=== PATIENT | female | born 1940 | race Caucasian/White ===

== ENCOUNTER 2017-07-06 11:05 | Emergency (ER) | payer MEDICARE, OTHER, SELFPAY ==
[2017-07-06] VITALS (7 sets, daily range): BP systolic 120–169; BP diastolic 67–74; PULSE 68–76; RESP 12–19; TEMP 36.7; O2SAT 93–100; BMI 28.3
--- NOTE | 2017-07-06 11:09 | EKG12_ITS ---
Test Reason : CP Blood Pressure : / mmHG Vent. Rate : 069 BPM Atrial Rate : 069 BPM P-R Int : 132 ms QRS Dur : 080 ms QT Int : 380 ms P-R-T Axes : 049 024 080 degrees QTc Int : 407 ms Normal sinus rhythm Nonspecific ST abnormality Abnormal ECG Confirmed by JARON VALDEZ ([id number]), pictures editor LOBO JACKSON ([id number]) on 07/10/2017 9:45:24 AM Referred By: TODD Confirmed By:JARON VALDEZ
--- NOTE | 2017-07-06 11:09 | RAD_ITS ---
STUDY: X-RAY CHEST REASON FOR EXAM: Female, 77 years old. Chest tightness. TECHNIQUE: Single AP portable view of the chest. COMPARISON: Comparison is made with prior study dated August 21, 2016. FINDINGS: EKG electrodes are seen. Hyperinflation. Scattered calcified granulomas. No acute abnormality is seen. There is no demonstrated pleural abnormality. Normal size heart. Normal mediastinum and eric. Normal visualized pulmonary arteries. There is atherosclerotic calcification of the aortic arch with tortuosity. There are degenerative changes of the visualized thoracic spine. Normal visualized ribs, clavicles, and shoulders. There is no demonstrated abnormality of the visualized soft tissue structures of the upper abdomen. RAD/Chest 1 View (Portable) IMPRESSION: No acute abnormality is seen. Electronically Signed: Ronal Day MD at 12:19 EST Tel [phone], Service support ,
[2017-07-06 12:29] LABS: Absolute Lymphocyte Count 1.43 X10^3/ul (0.83-4.51); Absolute Neutrophil Count 4.6 X10^3/uL (2.0-7.7); Basophil# 0.03 X10^3/uL; Basophil% 0.4 % (0-1); Eosinophil# 0.13 X10^3/uL; Eosinophils% 1.9 % (0-5); Hematocrit 40.3 % (37-47); Lymphocyte # 1.43 X10^3/ul (4.0); Mean Corp Hgb Conc 34.7 g/gl (32-36); Mean Corpuscular Hgb 29.2 pg (27.0-32.0); Mean Corpuscular Volume 84.1 fL (81-99); Mean Platelet Vol. 10.7 fl (6.2-12.0); Monocyte% 8.8 % (0-10); Neutrophil # 4.62 X10^3/uL (2.7-7.7); Neutrophil % 67.8 % (47-70); Platelet Count 202 K/mm3 (150-450); RBC Distribution Width CV 13.4 % (11.6-14.6); RBC Distribution Width SD 40.1 fl (35.1-43.9); Red Blood Count 4.79 M/mm3 (4.2-5.4); White Blood Count 6.8 K/mm3 (4.4-11.0)
[2017-07-06 12:34] LABS: POSITIVE COUNT NO; POSITIVE DIFFERENTIAL NO; POSITIVE MORPHOLOGY NO
[2017-07-06 12:41] LABS: Anion Gap 8 (5-15); BUN 22 mg/dL (7-18); BUN/Creat Ratio 16.5 RATIO (10-20); Calcium,Total 8.4 mg/dL (8.5-10.1); Chloride 109 mmol/L (98-107); Creatinine, Serum 1.33 mg/dL (0.55-1.02); EST Glomerular Filtration Rate 41 mL/min (>60); Est Glom Filt Rate - Afr Amer 50 mL/min (>60); Estimated Creatinine Clearance 27.57 ml/min; Glucose 85 mg/dL (70-110); Potassium 4.1 mmol/L (3.5-5.1); Sodium Level 141 mmol/L (136-145)
--- NOTE | 2017-07-06 16:46 | ED.DCSUM_ITS ---
- ER Visit Summary Date of Service: 07/06/17 Chief Complaint: Chest pain History of Present Illness: The patient is a 77 F presenting for evaluation secondary to chest pain. Patient states that yesterday she had an onset of chest pain at about 2300. She describes it as a tightness in her chest that she had some radiation to her arms she went to sleep and felt that it resolved when she woke up. Patient states that abnormal activity this morning it seemed to happen again. She took some nitroglycerin and felt like it went away. Patient states that she tried to seek care at her fitness worker to urgent care but everybody directed her to the emergency department. Patient reports that she has had a negative stress test within the last 12 months. Review of systems otherwise negative. Physical Examination: Vital signs are within normal limits, patient is afebrile. General: Patient is well-nourished well-developed and in no acute distress. Head: Normocephalic, atraumatic Eyes: Pupils equal round and reactive bilaterally, extra occular motion intact bialterally ENT: Moist mucous membranes Neck: Supple, no lymphadenopathy, no JVD, no meningismus CVS: Heart regular rate and rhythm, no murmurs, rubs or gallops, radial pulses 2 + bilaterally Resp: Respirations nondistressed, lung sounds clear bilaterally Abdomen: Soft, nontender, nondistended, no palpable masses, normal bowel sounds Back: Nontender Extremities: Nontender, atraumatic, active full range of motion, no peripheral edema Skin: warm, no rashes, no petechia Neuro: Alert and oriented x 4, CN 2-12 intact, no lateralizing neurological defecits Psyc: Normal affect Test Results: EKG shows sinus rate [address] segments normal T waves, unchanged from prior EKG. CBC unremarkable, chemistry shows mild elevation of creatinine of 1.3, troponin found to be negative. Delta troponin found to be negative. Emergency Department Course and Treatment: Patient presented for evaluation secondary chest pain. Patient's workup was noted as above. Patient's CASTRO risk score was found to be 3, but she has a negative stress test within the last 12 months and her symptoms actually sound relatively atypical. I discussed her story with her fitness worker Dr. Roach who is in agreement. We performed a delta troponin at 3 hours and the patient was found to be negative. She was pain-free throughout the stay. I believe she is safe for discharge to follow up with her fitness worker. Disposition: Discharge Impression: 1. Noncardiac chest pain This note was generated with Clik[employer] dictation software. It may contain incorrect words, spelling, and punctuation that were not noted in review of the chart prior to signing ED Disposition - Plan for ED Patient: Disposition: Home or Assisted Living Chief Complaint: Chest Pain Diagnosis: Chest pain Instructions: ED Chest Pain NonCardiac Referrals: Enrique Roach MD [STAFF PHYSICIAN] - 1-2 Weeks
== END 2017-07-06 17:05 | disposition home or self-care (01) ==
PROVIDERS: Emergency Provider Emergency Medicine; Family Provider Internal Medicine; PCP Internal Medicine
DX: R07.89 Other chest pain (principal); I25.10 Atherosclerotic heart disease of native coronary artery without angina pectoris; I10 Essential (primary) hypertension; Z79.82 Long term (current) use of aspirin; Z79.02 Long term (current) use of antithrombotics/antiplatelets; Z79.899 Other long term (current) drug therapy
CPT/HCPCS: 71045; 80048; 84484; 85025; 93005; 99285

== ENCOUNTER → 2017-08-08 09:37 | Outpatient (CLI) | payer MEDICARE, OTHER, SELFPAY ==
[2017-08-08 10:28] LABS: Hematocrit 38.9 % (37-47); Hemoglobin 13.2 g/dl (12.0-15.0); Mean Corp Hgb Conc 33.9 g/gl (32-36); Mean Corpuscular Hgb 29.2 pg (27.0-32.0); Mean Corpuscular Volume 86.1 fL (81-99); Mean Platelet Vol. 10.7 fl (6.2-12.0); Platelet Count 224 K/mm3 (150-450); RBC Distribution Width CV 13.2 % (11.6-14.6); Red Blood Count 4.52 M/mm3 (4.2-5.4); White Blood Count 6.8 K/mm3 (4.4-11.0)
[2017-08-08 10:33] LABS: Scan Indicated on CBC? Y/N NO
[2017-08-08 11:10] LABS: Anion Gap 7 (5-15); BUN 25 mg/dL (7-18); BUN/Creat Ratio 24.3 RATIO (10-20); Calcium,Total 8.5 mg/dL (8.5-10.1); Chloride 108 mmol/L (98-107); Creatinine, Serum 1.03 mg/dL (0.55-1.02); EST Glomerular Filtration Rate 55 mL/min (>60); Est Glom Filt Rate - Afr Amer 67 mL/min (>60); Glucose 79 mg/dL (74-106); Sodium Level 141 mmol/L (136-145)
== END ==
PROVIDERS: Family Provider Internal Medicine; PCP Internal Medicine; Visit Provider Internal Medicine Cardiovascular Disease
DX: I25.118 Atherosclerotic heart disease of native coronary artery with other forms of angina pectoris (principal); R07.9 Chest pain, unspecified; Z95.5 Presence of coronary angioplasty implant and graft
CPT/HCPCS: 36415; 80048; 85027

== ENCOUNTER 2017-08-13 09:05 | Day surgery (SDC) | payer MEDICARE, OTHER, SELFPAY ==
[2017-08-10 10:36] VITALS: BMI 28.6
[2017-08-13] VITALS (34 sets, daily range): BP systolic 98–185; BP diastolic 43–102; PULSE 58–75; RESP 11–22; TEMP 36.3–37; O2SAT 94–99; BMI 29.0; BMI 29.1
--- NOTE | 2017-08-13 11:24 | CL.D_ITS ---
Patient Name: LISETTE ENAMORADO Study Date: 08/13/2017 Performing: Enrique oRach MD Ht: 62.59 inches 159 cm : 1940 Wt: 158.73 lbs 72 kg Age: 77 Gender: female BSA: 1.74 PROCEDURE(S) PERFORMED AH98-HWH/COR/LV CLINICAL PROFILE AND INDICATIONS INDICATIONS: 77 yo lady with chest pain Stress/Imaging Stress/Image Study Performed: No Angina Classification Anginal Classification w/in 2 Weeks: CCS III CAD Presentations: Unstable angina. CONCLUSIONS CAD with instent stenosis of the LAD and instent stenosis of non dominant RCA RECOMMENDATIONS Referred for immediate PCI DESCRIPTION OF PROCEDURE The patient arrived to the procedure lab. The risks and benefits of the procedure as well as a full d escription of our services here and current unavailability of surgical backup were fully explained to the patient and/or their significant other prior to the catheterization. The Timeout was completed, verifying the correct patient and procedure. The patient's procedural site was prepped and draped in the usual fashion. Local anesthetic was given subcutaneously to right radial region with Lidocaine 2% . Using a modified Seldinger technique, arterial access was obtained via the right radial artery, a 6 Fr sheath was inserted. Left Coronary Artery selective angiography was performed in multiple views u sing a 5 Fr. 4.0 Caney catheter. Right Coronary Artery selective angiography was then performed in mu ltiple views using a 5 Fr. 4.0 Caney catheter. Left Coronary Artery selective angiography was perform ed in multiple views using a 5 Fr. JL3.5 catheter. Left Ventriculography was performed in MONROY project ion using a 5 Fr. Pigtail catheter. LV to AO pullback pressures were then recorded. CORONARY ANGIOGRAPHY DOMINANCE: Left Dominant LEFT HEART ASSESSMENT Normal LV wall motion Normal Left Ventricular systolic function LEFT MAIN: Angiographically normal LEFT ANTERIOR DECENDING ARTERY: MID LAD: Previously placed stent has an instent 99 % restenosis CIRCUMFLEX ARTERY: Angiographically normal RIGHT CORONARY ARTERY: OSTIAL RCA: Previously placed stent has an instent 80 % restenosis COMPLICATIONS PROCEDURE MEDICATIONS Fentanyl 50 mcg IV Versed 1 mg IV Versed 1 mg IV Fentanyl 50 mcg IV Oxygen: 2 L/min via nasal cannula Heparin diluted in 23cc Heparinized saline. Patient given 10cc IA of this solution. 08/13/2017 10:52:3 2 Heparin 6000 unit(s) IV 08/13/2017 11:16:19 Verapamil 2.5mg, Ntg 100mcgs, 2000 units of Heparin diluted in 23cc Heparinized saline. Patient give n 10cc IA of this solution. 08/13/2017 10:52:32 Verapamil 2.5mg, Ntg 100mcgs, given IA 08/13/2017 11:21:38 SUMMARY OF HEMODYNAMIC DATA Time AIR REST ECG 09:31:24 AO 130/69 (94) SA 10:56:08 LV 165/12, 22 11:10:17 LV 167/11, 21 11:10:24 LV 153/12, 22 11:11:33 LVp 164/23, 26 11:11:38 AOp 167/76 (115) 11:11:43 AO 166/76 (115) 11:11:50 Signed By Enrique Roach MD On 08/13/2017 11:24:16 Enrique Roach MD
[2017-08-13 11:51] LABS: ACT Activated Clotting Time 224 sec (74-137)
[2017-08-13 11:51] LABS: ACT Activated Clotting Time 252 sec (74-137)
--- NOTE | 2017-08-13 11:53 | CL.I_ITS ---
Patient Name: LISETTE ENAMORADO Study Date: 08/13/2017 Performing: Christian Linton MD Ht: 62.6 inches 159 cm : 1940 Wt: 158.73 lbs 72 kg Age: 77 Gender: female BSA: 1.74 PROCEDURE(S) PERFORMED PF50-MKV W OR WO PTCA, SINGLE CORONARY ARTERY CLINICAL PROFILE AND CO-MORBIDITIES INDICATIONS: 77 yo lady with chest pain Stress/Imaging Stress/Image Study Performed: No Angina Classification Anginal Classification w/in 2 Weeks: CCS III CAD Presentations: Unstable angina. CONCLUSIONS Successful TAMMY to ISR Mid LAD using Resolute Integrity 2.5x12 mm RECOMMENDATIONS ASA Indefinitley Plavix for at least 12 months DESCRIPTION OF PROCEDURE The patient arrived to the procedure lab. The risks and benefits of the procedure as well as a full d escription of our services here and current unavailability of surgical backup were fully explained to the patient and/or their significant other prior to the catheterization. The Timeout was completed, verifying the correct patient and procedure. The patient's procedural site was prepped and draped in the usual fashion. Local anesthetic was given subcutaneously to right radial region with Lidocaine 2% Using a modified Seldinger technique,arterial access was obtained via the right radial artery, a 6Fr sheath was inserted. Left Coronary Artery selective angiography was performed in multiple views usin g a 5 Fr. 4.0 Melbourne catheter. Right Coronary Artery selective angiography was then performed in multi ple views using a 5 Fr. 4.0 [place] catheter. Left Coronary Artery selective angiography was performed in multiple views using a 5 Fr. JL3.5 catheter. Left Ventriculography was performed in MONROY projection using a 5 Fr. Pigtail catheter. LV to AO pullback pressures were then recorded.The images were revie wed and options discussed. A decision was then made to proceed with an Intervention, IVUS or other ad junct procedure. XB 3 Guide catheter was inserted and engaged into the LCA. Runthrough Guide wire was advanced to the LAD. 2.5x12 Resolute Drug Eluting stent was inserted Drug Eluting stent was advanced across the lesio n in the LAD, mid. Angiogram performed post stent deployment. 2.5x15 NC Emerge Balloon catheter was i nserted. Balloon catheter was inserted post stent. Balloon catheter was advanced across lesion in the LAD, mid. Angiogram performed post stent deployment. Angiogram performed post stent deployment.. . The arterial sheath was pulled and a TR Band was applied for hemostasis. 18cc of air. INTERVENTION INFORMATION LESION SITE: LAD (Mid) Lesion Complexity: Non-High/Non-C, culprit lesion: Yes, In-stent restenosis: Yes Pre Stenosis: 99 % Pre intervention CASTRO flow: 2 PROCEDURE: Drug Eluting Stent with post dilatation Post Stenosis: 0 % Post intervention CASTRO flow: 3 Lesion Devices: Cordis 6 Fr XB3.0 100cm Guide Catheter Terumo .014 Runthrough Extra Floppy 180cm straight Medtronic Resolute RX TAMMY 2.5x12 Tomi Sci NC EMERGE MR 2.50x15 BALLOON COMPLICATIONS No Complications PROCEDURE MEDICATIONS Fentanyl 50 mcg IV Versed 1 mg IV Versed 1 mg IV Fentanyl 50 mcg IV Oxygen: 2 L/min via nasal cannula Heparin diluted in 23cc Heparinized saline. Patient given 10cc IA of this solution. 08/13/2017 10:52:3 2 Heparin 6000 unit(s) IV 08/13/2017 11:16:19 Heparin 1500 unit(s) IV 08/13/2017 11:25:29 Nitro 200 mcg IC 08/13/2017 11:31:21 Plavix 300 mg PO 08/13/2017 11:41:33 Verapamil 2.5mg, Ntg 100mcgs, 2000 units of Heparin diluted in 23cc Heparinized saline. Patient give n 10cc IA of this solution. 08/13/2017 10:52:32 Verapamil 2.5mg, Ntg 100mcgs, given IA 08/13/2017 11:21:38 SUMMARY OF HEMODYNAMIC DATA Time AIR REST ECG 09:31:24 AO 130/69 (94) SA 10:56:08 LV 165/12, 22 11:10:17 LV 167/11, 21 11:10:24 LV 153/12, 22 11:11:33 LVp 164/23, 26 11:11:38 AOp 167/76 (115) 11:11:43 AO 166/76 (115) 11:11:50 RM AIR REST 11:24:37 AIR REST AO 143/70 (97) 11:24:39 Signed By Christian Linton MD On 08/13/2017 11:53:08 Christian Linton MD
[2017-08-13] MEDS: 0.9% Normal Saline 1,000 ML 100 ML IV (12:50)
--- NOTE | 2017-08-13 13:28 | CRPHASE1 ---
Patient Data/Charges Former Patient:: Phase II - ATTENDED CARDIAC REHAB APPROX 2 YEARS AGO Insurance #1:: [employer] FOR LIFE Poultry Offal Worker:: Enrique Roach
--- NOTE | 2017-08-13 13:29 | CRPHASE1_ITS ---
Patient Data/Charges Former Patient:: Phase II - ATTENDED CARDIAC REHAB APPROX 2 YEARS AGO Insurance #1:: [employer] FOR LIFE Outcome Analyst:: Enrique Roach
--- NOTE | 2017-08-13 13:29 | CRPHASE1 ---
Patient Data/Charges Former Patient:: Phase II - ATTENDED CARDIAC REHAB APPROX 2 YEARS AGO Insurance #1:: MEDICARE Insurance #2:: FOR LIFE Employment Consultant:: Enrique Roach Phase II Referral:: [facility] Risk Factors/Lifestyle Smoking Status: Never smoker Hx Hypertension: Yes Hx Diabetes Mellitus Type 1: No Hx Diabetes Mellitus Type 2: No Hx Dyslipidemia: Yes Hx Obesity: No Height: 62.5 m Weight:: 72 kg BMI: 0.0 Post-Menopausal: Yes Past Cardiac Illness: Coronary Artery Disease, Previous PCI w/Stent Phase I Education Given On:: [place] Knowledge of Condition:: Yes Medical/Surgical History Angina:: Yes CAD:: Yes Diabetes Type I:: No Diabetes Type II:: No Hypertension:: Yes Dyslipidemia:: Yes Discharge/Home/Social Eval Discharge Disposition: Home - PT ATTENDED REHAB IN RECENT PAST, INTRO TO CR MINIMAL, OVERVIEW GIVEN
--- NOTE | 2017-08-13 13:35 | CRPHASE1_ITS ---
Patient Data/Charges Former Patient:: Phase II - ATTENDED CARDIAC REHAB APPROX 2 YEARS AGO Insurance #1:: MEDICARE Insurance #2:: FOR LIFE Half Backer:: Enrique Roach Phase II Referral:: [facility] Risk Factors/Lifestyle Smoking Status: Never smoker Hx Hypertension: Yes Hx Diabetes Mellitus Type 1: No Hx Diabetes Mellitus Type 2: No Hx Dyslipidemia: Yes Hx Obesity: No Height: 62.5 m Weight:: 72 kg BMI: 0.0 Post-Menopausal: Yes Past Cardiac Illness: Coronary Artery Disease, Previous PCI w/Stent Phase I Education Given On:: [place] Knowledge of Condition:: Yes Medical/Surgical History Angina:: Yes CAD:: Yes Diabetes Type I:: No Diabetes Type II:: No Hypertension:: Yes Dyslipidemia:: Yes Discharge/Home/Social Eval Discharge Disposition: Home - PT ATTENDED REHAB IN RECENT PAST, INTRO TO CR MINIMAL, OVERVIEW GIVEN
--- NOTE | 2017-08-13 13:43 | CRPH1.INST_ITS ---
General Education CAD and cardiac anatomy and function:: Needs reinforcement Explanation of diagnoses and procedures:: Needs reinforcement Sign/Symptoms of MD:: Needs reinforcement Antiplatelet therapy: Needs reinforcement Proper use of NTG-SL: Not instructed Emergency procedures and activation of EMS: Not instructed Compliance of all prescribed medications: Not instructed - PT IS A RECENT ( APPROX 2 YEARS AGO) ATTENDED CARDIAC REHAB.
[2017-08-13] MEDS: cloNIDine HCl 0.1 MG Tablet PO (15:29)
[2017-08-13 15:41] LABS: M R Staph aureus DNA By PCR Negative (Negative); Specimen Processing Control PASS
[2017-08-13 15:42] LABS: Probe Check PASS
[2017-08-13] MEDS: Metoprolol Tartrate 50 MG Tablet PO (21:17)
[2017-08-14] VITALS (11 sets, daily range): BP systolic 126–153; BP diastolic 48–75; PULSE 61–69; RESP 15–22; TEMP 36.2–36.5; O2SAT 94–98
[2017-08-14 04:13] LABS: Hematocrit 36.4 % (37-47); Hemoglobin 12.4 g/dl (12.0-15.0); Mean Corp Hgb Conc 34.1 g/gl (32-36); Mean Corpuscular Hgb 29.1 pg (27.0-32.0); Mean Corpuscular Volume 85.4 fL (81-99); Mean Platelet Vol. 10.5 fl (6.2-12.0); Platelet Count 200 K/mm3 (150-450); RBC Distribution Width CV 13.1 % (11.6-14.6); RBC Distribution Width SD 40.3 fl (35.1-43.9); Red Blood Count 4.26 M/mm3 (4.2-5.4); White Blood Count 6.7 K/mm3 (4.4-11.0)
[2017-08-14 04:19] LABS: Scan Indicated on CBC? Y/N NO
[2017-08-14 05:09] LABS: Anion Gap 10 (5-15); BUN 15 mg/dL (7-18); BUN/Creat Ratio 15.3 RATIO (10-20); Calcium,Total 8.2 mg/dL (8.5-10.1); Chloride 110 mmol/L (98-107); Creatinine, Serum 0.98 mg/dL (0.55-1.02); EST Glomerular Filtration Rate 58 mL/min (>60); Est Glom Filt Rate - Afr Amer 71 mL/min (>60); Estimated Creatinine Clearance 54.97 ml/min; Glucose 82 mg/dL (74-106); Potassium 3.9 mmol/L (3.5-5.1); Sodium Level 144 mmol/L (136-145)
[2017-08-14] MEDS: Levothyroxine 50 MCG Tablet PO (05:42)
--- NOTE | 2017-08-14 05:55 | EKG12_ITS ---
Test Reason : AM Blood Pressure : / mmHG Vent. Rate : 059 BPM Atrial Rate : 059 BPM P-R Int : 152 ms QRS Dur : 076 ms QT Int : 428 ms P-R-T Axes : 041 023 050 degrees QTc Int : 423 ms Sinus bradycardia Otherwise normal ECG When compared with ECG of 06-JUL-2017 11:14, No significant change was found Confirmed by TIERA BLACK, SHANAE ([id number]), movie editor LOBO JACKSON ([id number]) on 08/17/2017 3:25:34 PM Referred By: Shanae Roach Confirmed By:SHANAE ROACH MD
--- NOTE | 2017-08-14 07:04 | PN.CARD_ITS ---
Subjectve: Patient seen and evaluated and appears to be doing well overnight with no chest pain Objective: Vital Signs Temp Pulse Resp BP Pulse Ox 97.7 F L 65 15 132/48 H 98 08/14/17 00:00 08/14/17 06:00 08/14/17 06:00 08/14/17 06:00 08/14/17 06:00 Oxygen Delivery Method Room Air Weight: 162 lb 4.163 oz Body Mass Index (BMI) 29.0 Intake and Output for Last 24 Hours 08/12/17 08/13/17 08/14/17 23:59 23:59 23:59 Intake Total 1078 / 1078 696 / 696 Output Total 300 / 300 Balance 1078 / 1078 396 / 396 General: Awake, Alert, Oriented x 3 HEENT: PERRL, EOMI, Sclera Non Icteric Neck: Supple, Good ROM, No Lymph Node Enlargement Lungs: Clear to auscultation Cardiovascular: Regular Rhythm, Normal S1, Normal S2, No Murmurs, No Rubs, No Gallops Vascular: No Carotid Bruits, Normal Femoral Pulses, Normal Radial Pulses, Normal Dorsalis Pedal Pulse, Normal Posterior Tibial Pulses Abdomen: Bowel Sounds Present, Soft, Non Tender, No HSM, No Organomegaly Extremities: No Cyanosis, No Clubbing, No edema Neurological: No Focal Motor or Sensory Deficit 08/14/17 03:45: WBC 6.7, RBC 4.26, Hgb 12.4, Hct 36.4 L, MCV 85.4, MCH 29.1, MCHC 34.1, RDW 13.1, RDW Differential 40.3, Plt Count 200, MPV 10.5 08/14/17 03:45: Sodium 144, Potassium 3.9, Chloride 110 H, Carbon Dioxide 24.0, Anion Gap 10, BUN 15, Creatinine 0.98, Est GFR (MDRD) Af Amer 71, Est GFR (MDRD ) Non-Af 58 L, BUN/Creatinine Ratio 15.3, Glucose 82, Calcium 8.2 L Rhythm: EKG: Normal sinus rhythm with no acute changes Assessment/Plan 1. Coronary artery disease Patient is status post angioplasty and stenting of the left anterior descending artery with a drug-eluting stent. She still has residual disease in a previously stented nondominant right coronary artery but at this particular time she will be managed with medical therapy. She will continue with aspirin and clopidogrel beta-raj and statin. Cardiac rehabilitation would be instituted. No significant change in the hemoglobin and no increase in the creatinine was noted. No EKG changes were noted. Can be discharged for outpatient follow-up.
--- NOTE | 2017-08-14 07:06 | PCM.DC.CCA ---
Discharge Diet: Low fat/ Low Cholesterol Lifting Restrictions: 10 pounds and also avoid any pushing or pulling for 3 days after your test. Additional Activity Instructions:: You must have someone drive you home. Do not drive until instructed by your doctor. You must have someone stay with you all night after your test. Rest in bed or on the couch until the next morning. Limit the number of times you go up and down stairs the day of your test. Apply pressure to the puncture site if you sneeze or cough. Allergies/Adverse Reactions: Allergies DEIRDRE Inhibitors Allergy (Verified 08/13/17 09:28) Unknown ARB-Angiotensin Receptor Antagonist Allergy (Verified 08/13/17 09:28) Unknown atorvastatin calcium [From Lipitor] Allergy (Verified 08/13/17:28) Unknown pravastatin [From Pravachol] Allergy (Verified 08/13/17 09:28) Unknown Medications to take at Discharge Aspirin [Aspirin, Baby] 81 mg PO DAILY@0800 08/11/13 Isosorbide Mononitrate [Imdur] 60 mg PO DAILY 08/11/13 Levothyroxine Sodium [Levoxyl] 50 mcg PO DAILY 08/11/13 Metoprolol Tartrate [Lopressor (beta raj)] 50 mg PO BID 08/11/13 Nitroglycerin [Nitrostat] 0.4 mg SUBLINGUAL Q5M PRN 08/11/13 Cholecalciferol (Vitamin D3) [Vitamin D3] 50,000 unit PO Q7D 11/24/16 colestipol 1 gram tablet 2 g PO BID #360 tab 06/26/17 clopidogrel 75 mg tablet 75 mg PO DAILY #90 tab 07/17/17 Aspirin E.C. [Ecotrin] 81 mg PO DAILY@0800 tablet 08/14/17 Clopidogrel Bisulfate [Plavix] 75 mg PO DAILY tablet 08/14/17 Primary Care Physician: Mamie Mendez MD [Primary Care Provider] - When: [facility] office will call Proposed Discharge Date: 08/14/17 Cardiac Rehabilitation Info Cardiac Rehabilitation Program Information: Cardiac Rehabilitation is important for patients like you who are recovering from a heart problem. Cardiac rehabilitation programs are recognized as integral to the continued care of the patient with coronary heart disease. The cardiac rehabilitation program is designed to optimize a patient's physical, psychological, and social functioning. Health home care liaison work in cardiac rehabilitation programs and assist you with getting the treatments you need to get stronger and healthier - like exercise, healthy eating habits, and medications. Cardiac rehabilitation has been show to help people with heart problems live longer and have better life enjoyment than people who do not go to cardiac rehabilitation. Please contact the Cardiac Rehabilitation Program at [facility] at in two weeks if you have not heard from them.
[2017-08-14] MEDS: Metoprolol Tartrate 50 MG Tablet PO (08:02)
[2017-08-14] MEDS: Isosorbide Mononitrate 30 MG Tablet 60 MG PO (08:03)
[2017-08-14] MEDS: Clopidogrel Bisulfate 75 MG Tablet PO (08:03)
[2017-08-14] MEDS: Aspirin E.C. 81 MG Tablet PO (08:03)
== END 2017-08-14 08:59 | disposition home or self-care (01) ==
LOC: CLSP 09:07 → ICU 11:47
PROVIDERS: Internal Medicine Cardiovascular Disease; Family Provider Internal Medicine; PCP Internal Medicine; Visit Provider Internal Medicine Cardiovascular Disease
DX: R07.9 Chest pain, unspecified (principal); I25.10 Atherosclerotic heart disease of native coronary artery without angina pectoris; I73.9 Peripheral vascular disease, unspecified; I10 Essential (primary) hypertension; E78.5 Hyperlipidemia, unspecified; I65.29 Occlusion and stenosis of unspecified carotid artery; Z95.818 Presence of other cardiac implants and grafts; Z79.82 Long term (current) use of aspirin; Z79.02 Long term (current) use of antithrombotics/antiplatelets; Z79.899 Other long term (current) drug therapy
CPT/HCPCS: 80048; 85027; 85347; 87641; 92928; 93005; 93458; 99152; 99153; J3010; J7030; J7040; Q9967; C1725; C1769; C1874; C1887; C1894; C9600

== ENCOUNTER → 2017-09-24 12:55 | Outpatient (CLI) | payer MEDICARE, OTHER, SELFPAY ==
--- NOTE | 2017-09-24 12:59 | PCM.CR.ITP ---
Exercise - Initial Assessment - Visit Date of Eval: 09/24/17 - Initial Eval - Stages of Change Stages of Change:: Contemplate - Exercise Prescription Mode:: Treadmill, Biodyne, Rower, Airdyne, NuStep, Arm Ergometer Angina with exercise?: No Target Heart Rate:: 106-114 - Hypertension Do any of the following apply?: No Resting Blood Pressure:: 136/60 - Intervention Home Exercise/Activity Goal:: Sitting Time <3 hrs/day - Education Goals:: Warm-up, RPE NIKHIL Scale, S/S, Safe Exercise, Self-Monitoring - Exercise Program Goals Exercise Program Goals: Aerobic Activity >30 min, B/P <140/90 Nutrition - Initial Assessment - Program Goals Nutrition Program Goals: LDL <70. Total Cholesterol <200. HDL >45. Triglycerides <150. HgbA1C <7%. BMI <25 - Visit Date of Assessment:: 09/24/17 - Stages of Change Stages of Change:: Contemplate - Diabetes Diabetes:: No - Weight Management Height: 1.57 m Weight:: 71.668 kg Total Score:: 1 - Intervention Referral to dietitian:: No Referral to Diabetic Clinic:: No Will attend diet classes:: Yes - Education Gave educational materials for:: Signs & symptoms of hypoglycemia, Signs & symptoms of hyperglycemia, Relate diabetes to coronary artery disease, Healthy eating Nutrition - 30-Day Assessment - Program Goals Nutrition Program Goals: LDL <70. Total Cholesterol <200. HDL >45. Triglycerides <150. HgbA1C <7%. BMI <25 - Diabetes Diabetes:: No Nutrition - 60-Day Assessment - Program Goals Nutrition Program Goals: LDL <70. Total Cholesterol <200. HDL >45. Triglycerides <150. HgbA1C <7%. BMI <25 - Diabetes Diabetes:: No Nutrition - 90-Day Assessment - Program Goals Nutrition Program Goals: LDL <70. Total Cholesterol <200. HDL >45. Triglycerides <150. HgbA1C <7%. BMI <25 - Diabetes Diabetes:: No Nutrition - Final Assessment - Program Goals Nutrition Program Goals: LDL <70. Total Cholesterol <200. HDL >45. Triglycerides <150. HgbA1C <7%. BMI <25 - Diabetes Diabetes:: No Tobacco - Initial Assessment - Program Goals Tobacco Program Goals: Complete smoking cessation. Attend education classes. Improve Knowledge Test score - Stage of Change Stages of Change:: Contemplate - Learning Barriers Learning Barriers: Vision Total Score:: 8 - Family Support Do you have family support?: Yes - Tobacco Use Tobacco Use: Non-smoker Do you use smokeless tobacco?: No - Intervention Smoking Cessation Referral:: No Individual Education/Counseling:: No Education Schedule Given:: Yes - Education Gave educational material for:: Tobacco triggers, Coronary artery disease, Risk factors, Sexuality, Medical compliance, Cardiac A&P, Angina signs & symptoms Psychosocial - Initial Assess - Target Goals Target Goals: Assess presence or absence of depression. Using a valid screening tool, maximizes coping skills. Positive support system - Stages of Change Stages of Change:: Contemplate - Psychosocial Test Tool Used:: HANDS Depression Questionnaire Total Mood Screening Score:: 6 Self-Efficacy Score:: 9 - Intervention PS - Interventions: Yes Attend Stress Management Classes, Yes Uses Stress Management Skills, No Referral to Mental Health, No Referral to [facility] Case Management, No Referral to Physician Patient Health Questionnaire Initial Assessment 1. Little interest or pleasure in doing things: Not at all 2. Feeling down, depressed, or hopeless: Several days 3. Trouble falling or staying asleep, or sleeping too much: More than half the days 4. Feeling tired or having little energy: Several days 5. Poor appetite or overeating: Not at all 6. Feeling bad about yourself -- or that you are a failure or have let yourself or your family down: Not at all 7. Trouble concentrating on things, such as reading the newspaper or watching television: Several days 8. Moving or speaking so slowly that other people could have noticed. Or the opposite - being so fidgety or restless that you have been moving around a lot more than usual: Several days 9. Thoughts that you would be better off , or of hurting yourself in some way: Not at all How difficult have these problems made it for you to do your work, take care of things at home, or get along with other people?: Not difficult at all Total Score: 6 Knowledge Test - Check your knowledge Initial The #1 cause of in the [place] each year is:: Heart disease Which of the following is a common treatment for heart disease?: All of the above The arteries that feed the heart are called:: Coronary arteries HDL cholesterol is known as the good cholesterol.: True What disease increases your risk for heart disease?: Diabetes What food product raises blood cholesterol level the most?: Carbohydrates The bad cholesterol in the blood is called:: LDL Hypertension is another word for:: High blood pressure A blood pressure reading of 148/88 is considered normal.: False Exercise will only benefit your health when your heart rate reaches a target level.: True Total Score:: 8 Self-Efficacy Initial Assessment We would like to know how confident you are in doing certain activities. Please select your confidence level for:: Select your confidence level for the following using the scale 1-10 where 1 is not at all confident and 10 is totally confident. Your score is the average of all 6 responses. Fatigue: How confident are you that you can keep the fatigue caused by your disease from interfering with the things you want to do? Select Number: 8 Physical Discomfort or Pain: How confident are you that you can keep the physical discomfort or pain of your disease from interfering with the things you want to do? Select Number: 9 Emotional Distress: How confident are you that you can keep the emotional distress caused by your disease from interfering with the things you want to do? Select Number: 10 Other Symptoms or Health Problems: How confident are you that you can keep other symptoms or health problems from interfering with the things you want to do? Select Number: 9 Different Tasks and Activities: How confident are you that you can do the different tasks and activities needed to manage your health condition so as to reduce your need to see a doctor? Select Number: 10 Medication: How confident are you that you can do things other than just taking medication to reduce how much your illness affects your everyday life? Select Number: 10 Total Score:: 9 Nutrition Survey - Nutrition Survey Instructions Scoring Instructions: Scoring is as follows: Yes = 1 points. No = 0 point. Patient score that is >/=12 is considered to be at potential nutritional risk and could benefit from a referral to a registered dietitian. - Nutrition Survey Initial Have you lost >10 lbs over the past 2 months without trying?: No Are you following a special diet at home for diabetes, low fat, or low salt?: No Are you interested in meeting with a dietitian for help understanding your diet?: No Do you eat less than 3 meals a day?: No Do you eat fatty meats (kumari, sausage, ribs, etc), fried foods, desserts, large amounts of salad dressings, margarine, butter, or cheese most days?: No Do you have food allergies? [Enter types in comment field]: Yes Do you eat in restaurants more than 3 times a week?: No Do you season food with salt, seasoning salt, or garlic salt?: No Do you used canned, boxed, frozen meals, or soups, seasoning packets?: No Total Score:: 1 Cardiac Rehabilitation Goals - Cardiac Rehab Goals Cardiac Rehabilitation Goals: 1. Maintain the individual as the primary focus of care. 2. To improve the patient's quality of life. 3. Identification of cardiac risk factors and provide cardiac risk factor management. 4. Enhance the psychosocial status of the patient. 5. Reconditioning enough to allow the patient to resume customary activities. 6. Control symptoms of cardiac disease - Scale Scale for measuring improvement of personal goals: Enter appropriate number in Comments. 2 = Unchanged. 3 = Slightly Better. 4 = Moderate Improvement. 5 = Met my Goal Initial Assessment Personal Goals: 30-day Re-assessment: Improve energy level, Improve muscle strength and endurance, Control risk factors (learn risk factor modification)
--- NOTE | 2017-09-24 13:00 | PCM.CR.HP2 ---
CR - History & Physical - General Arrival date:: 09/24/17 Arrival time:: 13:00 Date of Referral:: 08/13/17 Date of CR Evaluation:: 09/24/17 Referring Physician: Dr. Enrique Roach Primary Diagnosis: Z95.5, I 25.10 08/13/17 - History of Present Cardiac Event Onset Date: Enter Onset Date of cardiac illnesses in Comment field below PTCA or coronary stenting:: Yes - Medications Home Medications: Ambulatory Orders Medication Instructions Recorded Aspirin [Aspirin, Baby] 81 mg PO DAILY@0800 08/11/13 Isosorbide Mononitrate [Imdur] 60 mg PO DAILY 08/11/13 Levothyroxine Sodium [Levoxyl] 50 mcg PO DAILY 08/11/13 Metoprolol Tartrate [Lopressor 50 mg PO BID 08/11/13 (beta raj)] Nitroglycerin [Nitrostat] 0.4 mg SUBLINGUAL Q5M PRN 08/11/13 Cholecalciferol (Vitamin D3) 50,000 unit PO Q7D 11/24/16 [Vitamin D3] colestipol 1 gram tablet 2 g PO BID #360 tab 06/26/17 clopidogrel 75 mg tablet 75 mg PO DAILY #90 tab 07/17/17 Aspirin E.C. [Ecotrin] 81 mg PO DAILY@0800 tablet 08/14/17 Clopidogrel Bisulfate [Plavix] 75 mg PO DAILY tablet 08/14/17 - Allergies Allergies/Adverse Reactions: Allergies DEIRDRE Inhibitors Allergy (Verified 08/13/17 09:28) Unknown ARB-Angiotensin Receptor Antagonist Allergy (Verified 08/13/17 09:28) Unknown atorvastatin calcium [From Lipitor] Allergy (Verified 08/13/17 09:28) Unknown pravastatin [From Pravachol] Allergy (Verified 08/13/17 09:28) Unknown - Sleep Disorder Evaluation Hx of Sleep Apnea: Yes Do you snore loudly (louder than talking or can be heard through closed doors)?: Yes Do you often feel tired/ fatigued/ sleepy during daytime?: Yes - has machine refuses to use Has anyone observed you stop breathing during sleep?: No History of Hypertension (for STOP score): Yes STOP Results: Positive Advanced Directives - Advanced Directives Power of [employer] Dispatcher: Yes Living Will: Yes Advance Directives Information Provided: Yes Advance Directives on File: Yes DNR Order?:: No Past Medical History - Past Medical Illness Medical History: Past Medical History (Last Reviewed 08/15/17 @ 17:11 by Enrique Roach MD) Intermittent claudication (Chronic) I73.9 Carotid artery disease (Chronic) I77.9 Hyperlipidemia (Chronic) E78.5 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 Ortez @ [facility]; PTCA and TAMMY to mid LAD 09/26/[address] Chilel at [facility]; [place] and TAMMY to Ostial RCA 08/12/2013 @ [facility] per Dr. Godinez HTN (hypertension) (Chronic) I10 - Past Surgical History Surgical History: Past Surgical History (Last Reviewed 08/15/17 @ 17:11 by Enrique Roach MD) History of left heart catheterization (Chronic) Z98.890 09/16/[address] Chilel [facility];03/09/[address] Golden @ [facility]; 09/25/12 @ [facility] per Dr. Roach;08/11/13 @ [facility] per Dr. Roach (see stented coronary stent for subsequent stent procedures) Stented coronary artery (Chronic) Z95.5 PTCA and TAMMY to RCA 03/09/[address] Ortez @ [facility]; PTCA and TAMMY to mid LAD 09/26/[address] Chilel at [facility]; Cut[place] Balloon and TAMMY to Ostial RCA 08/12/2013 @ [facility] per Dr. Godinez Surgical History: appendectomy, tonsillectomy Social History - Smoking History Smoking Status: Never smoker Hx Tobacco Use: No Hx Smoking Exposure: No - Alcohol Use Alcohol Usage: No - Substance Abuse Hx Substance Use: No - Occupation Occupation (List type of work in comments):: Retired - Hobbies, Recreation, Social Activities Hobbies: Reading Recreational Activities: I am able to engage in all my recreational activities Social Environment - Status Marital Status: - Current Living Arrangements Living Environment:: Spouse - Children How many children do you have?: 2 Do any of your children live nearby?: No - Safety Do you feel safe in your surroundings?: Yes - Assistance Do you need any assistance at home?: none Review of Systems - Review of Systems Hints: Right click = Denies (Slash). Left click = Reports ([place]) Review of Present Symptoms: Reports: PVD - claudication, Angina, Appetite - Normal, Sleep - Normal. Denies: Shortness of Breath at Rest, Shortness of Breath with Exertion, Operative Discomfort, Wound Healing, Dizziness/Lightheadedness, Appetite - Special Diet, Sexual Changes - Pain Is Patient Pain Free?: No Pain Location: other - arms and legs Pain Level: 11/18 Risk Factor Assessment - Vital Signs Pulse Ox: 96 - Pulse Pulse Rate: 78 Pulse Rhythm: Regular - Hypertension How long have you been treated?: 8 Blood Pressure Sitting - Left Arm: 136/60 - Diabetes Nutrition Referral for Diabetes: No - Obesity Height: 1.57 m Weight:: 71.668 kg Weight in Pounds: 158.0 lbs Body Mass Index (BMI): 28.9 Nutritional Referral for Obesity: No - Physical Inactivity Physical Inactivity: Recreational activity - very little due to leg pain - Risk Stratification Risk Guidelines: Moderate Risk: Risk Factor for Smoking, Risk Factor for Dyslipidemia, Risk Factor for Diabetes, Risk Factor for Obesity, Risk Factor for Hypertension, Risk Factor for Sedentary Lifestyle, Risk Factor for Depression - For Smoking Smoking Risk Guidelines: Smoking Low Risk: None or quit greater than 6 months ago. Smoking Moderate Risk: Smoker or quit 6 months or less ago. Smoking High Risk: Smoker - For Dyslipidemia Dyslipidemia Risk Guidelines: Low Risk: Moderate Risk: High Risk: 15-25% fat 25.1-29% fat >/= 30% fat. <7% sat fat 7-9% sat fat >9% sat fat. <150 mg chol 150-299 mg chol >/= 300 mg chol. LDL <100 LDL 100-129 LDL >/= 130. Chol/HDL ratio <5.0 Chol/HDL ratio 5.0-6.0 Chol/HDL ratio >6.0. Triglycerides <100 Triglycerides 100-149 Triglycerides >/= 150 - For Diabetes Mellitus Diabetes Risk Guidelines: Diabetes Low Risk: HgA1c <6.5% and/or FBG <120. Diabetes Moderate Risk: HgA1c 6.6-7.9% and/or FBG 120-180. Diabetes High Risk: HgA1c >/= 8% and/or FBG >180 - For Obesity/Overweight Obesity/Overweight Risk Guidelines: Obesity Low Risk: BMI <25.0. Obesity Moderate Risk: BMI 25-29.9. Obesity High Risk: BMI >/= 30.0 - For Hypertension Hypertension Risk Guidelines: Hypertension Low Risk: Systolic <120 and Diastolic <80. Hypertension Moderate Risk: Systolic 120-139 and Diastolic 80-89. Hypertension High Risk: Systolic >/= 140 and Diastolic >/= 90 - For Sedentary Lifestyle Sedentary Lifestyle Risk Guidelines: Sedentary Lifestyle Low Risk: >/= 1,500 kcal/week. Sedentary Lifestyle Moderate Risk: 700-1,499 kcal/week. Sedentary Lifestyle High Risk: < 700 kcal/week - For Depression Depression Risk Guidelines: Depression Low Risk: Not clinically depressed. Depression Moderate Risk: Mildly depressed. Depression High Risk: Clinically depressed Motivation - Motivation to Participate On a scale of 1 to 10, how prepared are you to commit to attending program?: 8 What do you see as barriers to successfully being able to complete the program?: active schedule What do you see as the benefits of succesfully completing the program? In other words, what do you hope to get out of participating in the program?: more energy Are there issues you are dealing with that will interfere with completing the program?: active schedule Do you have a spouse or signficant other, family or friends who will help support you to complete the program?: spouse
--- NOTE | 2017-09-24 13:12 | CR.HP_ITS ---
CR - History & Physical - General Arrival date:: 09/24/17 Arrival time:: 13:00 Date of Referral:: 08/13/17 Date of CR Evaluation:: 09/24/17 Referring Physician: Dr. Enrique Roach Primary Diagnosis: Z95.5, I 25.10 08/13/17 - History of Present Cardiac Event Onset Date: Enter Onset Date of cardiac illnesses in Comment field below PTCA or coronary stenting:: Yes - Medications Home Medications: Ambulatory Orders Medication Instructions Recorded Aspirin [Aspirin, Baby] 81 mg PO DAILY@0800 08/11/13 Isosorbide Mononitrate [Imdur] 60 mg PO DAILY 08/11/13 Levothyroxine Sodium [Levoxyl] 50 mcg PO DAILY 08/11/13 Metoprolol Tartrate [Lopressor 50 mg PO BID 08/11/13 (beta raj)] Nitroglycerin [Nitrostat] 0.4 mg SUBLINGUAL Q5M PRN 08/11/13 Cholecalciferol (Vitamin D3) 50,000 unit PO Q7D 11/24/16 [Vitamin D3] colestipol 1 gram tablet 2 g PO BID #360 tab 06/26/17 clopidogrel 75 mg tablet 75 mg PO DAILY #90 tab 07/17/17 Aspirin E.C. [Ecotrin] 81 mg PO DAILY@0800 tablet 08/14/17 Clopidogrel Bisulfate [Plavix] 75 mg PO DAILY tablet 08/14/17 - Allergies Allergies/Adverse Reactions: Allergies DEIRDRE Inhibitors Allergy (Verified 08/13/17 09:28) Unknown ARB-Angiotensin Receptor Antagonist Allergy (Verified 08/13/17 09:28) Unknown atorvastatin calcium [From Lipitor] Allergy (Verified 08/13/17 09:28) Unknown pravastatin [From Pravachol] Allergy (Verified 08/13/17 09:28) Unknown - Sleep Disorder Evaluation Hx of Sleep Apnea: Yes Do you snore loudly (louder than talking or can be heard through closed doors)? : Yes Do you often feel tired/ fatigued/ sleepy during daytime?: Yes - has machine refuses to use Has anyone observed you stop breathing during sleep?: No History of Hypertension (for STOP score): Yes STOP Results: Positive Advanced Directives - Advanced Directives Power of [employer] Floor [employer]: Yes Living Will: Yes Advance Directives Information Provided: Yes Advance Directives on File: Yes DNR Order?:: No Past Medical History - Past Medical Illness Medical History: Past Medical History (Last Reviewed 08/15/17 @ 17:11 by Enrique Roach MD) Intermittent claudication (Chronic) I73.9 Carotid artery disease (Chronic) I77.9 Hyperlipidemia (Chronic) E78.5 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 Ortez @ [facility]; PTCA and TAMMY to mid LAD per Dr. Chilel at [facility]; Cut[place] Balloon and TAMMY to Ostial RCA 08/12/2013 @ [facility] per Dr. Godinez HTN (hypertension) (Chronic) I10 - Past Surgical History Surgical History: Past Surgical History (Last Reviewed 08/15/17 @ 17:11 by Enrique Roach MD) History of left heart catheterization (Chronic) Z98.890 09/16/[address] Chilel [facility];03/09/[address] Golden @ [facility]; 09/25/12 @ [facility] per Dr. Roach;08/11/13 @ [facility] per Dr. Roach (see stented coronary stent for subsequent stent procedures) Stented coronary artery (Chronic) Z95.5 PTCA and TAMMY to RCA 03/09/[address] Ortez @ [facility]; PTCA and TAMMY to mid LAD per Dr. Chilel at [facility]; [place] Ball[place] and TAMMY to Ostial RCA 08/12/2013 @ [facility] per Dr. Godinez Surgical History: appendectomy, tonsillectomy Social History - Smoking History Smoking Status: Never smoker Hx Tobacco Use: No Hx Smoking Exposure: No - Alcohol Use Alcohol Usage: No - Substance Abuse Hx Substance Use: No - Occupation Occupation (List type of work in comments):: Retired - Hobbies, Recreation, Social Activities Hobbies: Reading Recreational Activities: I am able to engage in all my recreational activities Social Environment - Status Marital Status: - Current Living Arrangements Living Environment:: Spouse - Children How many children do you have?: 2 Do any of your children live nearby?: No - Safety Do you feel safe in your surroundings?: Yes - Assistance Do you need any assistance at home?: none Review of Systems - Review of Systems Hints: Right click = Denies (Slash). Left click = Reports ([place]) Review of Present Symptoms: Reports: PVD - claudication, Angina, Appetite - Normal, Sleep - Normal. Denies: Shortness of Breath at Rest, Shortness of Breath with Exertion, Operative Discomfort, Wound Healing, Dizziness/ Lightheadedness, Appetite - Special Diet, Sexual Changes - Pain Is Patient Pain Free?: No Pain Location: other - arms and legs Pain Level: 11/18 Risk Factor Assessment - Vital Signs Pulse Ox: 96 - Pulse Pulse Rate: 78 Pulse Rhythm: Regular - Hypertension How long have you been treated?: 8 Blood Pressure Sitting - Left Arm: 136/60 - Diabetes Nutrition Referral for Diabetes: No - Obesity Height: 1.57 m Weight:: 71.668 kg Weight in Pounds: 158.0 lbs Body Mass Index (BMI): 28.9 Nutritional Referral for Obesity: No - Physical Inactivity Physical Inactivity: Recreational activity - very little due to leg pain - Risk Stratification Risk Guidelines: Moderate Risk: Risk Factor for Smoking, Risk Factor for Dyslipidemia, Risk Factor for Diabetes, Risk Factor for Obesity, Risk Factor for Hypertension, Risk Factor for Sedentary Lifestyle, Risk Factor for Depression - For Smoking Smoking Risk Guidelines: Smoking Low Risk: None or quit greater than 6 months ago. Smoking Moderate Risk: Smoker or quit 6 months or less ago. Smoking High Risk: Smoker - For Dyslipidemia Dyslipidemia Risk Guidelines: Low Risk: Moderate Risk: High Risk: 15-25% fat 25.1-29% fat >/= 30% fat. <7% sat fat 7-9% sat fat >9% sat fat. <150 mg chol 150-299 mg chol >/= 300 mg chol. LDL <100 LDL 100-129 LDL >/= 130. Chol/HDL ratio <5.0 Chol/HDL ratio 5.0-6.0 Chol/HDL ratio >6.0. Triglycerides <100 Triglycerides 100-149 Triglycerides >/= 150 - For Diabetes Mellitus Diabetes Risk Guidelines: Diabetes Low Risk: HgA1c <6.5% and/or FBG <120. Diabetes Moderate Risk: HgA1c 6.6-7.9% and/or FBG 120-180. Diabetes High Risk: HgA1c >/= 8% and/or FBG >180 - For Obesity/Overweight Obesity/Overweight Risk Guidelines: Obesity Low Risk: BMI <25.0. Obesity Moderate Risk: BMI 25-29.9. Obesity High Risk: BMI >/= 30.0 - For Hypertension Hypertension Risk Guidelines: Hypertension Low Risk: Systolic <120 and Diastolic <80. Hypertension Moderate Risk: Systolic 120-139 and Diastolic 80-89. Hypertension High Risk: Systolic >/= 140 and Diastolic >/= 90 - For Sedentary Lifestyle Sedentary Lifestyle Risk Guidelines: Sedentary Lifestyle Low Risk: >/= 1 ,500 kcal/week. Sedentary Lifestyle Moderate Risk: 700-1,499 kcal/week. Sedentary Lifestyle High Risk: < 700 kcal/week - For Depression Depression Risk Guidelines: Depression Low Risk: Not clinically depressed. Depression Moderate Risk: Mildly depressed. Depression High Risk: Clinically depressed Motivation - Motivation to Participate On a scale of 1 to 10, how prepared are you to commit to attending program?: 8 What do you see as barriers to successfully being able to complete the program? : active schedule What do you see as the benefits of succesfully completing the program? In other words, what do you hope to get out of participating in the program?: more energy Are there issues you are dealing with that will interfere with completing the program?: active schedule Do you have a spouse or signficant other, family or friends who will help support you to complete the program?: spouse
[2017-09-24 13:56] VITALS: BP 136/60
[2017-09-24 13:57] VITALS: BP 136/60; PULSE 78; O2SAT 96; BMI 28.9
== END ==
PROVIDERS: Family Provider Internal Medicine; PCP Internal Medicine; Visit Provider Internal Medicine Cardiovascular Disease
DX: I25.10 Atherosclerotic heart disease of native coronary artery without angina pectoris (principal); Z95.5 Presence of coronary angioplasty implant and graft

== ENCOUNTER 2017-10-05 10:15 | Outpatient (RCR) | payer MEDICARE, OTHER, SELFPAY ==
--- NOTE | 2017-10-01 11:31 | PCM.CR.ITP ---
General Information - General Information Admitting Diagnosis: PCI w S/P coronary stenting - Education/Goals Barriers to Learning: None Individual Counselin-Day Assessment: Abnormal Cholesterol Levels, High Blood Pressure Cardiac Rehabilitation Goals: 1. Maintain the individual as the primary focus of care. 2. To improve the patient's quality of life. 3. Identification of cardiac risk factors and provide cardiac risk factor management. 4. Enhance the psychosocial status of the patient. 5. Reconditioning enough to allow the patient to resume customary activities. 6. Control symptoms of cardiac disease Scale for measuring improvement of personal goals: Enter appropriate number in Comments. 2 = Unchanged. 3 = Slightly Better. 4 = Moderate Improvement. 5 = Met my Goal Personal Goals: 30-day Re-assessment: Improve energy level, Participate in home exercise program, Get back to work, or to resume activities faster, Improve knowledge of cardiac disease, Improve muscle strength and endurance Exercise - 30-day Assessment - Visit Date of Eval: 10/01/17 Session #:: 2 - Stages of Change Stages of Change:: Action - Exercise Prescription Mode:: Treadmill, Biodyne, Airdyne, NuStep Frequency (x/week): 3 Duration:: 30 METs - Progression: 0.5-1 MET as tolerated: 3.1 Target Heart Rate:: 106-114 - Hypertension Resting Blood Pressure:: 118/60 Peak Exercise Blood Pressure:: 132/68 Medication Changes:: No - Intervention Home Exercise/Activity Goal:: Sitting Time <3 hrs/day - Education Goals:: Warm-up, RPE NIKHIL Scale, S/S, Safe Exercise, Self-Monitoring - Exercise Program Goals Exercise Program Goals: Aerobic Activity >30 min, B/P <140/90 Nutrition - 30-Day Assessment - Program Goals Nutrition Program Goals: LDL <70. Total Cholesterol <200. HDL >45. Triglycerides <150. HgbA1C <7%. BMI <25 - Visit Date of Eval: 10/01/17 - Stages of Change Stages of Change:: Action - Lipids Has the patient seen the dietitian?: No - Diabetes Diabetes:: No - Weight Management Weight:: 73.028 kg - Intervention Referral to dietitian:: No Referral to Diabetic Clinic:: No Will attend diet classes:: Yes - Education Attended class for:: Signs & symptoms of hypoglycemia, Signs & symptoms of hyperglycemia, Relate diabetes to coronary artery disease, Healthy eating Tobacco - Initial Assessment - Program Goals Tobacco Program Goals: Complete smoking cessation. Attend education classes. Improve Knowledge Test score - Learning Barriers Learning Barriers: Vision Tobacco - 30-Day Assessment - Program Goals Tobacco Program Goals: Complete smoking cessation. Attend education classes. Improve Knowledge Test score - Stage of Change Stages of Change:: Action - Learning Barriers Learning Barriers: Participates in education - Family Support Do you have family support?: Yes - Tobacco Use Tobacco Use: Non-smoker Do you use smokeless tobacco?: No - Intervention Smoking Cessation Referral:: No Individual Education/Counseling:: No Education Schedule Given:: Yes - Education Attended class for:: Tobacco triggers, Coronary artery disease, Risk factors, Sexuality, Medical compliance, Cardiac A&P, Angina signs & symptoms Psychosocial - 30-Day Assess - Target Goals Target Goals: Assess presence or absence of depression. Using a valid screening tool, maximizes coping skills. Positive support system - Stages of Change Stages of Change:: Action - Psychosocial Test Tool Used:: HANDS Depression Questionnaire - Intervention PS - Interventions: Yes Attend Stress Management Classes, Yes Uses Stress Management Skills, No Referral to Mental Health, No Referral to [facility] Case Management, No Referral to Physician - Education Attended classes for:: Coping techniques, Signs & symptoms of depression, Stress management, Relaxation techniques - Assistive Devices Assistive Devices:: None Fall Risk Assessed:: Yes Patient Health Questionnaire 30-Day Re-eval Assessment 1. Little interest or pleasure in doing things: Not at all 2. Feeling down, depressed, or hopeless: Several days 3. Trouble falling or staying asleep, or sleeping too much: More than half the days 4. Feeling tired or having little energy: Several days 5. Poor appetite or overeating: Not at all 6. Feeling bad about yourself -- or that you are a failure or have let yourself or your family down: Not at all 7. Trouble concentrating on things, such as reading the newspaper or watching television: Several days 8. Moving or speaking so slowly that other people could have noticed. Or the opposite - being so fidgety or restless that you have been moving around a lot more than usual: Several days 9. Thoughts that you would be better off , or of hurting yourself in some way: Not at all How difficult have these problems made it for you to do your work, take care of things at home, or get along with other people?: Not difficult at all Total Score: 6 Self-Efficacy 30-Day Re-eval Assessment We would like to know how confident you are in doing certain activities. Please select your confidence level for:: Select your confidence level for the following using the scale 1-10 where 1 is not at all confident and 10 is totally confident. Your score is the average of all 6 responses. Fatigue: How confident are you that you can keep the fatigue caused by your disease from interfering with the things you want to do? Select Number: 8 Physical Discomfort or Pain: How confident are you that you can keep the physical discomfort or pain of your disease from interfering with the things you want to do? Select Number: 9 Emotional Distress: How confident are you that you can keep the emotional distress caused by your disease from interfering with the things you want to do? Select Number: 10 Other Symptoms or Health Problems: How confident are you that you can keep other symptoms or health problems from interfering with the things you want to do? Select Number: 9 Different Tasks and Activities: How confident are you that you can do the different tasks and activities needed to manage your health condition so as to reduce your need to see a doctor? Select Number: 10 Medication: How confident are you that you can do things other than just taking medication to reduce how much your illness affects your everyday life? Select Number: 10 Total Score:: 9
[2017-10-01 11:37] VITALS: BP 118/60; BP 132/68
== END 2017-10-08 23:59 ==
LOC: CR 10:15
PROVIDERS: Family Provider Internal Medicine; PCP Internal Medicine; Visit Provider Internal Medicine Cardiovascular Disease
DX: I25.118 Atherosclerotic heart disease of native coronary artery with other forms of angina pectoris (principal); Z95.5 Presence of coronary angioplasty implant and graft
CPT/HCPCS: 93798

== ENCOUNTER 2017-10-26 10:15 | Outpatient (RCR) | payer MEDICARE, OTHER, SELFPAY ==
[2017-10-09 01:12] VITALS: BP 118/60; BP 132/68
[2017-10-31 08:53] VITALS: BP 118/60; BP 150/70
--- NOTE | 2017-10-31 08:54 | CR.ITP_ITS ---
Exercise - 60-Day Assessment - Visit Date of Eval: 10/31/17 Session #:: 12 - Stages of Change Stages of Change:: Contemplate - Exercise Prescription Mode:: Treadmill, Biodyne, Rower, Airdyne, NuStep, Arm Ergometer Frequency (x/week): 3 Duration:: 30 METs: 4.6 Target Heart Rate:: 106-114 Max HR 118 - Hypertension Resting Blood Pressure:: 118/60 Peak Exercise Blood Pressure:: 150/70 Medication Changes:: No - Intervention Home Exercise/Activity Goal:: Sitting Time <3 hrs/day - Education Goals:: Warm-up, RPE NIKHIL Scale, S/S, Safe Exercise, Self-Monitoring - Exercise Program Goals Exercise Program Goals: Aerobic Activity >30 min, B/P <130/80 Nutrition - 60-Day Assessment - Program Goals Nutrition Program Goals: LDL <70. Total Cholesterol <200. HDL >45. Triglycerides <150. HgbA1C <7%. BMI <25 - Visit Date of Eval: 10/31/17 - Stages of Change Stages of Change:: Contemplate - Lipids Has the patient seen the dietitian?: No - Diabetes Diabetes:: No - Weight Management Weight:: 72.348 kg - Intervention Referral to dietitian:: No Referral to Diabetic Clinic:: No Will attend diet classes:: Yes - Education Attended class for:: Signs & symptoms of hypoglycemia, Signs & symptoms of hyperglycemia, Relate diabetes to coronary artery disease, Healthy eating Tobacco - Initial Assessment - Program Goals Tobacco Program Goals: Complete smoking cessation. Attend education classes. Improve Knowledge Test score - Learning Barriers Learning Barriers: Vision Tobacco - 60-Day Assessment - Program Goals Tobacco Program Goals: Complete smoking cessation. Attend education classes. Improve Knowledge Test score - Stage of Change Stages of Change:: Contemplate - Learning Barriers Learning Barriers: Participates in education - Family Support Do you have family support?: Yes - Tobacco Use Tobacco Use: Non-smoker Do you use smokeless tobacco?: No - Intervention Smoking Cessation Referral:: No Individual Education/Counseling:: No Education Schedule Given:: Yes - Education Attended class for:: Tobacco triggers, Coronary artery disease, Risk factors, Sexuality, Medical compliance, Cardiac A&P, Angina signs & symptoms Psychosocial - Initial Assess - Target Goals Target Goals: Assess presence or absence of depression. Using a valid screening tool, maximizes coping skills. Positive support system - Psychosocial Test Tool Used:: HANDS Depression Questionnaire - Assistive Devices Fall Risk Assessed:: Yes Psychosocial - 60-Day Assess - Target Goals Target Goals: Assess presence or absence of depression. Using a valid screening tool, maximizes coping skills. Positive support system - Stages of Change Stages of Change:: Contemplate - Psychosocial Test Tool Used:: HANDS Depression Questionnaire - Intervention PS - Interventions: Yes Attend Stress Management Classes, Yes Uses Stress Management Skills, No Referral to Mental Health, No Referral to [facility] Case Management, No Referral to Physician - Education Attended classes for:: Coping techniques, Signs & symptoms of depression, Stress management, Relaxation techniques - Assistive Devices Assistive Devices:: None Fall Risk Assessed:: Yes Patient Health Questionnaire 60-Day Re-eval Assessment 1. Little interest or pleasure in doing things: Not at all 2. Feeling down, depressed, or hopeless: Not at all 3. Trouble falling or staying asleep, or sleeping too much: Not at all 4. Feeling tired or having little energy: Several days 5. Poor appetite or overeating: Not at all 6. Feeling bad about yourself -- or that you are a failure or have let yourself or your family down: Not at all 7. Trouble concentrating on things, such as reading the newspaper or watching television: Not at all 8. Moving or speaking so slowly that other people could have noticed. Or the opposite - being so fidgety or restless that you have been moving around a lot more than usual: Not at all 9. Thoughts that you would be better off , or of hurting yourself in some way: Not at all How difficult have these problems made it for you to do your work, take care of things at home, or get along with other people?: Not difficult at all Total Score: 1 Self-Efficacy 60-Day Re-eval Assessment We would like to know how confident you are in doing certain activities. Please select your confidence level for:: Select your confidence level for the following using the scale 1-10 where 1 is not at all confident and 10 is totally confident. Your score is the average of all 6 responses. Fatigue: How confident are you that you can keep the fatigue caused by your disease from interfering with the things you want to do? Select Number: 10 Physical Discomfort or Pain: How confident are you that you can keep the physical discomfort or pain of your disease from interfering with the things you want to do? Select Number: 10 Emotional Distress: How confident are you that you can keep the emotional distress caused by your disease from interfering with the things you want to do? Select Number: 10 Other Symptoms or Health Problems: How confident are you that you can keep other symptoms or health problems from interfering with the things you want to do? Select Number: 10 Different Tasks and Activities: How confident are you that you can do the different tasks and activities needed to manage your health condition so as to reduce your need to see a doctor? Select Number: 10 Medication: How confident are you that you can do things other than just taking medication to reduce how much your illness affects your everyday life? Select Number: 10 Total Score:: 10
== END 2017-11-08 23:59 ==
LOC: CR 10:15
PROVIDERS: Family Provider Internal Medicine; PCP Internal Medicine; Visit Provider Internal Medicine Cardiovascular Disease
DX: I25.118 Atherosclerotic heart disease of native coronary artery with other forms of angina pectoris (principal); I25.10 Atherosclerotic heart disease of native coronary artery without angina pectoris; Z95.5 Presence of coronary angioplasty implant and graft
CPT/HCPCS: 93798

== ENCOUNTER 2017-12-07 10:15 | Outpatient (RCR) | payer MEDICARE, OTHER, SELFPAY ==
[2017-11-09 00:59] VITALS: BP 118/60; BP 150/70
--- NOTE | 2017-11-30 13:30 | PCM.CR.ITP ---
Exercise - 90-Day Assessment - Visit Date of Eval: 11/30/17 - Stages of Change Stages of Change:: Action - Exercise Prescription Mode:: Treadmill, Biodyne, Rower, Airdyne, NuStep Frequency (x/week): 3 Duration:: 30 METs: 4.5 Target Heart Rate:: 106-114 - Hypertension Resting Blood Pressure:: 148/68 Peak Exercise Blood Pressure:: 148/68 Medication Changes:: No - Intervention Home Exercise/Activity Goal:: Moderate Exercise 30 min/day x 5 days/wk - Education Goals:: Warm-up, RPE NIKHIL Scale, S/S, Safe Exercise, Self-Monitoring - Exercise Program Goals Exercise Program Goals: Aerobic Activity >30 min Nutrition - 90-Day Assessment - Program Goals Nutrition Program Goals: LDL <70. Total Cholesterol <200. HDL >45. Triglycerides <150. HgbA1C <7%. BMI <25 - Visit Date of Eval: 11/30/17 - Stages of Change Stages of Change:: Action - Lipids Has the patient seen the dietitian?: No - Diabetes Diabetes:: No - Weight Management Weight:: 159 lb - Intervention Referral to dietitian:: No Will attend diet classes:: Yes - Education Attended class for:: Healthy eating Tobacco - Initial Assessment - Program Goals Tobacco Program Goals: Complete smoking cessation. Attend education classes. Improve Knowledge Test score - Learning Barriers Learning Barriers: Vision Tobacco - 90-Day Assessment - Program Goals Tobacco Program Goals: Complete smoking cessation. Attend education classes. Improve Knowledge Test score - Stage of Change Stages of Change:: Action - Learning Barriers Learning Barriers: Participates in education - Family Support Do you have family support?: Yes - Tobacco Use Tobacco Use: Non-smoker - Intervention Education Schedule Given:: Yes - Education Attended class for:: Coronary artery disease, Risk factors, Sexuality, Medical compliance, Cardiac A&P, Angina signs & symptoms Psychosocial - 90-Day Assess - Target Goals Target Goals: Assess presence or absence of depression. Using a valid screening tool, maximizes coping skills. Positive support system - Stages of Change Stages of Change:: Action - Psychosocial Test Tool Used:: HANDS Depression Questionnaire - Intervention PS - Interventions: Yes Attend Stress Management Classes, Yes Uses Stress Management Skills, No Referral to Mental Health, No Referral to [facility] Case Management, No Referral to Physician - Education Attended classes for:: Coping techniques, Signs & symptoms of depression, Stress management, Relaxation techniques - Patient/Program Goal Preventative Medication(s):: Aspirin, DEIRDRE inhibitor, Clopidogrel, Beta raj, Statin/lipid - Assistive Devices Assistive Devices:: None Fall Risk Assessed:: Yes Patient Health Questionnaire 90-Day Re-eval Assessment 1. Little interest or pleasure in doing things: Not at all 2. Feeling down, depressed, or hopeless: Not at all 3. Trouble falling or staying asleep, or sleeping too much: Not at all 4. Feeling tired or having little energy: Not at all 5. Poor appetite or overeating: Not at all 6. Feeling bad about yourself -- or that you are a failure or have let yourself or your family down: Not at all 7. Trouble concentrating on things, such as reading the newspaper or watching television: Not at all 8. Moving or speaking so slowly that other people could have noticed. Or the opposite - being so fidgety or restless that you have been moving around a lot more than usual: Not at all 9. Thoughts that you would be better off , or of hurting yourself in some way: Not at all How difficult have these problems made it for you to do your work, take care of things at home, or get along with other people?: Not difficult at all Total Score: 0 Self-Efficacy 90-Day Re-eval Assessment We would like to know how confident you are in doing certain activities. Please select your confidence level for:: Select your confidence level for the following using the scale 1-10 where 1 is not at all confident and 10 is totally confident. Your score is the average of all 6 responses. Fatigue: How confident are you that you can keep the fatigue caused by your disease from interfering with the things you want to do? Select Number: 9 Physical Discomfort or Pain: How confident are you that you can keep the physical discomfort or pain of your disease from interfering with the things you want to do? Select Number: 10 Emotional Distress: How confident are you that you can keep the emotional distress caused by your disease from interfering with the things you want to do? Select Number: 10 Other Symptoms or Health Problems: How confident are you that you can keep other symptoms or health problems from interfering with the things you want to do? Select Number: 10 Different Tasks and Activities: How confident are you that you can do the different tasks and activities needed to manage your health condition so as to reduce your need to see a doctor? Select Number: 10 Medication: How confident are you that you can do things other than just taking medication to reduce how much your illness affects your everyday life? Select Number: 10 Total Score:: 9
[2017-11-30 13:35] VITALS: BP 148/68
== END 2017-12-08 23:59 ==
LOC: CR 10:15
PROVIDERS: Family Provider Internal Medicine; PCP Internal Medicine; Visit Provider Internal Medicine Cardiovascular Disease
DX: I25.118 Atherosclerotic heart disease of native coronary artery with other forms of angina pectoris (principal); Z95.5 Presence of coronary angioplasty implant and graft
CPT/HCPCS: 93798

== ENCOUNTER 2018-01-07 10:15 | Outpatient (RCR) | payer MEDICARE, OTHER, SELFPAY ==
[2017-12-09 00:50] VITALS: BP 148/68
--- NOTE | 2018-01-02 13:46 | PCM.CR.ITP ---
Exercise - Final/Discharge - Visit Date of Eval: 01/02/18 Session #:: 32 - Stages of Change Stages of Change:: Action - Exercise Prescription Mode:: Treadmill, Rower, Airdyne Frequency (x/week): 3 Duration:: 30 METs: 5.5 Target Heart Rate:: 106-114 - Hypertension Do any of the following apply?: Yes Resting Blood Pressure:: 108/50 Peak Exercise Blood Pressure:: 146/60 - Intervention Home Exercise/Activity Goal:: Moderate Exercise 30 min/day x 5 days/wk - Education Goal Progress: Goal Met - Exercise Program Goals Exercise Program Goals: Aerobic Activity >30 min Nutrition - Final Assessment - Program Goals Nutrition Program Goals: LDL <70. Total Cholesterol <200. HDL >45. Triglycerides <150. HgbA1C <7%. BMI <25 - Visit Date of Eval: 01/02/18 - Stages of Change Stages of Change:: Action - Diabetes Diabetes:: No - Weight Management Height: 5 ft 2.6 in Weight:: 159 lb 8 oz Body Fat %:: 28 - Intervention Referral to dietitian:: No Referral to Diabetic Clinic:: No Will attend diet classes:: Yes - Education Education Goal Reached?: Yes Tobacco - Initial Assessment - Program Goals Tobacco Program Goals: Complete smoking cessation. Attend education classes. Improve Knowledge Test score - Learning Barriers Learning Barriers: Vision Tobacco - Final Assessment - Program Goals Tobacco Program Goals: Complete smoking cessation. Attend education classes. Improve Knowledge Test score - Stage of Change Stages of Change:: Action - Family Support Do you have family support?: Yes - Tobacco Use Tobacco Use: Non-smoker Do you use smokeless tobacco?: No - Intervention Smoking Cessation Referral:: No Individual Education/Counseling:: No Education Schedule Given:: Yes - Education Education Goal Reached?: Yes Psychosocial - Initial Assess - Target Goals Target Goals: Assess presence or absence of depression. Using a valid screening tool, maximizes coping skills. Positive support system - Psychosocial Test Tool Used:: HANDS Depression Questionnaire - Assistive Devices Fall Risk Assessed:: Yes Psychosocial - Final Assessmen - Target Goals Target Goals: Assess presence or absence of depression. Using a valid screening tool, maximizes coping skills. Positive support system - Stages of Change Stages of Change:: Action - Psychosocial Test Tool Used:: HANDS Depression Questionnaire - Intervention PS - Interventions: Yes Attend Stress Management Classes, Yes Uses Stress Management Skills, No Referral to Mental Health, No Referral to [facility] Case Management, No Referral to Physician - Education Education Goal Reached?: Yes - Patient/Program Goal Preventative Medication(s):: Clopidogrel, Beta raj, Statin/lipid - Assistive Devices Assistive Devices:: None Fall Risk Assessed:: Yes Patient Health Questionnaire Discharge Assessment 1. Little interest or pleasure in doing things: Not at all 2. Feeling down, depressed, or hopeless: Not at all 3. Trouble falling or staying asleep, or sleeping too much: Not at all 4. Feeling tired or having little energy: Not at all 5. Poor appetite or overeating: Not at all 6. Feeling bad about yourself -- or that you are a failure or have let yourself or your family down: Not at all 7. Trouble concentrating on things, such as reading the newspaper or watching television: Not at all 8. Moving or speaking so slowly that other people could have noticed. Or the opposite - being so fidgety or restless that you have been moving around a lot more than usual: Not at all 9. Thoughts that you would be better off , or of hurting yourself in some way: Not at all Total Score: 0 YASMANI-Q SV Test - Statements CAD is a disease of the arteries in the heart: False Examples of risk factors for heart disease: True Angina is chest pain or discomfort: True The benefits of resistance training include: True Eating more meat and dairy products: False Anti-platelet medications such as aspirin are important: True The only effective way to manage stress: False An exercise warm-up slowly increases heart rate: True Prepared, processed foods usually have high sodium: True Depression is common after a heart attack: True The statin medications lower cholesterol: True To control blood pressure, lower the amount of sodium: True If someone gets chest discomfort during walking: True Transfats are partially hydrogenated vegetable oils: False Sleep apnea that is not treated increases the risk: True To control cholesterol, one should become a vegetarian: False Someone knows if he/she is exercising at the right level: True Diabetes cannot be prevented with exercise & health eating: False Stress is a large risk for heart attack: True A diet that can help lower blood pressure is rich in: True - Total Score Total Correct Responses: 17 Self-Efficacy Discharge Assessment We would like to know how confident you are in doing certain activities. Please select your confidence level for:: Select your confidence level for the following using the scale 1-10 where 1 is not at all confident and 10 is totally confident. Your score is the average of all 6 responses. Fatigue: How confident are you that you can keep the fatigue caused by your disease from interfering with the things you want to do? Select Number: 9 Physical Discomfort or Pain: How confident are you that you can keep the physical discomfort or pain of your disease from interfering with the things you want to do? Select Number: 9 Emotional Distress: How confident are you that you can keep the emotional distress caused by your disease from interfering with the things you want to do? Select Number: 9 Other Symptoms or Health Problems: How confident are you that you can keep other symptoms or health problems from interfering with the things you want to do? Select Number: 9 Different Tasks and Activities: How confident are you that you can do the different tasks and activities needed to manage your health condition so as to reduce your need to see a doctor? Select Number: 9 Medication: How confident are you that you can do things other than just taking medication to reduce how much your illness affects your everyday life? Select Number: 9 Total Score:: 9 Nutrition Survey - Nutrition Survey Instructions Scoring Instructions: Scoring is as follows: Yes = 1 points. No = 0 point. Patient score that is >/=12 is considered to be at potential nutritional risk and could benefit from a referral to a registered dietitian. - Nutrition Survey Discharge Have you lost >10 lbs over the past 2 months without trying?: No Are you following a special diet at home for diabetes, low fat, or low salt?: No Are you interested in meeting with a dietitian for help understanding your diet?: No Do you eat less than 3 meals a day?: No Do you eat fatty meats (kumari, sausage, ribs, etc), fried foods, desserts, large amounts of salad dressings, margarine, butter, or cheese most days?: No Do you have food allergies? [Enter types in comment field]: No Do you eat in restaurants more than 3 times a week?: No Do you season food with salt, seasoning salt, or garlic salt?: No Do you used canned, boxed, frozen meals, or soups, seasoning packets?: No Total Score:: 0
[2018-01-02 13:52] VITALS: BP 108/50; BP 146/60
== END 2018-01-08 23:59 ==
LOC: CR 10:15
PROVIDERS: Family Provider Internal Medicine; PCP Internal Medicine; Visit Provider Internal Medicine Cardiovascular Disease
DX: I25.118 Atherosclerotic heart disease of native coronary artery with other forms of angina pectoris (principal); Z95.5 Presence of coronary angioplasty implant and graft
CPT/HCPCS: 93798

== ENCOUNTER 2018-01-09 06:49 | Outpatient (RCR) | payer MEDICARE, OTHER, SELFPAY ==
[2018-01-09 00:50] VITALS: BP 108/50; BP 146/60
== END 2018-02-08 23:59 ==
LOC: CR 06:49
PROVIDERS: Family Provider Internal Medicine; PCP Internal Medicine; Visit Provider Internal Medicine Cardiovascular Disease
DX: I25.118 Atherosclerotic heart disease of native coronary artery with other forms of angina pectoris (principal); Z95.5 Presence of coronary angioplasty implant and graft
CPT/HCPCS: 93798

== ENCOUNTER → 2018-04-30 09:04 | Outpatient (CLI) | payer MEDICARE, OTHER, SELFPAY ==
--- NOTE | 2018-04-30 09:14 | VDLE_ITS ---
Reason For Study: Pain RIGHT LEFT CFV is compressible, spontaneous, phasic, CFV is compressible, spontaneous, phasic, competent and demonstrates normal competent, and demonstrates normal augmentation. augmentation. FV is compressible, spontaneous, phasic, FV is compressible, spontaneous, phasic, competent and demonstrates normal competent and demonstrates normal augmentation. augmentation. POP V is compressible, spontaneous, phasic, POP V is compressible, spontaneous, phasic, competent and demonstrates normal competent and demonstrates normal augmentation. augmentation. T/P Trunk is compressible. T/P Trunk is compressible. PTV is compressible. PTV is compressible. RT PerV is compressible. LT PerV is compressible. SFJ is competent. SFJ is INCOMPETENT for greater than 0.5 GSV is INCOMPETENT throughout for greater seconds. than 0.5 seconds and measures 0.23 x 0.25 cm. GSV above knee is INCOMPETENT for greater SSV is competent. than 0.5 seconds and measures 0.24 x 0.23 cm. Procedure GSV below knee is competent. Exam performed in department. SSV is competent. <> Interpretation Summary Deep veins of the lower extremities are bilaterally patent and compressible segmentally. There is no evidence of deep vein thrombosis on either side. Valvular competence appears intact within the proximal deep venous systems bilaterally. The greater saphenous veins appear bilaterally patent and compressible segmentally. The right sapheno-femoral junction is competent . The left sapheno-femoral junction is incompetent . The right greater saphenous vein appears segmentally incompetent. The left greater saphenous vein appears incompetent above the knee. The left greater saphenous vein appears competent below the knee. Small saphenous veins are patent and competent bilaterally. Ordering Physician: Ray Moreira Referring Physician: Mamie Mendez Performed By: Aureliano Zuñiga RVT and Student
--- NOTE | 2018-05-10 15:30 | LEAS_ITS ---
Arterial Study - Arterial Study Arterial Study: This is a 77-year-old female with history of coronary artery disease and symptoms suggesting intermittent claudication secondary to arterial occlusive disease. The patient was brought to the noninvasive vascular laboratory at this time for the purpose of bilateral noninvasive lower extremity arterial assessment. Doppler signal assessment was used to evaluate the pulses at ankle level bilaterally. The posterior tibial and dorsalis pedis pulses were triphasic bilaterally. Segmental limb pressures were obtained at ankle level bilaterally. The right ankle pressure, as determined by posterior tibial pulse, was measured at 187 mmHg. The right ankle pressure, as determined by dorsalis pedis pulse, was measured at 176 mmHg. The left ankle pressure, as determined by posterior tibial pulse, was measured at 179 mmHg. The left ankle pressure, as determined by dorsalis pedis pulse, was measured at 170 mmHg. Pulse?volume recordings were obtained bilaterally and segmentally. Waveform amplitudes appeared to be satisfactory at low thigh, calf, and ankle levels bi laterally. Waveform amplitudes appeared to be somewhat diminished at digital level on the left. Resting ankle?brachial indices were calculated bilaterally. The resting right ankle?brachial index was calculated to be 1.04. The resting left ankle?brachial index was calculated to be 1.00. The patient was then exercised on a treadmill for 4 minutes at 1.5 mph and a 5% grade. The patient experienced bilateral leg tiredness and mild shortness of breath. Ankle pressures were obtained at intervals following cessation of exercise. 1 minute following cessation of exercise, the right ankle pressure was measured at 184 mmHg, and the left ankle pressure was measured at 178 mmHg. 3 minutes following cessation of exercise, the right ankle pressure was measured at 175 mmHg, and the left ankle pressure was measured at 171 mmHg. 5 minutes following cessation of exercise, the right ankle pressure was measured at 177 mmHg, and the left ankle pressure was measured at 187 mmHg. 7 minutes following cessation of exercise, the right ankle pressure was measured at 191 mmHg. Impression: Based upon the findings of this resting and exercise noninvasive lower extremity arterial study, there is no evidence of significant peripheral arterial occlusive disease in the lower extremities bilaterally. Triphasic waveforms are noted at ankle level bilaterally. Resting ankle?brachial indices are bilaterally normal. Following a period of exercise, ankle pressures remain relatively unchanged. There is no specific evidence of an occlusive process in the arterial tree of either lower extremity.
== END ==
PROVIDERS: Family Provider Internal Medicine; PCP Internal Medicine; Referring Provider Surgery; Visit Provider Surgery
DX: M79.89 Other specified soft tissue disorders (principal); I73.9 Peripheral vascular disease, unspecified; M79.606 Pain in leg, unspecified; I87.2 Venous insufficiency (chronic) (peripheral); I83.10 Varicose veins of unspecified lower extremity with inflammation
CPT/HCPCS: 93924; 93970

== ENCOUNTER → 2018-08-19 06:41 | Outpatient (CLI) | payer MEDICARE, OTHER, SELFPAY ==
[2018-06-21 14:40] VITALS: BMI 29.9
[2018-08-19 08:28] LABS: AST(SGOT) 20 U/L (15-37); Alanine Aminotransfer ALT/SGPT 24 U/L (13-56); Albumin, Serum 3.6 g/dL (3.2-5.0); Alkaline Phosphatase 98 U/L (45-117); Cholesterol 175 mg/dL (200); Globulin 3.2 g/dL (2.2-4.2); High Density Lipoprotein 35 mg/dL; Protein, Total 6.8 g/dL (6.4-8.2); Triglycerides 197 mg/dL; Very Low Density Lipoprotein 39 mg/dL (5-40)
== END ==
PROVIDERS: Family Provider Internal Medicine; PCP Internal Medicine; Referring Provider Internal Medicine Cardiovascular Disease; Visit Provider Internal Medicine Cardiovascular Disease
DX: E78.00 Pure hypercholesterolemia, unspecified (principal); I10 Essential (primary) hypertension; I25.10 Atherosclerotic heart disease of native coronary artery without angina pectoris; I25.118 Atherosclerotic heart disease of native coronary artery with other forms of angina pectoris; I73.9 Peripheral vascular disease, unspecified; I77.9 Disorder of arteries and arterioles, unspecified; Z95.5 Presence of coronary angioplasty implant and graft
CPT/HCPCS: 36415; 80061; 80076

== ENCOUNTER → 2018-09-27 | Outpatient (CLI) | payer MEDICARE, OTHER, SELFPAY ==
[2018-06-21 14:40] VITALS: BMI 29.9
--- NOTE | 2018-09-27 08:01 | CDU_ITS ---
Reason For Study: Carotid Stenosis Rt. Velocities/BP Lt. Velocities/BP Prox CCA 67/11 cm/sec. Prox CCA 95/20 cm/sec. Mid CCA 70/12 cm/sec. Mid CCA 92/20 cm/sec. Dist CCA 60/11 cm/sec. Dist CCA 133/21 cm/sec. Prox ICA 56/13 cm/sec. Prox ICA 207/27 cm/sec. Mid ICA 119/26 cm/sec. Mid ICA 142/21 cm/sec. Dist ICA 91/19 cm/sec. Dist ICA 122/32 cm/sec. Rt. ICA/CCA = 1.7. Lt. ICA/CCA = 2.25. Prox ECA 69/4 cm/sec. Prox ECA 134/7 cm/sec. Rt. Vert. 71/9 cm/sec. Lt. Vert. 47/13 cm/sec. Right Extracranial There is intimal thickening but no significant atherosclerotic plaque noted in the right common carotid artery. There is intimal thickening but no significant atherosclerotic plaque noted in the right internal carotid artery. The right internal carotid artery is very tortuous. There is intimal thickening but no significant atherosclerotic plaque noted in the right external carotid artery. Antegrade flow is noted in the right vertebral artery. Left Extracranial There is heterogeneous, irregular atherosclerotic plaque noted in the left common carotid artery. There is heterogeneous, irregular atherosclerotic plaque noted in the left internal carotid artery. The left internal carotid artery is very tortuous. There is heterogeneous, irregular atherosclerotic plaque noted in the left external carotid artery. Antegrade flow is noted in the left vertebral artery. Procedure Carotid Duplex [id number]. Exam performed in department. Interpretation Summary No significant plague or the right internal or external carotids with <50% stenosis of each. Tortuous right internal carotid Irregular calcific plague at the proximal left internal and external carotids. 50-69% stenosis left internal carotid with tortuosity <50% stenosis left external carotid Patent and antegrade vertebrals bilaterallly No change from 08/01/12 (At that time the study should have read 50-69% left ICA stenosis) Ordering Physician: Enrique Roach Referring Physician: Mamie Mnedez Performed By: Galilea Ballard, MIKHAIL, RVT
--- NOTE | 2018-09-27 08:01 | ECHOD_ITS ---
Reason For Study: CAD/ASHD Procedure This was a 2D Doppler, Color Flow transthoracic echocardiogram. Contrast injection was performed. Exam performed in department. Left Ventricle Normal LV size. Left ventricular systolic function is normal. The estimated ejection fraction is 65 %. Stage 2 diastolic dysfunction. No regional wall motion abnormalities noted. Right Ventricle Normal RV size. Normal systolic function. Atria Normal left atrium. Normal right atrium. Mitral Valve Mild focal mitral valve calcification of the posterior leaflet. Mild (1+) eccentric mitral valve insufficiency. Tricuspid Valve Normal tricuspid valve. Mild tricuspid valve insufficiency. Pulmonary artery systolic pressure is 34 mmHg. Aortic Valve Trisinus/trileaflet aortic valve. Mild (1+) aortic valve insufficiency. Pulmonic Valve Normal pulmonic valve. Great Vessels Normal aortic root. The pulmonary artery is normal size. Normal inferior vena cava. Pericardium/Pleural No pericardial effusion. Medication 20 gauge I.V. with prn adaptor inserted into left arm. Performed a rapid injection of agitated mix of 9 cc saline and 1cc air to assess for atrial septal defect. MMode/2D Measurements & Calculations LVIDd: 4.6 cm IVSd: 1.6 cm Ao root diam: 3.5 cm LVIDs: 2.3 cm LVPWd: 0.90 cm LA dimension: 4.1 cm RVDd: 3.4 cm FS: 49.3 % LAV(MOD-bp): 51.3 ml LA A4 area: 19.0 cm2 RA A4 area: 13.1 cm2 LAV(MOD-bp) Indexed: 29.9 ml/m2 LAV(MOD-sp2): 46.8 ml LAV(MOD-sp4): 56.7 ml Time Measurements MV dec time: 0.21 sec Doppler Measurements & Calculations MV E max gamaliel: 72.1 cm/sec Lat Peak E' Gamaliel: 5.8 cm/sec Med Peak E' Gamaliel: 4.7 cm/sec MV A max gamaliel: 86.8 cm/sec E/E' lat: 12.4 E/E' med: 15.3 MV E/A: 0.83 MV V2 max: 114.6 cm/sec MV P1/2t max gamaliel: 79.0 cm/sec Ao V2 max: 114.7 cm/sec MV max P.3 mmHg MV P1/2t: 72.1 msec Ao max P.3 mmHg MV V2 mean: 58.0 cm/sec MV dec slope: 320.9 cm/sec2 MV mean P.6 mmHg MV V2 VTI: 27.6 cm MVA(P1/2t): 3.1 cm2 AI max gamaliel: 347.3 cm/sec LV V1 max: 78.5 cm/sec MR max gamaliel: 658.1 cm/sec AI max P.2 mmHg LV V1 max P.5 mmHg MR max P.2 mmHg AI dec slope: 115.3 cm/sec2 MR mean gamaliel: 492.8 cm/sec AI P1/2t: 882.2 msec MR mean P.2 mmHg MR VTI: 241.3 cm PA V2 max: 79.9 cm/sec PI end-d gamaliel: 90.5 cm/sec TR max gamaliel: 268.4 cm/sec TR max P.8 mmHg Interpretation Summary Normal LV size. Left ventricular systolic function is normal. The estimated ejection fraction is 65 %. Stage 2 diastolic dysfunction. Mild (1+) eccentric mitral valve insufficiency. Mild tricuspid valve insufficiency. Mild (1+) aortic valve insufficiency. Compared to previous study, the left ventricular systolic function is the same.. Ordering Physician: Enrique Roach Referring Physician: Enrique Roach Performed By: Matthieu Horvath RCS
== END | disposition home or self-care (01) ==
LOC: CVS 07:56
PROVIDERS: Family Provider Internal Medicine; PCP Internal Medicine; Referring Provider Internal Medicine Cardiovascular Disease; Visit Provider Internal Medicine Cardiovascular Disease
DX: I25.118 Atherosclerotic heart disease of native coronary artery with other forms of angina pectoris (principal); R09.89 Other specified symptoms and signs involving the circulatory and respiratory systems; I73.9 Peripheral vascular disease, unspecified; I77.9 Disorder of arteries and arterioles, unspecified; E78.00 Pure hypercholesterolemia, unspecified; I10 Essential (primary) hypertension; Z95.5 Presence of coronary angioplasty implant and graft
CPT/HCPCS: 93306; 93880; A4216

== ENCOUNTER → 2019-01-08 | Outpatient (CLI) | payer MEDICARE, OTHER, SELFPAY ==
[2018-12-20 08:35] VITALS: BMI 28.9
--- NOTE | 2019-01-08 23:00 | STRESSREP ---
Stress Test Report Exercise myocardial perfusion stress test. 78-year-old lady with a history of coronary artery disease. Medications: Aspirin, clopidogrel, levothyroxine. Stress protocol: Resting EKG demonstrates normal sinus rhythm with a rate of 69 bpm normal intervals are noted resting blood pressures 160/88 mmHg. The patient exercised according to regular Luis A protocol for total duration of 5 minutes and 30 seconds the maximum heart rate attained was 122 bpm which was 86% maximum predicted heart rate the maximum workload was 7 metabolic equivalents. The patient maintained sinus rhythm throughout the recording at rest and during peak exercise there were nonspecific ST-T wave changes noted no clinical angina was noted. Myocardial perfusion protocol per 11.8 mCi of video game repair technician 98 sestamibi was injected at rest. Patient exercised for 5-1/2 minutes. At peak exercise 33.1 mCi of technetium 99m sestamibi was injected stress images were obtained stress and rest images are reconstructed and compared to the short axis vertical long horizontal long axis. Gated images were also obtained Perfusion SPECT analysis: Review of the stress images demonstrate normal uptake of tracer noted in all areas of the myocardium the resting images similar demonstrate normal uptake of tracer noted in all areas of the myocardium. No areas of reversibility are noted suggest ischemia. Gated SPECT analysis: The gated ejection fraction is noted to be 71%. Conclusion: Normal exercise myocardial perfusion stress test at a moderate workload. Preserved ejection fraction. No angina noted. Good functional capacity.
== END | disposition home or self-care (01) ==
LOC: CVS 07:11
PROVIDERS: Family Provider Internal Medicine; PCP Internal Medicine; Referring Provider Nurse Practitioner Family; Visit Provider Nurse Practitioner Family
DX: I25.118 Atherosclerotic heart disease of native coronary artery with other forms of angina pectoris (principal); R06.02 Shortness of breath; Z95.5 Presence of coronary angioplasty implant and graft
CPT/HCPCS: 78452; 93017; A9500; A4216

== ENCOUNTER 2019-05-21 17:18 | Observation (INO) | payer MEDICARE, OTHER, SELFPAY ==
[2018-12-20 08:35] VITALS: BMI 28.9
[2019-05-21 17:18] VITALS: BP 173/79; PULSE 69; RESP 14; TEMP 36.7; O2SAT 97; BMI 28.9
--- NOTE | 2019-05-21 17:23 | EKG12_ITS ---
Test Reason : AM EKG Blood Pressure : / mmHG Vent. Rate : 080 BPM Atrial Rate : 080 BPM P-R Int : 154 ms QRS Dur : 074 ms QT Int : 410 ms P-R-T Axes : 054 027 059 degrees QTc Int : 472 ms Sinus rhythm with Premature atrial complexes Otherwise normal ECG Confirmed by BRYCE BLACK, STEFANIE ([id number]), managing editor IBAN CANO ([id number]) on 05/28/2019 1:13:10 PM Referred By: Kassie Bartlett Confirmed By:STEFANIE WU MD
--- NOTE | 2019-05-21 17:24 | ED.DCSUM_ITS ---
History of Present Illness Chief Complaint: Chest Pain Informant: Patient Onset: Today Context: Sudden Onset Timing: Continuous Current Severity: Moderate Maximum Severity: Moderate Narrative: The patient is a 78-year-old female with medical history significant for coronary vascular disease with 5 stents, most recently in 2018 presents to the emergency department with chest pressure. Patient states she was in her normal state of health. She lives with her and they were shopping for microwaves. She states she began to have some tightness in her chest into her back. She states he also felt that her arms were heavy. She took 1 nitro which did not change the pain. She took a second which did improve it. She states she has been under significant amount of stress lately. Her sister is currently in hospice care. Her fymtoex-pd-gcd recently . She feels like stress may be contributing to her symptoms. She is on Plavix and has been compl iant with it. Prior similar symptoms: Yes Recent Illness/Hospitalization: No Past Medical History - Allergies and Home Meds Allergies/Adverse Reactions: Allergies DEIRDRE Inhibitors Allergy (Verified 05/21/19 17:21) Unknown ARB-Angiotensin Receptor Antagonist Allergy (Verified 05/21/19 17:21) Unknown atorvastatin calcium [From Lipitor] Allergy (Verified 05/21/19 17:21) Unknown pravastatin [From Pravachol] Allergy (Verified 05/21/19 17:21) Unknown Primary Care Physician: Mamie Mendez MD [Primary Care Provider] - Prior records reviewed: Yes Past Medical History: - - Coronary vascular disease, hypertension, hyperlipidemia Surgical History: appendectomy, tonsillectomy Smoking Status: Never smoker Review of Systems General: Denies: Chills, Fever, Sweats Eyes: Denies: Visual changes - bilaterally, Diplopia ENT: Denies: Rhinorrhea, Sore throat Cardiovascular: Reports: Chest pain. Denies: Palpitations Respiratory: Reports: Dyspnea. Denies: Cough, Dyspnea on exertion Gastrointestinal: Denies: Abdominal pain, Nausea, Vomiting, Diarrhea, Melena, Hematochezia Genitourinary: Denies: Dysuria, Hematuria, Frequency Musculoskeletal: Denies: Back pain, Extremity Pain Skin: Denies: Rash, Wounds Neurological: Denies: Headache, Weakness, Numbness Physical Exam Vital Signs/Narrative: Vital Signs Temp Pulse Resp BP Pulse Ox 05/21/19 17:18 98.1 F 69 14 173/79 H 97 Inital Vital Signs reviewed: Yes General: Well nourished, Well developed, No Acute Distress Head: Normocephalic, Atraumatic Eyes: Perrl, EOMI ENT: Moist mucous membranes, No rhinorrhea Neck: Supple, Nontender Cardiovascular: Regular rate, Regular rhythm, No murmurs Respiratory: No distress, CTA bilaterally, Chest nontender Abdomen: Soft, Nontender, Nondistended, Normal bowel sounds Back: Nontender, Normal Inspection Extremities: Nontender, No edema Skin: Normal color, No rash Neurological: Alert, Oriented x3, Cranial nerves II-XII grossly intact, Normal Strength, Normal Sensation Psychological: Normal affect, Normal Mood Diagnostic/Tx/Re-eval Clinical Impression(s) from Imaging Studies Chest X-Ray 05/21/19 17:35 IMPRESSION: No acute cardiopulmonary findings. Negative for consolidation, focal atelectasis, pleural effusion or cardiomegaly. Electronically Signed: Madelin Bishop MD at 17:51 EST , Service support , Abnormal Lab Results 05/21/19 05/21/19 05/21/19 17:57 17:57 17:57 WBC 6.7 RBC 4.28 Hgb 12.4 Hct 36.2 L MCV 84.6 MCH 29.0 MCHC 34.3 RDW Std Deviation 39.0 RDW Coeff of Taylor 12.7 Plt Count 217 MPV 10.8 Immature Gran % (Auto) 0.100 Neut % (Auto) 55.3 Lymph % (Auto) 32.1 Craig % (Auto) 8.8 Eos % (Auto) 3.1 Baso % (Auto) 0.6 Absolute Neuts (auto) 3.7 Absolute Lymphs (auto) 2.15 Nucleated RBC % 0 PT 13.3 INR 1.0 APTT 27.5 Sodium 143 Potassium 3.7 Chloride 110 H Carbon Dioxide 25.0 Anion Gap 8 BUN 18 Creatinine 1.21 H Estim Creat Clear Calc 27.08 Est GFR (MDRD) Af Amer 55 L Est GFR (MDRD) Non-Af 46 L BUN/Creatinine Ratio 14.9 Glucose 105 Calcium 8.4 L Troponin I < 0.015 - Rhythm Strip Rhythm Strip: Sinus Rhythm Rate: 80 Ectopy: None - EKG Initial EKG Interpretation: Sinus Rhythm, No Acute Injury Pattern, Non-Specific ST Changes Prior: Unchanged - Medical Decision Making The patient presents to the emergency department with chest pain. She does have a significant history of coronary vascular disease. I had already spoken with Dr. MOTT prior to the patient's arrival. By the time the patient had arrived here, she was pain-free. Chest pain work-up was pursued. Her EKG does not show acute ischemia. Chest x-ray was unremarkable for acute process. Cardiac enzymes were normal. After discussion with cardiology, the patient will be admitted to observation. She will be covered with Lovenox for cardiac rule out. Impression 1. Chest pain with history of coronary vascular disease ED Disposition - Plan for ED Patient: Referrals: Mamie Mendez MD [Primary Care Provider] -
--- NOTE | 2019-05-21 17:35 | RAD_ITS ---
STUDY: X-RAY CHEST REASON FOR EXAM: Female, 78 years old. Chest pain TECHNIQUE: 1 view COMPARISON: Prior chest radiograph from July 06, 2017 FINDINGS: The lungs are clear and expanded. There is no demonstrated pleural abnormality. Normal size heart. Normal mediastinum and eric. Normal visualized pulmonary arteries. There is atherosclerotic calcification of the aortic arch with tortuosity. There are diffuse degenerative changes of the visualized thoracic spine. Old healed left humeral neck fracture deformity. There is no demonstrated abnormality of the visualized soft tissue structures of the upper abdomen. RAD/Chest 1 View (Portable) IMPRESSION: No acute cardiopulmonary findings. Negative for consolidation, focal atelectasis, pleural effusion or cardiomegaly. Electronically Signed: Madelin Bishop MD at 17:51 EST , Service support ,
[2019-05-21 18:03] LABS: Absolute Lymphocyte Count 2.15 X10^3/uL (0.83-4.51); Absolute Neutrophil Count 3.7 X10^3/uL (2.0-7.7); Basophil# 0.04 X10^3/uL; Basophil% 0.6 % (0-1); Eosinophil# 0.21 X10^3/uL; Eosinophils% 3.1 % (0-5); Hematocrit 36.2 % (37-47); Hemoglobin 12.4 g/dL (12.0-15.0); Lymphocyte # 2.15 X10^3/ul (4.0); Lymphocyte % 32.1 % (19-41); Mean Corp Hgb Conc 34.3 g/dL (32-36); Mean Corpuscular Volume 84.6 fL (81-99); Mean Platelet Vol. 10.8 fl (6.2-12.0); Monocyte# 0.59 X10^3/uL; Monocyte% 8.8 % (0-10); NRBC Flagged by Analyzer 0 % (0-5); Neutrophil # 3.69 X10^3/uL (2.7-7.7); Neutrophil % 55.3 % (47-70); Platelet Count 217 K/mm3 (150-450); RBC Distribution Width CV 12.7 % (11.6-14.6); Red Blood Count 4.28 M/mm3 (4.2-5.4); White Blood Count 6.7 K/mm3 (4.4-11.0)
[2019-05-21] MEDS: Aspirin 81 MG TAB.CHEW 324 MG PO (18:06)
[2019-05-21 18:11] LABS: Partial Thromboplast Time 27.5 Seconds (24.1-36.2); Prothrombin Time (Protime)PT. 13.3 SECONDS (11.7-14.9)
[2019-05-21 18:29] LABS: Anion Gap 8 (5-15); BUN 18 mg/dL (7-18); BUN/Creat Ratio 14.9 RATIO (10-20); Calcium,Total 8.4 mg/dL (8.5-10.1); Chloride 110 mmol/L (98-107); Creatinine, Serum 1.21 mg/dL (0.55-1.02); EST Glomerular Filtration Rate 46 mL/min (>60); Est Glom Filt Rate - Afr Amer 55 mL/min (>60); Estimated Creatinine Clearance 27.08 ml/min; Glucose 105 mg/dL (74-106); Potassium 3.7 mmol/L (3.5-5.1); Sodium Level 143 mmol/L (136-145)
--- NOTE | 2019-05-21 18:49 | PCM.HP.STD ---
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 Ortez @ [facility]; PTCA and TAMMY to mid LAD 09/26/[address] Chilel at [facility]; Cutting Balloon and TAMMY to Ostial RCA 08/12/2013 @ [facility] per Dr. Godinez History of Present Illness Date of Admission: 05/21/19 Chief Complaint: Chest pain - 1 day The patient is a 78 year old F with PMHx of CAD s/p stents, hypertension, hyperlipidemia was admitted with chest pain that started on the day of admission. Patient was in her usual state of health when she started to have severe back anton that radiated to her anterior chest, associated with nausea and diaphoresis. She went to see her palliative senior np who advised her to come to the ED. Her chest pain seemed abated after 2 doses of nitro. She denied any dizziness or palpitations. Her vitals included temp 98.1F, HR 69, BP 173/79, RR 14, spo2 97% on RA. Her admitting blood work was remarkable for Cr 1.25, baseline of <1 about 1 year ago. Her EKG showed NSR. no acute ST-T changes. 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 Ortez @ [facility]; PTCA and TAMMY to mid LAD 09/26/[address] Chilel at [facility]; Cutting Balloon and TAMMY to Ostial RCA 08/12/2013 @ [facility] per Dr. Godinez Intermittent claudication (Chronic) Carotid artery disease (Chronic) Atherosclerotic heart disease of inupiat coronary artery with other forms of angina pectoris (Chronic) PCI-TAMMY to ISR Mid LAD using Resolute Integrity 2.5 x 12 mm 08/13/2017 PTCA and TAMMY to RCA 03/09/[address] Ortez @ [facility]; PTCA and TAMMY to mid LAD 09/26/[address] Chilel at [facility]; Cutting Balloon and TAMMY to Ostial RCA 08/12/2013 @ [facility] per Dr. 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 Ortez @ [facility]; PTCA and TAMMY to mid LAD 09/26/[address] Chilel at [facility]; Cutting Balloon and TAMMY to Ostial RCA 08/12/2013 @ [facility] per Dr. Godinez Intermittent claudication (Chronic) I73.9 Carotid artery disease (Chronic) I77.9 Atherosclerotic heart disease of inupiat coronary artery with other forms of angina pectoris (Chronic) I25.118 PCI-TAMMY to ISR Mid LAD using Resolute Integrity 2.5 x 12 mm 08/13/2017 PTCA and TAMMY to RCA 03/09/[address] Ortez @ [facility]; PTCA and TAMMY to mid LAD 09/26/[address] Chilel at [facility]; Cutting Balloon and TAMMY to Ostial RCA 08/12/2013 @ [facility] per Dr. Godinez Allergies DEIRDRE Inhibitors Allergy (Verified 05/21/19 17:21) Unknown ARB-Angiotensin Receptor Antagonist Allergy (Verified 05/21/19 17:21) Unknown atorvastatin calcium [From Lipitor] Allergy (Verified 05/21/19 17:21) Unknown pravastatin [From Pravachol] Allergy (Verified 05/21/19 17:21) Unknown Home Medications: Ambulatory Orders Medication Instructions Recorded Aspirin E.C. [Ecotrin] 81 mg PO DAILY@0800 tab 08/14/17 multivit with 1 tab PO DAILY 04/11/18 ujowkocr-uduf-VB-lutein 8 mg iron-400 mcg-300 mcg tablet clopidogrel 75 mg tablet 75 mg PO DAILY #90 tab 06/21/18 metoprolol tartrate 50 mg tablet 50 mg PO BID #180 tab 06/21/18 ezetimibe 10 mg tablet 10 mg PO DAILY #90 tab 10/14/18 nitroglycerin 0.4 mg sublingual 0.4 mg SUBLINGUAL Q5M PRN #25 tab 04/30/19 tablet Calcium (Elemental) [Os-Marvin 500] 500 mg PO BIDCM 05/21/19 Cholecalciferol (VIT D3) [Vitamin 1,000 unit PO DAILY 05/21/19 D] Colestipol Tablet [Colestid Tablet] 1 gm PO BID 05/21/19 Levothyroxine Sodium [Synthroid] 75 mcg PO DAILY 05/21/19 Surgical History: Surgical History (Last Updated 06/26/18 @ 17:10 by Amy Cunningham) History of coronary artery stent placement (Resolved) Onset Date: 05/22/18 Z95.5 [facility] PCI-TAMMY to ISR Mid LAD using Resolute Integrity 2.5 x 12 mm 08/13/2017; PTCA and TAMMY to RCA 03/09/[address] Ortez @ [facility]; PTCA and TAMMY to mid LAD 09/26/[address] Chilel at [facility]; Cutting Balloon and TAMMY to Ostial RCA 08/12/2013 @ [facility] per Dr. 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 Lives: Spouse/ Significant Other Smoking Status: Never smoker Tobacco Use: Non-smoker Alcohol: None Drugs: None - *Family History Maternal Family History: Family History (Last Reviewed 06/21/18 @ 15:11 by Enrique Roach MD) Mother CAD (coronary artery disease) Grandmother CAD (coronary artery disease) History Items: Heart Disease Paternal Family History: Family History (Last Reviewed 06/21/18 @ 15:11 by Enrique Roach MD) Mother CAD (coronary artery disease) Grandmother CAD (coronary artery disease) History Items: Unknown Review of Systems Constitutional: Denies: Anorexia, Chills, Fever, Malaise, Weakness, Weight Change Eyes: Denies: Blurred vision, Drainage, Eyelid Inflammation, Vision Change HEENT: Denies: Difficulty Hearing, Difficulty Swallowing, Head Aches, Hearing Changes, Nasal bleeding, Sinus Congestion, Sinus Drainage Cardiovascular: Reports: Chest Tightness. Denies: Claudication, Palpitations, Syncope Respiratory: Denies: Cough, Hemoptysis, Shortness of breath at rest, Shortness of breath upon exertion, Sputum production Gastrointestinal: Denies: Abdominal Pain, Hematemesis, Hematochezia, Nausea, Vomiting Genitourinary: Denies: Dysuria, Frequency, Incontinence Musculoskeletal: Denies: Joint Pain, Joint Tenderness Skin: Denies: Pruritis, Rash, Wounds Neurological: Denies: Difficulty swallowing, Focal weakness, Numbness, Tingling Psychiatric: Denies: Anxiety, Depression, Homicidal Ideations, Suicidal Ideations Hematologic/ Lymphatic: Denies: Easy Bruising, Easy Bleeding VTE Information - Inpt Only VTE Present on Admission: No VTE Pharm Prophylaxis ordered?: Yes - Physical Exam Vitals/I&O's: Vital Signs Temp Pulse Resp BP Pulse Ox 98.1 F 69 14 173/79 H 97 05/21/19 17:18 05/21/19 17:18 05/21/19 17:18 05/21/19 17:18 05/21/19 17:18 Oxygen Delivery Method Room Air Weight: 67.177 kg Body Mass Index (BMI) 28.9 General: Alert, Oriented x3, Cooperative, No apparent distress HEENT: Atraumatic, PERRLA, EOMI, Normocephalic Oral: Moist Mucosa Neck: Supple Lungs: Clear to auscultation, Normal air movement Cardiovascular: Regular rate, Regular Rhythm, Normal S1, Normal S2, No murmurs Abdomen: Bowel Sounds Present, Soft, Non Tender, Non-Distended, No Hepato-splenomegaly Extremities: No edema, Capillary Refill Less than 3 Seconds Skin: No rashes Musculoskeletal: No Tenderness to Palpation of Joints or Extremities Lymphatic: No Cervical, Supraclavicular, or Inguinal Adenopathy Neurological: Cranial nerves II-XII grossly intact, Neuro grossly intact Psych/Mental Status: Normal Affect, Appropriate Laboratory Results 05/21/19 17:57: WBC 6.7, RBC 4.28, Hgb 12.4, Hct 36.2 L, MCV 84.6, MCH 29.0, MCHC 34.3, RDW Std Deviation 39.0, RDW Coeff of Taylor 12.7, Plt Count 217, MPV 10.8, Immature Gran % (Auto) 0.100, Neut % (Auto) 55.3, Lymph % (Auto) 32.1, [place] % (Auto) 8.8, Eos % (Auto) 3.1, Baso % (Auto) 0.6, Absolute Neuts (auto) 3.7, Absolute Lymphs (auto) 2.15, Nucleated RBC % 0 05/21/19 17:57: PT 13.3, INR 1.0, APTT 27.5 05/21/19 17:57: Sodium 143, Potassium 3.7, Chloride 110 H, Carbon Dioxide 25.0, Anion Gap 8, BUN 18, Creatinine 1.21 H, Estim Creat Clear Calc 27.08, Est GFR (MDRD) Af Amer 55 L, Est GFR (MDRD) Non-Af 46 L, BUN/Creatinine Ratio 14.9, Glucose 105, Calcium 8.4 L, Troponin I < 0.015 Current Medications Nitroglycerin (Nitrostat) 0.4 mg SUBLINGUAL Q5M PRN PRN Reason: Chest pain Assessment/Plan All Active Problems (Last Updated 06/26/18 @ 17:10 by Amy Cunningham) History of coronary artery stent placement (Resolved 05/22/18) 78 year old F with PMHx of CAD s/p stents, hypertension, hyperlipidemia was admitted with chest pain that started on the day of admission. 1. Chest pain, atypical, suggestive of angina, in a pt with CAD s/p 5 stents, troponins are negative, EKG showed no acute ST-T changes Admit to PCU, trend troponins, cardiology consulted from ED - possible cardiac cath in am, given Lovenox 70mg x1 in ED Continue beta-raj, statin, aspirin, plavix 2. Probakle VINCENT vs CKD stage 3, unclear what her Cr has been over the last 1 year Will trend labs 3. Hypertension, continue on betablocker 4. Hyperlipidemia, continue on statin 5. Hypothyroidism, on synthroid 6. DVT PPx- already received 1 dose of Lovenox Code Visit OBSV E&M: [id number] Initial observation care L2
[2019-05-21 19:25] VITALS: BP 180/77; PULSE 64; PULSE 764; RESP 14; RESP 17; O2SAT 100
[2019-05-21] MEDS: Enoxaparin 80 MG/0.8 ML Syringe 70 MG SC (19:29)
--- NOTE | 2019-05-21 20:07 | EKG12_ITS ---
Test Reason : CP Blood Pressure : / mmHG Vent. Rate : 067 BPM Atrial Rate : 067 BPM P-R Int : 144 ms QRS Dur : 072 ms QT Int : 398 ms P-R-T Axes : 050 042 055 degrees QTc Int : 420 ms Normal sinus rhythm Nonspecific T wave abnormality Abnormal ECG Confirmed by GALI BLACK, YAW ([id number]), publishing editor IBAN CANO ([id number]) on 05/28/2019 11:32:19 AM Referred By: Kassie Bartlett Confirmed By:REINA TALBERT MD
[2019-05-21 20:08] VITALS: BMI 29.4
[2019-05-21 20:28] VITALS: BP 166/69; PULSE 69; RESP 16; TEMP 36.8; O2SAT 97
[2019-05-21 20:51] VITALS: PULSE 74
[2019-05-21 21:47] LABS: AST(SGOT) 24 U/L (15-37); Alanine Aminotransfer ALT/SGPT 25 U/L (13-56); Albumin, Serum 3.5 g/dL (3.2-5.0); Alkaline Phosphatase 95 U/L (45-117); Globulin 3.3 g/dL (2.2-4.2); Protein, Total 6.8 g/dL (6.4-8.2)
[2019-05-21 22:14] VITALS: PULSE 74
[2019-05-21] MEDS: Metoprolol Tartrate 50 MG Tablet PO (22:14)
[2019-05-21 22:20] VITALS: BP 136/66; PULSE 74; RESP 18; TEMP 36.6; O2SAT 98
[2019-05-22] VITALS (32 sets, daily range): BP systolic 99–206; BP diastolic 46–85; PULSE 55–92; RESP 13–25; TEMP 36.8–37; O2SAT 95–100
[2019-05-22] MEDS: Aspirin E.C. 81 MG Tablet PO (05:02)
[2019-05-22] MEDS: Levothyroxine 75 MCG Tablet PO (05:02)
[2019-05-22] MEDS: Clopidogrel Bisulfate 75 MG Tablet PO (05:02)
[2019-05-22] MEDS: 0.9% Saline Lock 10 ML Syringe IV ×2 (05:04→11:49)
--- NOTE | 2019-05-22 05:15 | EKG12_ITS ---
Test Reason : POST PCI Blood Pressure : / mmHG Vent. Rate : 056 BPM Atrial Rate : 056 BPM P-R Int : 154 ms QRS Dur : 082 ms QT Int : 428 ms P-R-T Axes : 044 012 047 degrees QTc Int : 413 ms Sinus bradycardia Low voltage QRS (Limb Leads) Confirmed by BRYCE BLACK, STEFANIE ([id number]), marketing editor IBAN CANO ([id number]) on 05/28/2019 1:15:11 PM Referred By: Kassie Bartlett Confirmed By:STEFANIE WU MD
[2019-05-22 07:01] LABS: Absolute Lymphocyte Count 1.98 X10^3/uL (0.83-4.51); Absolute Neutrophil Count 2.8 X10^3/uL (2.0-7.7); Basophil# 0.04 X10^3/uL; Basophil% 0.7 % (0-1); Eosinophil# 0.24 X10^3/uL; Eosinophils% 4.3 % (0-5); Hematocrit 37.5 % (37-47); Hemoglobin 12.8 g/dL (12.0-15.0); Lymphocyte # 1.98 X10^3/ul (4.0); Lymphocyte % 35.7 % (19-41); Mean Corp Hgb Conc 34.1 g/dL (32-36); Mean Corpuscular Hgb 28.8 pg (27.0-32.0); Mean Corpuscular Volume 84.3 fL (81-99); Mean Platelet Vol. 10.6 fl (6.2-12.0); Monocyte# 0.46 X10^3/uL; Monocyte% 8.3 % (0-10); NRBC Flagged by Analyzer 0 % (0-5); Neutrophil # 2.82 X10^3/uL (2.7-7.7); Neutrophil % 50.8 % (47-70); Platelet Count 205 K/mm3 (150-450); RBC Distribution Width CV 12.4 % (11.6-14.6); RBC Distribution Width SD 37.2 fl (35.1-43.9); Red Blood Count 4.45 M/mm3 (4.2-5.4); White Blood Count 5.6 K/mm3 (4.4-11.0)
[2019-05-22 07:12] LABS: Anion Gap 6 (5-15); BUN 18 mg/dL (7-18); BUN/Creat Ratio 14.4 RATIO (10-20); Calcium,Total 8.8 mg/dL (8.5-10.1); Chloride 110 mmol/L (98-107); Creatinine, Serum 1.25 mg/dL (0.55-1.02); EST Glomerular Filtration Rate 44 mL/min (>60); Est Glom Filt Rate - Afr Amer 53 mL/min (>60); Estimated Creatinine Clearance 28.86 ml/min; Glucose 86 mg/dL (74-106); Sodium Level 142 mmol/L (136-145)
--- NOTE | 2019-05-22 08:12 | NURSING ---
Report called to Jose LAURENT in hospital laboratory technician.
[2019-05-22] MEDS: Metoprolol Tartrate 50 MG Tablet PO ×2 (08:18→22:24)
--- NOTE | 2019-05-22 08:47 | CON.PCM_ITS ---
Reason for Consult Date of Consultation: 05/22/19 Reason for Consultation: Chest pain History of Present Illness: [] LISETTE ENAMORADO, is a 78 F who presents to the office yesterday as a walk-in and was sent to the emergency room. She had complained of going shopping and was noted to develop back discomfort as well as chest discomfort. She has a history of coronary artery disease status post previous angioplasty and stenting to a nondominant right coronary artery as well as angioplasty and stenting to the left anterior descending artery. She also has mild to moderate occlusive peripheral vascular disease, hypertension, and hyperlipidemia. She had presented in August 2017 with chest discomfort and was admitted to the hospital and underwent a cardiac catheterization which demonstrated high-grade 99% in- stent stenosis of the previously placed LAD stent. She underwent repeat angioplasty and stenting with a 2.5?12 mm resolute integrity stent. The right coronary artery was left untouched and showed 80% in-stent restenosis. Past Medical History Allergies/Adverse Reactions: Allergies DEIRDRE Inhibitors Allergy (Verified 05/21/19 17:21) Unknown ARB-Angiotensin Receptor Antagonist Allergy (Verified 05/21/19 17:21) Unknown atorvastatin calcium [From Lipitor] Allergy (Verified 05/21/19 17:21) Unknown pravastatin [From Pravachol] Allergy (Verified 05/21/19 17:21) Unknown Home Medications: Ambulatory Orders Medication Instructions Recorded Aspirin E.C. [Ecotrin] 81 mg PO DAILY@0800 tab 08/14/17 multivit with 1 tab PO DAILY 04/11/18 mkgklvjn-mfzn-CE-lutein 8 mg iron-400 mcg-300 mcg tablet clopidogrel 75 mg tablet 75 mg PO DAILY #90 tab 06/21/18 metoprolol tartrate 50 mg tablet 50 mg PO BID #180 tab 06/21/18 ezetimibe 10 mg tablet 10 mg PO DAILY #90 tab 10/14/18 nitroglycerin 0.4 mg sublingual 0.4 mg SUBLINGUAL Q5M PRN #25 tab 04/30/19 tablet Calcium (Elemental) [Os-Marvin 500] 500 mg PO BIDCM 05/21/19 Cholecalciferol (VIT D3) [Vitamin 1,000 unit PO DAILY 05/21/19 D] Colestipol Tablet [Colestid Tablet] 1 gm PO BID 05/21/19 Levothyroxine Sodium [Synthroid] 75 mcg PO DAILY 05/21/19 Past Medical History (Chronic Problems): Chronic Problems (Last Updated 06/26/18 @ 17:10 by Amy Cunningham) Essential (primary) hypertension (Chronic) Pure hypercholesterolemia (Chronic) Atherosclerosis of mentasta coronary artery of mentasta heart without angina pectoris (Chronic) PCI-TAMMY-ISR Prox RCA 3.0 x 12 mm Elunir 05/22/18 PCI-TAMMY to ISR Mid LAD using Resolute Integrity 2.5 x 12 mm 08/13/2017; PTCA a nd TAMMY to RCA 03/09/[address] Ortez @ [facility]; PTCA and TAMMY to mid LAD 09/26/[address] Chiell at [facility]; Cutting Balloon and TAMMY to Ostial RCA 08/12/2013 @ [facility] per Dr. Godinez Intermittent claudication (Chronic) Carotid artery disease (Chronic) Atherosclerotic heart disease of mentasta coronary artery with other forms of angina pectoris (Chronic) PCI-TAMMY to ISR Mid LAD using Resolute Integrity 2.5 x 12 mm 08/13/2017 PTCA and TAMMY to RCA 03/09/[address] Ortez @ [facility]; PTCA and TAMMY to mid LAD 09/26/[address] Chilel at [facility]; Cutting Balloon and TAMMY to Ostial RCA 08/12/2013 @ [facility] per Dr. 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 ANALYST history - *Family History Maternal Family History: Family History (Last Reviewed 06/21/18 @ 15:11 by Enrique Roach MD) Mother CAD (coronary artery disease) Grandmother CAD (coronary artery disease) History Items: Heart Disease Paternal Family History: Family History (Last Reviewed 06/21/18 @ 15:11 by Enrique Roach MD) Mother CAD (coronary artery disease) Grandmother CAD (coronary artery disease) History Items: Unknown Lives: Spouse/ Significant Other Smoking Status: Never smoker Tobacco Use: Non-smoker Alcohol: None Drugs: None Review of Systems - Review of Systems General: Denies: Fever, Night Sweats, Fatigue HEENT: Denies: Vision Change Cardiovascular: Reports: Chest Discomfort, Chest Discomfort with Exertion. Denies: Shortness of Breath, Orthopnea, PND, Peripheral Edema, Palpitations, Lightheadedness, Dizziness, Near Syncope, Syncope Respiratory: Denies: Cough, Sputum Production, Hemoptysis Gastrointestinal: Denies: Hematemesis, Hematochezia, Melena Genitourinary: Denies: Dysuria, Hematuria Muscoloskeletal: Denies: Myalgias Skin: Denies: Rash Neurological: Denies: Dizziness Psychiatric: Denies: Anxiety Endocrine: Denies: Unexplained Weight Loss Subjectve: Pleasant lady in no apparent distress Objective: Vital Signs Temp Pulse Resp BP Pulse Ox 98.5 F 68 18 164/79 H 99 05/22/19 05:00 05/22/19 08:18 05/22/19 05:00 05/22/19 08:16 05/22/19 05:00 Oxygen Delivery Method Room Air Weight: 160 lb 11.472 oz Body Mass Index (BMI) 29.4 Intake and Output for Last 24 Hours 05/20/19 05/21/19 05/22/19 23:59 23:59 23:59 Intake Total 220 / 220 Balance 220 / 220 General: Awake, Alert, Oriented x 3 HEENT: PERRL, EOMI, Sclera Non Icteric Neck: Supple, Good ROM, No Lymph Node Enlargement Lungs: Clear to auscultation Cardiovascular: Regular Rhythm, Normal S1, Normal S2, No Murmurs, No Rubs, No Gallops Vascular: No Carotid Bruits, Normal Femoral Pulses, Normal Radial Pulses, Normal Dorsalis Pedal Pulse, Normal Posterior Tibial Pulses Abdomen: Bowel Sounds Present, Soft, Non Tender, No HSM, No Organomegaly Extremities: No Cyanosis, No Clubbing, No edema Musculoskeletal: No Erythema Skin: No Rashes Lymphatic: No Lymph Node Enlargement Neurological: No Focal Motor or Sensory Deficit Psych/Mental Status: Appropriate 05/21/19 17:57: WBC 6.7, RBC 4.28, Hgb 12.4, Hct 36.2 L, MCV 84.6, MCH 29.0, MCHC 34.3, Plt Count 217, MPV 10.8, Immature Gran % (Auto) 0.100, Neut % (Auto) 55.3, Lymph % (Auto) 32.1, [place] % (Auto) 8.8, Eos % (Auto) 3.1, Baso % (Auto) 0.6, Absolute Neuts (auto) 3.7, Nucleated RBC % 0 05/21/19 17:57: PT 13.3, INR 1.0, APTT 27.5 05/21/19 17:57: Sodium 143, Potassium 3.7, Chloride 110 H, Carbon Dioxide 25.0, Anion Gap 8, BUN 18, Creatinine 1.21 H, Est GFR (MDRD) Af Amer 55 L, Est GFR (MDRD) Non-Af 46 L, BUN/Creatinine Ratio 14.9, Glucose 105, Calcium 8.4 L, Troponin I < 0.015 05/21/19 20:45: Troponin I < 0.015 05/21/19 20:45: Total Bilirubin 0.20, Direct Bilirubin 0.10 05/22/19 00:02: Troponin I < 0.015 05/22/19 06:30: WBC 5.6, RBC 4.45, Hgb 12.8, Hct 37.5, MCV 84.3, MCH 28.8, MCHC 34.1, Plt Count 205, MPV 10.6, Immature Gran % (Auto) 0.200, Neut % (Auto) 50.8, Lymph % (Auto) 35.7, [place] % (Auto) 8.3, Eos % (Auto) 4.3, Baso % (Auto) 0.7, Absolute Neuts (auto) 2.8, Nucleated RBC % 0 05/22/19 06:30: Sodium 142, Potassium 4.0, Chloride 110 H, Carbon Dioxide 26.0, Anion Gap 6, BUN 18, Creatinine 1.25 H, Est GFR (MDRD) Af Amer 53 L, Est GFR (MDRD) Non-Af 44 L, BUN/Creatinine Ratio 14.4, Glucose 86, Calcium 8.8 Rhythm: EKG: ECHO: Stress Test: Cardiac Cath: PCI: CT Surgery: Holter monitor: EPS: PPM: CXR: Chest CT Scan: Assessment/Plan 1. Recent onset angina * Patient presents with recent onset angina suggestive of previous coronary artery disease. My recommendation at this time would be to consider her for repeat cardiac catheterization with a view to possible angioplasty. Depending on the findings further recommendations will be made. * She has had a previous drug-eluting stent to in-stent stenosis of the mid left anterior descending artery using a resolute integrity 2.5 x 12 mm, previous angioplasty using a cutting balloon to the ostial right coronary artery. Most recently in May 2018 she underwent a 3.0 x 12 mm 11-year drug-eluting stent in [place]. * 2. Essential (primary) hypertension I10 Patient's blood pressure is well-controlled. We will continue to monitor. We will not make any medication regimen changes. 3. Pure hypercholesterolemia E78.00 Lipid panel from August 2018 showed cholesterol: 175, HDL: 35, LDL: 101, and triglyceride: 197. She will continue current cholesterol-lowering medications. We will continue to monitor. 4. Bilateral carotid artery stenosis I65.23 Her carotid duplex ultrasound from September 2018 showed no changes as compared to July 2012. She will continue with current medications and we will continue to monitor. Thank you for allowing me to participate in the care of your patient. Please don't hesitate to call if any issues arise
--- NOTE | 2019-05-22 09:40 | CL.D_ITS ---
Patient Name: LISETTE ENAMORADO Study Date: 05/22/2019 Performing: Enrique Roach MD Ht: 61.81 inches 157 cm : 1940 Wt: 160.94 lbs 73 kg Age: 78 Gender: female BSA: 1.74 PROCEDURE(S) PERFORMED TS74-[facility] CLINICAL PROFILE AND INDICATIONS Indications: Worsening Angina Heart Failure: None Stress/Imaging Stress/Image Study Performed: No CAD Presentations: Unstable angina. CONCLUSIONS Severe in-stent stenosis in the previously placed stent in the left anterior descending artery RECOMMENDATIONS Referred for immediate PCI DESCRIPTION OF PROCEDURE The patient arrived to the procedure lab. The risks and benefits of the procedure as well as a full d escription of our services here and current unavailability of surgical backup were fully explained to the patient and/or their significant other prior to the catheterization. The Timeout was completed, verifying the correct patient and procedure. The patient's procedural site was prepped and draped in the usual fashion. Local anesthetic was given subcutaneously to right radial region with Lidocaine 2% . Local anesthetic was given subcutaneously to right groin region with Lidocaine 2%. Using a modified Seldinger technique, arterial access was obtained via the right radial artery, a 6Fr sheath was inse rted. Right Coronary Artery selective angiography was then performed in multiple views using a 5 Fr. 4.0 Ivanhoe catheter. Left Coronary Artery selective angiography was performed in multiple views using a 5 Fr. 4.0 [place] catheter. CORONARY ANGIOGRAPHY DOMINANCE: Left Dominant LEFT HEART ASSESSMENT Left Ventricular Ejection Fraction: Not assessed LEFT MAIN: Mild calcification, Angiographically normal LEFT ANTERIOR DESCENDING ARTERY: MID LAD: Previously placed stent has an instent 90 % restenosis CIRCUMFLEX ARTERY: Mild luminal irregularities RIGHT CORONARY ARTERY: OSTIAL RCA: Previously placed stent is patent COMPLICATIONS PROCEDURE MEDICATIONS Versed 1 mg IV Fentanyl 50 mcg IV Versed 1 mg IV Versed 1 mg IV Oxygen: 2 L/min via nasal cannula Heparin diluted in 23cc Heparinized saline. Patient given 10cc IA of this solution. 05/22/2019 09:16 :40 Heparin 5000 unit(s) IV 05/22/2019 09:35:09 Verapamil 2.5mg, Ntg 100mcgs, 2000 units of Heparin diluted in 23cc Heparinized saline. Patient give n 10cc IA of this solution. 05/22/2019 09:16:40 SUMMARY OF HEMODYNAMIC DATA Time AIR REST ECG 08:37:51 AO 152/73 (105) SA 09:21:04 LV 169/-3, 14 09:25:37 LV 175/0, 18 09:25:44 LVp 192/0, 19 09:26:03 AOp 175/0 (50) 09:26:09 Signed By Enrique Roach MD On 05/22/2019 09:39:48 Enrique Roach MD
--- NOTE | 2019-05-22 09:57 | NURSING ---
Report given to POULTRY KILLERSamm.
[2019-05-22] MEDS: 0.9% Normal Saline 1,000 ML 80 ML IV (10:30)
[2019-05-22] MEDS: TICAGRELOR 90 MG TABLET 180 MG PO (11:48)
[2019-05-22] MEDS: amLODIPine 5 MG Tablet PO (11:48)
[2019-05-22] MEDS: hydrALAZINE 20 MG/ML Vial 10 MG IV (11:49)
--- NOTE | 2019-05-22 12:56 | PN_ITS ---
<Daniel Bauer - Last Filed: 05/22/19 12:56> Reason for Visit: Chest pain Subjective: Patient seen and examined post heart cath, stenting this morning. Currently no chest pain heaviness or tightness, no shortness of breath, no lightheadedness or dizziness, no lower extremity edema. No nausea or vomiting. Post-cath blood pressure is markedly elevated however is trending down. Patient has no blurred vision or headache. Vitals/I&O's: Vital Signs Temp Pulse Resp BP Pulse Ox 98.4 F 70 13 168/64 H 100 05/22/19 12:00 05/22/19 12:30 05/22/19 12:30 05/22/19 12:30 05/22/19 12:30 Oxygen Delivery Method Room Air Weight: 160 lb 11.472 oz Body Mass Index (BMI) 29.4 Intake and Output for Last 24 Hours 05/20/19 05/21/19 05/22/19 23:59 23:59 23:59 Intake Total 220 / 220 Balance 220 / 220 General: Alert, Oriented x3, Cooperative HEENT: Atraumatic, PERRLA, EOMI, Normocephalic Neck: Supple, No JVD, Negative Carotid Bruits Lungs: Clear to auscultation, Normal air movement Cardiovascular: Regular rate, No murmurs Abdomen: Bowel Sounds Present, Soft, Non Tender Extremities: No edema, Capillary Refill Less than 3 Seconds Skin: No rashes, No breakdown Musculoskeletal: No Tenderness to Palpation of Joints or Extremities Neurological: Cranial nerves II-XII grossly intact Psych/Mental Status: Normal Affect, Appropriate, Alert and oriented to time, place, person, mood and affect Laboratory Results 05/21/19 17:57: WBC 6.7, RBC 4.28, Hgb 12.4, Hct 36.2 L, MCV 84.6, MCH 29.0, MCHC 34.3, RDW Std Deviation 39.0, RDW Coeff of Taylor 12.7, Plt Count 217, MPV 10.8, Immature Gran % (Auto) 0.100, Neut % (Auto) 55.3, Lymph % (Auto) 32.1, Kimball % (Auto) 8.8, Eos % (Auto) 3.1, Baso % (Auto) 0.6, Absolute Neuts (auto) 3.7, Absolute Lymphs (auto) 2.15, Nucleated RBC % 0 05/21/19 17:57: PT 13.3, INR 1.0, APTT 27.5 05/21/19 17:57: Sodium 143, Potassium 3.7, Chloride 110 H, Carbon Dioxide 25.0, Anion Gap 8, BUN 18, Creatinine 1.21 H, Estim Creat Clear Calc 27.08, Est GFR (MDRD) Af Amer 55 L, Est GFR (MDRD) Non-Af 46 L, BUN/Creatinine Ratio 14.9, Glucose 105, Calcium 8.4 L, Troponin I < 0.015 05/21/19 20:45: Troponin I < 0.015 05/21/19 20:45: Total Bilirubin 0.20, Direct Bilirubin 0.10, AST 24, ALT 25, Alkaline Phosphatase 95, Total Protein 6.8, Albumin 3.5, Globulin 3.3 05/22/19 00:02: Troponin I < 0.015 05/22/19 06:30: WBC 5.6, RBC 4.45, Hgb 12.8, Hct 37.5, MCV 84.3, MCH 28.8, MCHC 34.1, RDW Std Deviation 37.2, RDW Coeff of Taylor 12.4, Plt Count 205, MPV 10.6, Immature Gran % (Auto) 0.200, Neut % (Auto) 50.8, Lymph % (Auto) 35.7, Kimball % (Auto) 8.3, Eos % (Auto) 4.3, Baso % (Auto) 0.7, Absolute Neuts (auto) 2.8, Absolute Lymphs (auto) 1.98, Nucleated RBC % 0 05/22/19 06:30: Sodium 142, Potassium 4.0, Chloride 110 H, Carbon Dioxide 26.0, Anion Gap 6, BUN 18, Creatinine 1.25 H, Estim Creat Clear Calc 28.86, Est GFR (MDRD) Af Amer 53 L, Est GFR (MDRD) Non-Af 44 L, BUN/Creatinine Ratio 14.4, Glucose 86, Calcium 8.8 Current Medications Amlodipine Besylate (Norvasc) 5 mg PO DAILY [facility] Aspirin (Ecotrin) 81 mg PO DAILY@0800 [facility] Last Admin: 05/22/19 05:02 Dose: 81 mg Documented by: Atropine Sulfate () 0.5 mg IV UD PRN PRN Reason: HR <50 bpm [facility] ([facility]Marvin [facility] Cholecalciferol (Vitamin D) 1,000 unit PO DAILY [facility] Colestipol HCl (Colestid Tablet) 1 gm PO BID [facility] Ezetimibe (Zetia) 10 mg PO DAILY [facility] Heparin Sodium (Beef Lung) (Heparin 500 Unit/5 Ml (100/Ml)) 500 unit IV UD PRN PRN Reason: HEPARIN FLUSH Hydralazine HCl (Apresoline Iv) 10 mg IV Q4H PRN PRN PRN Reason: SBP>180 Last Admin: 05/22/19 11:49 Dose: 10 mg Documented by: Sodium Chloride () 250 mls @ 15 mls/hr IV .[id number] PRN PRN Reason: Saline Flush Sodium Chloride () 1,000 mls @ 80 mls/hr IV .[id number] [facility] Stop: 05/22/19 16:34 Labetalol HCl (Trandate) 5 mg IV X1 PRN PRN Reason: SBP > 160 when pulling sheath Levothyroxine Sodium (Synthroid) 75 mcg PO DAILY@0600 [facility] Last Admin: 05/22/19 05:02 Dose: 75 mcg Documented by: Metoprolol Tartrate (Lopressor (Beta Samantha)) 50 mg PO BID [facility] Last Admin: 05/22/19 08:18 Dose: 50 mg Documented by: Nitroglycerin (Nitrostat) 0.4 mg SUBLINGUAL Q5M PRN PRN Reason: Chest pain Sodium Chloride () 10 - 40 ml IV UD PRN PRN Reason: SALINE FLUSH Last Admin: 05/22/19 11:49 Dose: 10 ml Documented by: Sodium Chloride () 500 ml IV BOLUS PRN PRN Reason: VASO-VAGAL PROTOCOL Ticagrelor (Brilinta) 90 mg PO BID [facility] STROKE Vital Signs/Narrative: Vital Signs Temp Pulse Resp BP Pulse Ox 05/22/19 12:30 70 13 168/64 H 100 05/22/19 12:15 67 14 145/80 H 100 05/22/19 12:00 98.4 F 64 16 123/75 H 100 05/22/19 11:49 61 190/74 H 05/22/19 11:45 57 L 14 190/74 H 99 05/22/19 11:30 58 L 15 160/85 H 97 05/22/19 11:15 55 L 14 179/80 H 98 05/22/19 11:00 59 L 14 194/70 H 100 05/22/19 10:45 60 17 206/70 H 97 05/22/19 10:30 58 L 16 173/73 H 100 Medical Necessity - Tobacco Use Smoking Status: Never smoker Tobacco Use: Non-smoker Assessment/Plan All Active Problems (Last Updated 06/26/18 @ 17:10 by Amy Cunningham) History of coronary artery stent placement (Resolved 05/22/18) 1. Chest pain 2/2 CAD - stent placed this AM. Doing well. No complaints. Continue brillinta, aspirin, metoprolol. statin and dank/arb allergic. 2. HTN - improved following IV hydralazine. Defer further adjustment to card iology 3. HLD - statin allergic - on zetia, colestipol. 4. hypothyroidism - synthroid 5. Suspected CKDIII - trend. baseline unclear. This patient was seen by Daniel Bauer PA-C under the supervision of Doctor Reji. <Edu Mendoza - Last Filed: 05/22/19 15:08> Vitals/I&O's: Vital Signs Temp Pulse Resp BP Pulse Ox 36.9 C 84 25 H 163/59 H 100 05/22/19 12:00 05/22/19 14:00 05/22/19 14:00 05/22/19 14:00 05/22/19 14:00 Oxygen Delivery Method Room Air Weight: 72.9 kg Body Mass Index (BMI) 29.4 Intake and Output for Last 24 Hours 05/20/19 05/21/19 05/22/19 23:59 23:59 23:59 Intake Total 220 / 220 Balance 220 / 220 General: Alert, Cooperative HEENT: Atraumatic, Normocephalic Neck: No Nodes, Trachea Midline Lungs: Clear to auscultation, Normal air movement, No rhonchi, No wheeze Cardiovascular: Regular rate, Regular Rhythm, Normal S1, Normal S2 Abdomen: Bowel Sounds Present, Soft, Non Tender, Non-Distended Extremities: No edema, No Calf Tenderness Skin: No rashes, No breakdown Laboratory Results 05/21/19 17:57: WBC 6.7, RBC 4.28, Hgb 12.4, Hct 36.2 L, MCV 84.6, MCH 29.0, MCHC 34.3, RDW Std Deviation 39.0, RDW Coeff of Taylor 12.7, Plt Count 217, MPV 10.8, Immature Gran % (Auto) 0.100, Neut % (Auto) 55.3, Lymph % (Auto) 32.1, Kimball % (Auto) 8.8, Eos % (Auto) 3.1, Baso % (Auto) 0.6, Absolute Neuts (auto) 3.7, Absolute Lymphs (auto) 2.15, Nucleated RBC % 0 05/21/19 17:57: PT 13.3, INR 1.0, APTT 27.5 05/21/19 17:57: Sodium 143, Potassium 3.7, Chloride 110 H, Carbon Dioxide 25.0, Anion Gap 8, BUN 18, Creatinine 1.21 H, Estim Creat Clear Calc 27.08, Est GFR (MDRD) Af Amer 55 L, Est GFR (MDRD) Non-Af 46 L, BUN/Creatinine Ratio 14.9, Glucose 105, Calcium 8.4 L, Troponin I < 0.015 05/21/19 20:45: Troponin I < 0.015 05/21/19 20:45: Total Bilirubin 0.20, Direct Bilirubin 0.10, AST 24, ALT 25, Alkaline Phosphatase 95, Total Protein 6.8, Albumin 3.5, Globulin 3.3 05/22/19 00:02: Troponin I < 0.015 05/22/19 06:30: WBC 5.6, RBC 4.45, Hgb 12.8, Hct 37.5, MCV 84.3, MCH 28.8, MCHC 34.1, RDW Std Deviation 37.2, RDW Coeff of Taylor 12.4, Plt Count 205, MPV 10.6, Immature Gran % (Auto) 0.200, Neut % (Auto) 50.8, Lymph % (Auto) 35.7, Kimball % (Auto) 8.3, Eos % (Auto) 4.3, Baso % (Auto) 0.7, Absolute Neuts (auto) 2.8, Absolute Lymphs (auto) 1.98, Nucleated RBC % 0 05/22/19 06:30: Sodium 142, Potassium 4.0, Chloride 110 H, Carbon Dioxide 26.0, Anion Gap 6, BUN 18, Creatinine 1.25 H, Estim Creat Clear Calc 28.86, Est GFR (MDRD) Af Amer 53 L, Est GFR (MDRD) Non-Af 44 L, BUN/Creatinine Ratio 14.4, Glucose 86, Calcium 8.8 Current Medications Amlodipine Besylate (Norvasc) 5 mg PO DAILY [facility] Aspirin (Ecotrin) 81 mg PO DAILY@0800 [facility] Last Admin: 05/22/19 05:02 Dose: 81 mg Documented by: Atropine Sulfate () 0.5 mg IV UD PRN PRN Reason: HR <50 bpm Calcium Carbonate (Os-Marvin 500) [facility] Cholecalciferol (Vitamin D) 1,000 unit PO DAILY [facility] Colestipol HCl (Colestid Tablet) 1 gm PO BID [facility] Ezetimibe (Zetia) 10 mg PO DAILY [facility] Heparin Sodium (Beef Lung) (Heparin 500 Unit/5 Ml (100/Ml)) 500 unit IV UD PRN PRN Reason: HEPARIN FLUSH Hydralazine HCl (Apresoline Iv) 10 mg IV Q4H PRN PRN PRN Reason: SBP>180 Last Admin: 05/22/19 11:49 Dose: 10 mg Documented by: Sodium Chloride () 250 mls @ 15 mls/hr IV .[id number] PRN PRN Reason: Saline Flush Sodium Chloride () 1,000 mls @ 80 mls/hr IV .[id number] [facility] Stop: 05/22/19 16:34 Labetalol HCl (Trandate) 5 mg IV X1 PRN PRN Reason: SBP > 160 when pulling sheath Levothyroxine Sodium (Synthroid) 75 mcg PO DAILY@0600 [facility] Last Admin: 05/22/19 05:02 Dose: 75 mcg Documented by: Metoprolol Tartrate (Lopressor (Beta Samantha)) 50 mg PO BID [facility] Last Admin: 05/22/19 08:18 Dose: 50 mg Documented by: Nitroglycerin (Nitrostat) 0.4 mg SUBLINGUAL Q5M PRN PRN Reason: Chest pain Sodium Chloride () 10 - 40 ml IV UD PRN PRN Reason: SALINE FLUSH Last Admin: 12/12/19 11:49 Dose: 10 ml Documented by: Sodium Chloride () 500 ml IV BOLUS PRN PRN Reason: VASO-VAGAL PROTOCOL Ticagrelor (Brilinta) 90 mg PO BID [facility] Vital Signs/Narrative: Vital Signs Temp Pulse Resp BP Pulse Ox 05/22/19 14:00 84 25 H 163/59 H 100 05/22/19 13:30 75 15 146/53 H 100 05/22/19 13:00 75 14 162/56 H 100 05/22/19 12:45 70 13 157/66 H 100 05/22/19 12:30 70 13 168/64 H 100 05/22/19 12:15 67 14 145/80 H 100 05/22/19 12:00 36.9 C 64 16 123/75 H 100 05/22/19 11:58 62 05/22/19 11:49 61 190/74 H 05/22/19 11:45 57 L 14 190/74 H 99 05/22/19 11:30 58 L 15 160/85 H 97 05/22/19 11:15 55 L 14 179/80 H 98 Assessment/Plan Patient seen and examined independently. Data reviewed. I agree with the above note by the physician early childhood assistant. 1. Unstable angina * s/p stent to LAD in-stent stenosis * ticagrelor, ASA * mgmt per cardiology * monitor overnight Code Visit Inpatient E&M: 52407 Subs Hosp L2
--- NOTE | 2019-05-22 18:55 | CL.I_ITS ---
Patient Name: LISETTE ENAMORADO Study Date: 05/22/2019 Performing: Tran Ann MD Ht: 62 inches 157 cm : 1940 Wt: 161.1 lbs 73 kg Age: 78 Gender: female BSA: 1.74 PROCEDURE(S) PERFORMED [id number] W OR WO PTCA, SINGLE CORONARY ARTERY CLINICAL PROFILE AND CO-MORBIDITIES Indications: Worsening Angina Heart Failure: None Stress/Imaging Stress/Image Study Performed: No CAD Presentations: Unstable angina. CONCLUSIONS Successful PTCA/TAMMY of ISR of mLAD RECOMMENDATIONS ASA Indefinitley Brilinta for at least 12 months Follow up with primary director of recruitment and admissions DESCRIPTION OF PROCEDURE The patient arrived to the procedure lab. The risks and benefits of the procedure as well as a full d escription of our services here and current unavailability of surgical backup were fully explained to the patient and/or their significant other prior to the catheterization. The Timeout was completed, verifying the correct patient and procedure. The patient's procedural site was prepped and draped in the usual fashion. Local anesthetic was given subcutaneously to right radial region with Lidocaine 2% . Local anesthetic was given subcutaneously to right groin region with Lidocaine 2% Using a modified Seldinger technique,arterial access was obtained via the right radial artery, a 6Fr sheath was insert ed. Right Coronary Artery selective angiography was then performed in multiple views using a 5 Fr. 4. 0 [place] catheter. Left Coronary Artery selective angiography was performed in multiple views using a 5 Fr. 4.0 [place] catheter.The images were reviewed and options discussed. A decision was then made to proceed with an Intervention, IVUS or other adjunct procedure. BMW Guide wire was advanced to the LAD Emerge 2.50x15 Balloon catheter was inserted. PTCA balloon inflated at 12 atms for 34 secs. Angiogram performed post balloon dilatation. Synergy 3.00x16 Drug E luting stent was inserted. Angiogram performed post stent deployment. The arterial sheath was pulle d and a TR Band was applied for hemostasis w/ 13 ml INTERVENTION INFORMATION LESION SITE: LAD (Mid) Lesion Complexity: High/C, chronic total occlusion: No, lesion at bifurcation: No, thrombus present: No, lesion length: 12 mm, culprit lesion: Yes, Previously treated lesion: Yes, In-stent restenosis: Y es, Previously treated with a stent: Yes Stent Type: with TAMMY Pre Stenosis: 80 % Pre intervention CASTRO flow: 3 PROCEDURE: Drug Eluting Stent with pre dilatation. Post Stenosis: 0 % Post intervention CASTRO flow: 3 Lesion Devices: Lal .014 BMW [place] Straight 190cm Cardinal 6 Fr XB3.0 100cm Guide Catheter Tomi Sci EMERGE MR 2.50x15 BALLOON Tomi Sci Synergy MR TAMMY 3.00x16 COMPLICATIONS No Complications PROCEDURE MEDICATIONS Versed 1 mg IV Fentanyl 50 mcg IV Versed 1 mg IV Versed 1 mg IV Fentanyl 25 mcg IV Oxygen: 2 L/min via nasal cannula Heparin diluted in 23cc Heparinized saline. Patient given 10cc IA of this solution. 05/22/2019 09:16 :40 Heparin 5000 unit(s) IV 05/22/2019 09:35:09 Verapamil 2.5mg, Ntg 100mcgs, 2000 units of Heparin diluted in 23cc Heparinized saline. Patient give n 10cc IA of this solution. 05/22/2019 09:16:40 Zofran 4 mg IV 05/22/2019 10:05:27 SUMMARY OF HEMODYNAMIC DATA Time AIR REST ECG 08:37:51 AO 152/73 (105) SA 09:21:04 LV 169/-3, 14 09:25:37 LV 175/0, 18 09:25:44 LVp 192/0, 19 09:26:03 AOp 175/0 (50) 09:26:09 Signed By Tran Ann MD On 05/22/2019 18:55:03 Tran Ann MD
[2019-05-22] MEDS: Ezetimibe 10 MG Tablet PO (21:48)
[2019-05-22] MEDS: TICAGRELOR 90 MG TABLET PO (22:23)
[2019-05-23] VITALS (17 sets, daily range): BP systolic 129–178; BP diastolic 46–82; PULSE 66–97; RESP 10–76; TEMP 36.6–36.8; O2SAT 96–100; BMI 29.5
[2019-05-23 05:27] LABS: Hemoglobin 12.7 g/dL (12.0-15.0); Mean Corp Hgb Conc 34.3 g/dL (32-36); Mean Corpuscular Hgb 28.8 pg (27.0-32.0); Mean Corpuscular Volume 83.9 fL (81-99); Mean Platelet Vol. 10.8 fl (6.2-12.0); Platelet Count 215 K/mm3 (150-450); RBC Distribution Width CV 12.7 % (11.6-14.6); RBC Distribution Width SD 38.4 fl (35.1-43.9); Red Blood Count 4.41 M/mm3 (4.2-5.4); White Blood Count 7.2 K/mm3 (4.4-11.0)
[2019-05-23] MEDS: Levothyroxine 75 MCG Tablet PO (05:31)
[2019-05-23 05:58] LABS: ALB/GLOB Ratio 0.9 RATIO (0.9-2.4); AST(SGOT) 24 U/L (15-37); Alanine Aminotransfer ALT/SGPT 28 U/L (13-56); Albumin, Serum 3.1 g/dL (3.2-5.0); Alkaline Phosphatase 79 U/L (45-117); Anion Gap 6 (5-15); BUN 20 mg/dL (7-18); BUN/Creat Ratio 14.9 RATIO (10-20); Chloride 110 mmol/L (98-107); Creatinine, Serum 1.34 mg/dL (0.55-1.02); EST Glomerular Filtration Rate 41 mL/min (>60); Est Glom Filt Rate - Afr Amer 49 mL/min (>60); Estimated Creatinine Clearance 26.92 ml/min; Globulin 3.3 g/dL (2.2-4.2); Glucose 83 mg/dL (74-106); Potassium 3.9 mmol/L (3.5-5.1); Protein, Total 6.4 g/dL (6.4-8.2); Sodium Level 142 mmol/L (136-145)
[2019-05-23] MEDS: Ezetimibe 10 MG Tablet PO (08:37)
[2019-05-23] MEDS: Metoprolol Tartrate 50 MG Tablet PO (08:38)
[2019-05-23] MEDS: Aspirin E.C. 81 MG Tablet PO (08:38)
[2019-05-23] MEDS: amLODIPine 5 MG Tablet PO (08:38)
[2019-05-23] MEDS: Calcium (Elemental) 500 MG Tablet PO ×2 (08:38)
[2019-05-23] MEDS: TICAGRELOR 90 MG TABLET PO (08:40)
--- NOTE | 2019-05-23 09:37 | CRPHASE1_ITS ---
Risk Factors/Lifestyle Family History: Family History (Last Reviewed 06/21/18 @ 15:11 by Enrique Roach MD) Mother CAD (coronary artery disease) Grandmother CAD (coronary artery disease) Cardiac Rehabilitation Info Cardiac Rehabilitation Program Information: Cardiac Rehabilitation is important for patients like you who are recovering from a heart problem. Cardiac rehabilitation programs are recognized as integral to the continued care of the patient with coronary heart disease. The cardiac rehabilitation program is designed to optimize a patient's physical, psychological, and social functioning. Health healthcare sales representative work in cardiac rehabilitation programs and assist you with getting the treatments you need to get stronger and healthier - like exercise, healthy eating habits, and medications. Cardiac rehabilitation has been show to help people with heart problems live longer and have better life enjoyment than people who do not go to cardiac rehabilitation. Please contact the Cardiac Rehabilitation Program at [facility] at in two weeks if you have not heard from them.
--- NOTE | 2019-05-23 09:53 | CASEMGMT ---
Intro role of CM to patient and IVEY form explained re: Observation status for treatment of chest pain/angioplast/PCI. Explained hospitalization will be paid per? insurance policy for Outpatient billing?and condition will continue to be evaluated for Inpt necessity. Also let pt know that [facility] sends paper in the billing packet with their phone number if questions arise. Discussed Pharmacy section of IVEY form and self administered medication guideline.? Pt verbalizes understanding and does not have further questions. Form signed and placed in chart, copy to pt. VIKTOR LAURENT BSN CM
--- NOTE | 2019-05-23 10:29 | PCM.DC ---
You will use the following diet at home:: Cardiac Your food should be the consistency of: Regular Your liquids should be the consistency of: Regular/Thin Discharge Activity: - - as directed by Cardiology Allergies/Adverse Reactions: Allergies DEIRDRE Inhibitors Allergy (Verified 05/21/19 17:21) Unknown ARB-Angiotensin Receptor Antagonist Allergy (Verified 05/21/19 17:21) Unknown atorvastatin calcium [From Lipitor] Allergy (Verified 05/21/19 17:21) Unknown pravastatin [From Pravachol] Allergy (Verified 05/21/19 17:21) Unknown Medications to take at Discharge Aspirin E.C. [Ecotrin] 81 mg PO DAILY@0800 tab 08/14/17 multivit with [id number]-lutein 8 mg iron-400 mcg-300 mcg tablet 1 tab PO DAILY 04/11/18 metoprolol tartrate 50 mg tablet 50 mg PO BID #180 tab 06/21/18 ezetimibe 10 mg tablet 10 mg PO DAILY #90 tab 10/14/18 nitroglycerin 0.4 mg sublingual tablet 0.4 mg SUBLINGUAL Q5M PRN #25 tab 04/30/19 Calcium (Elemental) [Os-Marvin 500] 500 mg PO BIDCM 05/21/19 Cholecalciferol (VIT D3) [Vitamin D3] 1,000 unit PO DAILY 05/21/19 Colestipol Tablet [Colestid Tablet] 1 gm PO BID 05/21/19 Levothyroxine Sodium [Synthroid] 75 mcg PO DAILY 05/21/19 Amlodipine [Norvasc] 5 mg PO DAILY #30 tab 05/23/19 Ticagrelor [Brilinta] 90 mg PO BID #60 tab 05/23/19 The following prescriptions were given: Ticagrelor [Brilinta] 90 mg PO BID #60 tab Transmission Status: Pending to [facility] -1955 [facility] [place] Amlodipine [Norvasc] 5 mg PO DAILY #30 tab Transmission Status: Pending to [facility]evan -1955 [facility] [place] Primary Care Physician: Mamie Mendez MD [Primary Care Provider] - Please follow up with your Primary Care Physician in: 1-2 weeks Test Results: Test results from this visit will be discussed in further detail at your follow-up appointment, if applicable. Please Follow Up With: Enrique Roach MD When: as directed Proposed Discharge Date: 05/23/19
--- NOTE | 2019-05-23 10:53 | CRPHASE1_ITS ---
Patient Communication Former Patient:: Phase II PHII Cardiac Rehab Discussed with Patient:: Yes Guide to Cardiac Rehab Given to Patient:: Yes Cardiac Rehab Facility Choice List Given to Patient:: Yes - [facility] Choice Program [facility] CR PHII:: Communication Given to CR, Refer to [facility] Centrifugal Chiller Technician:: Celsa Ann PCP:: Mamie Mendez Sessions:: 36 sessions - 3 days/wk, 12 weeks Risk Factors/Lifestyle Smoking Status: Never smoker Hx Hypertension: Yes Height: 1.57 m Weight:: 72.9 kg BMI: 29.5 Family History: Family History (Last Reviewed 06/21/18 @ 15:11 by Enrique Roach MD) Mother CAD (coronary artery disease) Grandmother CAD (coronary artery disease) Family History: High Cholesterol, Heart Disease, Hypertension Past Cardiac Illness: Coronary Artery Disease, Previous PCI w/Stent Phase I Education Given On:: [place], Nutrition Issues Affecting Care:: None Knowledge of Condition:: Yes Hospital Course Pain Description: Aching - IN THE BACK Cardiac Cath Date:: 05/23/19 Medical/Surgical History Angina:: Yes Hypertension:: Yes Dyslipidemia:: Yes PTCA:: Yes Discharge/Home/Social Eval Discharge Disposition: Home Marital Status: Single Cardiac Rehabilitation Info Cardiac Rehabilitation Program Information: Cardiac Rehabilitation is important for patients like you who are recovering from a heart problem. Cardiac rehabilitation programs are recognized as integral to the continued care of the patient with coronary heart disease. The cardiac rehabilitation program is designed to optimize a patient's physical, psychological, and social functioning. Health healthcare social worker work in cardiac rehabilitation programs and assist you with getting the treatments you need to get stronger and healthier - like exercise, healthy eating habits, and medications. Cardiac rehabilitation has been show to help people with heart problems live longer and have better life enjoyment than people who do not go to cardiac rehabilitation. Please contact the Cardiac Rehabilitation Program at [facility] at in two weeks if you have not heard from them.
--- NOTE | 2019-05-23 10:56 | CRPH1.INSTRU ---
General Education CAD and cardiac anatomy and function:: Patient communicates acknowledgment Explanation of diagnoses and procedures:: Patient communicates acknowledgment Sign/Symptoms of DC:: Not instructed Antiplatelet therapy: Not instructed Proper use of NTG-SL: Not instructed Emergency procedures and activation of EMS: Not instructed Compliance of all prescribed medications: Not instructed Smoking Patient Nicotine/Smoking Risk Factors Are:: Never smoked Dyslipidemia Recommendations Include:: Lipid profile not available Overweight/Obesity Overweight/Obesity:: Patient communicates acknowledgment Hypertension Hypertension:: Patient communicates acknowledgment - on meds Heart Disease Patient Heart Disease Risk Factors Are:: Family history of heart disease < 65 years old, Previous cardiac event Heart Disease Response Code:: Patient communicates acknowledgment Diabetes Patient Diabetes Risk Factors Are:: No documented hx of diabetes Metabolic Syndrome Recommendations Include:: Does not meet criteria Sedentary Sedentary Response Code:: Patient communicates acknowledgment Stress Patient Stress Risk Factors Are:: Patient denies stress as a risk factor
--- NOTE | 2019-05-23 11:07 | CASEMGMT ---
SW spoke w/pt in room in regard to recent loss of brother in law, and sister who is on hospice. Pt spoke about family, and about her own health issues. Pt tearful, reflective. Pt also spoke about her children, and that they are coming to visit with their families for [place]. Pt spoke about feeling grateful for her family and that she still can walk, still has her mind. Support offered to pt. No further needs, SW available for any additional support. ELIDA Boss
--- NOTE | 2019-05-23 12:16 | PCM.PN.CARD ---
<Selma Kilgore M - Last Filed: 05/23/19 12:16> Subjectve: Pt does not have any chest pain. She is concerned about her BP medications. She sts that this is making her head feel funny. Bp was elevated but has improved. Objective: Vital Signs Temp Pulse Resp BP Pulse Ox 98.3 F 71 16 136/69 H 100 05/23/19 12:00 05/23/19 12:00 05/23/19 12:00 05/23/19 12:00 05/23/19 12:00 Oxygen Delivery Method Room Air Weight: 160 lb 11.472 oz Body Mass Index (BMI) 29.4 Intake and Output for Last 24 Hours 05/21/19 05/22/19 05/23/19 23:59 23:59 23:59 Intake Total 220 / 220 880 / 1080 300 / 300 Output Total 1200 / 1600 400 / 400 Balance 220 / 220 -320 / -520 -100 / -100 General: Healthy Appearing, Awake, Alert, Oriented x 3 HEENT: Atraumatic, Normocephalic Oral: Moist Mucosa Neck: Supple, No JVD Lungs: Clear to auscultation Cardiovascular: Regular Rhythm, No Murmurs, No Rubs, No Gallops Abdomen: Bowel Sounds Present, Soft, Non Tender Extremities: No Cyanosis, No Clubbing, No edema Neurological: No Focal Motor or Sensory Deficit, CN II-XII Intact Psych/Mental Status: Appropriate, Normal Affect 05/23/19 05:15: WBC 7.2, RBC 4.41, Hgb 12.7, Hct 37.0, MCV 83.9, MCH 28.8, MCHC 34.3, Plt Count 215, MPV 10.8 05/23/19 05:15: Sodium 142, Potassium 3.9, Chloride 110 H, Carbon Dioxide 26.0, Anion Gap 6, BUN 20 H, Creatinine 1.34 H, Est GFR (MDRD) Af Amer 49 L, Est GFR (MDRD) Non-Af 41 L, BUN/Creatinine Ratio 14.9, Glucose 83, Calcium 8.0 L, Total Bilirubin 0.40 Rhythm: EKG: ECHO: Stress Test: Cardiac Cath: DOMINANCE: Left Dominant LEFT HEART ASSESSMENT Left Ventricular Ejection Fraction: Not assessed LEFT MAIN: Mild calcification, Angiographically normal LEFT ANTERIOR DESCENDING ARTERY: MID LAD: Previously placed stent has an instent 90 % restenosis CIRCUMFLEX ARTERY: Mild luminal irregularities RIGHT CORONARY ARTERY: OSTIAL RCA: Previously placed stent is patent PCI: Stenting to LAD CT Surgery: Holter monitor: EPS: PPM: CXR: Chest CT Scan: Medical Necessity - Tobacco Use Smoking Status: Never smoker Tobacco Use: Non-smoker Assessment/Plan 1. Unstable Angina. Pt did have in stent stenosis of her LAD, she underwent stenting of this vessel. With the restenosis she was switched to Brilinta. Recommend that she continue with her ASA, BB, statin. She is not on an DEIRDRE/ARB d/t allergy. She will be referred to cardiac rehab. 2. Essential (primary) hypertension I10 Bp has been elevated, Norvasc was added. Encouraged pt to continue this medication at discharge and will make adjustments if need be. 3. Pure hypercholesterolemia E78.00 Lipid panel from August 2018 showed cholesterol: 175, HDL: 35, LDL: 101, and triglyceride: 197. She will continue current cholesterol-lowering medications. She is intolerant to statins. We will continue to monitor. 4. Bilateral carotid artery stenosis I65.23 Her carotid duplex ultrasound from September 2018 showed no changes as compared to July 2012. She will continue with current medications and we will continue to mo <Tai Levin - Last Filed: 05/23/19 14:07> Objective: Vital Signs Temp Pulse Resp BP Pulse Ox 98.3 F 71 16 136/69 H 100 05/23/19 12:00 05/23/19 12:00 05/23/19 12:00 05/23/19 12:00 05/23/19 12:00 Oxygen Delivery Method Room Air Weight: 160 lb 11.472 oz Body Mass Index (BMI) 29.4 Intake and Output for Last 24 Hours 05/21/19 05/22/19 05/23/19 23:59 23:59 23:59 Intake Total 220 / 220 880 / 1080 300 / 300 Output Total 1200 / 1600 400 / 400 Balance 220 / 220 -320 / -520 -100 / -100 05/23/19 05:15: WBC 7.2, RBC 4.41, Hgb 12.7, Hct 37.0, MCV 83.9, MCH 28.8, MCHC 34.3, Plt Count 215, MPV 10.8 05/23/19 05:15: Sodium 142, Potassium 3.9, Chloride 110 H, Carbon Dioxide 26.0, Anion Gap 6, BUN 20 H, Creatinine 1.34 H, Est GFR (MDRD) Af Amer 49 L, Est GFR (MDRD) Non-Af 41 L, BUN/Creatinine Ratio 14.9, Glucose 83, Calcium 8.0 L, Total Bilirubin 0.40 Rhythm: EKG: ECHO: Stress Test: Cardiac Cath: PCI: CT Surgery: Holter monitor: EPS: PPM: CXR: Chest CT Scan: Assessment/Plan Addendum: Date: 05-23-19 The patient was independently evaluated and examined. The patient appears to be without any ongoing acute symptoms or adverse events at this time. She appears to be resting comfortably. Her lungs appear to be clear. Her cardiovascular examination demonstrates a regular rhythm with a normal S1 and S2. Her lower extremities do not demonstrate any obvious peripheral pitting edema. Her cardiac rhythm has demonstrated sinus rhythm with PACs. Her ECG is demonstrated no acute changes. At the present time she has a history of underlying CAD and is now status post PCI of the LAD in-stent restenosis superimposed upon history of hyperlipidemia and hypertension and carotid artery disease. At the present time she will continue risk factor modification medical therapy. Her medications may need to be adjusted over time depending upon her clinical course, tolerance, vital signs, etc. She will have future outpatient cardiovascular follow-up. Comment: The above was discussed with the patient and with ROBERTO Madrigal. This note was generated using a voice recognition system and there may be incorrect words, spelling or punctuation that were not noted when reviewing the office note prior to saving.
--- NOTE | 2019-05-23 13:13 | PCM.DC.SUM ---
<Daniel Bauer - Last Filed: 05/23/19 13:13> Discharge Date and Diagnosis Date of Admission: 05/21/19 Date of Discharge: 05/23/19 - Primary Discharge Diagnosis Unstable angina, CAD s/p new stent placed mid LAD HTN HLD Hypothyroidism Suspected CKDIII - Secondary Discharge Diagnosis Chronic Problems (Last Updated 06/26/18 @ 17:10 by Amy Cunningham) Essential (primary) hypertension (Chronic) Pure hypercholesterolemia (Chronic) Atherosclerosis of [place] coronary artery of [place] heart without angina pectoris (Chronic) PCI-TAMMY-ISR Prox RCA 3.0 x 12 mm Elunir 05/22/18 PCI-TAMMY to ISR Mid LAD using Resolute Integrity 2.5 x 12 mm 08/13/2017; PTCA and TAMMY to RCA 03/09/[address] Ortez @ [facility]; PTCA and TAMMY to mid LAD 09/26/[address] Chilel at [facility]; Cutting Balloon and TAMMY to Ostial RCA 08/12/2013 @ [facility] per Dr. Godinez Intermittent claudication (Chronic) Carotid artery disease (Chronic) Atherosclerotic heart disease of [place] coronary artery with other forms of angina pectoris (Chronic) PCI-TAMMY to ISR Mid LAD using Resolute Integrity 2.5 x 12 mm 08/13/2017 PTCA and TAMMY to RCA 03/09/[address] Ortez @ [facility]; PTCA and TAMMY to mid LAD 09/26/[address] Chilel at [facility]; Cutting Balloon and TAMMY to Ostial RCA 08/12/2013 @ [facility] per Dr. Godinez Hospital Course and Treatment Imaging Results: DIAGNOSTICS: Left heart cath: CONCLUSIONS Successful PTCA/TAMMY of ISR of mLAD RECOMMENDATIONS ASA Indefinitley Brilinta for at least 12 months Follow up with primary terrazzo finisher helper RAD/Chest 1 View (Portable) IMPRESSION: No acute cardiopulmonary findings. Negative for consolidation, focal atelectasis, pleural effusion or cardiomegaly. Consults: Cardiology - Marley / Seth Operations: None Procedures: Cardiac catheterization Summary of Care Provided: Hospital course: The patient is a 78 year old F with past medical history as above most notable for prior CAD with prior stent, who presented to the emergency room with increased chest pain. Pain was described as a severe back pain radiating to her anterior chest with some nausea and diaphoresis. She was sent to the ED by her terrazzo finisher helper. She did have relief of her chest pain with 2 doses of nitro. In the emergency room she had a negative EKG, negative troponin, negative chest x-ray. She was admitted to the PCU for chest pain work-up. Repeat EKG was negative, troponin was negative x3. The patient was taken the following day for a heart catheterization, and she did have 90% stenosis of her prior stent, and she underwent PCI to the mid LAD of the in-stent stenosis successfully. Following the heart catheterization she continued to have high blood pressure and she was started on Norvasc which she did improve significantly with. Patient is statin allergic and will continue with Zetia and colestipol. She is also allergic to DEIRDRE/ARBs. She was placed on Brilinta following the heart cath. She was stable the following day and was discharged home. She will need to follow-up with cardiology as directed, follow-up with her PCP in 2 weeks. This patient was seen by Daniel Bauer PA-C under the supervision of Doctor Reji. [] - Physical Exam Vitals/I&O's: Vital Signs Temp Pulse Resp BP Pulse Ox 98.3 F 71 16 136/69 H 100 05/23/19 12:00 05/23/19 12:00 05/23/19 12:00 05/23/19 12:00 05/23/19 12:00 Oxygen Delivery Method Room Air Weight: 160 lb 11.472 oz Body Mass Index (BMI) 29.4 Intake and Output for Last 24 Hours 05/21/19 05/22/19 05/23/19 23:59 23:59 23:59 Intake Total 220 / 220 880 / 1080 300 / 300 Output Total 1200 / 1600 400 / 400 Balance 220 / 220 -320 / -520 -100 / -100 General: Alert, Oriented x3, Cooperative HEENT: Atraumatic, PERRLA, EOMI, Normocephalic Neck: Supple, No JVD, Negative Carotid Bruits Lungs: Clear to auscultation, Normal air movement Cardiovascular: Regular rate, No murmurs Abdomen: Bowel Sounds Present, Soft, Non Tender Extremities: No edema, Capillary Refill Less than 3 Seconds Skin: No rashes, No breakdown Musculoskeletal: No Tenderness to Palpation of Joints or Extremities Neurological: Cranial nerves II-XII grossly intact Psych/Mental Status: Normal Affect, Appropriate, Alert and oriented to time, place, person, mood and affect Laboratory Results 05/23/19 05:15: WBC 7.2, RBC 4.41, Hgb 12.7, Hct 37.0, MCV 83.9, MCH 28.8, MCHC 34.3, RDW Std Deviation 38.4, RDW Coeff of Taylor 12.7, Plt Count 215, MPV 10.8 05/23/19 05:15: Sodium 142, Potassium 3.9, Chloride 110 H, Carbon Dioxide 26.0, Anion Gap 6, BUN 20 H, Creatinine 1.34 H, Estim Creat Clear Calc 26.92, Est GFR (MDRD) Af Amer 49 L, Est GFR (MDRD) Non-Af 41 L, BUN/Creatinine Ratio 14.9, Glucose 83, Calcium 8.0 L, Total Bilirubin 0.40, AST 24, ALT 28, Alkaline Phosphatase 79, Total Protein 6.4, Albumin 3.1 L, Globulin 3.3, Albumin/Globulin Ratio 0.9 Current Medications Amlodipine Besylate (Norvasc) 5 mg PO DAILY [facility] Last Admin: 05/23/19 08:38 Dose: 5 mg Documented by: Aspirin (Ecotrin) 81 mg PO DAILY@0800 [facility] Last Admin: 05/23/19 08:38 Dose: 81 mg Documented by: Atropine Sulfate () 0.5 mg IV UD PRN PRN Reason: HR <50 bpm Calcium Carbonate (Os-Marvin 500) 500 mg PO BIDCM [facility] Last Admin: 05/23/19 08:38 Dose: 500 mg Documented by: Cholecalciferol (Vitamin D) 1,000 unit PO DAILY [facility] Last Admin: 05/23/19 08:38 Dose: 1,000 unit Documented by: Colestipol HCl (Colestid Tablet) 1 gm PO BID [facility] Last Admin: 05/23/19 08:38 Dose: 1 gm Documented by: Ezetimibe (Zetia) 10 mg PO DAILY [facility] Last Admin: 05/23/19 08:37 Dose: 10 mg Documented by: Heparin Sodium (Beef Lung) (Heparin 500 Unit/5 Ml (100/Ml)) 500 unit IV UD PRN PRN Reason: HEPARIN FLUSH Hydralazine HCl (Apresoline Iv) 10 mg IV Q4H PRN PRN PRN Reason: SBP>180 Last Admin: 05/22/19 11:49 Dose: 10 mg Documented by: Sodium Chloride () 250 mls @ 15 mls/hr IV .[id number] PRN PRN Reason: Saline Flush Labetalol HCl (Trandate) 5 mg IV X1 PRN PRN Reason: SBP > 160 when pulling sheath Levothyroxine Sodium (Synthroid) 75 mcg PO DAILY@0600 [facility] Last Admin: 05/23/19 05:31 Dose: 75 mcg Documented by: Metoprolol Tartrate (Lopressor (Beta Samantha)) 50 mg PO BID [facility] Last Admin: 05/23/19 08:38 Dose: 50 mg Documented by: Nitroglycerin (Nitrostat) 0.4 mg SUBLINGUAL Q5M PRN PRN Reason: Chest pain Sodium Chloride () 10 - 40 ml IV UD PRN PRN Reason: SALINE FLUSH Last Admin: 05/22/19 11:49 Dose: 10 ml Documented by: Sodium Chloride () 500 ml IV BOLUS PRN PRN Reason: VASO-VAGAL PROTOCOL Ticagrelor (Brilinta) 90 mg PO BID [facility] Last Admin: 05/23/19 08:40 Dose: 90 mg Documented by: Discharge Diet: Low fat/ Low Cholesterol, 2000 mg Sodium Diet Discharge Activity: Return to Normal Activity, - - as directed by Cardiology Home Medications: Medications to take at Discharge Aspirin E.C. [Ecotrin] 81 mg PO DAILY@0800 tab 08/14/17 multivit with owhzhkoe-anll-[id number]-lutein 8 mg iron-400 mcg-300 mcg tablet 1 tab PO DAILY 04/11/18 metoprolol tartrate 50 mg tablet 50 mg PO BID #180 tab 06/21/18 ezetimibe 10 mg tablet 10 mg PO DAILY #90 tab 10/14/18 nitroglycerin 0.4 mg sublingual tablet 0.4 mg SUBLINGUAL Q5M PRN #25 tab 04/30/19 Calcium (Elemental) [Os-Marvin 500] 500 mg PO BIDCM 05/21/19 Cholecalciferol (VIT D3) [Vitamin D3] 1,000 unit PO DAILY 05/21/19 Colestipol Tablet [Colestid Tablet] 1 gm PO BID 05/21/19 Levothyroxine Sodium [Synthroid] 75 mcg PO DAILY 05/21/19 Amlodipine [Norvasc] 5 mg PO DAILY #30 tab 05/23/19 Ticagrelor [Brilinta] 90 mg PO BID #60 tab 05/23/19 Following Prescrptions Were Given to Patient: Ticagrelor [Brilinta] 90 mg PO BID #60 tab Transmission Status: Received by MONIQUE MOYA-Laurie [facility] Amlodipine [Norvasc] 5 mg PO DAILY #30 tab Transmission Status: Received by MONIQUE MOYA-1954 [facility] Other Amb Orders: Phase II, Outpatient Cardiac Rehab Location: None Selected Primary Care Physician: Mamie Mendez MD [Primary Care Provider] - Please follow up with your Primary Care Physician in: 1-2 weeks Please Follow Up With: Enrique Roach MD When: as directed Disposition: Home Minutes spent on discharge:: 35 Patient Condition:: Stable Medical Necessity - Tobacco Use Smoking Status: Never smoker Tobacco Use: Non-smoker Meaningful Use Info Meaningful Use Diagnoses (Choose all that apply): None applicable <Edu Mendoza - Last Filed: 05/23/19 14:18> Discharge Date and Diagnosis - Secondary Discharge Diagnosis Chronic Problems (Last Updated 06/26/18 @ 17:10 by Amy Cunningham) Essential (primary) hypertension (Chronic) Pure hypercholesterolemia (Chronic) Atherosclerosis of [place] coronary artery of [place] heart without angina pectoris (Chronic) PCI-TAMMY-ISR Prox RCA 3.0 x 12 mm Elunir 05/22/18 PCI-TAMMY to ISR Mid LAD using Resolute Integrity 2.5 x 12 mm 08/13/2017; PTCA and TAMMY to RCA 03/09/[address] Ortez @ [facility]; PTCA and TAMMY to mid LAD 09/26/[address] Chilel at [facility]; Cutting Balloon and TAMMY to Ostial RCA 08/12/2013 @ [facility] per Dr. Godinez Intermittent claudication (Chronic) Carotid artery disease (Chronic) Atherosclerotic heart disease of [place] coronary artery with other forms of angina pectoris (Chronic) PCI-TAMMY to ISR Mid LAD using Resolute Integrity 2.5 x 12 mm 08/13/2017 PTCA and TAMMY to RCA 03/09/[address] Ortez @ [facility]; PTCA and TAMMY to mid LAD 09/26/[address] Chilel at [facility]; Cutting Balloon and TAMMY to Ostial RCA 08/12/2013 @ [facility] per Dr. Godinez Hospital Course and Treatment Operations: None Procedures: Cardiac catheterization Summary of Care Provided: Patient seen and examined independently. Data reviewed. I agree with the above note by the physician teaching assistant. The patient is a 78 year old F presents with chest pain. Patient underwent left heart catheterization showed in-stent stenosis of her LAD stent. Patient had a stent placed and did well. Patient otherwise doing well and will be discharged with follow-up with cardiology. [] - Physical Exam Vitals/I&O's: Vital Signs Temp Pulse Resp BP Pulse Ox 36.8 C 71 16 136/69 H 100 05/23/19 12:00 05/23/19 12:00 05/23/19 12:00 05/23/19 12:00 05/23/19 12:00 Oxygen Delivery Method Room Air Weight: 72.9 kg Body Mass Index (BMI) 29.4 Intake and Output for Last 24 Hours 05/21/19 05/22/19 05/23/19 23:59 23:59 23:59 Intake Total 220 / 220 880 / 1080 300 / 300 Output Total 1200 / 1600 400 / 400 Balance 220 / 220 -320 / -520 -100 / -100 General: Alert, Cooperative HEENT: Atraumatic, Normocephalic Neck: No Nodes, Trachea Midline Lungs: Clear to auscultation, Normal air movement Cardiovascular: Regular rate, No murmurs Abdomen: Bowel Sounds Present, Non Tender Skin: No rashes, No breakdown Laboratory Results 05/23/19 05:15: WBC 7.2, RBC 4.41, Hgb 12.7, Hct 37.0, MCV 83.9, MCH 28.8, MCHC 34.3, RDW Std Deviation 38.4, RDW Coeff of Taylor 12.7, Plt Count 215, MPV 10.8 05/23/19 05:15: Sodium 142, Potassium 3.9, Chloride 110 H, Carbon Dioxide 26.0, Anion Gap 6, BUN 20 H, Creatinine 1.34 H, Estim Creat Clear Calc 26.92, Est GFR (MDRD) Af Amer 49 L, Est GFR (MDRD) Non-Af 41 L, BUN/Creatinine Ratio 14.9, Glucose 83, Calcium 8.0 L, Total Bilirubin 0.40, AST 24, ALT 28, Alkaline Phosphatase 79, Total Protein 6.4, Albumin 3.1 L, Globulin 3.3, Albumin/Globulin Ratio 0.9 Current Medications Amlodipine Besylate (Norvasc) 5 mg PO DAILY [facility] Last Admin: 05/23/19 08:38 Dose: 5 mg Documented by: Aspirin (Ecotrin) 81 mg PO DAILY@0800 [facility] Last Admin: 05/23/19 08:38 Dose: 81 mg Documented by: Atropine Sulfate () 0.5 mg IV UD PRN PRN Reason: HR <50 bpm Calcium Carbonate (Os-Marvin 500) [facility] Last Admin: 05/23/19 08:38 Dose: 500 mg Documented by: Cholecalciferol (Vitamin D) 1,000 unit PO DAILY [facility] Last Admin: 05/23/19 08:38 Dose: 1,000 unit Documented by: Colestipol HCl (Colestid Tablet) 1 gm PO BID [facility] Last Admin: 05/23/19 08:38 Dose: 1 gm Documented by: Ezetimibe (Zetia) 10 mg PO DAILY [facility] Last Admin: 05/23/19 08:37 Dose: 10 mg Documented by: Heparin Sodium (Beef Lung) (Heparin 500 Unit/5 Ml (100/Ml)) 500 unit IV UD PRN PRN Reason: HEPARIN FLUSH Hydralazine HCl (Apresoline Iv) 10 mg IV Q4H PRN PRN PRN Reason: SBP>180 Last Admin: 05/22/19 11:49 Dose: 10 mg Documented by: Sodium Chloride () 250 mls @ 15 mls/hr IV .[id number] PRN PRN Reason: Saline Flush Labetalol HCl (Trandate) 5 mg IV X1 PRN PRN Reason: SBP > 160 when pulling sheath Levothyroxine Sodium (Synthroid) 75 mcg PO DAILY@0600 [facility] Last Admin: 05/23/19 05:31 Dose: 75 mcg Documented by: Metoprolol Tartrate (Lopressor (Beta Samantha)) 50 mg PO BID [facility] Last Admin: 05/23/19 08:38 Dose: 50 mg Documented by: Nitroglycerin (Nitrostat) 0.4 mg SUBLINGUAL Q5M PRN PRN Reason: Chest pain Sodium Chloride () 10 - 40 ml IV UD PRN PRN Reason: SALINE FLUSH Last Admin: 05/22/19 11:49 Dose: 10 ml Documented by: Sodium Chloride () 500 ml IV BOLUS PRN PRN Reason: VASO-VAGAL PROTOCOL Ticagrelor (Brilinta) 90 mg PO BID [facility] Last Admin: 05/23/19 08:40 Dose: 90 mg Documented by: Discharge Diet: Low fat/ Low Cholesterol, 2000 mg Sodium Diet Discharge Activity: Return to Normal Activity, - Disposition: Home Minutes spent on discharge:: 35 Patient Condition:: Stable Medical Necessity - Tobacco Use Smoking Status: Never smoker Tobacco Use: Non-smoker Meaningful Use Info Meaningful Use Diagnoses (Choose all that apply): None applicable Code Visit OBSV E&M: 23279 Observation care discharge
== END 2019-05-23 14:20 | disposition home or self-care (01) ==
LOC: ED 17:45 → PCU 19:00 → ICU 05-22 09:40
PROVIDERS: Hospitalist; Specialist; Admitting Provider Internal Medicine; Emergency Provider Emergency Medicine; Family Provider Internal Medicine; PCP Internal Medicine; Referring Provider Internal Medicine
DX: I25.110 Atherosclerotic heart disease of native coronary artery with unstable angina pectoris (principal); T82.855A Stenosis of coronary artery stent, initial encounter; E78.5 Hyperlipidemia, unspecified; I10 Essential (primary) hypertension; E03.9 Hypothyroidism, unspecified; Z79.899 Other long term (current) drug therapy; Z79.02 Long term (current) use of antithrombotics/antiplatelets; Z79.82 Long term (current) use of aspirin; I73.9 Peripheral vascular disease, unspecified; I65.23 Occlusion and stenosis of bilateral carotid arteries; Y71.8 Miscellaneous cardiovascular devices associated with adverse incidents, not elsewhere classified
CPT/HCPCS: 36415; 71045; 80048; 80053; 80076; 84484; 85025; 85027; 85610; 85730; 92928; 93005; 93454; 96361; 96372; 96374; 99152; 99153; 99218; 99285; J7030; J7040; Q9967; A4216; C1725; C1751; C1769; C1874; C1887; C1894; C9600; G0378; J2405

== ENCOUNTER → 2019-06-20 09:07 | Outpatient (CLI) | payer MEDICARE, OTHER, SELFPAY ==
[2019-06-10 10:19] VITALS: BMI 30.8
[2019-06-20 10:00] LABS: AST(SGOT) 23 U/L (15-37); Alanine Aminotransfer ALT/SGPT 28 U/L (13-56); Albumin, Serum 3.6 g/dL (3.2-5.0); Alkaline Phosphatase 99 U/L (45-117); Bilirubin, Direct 0.08 mg/dL (0.00-0.30); Cholesterol 202 mg/dL (200); Globulin 3.7 g/dL (2.2-4.2); High Density Lipoprotein 36 mg/dL; Protein, Total 7.3 g/dL (6.4-8.2); Triglycerides 239 mg/dL; Very Low Density Lipoprotein 48 mg/dL (5-40)
== END ==
PROVIDERS: Family Provider Internal Medicine; PCP Internal Medicine; Referring Provider Physician Assistant Medical; Visit Provider Physician Assistant Medical
DX: I10 Essential (primary) hypertension (principal); E78.00 Pure hypercholesterolemia, unspecified; I65.23 Occlusion and stenosis of bilateral carotid arteries; I25.118 Atherosclerotic heart disease of native coronary artery with other forms of angina pectoris
CPT/HCPCS: 36415; 80061; 80076

== ENCOUNTER 2019-07-11 13:00 | Emergency (ER) | payer MEDICARE, OTHER, SELFPAY ==
[2019-06-10 10:19] VITALS: BMI 30.8
[2019-07-11 13:02] VITALS: BP 133/68; PULSE 73; RESP 18; TEMP 36.7; O2SAT 98; BMI 28.9
--- NOTE | 2019-07-11 13:22 | CT_ITS ---
STUDY: CT ABDOMEN AND PELVIS WITHOUT CONTRAST REASON FOR EXAM: Female, 79 years old. ABD PAIN, BLOOD IN STOOL RADIATION DOSAGE (If Supplied By Facility): CTDIvol = ( 13.42 ) mGy, DLP = ( 634.09 ) mGycm TECHNIQUE: Transaxial images were obtained from the dome of the diaphragm to the symphysis pubis without oral contrast, and without intravenous contrast. Sagittal and coronal images were reconstructed. Individualized dose optimization techniques were used for this CT. COMPARISON: None. FINDINGS: The visualized lung bases are unremarkable. Coronary artery calcification. 2 small cysts are seen in the left lobe of the liver. There is also evidence of a 1.6 cm cyst in the anterior aspect of the left lobe of liver as well as a 7 mm cyst in the inferior aspect of the right lobe of the liver. Normal gallbladder and extrahepatic biliary system. Normal spleen. Normal pancreas. Normal bilateral adrenal glands. Normal right kidney. Normal left kidney. There is a small hiatal hernia. Normal small intestine. Scattered sigmoid diverticulosis. The appendix is visualized and appears normal. There is diffuse atherosclerotic calcification of the abdominal aorta, without a demonstrated aneurysm. Normal inferior vena cava. Normal retroperitoneum. Normal urinary bladder. There is a small umbilical hernia containing fat. There are diffuse degenerative changes of the visualized lumbar spine. CT/Abdomen/Pelvis W IV Cont ONLY IMPRESSION: Small hepatic cysts. Scattered sigmoid diverticula. Electronically Signed: Ronal Day, at 15:37 EST , Service support ,
--- NOTE | 2019-07-11 13:46 | ED.VIS.GI ---
History of Present Illness Chief Complaint: GI Bleed Informant: Patient - Abdominal Pain/Flank Pain Onset: Month(s) Context: Gradual Onset Timing: Continuous Quality: Aching Location: - - Lower abdomen Current Severity: Mild - Diarrhea/Melena/Hematochezia GI Symptom: Hematochezia Onset: Today Stool Quality: Maroon Narrative: Patient is an 79-year-old female with history of irritable bowel syndrome and diverticulosis presenting after an episode of blood in her stool. Patient states that beginning of this month she had episode of bright red blood per rectum. She states it only happened once and denies any associated pain. She is not on any anticoagulation. She is on Brilinta however. She started taking a fiber supplement and had no further bleeding. Today she had 2 normal brown soft bowel movements. While she was at the grocery store she had some abdominal discomfort and then had a third bowel movement that did have blood intertwined in it. She states his blood was dark red. She states this was different than her prior bleeding. Patient states she has had lower abdominal pain for the past year. She has had a colonoscopy in the past but states it was years ago and does any remember who performed it. She denies any associated nausea or vomiting. She denies any change to her chronic abdominal pain. She is not aware of having any hemorrhoids. She denies any other complaints at this time. Patient does not have any reported fever, chills, lightheadedness, dizziness, chest pain or shortness of breath. She states she is hungry and wants to go out to lunch as soon as she is done here. Past Medical History - Allergies and Home Meds Allergies/Adverse Reactions: Allergies DEIRDRE Inhibitors Allergy (Verified 07/11/19 13:02) Unknown ARB-Angiotensin Receptor Antagonist Allergy (Verified 07/11/19 13:02) Unknown atorvastatin calcium [From Lipitor] Allergy (Verified 07/11/19 13:02) Unknown pravastatin [From Pravachol] Allergy (Verified 07/11/19 13:02) Unknown Primary Care Physician: Mamie Mendez MD [Primary Care Provider] - Past Medical History: - - Coronary artery disease status post stents x5, IBS, hypertension, diverticulosis, hyperlipidemia Surgical History: appendectomy, tonsillectomy Smoking Status: Never smoker - Family History Maternal Family History: Family History (Last Reviewed 06/10/19 @ 14:12 by ROBERTO Thorne) Mother CAD (coronary artery disease) Grandmother CAD (coronary artery disease) Family History: Reports: Heart Disease Paternal Family History: Family History (Last Reviewed 06/10/19 @ 14:12 by ROBERTO Thorne) Mother CAD (coronary artery disease) Grandmother CAD (coronary artery disease) Family History: Reports: Unknown Review of Systems General: Denies: Chills, Fever, Sweats Eyes: Denies: Visual changes - bilaterally, Diplopia ENT: Denies: Rhinorrhea, Sore throat Cardiovascular: Denies: Chest pain, Palpitations Respiratory: Reports: Paroxysmal nocturnal dyspnea. Denies: Dyspnea, Cough, Dyspnea on exertion Gastrointestinal: Reports: Hematochezia. Denies: Abdominal pain, Nausea, Vomiting, Diarrhea, Melena Genitourinary: Denies: Dysuria, Hematuria, Frequency Musculoskeletal: Denies: Back pain, Extremity Pain Skin: Denies: Rash, Wounds Neurological: Denies: Headache, Weakness, Numbness Physical Exam Vital Signs/Narrative: Vital Signs Temp Pulse Resp BP Pulse Ox 07/11/19 13:02 98.1 F 73 18 133/68 H 98 Inital Vital Signs reviewed: Yes General: Well nourished, Well developed, No Acute Distress Head: Normocephalic, Atraumatic Eyes: Perrl, EOMI ENT: Moist mucous membranes, No rhinorrhea Neck: Supple, Nontender Cardiovascular: Regular rate, Regular rhythm, No murmurs Respiratory: No distress, CTA bilaterally, Chest nontender Abdomen: Soft, Nondistended, Normal bowel sounds, Tender - Suprapubic and left lower quadrant. Negative for: Guarding, Rebound tenderness Rectal: Guaiac positive, Nontender Back: Nontender, Normal Inspection Extremities: Nontender, No edema Skin: Normal color, No rash Neurological: Alert, Oriented x3, Cranial nerves II-XII grossly intact, Normal Strength, Normal Sensation Psychological: Normal affect, Normal Mood Diagnostic/Tx/Re-eval Clinical Impression(s) from Imaging Studies Abdomen/Pelvis CT 07/11/19 13:22 IMPRESSION: Small hepatic cysts. Scattered sigmoid diverticula. Electronically Signed: Ronal Day, at 15:37 EST , Service support , Laboratory Data 07/11/19 07/11/19 07/11/19 14:15 14:15 14:15 WBC 7.8 RBC 4.16 L Hgb 11.6 L Hct 34.9 L MCV 83.9 MCH 27.9 MCHC 33.2 RDW Std Deviation 39.6 RDW Coeff of Taylor 13.0 Plt Count 244 MPV 10.5 Immature Gran % (Auto) 0.100 Neut % (Auto) 62.3 Lymph % (Auto) 25.0 Mcdowell % (Auto) 8.1 Eos % (Auto) 3.6 Baso % (Auto) 0.9 Absolute Neuts (auto) 4.8 Absolute Lymphs (auto) 1.94 Nucleated RBC % 0 PT 13.0 INR 1.0 Sodium 140 Potassium 3.9 Chloride 109 H Carbon Dioxide 26.0 Anion Gap 5 BUN 23 H Creatinine 1.42 H Estim Creat Clear Calc 24.99 Est GFR (MDRD) Af Amer 46 L Est GFR (MDRD) Non-Af 38 L BUN/Creatinine Ratio 16.2 Glucose 84 Calcium 8.4 L Total Bilirubin 0.20 AST 20 ALT 27 Alkaline Phosphatase 98 Total Protein 6.8 Albumin 3.3 Globulin 3.5 Albumin/Globulin Ratio 0.9 Lipase 92 - Medical Decision Making Patient evaluated for report of GI bleeding x1 today. She another episode about 3 weeks ago that resolved spontaneously. Again it was only one time. Patient is Hemoccult positive for stool. She has no signs of obvious hemorrhoids or blood in her stool. Her stool is brown. She appears nontoxic in no acute distress. She is orthostatic negative. Her hemoglobin is at her baseline. She is not have a significantly elevated BUN consistent with an upper GI bleed. I think patient is a good candidate for outpatient follow-up. Discussed with surgery on-call, Dr. Vines, who will arrange for her to be seen in the office on Sunday at 9 AM. Patient is informed of this. I also discussed with patient's PCP to notify her of the patient's ER visits and need for outpatient follow-up. Patient is counseled on signs and symptoms requiring return to the emergency room. Patient verbalizes agreement and understand this plan. Patient discharged home in stable and improved condition. ED Disposition - Plan for ED Patient: Disposition: Home or Assisted Living Diagnosis: GI bleed Instructions: RECTAL BLEED, Stable Referrals: Mamie Mendez MD [Primary Care Provider] - Lori Napier PA-C [ALLIED HEALTH PROFESSIONAL] - (Appoimtent on Sunday07/14/19 at 9AM) Additional Instructions: Return to the emergency room if you develop worsening bleeding, worsening abdominal pain, lightheadedness or dizziness. Please follow-up with Lori Marcano for evaluation for need for colonoscopy on Sunday morning at 9 AM.
[2019-07-11 14:33] LABS: Absolute Lymphocyte Count 1.94 X10^3/uL (0.83-4.51); Absolute Neutrophil Count 4.8 X10^3/uL (2.0-7.7); Basophil# 0.07 X10^3/uL; Basophil% 0.9 % (0-1); Eosinophil# 0.28 X10^3/uL; Eosinophils% 3.6 % (0-5); Hematocrit 34.9 % (37-47); Hemoglobin 11.6 g/dL (12.0-15.0); Lymphocyte # 1.94 X10^3/ul (4.0); Mean Corp Hgb Conc 33.2 g/dL (32-36); Mean Corpuscular Hgb 27.9 pg (27.0-32.0); Mean Corpuscular Volume 83.9 fL (81-99); Mean Platelet Vol. 10.5 fl (6.2-12.0); Monocyte# 0.63 X10^3/uL; Monocyte% 8.1 % (0-10); NRBC Flagged by Analyzer 0 % (0-5); Neutrophil # 4.83 X10^3/uL (2.7-7.7); Neutrophil % 62.3 % (47-70); Platelet Count 244 K/mm3 (150-450); RBC Distribution Width SD 39.6 fl (35.1-43.9); Red Blood Count 4.16 M/mm3 (4.2-5.4); White Blood Count 7.8 K/mm3 (4.4-11.0)
[2019-07-11 14:47] LABS: BUN 23 mg/dL (7-18); Creatinine, Serum 1.42 mg/dL (0.55-1.02); Estimated Creatinine Clearance 24.99 ml/min; Glucose 84 mg/dL (74-106)
[2019-07-11 14:48] LABS: ALB/GLOB Ratio 0.9 RATIO (0.9-2.4); AST(SGOT) 20 U/L (15-37); Alanine Aminotransfer ALT/SGPT 27 U/L (13-56); Albumin, Serum 3.3 g/dL (3.2-5.0); Alkaline Phosphatase 98 U/L (45-117); Anion Gap 5 (5-15); BUN/Creat Ratio 16.2 RATIO (10-20); Calcium,Total 8.4 mg/dL (8.5-10.1); Chloride 109 mmol/L (98-107); EST Glomerular Filtration Rate 38 mL/min (>60); Est Glom Filt Rate - Afr Amer 46 mL/min (>60); Globulin 3.5 g/dL (2.2-4.2); Lipase 92 U/L (73-393); Potassium 3.9 mmol/L (3.5-5.1); Protein, Total 6.8 g/dL (6.4-8.2); Sodium Level 140 mmol/L (136-145)
[2019-07-11 16:16] VITALS: BP 138/71; BP 152/76; BP 155/66; PULSE 70; PULSE 79; PULSE 80
[2019-07-11 16:22] VITALS: BP 155/66; PULSE 70; RESP 16; O2SAT 97
[2019-07-11 17:24] VITALS: RESP 16
== END 2019-07-11 17:24 | disposition home or self-care (01) ==
PROVIDERS: Emergency Provider Emergency Medicine; PCP Internal Medicine
DX: K92.1 Melena (principal); K57.30 Diverticulosis of large intestine without perforation or abscess without bleeding; E78.5 Hyperlipidemia, unspecified; I10 Essential (primary) hypertension; I25.10 Atherosclerotic heart disease of native coronary artery without angina pectoris; Z95.5 Presence of coronary angioplasty implant and graft; Z79.02 Long term (current) use of antithrombotics/antiplatelets; Z79.899 Other long term (current) drug therapy
CPT/HCPCS: 74177; 80053; 82274; 83690; 85025; 85610; 99285; A4216

== ENCOUNTER 2020-05-31 11:46 | Emergency (ER) | payer MEDICARE, OTHER, SELFPAY ==
[2019-08-12 15:03] VITALS: BMI 29.6
[2020-05-31 11:48] VITALS: BP 136/73; PULSE 70; RESP 18; TEMP 36.8; O2SAT 99; BMI 27.7
--- NOTE | 2020-05-31 12:08 | RAD_ITS ---
STUDY: X-RAY CHEST REASON FOR EXAM: Female, 79 years old. CP AND BACK PAIN TECHNIQUE: Single AP portable view of the chest. COMPARISON: Comparison is made with prior study dated 05/21/2019. FINDINGS: EKG electrodes are seen. Focal infiltrate is seen in the right infrahilar region. Follow-up is recommended. There is no demonstrated pleural abnormality. Normal size heart. Normal mediastinum and eric. Normal visualized pulmonary arteries. There is atherosclerotic calcification of the aortic arch with tortuosity. There are diffuse degenerative changes of the visualized thoracic spine. Healed fracture of the left humeral neck. There is no demonstrated abnormality of the visualized soft tissue structures of the upper abdomen. RAD/Chest 1 View (Portable) IMPRESSION: Focal right infrahilar infiltrate. Electronically Signed: Ronal Day, at 14:11 EST , Service support ,
--- NOTE | 2020-05-31 12:08 | RAD_ITS ---
STUDY: X-RAY - CERVICAL SPINE REASON FOR EXAM: Female, 79 years old. NECK AND BACK PAIN. NUMEROUS ATTEMPTS MADE ON ODONTOID VW. TECHNIQUE: 3 view(s) of the cervical spine were obtained. COMPARISON: None FINDINGS: Normal cervical lordosis. There is multi-level endplate spondylosis. There is multi-level degenerative disc disease with multilevel disc space narrowing. The soft tissue structures are unremarkable. RAD/Cerv Spine 2 or 3 Views IMPRESSION: Degenerative changes of the spine. Electronically Signed: Jose Bocanegra MD at 14:04 EST Tel , Service support ,
--- NOTE | 2020-05-31 12:08 | ED.DCSUM_ITS ---
History of Present Illness Chief Complaint: Back Informant: Patient Onset: Days - 2 Context: - - awoke w/ the pain Timing: Continuous Quality: aching/sharp Location: left lower posterior neck and shoulder blade-area Current Severity: Mild Maximum Severity: Severe Worsened by: unsure Relieved by: nothing she has tried Associated Symptoms: brief sharp radiating pain down LUE dorsum to the index f MCPJ. Narrative: Patient states he woke up with this neck and upper left back pain 2 days ago, it has been persistent and unrelenting. Occasionally, she gets a severe sharp pain down the dorsum of her left upper extremity to the index finger, but only stops at the base of it. She does not feel it in the any other fingers. This pain is very brief and not present at the current time. She called her doctor about it because she wanted some medicine to stop the pain, and she was referred to the emergency department for cardiac work-up because she has a history of heart disease with 5 prior stents being placed, the patient admits that she does not have chest pain currently but has never had chest pain with her heart disease, and often has back pain. She does not think this feels the same as her prior heart pain. She denies any numbness or tingling or weakness in any extremity. She denies any problems into her legs, no problems walking today, no bowel or bladder dysfunction. She denies any recent injury. No shortness of breath, r ecent illness, or abdominal symptoms although she states that since she has been in so much pain she has had trouble sleeping and had a decreased appetite as a result. - Past Medical History (1) Atherosclerosis of [place] coronary artery of [place] heart without angina pectoris Status: Chronic Comment: PCI-TAMMY-ISR Prox RCA 3.0 x 12 mm Elunir 05/22/18 PCI-TAMMY to ISR Mid LAD using Resolute Integrity 2.5 x 12 mm 08/13/2017; PTCA and TAMMY to RCA 03/09/[address] Ortez @ [facility]; PTCA and TAMMY to mid LAD 09/26/[address] Chilel at [facility]; Cutting Balloon and TAMMY to Ostial RCA 08/12/2013 @ [facility] per Dr. Godinez (2) Carotid artery disease Status: Chronic (3) Essential (primary) hypertension Status: Chronic (4) Intermittent claudication Status: Chronic (5) Pure hypercholesterolemia Status: Chronic (6) History of coronary artery stent placement Status: Resolved Comment: PCI-TAMMY-ISR Prox RCA 3.0 x 12 mm Elunir 05/22/18; PCI-TAMMY to ISR Mid LAD w/ Resolute Integrity 2.5 x 12 mm 08/13/2017; TAMMY to RCA 03/09/2011; TAMMY to mid LAD 09/26/12; Cut[place] Balloon and TAMMY to Ostial RCA 08/12/2013; DAG-BPX-KBS-Mid LAD w/ 3.0 x 16 mm Synergy Stent 05/22/19 Past Medical History - Allergies and Home Meds Allergies/Adverse Reactions: Allergies DEIRDRE Inhibitors Allergy (Verified 05/31/20 11:47) Unknown ARB-Angiotensin Receptor Antagonist Allergy (Verified 05/31/20 11:47) Unknown atorvastatin calcium [From Lipitor] Allergy (Verified 05/31/20 11:47) Unknown pravastatin [From Pravachol] Allergy (Verified 05/31/20 11:47) Unknown Primary Care Physician: Mamie Mendez MD [Primary Care Provider] - 3-5 Days Doctors: Poonam - purvi Surgical History: appendectomy, tonsillectomy Lives: Alone Smoking Status: Never smoker - Family History Maternal Family History: Family History (Last Reviewed 08/12/19 @ 15:[address] Enrique Roach MD) Mother CAD (coronary artery disease) Grandmother CAD (coronary artery disease) Family History: Reports: Heart Disease Paternal Family History: Family History (Last Reviewed 08/12/19 @ 15:[address] Enrique Roach MD) Mother CAD (coronary artery disease) Grandmother CAD (coronary artery disease) Family History: Reports: Unknown Review of Systems General: Denies: Chills, Fever, Sweats Eyes: Denies: Visual changes - bilaterally, Diplopia ENT: Denies: Rhinorrhea, Sore throat Cardiovascular: Denies: Chest pain, Palpitations Respiratory: Reports: Cough - Mild, rare, improved compared with 1 month ago but persistent. Denies: Dyspnea, Dyspnea on exertion Gastrointestinal: Denies: Abdominal pain, Nausea, Vomiting, Diarrhea, Melena, Hematochezia Genitourinary: Denies: Dysuria, Hematuria, Frequency Musculoskeletal: Reports: Neck pain, Back pain, Extremity Pain. Denies: Myalgias, Swelling Skin: Denies: Rash, Wounds Neurological: Denies: Headache, Weakness, Numbness Physical Exam Vital Signs/Narrative: Vital Signs Temp Pulse Resp BP Pulse Ox 05/31/20 11:48 98.3 F 70 18 136/73 H 99 Inital Vital Signs reviewed: Yes General: Well nourished, Well developed, No Acute Distress Head: Normocephalic, Atraumatic Eyes: Perrl, EOMI ENT: Moist mucous membranes, No rhinorrhea Neck: Supple, Nontender, No lymphadenopathy Cardiovascular: Regular rate, Regular rhythm, No murmurs Respiratory: No distress, CTA bilaterally, Chest nontender Abdomen: Soft, Nontender, Nondistended, Normal bowel sounds. Negative for: Pulsatile mass Back: Nontender, Normal Inspection. Negative for: CVA tenderness Extremities: Nontender - Including left upper extremity., No edema, - - Bilateral equal radial 2+/4 pulses. Negative for: Calf Tenderness Skin: Normal color, No rash, No Trauma Neurological: Alert, Oriented x3, Cranial nerves II-XII grossly intact, Normal Strength, Normal Sensation, Normal Gait Psychological: Normal affect, Normal Mood Diagnostic/Tx/Re-eval Chest X-Ray - ED: 1 View, Read by ED Physician, No Acute Disease, Chronic Changes Impressions Cervical Spine X-Ray 05/31/20 12:08 IMPRESSION: Degenerative changes of the spine. Electronically Signed: Jose Bocanegra MD at 14:04 EST Tel , Service support , Chest X-Ray 05/31/20 12:08 IMPRESSION: Focal right infrahilar infiltrate. Electronically Signed: Ronal Day at 14:11 EST , Service support , 05/31/20 12:08 Cerv Spine 2 or 3 Views [RAD] Stat Chest 1 View (Portable) [RAD] Stat Laboratory Results 05/31/20 05/31/20 12:50 12:50 WBC 5.1 RBC 4.23 Hgb 12.7 Hct 35.7 L MCV 84.4 MCH 30.0 MCHC 35.6 RDW Std Deviation 42.0 RDW Coeff of Taylor 14.0 Plt Count 160 MPV 11.3 Immature Gran % (Auto) 0.200 Neut % (Auto) 74.6 H Lymph % (Auto) 12.2 L Clay % (Auto) 10.8 H Eos % (Auto) 1.6 Baso % (Auto) 0.6 Absolute Neuts (auto) 3.8 Absolute Lymphs (auto) 0.62 L Nucleated RBC % 0 Sodium 140 Potassium 3.8 Chloride 109 H Carbon Dioxide 25.0 Anion Gap 6 BUN 14 Creatinine 1.15 H Estim Creat Clear Calc 30.86 Est GFR (MDRD) Af Amer 58 L Est GFR (MDRD) Non-Af 48 L BUN/Creatinine Ratio 12.2 Glucose 91 Calcium 8.7 Troponin I < 0.015 - Rhythm Strip Rhythm Strip: Sinus Rhythm Rate: 72 Ectopy: PAC(s) - EKG Initial EKG Interpretation: Sinus Rhythm, No Acute Injury Pattern, - - Occasional PACs Prior: Unchanged - Medical Decision Making Patient's cardiac work-up is basically negative and she has had 2 days of consistent discomfort. I do not think her neck and back pain is referred from her heart, but given that it is going down into 1 finger intermittently and down the dorsum of her left upper extremity, cervical radiculopathy and disc disease is also in the differential diagnosis. I obtained cervical spine x-rays, they are nonspecific and showed nothing focal, this is not rule that out. Also obtained a chest x-ray, it shows possible infiltrate right infrahilar according to the radiologist. The patient has had no symptoms of pneumonia, and has had no thoracic symptoms. Etiology of this is unknown. Atelectasis is in the differential diagnosis. I discussed options with the patient including CT of the chest, she prefers to leave and will return if worse. She states she had COVID-19 about 1 month ago. She states she seemed to get over it without any significant difficulty, she was never seen or had a chest x-ray. Since her symptoms are now worsening and have drastically improved, although she has a mild persistent cough that has not worsened, and I do not think she necessarily needs antibiotics at this time for only this incidental finding which likely has nothing to do with the current symptoms she presented to the ER for. She asked for something for pain, initially she declined something here but near discharge she requested it as well as a prescription. ED Disposition - Plan for ED Patient: Disposition: Home or Assisted Living Diagnosis: Neck pain, Cervical radiculopathy Instructions: ED Neck Pain, ED Radiculopathy, Cervical Prescriptions: Hydrocodone Bitart/Apap 5-325 [[place] 5MG-325MG] 1 tab PO Q4H PRN PRN 2 Days #10 tab PRN Reason: Pain Transmission Status: Received by [id number] Referrals: Mamie Mendez MD [Primary Care Provider] - 3-5 Days
--- NOTE | 2020-05-31 12:08 | EKG12_ITS ---
Test Reason : CP/BACK PAIN Blood Pressure : / mmHG Vent. Rate : 072 BPM Atrial Rate : 072 BPM P-R Int : 140 ms QRS Dur : 070 ms QT Int : 388 ms P-R-T Axes : 044 016 044 degrees QTc Int : 424 ms Sinus rhythm with Premature supraventricular complexes Low voltage QRS (Limb Leads) Confirmed by BRYCE BLACK, STEFANIE ([id number]), online content editor IBAN CANO ([id number]) on 06/02/2020 10:47:58 AM Referred By: BB/RODY Confirmed By:STEFANIE WU MD
[2020-05-31 13:07] LABS: Absolute Lymphocyte Count 0.62 X10^3/uL (0.83-4.51); Absolute Neutrophil Count 3.8 X10^3/uL (2.0-7.7); Basophil# 0.03 X10^3/uL; Basophil% 0.6 % (0-1); Eosinophil# 0.08 X10^3/uL; Eosinophils% 1.6 % (0-5); Hematocrit 35.7 % (37-47); Hemoglobin 12.7 g/dL (12.0-15.0); Lymphocyte # 0.62 X10^3/ul (4.0); Lymphocyte % 12.2 % (19-41); Mean Corp Hgb Conc 35.6 g/dL (32-36); Mean Corpuscular Volume 84.4 fL (81-99); Mean Platelet Vol. 11.3 fl (6.2-12.0); Monocyte# 0.55 X10^3/uL; Monocyte% 10.8 % (0-10); NRBC Flagged by Analyzer 0 % (0-5); Neutrophil # 3.78 X10^3/uL (2.7-7.7); Neutrophil % 74.6 % (47-70); Platelet Count 160 K/mm3 (150-450); Red Blood Count 4.23 M/mm3 (4.2-5.4); White Blood Count 5.1 K/mm3 (4.4-11.0)
[2020-05-31 13:25] LABS: Anion Gap 6 (5-15); BUN 14 mg/dL (7-18); BUN/Creat Ratio 12.2 RATIO (10-20); Calcium,Total 8.7 mg/dL (8.5-10.1); Chloride 109 mmol/L (98-107); Creatinine, Serum 1.15 mg/dL (0.55-1.02); EST Glomerular Filtration Rate 48 mL/min (>60); Est Glom Filt Rate - Afr Amer 58 mL/min (>60); Estimated Creatinine Clearance 30.86 ml/min; Glucose 91 mg/dL (74-106); Potassium 3.8 mmol/L (3.5-5.1); Sodium Level 140 mmol/L (136-145)
[2020-05-31 14:08] VITALS: BP 162/65; PULSE 77; RESP 19; O2SAT 97
[2020-05-31] MEDS: HYDROcodone Bitartrate/Apap 5/325 Tablet PO (15:22)
[2020-05-31 15:24] VITALS: BP 164/79; PULSE 81; RESP 19; O2SAT 98
== END 2020-05-31 16:18 | disposition home or self-care (01) ==
PROVIDERS: Emergency Provider Emergency Medicine; PCP Internal Medicine
DX: M54.12 Radiculopathy, cervical region (principal); I25.10 Atherosclerotic heart disease of native coronary artery without angina pectoris; I10 Essential (primary) hypertension; Z95.5 Presence of coronary angioplasty implant and graft
CPT/HCPCS: 71045; 72040; 80048; 84484; 85025; 93005; 99285

== ENCOUNTER 2021-06-21 13:13 | Emergency (ER) | payer MEDICARE, OTHER, SELFPAY ==
[2021-06-21 13:17] VITALS: BP 156/97; PULSE 86; RESP 16; TEMP 36.7; O2SAT 100; BMI 28.9
[2021-06-21 14:00] VITALS: BP 153/79; PULSE 74; RESP 15; O2SAT 100
--- NOTE | 2021-06-21 15:17 | EDS_ITS ---
HPI HPI - GI History of Present Illness Chief Complaint: GI Bleed Detail of Chief Complaint: Right red blood per rectum Informant: patient Abdominal Pain/Flank Pain Onset: Today Context: Sudden Onset Timing: Intermittent Nausea/Vomiting/Emesis GI Symptom: Negative for Nausea and Vomiting Diarrhea/Melena/Hematochezia GI Symptom: Positive for Hematochezia; Negative for Diarrhea and Melena Onset: Today Associated Symptoms Associated Symptoms: Negative for Dysuria, Frequency and Hematuria Narrative Narrative: Patient is an elderly woman who presents with bright red blood per rectum. She denies history of diverticulosis or diverticulitis. She denies history of peptic ulcer disease. She denies orthostatic symptoms. She denies maroon or black stool. She states she is having a bowel movement every hour. She denies bruising easily. She denies bleeding of her gums with brushing her teeth. Denies blood in her urine. She is not on anticoagulant or antiplatelet med. Prior similar symptoms: No Recent Illness/Hospitalization: No PFSH PFS Medical History Atherosclerosis of [place] coronary artery of [place] heart without angina pectoris Essential (primary) hypertension Intermittent claudication Pure hypercholesterolemia Stenosis of left carotid artery Home Medications calcium carbonate 500 mg PO BIDCM 05/21/19 [History Last Taken 05/21/19] cholecalciferol (vitamin D3) 1,000 unit PO DAILY 05/21/19 [History Last Taken 05/21/19] levothyroxine 75 mcg PO DAILY 05/21/19 [History Last Taken 05/21/19] nitroglycerin 0.4 mg sublingual tablet 0.4 mg SUBLINGUAL Q5M PRN #25 tab 05/15/20 [Rx Last Taken Unknown] amlodipine 5 mg tablet 5 mg PO DAILY #90 tab 08/18/20 [Rx Last Taken Unknown] aspirin 81 mg tablet,delayed release 81 mg PO DAILY #90 tab 08/18/20 [Rx Last Taken Unknown] colestipol 1 gram tablet 1 g PO BID #180 tab 03/28/21 [Rx Last Taken Unknown] esomeprazole magnesium 40 mg capsule,delayed release 40 mg PO DAILY cap 05/03/21 [History Last Taken Unknown] ezetimibe 10 mg tablet 10 mg PO DAILY 05/03/21 [History Last Taken Unknown] metoprolol tartrate 50 mg tablet 50 mg PO BID tab 05/03/21 [History Last Taken Unknown] multivitamin 1 tab PO DAILY 05/03/21 [History Last Taken Unknown] ticagrelor 90 mg tablet See Rx Instructions .ROUTE .COMPLEX #180 tab 05/09/21 [Rx Last Taken Unknown] Allergy/AdvReac Type Severity Reaction Status Date / Time DEIRDRE Inhibitors Allergy Unknown Verified 05/03/21 11:33 ARB-Angiotensin Receptor Allergy Unknown Verified 05/03/21 11:33 Antagonist atorvastatin calcium Allergy Unknown Verified 05/03/21 11:33 [From Lipitor] pravastatin [From Pravachol] Allergy Unknown Verified 05/03/21 11:33 Family History Mother CAD (coronary artery disease) Grandmother CAD (coronary artery disease) Surgical History History of appendectomy History of coronary artery stent placement (05/22/19) History of left heart catheterization (08/13/17) History of tonsillectomy Social History (Updated 06/21/21 @ 15:[address] Luis Lebron MD) household members: spouse Smoking Status: Never smoker alcohol intake: never substance use type: does not use caffeine: No ROS ROS ED Constitutional Constitutional ED: Denies chills, fever(s), subjective or sweats Cardiovascular Cardiovascular: Denies chest pain or palpitations Respiratory/Chest Respiratory/Chest: Denies cough, dyspnea or dyspnea on exertion Gastrointestinal Gastrointestinal: Denies abdominal pain, diarrhea, melena, nausea or vomiting Genitourinary Genitourinary ED: Denies hematuria Neurologic Neurologic: Denies paresthesias or weakness Hematologic/Lymphatic Hematologic/Lymphatic: Denies easy bleeding or easy bruising EXAM Physical Exam Const Vital Signs: 06/21/21 13:17 06/21/21 14:00 Temperature 98.0 F Temperature Source Temporal Pulse Rate 86 74 Respiratory Rate 16 15 Blood Pressure 156/97 H 153/79 H Blood Pressure Mean 116 103 Pulse Ox 100 100 Oxygen Delivery Method Room Air Airvo Positive well nourished and well developed General Appearance ED: well developed and NAD; Negative for pallor HEENT Reports moist mucous membranes normocephalic and atraumatic; Negative for tenderness Eyes PERRL and EOMs intact bilaterally General Eye ED: Negative for pale conjunctiva or scleral icterus Resp normal respiratory effort and clear to auscultation bilaterally Cardio regular rate, regular rhythm, S1 normal heart sound, S2 normal heart sound and no murmurs GI non-tender, non-distended and no masses GI Narrative: There is no fissures, fistulas or hemorrhoids noted. There is no tenderness on rectal exam. Stool is brown. There is no blood noted. There is no mucus noted. Auscultation: normoactive bowel sounds Palpation: soft Back/Spine Negative for no CVA tenderness Lumbar Spine / Lower Back: Negative for lumbar spinal tenderness Extremity full ROM General Extremety ED: Negative for edema General Extremity: Negative for edema Neuro CN's II-XII intact bilaterally Sensorium / Orientation: alert and oriented to person Psych mental status grossly normal and thought process normal Skin no wounds General Skin Exam: Negative for pallor Lesions: no lesions Rashes: no rashes MDM MDM MDM Narrative Medical decision making narrative: Since patient reports ported bright red blood per rectum and exam is unremarkable anoscopy was performed. There is irritation of the rectal mucosa noted. There is evidence of recent bleed hemorrhoid 7:00. There is no abnormality of the anal/rectal mucosa. There is brown stool noted above the scope. Since patient's bleeding is due to hemorrhoids this is a self-contained problem no laboratory tests were obtained or indicated. She was discharged home with appropriate home-going structures. Procedures Other Procedures Procedure(s): Anoscopy. Note documented under MDM. Discharge Plan Triage Chief Complaint: GI Bleed ED Provider: Luis Lebron Dx/Rx/DC Orders Clinical Impression: Bleeding external hemorrhoids Instructions: Treating Hemorrhoids: Self-Care Prescriptions: No Action esomeprazole magnesium 40 mg capsule,delayed release(DR/EC) 40 mg PO DAILY RF: 0 multivitamin Tablet 1 tab PO DAILY RF: 0 metoprolol tartrate 50 mg tablet 50 mg PO BID RF: 0 ezetimibe [Zetia] 10 mg tablet 10 mg PO DAILY RF: 0 calcium carbonate 500 MG tablet 500 mg PO BIDCM RF: 0 cholecalciferol (vitamin D3) 1,000 UNIT tablet 1,000 unit PO DAILY RF: 0 levothyroxine 75 MCG tablet 75 mcg PO DAILY RF: 0 nitroglycerin 0.4 mg tablet, sublingual 0.4 mg SUBLINGUAL Q5M PRN (Reason: Chest Pain) Qty: 25 RF: 3 amlodipine 5 mg tablet 5 mg PO DAILY Qty: 90 RF: 3 aspirin 81 mg tablet,delayed release (DR/EC) 81 mg PO DAILY Qty: 90 RF: 3 colestipol 1 gram tablet 1 g PO BID Qty: 180 RF: 3 Brilinta 90 mg tablet See Rx Instructions .ROUTE .COMPLEX Qty: 180 RF: 3 Primary Care Provider: Mamie Mendez Referrals: Mamie Mendez MD [Primary Care Provider] - 1 Week if not improving Disposition Disposition: Home, Self Care
[2021-06-21 15:26] VITALS: BP 131/72; PULSE 64; RESP 16; O2SAT 98
== END 2021-06-21 15:27 | disposition home or self-care (01) ==
PROVIDERS: Emergency Provider Emergency Medicine; PCP Internal Medicine; Visit Provider Emergency Medicine
DX: K64.5 Perianal venous thrombosis (principal); I25.10 Atherosclerotic heart disease of native coronary artery without angina pectoris; I10 Essential (primary) hypertension; E78.00 Pure hypercholesterolemia, unspecified; Z79.82 Long term (current) use of aspirin; Z79.899 Other long term (current) drug therapy
CPT/HCPCS: 46600; 99282

== ENCOUNTER 2021-11-29 08:26 | Emergency (ER) | payer MEDICARE, OTHER, SELFPAY ==
[2021-11-29 08:28] VITALS: BP 151/60; PULSE 73; RESP 17; TEMP 36.1; O2SAT 98; BMI 28.0
--- NOTE | 2021-11-29 08:57 | EDS_ITS ---
HPI History of Present Illness HPI Narrative: Patient presents with injury to her right elbow and forearm that occurred yesterday. Patient states she fell yesterday. Patient states she tripped and fell. Patient denies any syncope. Patient states she landed on her right arm. Patient states her pain is worse with certain movements. Patient describes her pain as sharp and aching. Patient denies any paresthesias or weakness. Patient states she did have some nausea this morning but denies any vomiting. Patient states that nausea has resolved. Patient denies any other injuries. Patient denies any head injury or loss of consciousness. Chief Complaint: Upper Extremity Injury Informant: patient Occured/Mechanism Mechanism/Context: Yes fall Onset/Context/Timing Onset: Yesterday Context: Sudden Onset Timing: Continuous Quality of Pain: Sharp and Aching Location: Right elbow Worsened by: Movement Relieved by: Rest Associated Symptoms Associated Symptoms: Negative for Parasthesia, Weakness or Loss of Funtion PFSH [facility] Medical History Atherosclerosis of [place] coronary artery of [place] heart without angina pectoris Essential (primary) hypertension Intermittent claudication Pure hypercholesterolemia Stenosis of left carotid artery Home Medications calcium carbonate 500 mg calcium (1,250 mg) tablet 500 mg PO BIDCM supplement 05/21/19 [History Last Taken 05/21/19] cholecalciferol (vitamin D3) 25 mcg (1,000 unit) tablet 1,000 unit PO DAILY supplement 05/21/19 [History Last Taken 05/21/19] levothyroxine 75 mcg tablet 75 mcg PO DAILY thyroid 05/21/19 [History Last Taken 05/21/19] amlodipine 5 mg tablet 5 mg PO DAILY #90 tabs 08/18/20 [Rx Last Taken Unknown] aspirin 81 mg tablet,delayed release 81 mg PO DAILY #90 tabs 08/18/20 [Rx Last Taken Unknown] colestipol 1 gram tablet 1 g PO BID #180 tabs 03/28/21 [Rx Last Taken Unknown] esomeprazole magnesium 40 mg capsule,delayed release 40 mg PO DAILY 05/03/21 [History Last Taken Unknown] ezetimibe 10 mg tablet (Zetia) 10 mg PO DAILY 05/03/21 [History Last Taken Unknown] metoprolol tartrate 50 mg tablet 50 mg PO BID 05/03/21 [History Last Taken Unknown] multivitamin 1 tab PO DAILY 05/03/21 [History Last Taken Unknown] ticagrelor 90 mg tablet (Brilinta) See Rx Instructions .Route .COMPLEX #180 tabs 05/09/21 [Rx Last Taken Unknown] nitroglycerin 0.4 mg sublingual tablet 0.4 mg sublingual Q5M PRN Chest Pain #25 tabs 09/01/21 [Rx Last Taken Unknown] hydrocodone-acetaminophen 5-325mg 5mg-325mg 1 tab PO Q6H PRN PRN Pain 3 days #10 TABLETS 11/29/21 [Rx Last Taken Unknown] Allergy/AdvReac Type Severity Reaction Status Date / Time DEIRDRE Inhibitors Allergy Unknown Verified 11/29/21 08:27 ARB-Angiotensin Receptor Allergy Unknown Verified 11/29/21 08:27 Antagonist atorvastatin calcium Allergy Unknown Verified 11/29/21 08:27 [From Lipitor] pravastatin [From Pravachol] Allergy Unknown Verified 11/29/21 08:27 Family History Mother CAD (coronary artery disease) Grandmother CAD (coronary artery disease) Surgical History History of appendectomy History of coronary artery stent placement (05/22/19) History of left heart catheterization (08/13/17) History of tonsillectomy Social History household members: spouse Smoking Status: Never smoker alcohol intake: never substance use type: does not use caffeine: No ROS ROS ED Constitutional Constitutional ED: Denies chills or fever(s) Eyes Eyes: Denies blurry vision or change in vision ENT ENT ED: Denies rhinorrhea or sore throat Cardiovascular Cardiovascular: Denies chest pain or palpitations Respiratory/Chest Respiratory/Chest: Denies cough or dyspnea Gastrointestinal Gastrointestinal: Reports nausea; Denies vomiting Genitourinary Genitourinary ED: Denies dysuria or hematuria Musculoskeletal Musculoskeletal: Denies back pain or neck pain Integumentary Denies abscess or rash Neurologic Neurologic: Denies headache(s) or weakness Allergic/Immunologic Allergic/Immunologic ED: Denies mouth swelling or urticaria EXAM Physical Exam Const Vital Signs: 11/29/21 08:28 Temperature 97.0 F L Temperature Source Temporal Pulse Rate 73 Respiratory Rate 17 Blood Pressure 151/60 H Blood Pressure Mean 90 Pulse Ox 98 Oxygen Delivery Method Room Air Positive well nourished and well developed General Appearance ED: well developed and NAD HEENT Reports moist mucous membranes Neck full ROM Extremity Extremity Narrative: There is diffuse tenderness over the right elbow. There is tenderness over the radial head. Range of motion was limited in all motions of the right elbow secondary to pain. There is no obvious deformity noted. There is mild tenderness over the proximal forearm and distal humerus as well. Radial pulses are equal bilaterally. Sensation was intact to light touch in the radial, median, and ulnar areas. Strength is 5/5 in the radial, median, and ulnar areas. Neuro oriented x3, CN's II-XII intact bilaterally, moves all extremities, no focal motor deficits and no sensory deficits noted Sensorium / Orientation: alert Motor Exam: strength 5/5 throughout Psych mental status grossly normal MDM MDM MDM Narrative Medical decision making narrative: X-rays of the right elbow were obtained. There are 3 views. On my interpretation, there is a fracture of the radial head. There is a joint effusion. There is no other fracture noted. Radiologist also interpreted the x-ray and agrees. Patient was given a sling for comfort. Patient states she has an appoint with Dr. Evangelista tomorrow. Patient was instructed to continue with this appointment. Patient was given a prescription for [place]. Patient was given her first dose here. Patient was instructed to return if worse in any way. Patient understood and was agreeable with the plan. All questions were answered. Discharge Plan Triage Chief Complaint: Upper Extremity Injury ED Provider: Edu Burden Dx/Rx/DC Orders Clinical Impression: Closed fracture of head of right radius, Fall Instructions: ED Elbow Fracture Prescriptions: New hydrocodone-acetaminophen [hydrocodone-acetaminophen] 5-325 mg tablet 1 tab PO Q6H PRN PRN (Reason: Pain) 3 Days Qty: 10 0RF No Action esomeprazole magnesium 40 mg capsule,delayed release(DR/EC) 40 mg PO DAILY multivitamin Tablet 1 tab PO DAILY metoprolol tartrate 50 mg tablet 50 mg PO BID ezetimibe [Zetia] 10 mg tablet 10 mg PO DAILY calcium carbonate 500 MG tablet 500 mg PO BIDCM cholecalciferol (vitamin D3) 1,000 UNIT tablet 1,000 unit PO DAILY levothyroxine 75 MCG tablet 75 mcg PO DAILY amlodipine 5 mg tablet 5 mg PO DAILY Qty: 90 3RF aspirin 81 mg tablet,delayed release (DR/EC) 81 mg PO DAILY Qty: 90 3RF colestipol 1 gram tablet 1 g PO BID Qty: 180 3RF Brilinta 90 mg tablet See Rx Instructions .ROUTE .COMPLEX Qty: 180 3RF Dose Instruction: TAKE 1 TABLET TWICE A DAY Rx Instructions: TAKE 1 TABLET TWICE A DAY nitroglycerin 0.4 mg tablet, sublingual 0.4 mg SUBLINGUAL Q5M PRN (Reason: Chest Pain) Qty: 25 3RF Primary Care Provider: Mamie Mendez Referrals: Mamie Mendez MD [Primary Care Provider] - 1-2 Weeks Tony Evangelista DO [STAFF PHYSICIAN] - Keep [facility] appointment Disposition Disposition: Home, Self Care
--- NOTE | 2021-11-29 09:10 | RAD_ITS ---
STUDY: X-RAY - RIGHT ELBOW REASON FOR EXAM: Female, 81 years old. Injury/Pain TECHNIQUE: 5 view(s) of the elbow. COMPARISON: None. FINDINGS: An acute linear impaction fracture is present in the mid aspect of the radial head with depression and displacement of the lateral fragment/articular surface by a few millimeters. The fat pads of the proximal aspect of the elbow joint are elevated due to a joint effusion. The humerus and ulna are normal, as well as the remaining aspects of the proximal radial shaft. Normal radiocapitellar and ulnotrochlear articulations. The soft tissue structures are unremarkable. RAD/Elbow min 3 Views IMPRESSION: 1. Acute impaction fracture of the right radial head Electronically Signed: Zi Galindo MD at 9:33 EDT ,
== END 2021-11-29 10:42 | disposition home or self-care (01) ==
PROVIDERS: Emergency Provider Emergency Medicine; PCP Internal Medicine; Visit Provider Emergency Medicine
DX: S52.121A Displaced fracture of head of right radius, initial encounter for closed fracture (principal); W18.09XA Striking against other object with subsequent fall, initial encounter; I25.10 Atherosclerotic heart disease of native coronary artery without angina pectoris; I10 Essential (primary) hypertension; E78.00 Pure hypercholesterolemia, unspecified; Z79.82 Long term (current) use of aspirin; Z79.02 Long term (current) use of antithrombotics/antiplatelets; Z79.890 Hormone replacement therapy; Z79.899 Other long term (current) drug therapy; Z95.5 Presence of coronary angioplasty implant and graft
CPT/HCPCS: 73080; 99283

== ENCOUNTER 2021-12-29 10:00 | Outpatient (RCR) | payer MEDICARE, OTHER, SELFPAY ==
--- NOTE | 2021-12-21 16:01 | HP.PTEVAL ---
Patient's Visit Information LISETTE ENAMORADO is a 81 year old F referred to Physical Therapy by Dr. Tony Evangelista DO with a diagnosis of DISPLACED FRACTURE OF HEAD RIGHT RADIUS ,SUBS FOR CLOSED FOR FRACTURE. Date of Evaluation: 12/20/21 Physical Therapist: Felipe Wylie, PT, Cert MDT, OCS - Visit Plan Frequency: 2x /Week Duration: 6 Weeks Plan: PT INTERVETIONS PROM /AROM ELBOW WRIST ,FOREARM , STRENGTHENING ELBOW/WRIST/FORARM , AND MANUAL THERAPY CP/MHP - Subjective This 81 y/o female presents to physical therapy with right elbow fracture. Patient fell on ~ 3weeks ago on arms . Patient initially had pain ,but later in night elbow was very painful .Seen next day DR Evangelista did x-rays showed displaced fracture of head of radius ,initially provided to use sling when around a lot people. Patient seen 12/21 yesterday recommended PT. Patient denies paresthesia/tingling . Patient sleeping okay at night. Patient prescribed pain MEDS. Patient has difficulty with ADLS and housework tasks ,self hygiene with right UE . Patient states decrease ROM and strength with lack of extension. Patient condition affects QOL and and function. SOCAIL: . VOCATION: retired - Pain Right Elbow Pain Intensity (Out of 10): 5 Pain Intensity Range: 10 - Objective POSTURE: rounded shoulders head forward. NEURO: denies paresthesia /tingling. AROM: elbow extension 30 degrees ,flexion 110 degrees , wrist extension 75 degrees , wrist flexion 70,supination 85 degrees ,pronation 90 degrees pain ,. MMT( peak force) : right biceps 14,6,triceps 13.6,supination 6.7 ,pronation 7.2,wrist flexion 10.3,extension 9.8. PLASTICS FABRICATOR OR WELDER STRENGTH ( dynameter): right 15# ,left 25# - Balance/Special Test Scores Quick DASH Score: 68.1800 - Goals Goal 1:: Patient to be I with HEP for elbow Goal Time Frame: 4-6 Weeks Goal 2:: Patient to demonstrate 50 % improvement with function with right UE Goal Time Frame: 4-6 Weeks Goal 3:: Patient improve elbow extension 10 degrees and flexion 120 degrees to wash hair Goal Time Frame: 4-6 Weeks Goal 4:: Patient to improve peak force of elbow wrist by 10 to improve ADLS' with cleaning Goal Time Frame: 4-6 Weeks Goal 5:: Patient improve compounding technician strength to 20-25# to pharmacy picking tech coffee cup Goal Time Frame: 4-6 Weeks Goal 6:: Patient to improve quick dash by 5 points or > to improve function and QOL. Goal Time Frame: 4-6 Weeks - Rehabilitation Potential Physical Therapy Diagnosis: This patient fell and developed right radial head fracture with pain , ROM elbow ,weakness elbow/forearm, compounding technician strength thus impairs ADLS's and housework tasks thus benefit from skilled PT. Rehabilitation Potential: Good - Anticipated Interventions Patient/Client Instruction: Educate patient on: Condition, Plan of Care For the Purpose of:: To decrease pain, To increase ROM, To improve muscle performance and motor function, To improve ability to perform ADL's, To increase tolerance to activity/condition/position, To improve ability of physical actions for home/community/work/leisure, To improve health of tissue, To decrease soft tissue restriction, To increase flexibility/ROM, To assume or resume ADL's, To improve tolerance to ADL's Therapeutic Exercise to Include: Strength training, Passive ROM, Active ROM Comment: WRIST/FORARM/ELBOW For the Purpose of:: To decrease pain, To increase ROM, To improve muscle performance and motor function, To improve ability to perform ADL's, To increase tolerance to activity/condition/position, To improve performance and independence with ADL's, To improve ability of physical actions for home/community/work/leisure, To improve health of tissue, To decrease soft tissue restriction, To increase flexibility/ROM, To improve tolerance to ADL's Manual Therapy Techniques to Include: Passive ROM, Soft tissue mobilization For the Purpose of:: To decrease pain, To increase ROM, To improve health of tissue, To decrease soft tissue restriction, To increase flexibility/ROM Thank you for the opportunity to evaluate your patient. For Medicare and Medicare HMO plans, please review the plan of care and approve it. It will need to be FAXED BACK to us at [phone] for Medicare purposes. For Medicare only, by signing this I certify the plan of care. Please let me know if there are questions or concerns regarding this plan of care. Physician Signature: Date:
--- NOTE | 2022-05-30 09:59 | HP.PT.NRP ---
LISETTE ENAMORADO was seen in my office for initial evaluation on 12/20/21. The following Plan of Care was established for this patient: Initial Frequency: 2x /Week Initial Duration: 6 Weeks Patient/Client Instruction: Educate patient on: Condition, Plan of Care For the Purpose of:: To decrease pain, To increase ROM, To improve muscle performance and motor function, To improve ability to perform ADL's, To increase tolerance to activity/condition/position, To improve ability of physical actions for home/community/work/leisure, To improve health of tissue, To decrease soft tissue restriction, To increase flexibility/ROM, To assume or resume ADL's, To improve tolerance to ADL's Therapeutic Exercise to Include: Strength training, Passive ROM, Active ROM For the Purpose of:: To decrease pain, To increase ROM, To improve muscle performance and motor function, To improve ability to perform ADL's, To increase tolerance to activity/condition/position, To improve performance and independence with ADL's, To improve ability of physical actions for home/community/work/leisure, To improve health of tissue, To decrease soft tissue restriction, To increase flexibility/ROM, To improve tolerance to ADL's Manual Therapy Techniques to Include: Passive ROM, Soft tissue mobilization For the Purpose of:: To decrease pain, To increase ROM, To improve health of tissue, To decrease soft tissue restriction, To increase flexibility/ROM This patient was last seen in our office . Pertinent comments regarding their Physical therapy will appear below: Patient was seen for PT for fracture elbow for HEP with ROM and strengthening ,thus is d/c At this point I will be discontinuing this patient from physical therapy. I would be happy to see this patient again in the future if found appropriate by the physician. Thank you! Felipe Wylie, PT, Cert MDT, OCS Balance/Gait/Functional tests - Balance/Special Test Scores Quick DASH Score: 15.0000
== END 2021-12-29 19:00 | disposition home or self-care (01) ==
LOC: PT 10:00
PROVIDERS: PCP Internal Medicine; Referring Provider Student in an Organized Health Care Education/Training Program; Visit Provider Student in an Organized Health Care Education/Training Program
DX: S52.121D Displaced fracture of head of right radius, subsequent encounter for closed fracture with routine healing (principal)
CPT/HCPCS: 97110; 97162

== ENCOUNTER → 2022-05-19 | Outpatient (CLI) | payer MEDICARE, OTHER, SELFPAY ==
[2022-05-19 09:39] LABS: AST(SGOT) 19 U/L (15-37); Alanine Aminotransfer ALT/SGPT 25 U/L (13-56); Albumin, Serum 3.6 g/dL (3.2-5.0); Alkaline Phosphatase 100 U/L (45-117); Bilirubin, Direct 0.14 mg/dL (0.00-0.30); Cholesterol 199 mg/dL (200); Globulin 3.7 g/dL (2.2-4.2); High Density Lipoprotein 48 mg/dL; Protein, Total 7.3 g/dL (6.4-8.2); Triglycerides 141 mg/dL; Very Low Density Lipoprotein 28 mg/dL (5-40)
== END | disposition home or self-care (01) ==
PROVIDERS: PCP Internal Medicine; Referring Provider Physician Assistant Medical; Visit Provider Physician Assistant Medical
DX: I25.10 Atherosclerotic heart disease of native coronary artery without angina pectoris (principal); I10 Essential (primary) hypertension; E78.00 Pure hypercholesterolemia, unspecified
CPT/HCPCS: 36415; 80061; 80076

== ENCOUNTER 2022-08-10 12:00 | Outpatient (RCR) | payer MEDICARE, OTHER, SELFPAY ==
--- NOTE | 2022-07-17 12:22 | HP.PTEVAL ---
Patient's Visit Information LISETTE ENAMORADO is a 82 year old F referred to Physical Therapy by Dr. Avni Casillas MD with a diagnosis of CERVICAL STENOSIS. Date of Evaluation: 07/17/22 Physical Therapist: Jahaira Estes PT, Cert MDT - Visit Plan Frequency: 2-3x /Week Duration: 4-6 Weeks Plan: US X 6-8 VISITS. FURTHER INSTRUCTION IN PROPER POSTURE CONTROL AND WORK STATION ERGONOMINCS. POSTURAL STRETCHING AND STRENGTHENING. DIONNE UE ROM, STRETCHING AND STRENGTHENING. HEP AND GYM EX INSTRUCTION. - Subjective Diagnosis: CERVICAL STENOSIS. Work/Leisure: RETIRED. Disability: NO. Present symptoms: R UE ARM TINGLING TO HAND. UPPER BACK PAIN. NECK/UPPER BACK PAIN. ONCE IN AWHILE THE LEFT UE TINGLES TOO. I GET A CRAMP UNDER RIGHT SHLD BLADE AND SOMETIMES UNDER L SHLD BLADE TOO. Present since: ABOUT A YEAR. Getting better, getting worse or staying the same: GETTING WORSE. Pain Scale: Worst - 5/10 Least - 0/10. Currently: 06/20. Commenced as a result of: NO APPARENT REASON OTHER THAN PROLONGED LOOKING AT COMPUTER. Symptoms at onset: TINGLING IN R ARM AND SHLD. Worse: LOOKING UP AT COMPUTER SCREEN. Better: LOOKING DOWN. Disturbed sleep: NOT SURE - STATES SHE HAS A TERRIBLE TIME SLEEPING BUT ISN'T SURE IF THIS IS EFFECTING SLEEP. Previous history/Previous treatment: NO NECK SURGERY. NO NECK INJECTIONS. NO SHLD SURGERY. PATIENT REPORTS THAT MANY MANY YEARS AGO SHE HAD INJECTIONS IN HER R SHLD FOR ROTATOR CUFF PROBLEMS. This episode: CONSULT WITH DR. CASILLAS. (PATIENT REPORTS SHE TOLD DR. CASILLAS SHE DID NOT WANT ANY INJECTIONS OR SURGERY AND SHE WILL LIVE WITH THE PAIN IF SHE HAS TO). PT CONSULT. NO PAIN MGMT CONSULT. Dizziness: NO. Tinnitis: NO. Nausea: NO. Shortness of Breath: NO. Difficulty Swollowing: NO. Gait: PATIENT DENIES ANY NEW DIFFICULTY WALKING I HAVE STRONG LEGS AND DOES NOT WALK WITH ANY ASSISTIVE DEVICES. Accidents: NO. Unexplained weight loss: NO. Imaging: RECENT NECK X-RAYS AT ANOTHER FACILITY BUT ALSO FOUND NECK X-RAYS FROM MAY 2020 IN [facility] EMR: STUDY: X-RAY - CERVICAL SPINE. REASON FOR EXAM: Female, 79 years old. NECK AND BACK PAIN. NUMEROUS. ATTEMPTS MADE ON ODONTOID VW. TECHNIQUE: 3 view(s) of the cervical spine were obtained. COMPARISON: None. . FINDINGS: Normal cervical lordosis. There is multi-level endplate spondylosis. There is multi-level degenerative disc disease with multilevel disc space. narrowing. The soft tissue structures are unremarkable. . RAD/Cerv Spine 2 or 3 Views. IMPRESSION: Degenerative changes of the spine. . Electronically Signed: Jose Bocanegra MD. . PMH/Recent major surgery: ASSYMPTOMATIC THICKENING OF esophagus - recent dx and plans to discuss with her PCP Dr. Vanessa martin. SEE FURTHER MEDICAL HISTORY BELOW. SEPTEMBER 2021 R ELBOW FX FROM FALL AFTER A STORM. HEART DZ WITH STENTS. HYPOTHYROIDISM, HTN. SOCIAL - LIVES ALONE IN ONE STORY HOME WITH BASEMENT AND LAUNDRY IN BAS[place]. 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 OTHER: END OF SESSION PATIENT REPORTS SHE FELL YESTERDAY. STATES SHE WAS BRINGING A DOG IN AND IT PULLED HER AND SHE FELL IN THE DOORWAY. GOT UP ON HER OWN. DENIES NEEDING TO SEE A DOCTOR BECAUSE OTHER THAN FEELING A LITTLE STIFF SHE IS FINE. 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 - Objective Sitting Posture/Standing Posture: POOR. FH. SHLD'S. NO TORTICOLLIS. Active Correction of posture: BETTER. REDUCES R UE TINGLING. Other Observations: INDEP GAIT AND TRANSFERS. Sensory deficit: DIONNE UE LIGHT TOUCH SENSATION GROSSLY INTACT AND SYMMETRICAL. ROM deficit: DIONNE LIMITED SHLD ROM ALL PLANES BY APPOX 30% BUT LEFT SHLD ER IS ESPECIALLY LIMITED AND PATIENT IS ONLY ABLE TO ER L SHLD TO NEUTRAL. PATIENT DENIES INCREASED SHLD PAIN WITH ROM TESTING ALL PLANES. Motor deficit: R BLUE PRINTS TRIMMER STRENGTH 40 LBS AND LEFT 35 LBS. DIONNE SHLD STRENGTH GROSSLY 4-/5 IN WITH MMT'ING, ELBOWS 4/5. Reflexes: DIONNE UE DTR'S 2/3. Dural Signs: POSITIVE DIONNE UE'S. Cervical Mvmt Loss: Flex: NIL. Pro: NIL. Ext: MOD. Ret: RHONDA. RSB: MOD. LSB: MIN. R Rot: MOD. L Rot: MOD. PATIENT C/O INCREASED R UE TINGLING WITH WITH CERVICAL EXT, RETRACION AND R SB TESTING. PATIENT C/O NECK AND DIONNE SHLD PAIN WITH CERVICAL DIONNE ROTATION AND DIONNE SB TESTING. Postural strength: POOR. Palpation: NO ACUTE CERVICAL SPINE OR DIONNE SHLD PAIN BUT PATIENT WITH INCREASED MUSCLE TONE DIONNE CERVICAL MUSCULATURE. TREATMENT: NEUROMUSCULAR REEDUCATION - INTRO TO RETRAINING OF MVMT AND POSTURE FOR SITTING WITH USE OF LUMBAR SUPPORT IN SITTING AND PROPER WORK STATION SET UP AT COMPUTER. INSTRUCTED IN AVOIDANCE OF PERIPHERALIZATION OF SX'S WITH POSITION CHANGES. - Balance/Special Test Scores Oswestry Neck Score: 10 - Goals Goal 1:: DECREASE C/O NECK AND DIONNE UE SX'S (RIGHT UE IS WORSE THAN LEFT). Goal Time Frame: 4-6 Weeks Goal 2:: IMPROVE PERSONAL CARE, LIFTING, READING, TIME ON COMPUTER AND DRIVING FUNCTION. Goal Time Frame: 4-6 Weeks Goal 3:: INSTRUCT IN PROPHYLAXIS Goal Time Frame: 4-6 Weeks - Anticipated Interventions Patient/Client Instruction: Educate patient on: Condition, Plan of Care, Risk Factors For the Purpose of:: To improve self management Therapeutic Exercise to Include: Strength training, Body mechanics, Postural training, Flexibilty training, Neuromotor development, Scapular Strength/Stabilization For the Purpose of:: To decrease pain, To increase ROM, To improve muscle performance and motor function, To increase tolerance to activity/condition/position, To improve ability of physical actions for home/community/work/leisure Manual Therapy Techniques to Include: Soft tissue mobilization For the Purpose of:: To decrease pain, To improve nutrient delivery to tissue Cryotherapy (ice pack, ice massage): Yes Thermo therapy (hot pack): Yes Ultrasound (thermal/non thermal): Yes For the Purpose of:: To decrease pain, To improve nutrient delivery to tissue Thank you for the opportunity to evaluate your patient. For Medicare and Medicare HMO plans, please review the plan of care and approve it. It will need to be FAXED BACK to us at [phone] for Medicare purposes. For Medicare only, by signing this I certify the plan of care. Please let me know if there are questions or concerns regarding this plan of care. Physician Signature: Date:
--- NOTE | 2022-08-10 12:32 | HP.PTDCSUM_ITS ---
It has been my pleasure to treat LISETTE ENAMORADO referred by Dr. Avni Casillas MD, with the diagnosis of CERVICAL STENOSIS for a total of 6 visit(s). Discharge Date: Please see the following information for a summary of their discharge status. Subjective: I HAVE NOT HAD ONE PROBLEM SINCE LAST VISIT. I HAVEN'T BEEN AWAKEND AT NIGHT EITHER. I JUST HOPE IT STAYS THAT WAY. PATIENT REPORTS SHE PROBABLY DOESN'T NEED PT ANYMORE. STATES SHE HAS BEEN STICKING WITH HER EX'S AND PLANS TO CONTINUE. SHE STATES SHE HAS A [employer] AND [employer] PROGRAM THAT SHE PLANS TO RESUME. STATES SHE PULLED OUT BRICKS AND CLEANED OUT WEEDS, REPLACED BRICKS AND SHOVELED DIRT BACK ON THEM TO SECURE BRINKS LAST NIGHT. GOT BIKE OUT YESTERDAY TOO AND RODE IT UP AND DOWN THE ROAD A BIT. NECK Pain Intensity (Out of 10): 0 R UE Pain Intensity (Out of 10): 0 L UE Pain Intensity (Out of 10): 0 % Improvement: 100 Objective/Function: ALL GOALS MET. APPROPRIATE FOR D/C Goal 1:: DECREASE C/O NECK AND DIONNE UE SX'S (RIGHT UE IS WORSE THAN LEFT). Goal Progress: Goal Met Goal 2:: IMPROVE PERSONAL CARE, LIFTING, READING, TIME ON COMPUTER AND DRIVING FUNCTION. Goal Progress: Goal Met Goal 3:: INSTRUCT IN PROPHYLAXIS Goal Progress: Goal Met Plan: D/C TO INDEP EX. PATIENT AGREEABLE. If there are questions or concerns regarding this patient's physical therapy, please feel free to call me at [phone]. Thank you for the referral of this patient. Sincerely, Jahaira Estes, PT, Cert MDT Balance/Gait/Functional tests - Balance/Special Test Scores Oswestry Neck Score: 1
== END 2022-08-10 14:11 | disposition home or self-care (01) ==
LOC: PT 12:00
PROVIDERS: PCP Internal Medicine; Referring Provider Orthopaedic Surgery; Visit Provider Orthopaedic Surgery
DX: M48.02 Spinal stenosis, cervical region (principal)
CPT/HCPCS: 97035; 97112; 97140; 97162; 97164; 97530

== ENCOUNTER → 2023-01-02 | Outpatient (CLI) | payer MEDICARE, OTHER, SELFPAY ==
[2023-01-02 11:57] LABS: Anion Gap 5 (5-15); BUN 26 mg/dL (7-18); BUN/Creat Ratio 23.2 RATIO (10-20); Chloride 111 mmol/L (98-107); Creatinine, Serum 1.12 mg/dL (0.55-1.02); EST Glomerular Filtration Rate 49 mL/min (>60); Est Glom Filt Rate - Afr Amer 60 mL/min (>60); Glucose 81 mg/dL (74-106); Magnesium 2.3 mg/dL (1.6-2.6); Potassium 4.2 mmol/L (3.5-5.1); Sodium Level 142 mmol/L (136-145)
[2023-01-02 12:04] LABS: AST(SGOT) 14 U/L (15-37); Alanine Aminotransfer ALT/SGPT 18 U/L (13-56); Albumin, Serum 3.6 g/dL (3.2-5.0); Alkaline Phosphatase 106 U/L (45-117); Cholesterol 189 mg/dL (200); Globulin 3.6 g/dL (2.2-4.2); High Density Lipoprotein 46 mg/dL; Protein, Total 7.2 g/dL (6.4-8.2); Triglycerides 146 mg/dL; Very Low Density Lipoprotein 29 mg/dL (5-40)
== END | disposition home or self-care (01) ==
LOC: LAB 10:55
PROVIDERS: Internal Medicine Cardiovascular Disease; PCP Internal Medicine; Referring Provider Nurse Practitioner Family; Visit Provider Nurse Practitioner Family
DX: E78.00 Pure hypercholesterolemia, unspecified (principal); I65.22 Occlusion and stenosis of left carotid artery; R09.89 Other specified symptoms and signs involving the circulatory and respiratory systems
CPT/HCPCS: 36415; 80048; 80061; 80076; 83735

== ENCOUNTER → 2023-01-17 | Outpatient (CLI) | payer MEDICARE, OTHER, SELFPAY ==
--- NOTE | 2023-01-17 09:05 | ART_ITS ---
Reason For Study: Decreased Pedal Pulses Procedure A bilateral lower extremity continuous wave Doppler with analog waveform analysis,segmental pressures,and ankle brachial indexes without exercise. Left Segmental Pressures Left brachial= 134mmHg. Left posterior tibial artery = 147mmHg. Left dorsalis pedis artery = 134mmHg. Left digit = 79 mmHg. Right Segmental Pressures Right brachial= 133mmHg. Right posterior tibial artery = 149mmHg. Right dorsalis pedis artery = 153mmHg. Right digit = 82 mmHg. Indices The right ankle brachial index by the posterior tibial artery is 1.11. The right ankle brachial index by the dorsalis pedis is 1.14. The right digital-brachial index is 0.61. The left ankle brachial index by the posterior tibial artery is 1.10. The left ankle brachial index by the dorsalis pedis is 1.00. The left digital-brachial index is 0.59. VL/Lower Ext Art Exam w/o Exercis Interpretation Summary Right HERNAN 1.14, normal. Doppler/PVR waveforms of the right leg normal at rest. TBI and digit waveforms diminished, pedal/digit disease vs spasm Left HERNAN 1.1, normal. Doppler/PVR waveforms of the left leg normal at rest. TBI and digit waveforms diminished, pedal/digit disease vs spasm Ordering Physician: Obey Ballard Referring Physician: Mamie Mendez Performed By: Galilea Ballard RDARIELA/RVT
--- NOTE | 2023-01-17 09:05 | CDU_ITS ---
Reason For Study: Carotid Artery Disease Rt. Velocities/BP Lt. Velocities/BP Prox CCA 71/12 cm/sec. Prox CCA 88/19 cm/sec. Mid CCA 71/13 cm/sec. Mid CCA 106/23 cm/sec. Dist CCA 73/15 cm/sec. Dist CCA 98/19 cm/sec. Prox ICA 46/10 cm/sec. Prox ICA 283/50 cm/sec. Mid ICA 96/23 cm/sec. Mid ICA 212/38 cm/sec. Dist ICA 86/23 cm/sec. Dist ICA 92/25 cm/sec. Rt. ICA/CCA = 1.3. Lt. ICA/CCA = 2.7. Prox ECA 83 cm/sec. Prox ECA 214/9 cm/sec. Rt. Vert. 68/7 cm/sec. Lt. Vert. 49/14 cm/sec. Right Extracranial There is heterogeneous, irregular atherosclerotic plaque noted in the right common carotid artery. There is heterogeneous, irregular atherosclerotic plaque noted in the right internal carotid artery. The right internal carotid artery is very tortuous. There is intimal thickening but no significant atherosclerotic plaque noted in the right external carotid artery. Antegrade flow is noted in the right vertebral artery. Left Extracranial There is heterogeneous, irregular atherosclerotic plaque noted in the left common carotid artery. There is heterogeneous, irregular atherosclerotic plaque noted in the left internal carotid artery. The left internal carotid artery is very tortuous. There is intimal thickening but no significant atherosclerotic plaque noted in the left external carotid artery. Antegrade flow is noted in the left vertebral artery. Procedure Carotid Duplex 23157. This is a Carotid Duplex examination using B-mode, color flow and specral Doppler. Prelim given to Obey Ballard NP. Exam performed in department. VL/Carotid Duplex Ultrasound Interpretation Summary Mild (<50%) stenosis right extracranial internal carotid. Severe (>70%) stenosis left extracranial internal carotid. Patent and antegrade vertebrals bilaterally. Ordering Physician: Obey Ballard Referring Physician: Mamie Mendez Performed By: Galilea Ballard, MIKHAIL, RVT
== END | disposition home or self-care (01) ==
LOC: CVS 09:00
PROVIDERS: PCP Internal Medicine; Referring Provider Nurse Practitioner Family; Visit Provider Nurse Practitioner Family
DX: I65.22 Occlusion and stenosis of left carotid artery (principal); I73.9 Peripheral vascular disease, unspecified; R09.89 Other specified symptoms and signs involving the circulatory and respiratory systems
CPT/HCPCS: 93880; 93923

== ENCOUNTER → 2023-03-07 | Outpatient (CLI) | payer MEDICARE, OTHER, SELFPAY ==
[2023-03-07 12:55] LABS: Creatinine, Serum 1.08 mg/dL (0.55-1.02); EST Glomerular Filtration Rate 51 mL/min (>60); Est Glom Filt Rate - Afr Amer 62 mL/min (>60)
== END | disposition home or self-care (01) ==
LOC: LAB 12:00
PROVIDERS: PCP Internal Medicine; Referring Provider Physician Assistant; Visit Provider Physician Assistant
DX: I10 Essential (primary) hypertension (principal)
CPT/HCPCS: 36415; 82565

== ENCOUNTER → 2023-04-09 | Outpatient (CLI) | payer MEDICARE, OTHER, SELFPAY ==
--- NOTE | 2023-04-09 07:42 | CT_ITS ---
STUDY: CTA HEAD AND NECK WITH CONTRAST REASON FOR EXAM: Female, 82 years old. L ICA stenosis RADIATION DOSAGE (If Supplied By Facility): CTDIvol = ( 28.70 ) mGy, DLP = ( 1411.33 ) mGycm TECHNIQUE: CT angiography was performed with a multi-detector CT scanner. Data acquisition was obtained from the skull base through the vertex following intravenous administration of IV 100mL Isovue-370. MIP images were reconstructed from the axial data set. Post-processing of the angiographic images was performed, with multiplanar reformation and 3D reconstruction. Individualized dose optimization techniques were used for this CT. COMPARISON: No relevant priors. FINDINGS: Normal bilateral petrous carotid arteries. There is calcified plaque formation of the right cavernous carotid artery, without a cross-sectional luminal stenosis. There is calcified plaque formation of the left cavernous carotid artery, without a cross-sectional luminal stenosis. Normal right A1 segments of the anterior cerebral artery. Normal left A1 segments of the anterior cerebral artery. Normal intact anterior communicating artery (ACOM). Normal bilateral A2 segments of the anterior cerebral arteries. Normal right M1 and M2 segments of the middle cerebral arteries, with a normal M1 bifurcation. Normal left M1 and M2 segments of the middle cerebral arteries, with a normal M1 bifurcation. Normal right posterior communicating artery (PCOM). Normal left posterior communicating artery (PCOM). Normal bilateral vertebral arteries. Normal basilar artery with a normal basilar bifurcation. The visualized bilateral superior cerebellar (SCA) arteries are normal. Normal bilateral P1, P2 and visualized P3 segments of the posterior cerebral arteries. There is no demonstrated aneurysm of the [place]. Hyperostosis frontalis interna. Mild degree of cerebral atrophy with decreased attenuation in the periventricular distribution suggestive of a chronic small vessel disease. Findings suggestive of an old lacuna in the right basal ganglia. AORTIC ARCH: There is atherosclerotic calcific plaque formation of the aortic arch and great vessels arising from the aortic arch, without a hemodynamically significant stenosis. There is a normal origin of the brachiocephalic, left common carotid, and left subclavian arteries. Apparent origin of the right subclavian artery arising from the left subclavian artery. Heterogeneous appearance of the thyroid bilaterally. RIGHT CAROTID ARTERIES: Normal right common carotid artery (CCA). Normal right common carotid bulb. There is mild atherosclerotic plaque formation of the origin of the right internal carotid artery with less than 50% cross sectional diameter stenosis. Normal visualized cervical portion of the right internal carotid artery. Normal origin of the right external carotid artery (ECA). LEFT CAROTID ARTERIES: Normal left common carotid artery (CCA). Normal left common carotid bulb. There is moderate atherosclerotic plaque formation of the origin of the left internal carotid artery with an estimated stenosis of 50-69% stenosis. Normal visualized cervical portion of the left internal carotid artery. Normal origin of the left external carotid artery (ECA). VERTEBRAL ARTERIES: Tight stenosis at the origin of the left vertebral artery. CT/CTA Head AND Neck W/ Contrast IMPRESSION: 50-69% luminal narrowing at the origin of the left internal carotid artery caused by calcific plaques. Tight stenosis at the origin of the left vertebral artery. Electronically Signed: Ronal Day MD at 14:17 EDT ,
== END | disposition home or self-care (01) ==
LOC: CT 07:41
PROVIDERS: PCP Internal Medicine; Referring Provider Physician Assistant; Visit Provider Physician Assistant
DX: I65.22 Occlusion and stenosis of left carotid artery (principal)
CPT/HCPCS: 70496; 70498; Q9967

== ENCOUNTER 2023-07-13 17:33 | Emergency (ER) | payer MEDICARE, OTHER, SELFPAY ==
[2023-07-13 17:34] VITALS: BP 126/55; PULSE 66; RESP 14; TEMP 36.8; O2SAT 99; BMI 27.1
--- NOTE | 2023-07-13 17:54 | CT_ITS ---
EXAM: CT ABDOMEN AND PELVIS WITH INTRAVENOUS CONTRAST CLINICAL INDICATION: Blood in stool TECHNIQUE: Helically acquired images were obtained of the abdomen and pelvis with intravenous contrast. This CT exam was performed using one or more of the following dose reduction techniques: automated exposure control, adjustment of the mA and/or kV according to patient size, and/or use of iterative reconstruction technique. CONTRAST: IV 75mL Isovue-370 COMPARISON: 07/11/2019 FINDINGS: LOWER THORAX: There is a low-density mass in the left lower lobe compatible with a cyst which is stable. No cardiomegaly. No significant pericardial effusion. ABDOMEN: LIVER: Unremarkable. Homogeneous. No focal mass. GALLBLADDER AND BILE DUCTS: Unremarkable. No calcified gallstones. No gallbladder distention or wall edema. No intra- or extrahepatic biliary ductal dilation. PANCREAS: Unremarkable. No focal cystic or solid mass. SPLEEN: Unremarkable. Normal size without focal cystic or solid mass. ADRENALS: Unremarkable. No nodules. KIDNEYS AND URETERS: Unremarkable. Normal renal size and position. No hydronephrosis. STOMACH AND BOWEL: There is focal wall thickening of the distal transverse colon. No stomach or bowel distention. PELVIS: APPENDIX: No evidence of acute appendicitis. BLADDER: Unremarkable. REPRODUCTIVE: Unremarkable as visualized. No mass. ABDOMEN and PELVIS: INTRAPERITONEAL SPACE: Unremarkable. No ascites or other fluid collection. No free air. BONES/JOINTS: Unremarkable. No suspicious lytic or blastic abnormality. SOFT TISSUES: Unremarkable. No discrete abdominal or pelvic wall hernia. VASCULATURE: Unremarkable. Abdominal aorta is non-dilated. LYMPH NODES: Unremarkable. No enlarged lymph nodes. CT/Abdomen/Pelvis W IV Cont ONLY IMPRESSION: Focal area of wall thickening in the distal transverse colon which may be due to incomplete distention or possibly focal colitis. No other acute abnormalities are identified. Electronically Signed: Ismael Gu MD at 19:59 EST ,
[2023-07-13] MEDS: 0.9% Normal Saline (1000mL) 1,000 ML 150 ML IV (18:11)
--- OUTSIDE RECORDS SUMMARY | 2023-07-13 18:24 | XMS RPT_ITS | CCD ---
Author Name Unknown Address 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 Name Role Phone Vanessa BLACK, Mamie Primary Care Provider GANTA, MAMIE Primary Care Unavailable GANTA, MAMIE Attending Unavailable GANTA, MAMIE Primary Care Unavailable GANTA, MAMIE Referring Unavailable GANTA, MAMIE Primary Care Unavailable GANTA, MAMIE Referring Unavailable JILLIAN COULTER Attending Unavailable GANTA, MAMIE Primary Care Unavailable GANTA, MAMIE Primary Care Unavailable GANTA, MAMIE Attending Unavailable JILLIAN COULTER Referring Unavailable CLARENCE ZEE Attending Unavailable GANTA, MAMIE Primary Care Unavailable GANTA, MAMIE Primary Care Unavailable CHANELL GIVENS Attending Unavailable SHANNONELIZABETH Cárdenas Referring Unavailable GANTA, MAMIE Primary Care Unavailable SHANNON, ELIZABETH Laird Referring Unavailable GANTA, MAMIE Primary Care Unavailable GANTA, MAMIE Primary Care Unavailable SHANNON, ELIZABETH Laird Referring Unavailable GANTA, MAMIE Primary Care Unavailable SHANNON, ELIZABETH Laird Referring Unavailable GANTA, MAMIE Primary Care Unavailable ELIZABETH MACE Attending Unavailable CHANELL GIVENS Referring Unavailable VIRGILIO CUNNINGHAM Attending Unavailable GANTA, MAMIE Primary Care Unavailable GANTA, MAMIE Primary Care Unavailable GANTA, MAMIE Referring Unavailable Allergies Allergy Classification Reported Allergen(s) Allergy Type Date of Onset Reaction(s) Facility (20 sources) Lisinopril; Translations: [LISINOPRIL] Drug Allergy 06-30-2011 Cough [facility] (20 sources) oxybutynin; Translations: [OXYBUTYNIN CHLORIDE] Drug Allergy 02-24-2019 GI Upset [facility] Work Phone: Medications Current Medications Medication Drug Class(es) Dates Sig (Normalized) Sig (Original) predniSONE 10 mg oral tablet (2 sources) Start: 03-17-2022 End: 03-26-2022 predniSONE (DELTASONE) 10 mg tablet Take 4 tabs daily for 3 days, then 2 tabs daily for 3 days, then 1 tab daily for 3 days with food. 21 tablet 0 03/17/2022 03/26/2022 Active Completed/Discontinued Medications Medication Drug Class(es) Dates Sig (Normalized) Sig (Original) amLODIPine 5 mg oral tablet (20 sources) Dihydropyridine Calcium Channel Samantha Start: 04-04-2021 End: 06-12-2022 take 1 tablet by mouth once daily amLODIPine (NORVASC) 5 mg tablet Take 1 tablet by mouth once daily. 14 tablet 0 06/12/2022 Active Problems Active Problems Problem Classification Problem Date Documented Da te Episodic/Chronic Adjustment disorders (1 source) Grief finding; Translations: [Adjustment disorder with depressed mood] Chronic Anxiety disorders (20 sources) Generalized anxiety disorder; Translations: [Generalized anxiety disorder] 07-28-2019 Chronic Chronic kidney disease (20 sources) Chronic kidney disease stage 3; Translations: [CKD (chronic kidney disease) stage 3, GFR 30-59 ml/min] Onset: 9 06-27-2018 Chronic Chronic kidney disease (2 sources) Chronic kidney disease; Translations: [Stage 3b chronic kidney disease (HCC)] Onset: 9 Coronary atherosclerosis and other heart disease (20 sources) Coronary atherosclerosis; Translations: [Atherosclerotic heart disease of [place] coronary artery without angina pectoris] Onset: 0 10-12-2020 Chronic Disorders of lipid metabolism (20 sources) Hyperlipidemia; Translations: [Hyperlipidemia, unspecified] Onset: 3 09-17-2012 Chronic Diverticulosis and diverticulitis (20 sources) Diverticulosis of colon; Translations: [Diverticulosis of large intestine without perforation or abscess without bleeding] Onset: 9 06-16-2008 Chronic Esophageal disorders (1 source) Gastroesophageal reflux disease without esophagitis; Translations: [Gastro-esophageal reflux disease without esophagitis] Chronic Essential hypertension (20 sources) Essential hypertension; Translations: [Essential (primary) hypertension] 07-19-2015 Chronic Fracture of upper limb (1 source) Closed fracture of head of radius; Translations: [Nondisplaced fracture of head of right radius, sequela] Episodic Hypertension with complications and secondary hypertension (20 sources) 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; Translations: [Hypertensive chronic kidney disease with stage 1 through stage 4 chronic kidney disease, or unspecified chronic kidney disease] Onset: 2 10-26-2021 Chronic Occlusion or stenosis of precerebral arteries (20 sources) Bilateral stenosis of carotid arteries; Translations: [Occlusion and stenosis of bilateral carotid arteries] Onset: 9 04-10-2019 Chronic Osteoarthritis (20 sources) Degenerative joint disease involving multiple joints; Translations: [Polyosteoarthritis, unspecified] 08-02-2005 Chronic Other and ill-defined heart disease (20 sources) Diastolic dysfunction; Translations: [Other ill-defined heart diseases] Onset: 0 07-28-2019 Chronic Other connective tissue disease (1 source) Pain in right arm; Translations: [Pain in right arm] Episodic Other connective tissue disease (1 source) Cramp; Translations: [Cramp and spasm] Episodic Other diseases of kidney and ureters (2 sources) Acquired renal cystic disease; Translations: [Cyst of kidney, acquired] 01-18-2023 Episodic Other ear and sense organ disorders (20 sources) Sensorineural hearing loss, bilateral; Translations: [Sensorineural hearing loss, bilateral] Onset: 5 02-19-2015 Chronic Other ear and sense organ disorders (1 source) Referred otalgia of right ear; Translations: [Otalgia, right ear] Episodic Other gastrointestinal disorders (20 sources) History of irritable bowel syndrome; Translations: [Personal history of other diseases of the digestive system] 10-12-2020 Episodic Other gastrointestinal disorders (6 sources) Incontinence of feces; Translations: [Full incontinence of feces] Onset: 3 01-30-2023 Episodic Other gastrointestinal disorders (1 source) Full incontinence of feces; Translations: [Incontinence of feces, unspecified fecal incontinence type] Onset: 3 Episodic Other hereditary and degenerative nervous system conditions (1 source) Restless legs; Translations: [Restless legs syndrome] Chronic Other hereditary and degenerative nervous system conditions (1 source) Restless legs syndrome; Translations: [RLS (restless legs syndrome)] Onset: 3 Chronic Other liver diseases (1 source) Liver cyst; Translations: [Other specified diseases of liver] 01-18-2023 Chronic Other lower respiratory disease (2 sources) Multiple nodules of lung; Translations: [Other nonspecific abnormal finding of lung field] 01-18-2023 Episodic Other nervous system disorders (20 sources) Carpal tunnel syndrome of right wrist; Translations: [Carpal tunnel syndrome, right upper limb] Onset: 3 08-22-2012 Chronic Other nervous system disorders (1 source) Carpal tunnel syndrome, right upper limb; Translations: [Carpal tunnel syndrome of right wrist] Onset: 3 Chronic Other nervous system disorders (3 sources) Paresthesia of upper limb; Translations: [Anesthesia of skin] Episodic Other nervous system disorders (1 source) Paresthesia; Translations: [Paresthesia of skin] Episodic Other non-traumatic joint disorders (1 source) Shoulder pain; Translations: [Pain in right shoulder] Episodic Other upper respiratory disease (1 source) Nasal sinus problem; Translations: [Other specified disorders of nose and nasal sinuses] Episodic Peripheral and visceral atherosclerosis (20 sources) Peripheral vascular disease; Translations: [Peripheral vascular disease, unspecified] Onset: 0 07-28-2019 Chronic Residual codes; unclassified (20 sources) Sleep apnea; Translations: [Sleep apnea, unspecified] Onset: 2 06-06-2021 Chronic Spondylosis; intervertebral disc disorders; other back problems (1 source) Cervical spondylosis; Translations: [Spondylosis without myelopathy or radiculopathy, cervical region] Chronic Thyroid disorders (20 sources) Hypothyroidism; Translations: [Hypothyroidism, unspecified] Onset: 3 09-17-2012 Chronic Past or Other Problems Problem Classification Problem Date Documented Da te Episodic/Chronic Abdominal hernia (17 sources) Hiatal hernia; Translations: [Diaphragmatic hernia without obstruction or gangrene] Onset: 07-25-2022 07-25-2022 Episodic Gastrointestinal hemorrhage (3 sources) Rectal hemorrhage; Translations: [Hemorrhage of anus and rectum] Onset: 01-30-2023 01-18-2023 Episodic Genitourinary symptoms and ill-defined conditions (20 sources) Incomplete emptying of bladder; Translations: [Retention of urine, unspecified] Onset: 05-11-2005 05-11-2005 Episodic Noninfectious gastroenteritis (2 sources) Colitis; Translations: [Noninfective gastroenteritis and colitis, unspecified] Onset: 01-30-2023 01-18-2023 Episodic Other connective tissue disease (20 sources) Muscle pain; Translations: [Myalgia and myositis, unspecified] Onset: 02-28-2010 02-28-2010 Episodic Other connective tissue disease (20 sources) Bursitis of left shoulder; Translations: [Bursitis of left shoulder] Onset: 08-22-2012 08-22-2012 Episodic Other connective tissue disease (1 source) Cramp and spasm; Translations: [Muscle cramps] Onset: 10-13-2022 Episodic Other diseases of kidney and ureters (1 source) Cyst of kidney, acquired; Translations: [Kidney cyst, acquired] Onset: 01-30-2023 Episodic Other diseases of kidney and ureters (1 source) Disorder of kidney and ureter, unspecified; Translations: [Function kidney decreased] Onset: 11-02-2022 Episodic Other ear and sense organ disorders (6 sources) Otalgia; Translations: [Otalgia, unspecified ear] Onset: 02-19-2015 02-19-2015 Episodic Other ear and sense organ disorders (20 sources) Impacted cerumen of bilateral ears; Translations: [Impacted cerumen, bilateral] Onset: 02-19-2015 02-19-2015 Episodic Other ear and sense organ disorders (20 sources) Pain of ear structure; Translations: [Otalgia, unspecified ear] Onset: 02-19-2015 02-19-2015 Episodic Other gastrointestinal disorders (20 sources) Diarrhea; Translations: [Diarrhea, unspecified] Onset: 06-16-2008 06-16-2008 Episodic Other gastrointestinal disorders (20 sources) Occult blood in stools; Translations: [Other fecal abnormalities] Onset: 07-28-2019 07-28-2019 Episodic Other lower respiratory disease (8 sources) Nodule of lung; Translations: [Solitary pulmonary nodule] Onset: 02-01-2023 01-18-2023 Episodic Other lower respiratory disease (1 source) Other nonspecific abnormal finding of lung field; Translations: [Lung nodules] Onset: 01-30-2023 Episodic Other lower respiratory disease (1 source) Solitary pulmonary nodule; Translations: [Pulmonary nodule] Onset: 10-23-2022 Episodic Other upper respiratory disease (1 source) Other specified disorders of nose and nasal sinuses; Translations: [Sinus pressure] Onset: 10-13-2022 Episodic Otitis media and related conditions (2 sources) Dysfunction of eustachian tube; Translations: [Other specified disorders of Eustachian tube, unspecified ear] Onset: 10-13-2022 Episodic Skin and subcutaneous tissue infections (20 sources) Disorder of nail; Translations: [Cellulitis of unspecified toe] Onset: 02-20-2012 02-20-2012 Episodic Spondylosis; intervertebral disc disorders; other back problems (20 sources) Neck pain; Translations: [Cervicalgia] Onset: 07-24-2006 07-24-2006 Episodic Results Test Name Value Interpretation Reference Range Facil ity Vital Signs Date Time Vital Sign Value Performing Clinician Faci lity 01-30-2023 09:35-0400 Body height 157.5 cm Chanell Givens MD Work Phone: [facility] 01-30-2023 09:35-0400 Body temperature 97.5 [degF] Chanell Givens MD Work Phone: [facility] 01-30-2023 09:35-0400 Body weight 64.77 kg Chanell Givens MD Work Phone: [facility] 01-30-2023 09:35-0400 Diastolic blood pressure 68 mm[Hg] Chanell Givens MD Work Phone: [facility] 01-30-2023 09:35-0400 Heart rate 71 /min Chanell Givens MD Work Phone: [facility] 01-30-2023 09:35-0400 Respiratory rate 14 /min Chanell Givens MD Work Phone: [facility] 01-30-2023 09:35-0400 SaO2% (BldA) [Mass fraction] 98 % Chanell Givens MD Work Phone: [facility] 01-30-2023 09:35-0400 Systolic blood pressure 108 mm[Hg] Chanell Givens MD Work Phone: [facility] 01-18-2023 16:47-0400 Body weight 64.41 kg Elizabeth Mace MD Work Phone: [facility] 01-18-2023 16:47-0400 Diastolic blood pressure 56 mm[Hg] Elizabeth Mace MD Work Phone: [facility] 01-18-2023 16:47-0400 Heart rate 75 /min Elizabeth Mace MD Work Phone: [facility] 01-18-2023 16:47-0400 SaO2% (BldA) [Mass fraction] 96 % Elizabeth Mace MD Work Phone: [facility] 01-18-2023 16:47-0400 Systolic blood pressure 95 mm[Hg] Elizabeth Mace MD Work Phone: [facility] 10-13-2022 11:39-0400 Body temperature 98.4 [degF] Jillian Older LAUNDRY OPERATOR.STEEL BUFFER Work Phone: [facility] 10-13-2022 11:39-0400 Body weight 67.13 kg Jillian Older LAUNDRY OPERATOR.[employer]EL BUFFER Work Phone: [facility] 10-13-2022 11:39-0400 Diastolic blood pressure 66 mm[Hg] Jillian Older LAUNDRY OPERATOR.[employer]EL BUFFER Work Phone: [facility] 10-13-2022 11:39-0400 Heart rate 64 /min Jillian Older LAUNDRY OPERATOR.[employer]EL BUFFER Work Phone: [facility] 10-13-2022 11:39-0400 Respiratory rate 16 /min Jillian Older LAUNDRY OPERATOR.STEEL BUFFER Work Phone: [facility] 10-13-2022 11:39-0400 SaO2% (BldA) [Mass fraction] 98 % Jillian Older LAUNDRY OPERATOR.STEEL BUFFER Work Phone: [facility] 10-13-2022 11:39-0400 Systolic blood pressure 116 mm[Hg] Jillian Older LAUNDRY OPERATOR.STEEL BUFFER Work Phone: [facility] 07-10-2022 13:43-0500 Body height 157.5 cm Clarence Zee MD Work Phone: [facility] 07-10-2022 13:43-0500 Body weight 65.32 kg Clarence Zee MD Work Phone: [facility] 03-17-2022 11:11-0400 Body weight 67.13 kg Jillian Older LAUNDRY OPERATOR.[employer]EL BUFFER Work Phone: [facility] 03-17-2022 11:11-0400 Diastolic blood pressure 62 mm[Hg] Jillian Older LAUNDRY OPERATOR.STEEL BUFFER Work Phone: [facility] 03-17-2022 11:11-0400 Heart rate 64 /min Jillian Older LAUNDRY OPERATOR.STEEL BUFFER Work Phone: [facility] 03-17-2022 11:11-0400 Respiratory rate 16 /min Jillian Older LAUNDRY OPERATOR.STEEL BUFFER Work Phone: [facility] 03-17-2022 11:11-0400 Systolic blood pressure 128 mm[Hg] Jillian Older LAUNDRY OPERATOR.STEEL BUFFER Work Phone: [facility] 12-08-2021 08:22-0400 Body weight 67.59 kg Jillian Older LAUNDRY OPERATOR.STEEL BUFFER Work Phone: [facility] 12-08-2021 08:22-0400 Diastolic blood pressure 66 mm[Hg] Jillian Older LAUNDRY OPERATOR.STEEL BUFFER Work Phone: [facility] 12-08-2021 08:22-0400 Heart rate 66 /min Jillian Older LAUNDRY OPERATOR.STEEL BUFFER Work Phone: [facility] 12-08-2021 08:22-0400 Respiratory rate 14 /min Jillian Older LAUNDRY OPERATOR.STEEL BUFFER Work Phone: [facility] 12-08-2021 08:22-0400 Systolic blood pressure 122 mm[Hg] Jillian Older LAUNDRY OPERATOR.STEEL BUFFER Work Phone: [facility] Encounters Encounter Date Encounter Type Care Provider Facility Start: 05-11-2023 End: 05-11-2023 ambulatory Virgilio House PT Work Phone: [facility] Physical Therapy Procedures Date Procedure Procedure Detail Performing Clinician Start: 01-30-2023 Us retroperitoneal r eal time w/image complete Elizabeth Mace MD Work Phone: Start: 01-30-2023 Ct thorax w/o contra st material Elizabeth Mace MD Work Phone: Start: 10-23-2022 Ct thorax w/o contra st material Mamie Peter MD Work Phone: Start: 03-31-2022 Nerve conduction nawaf dies 5-6 studies Jillian Kamala LAUNDRY OPERATOR.STEEL BUFFER Work Phone: Start: 08-08-2021 Colonoscopy Mamie gomez MD Work Phone: Plan of Treatment Date Care Activity Detail Author Start: 08-25-2027 Urine microalbumin profile [facility] Start: 08-08-2026 Colonoscopy COLONOSCOPY [facility] Start: 08-08-2026 COLORECTAL CANCER SCREENING COLORECTAL CANCER SCREENING [facility] Start: 01-29-2026 DIABETES SCREEN DIABETES SCREEN [facility] Start: 01-29-2026 Diabetes Screening Diabetes Screening [facility] Start: 11-02-2025 DIABETES SCREEN DIABETES SCREEN [facility] Start: 12-08-2024 DIABETES SCREEN DIABETES SCREEN [facility] Start: 07-26-2024 DIABETES SCREEN DIABETES SCREEN [facility] Start: 01-30-2024 Hepatitis B surface antibody level LDL CHOLESTEROL [facility] Start: 07-21-2023 End: 09-20-2023 Lipid 1996 panel - Serum or Plasma LIPID PANEL BASIC Lab Routine Hyperlipidemia, unspecified hyperlipidemia type Expected: 07/21/2023, Expires: 09/20/2023 [facility] Work Phone: Immunizations Immunization Date Immunization Notes Care Provider [facility] 12-21-2020 COVID-19 vaccine (MARYBEL) Mamie Peter MD Work Phone: [facility] 06-24-2019 zoster vaccine recombinant Mamie Peter MD Work Phone: [facility] 10-10-2018 zoster vaccine recombinant Mamie Peter MD Work Phone: [facility] Work Phone: 06-26-2018 influenza virus vacc ine, unspecified formulation Mamie Peter MD Work Phone: [facility] 04-23-2018 zoster vaccine recombinant Mamie Peter MD Work Phone: [facility] 08-24-2017 tetanus and diphther ia toxoids, adsorbed, preservative free, for adult use (5 Lf of tetanus toxoid and 2 Lf of diphtheria toxoid) Mamie Peter MD Work Phone: [facility] 03-02-2015 pneumococcal conjuga te vaccine, 13 valent Mamie Peter MD Work Phone: [facility] 06-21-2012 influenza virus vacc ine, unspecified formulation Mamie Peter MD Work Phone: [facility] Work Phone: 04-26-2012 pneumococcal polysaccharide vaccine, 23 valent Mamie Peter MD Work Phone: [facility] 04-05-2008 influenza virus vacc ine, unspecified formulation Mamie Peter MD Work Phone: [facility] Work Phone: 04-05-2008 pneumococcal conjuga te vaccine, 7 valent Mamie Peter MD Work Phone: [facility] Work Phone: 03-14-2007 frisian encephaliti s vaccine for intramuscular administration Mamie Peter MD Work Phone: [facility] Work Phone: 03-14-2007 rabies vaccine, unspecified formulation Mamie Peter MD Work Phone: [facility] Work Phone: 03-07-2007 frisian encephaliti s vaccine for intramuscular administration Mamie Peter MD Work Phone: [facility] Work Phone: 03-07-2007 rabies vaccine, unspecified formulation Mamie Peter MD Work Phone: [facility] Work Phone: 02-07-2007 hepatitis A vaccine, unspecified formulation Mamie Peter MD Work Phone: [facility] Work Phone: 01-18-2007 diphtheria and tetan us toxoids, adsorbed for pediatric use Mamie Peter MD Work Phone: [facility] Work Phone: 01-18-2007 poliovirus vaccine, inactivated Mamie Peter MD Work Phone: [facility] Work Phone: 01-18-2007 typhoid vaccine, unspecified formulation Mamie Peter MD Work Phone: [facility] Work Phone: 04-22-1995 hepatitis B vaccine, adult dosage Mamie Peter MD Work Phone: [facility] Work Phone: 11-01-1994 hepatitis B vaccine, adult dosage Mamie Peter MD Work Phone: [facility] Work Phone: 09-25-1994 hepatitis B vaccine, adult dosage Mamie Peter MD Work Phone: [facility] Work Phone: Payers Date Payer Category Payer Unknown [id number] 2022 [employer]) [id number] 2022 Medicare [id number] 2004 [employer]) [id number] 2004 Medicare MEDICARE MEDICAR E A AND B [id number] 2004-Present [phone] [address] [address] [place] [address] Medicare [id number] 2004 Medicare [id number] 2004 Unknown FOR LIFE [id number] 2004-Present [phone] [address] [place] [address] Indemnity [id number] 2004 Unknown [id number] Social History Date Type Detail Facility Start: 06-21-2011 Tobacco smoking status NHIS Never smoked tobacco [facility] Start: 08-29-2021 End: 01-30-2023 Alcohol intake Current drinker of alcohol (finding) [facility] Start: 06-14-2021 History SDOH Alcohol Frequency 2 [facility] Start: 06-14-2021 History SDOH Alcohol Std Drinks 1 [facility] Start: 09-07-2009 History SDOH Alcohol Comment rare glass of wine [facility] Start: 06-14-2021 History SDOH Social Connections Phone 4 [facility] Start: 06-14-2021 History SDOH Social Connections Get Together 3 [facility] Start: 06-14-2021 History SDOH Financial 5 [facility] Start: 02-10-2020 Education 17 [facility] Start: 1940 Sex Assigned At Female [facility] Start: 11-28-2021 End: 03-31-2022 Exposure to SARS-CoV-2 (event) Not sure [facility] Start: 06-21-2011 Tobacco use and exposure Smokeless tobacco non-user [facility] Start: 07-25-2022 End: 10-13-2022 History of Social function [facility] Work Phone: Start: 07-25-2022 End: 10-13-2022 Tobacco use panel [facility] Work Phone: Adult Depression Screening Assessment 2 [facility] Work Phone: Start: 02-28-2020 Gender identity Identifies as female gender (finding) [facility] Start: 02-28-2020 Sexual orientation Heterosexual (finding) [facility] Do you belong to any clubs or organizations such as caodaism groups, unions, fraternal or athletic groups, or school groups? Yes [facility] Are you now , , , , never or living with a partner? [facility] How often to you hav e a drink containing alcohol? Monthly or less [facility] How often do you hav e 6 or more drinks on 1 occasion? Never [facility] Do you feel stress - tense, restless, nervous, or anxious, or unable to sleep at night because your mind is troubled all the time - these days [OSQ] Not at all [facility] The food that (I/we) bought just didn't last, and (I/we) didn't have money to get more. Never true [facility] In the past 12 month s, was there a time when you were not able to pay the mortgage or rent on time? No [facility] Are you now , , , , never or living with a partner? [facility] How many standard dr inks containing alcohol do you have on a typical day? 1 or 2 [facility] Do you feel stress - tense, restless, nervous, or anxious, or unable to sleep at night because your mind is troubled all the time - these days [OSQ] Only a little [facility] Clinical Notes 10-26-2021 to 05-11-2023 Virgilio Cunningham PT - 05/11/2023 9:05 AM ESTTelephone Encounter - Shima Luong - 04/26/2023 3:40 PM ESTTelephone Encounter - Vy Yousif - 04/26/2023 3:02 PM ESTPatient Instructions Note Date & Type Note Facility 05-11-2023 Note HNO ID: [id number] Author: Virgilio Cunningham PT Service: ? Author Type: Physical Therapist Type: Progress Notes Filed: 05/11/2023 9:34 AM Note Text: Episode Visit Count: 2 Therapist That Will Accept/Oversee The Plan Of Care: Virgilio House Start of Care Date: 03/20/23 Onset Date: 03/20/03 Plan of Care Certification Date: 03/20/23 Next Certification Due Date: 05/19/23 Patient Identified by Name and Date of : Yes REHABILITATION AND SPORTS THERAPY PHYSICAL THERAPY DISCONTINUANCE OF CARE PLAN OF CARE UPDATE: Assessment: Lisette Enamorado is discontinued from Physical Therapy services due to goal achievement and maximal benefit.. Patient was seen for 2 visits from Start of Care Date: 03/20/23 to 05/11/2023 and treatment included: Therapeutic exercise and Self-fpc management. Goals for Episode of Care: created on 03/20/23 Updated on: 05/11/23 Patient demonstrates independence and compliance with home exercise Program.-MET Patient to increase endurance of pelvic floor to at least 10 seconds in order to improve bladder/bowel control.-N/T Patient reports nocturia 0-2 times to demonstrate normalized bladder Function.-MET Patient reports at least 75% improvement in bladder/bowel leaks while coughing/sneezing compared to evaluation in order to increase bladder and bowel function in activities of daily living. -MET Patient is able to start the stream of urine in less than 5 seconds at least 75% of the time to normalize bladder function. -MET Patient reports increased ability to fully empty bladder/bowels without straining at least 75% of the time to normalize bladder/bowel function.-MET Patient reports at least 75% improvement in FI compared to IE.-MET Patient Goals: improve bladder and bowel function SUBJECTIVE: Pt denies any UI or FI, able to empty bladder and bowels with no issues. Pt reports good compliance with HEP, would like to continue on her own at home. Pain: Pain Pain Level: 0 Post Treatment Pain Post Treatment Pain Level: 0 PROMIS Scales Higher is Better 03/20/2023 Phys Func - Score 47 (within normal limits) Phys Func - Percentile 38 % Self-Eff Symptom - Score 47 (Average) Self-Eff Symptom - Percentile 38 % T-scores: mean of general population = 50. 5 points is clinically meaningfully difference Percentiles provide an indication of how the patient's score ranks in relation to the general population. Higher percentile rankings indicate better function/quality of life. 50th percentile is the average of the general population and indicates half of respondents had a worse score. OBJECTIVE MEASURES WITH LEVEL OF FUNCTION: Pelvic Floor Difficulty starting stream: No Incomplete emptying: No Stress Incontinence: No Nocturia (times per night): 1 Daytime Frequency (hours): 2 Difficulty evacuating / Excessive Straining: No Incomplete emptying: No Fecal incontinence: No Pelvic Floor Muscle Assessment Consent for pelvic assessment/testing and treatment: (PF mm assessment deferred.) TREATMENT: Therapeutic Exercise: 1: Reassessment 2: *seated alternating marches with PF bracing, 2x10 3: *sit to stand with PF bracing, 2x10 4: Discussed discharge planning Skilled Intervention: Patient was educated in proper exercise technique and purpose for exercises. Reviewed and educated patient on additions/changes for home exercise program as above (*). Skilled judgment was used in selection of appropriate interventions. Provided written instruction for home exercise program to facilitate proper performance and compliance. Billing Therapeutic Exercise Treatment Minutes: 28 Skilled Treatment Time Minutes (timed and untimed codes): 28 Total Session Time (minutes): 28 Session Start Time : 904 Session Stop Time : 932 Virgilio House, PT [facility] 05-11-2023 History of Present illness Narrative Episode Visit Count: 2 Therapist That Will Accept/Oversee The Plan Of Care: Virgilio House Start of Care Date: 03/20/23 Onset Date: 03/20/03 Plan of Care Certification Date: 03/20/23 Next Certification Due Date: 05/19/23 Patient Identified by Name and Date of : Yes REHABILITATION AND SPORTS THERAPY PHYSICAL THERAPY DISCONTINUANCE OF CARE PLAN OF CARE UPDATE: Assessment: Lisette Enamorado is discontinued from Physical Therapy services due to goal achievement and maximal benefit.. Patient was seen for 2 visits from Start of Care Date: 03/20/23 to 05/11/2023 and treatment included: Therapeutic exercise and Self-fpc management. Goals for Episode of Care: created on 03/20/23 Updated on: 05/11/23 Patient demonstrates independence and compliance with home exercise Program.-MET Patient to increase endurance of pelvic floor to at least 10 seconds in order to improve bladder/bowel control.-N/T Patient reports nocturia 0-2 times to demonstrate normalized bladder Function.-MET Patient reports at least 75% improvement in bladder/bowel leaks while coughing/sneezing compared to evaluation in order to increase bladder and bowel function in activities of daily living. -MET Patient is able to start the stream of urine in less than 5 seconds at least 75% of the time to normalize bladder function. -MET Patient reports increased ability to fully empty bladder/bowels without straining at least 75% of the time to normalize bladder/bowel function.-MET Patient reports at least 75% improvement in FI compared to IE.-MET Patient Goals: improve bladder and bowel function SUBJECTIVE: Pt denies any UI or FI, able to empty bladder and bowels with no issues. Pt reports good compliance with HEP, would like to continue on her own at home. Pain: Pain Pain Level: 0 Post Treatment Pain Post Treatment Pain Level: 0 PROMIS Scales Higher is Better 03/20/2023 Phys Func - Score 47 (within normal limits) Phys Func - Percentile 38 % Self-Eff Symptom - Score 47 (Average) Self-Eff Symptom - Percentile 38 % T-scores: mean of general population = 50. 5 points is clinically meaningfully difference Percentiles provide an indication of how the patient's score ranks in relation to the general population. Higher percentile rankings indicate better function/quality of life. 50th percentile is the average of the general population and indicates half of respondents had a worse score. OBJECTIVE MEASURES WITH LEVEL OF FUNCTION: Pelvic Floor Difficulty starting stream: No Incomplete emptying: No Stress Incontinence: No Nocturia (times per night): 1 Daytime Frequency (hours): 2 Difficulty evacuating / Excessive Straining: No Incomplete emptying: No Fecal incontinence: No Pelvic Floor Muscle Assessment Consent for pelvic assessment/testing and treatment: (PF mm assessment deferred.) TREATMENT: Therapeutic Exercise: 1: Reassessment 2: *seated alternating marches with PF bracing, 2x10 3: *sit to stand with PF bracing, 2x10 4: Discussed discharge planning Skilled Intervention: Patient was educated in proper exercise technique and purpose for exercises. Reviewed and educated patient on additions/changes for home exercise program as above (*). Skilled judgment was used in selection of appropriate interventions. Provided written instruction for home exercise program to facilitate proper performance and compliance. Billing Therapeutic Exercise Treatment Minutes: 28 Skilled Treatment Time Minutes (timed and untimed codes): 28 Total Session Time (minutes): 28 Session Start Time : 904 Session Stop Time : 932 Virgilio House PT documented in this encounter [facility] 04-26-2023 Miscellaneous Notes Patient has been identified by name and date of : No Patient phones for refill(s): Requested Prescriptions Pending Prescriptions Disp Refills ticagrelor (BRILINTA) 90 mg tablet 60 tablet 3 Sig: Take 1 tablet by mouth two times a day. colestipol (COLESTID) 1 gram tablet 90 tablet 3 Sig: Take 1 tablet by mouth two times a day. Dr. Roach ezetimibe (ZETIA) 10 mg tablet 90 tablet 3 Sig: Take 1 tablet by mouth once daily. Date of last office visit in primary care: 11/02/2022 Date of next office visit in primary care: 07/31/2023 Last 2 Encounter Wt Readings: Date: Wt: 01/30/2023 64.8 kg (142 lb 12.8 oz) 01/18/2023 64.4 kg (142 lb) Previous labs/tests for medication: Blood Pressure: BUN (mg/dL) Date Value 01/29/2023 24 07/26/2021 20 Sodium (mmol/L) Date Value 01/29/2023 143 07/26/2021 140 Last 1 Encounter BP Readings: Date: BP: 01/30/2023 108/68 Please advise. Thank you. Shima Luong. Patient has been identified by name and date of : Yes Requested Prescriptions Pending Prescriptions Disp Refills ticagrelor (BRILINTA) 90 mg tablet 60 tablet 3 Sig: Take 1 tablet by mouth two times a day. colestipol (COLESTID) 1 gram tablet 90 tablet 3 Sig: Take 1 tablet by mouth two times a day. Dr. Roach ezetimibe (ZETIA) 10 mg tablet 90 tablet 3 Sig: Take 1 tablet by mouth once daily. Patient asking for 90 days with 3 refills. RX INSTRUCTIONS: Patient aware RX will be sent to pharmacy. No need to notify patient. Vy Yousif documented in this encounter [facility] 03-20-2023 Note HNO ID: [id number] Author: Virgilio Cunningham, PT Service: ? Author Type: Physical Therapist Type: Progress Notes Filed: 03/20/2023 9:35 AM Note Text: Episode Visit Count: 1 Therapist That Will Accept/Oversee The Plan Of Care: Virgilio House Start of Care Date: 03/20/23 Onset Date: 03/20/03 Plan of Care Certification Date: 03/20/23 Next Certification Due Date: 05/19/23 Patient Identified by Name and Date of : Yes REHABILITATION AND SPORTS THERAPY PHYSICAL THERAPY EVALUATION PLAN OF CARE: Assessment: Lisette Enamorado presents with chief complaint of incomplete bladder and bowel emptying that interferes with bladder function, bowel function . She presents with impairments in decreased pelvic floor mm endurance; impaired bladder and bowel function. PROMIS? (Patient-Reported Outcomes Measurement Information System) scores were reviewed and physical function domain and self efficacy domain identified as within normal limits. Prognosis for therapy is Good due to: current objective clinical presentation . She will benefit from skilled therapy services to meet the goals established for this plan of care as noted below. Goals for Episode of Care: created on 03/20/23 through 05/19/23 Patient demonstrates independence and compliance with home exercise program. Patient to increase endurance of pelvic floor to at least 10 seconds in order to improve bladder/bowel control. Patient reports nocturia 0-2 times to demonstrate normalized bladder function. Patient reports at least 75% improvement in bladder/bowel leaks while coughing/sneezing compared to evaluation in order to increase bladder and bowel function in activities of daily living. Patient is able to start the stream of urine in less than 5 seconds at least 75% of the time to normalize bladder function. Patient reports increased ability to fully empty bladder/bowels without straining at least 75% of the time to normalize bladder/bowel function. Patient reports at least 75% improvement in FI compared to IE. Patient Goals: improve bladder and bowel function Planned Interventions, Frequency, and Duration: Current Frequency: 1x every other week Duration: 4 weeks (reassess at 4 weeks and progress as indicated) Total Number of Visits Planned: 2 Planned Treatment Interventions: Therapeutic exercise (78694), Manual therapy (71345), Self-fpc management (07177), Patient/Family/Caregiver Education PLAN FOR NEXT VISIT: assign bladder diary, progress exercises as tolerated Patient demonstrates good understanding of plan of care and treatment. The above goals and plan of care were discussed and agreed upon by patient/family. SUBJECTIVE: Pt reports difficulty emptying bladder and bowels began about 20 years go but recently has been feeling better. Pt reports occasional UI and FI, states she drinks most of her daily fluids first thing in the morning and then maybe eats one meal a day, does not have much of an appetite. Patient Goals: improve bladder and bowel function Functional Limitations: bladder function, bowel function Prior Level of Function: Independent without limitations Relevant History Past Relevant Medical Conditions: (see note) Past Relevant Surgical Conditions: (see note) Employment: Retired Recreation / Current Exercise: cle[place] paths in [place] Intake Information: Prescription present PAST MEDICAL HISTORY Diagnosis Date Coronary artery disease Diarrhea Generalized anxiety disorder Generalized osteoarthrosis, unspecified site lumbar and c-spine Hematochezia 03/31/2021 Incomplete bladder emptying 05/11/2005 Irritable bowel syndrome Pure hypercholesterolemia Thyroid disease Unspecified essential hypertension PAST SURGICAL HISTORY Procedure Laterality Date ADENOIDECTOMY PRIMARY Adenoidectomy ANTERIOR COLPORRAPHY RPR CYSTOCELE W/CYSTO Cystocele repair APPENDECTOMY >72 APPENDECTOMY HX COLONOSCOPY 08/08/2021 repeat in 5 years COLONOSCOPY FLX DX W/COLLJ SPEC WHEN PFRMD 08/2003 Colonoscopy COLONOSCOPY FLX DX W/COLLJ SPEC WHEN PFRMD 06/16/2008 Colonoscopy-repeat in -2018 COLONOSCOPY FLX DX W/COLLJ SPEC WHEN PFRMD 03/19/2014 Colonoscopy COLONOSCOPY FLX DX W/COLLJ SPEC WHEN PFRMD 08/11/2019 Colonoscopy EGD W/O BRSH SPEC VARICIES INJ 08/08/2021 ESOPHAGOGASTRODUODENOSCOPY TRANSORAL DIAGNOSTIC 08/09/2015 EGD ESOPHAGOGASTRODUODENOSCOPY TRANSORAL DIAGNOSTIC 08/11/2019 EGD LEFT HEART CATH,PERCUTANEOUS 09/26/2012 Cardiac cath, L heart [facility] - chest pain STENT PLACEMENT 03/22, 09/21 medicated cardiac stent TONSILLECTOMY HX TONSILLECTOMY PRIMARY/SECONDARY Tonsillectomy Previous Treatment: None Falls Interview: Fall without injury in the last year Aquatic Screen: No Pain: Pain Pain Level: 0 Post Treatment Pain Post Treatment Pain Level: 0 PROMIS Scales Higher is Better 03/20/2023 Phys Func - Score 47 (within normal limits) Phys Func - Perce (more content not included)... [facility] 03-20-2023 History of Present illness Narrative Episode Visit Count: 1 Therapist That Will Accept/Oversee The Plan Of Care: Virgilio House Start of Care Date: 03/20/23 Onset Date: 03/20/03 Plan of Care Certification Date: 03/20/23 Next Certification Due Date: 05/19/23 Patient Identified by Name and Date of : Yes REHABILITATION AND SPORTS THERAPY PHYSICAL THERAPY EVALUATION PLAN OF CARE: Assessment: Lisette Enamorado presents with chief complaint of incomplete bladder and bowel emptying that interferes with bladder function, bowel function . She presents with impairments in decreased pelvic floor mm endurance; impaired bladder and bowel function. PROMIS (Patient-Reported Outcomes Measurement Information System) scores were reviewed and physical function domain and self efficacy domain identified as within normal limits. Prognosis for therapy is Good due to: current objective clinical presentation . She will benefit from skilled therapy services to meet the goals established for this plan of care as noted below. Goals for Episode of Care: created on 03/20/23 through 05/19/23 Patient demonstrates independence and compliance with home exercise program. Patient to increase endurance of pelvic floor to at least 10 seconds in order to improve bladder/bowel control. Patient reports nocturia 0-2 times to demonstrate normalized bladder function. Patient reports at least 75% improvement in bladder/bowel leaks while coughing/sneezing compared to evaluation in order to increase bladder and bowel function in activities of daily living. Patient is able to start the stream of urine in less than 5 seconds at least 75% of the time to normalize bladder function. Patient reports increased ability to fully empty bladder/bowels without straining at least 75% of the time to normalize bladder/bowel function. Patient reports at least 75% improvement in FI compared to IE. Patient Goals: improve bladder and bowel function Planned Interventions, Frequency, and Duration: Current Frequency: 1x every other week Duration: 4 weeks (reassess at 4 weeks and progress as indicated) Total Number of Visits Planned: 2 Planned Treatment Interventions: Therapeutic exercise (39619), Manual therapy (45202), Self-fpc management ([id number]), Patient/Family/Caregiver Education PLAN FOR NEXT VISIT: assign bladder diary, progress exercises as tolerated Patient demonstrates good understanding of plan of care and treatment. The above goals and plan of care were discussed and agreed upon by patient/family. SUBJECTIVE: Pt reports difficulty emptying bladder and bowels began about 20 years go but recently has been feeling better. Pt reports occasional UI and FI, states she drinks most of her daily fluids first thing in the morning and then maybe eats one meal a day, does not have much of an appetite. Patient Goals: improve bladder and bowel function Functional Limitations: bladder function, bowel function Prior Level of Function: Independent without limitations Relevant History Past Relevant Medical Conditions: (see note) Past Relevant Surgical Conditions: (see note) Employment: Retired Recreation / Current Exercise: [place] paths in [place] Intake Information: Prescription present PAST MEDICAL HISTORY Diagnosis Date Coronary artery disease Diarrhea Generalized anxiety disorder Generalized osteoarthrosis, unspecified site lumbar and c-spine Hematochezia 03/31/2021 Incomplete bladder emptying 05/11/2005 Irritable bowel syndrome Pure hypercholesterolemia Thyroid disease Unspecified essential hypertension PAST SURGICAL HISTORY Procedure Laterality Date ADENOIDECTOMY PRIMARY <AGE 11 Adenoidectomy ANTERIOR COLPORRAPHY RPR CYSTOCELE W/CYSTO Cystocele repair APPENDECTOMY >71 APPENDECTOMY HX COLONOSCOPY 08/08/2021 repeat in 5 years COLONOSCOPY FLX DX W/COLLJ SPEC WHEN PFRMD 08/2003 Colonoscopy COLONOSCOPY FLX DX W/COLLJ SPEC WHEN PFRMD 06/16/2008 Colonoscopy-repeat in -2018 COLONOSCOPY FLX DX W/COLLJ SPEC WHEN PFRMD 03/19/2014 Colonoscopy COLONOSCOPY FLX DX W/COLLJ SPEC WHEN PFRMD 08/11/2019 Colonoscopy EGD W/O BRSH SPEC VARICIES INJ 08/08/2021 ESOPHAGOGASTRODUODENOSCOPY TRANSORAL DIAGNOSTIC 08/09/2015 EGD ESOPHAGOGASTRODUODENOSCOPY TRANSORAL DIAGNOSTIC 08/11/2019 EGD LEFT HEART CATH,PERCUTANEOUS 09/26/2012 Cardiac cath, L heart [facility] - chest pain STENT PLACEMENT 03/22, 09/21 medicated cardiac stent TONSILLECTOMY HX TONSILLECTOMY PRIMARY/SECONDARY <AGE 11 Tonsillectomy Previous Treatment: None Falls Interview: Fall without injury in the last year Aquatic Screen: No Pain: Pain Pain Level: 0 Post Treatment Pain Post Treatment Pain Level: 0 PROMIS Scales Higher is Better 03/20/2023 Phys Func - Score 47 (within normal limits) Phys Func - Percentile 38 % Self-Eff Symptom - Score 47 (Average) Self-Eff Symptom - Percentile 38 % T-scores: mean of general population = 50. 5 points is clinically meaningfully difference Percentiles provide an indication of how the patient's score ranks in relation to the general population. Higher percentile rankings indicate better function/quality of life. 50th percentile is the average of the general population and indicates half of respondents had a worse score. OBJECTIVE MEASURES WITH LEVEL OF FUNCTION: Pelvic Floor Pregnancies: 2 Births: 2 Vaginal Delivery: Standard Pain with penetration: Not sexually active Urinary/Bowel History : Urinary History, Bowel History Difficulty starting stream: Yes Incomplete emptying: Yes Stress Incontinence: Cough/sneeze Urgency: No Nocturia (times per night): (2-7) Daytime Frequency (hours): 0.5-2 Fluid Intake: Water, Coffee, Other beverage (8 oz measurements) Water : I try to drink a big water bottle. unable to state amount of fluid in water bottle Coffee: 3 Other beverage : 1 (Boost) Difficulty evacuating / Excessive Straining: Yes Incomplete emptying: Yes Bowel Movement Frequency: 1x/day Fecal incontinence: Yes Liquid stool: 1 to 3 times per month Bowel Aides / Supplements: None. Pelvic Floor Muscle Assessment Consent for pelvic assessment/testing and treatment: Patient was educated regarding pelvic floor physical therapy assessment/treatment which may include pelvic floor and girdle muscle assessment externally or internally (vaginal or rectal approach)., Patient verbalized consent for the above treatment approaches today. Patient understands they have control of the treatment and an opportunity to stop treatment at any time. Pelvic Floor Muscle Assessment: PERFECT, Muscle Dynamics Power: 3 Endurance: 4 Fast Reps: 10 Contracton Pressure: Moderate squeeze, felt all the way around finger surface Duration of Contraction: >3 seconds Recruitment of pelvic floor muscles: Coordinated Range of Motion: Normal Ability to Lengthen pelvic floor: Yes Pelvic Floor Manual Assessment Pelvic Floor Tenderness/Hyperactivity: Tested Vaginally in Tested Vaginally in : Supine/hooklying (No tightness/tenderness noted.) LE AROM R LE AROM: WFL L LE AROM: WFL LE Flexibility Flexibility: Hamstring Flexibility, Hip Adductor, Hip Internal Rotation Flexibility, Hip External Rotation Flexibility R Hamstring Flexibility: WNL L Hamstring Flexibility: WNL R Adductor Flexibility: WNL L Adductor Flexibility: WNL R Hip Internal Rotation Flexibility: WNL L Hip Internal Rotation Flexibility: WNL R Hip External Rotation Flexibility: WNL L Hip External Rotation Flexibility: WNL LE Strength Trunk Strength: Lower Abdominals: 5/5 R LE Strength: 5/5 L LE Strength: 5/5 Education: Education Learning Preferences: Demonstration, Explanation, Performance, Printed Materials Barriers: None Learning/educational needs: Home exercise program, Plan of Care Education Provided: Yes, see treatment interventions for education provided Education Provided To: Patient Education Mode/Type: Demonstration, Explanation/Discussion, Literature/Printed Materials, Performance Response to Education/Teach Back: States/Identifies, Return Demonstration TREATMENT: PT Treatment Interventions: Therapeutic Exercise, Self-Jail Management Evaluation Therapeutic Exercise: 1: *kegal holds, 4sec hold with 4sec rest, 3x10 2: *knack technique 3: *isometric hip adduction, 2x10 Skilled Intervention: Patient was educated in proper exercise technique and purpose for exercises. Reviewed and educated patient on additions/changes for home exercise program as above (*). Skilled judgment was used in selection of appropriate interventions. Provided written instruction for home exercise program to facilitate proper performance and compliance. Self-Jail Management: 1: Reviewed pelvic floor anatomy and function with 3D pelvic model 2: Reviewed typical vs dysfunctional bladder and bowel health 3: Reviewed bladder irritants, importance of appropriate water intake throughout the day 4: Reviewed toileting techniques to fully empty bladder and bowels without straining, start a stream of urine 5: Reviewed impact of diet on bowels, importance of fiber and water intake for bowel health, importance of improving stool consistency to combat FI 6: Reviewed strategies to improve urinary frequency Skilled Intervention: Skilled judgment in the selection of proper modification for activity of daily living/home management based on clinical presentation, deficits, and needs. Provided written instruction for activities of daily living techniques to facilitate proper performance and compliance. Billing * Evaluation Low Complexity: 1 Unit Therapeutic Exercise Treatment Minutes: 10 Self-Care/Home Management Treatment Minutes: 18 Skilled Treatment Time Minutes (timed and untimed codes): 50 Total Session Time (minutes): 50 Session Start Time : 836 Session Stop Time : [address] [facility] PT documented in this encounter [facility] 03-03-2023 Miscellaneous Notes Patient has been identified by name and date of : No Patient phones for refill(s): Requested Prescriptions Pending Prescriptions Disp Refills ticagrelor (BRILINTA) 90 mg tablet 60 tablet 3 Sig: Take 1 tablet by mouth twice daily. colestipol (COLESTID) 1 gram tablet 0 Sig: Take 1 tablet by mouth twice daily. Dr. Roach ezetimibe (ZETIA) 10 mg tablet Si tablet. Date of last office visit in primary care: 01/18/23 Last 2 Encounter Wt Readings: Date: Wt: 01/30/2023 64.8 kg (142 lb 12.8 oz) 01/18/2023 64.4 kg (142 lb) Previous labs/tests for medication: Not applicable Please advise. Thank you. Shima Luong Patient has been identified by name and date of : Yes Last office visit in this department: 11/02/2022 RX INSTRUCTIONS: Patient aware RX will be sent to pharmacy. No need to notify patient. Patient phones requesting refills as follows: Requested Prescriptions Pending Prescriptions Disp Refills ticagrelor (BRILINTA) 90 mg tablet 60 tablet 3 Sig: Take 1 tablet by mouth twice daily. colestipol (COLESTID) 1 gram tablet 0 Sig: Take 1 tablet by mouth twice daily. Dr. Roach ezetimibe (ZETIA) 10 mg tablet Si tablet. Please review and advise. Dana Mae documented in this encounter [facility] 02-01-2023 Miscellaneous Notes Patient returned call and given provider's message below with verbalized understanding. Patient reports she picked up her trospium Rx yesterday from Shanice Das, and cannot find it today. Reports she will keep looking for it, and if she cannot find it, will call back to let pcp know. Reports she has 3 pills left from last refill. Left message to return call It looks like the one was ordered by another provider. We were not made aware had it ordered. Only needs to do one. Patient calling asking if she has to have CT Chest done on Sunday? She had one done on Tuesday 01/30 already? Results of that one not in computer yet. Please advise documented in this encounter [facility] 01-31-2023 Miscellaneous Notes Patient has been identified by name and date of : No Patient phones for refill(s): Requested Prescriptions Pending Prescriptions Disp Refills levothyroxine (SYNTHROID) 75 mcg tablet 90 tablet 3 Sig: Take 1 tablet by mouth daily before breakfast. esomeprazole (NEXIUM) 40 mg capsule 90 capsule 3 Sig: Take 1 capsule by mouth daily before breakfast. Date of last office visit in primary care: 10/31/22 Last 2 Encounter Wt Readings: Date: Wt: 01/30/2023 64.8 kg (142 lb 12.8 oz) 01/18/2023 64.4 kg (142 lb) Previous labs/tests for medication: Thyroid: TSH Date Value 10/13/2022 2.480 mIU/L 06/01/2021 4.280 uU/mL Please advise. Thank you. Shima Boucher LPN Patient has been identified by name and date of : Yes Requested Prescriptions Pending Prescriptions Disp Refills levothyroxine (SYNTHROID) 75 mcg tablet 90 tablet 3 Sig: Take 1 tablet by mouth daily before breakfast. esomeprazole (NEXIUM) 40 mg capsule 90 capsule 3 Sig: Take 1 capsule by mouth daily before breakfast. RX INSTRUCTIONS: Patient aware RX will be sent to pharmacy. No need to notify patient. Tosin Sparks documented in this encounter [facility] 01-30-2023 Note HNO ID: [id number] Author: Chanell Givens MD Service: ? Author Type: Physician Type: Progress Notes Filed: 02/03/2023 4:13 PM Note Text: Lisette Enamorado 1940 REFERRING PHYSICIAN: Elizabeth Mace MD CHIEF COMPLAINT: Rectal Colitis HPI: The patient is a 82 year old female presents with episodes of loose stools, this has been occurring for several weeks. She also noted fecal urgency, some incontinence. She states that immodium helped. She notes hard balls (stool) that pop out . She feels that she can't feel and that it is hard to go . She states that she feels like she lost feeling down there . She notes not colon cancer in her family. The patient denies blood in stools, denies abdominal pain. The patient has had previous colonoscopy last year. Left colon tubular adenoma, about 1 cm was found. She notes no diarrhea for now. PAST MEDICAL HISTORY Diagnosis Date Coronary artery disease Diarrhea Generalized anxiety disorder Generalized osteoarthrosis, unspecified site lumbar and c-spine Hematochezia 03/31/2021 Incomplete bladder emptying 05/11/2005 Irritable bowel syndrome Pure hypercholesterolemia Thyroid disease Unspecified essential hypertension PAST SURGICAL HISTORY Procedure Laterality Date ADENOIDECTOMY PRIMARY Adenoidectomy ANTERIOR COLPORRAPHY RPR CYSTOCELE W/CYSTO Cystocele repair APPENDECTOMY >71 APPENDECTOMY HX COLONOSCOPY 08/08/2021 repeat in 5 years COLONOSCOPY FLX DX W/COLLJ SPEC WHEN PFRMD 08/2003 Colonoscopy COLONOSCOPY FLX DX W/COLLJ SPEC WHEN PFRMD 06/16/2008 Colonoscopy-repeat in -2018 COLONOSCOPY FLX DX W/COLLJ SPEC WHEN PFRMD 03/19/2014 Colonoscopy COLONOSCOPY FLX DX W/COLLJ SPEC WHEN PFRMD 08/11/2019 Colonoscopy EGD W/O RUST SPEC VARICIES INJ 08/08/2021 ESOPHAGOGASTRODUODENOSCOPY TRANSORAL DIAGNOSTIC 08/09/2015 EGD ESOPHAGOGASTRODUODENOSCOPY TRANSORAL DIAGNOSTIC 08/11/2019 EGD LEFT HEART CATH,PERCUTANEOUS 09/26/2012 Cardiac cath, L heart [facility] - chest pain STENT PLACEMENT 03/22, 09/21 medicated cardiac stent TONSILLECTOMY HX TONSILLECTOMY PRIMARY/SECONDARY Tonsillectomy Current Outpatient Medications Medication Sig trospium (SANCTURA) 20 mg tablet Take 1 tablet by mouth once daily. levothyroxine (SYNTHROID) 75 mcg tablet Take 1 tablet by mouth daily before breakfast. amLODIPine (NORVASC) 5 mg tablet Take 1 tablet by mouth once daily. metoprolol tartrate, short acting, (LOPRESSOR) 50 mg tablet Take 1 tablet by mouth three times daily. esomeprazole (NEXIUM) 40 mg capsule Take 1 capsule by mouth daily before breakfast. ticagrelor (BRILINTA) 90 mg tablet Take 1 tablet by mouth twice daily. ezetimibe (ZETIA) 10 mg tablet 10 mg. cholecalciferol, vitamin D3, 4,000 unit cap Take 1 Dose by mouth once daily. colestipol (COLESTID) 1 gram tablet Take 1 tablet by mouth twice daily. Dr. Roach Aspirin 81 mg Tab Take 1 tablet by mouth once daily. Take with food. cyclobenzaprine (FLEXERIL) 10 mg tablet Take 0.5 tablets by mouth three times daily as needed for muscle spasm or pain. (Patient not taking: Reported on 01/30/2023) No current facility-administered medications for this visit. ALLERGIES: Ditropan [Oxybutynin Chloride] and Lisinopril PERSONAL HISTORY: Social History Tobacco Use Smoking status: Never Smokeless tobacco: Never Vaping Use Vaping Use: Never used Substance Use Topics Alcohol use: Yes Comment: rare glass of wine Drug use: No FAMILY HISTORY Problem Relation Age of Onset Heart Mother CABG x3 Hypertension Mother Breast Cancer Mother Heart Father other (lung problems) Father The review of systems data was entered by the nurse and reviewed by hi Nursing Notes: Angy Rodgers RN 01/30/2023 9:36 AM Signed REVIEW OF SYSTEMS: General: The patient denies fatigue, denies weight loss, denies weight gain, denies feeling hot, and NOTES feelings of cold. Eyes: The patient denies glaucoma, denies eye injury/surgery, wears glasses or contacts. Ear/Nose/Throat: The patient denies allergies, denies hayfever, denies ear infections, and denies bloody noses. Cardiovascular: The patient denies chest pain, NOTES heart disease, denies high blood pressure, NOTES cardiac stent, denies prior heart attack, denies irregular heart beat, denies high cholesterol, denies poor circulation, denies heart failure, other cardiac issues, denies claudication, NOTES cold feet, denies peripheral arterial stent. Respiratory: The patient denies tuberculosis, denies pneumonia, denies frequent cough, denies pulmonary embolism, denies shortness of breath, and denies coughing up blood. Gastrointestinal: The patient denies difficulty swallowing, denies acid reflux, denies ulcers, denies vomiting, denies jaundice/hepatitis, denies gallbladder problems, denies black or tarry stools, denies hemorrhoids, NOTES bleeding from rectum, denies diverticulitis, denies constipatio (more content not included)... [facility] 01-30-2023 Note HNO ID: [id number] Author: Mattie Abreu RDMS Service: ? Author Type: Desktop Manager Type: Progress Notes Filed: 01/30/2023 9:13 AM Note Text: Radiology Service Progress Note PATIENT NAME: Lisette Enamorado DATE OF SERVICE: January 30, 2023 TIME: 9:13 AM PATIENT IDENTITY VERIFICATION COMPLETED USING TWO (2) IDENTIFIERS: Name and Date of confirmed by patient verbally. FALL SCREENING: Has the patient had 2 falls in the last year or 1 fall with injury or currently using an Ambulatory Assistive Device (Walker, Cane, Wheelchair, Crutches, etc.)? No PATIENT GENDER DATA: Female. status: : No status: NO. PATIENT RELEVANT IMPLANT DATA REVIEWED: Not Applicable RADIOLOGY DEPARTMENT: Ultrasound PERIPHERAL IV DATA: Not applicable SIGNED BY: Mattie Abreu RDMS January 30, 2023 9:13 AM [facility] 01-30-2023 Note HNO ID: [id number] Author: Whitney Barry RT(R) Service: ? Author Type: Desktop Manager Type: Progress Notes Filed: 01/30/2023 8:51 AM Note Text: Radiology Service Progress Note PATIENT NAME: Lisette Enamorado DATE OF SERVICE: January 30, 2023 TIME: 8:51 AM PATIENT IDENTITY VERIFICATION COMPLETED USING TWO (2) IDENTIFIERS: Name and Date of confirmed by patient verbally. FALL SCREENING: Has the patient had 2 falls in the last year or 1 fall with injury or currently using an Ambulatory Assistive Device (Walker, Cane, Wheelchair, Crutches, etc.)? No PATIENT GENDER DATA: Female. status: : No status: NO. PATIENT RELEVANT IMPLANT DATA REVIEWED: Yes RADIOLOGY DEPARTMENT: CT; Exam(s) Completed: Chest PERIPHERAL IV DATA: Not applicable SIGNED BY: RT Summer(R) January 30, 2023 8:51 AM [facility] 01-30-2023 Instructions Chanell Givens MD - 01/30/2023 9:54 AM EDT 25 - 30 grams of fiber supplements 8- 10 glasses of free water per day Refer to Physical therapy for pelvic floor exercises documented in this encounter [facility] 01-30-2023 History of Present illness Narrative Lisette Enamorado 1940 REFERRING PHYSICIAN: Elizabeth Mace MD CHIEF COMPLAINT: Rectal Colitis HPI: The patient is a 82 year old female presents with episodes of loose stools, this has been occurring for several weeks. She also noted fecal urgency, some incontinence. She states that immodium helped. She notes hard balls (stool) that pop out . She feels that she can't feel and that it is hard to go . She states that she feels like she lost feeling down there . She notes not colon cancer in her family. The patient denies blood in stools, denies abdominal pain. The patient has had previous colonoscopy last year. Left colon tubular adenoma, about 1 cm was found. She notes no diarrhea for now. PAST MEDICAL HISTORY Diagnosis Date Coronary artery disease Diarrhea Generalized anxiety disorder Generalized osteoarthrosis, unspecified site lumbar and c-spine Hematochezia 03/31/2021 Incomplete bladder emptying 05/11/2005 Irritable bowel syndrome Pure hypercholesterolemia Thyroid disease Unspecified essential hypertension PAST SURGICAL HISTORY Procedure Laterality Date ADENOIDECTOMY PRIMARY <AGE 11 Adenoidectomy ANTERIOR COLPORRAPHY RPR CYSTOCELE W/CYSTO Cystocele repair APPENDECTOMY >71 APPENDECTOMY HX COLONOSCOPY 08/08/2021 repeat in 5 years COLONOSCOPY FLX DX W/COLLJ SPEC WHEN PFRMD 08/2003 Colonoscopy COLONOSCOPY FLX DX W/COLLJ SPEC WHEN PFRMD 06/16/2008 Colonoscopy-repeat in -2018 COLONOSCOPY FLX DX W/COLLJ SPEC WHEN PFRMD 03/19/2014 Colonoscopy COLONOSCOPY FLX DX W/COLLJ SPEC WHEN PFRMD 08/11/2019 Colonoscopy EGD W/O BRSH SPEC VARICIES INJ 08/08/2021 ESOPHAGOGASTRODUODENOSCOPY TRANSORAL DIAGNOSTIC 08/09/2015 EGD ESOPHAGOGASTRODUODENOSCOPY TRANSORAL DIAGNOSTIC 08/11/2019 EGD LEFT HEART CATH,PERCUTANEOUS 09/26/2012 Cardiac cath, L heart [facility] - chest pain STENT PLACEMENT 03/22, 09/21 medicated cardiac stent TONSILLECTOMY HX TONSILLECTOMY PRIMARY/SECONDARY <AGE 11 Tonsillectomy Current Outpatient Medications Medication Sig trospium (SANCTURA) 20 mg tablet Take 1 tablet by mouth once daily. levothyroxine (SYNTHROID) 75 mcg tablet Take 1 tablet by mouth daily before breakfast. amLODIPine (NORVASC) 5 mg tablet Take 1 tablet by mouth once daily. metoprolol tartrate, short acting, (LOPRESSOR) 50 mg tablet Take 1 tablet by mouth three times daily. esomeprazole (NEXIUM) 40 mg capsule Take 1 capsule by mouth daily before breakfast. ticagrelor (BRILINTA) 90 mg tablet Take 1 tablet by mouth twice daily. ezetimibe (ZETIA) 10 mg tablet 10 mg. cholecalciferol, vitamin D3, 4,000 unit cap Take 1 Dose by mouth once daily. colestipol (COLESTID) 1 gram tablet Take 1 tablet by mouth twice daily. Dr. Roach Aspirin 81 mg Tab Take 1 tablet by mouth once daily. Take with food. cyclobenzaprine (FLEXERIL) 10 mg tablet Take 0.5 tablets by mouth three times daily as needed for muscle spasm or pain. (Patient not taking: Reported on 01/30/2023) No current facility-administered medications for this visit. ALLERGIES: Ditropan [Oxybutynin Chloride] and Lisinopril PERSONAL HISTORY: Social History Tobacco Use Smoking status: Never Smokeless tobacco: Never Vaping Use Vaping Use: Never used Substance Use Topics Alcohol use: Yes Comment: rare glass of wine Drug use: No FAMILY HISTORY Problem Relation Age of Onset Heart Mother CABG x3 Hypertension Mother Breast Cancer Mother Heart Father other (lung problems) Father The review of systems data was entered by the nurse and reviewed by hi Nursing Notes: Angy Rodgers RN 01/30/2023 9:36 AM Signed REVIEW OF SYSTEMS: General: The patient denies fatigue, denies weight loss, denies weight gain, denies feeling hot, and NOTES feelings of cold. Eyes: The patient denies glaucoma, denies eye injury/surgery, wears glasses or contacts. Ear/Nose/Throat: The patient denies allergies, denies hayfever, denies ear infections, and denies bloody noses. Cardiovascular: The patient denies chest pain, NOTES heart disease, denies high blood pressure, NOTES cardiac stent, denies prior heart attack, denies irregular heart beat, denies high cholesterol, denies poor circulation, denies heart failure, other cardiac issues, denies claudication, NOTES cold feet, denies peripheral arterial stent. Respiratory: The patient denies tuberculosis, denies pneumonia, denies frequent cough, denies pulmonary embolism, denies shortness of breath, and denies coughing up blood. Gastrointestinal: The patient denies difficulty swallowing, denies acid reflux, denies ulcers, denies vomiting, denies jaundice/hepatitis, denies gallbladder problems, denies black or tarry stools, denies hemorrhoids, NOTES bleeding from rectum, denies diverticulitis, denies constipation, denies diarrhea, NOTES loss of stool control, and denies hernias. Kidney/Bladder: The patient denies kidney stones, denies urine infections, and denies bloody urine. Skin: The patient denies a history of skin cancer, denies bleeding/changing moles, and denies a history of skin rash. Neurologic: The patient denies a history of epilepsy/convulsions, denies headaches, denies head/spinal injuries, and denies stroke/TIA. Psychiatric: The patient denies psychiatric medications, NOTES depression, and denies voices, denies substance abuse. Endocrine: The patient NOTES thyroid disorders, denies diabetes, and denies hormonal problems. Hematologic: The patient NOTES a history of bruising, denies bleeding, and denies anemia, denies blood clots. Infections: The patient denies a history of measles and mumps, denies rheumatic fever, and denies sexually transmitted diseases. Musculoskeletal: The patient denies back pain/injury, NOTES back problems, denies sciatica, NOTES knee/foot trouble, denies arthritis, or denies gout. When was patient's last Mammogram screening? Believes it was 3 or 4 years ago Last Colonoscopy: 08/08/21 Angy Rodgers RN PHYSICAL EXAMINATION: General: The patient is 82 year old female, well nourished, well hydrated in no acute distress. The patient is oriented to time, place, and person. VITALS: Blood pressure 108/68, pulse 71, temperature 36.4 C (97.5 F), temperature source Temporal, resp. rate 14, height 157.5 cm (5' 2 ), weight 64.8 kg (142 lb 12.8 oz), SpO2 98 %. Body mass index is 26.12 kg/m . Head: Normal cephalic, atraumatic Eyes: pupils are equally round, sclera are clear/anicteric Neck is supple with no tracheal deviation Cardiac: normal heart sounds, regular Respiratory: Normal respiratory excursion and pattern. Abdominal exam: benign Rectal: normal sphincter tone, no masses noted, minimal external hemorrhoids Extremities: no clubbing, cyanosis or edema. Neuro: non focal Psych: normal mood Assessment IMPRESSION: fecal incontinence/urgency PLAN: I have discussed the above with the patient. The patient recently had a colonoscopy last year, I do not believe that another study would be of any help. I have recommended increasing fiber in the diet - specifically 25-30 grams per day and adequate free water. This is more of a functional problem, she may benefit from physical therapy - specifically pelvic floor exercises. I will refer patient to PT in [place]. The patient acknowledges above. She is encouraged to return to this clinic if any worsening signs/symptoms. I have answered all questions to the patient s satisfaction and the patient has no further questions. I have confirmed and edited as necessary, the PFSH and ROS obtained by others. Consultation requested by Dr. Elizabeth Mace for an opinion regarding patient's fecal incontinence/urgency. My final recommendations will be communicated back to the requesting physician by way of shared Medical record or letter to requesting physician via [place] mail. . Diagnoses: (R15.9) Incontinence of feces, unspecified fecal incontinence type (K62.5) Rectal bleeding Return to Clinic: The patient is instructed to follow-up with me as per needed. I spent a total of 31 minutes on the date of the service which included preparing to see the patient with review of any pertinent laboratory studies/radiological imaging/medical records, [id number] patient care, obtaining oral medical history from the patient in this encounter, performing a medically appropriate examination, counseling and educating the patient/family/caregiver, and ordering and/or scheduling of medications/tests/procedures, and completing appropriate medical documentation. Chanell Givens MD documented in this encounter [facility] 01-30-2023 Nurse Note REVIEW OF SYSTEMS: General: The patient denies fatigue, denies weight loss, denies weight gain, denies feeling hot, and NOTES feelings of cold. Eyes: The patient denies glaucoma, denies eye injury/surgery, wears glasses or contacts. Ear/Nose/Throat: The patient denies allergies, denies hayfever, denies ear infections, and denies bloody noses. Cardiovascular: The patient denies chest pain, NOTES heart disease, denies high blood pressure, NOTES cardiac stent, denies prior heart attack, denies irregular heart beat, denies high cholesterol, denies poor circulation, denies heart failure, other cardiac issues, denies claudication, NOTES cold feet, denies peripheral arterial stent. Respiratory: The patient denies tuberculosis, denies pneumonia, denies frequent cough, denies pulmonary embolism, denies shortness of breath, and denies coughing up blood. Gastrointestinal: The patient denies difficulty swallowing, denies acid reflux, denies ulcers, denies vomiting, denies jaundice/hepatitis, denies gallbladder problems, denies black or tarry stools, denies hemorrhoids, NOTES bleeding from rectum, denies diverticulitis, denies constipation, denies diarrhea, NOTES loss of stool control, and denies hernias. Kidney/Bladder: The patient denies kidney stones, denies urine infections, and denies bloody urine. Skin: The patient denies a history of skin cancer, denies bleeding/changing moles, and denies a history of skin rash. Neurologic: The patient denies a history of epilepsy/convulsions, denies headaches, denies head/spinal injuries, and denies stroke/TIA. Psychiatric: The patient denies psychiatric medications, NOTES depression, and denies voices, denies substance abuse. Endocrine: The patient NOTES thyroid disorders, denies diabetes, and denies hormonal problems. Hematologic: The patient NOTES a history of bruising, denies bleeding, and denies anemia, denies blood clots. Infections: The patient denies a history of measles and mumps, denies rheumatic fever, and denies sexually transmitted diseases. Musculoskeletal: The patient denies back pain/injury, NOTES back problems, denies sciatica, NOTES knee/foot trouble, denies arthritis, or denies gout. When was patient's last Mammogram screening? Believes it was 3 or 4 years ago Last Colonoscopy: 08/08/21 Angy Rodgers, RN documented in this encounter [facility] 01-30-2023 History of Present illness Narrative Radiology Service Progress Note PATIENT NAME: Lisette Enamorado DATE OF SERVICE: January 30, 2023 TIME: 9:13 AM PATIENT IDENTITY VERIFICATION COMPLETED USING TWO (2) IDENTIFIERS: Name and Date of confirmed by patient verbally. FALL SCREENING: Has the patient had 2 falls in the last year or 1 fall with injury or currently using an Ambulatory Assistive Device (Walker, Cane, Wheelchair, Crutches, etc.)? No PATIENT GENDER DATA: Female. status: : No status: NO. PATIENT RELEVANT IMPLANT DATA REVIEWED: Not Applicable RADIOLOGY DEPARTMENT: Ultrasound PERIPHERAL IV DATA: Not applicable SIGNED BY: Mattie Abreu RDMS January 30, 2023 9:13 AM documented in this encounter [facility] 01-30-2023 History of Present illness Narrative Radiology Service Progress Note PATIENT NAME: Lisette Enamorado DATE OF SERVICE: January 30, 2023 TIME: 8:51 AM PATIENT IDENTITY VERIFICATION COMPLETED USING TWO (2) IDENTIFIERS: Name and Date of confirmed by patient verbally. FALL SCREENING: Has the patient had 2 falls in the last year or 1 fall with injury or currently using an Ambulatory Assistive Device (Walker, Cane, Wheelchair, Crutches, etc.)? No PATIENT GENDER DATA: Female. status: : No status: NO. PATIENT RELEVANT IMPLANT DATA REVIEWED: Yes RADIOLOGY DEPARTMENT: CT; Exam(s) Completed: Chest PERIPHERAL IV DATA: Not applicable SIGNED BY: RT Summer(R) January 30, 2023 8:51 AM documented in this encounter [facility] 01-18-2023 Note HNO ID: [id number] Author: Elizabeth Mace MD Service: ? Author Type: Physician Type: Progress Notes Filed: 01/18/2023 5:16 PM Note Text: Patient presents with: ED Follow-up HPI: Patient presents today for office visit for er follow up. HOSPITAL/ER FOLLOW UP: Reason for visit: rectal bleeding Which facility: [facility] Date of visit: 01/11/23 Diagnosis: GI bleeding, Colitis, hematochezia, abd pain Testing done: CT scan abd/pelvis, CBC, CMP, Magnesium, troponin, PT/INR, PTT Treatment given: cipro 500 twice a daily and metronidazole three times daily Current symptoms: just saw cardio for regular follow up and has to go back for 70% blockage in carotid [facility], concerned about her liver ER mentioned it to her Denies any more abd pain or bleeding No fever or chills. No changes in appetite. No nausea or vomiting. No black or bloody stools. Had multiple liver and kidney cysts. Some too small to characterize. Recommeded to follow those. Had one lung nodule at [address] of chest for better characterization. MEDICATIONS: Current Outpatient Medications Medication Sig trospium (SANCTURA) 20 mg tablet Take 1 tablet by mouth once daily. fluticasone (FLONASE) 50 mcg/actuation nasal spray Use 2 Sprays in each nostril once daily. Rinse mouth after use. levothyroxine (SYNTHROID) 75 mcg tablet Take 1 tablet by mouth daily before breakfast. amLODIPine (NORVASC) 5 mg tablet Take 1 tablet by mouth once daily. metoprolol tartrate, short acting, (LOPRESSOR) 50 mg tablet Take 1 tablet by mouth three times daily. betamethasone dipropionate, augmented (DIPROLENE) 0.05 % cream cyclobenzaprine (FLEXERIL) 10 mg tablet Take 0.5 tablets by mouth three times daily as needed for muscle spasm or pain. esomeprazole (NEXIUM) 40 mg capsule Take 1 capsule by mouth daily before breakfast. ticagrelor (BRILINTA) 90 mg tablet Take 1 tablet by mouth twice daily. ezetimibe (ZETIA) 10 mg tablet 10 mg. cholecalciferol, vitamin D3, 4,000 unit cap Take 1 Dose by mouth once daily. colestipol (COLESTID) 1 gram tablet Take 1 tablet by mouth twice daily. Dr. Roach Aspirin 81 mg Tab Take 1 tablet by mouth once daily. Take with food. No current facility-administered medications for this visit. ALLERGIES: ALLERGIES Allergen Reactions Ditropan [Oxybutyni* GI Upset Lisinopril Cough PAST MEDICAL HISTORY Diagnosis Date Coronary artery disease Diarrhea Generalized anxiety disorder Generalized osteoarthrosis, unspecified site lumbar and c-spine Hematochezia 03/31/2021 Incomplete bladder emptying 05/11/2005 Irritable bowel syndrome Pure hypercholesterolemia Thyroid disease Unspecified essential hypertension PAST SURGICAL HISTORY Procedure Laterality Date ADENOIDECTOMY PRIMARY Adenoidectomy ANTERIOR COLPORRAPHY RPR CYSTOCELE W/CYSTO Cystocele repair APPENDECTOMY >71 APPENDECTOMY HX COLONOSCOPY 08/08/2021 repeat in 5 years COLONOSCOPY FLX DX W/COLLJ SPEC WHEN PFRMD 08/2003 Colonoscopy COLONOSCOPY FLX DX W/COLLJ SPEC WHEN PFRMD 06/16/2008 Colonoscopy-repeat in -2018 COLONOSCOPY FLX DX W/COLLJ SPEC WHEN PFRMD 03/19/2014 Colonoscopy COLONOSCOPY FLX DX W/COLLJ SPEC WHEN PFRMD 08/11/2019 Colonoscopy EGD W/O BRSH SPEC VARICIES INJ 08/08/2021 ESOPHAGOGASTRODUODENOSCOPY TRANSORAL DIAGNOSTIC 08/09/2015 EGD ESOPHAGOGASTRODUODENOSCOPY TRANSORAL DIAGNOSTIC 08/11/2019 EGD LEFT HEART CATH,PERCUTANEOUS 09/26/2012 Cardiac cath, L heart [facility] - chest pain STENT PLACEMENT 03/22, 09/21 medicated cardiac stent TONSILLECTOMY HX TONSILLECTOMY PRIMARY/SECONDARY Tonsillectomy FAMILY HISTORY Problem Relation Age of Onset Heart Mother CABG x3 Hypertension Mother Breast Cancer Mother Heart Father other (lung problems) Father Social History Tobacco Use Smoking status: Never Smokeless tobacco: Never Vaping Use Vaping Use: Never used Substance Use Topics Alcohol use: Yes Comment: rare glass of wine Drug use: No Reviewed current medications, allergies, past medical history, surgical history, family history and social history today. REVIEW OF SYSTEMS All other reviewed and negative other than HPI. VITALS: BP 95/56 Pulse 75 Wt 64.4 kg (142 lb) SpO2 96% BMI 25.97 kg/m? Last 4 Encounter Wt Readings: Date: Wt: 11/02/2022 66.7 kg (147 lb) 10/13/2022 67.1 kg (148 lb) 07/25/2022 66.7 kg (147 lb) 07/10/2022 65.3 kg (144 lb) PHYSICAL EXAMINATION: General appearance: Well appearing, alert, in no acute distress, well-hydrated, well nourished. Skin: Skin color, texture, turgor normal, no suspicious rashes or lesions Head: Normocephalic, no masses, lesions, tenderness or abnormalities Lungs: Lungs clear to auscultation. No wheezing, rhonchi, rales Heart: RRR without murmur, gallop, or rubs. No ectopy Abdomen: Normal abdominal exam, Abdomen soft, non-tender. Bowel sounds normal. No masses, organome (more content not included)... [facility] 01-18-2023 History of Present illness Narrative Patient presents with: ED Follow-up HPI: Patient presents today for office visit for er follow up. HOSPITAL/ER FOLLOW UP: Reason for visit: rectal bleeding Which facility: [facility] Date of visit: 01/11/23 Diagnosis: GI bleeding, Colitis, hematochezia, abd pain Testing done: CT scan abd/pelvis, CBC, CMP, Magnesium, troponin, PT/INR, PTT Treatment given: cipro 500 twice a daily and metronidazole three times daily Current symptoms: just saw cardio for regular follow up and has to go back for 70% blockage in carotid [facility], concerned about her liver ER mentioned it to her Denies any more abd pain or bleeding No fever or chills. No changes in appetite. No nausea or vomiting. No black or bloody stools. Had multiple liver and kidney cysts. Some too small to characterize. Recommeded to follow those. Had one lung nodule at [address] of chest for better characterization. MEDICATIONS: Current Outpatient Medications Medication Sig trospium (SANCTURA) 20 mg tablet Take 1 tablet by mouth once daily. fluticasone (FLONASE) 50 mcg/actuation nasal spray Use 2 Sprays in each nostril once daily. Rinse mouth after use. levothyroxine (SYNTHROID) 75 mcg tablet Take 1 tablet by mouth daily before breakfast. amLODIPine (NORVASC) 5 mg tablet Take 1 tablet by mouth once daily. metoprolol tartrate, short acting, (LOPRESSOR) 50 mg tablet Take 1 tablet by mouth three times daily. betamethasone dipropionate, augmented (DIPROLENE) 0.05 % cream cyclobenzaprine (FLEXERIL) 10 mg tablet Take 0.5 tablets by mouth three times daily as needed for muscle spasm or pain. esomeprazole (NEXIUM) 40 mg capsule Take 1 capsule by mouth daily before breakfast. ticagrelor (BRILINTA) 90 mg tablet Take 1 tablet by mouth twice daily. ezetimibe (ZETIA) 10 mg tablet 10 mg. cholecalciferol, vitamin D3, 4,000 unit cap Take 1 Dose by mouth once daily. colestipol (COLESTID) 1 gram tablet Take 1 tablet by mouth twice daily. Dr. Roach Aspirin 81 mg Tab Take 1 tablet by mouth once daily. Take with food. No current facility-administered medications for this visit. ALLERGIES: ALLERGIES Allergen Reactions Ditropan [Oxybutyni* GI Upset Lisinopril Cough PAST MEDICAL HISTORY Diagnosis Date Coronary artery disease Diarrhea Generalized anxiety disorder Generalized osteoarthrosis, unspecified site lumbar and c-spine Hematochezia 03/31/2021 Incomplete bladder emptying 05/11/2005 Irritable bowel syndrome Pure hypercholesterolemia Thyroid disease Unspecified essential hypertension PAST SURGICAL HISTORY Procedure Laterality Date ADENOIDECTOMY PRIMARY <AGE 11 Adenoidectomy ANTERIOR COLPORRAPHY RPR CYSTOCELE W/CYSTO Cystocele repair APPENDECTOMY >71 APPENDECTOMY HX COLONOSCOPY 08/08/2021 repeat in 5 years COLONOSCOPY FLX DX W/COLLJ SPEC WHEN PFRMD 08/2003 Colonoscopy COLONOSCOPY FLX DX W/COLLJ SPEC WHEN PFRMD 06/16/2008 Colonoscopy-repeat in -2018 COLONOSCOPY FLX DX W/COLLJ SPEC WHEN PFRMD 03/19/2014 Colonoscopy COLONOSCOPY FLX DX W/COLLJ SPEC WHEN PFRMD 08/11/2019 Colonoscopy EGD W/O RUST SPEC VARICIES INJ 08/08/2021 ESOPHAGOGASTRODUODENOSCOPY TRANSORAL DIAGNOSTIC 08/09/2015 EGD ESOPHAGOGASTRODUODENOSCOPY TRANSORAL DIAGNOSTIC 08/11/2019 EGD LEFT HEART CATH,PERCUTANEOUS 09/26/2012 Cardiac cath, L heart [facility] - chest pain STENT PLACEMENT 03/22, 09/21 medicated cardiac stent TONSILLECTOMY HX TONSILLECTOMY PRIMARY/SECONDARY <AGE 11 Tonsillectomy FAMILY HISTORY Problem Relation Age of Onset Heart Mother CABG x3 Hypertension Mother Breast Cancer Mother Heart Father other (lung problems) Father Social History Tobacco Use Smoking status: Never Smokeless tobacco: Never Vaping Use Vaping Use: Never used Substance Use Topics Alcohol use: Yes Comment: rare glass of wine Drug use: No Reviewed current medications, allergies, past medical history, surgical history, family history and social history today. REVIEW OF SYSTEMS All other reviewed and negative other than HPI. VITALS: BP 95/56 Pulse 75 Wt 64.4 kg (142 lb) SpO2 96% BMI 25.97 kg/m Last 4 Encounter Wt Readings: Date: Wt: 11/02/2022 66.7 kg (147 lb) 10/13/2022 67.1 kg (148 lb) 07/25/2022 66.7 kg (147 lb) 07/10/2022 65.3 kg (144 lb) PHYSICAL EXAMINATION: General appearance: Well appearing, alert, in no acute distress, well-hydrated, well nourished. Skin: Skin color, texture, turgor normal, no suspicious rashes or lesions Head: Normocephalic, no masses, lesions, tenderness or abnormalities Lungs: Lungs clear to auscultation. No wheezing, rhonchi, rales Heart: RRR without murmur, gallop, or rubs. No ectopy Abdomen: Normal abdominal exam, Abdomen soft, non-tender. Bowel sounds normal. No masses, organomegaly Extremities: No deformities, edema, skin discoloration, clubbing or cyanosis. Good capillary refill. Musculoskeletal: No joint swelling, deformity, or tenderness ASSESSMENT/PLAN: 1. Colitis - ICD9: 558.9, ICD10: K52.9 (primary diagnosis) - finish antibiotics. Do labs. Follow with surgery. - CBC + DIFF - CONSULT TO GENERAL SURGERY 2. Rectal bleeding - ICD9: 569.3, ICD10: K62.5 - call if recurs. - CBC + DIFF - CONSULT TO GENERAL SURGERY 3. Liver cyst - ICD9: 573.8, ICD10: K76.89 - do us in is months. - US ABD RIGHT UPPER QUADRANT 4. Kidney cyst, acquired - ICD9: 593.2, ICD10: N28.1 - do us in six months. - US KIDNEY/BLADDER 5. Lung nodule - ICD9: 793.11, ICD10: R91.1 - do ct of chest 6. Lung nodules - ICD9: 793.19, ICD10: R91.8 - CT CHEST WO IVCON 7. Hyperlipidemia, unspecified hyperlipidemia type - ICD9: 272.4, ICD10: E78.5 - Control undetermined, due for labs - Continue current medications - COMP METABOLIC PANEL - LIPID PANEL BASIC Elizabeth Mace MD Follow up with IM team for check up. Or prn. documented in this encounter [facility] 01-09-2023 Miscellaneous Notes Patient reports she is in [place], and 2 days ago had a lot of blood in stool twice, the 2nd time was mostly blood with clots and abdominal cramping. Reports she is taking low dose asa and brillinta. Protocol recommends ER. Patient agreeable to have her son take her to ER for evaluation. Reason for Disposition [1] MODERATE rectal bleeding (small blood clots, passing blood without stool, or toilet water turns red) AND [2] more than once a day Answer Assessment - Initial Assessment Questions 1. APPEARANCE of BLOOD: 2 days ago noted bright red blood in stool first time, the 2nd time had more bright red blood than stool with clots. 2. AMOUNT: A lot all over sides of bowl and seat. Before happened had bad abdominal cramps. Reports still has some abdominal cramping today, and feels full today, like she needs to have another BM. Had 2 BM's today that were formed and normal. Never been told she has hemorroids. Has never had this happen before. 3. FREQUENCY: 2 times, 2 days ago. Today and yesterday BM is normal. 4. ONSET: 2 days ago 5. DIARRHEA: Had diarrhea with each bloody stool twice 2 days ago. 6. CONSTIPATION: Not lately 7. RECURRENT SYMPTOMS: Never had blood in stools before. 8. BLOOD THINNERS: Aspirin low dose, brillinta, 9. OTHER SYMPTOMS: Abdominal cramping today, no colon pain, no nausea or vomiting. For a short time 2 days ago felt dizzy-resolved quickly. Today feels tired. Is in [place] visiting her son. No fever. 10. : Post menopausal. Protocols used: Rectal [id number] documented in this encounter [facility] 12-11-2022 Miscellaneous Notes Call placed to patient and updated on providers continued recommendation for ER treatment. Patient continues to have back pain that radiates to chest with sharp shooting pains when she takes a deep breath. Patient will continue to wait to hear back from planning division superintendent. She reports that the message stated they would get back with her in the next 24 hours. Patient also reports that she took an additional 2 aspirins and asks if this nurse feels that would help with anything. This nurse reports without knowing the cause of the pain can't speak on treatment and again re-iterates the importance of seeking ER examination now and patient reports she is out with daughter and it will just have to wait. Closing encounter no further action needed at this time. Clari Ford RN Noted, agree with ED Patient calls to report left upper back pain that radiates to left chest and left shoulder/arm with sharp pain with deep breaths. Nurse triage completed. Protocol recommends go to ED now. Patient at first agreed and would have someone transport her then said she would contact planning division superintendent for further advise. Care advice reviewed. Patient verbalizes understanding. Reason for Disposition Pain also in shoulder(s) or arm(s) or jaw (Exception: pain is clearly made worse by movement) [1] Pain in the upper back over the ribs (rib cage) AND [2] radiates (travels, goes) into chest Answer Assessment - Initial Assessment Questions 1. ONSET: Patient reports pain below the left shoulder blade that radiates to the chest and up into left shoulder that started last week. Patient reports sharp pain with deep breath. Patient denies movement making the pain worse. 2. LOCATION: Upper back on the left side. 3. SEVERITY: - MODERATE (4-7): interferes with normal activities or awakens from sleep 4. PATTERN: Intermittent with cough or straining to go to the bathroom. Patient reports sharp pain with a deep breath. 5. DURATION: It's hard to say. 6. SEVERITY: - MODERATE (4-7): interferes with normal activities or awakens from sleep 7. CARDIAC RISK FACTORS: HTN, CAD, HLD, PVD 8. PULMONARY RISK FACTORS: No history of blood clots in lung, asthma, emphysema, or control pills. 9. CAUSE: Cough 10. OTHER SYMPTOMS: Dry non-productive cough. Sharp pain with deep breath. Answer Assessment - Initial Assessment Questions 1. ONSET: Patient reports pain below the left shoulder blade that radiates to the chest and up into left shoulder that started last week. 2. LOCATION: Upper back on the left side. 3. SEVERITY: - MODERATE (4-7): interferes with normal activities or awakens from sleep 4. PATTERN: Intermittent with cough or straining to go to the bathroom. Patient reports sharp pain with a deep breath. 5. RADIATION: Radiates towards chest and down left arm. 6. CAUSE: Cough--Dry 7. BACK OVERUSE: No 8. MEDICATIONS: Daily Aspirin but doesn't know if it has helped any. 9. NEUROLOGIC SYMPTOMS: No weakness, numbness, or problems with bowel or bladder control. 10. OTHER SYMPTOMS: No fever, abdominal pain, burning with urination, or blood in urine. Protocols used: Back Qtol-WIINP-LR, Chest Amva-QRIHU-LS documented in this encounter [facility] 11-02-2022 Note HNO ID: [id number] Author: Mamie Peter MD Service: ? Author Type: Physician Type: Progress Notes Filed: 11/02/2022 9:31 AM Note Text: Reason for Visit Patient presents with: Recheck: 3 months Lisette Enamorado is a 82 year old female who presents here today for Above Complaints.. Health Maintenance ADVANCE DIRECTIVE DISCUSSION HPI Reviewed labs Creat is on the higher side this time, we will recheck it. Denies regular use of nsaids Pulmonary nodule- never a smoker and never worked in coal mines or asbestosis. Does not drink , but age, gender do increase her risk. Ct done last week showed : There are several sub-6 mm solid pulmonary nodules. High statistical likelihood of incidental benign findings We will follow up in 3 months Urinary frequency: has been having increased frequency of urinary for over the past few years mainly in the night which is getting worse this past month. Last night she was up 7 times. She has cut down on the coffee recently, have a cup of coffee at dinner, and a couple cups in the night. Denies burning. She has tried oxy and had significant gi upset with it. She has urge incontinence and stress incontinence both. Has been drinking a lot of water recently for the leg cramps She also has been leaking stool, this started after she was drinking a lot of water. She gets a lot of gas. And bloating Not on metformin. No problem-specific Assessment AND Plan notes found for this encounter. PAST MEDICAL HISTORY Diagnosis Date Coronary artery disease Diarrhea Generalized anxiety disorder Generalized osteoarthrosis, unspecified site lumbar and c-spine Hematochezia 03/31/2021 Incomplete bladder emptying 05/11/2005 Irritable bowel syndrome Pure hypercholesterolemia Thyroid disease Unspecified essential hypertension PAST SURGICAL HISTORY Procedure Laterality Date ADENOIDECTOMY PRIMARY Adenoidectomy ANTERIOR COLPORRAPHY RPR CYSTOCELE W/CYSTO Cystocele repair APPENDECTOMY >71 APPENDECTOMY HX COLONOSCOPY 08/08/2021 repeat in 5 years COLONOSCOPY FLX DX W/COLLJ SPEC WHEN PFRMD 08/2003 Colonoscopy COLONOSCOPY FLX DX W/COLLJ SPEC WHEN PFRMD 06/16/2008 Colonoscopy-repeat in -2018 COLONOSCOPY FLX DX W/COLLJ SPEC WHEN PFRMD 03/19/2014 Colonoscopy COLONOSCOPY FLX DX W/COLLJ SPEC WHEN PFRMD 08/11/2019 Colonoscopy EGD W/O BRSH SPEC VARICIES INJ 08/08/2021 ESOPHAGOGASTRODUODENOSCOPY TRANSORAL DIAGNOSTIC 08/09/2015 EGD ESOPHAGOGASTRODUODENOSCOPY TRANSORAL DIAGNOSTIC 08/11/2019 EGD LEFT HEART CATH,PERCUTANEOUS 09/26/2012 Cardiac cath, L heart [facility] - chest pain STENT PLACEMENT 03/22, 09/21 medicated cardiac stent TONSILLECTOMY HX TONSILLECTOMY PRIMARY/SECONDARY Tonsillectomy FAMILY HISTORY Problem Relation Age of Onset Heart Mother CABG x3 Hypertension Mother Breast Cancer Mother Heart Father other (lung problems) Father Social History Tobacco Use Smoking status: Never Smokeless tobacco: Never Vaping Use Vaping Use: Never used Substance Use Topics Alcohol use: Yes Comment: rare glass of wine Drug use: No Past medical history, appointments, medications, allergies reviewed. Pertinent Lab/Diagnostic Studies are reviewed and discussed today Current Outpatient Medications: levothyroxine (SYNTHROID) 75 mcg tablet metoprolol tartrate, short acting, (LOPRESSOR) 50 mg tablet esomeprazole (NEXIUM) 40 mg capsule ticagrelor (BRILINTA) 90 mg tablet ezetimibe (ZETIA) 10 mg tablet cholecalciferol, vitamin D3, 4,000 unit cap colestipol (COLESTID) 1 gram tablet Aspirin 81 mg Tab fluticasone (FLONASE) 50 mcg/actuation nasal spray amLODIPine (NORVASC) 5 mg tablet betamethasone dipropionate, augmented (DIPROLENE) 0.05 % cream cyclobenzaprine (FLEXERIL) 10 mg tablet Review of Systems CONSTITUTIONAL: No fevers, chills night sweats, unintended weight loss CARDIOVASCULAR: No chest pain, dyspnea, palpitations, orthopnea, PND, ankle edema. PULM: No dyspnea, unexplained cough. GI: No dysphagia/odynophagia, problematic reflux, constipation, diarrhea, changes in stool habits, hematochezia, melena. : No new urinary complaints, including dysuria, gross hematuria or pyuria. NEURO: No new balance problems, peripheral weakness/paresthesias or numbness of concern. Physical Exam BP 122/66 Pulse 78 Resp 14 Wt 66.7 kg (147 lb) SpO2 98% BMI 26.89 kg/m? General appearance: Well appearing, alert, in no acute distress, well nourished. Skin: Skin color, texture, turgor normal, no suspicious rashes or lesions Head: Normocephalic, no masses, lesions, tenderness or abnormalities Eyes: Anicteric sclera. Pupils are equally round and reactive to light. Extraocular movements are intact. Lungs: Lungs clear to auscultation. No wheezing, rhonchi, rales Heart: RRR without murmur, gallop, or rubs. Extremities: No deformities, edema, skin discoloration, clubbing or cyanosis. Good capillary ref (more content not included)... [facility] 10-23-2022 Note HNO ID: [id number] Author: RT Anay(R) Service: ? Author Type: Desktop Manager Type: Progress Notes Filed: 10/23/2022 4:11 PM Note Text: Radiology Service Progress Note PATIENT NAME: Lisette Enamorado DATE OF SERVICE: October 23, 2022 TIME: 4:11 PM PATIENT IDENTITY VERIFICATION COMPLETED USING TWO (2) IDENTIFIERS: Name and Date of confirmed by patient verbally. FALL SCREENING: Has the patient had 2 falls in the last year or 1 fall with injury or currently using an Ambulatory Assistive Device (Walker, Cane, Wheelchair, Crutches, etc.)? No PATIENT GENDER DATA: Female. status: : No status: NO. PATIENT RELEVANT IMPLANT DATA REVIEWED: Yes RADIOLOGY DEPARTMENT: CT; Exam(s) Completed: Chest PERIPHERAL IV DATA: Not applicable SIGNED BY: RT Summer(R) October 23, 2022 4:11 PM [facility] 10-23-2022 History of Present illness Narrative Radiology Service Progress Note PATIENT NAME: Lisette Enamorado DATE OF SERVICE: October 23, 2022 TIME: 4:11 PM PATIENT IDENTITY VERIFICATION COMPLETED USING TWO (2) IDENTIFIERS: Name and Date of confirmed by patient verbally. FALL SCREENING: Has the patient had 2 falls in the last year or 1 fall with injury or currently using an Ambulatory Assistive Device (Walker, Cane, Wheelchair, Crutches, etc.)? No PATIENT GENDER DATA: Female. status: : No status: NO. PATIENT RELEVANT IMPLANT DATA REVIEWED: Yes RADIOLOGY DEPARTMENT: CT; Exam(s) Completed: Chest PERIPHERAL IV DATA: Not applicable SIGNED BY: RT Summer(R) October 23, 2022 4:11 PM documented in this encounter [facility] 10-13-2022 Note HNO ID: [id number] Author: Jillian Coulter APRN.HAM Service: ? Author Type: Nurse Practitioner Type: Progress Notes Filed: 10/13/2022 12:36 PM Note Text: CC: Patient presents with: Recheck: Follow up, pressure in the ears HPI Lisette Enamorado is a 82 year old female who presents today for decreased hearing. Went to lens maker for decrease in hearing thinking her hearing aides needed adjusted, which they did adjust, but per patient the lens maker said her ears were closed and there was no movement in the ear drum. Was told to follow up with PCP. Reports sneezing, occasionally feels sinus fullness to forehead and pressure achiness behind her eyes. Has had for a few months and thought it was getting better but returned. Denies fever, chills, cough, wheezing, headache, dizziness, nasal drainage, or syncope. Reports intermittent cramping to left lower extremity which causes at various times but occurs often when stretching legs. At first described it more at nighttime and moving her leg but then states it is throughout the day. Feels that her ankle and feet can get swollen specifically to her toes. Has had these symptoms for many years and there is no change in her chronic concerns. Has been told by providers previously that is a result of back issues but does not agree with this. States she thinks it is her vascular system. Denies any point tenderness, injury, redness, change in color or temperature of extremities. REVIEW OF SYSTEMS General: no fevers, no chills, no night sweats, no recurrent infections, no change in appetite, no change in energy, and no significant changes in weight Respiratory: no cough, no wheezing, no shortness of breath, no hemoptysis Cardiovascular: no chest pain, no chest pressure, no palpitations, and no swelling Neurologic: No headache, weakness, numbness, tingling, neck stiffness, tremor, vertigo, dizziness, memory loss, syncope. PAST MEDICAL HISTORY Diagnosis Date Coronary artery disease Diarrhea Generalized anxiety disorder Generalized osteoarthrosis, unspecified site lumbar and c-spine Hematochezia 03/31/2021 Incomplete bladder emptying 05/11/2005 Irritable bowel syndrome Pure hypercholesterolemia Thyroid disease Unspecified essential hypertension PAST SURGICAL HISTORY Procedure Laterality Date ADENOIDECTOMY PRIMARY Adenoidectomy ANTERIOR COLPORRAPHY RPR CYSTOCELE W/CYSTO Cystocele repair APPENDECTOMY >71 APPENDECTOMY HX COLONOSCOPY 08/08/2021 repeat in 5 years COLONOSCOPY FLX DX W/COLLJ SPEC WHEN PFRMD 08/2003 Colonoscopy COLONOSCOPY FLX DX W/COLLJ SPEC WHEN PFRMD 06/16/2008 Colonoscopy-repeat in -2018 COLONOSCOPY FLX DX W/COLLJ SPEC WHEN PFRMD 03/19/2014 Colonoscopy COLONOSCOPY FLX DX W/COLLJ SPEC WHEN PFRMD 08/11/2019 Colonoscopy EGD W/O BRSH SPEC VARICIES INJ 08/08/2021 ESOPHAGOGASTRODUODENOSCOPY TRANSORAL DIAGNOSTIC 08/09/2015 EGD ESOPHAGOGASTRODUODENOSCOPY TRANSORAL DIAGNOSTIC 08/11/2019 EGD LEFT HEART CATH,PERCUTANEOUS 09/26/2012 Cardiac cath, L heart [facility] - chest pain STENT PLACEMENT 03/22, 09/21 medicated cardiac stent TONSILLECTOMY HX TONSILLECTOMY PRIMARY/SECONDARY Tonsillectomy ALLERGIES Ditropan [Oxybutynin Chloride] and Lisinopril MEDICATIONS levothyroxine (SYNTHROID) 75 mcg tablet Take 1 tablet by mouth daily before breakfast. amLODIPine (NORVASC) 5 mg tablet Take 1 tablet by mouth once daily. metoprolol tartrate, short acting, (LOPRESSOR) 50 mg tablet Take 1 tablet by mouth three times daily. betamethasone dipropionate, augmented (DIPROLENE) 0.05 % cream cyclobenzaprine (FLEXERIL) 10 mg tablet Take 0.5 tablets by mouth three times daily as needed for muscle spasm or pain. esomeprazole (NEXIUM) 40 mg capsule Take 1 capsule by mouth daily before breakfast. ticagrelor (BRILINTA) 90 mg tablet Take 1 tablet by mouth twice daily. ezetimibe (ZETIA) 10 mg tablet 10 mg. cholecalciferol, vitamin D3, 4,000 unit cap Take 1 Dose by mouth once daily. colestipol (COLESTID) 1 gram tablet Take 1 tablet by mouth twice daily. Dr. Roach Aspirin 81 mg Tab Take 1 tablet by mouth once daily. Take with food. FAMILY HISTORY Problem Relation Age of Onset Heart Mother CABG x3 Hypertension Mother Breast Cancer Mother Heart Father other (lung problems) Father Social History Tobacco Use Smoking status: Never Smokeless tobacco: Never Vaping Use Vaping Use: Never used Substance Use Topics Alcohol use: Yes Comment: rare glass of wine Drug use: No PHYSICAL EXAM BP 116/66 Pulse 64 Temp 36.9 ?C (98.4 ?F) (Temporal) Resp 16 Wt 67.1 kg (148 lb) SpO2 98% BMI 27.07 kg/m? General Appearance: well appearing, in no acute distress, alert Skin: Skin color, texture, turgor normal for age; Eyes: conjunctiva pink and moist, no icterus, sclera white, non-injected Ears: external ears normal to inspection and palpation, canals clear, Left tympanic membrane n (more content not included)... [facility] 10-13-2022 History of Present illness Narrative CC: Patient presents with: Recheck: Follow up, pressure in the ears HPI Lisette Enamorado is a 82 year old female who presents today for decreased hearing. Went to lens maker for decrease in hearing thinking her hearing aides needed adjusted, which they did adjust, but per patient the lens maker said her ears were closed and there was no movement in the ear drum. Was told to follow up with PCP. Reports sneezing, occasionally feels sinus fullness to forehead and pressure achiness behind her eyes. Has had for a few months and thought it was getting better but returned. Denies fever, chills, cough, wheezing, headache, dizziness, nasal drainage, or syncope. Reports intermittent cramping to left lower extremity which causes at various times but occurs often when stretching legs. At first described it more at nighttime and moving her leg but then states it is throughout the day. Feels that her ankle and feet can get swollen specifically to her toes. Has had these symptoms for many years and there is no change in her chronic concerns. Has been told by providers previously that is a result of back issues but does not agree with this. States she thinks it is her vascular system. Denies any point tenderness, injury, redness, change in color or temperature of extremities. REVIEW OF SYSTEMS General: no fevers, no chills, no night sweats, no recurrent infections, no change in appetite, no change in energy, and no significant changes in weight Respiratory: no cough, no wheezing, no shortness of breath, no hemoptysis Cardiovascular: no chest pain, no chest pressure, no palpitations, and no swelling Neurologic: No headache, weakness, numbness, tingling, neck stiffness, tremor, vertigo, dizziness, memory loss, syncope. PAST MEDICAL HISTORY Diagnosis Date Coronary artery disease Diarrhea Generalized anxiety disorder Generalized osteoarthrosis, unspecified site lumbar and c-spine Hematochezia 03/31/2021 Incomplete bladder emptying 05/11/2005 Irritable bowel syndrome Pure hypercholesterolemia Thyroid disease Unspecified essential hypertension PAST SURGICAL HISTORY Procedure Laterality Date ADENOIDECTOMY PRIMARY <AGE 11 Adenoidectomy ANTERIOR COLPORRAPHY RPR CYSTOCELE W/CYSTO Cystocele repair APPENDECTOMY >71 APPENDECTOMY HX COLONOSCOPY 08/08/2021 repeat in 5 years COLONOSCOPY FLX DX W/COLLJ SPEC WHEN PFRMD 08/2003 Colonoscopy COLONOSCOPY FLX DX W/COLLJ SPEC WHEN PFRMD 06/16/2008 Colonoscopy-repeat in -2018 COLONOSCOPY FLX DX W/COLLJ SPEC WHEN PFRMD 03/19/2014 Colonoscopy COLONOSCOPY FLX DX W/COLLJ SPEC WHEN PFRMD 08/11/2019 Colonoscopy EGD W/O BRSH SPEC VARICIES INJ 08/08/2021 ESOPHAGOGASTRODUODENOSCOPY TRANSORAL DIAGNOSTIC 08/09/2015 EGD ESOPHAGOGASTRODUODENOSCOPY TRANSORAL DIAGNOSTIC 08/11/2019 EGD LEFT HEART CATH,PERCUTANEOUS 09/26/2012 Cardiac cath, L heart [facility] - chest pain STENT PLACEMENT 03/22, 09/21 medicated cardiac stent TONSILLECTOMY HX TONSILLECTOMY PRIMARY/SECONDARY <AGE 11 Tonsillectomy ALLERGIES Ditropan [Oxybutynin Chloride] and Lisinopril MEDICATIONS levothyroxine (SYNTHROID) 75 mcg tablet Take 1 tablet by mouth daily before breakfast. amLODIPine (NORVASC) 5 mg tablet Take 1 tablet by mouth once daily. metoprolol tartrate, short acting, (LOPRESSOR) 50 mg tablet Take 1 tablet by mouth three times daily. betamethasone dipropionate, augmented (DIPROLENE) 0.05 % cream cyclobenzaprine (FLEXERIL) 10 mg tablet Take 0.5 tablets by mouth three times daily as needed for muscle spasm or pain. esomeprazole (NEXIUM) 40 mg capsule Take 1 capsule by mouth daily before breakfast. ticagrelor (BRILINTA) 90 mg tablet Take 1 tablet by mouth twice daily. ezetimibe (ZETIA) 10 mg tablet 10 mg. cholecalciferol, vitamin D3, 4,000 unit cap Take 1 Dose by mouth once daily. colestipol (COLESTID) 1 gram tablet Take 1 tablet by mouth twice daily. Dr. Roach Aspirin 81 mg Tab Take 1 tablet by mouth once daily. Take with food. FAMILY HISTORY Problem Relation Age of Onset Heart Mother CABG x3 Hypertension Mother Breast Cancer Mother Heart Father other (lung problems) Father Social History Tobacco Use Smoking status: Never Smokeless tobacco: Never Vaping Use Vaping Use: Never used Substance Use Topics Alcohol use: Yes Comment: rare glass of wine Drug use: No PHYSICAL EXAM BP 116/66 Pulse 64 Temp 36.9 C (98.4 F) (Temporal) Resp 16 Wt 67.1 kg (148 lb) SpO2 98% BMI 27.07 kg/m General Appearance: well appearing, in no acute distress, alert Skin: Skin color, texture, turgor normal for age; Eyes: conjunctiva pink and moist, no icterus, sclera white, non-injected Ears: external ears normal to inspection and palpation, canals clear, Left tympanic membrane normal. , Right tympanic membrane normal Nose/sinus: Nares normal. Septum midline. Mucosa normal. No drainage., No sinus tenderness Neck: Thyroid normal size and symmetric without palpable nodules, Neck supple, No adenopathy Oropharynx: tongue midline and normal, soft palate, uvula, and tonsils normal, palpation of salivary glands negative Lymph nodes: No cervical lymphadenopathy and No supraclavicular lymphadenopathy Back: No pain to palpation, Full and painless ROM including flexion, extension, lateral side bending and rotation, Reflexes 2+ and symmetric Lungs: Lungs clear to auscultation. No wheezing, rhonchi, rales. Heart: RRR without murmur, gallop, or rubs. No ectopy Abdomen: Abdomen soft, non-tender. Bowel sounds normal. No masses, organomegaly BLE Extremities: No deformities, skin discoloration, clubbing or cyanosis. Good capillary refill. Palpable pulses throughout LLE. Slight nonpitting edema to Left ankle but no pain, weakness or decreased ROM. Reports generalized tenderness to all areas of LLE stating her skin feels like a bruise Neurological: Gait normal. Reflexes normal and symmetric. Sensation grossly intact. Health maintenance reviewed with patient: ADVANCE DIRECTIVE DISCUSSION due on 06/11/2022 COVID-19 VACCINE(2 - Booster for Marybel series) due on 12/08/2022 LDL CHOLESTEROL due on 12/08/2022 INFLUENZA(Season Ended) due on 02/09/2023 DIABETES SCREEN due on 12/08/2024 COLORECTAL CANCER SCREENING due on 08/08/2026 DTAP,TDAP,TD(3 - Tdap) due on 08/25/2027 BONE DENSITY Completed DEPRESSION ASSESSMENT Completed SHINGRIX VACCINE Completed PNEUMOCOCCAL: 65+ Completed DATA REVIEWED: No new labs ASSESSMENT/PLAN: 1. Muscle cramps - ICD9: 729.82, ICD10: R25.2 (primary diagnosis) - unsure on cause, lumbar xray last year showing severe lumbar degenerative changes. Pulses palpable and no sign of decreased circulation but does have history of PVD. Will do HERNAN to further evaluate. With concerns being chronic without change and no point tenderness or redness, concern for DVT is very low and unlikely - BASIC METABOLIC PNL - MAGNESIUM BLD - CBC + DIFF - IRON + TIBC - FERRITIN BLD - HERNAN 2. RLS (restless legs syndrome) - ICD9: 333.94, ICD10: G25.81 As above - CBC + DIFF - IRON + TIBC - FERRITIN BLD 3. Sinus pressure - ICD9: 478.19, ICD10: J34.89 No sign of current infection but will start on flonase to see if this will decrease any sinus inflammation and ease ear symptoms. If no improvement will need to see ENT 4. Dysfunction of Eustachian tube, unspecified laterality - ICD9: 381.81, ICD10: H69.80 As above 5. PVD (peripheral vascular disease) (HCC) - ICD9: 443.9, ICD10: I73.9 See #1 - PVR ANK PRESS [facility] Prescription instructions reviewed with patient as applicable. Potential red flag symptoms discussed with the patient. Reviewed appropriate action plan to take if red flag symptoms occur. Patient agreeable to treatment plan. Jillian Coulter APRN.CNP documented in this encounter [facility] 10-10-2022 Note Patient Outreach (IN TMMN) LISETTE ENAMORADO ([id number]) 1940 F Date Time Provider Department 10/10/22 MAMIE PETER During your visit today, we recorded the following information about you: Allergies As of Date: 10/10/2022 Noted Allergy Reaction DITROPAN (OXYBUTYNIN CHLORIDE) 02/24/2019 8 - GI Upset LISINOPRIL 06/30/2011 3 - Cough Date Reviewed: 07/25/2022 Reviewed by: Shima Boucher LPN - Fully Assessed Visit Diagnoses:Hypothyroidism [E03.9] Hypertensive kidney disease with chronic kidney disease stage III (HCC) [I12.9, N18.30] Order(s):TSH BLD [SQTS] Order #: [id number] FUTURE CBC [SQCBC] Order #: [id number] FUTURE Prescriptions as of 10/13/2022 - levothyroxine (SYNTHROID) 75 mcg tablet Take 1 tablet by mouth daily before breakfast. - amLODIPine (NORVASC) 5 mg tablet Take 1 tablet by mouth once daily. - metoprolol tartrate, short acting, (LOPRESSOR) 50 mg tablet Take 1 tablet by mouth three times daily. - betamethasone dipropionate, augmented (DIPROLENE) 0.05 % cream - cyclobenzaprine (FLEXERIL) 10 mg tablet Take 0.5 tablets by mouth three times daily as needed for muscle spasm or pain. - esomeprazole (NEXIUM) 40 mg capsule Take 1 capsule by mouth daily before breakfast. - ticagrelor (BRILINTA) 90 mg tablet Take 1 tablet by mouth twice daily. - ezetimibe (ZETIA) 10 mg tablet 10 mg. - cholecalciferol, vitamin D3, 4,000 unit cap Take 1 Dose by mouth once daily. - colestipol (COLESTID) 1 gram tablet Take 1 tablet by mouth twice daily. Dr. Roach - Aspirin 81 mg Tab Take 1 tablet by mouth once daily. Take with food. Problem List As Of Date 10/10/2022 Noted Resolved INCOMPLETE BLADDER EMPTYING [R33.9] 05/11/2005 Essential hypertension [I10] History of IBS [Z87.19] GENERALIZED ANXIETY DIS [F41.1] GENERAL OSTEOARTHROSIS [M15.9] RETENTION OF URINE UNSPEC [R33.9] 08/22/2005 CERVICALGIA [M54.2] 07/24/2006 DIARRHEA NOS [R19.7] 06/16/2008 DIVERTICULOSIS OF COLON W/O BLEED [K57.30] 06/16/2008 Bilateral carotid artery stenosis [I65.23] 06/10/2009 Coronary artery disease involving [place]*01/20/2010 Unspecified Myalgia and Myositis [HWB8706] 02/28/2010 Sleep apnea [G47.30] 10/18/2011 Onychia and paronychia of toe [L03.039] 02/20/2012 Lumbago [M54.50] 04/30/2012 Bursitis of left shoulder [M75.52] 08/22/2012 Right cervical radiculopathy [M54.12] 08/22/2012 Right carpal tunnel syndrome [G56.01] 08/22/2012 Hyperlipidemia [E78.5] 09/17/2012 Hypothyroidism [E03.9] 09/17/2012 Sensorineural hearing loss, bilateral [H90.3] 02/19/2015 Otalgia [H92.09] 02/19/2015 Bilateral impacted cerumen [H61.23] 02/19/2015 CKD (chronic kidney disease) stage 3, GFR 30-59*06/27/2018 PVD (peripheral vascular disease) (HCC) [I73.9] 07/28/2019 Grade II diastolic dysfunction [I51.89] 07/28/2019 Heme positive stool [R19.5] 07/28/2019 Hypertensive kidney disease with chronic kidney*10/26/2021 Hiatal hernia [K44.9] 07/25/2022 Encounter Status:Closed by NICK GONZALEZ on 10/13/22 [facility] 08-19-2022 Miscellaneous Notes Spoke to Paola, given below recommendation, will call if she has any acid reflux s/s. Current medication is helping. Ashley Jackson LPN Left message for return call. Please inform patient that if she has any gi symptoms of reflux then she should be scoped according to the surgeon who scoped her last year , Else it can wait Regards, Mamie Peter MD Dear Dr Morocho Patient had an EGD with you sometime now last year. She was in [place] for holidays around the time of May 2022 and had a chest pain for which she was evaluated. A CT scan done at that time showed thickening of the esophagus and a hiatal hernia. They have recommended an EGD but since she just had an EGD I wanted to know from you if we need to scope her again. I think there were some biopsies taken but I wanted to confirm with you what you would opine on this Below in quotes is an excerpt from the CT scan, the report of which is available in care everywhere from [facility]. There is a hiatal hernia with some thickening of the distal esophagus. Clinical correlation is recommended. Adrenal glands normal. Thoracic spine demonstrates degenerative change. Thank you for your help in this matter Regards, Mamie Peter MD documented in this encounter [facility] 07-25-2022 Note HNO ID: [id number] Author: Mamie Peter MD Service: ? Author Type: Physician Type: Progress Notes Filed: 07/25/2022 5:35 PM Note Text: Reason for Visit Patient presents with: ED Follow-up Lisette Enamorado is a 82 year old female who presents here today for Above Complaints.. Health Maintenance INFLUENZA(1) ADVANCE DIRECTIVE DISCUSSION DEPRESSION ASSESSMENT HPI Had hit her head hard a few weeks ago when a large doberman that she was dog sitting, pulled the leash and she came crashing on the linoleum in the kitchen. Did not go to the Er. Denies having headache after that. No other issues noted after the fall She has numbness and tingling in the RUE when she bends the neck over and there is known radiculopathy for which she is getting some physical therapy after being seen by Dr. Alford In May the patient was in [facility], she had chest pain and was being checked out, at that time and she had a chest xr and was found to have esophageal thickening and that she needed to follow up with us. Pulmonary nodule- never a smoker and never worked in coal mines or asbestosis. Does not drink , but age, gender do increase her risk No problem-specific Assessment AND Plan notes found for this encounter. PAST MEDICAL HISTORY Diagnosis Date Coronary artery disease Diarrhea Generalized anxiety disorder Generalized osteoarthrosis, unspecified site lumbar and c-spine Hematochezia 03/31/2021 Incomplete bladder emptying 05/11/2005 Irritable bowel syndrome Pure hypercholesterolemia Thyroid disease Unspecified essential hypertension PAST SURGICAL HISTORY Procedure Laterality Date ADENOIDECTOMY PRIMARY Adenoidectomy ANTERIOR COLPORRAPHY RPR CYSTOCELE W/CYSTO Cystocele repair APPENDECTOMY >71 APPENDECTOMY HX COLONOSCOPY 08/08/2021 repeat in 5 years COLONOSCOPY FLX DX W/COLLJ SPEC WHEN PFRMD 08/2003 Colonoscopy COLONOSCOPY FLX DX W/COLLJ SPEC WHEN PFRMD 06/16/2008 Colonoscopy-repeat in -2018 COLONOSCOPY FLX DX W/COLLJ SPEC WHEN PFRMD 03/19/2014 Colonoscopy COLONOSCOPY FLX DX W/COLLJ SPEC WHEN PFRMD 08/11/2019 Colonoscopy EGD W/O RUST SPEC VARICIES INJ 08/08/2021 ESOPHAGOGASTRODUODENOSCOPY TRANSORAL DIAGNOSTIC 08/09/2015 EGD ESOPHAGOGASTRODUODENOSCOPY TRANSORAL DIAGNOSTIC 08/11/2019 EGD LEFT HEART CATH,PERCUTANEOUS 09/26/2012 Cardiac cath, L heart [facility] - chest pain STENT PLACEMENT 03/22, 09/21 medicated cardiac stent TONSILLECTOMY HX TONSILLECTOMY PRIMARY/SECONDARY Tonsillectomy FAMILY HISTORY Problem Relation Age of Onset Heart Mother CABG x3 Hypertension Mother Breast Cancer Mother Heart Father other (lung problems) Father Social History Tobacco Use Smoking status: Never Smokeless tobacco: Never Vaping Use Vaping Use: Never used Substance Use Topics Alcohol use: Yes Comment: rare glass of wine Drug use: No Past medical history, appointments, medications, allergies reviewed. Pertinent Lab/Diagnostic Studies are reviewed and discussed today Current Outpatient Medications: levothyroxine (SYNTHROID) 75 mcg tablet amLODIPine (NORVASC) 5 mg tablet metoprolol tartrate, short acting, (LOPRESSOR) 50 mg tablet betamethasone dipropionate, augmented (DIPROLENE) 0.05 % cream cyclobenzaprine (FLEXERIL) 10 mg tablet esomeprazole (NEXIUM) 40 mg capsule ticagrelor (BRILINTA) 90 mg tablet ezetimibe (ZETIA) 10 mg tablet cholecalciferol, vitamin D3, 4,000 unit cap colestipol (COLESTID) 1 gram tablet Aspirin 81 mg Tab Review of Systems CONSTITUTIONAL: No fevers, chills night sweats, unintended weight loss CARDIOVASCULAR: No chest pain, dyspnea, palpitations, orthopnea, PND, ankle edema. PULM: No dyspnea, unexplained cough. GI: No dysphagia/odynophagia, problematic reflux, constipation, diarrhea, changes in stool habits, hematochezia, melena. : No new urinary complaints, including dysuria, gross hematuria or pyuria. NEURO: No new balance problems, peripheral weakness/paresthesias or numbness of concern. Physical Exam BP 122/62 (BP Site: Left Arm, BP Position: Sitting, BP Cuff Size: Large Adult) Pulse 89 Temp 36.8 ?C (98.2 ?F) Resp 12 Ht 157.5 cm (5' 2 ) Wt 66.7 kg (147 lb) SpO2 99% BMI 26.89 kg/m? General appearance: Well appearing, alert, in no acute distress, well nourished. Skin: Skin color, texture, turgor normal, no suspicious rashes or lesions Head: Normocephalic, no masses, lesions, tenderness or abnormalities Eyes: Anicteric sclera. Pupils are equally round and reactive to light. Extraocular movements are intact. Lungs: Lungs clear to auscultation. No wheezing, rhonchi, rales Heart: RRR without murmur, gallop, or rubs. Extremities: No deformities, edema, skin discoloration, clubbing or cyanosis. Good capillary refill. ASSESSMENT/PLAN: 1. Hiatal hernia - ICD9: 553.3, ICD10: K44.9 (primary diagnosis) I wrote to Dr. Morocho as she recently had EGD just in the last 12 month (more content not included)... [facility] 07-10-2022 Note HNO ID: [id number] Author: Clarence Zee MD Service: ? Author Type: Physician Type: Progress Notes Filed: 08/01/2022 12:59 PM Note Text: Clarence Zee MD Department of Orthopaedics Orthopaedics [address] [facility] [address] Dept: [phone] Dept July 10, 2022 CHIEF COMPLAINT: New of the Right Wrist and Referred by Jillian Coulter (Last seen 08/22/12 Right CTS and cervical radiculopathy/) HPI Patient states in March she started having numbness in her right arm. Patient states she does not have carpal tunnel. Patient states she when puts her head down the numbness goes away. Patient states she has recently started exercises and feels it is better. Patient thinks she may a pinched nerve. Taking no med's for the pain. EMG done on 03/31/22. X-rays done on 03/17/22 of her shoulder and cervical. ASSESSMENT: M48.02 Cervical stenosis of spinal canal (primary encounter diagnosis) G56.01 Carpal tunnel syndrome of right wrist PLAN: Mild carpal tunnel, symptoms more consistent with radicular pattern from the cervical spine, clearly evident on her plain films. Recommendation is for anti-inflammatories as well as some physical therapy for the cervical spine. FOLLOW UP INSTRUCTIONS: As needed Ms. Lisette Enamorado was advised as to contrast therapies and/or to take analgesics/anti-inflammatories as needed and all contraindications were reviewed. OBJECTIVE: Ms. Lisette Enamorado is a pleasant 82 year old in no apparent distress. Gen:There were no vitals taken for this visit. nl development, non obese, no deformities ENT: Normocephalic, normal hearing, moist mucosa CV: Pulses:Radial= 2+ and symmetric, capillary refill < 2 secs, no peripheral edema/varicosities Skin: no rash, bruising or lesions. Good turgor. Psych: cooperative and appropriate, alert and oriented x 3, good mood and affect. Musculoskeletal: Mild stiffness with cervical spine motion. Nontender. Positive Spurling's to the right. Mildly positive Tinel's at the wrist and median nerve compression test at the wrist. Sensation intact throughout all digits. IMAGING: Electrodiagnostic examination of the right upper limb reveals changes most consistent with the followin. Right median neuropathy at or distal to the wrist (consistent with a clinical diagnosis of carpal tunnel syndrome), mild in degree electrically. 2. No definite EMG evidence of a right cervical (including C5-C8) motor radiculopathy, although an intraspinal canal lesion affecting only sensory nerve root fibers cannot be excluded based on this study. IMPRESSION: Cervical spondylosis. Hygiene Teacher: [facility] Transcribe Date/Time: Mar 19 2022 7:41P Dictated by : CARLOS LIU MD This examination was interpreted and the report reviewed and electronically signed by: CARLOS LIU MD on Mar 19 2022 7:44PM EST Results-Findings * * *Final Report* * * DATE OF EXAM: Mar 17 2022 12:36PM WOX [id number] - XR CERVICAL 2V AP/LAT / PROCEDURE REASON: multiple diagnoses * * * * Physician Interpretation * * * * Cervical spine History: Numbness and tingling of right arm Numbness and tingling of right arm Acute pain of right shoulder Findings: AP, lateral, and swimmers views were performed. Moderate narrowing C5-6 disc space. Other disc spaces maintained. Alignment anatomic. Lower cervical uncovertebral joint space narrowing. Facet hypertrophic degenerative changes. IMPRESSION: Unremarkable exam Hygiene Teacher: [facility] Transcribe Date/Time: Mar 19 2022 7:45P Dictated by : CARLOS LIU MD This examination was interpreted and the report reviewed and electronically signed by: CARLOS LIU MD on Mar 19 2022 7:45PM EST Results-Findings * * *Final Report* * * DATE OF EXAM: Mar 17 2022 12:36PM WOX [id number] - XR SHOULDER 2V AP/TRUE AP RT / PROCEDURE REASON: multiple diagnoses * * * * Physician Interpretation * * * * Right shoulder HISTORY: shoulder pain FINDINGS: 2 views were performed. No evidence of fracture or dislocation. No evidence of subacromial spur or narrowing of the acromial-humeral interval. No narrowing of the glenohumeral joint space is evident. Supporting Subjective Information Below: Past Medical History: PAST MEDICAL HISTORY Diagnosis Date Coronary artery disease Diarrhea Generalized anxiety disorder Generalized osteoarthrosis, unspecified site lumbar and c-spine Hematochezia 03/31/2021 Incomplete bladder emptying 05/11/2005 Irritable bowel syndrome Pure hypercholesterolemia Thyroid disease Unspecified essential hypertension Past Surgical History: PAST SURGICAL HISTORY Procedure Laterality Date ADENOIDECTOMY PRIMARY Adenoidectomy ANTERIOR COLPORRAPHY RPR CYSTOCELE W/CYSTO Cystocele repair APPENDECTOMY >71 APPENDECTOMY HX COLONOSCOPY 08/08/2021 repeat in 5 years COLONOSCOPY FLX DX W/COLLJ SPEC WHEN PFRMD 08/2003 Colono (more content not included)... [facility] 07-10-2022 History of Present illness Narrative Clarence Zee MD Department of Orthopaedics Orthopaedics [address] [facility] [address] Dept: [phone] Dept July 10, 2022 CHIEF COMPLAINT: New of the Right Wrist and Referred by Jillian Coulter (Last seen 08/22/12 Right CTS and cervical radiculopathy/) HPI Patient states in March she started having numbness in her right arm. Patient states she does not have carpal tunnel. Patient states she when puts her head down the numbness goes away. Patient states she has recently started exercises and feels it is better. Patient thinks she may a pinched nerve. Taking no med's for the pain. EMG done on 03/31/22. X-rays done on 03/17/22 of her shoulder and cervical. ASSESSMENT: M48.02 Cervical stenosis of spinal canal (primary encounter diagnosis) G56.01 Carpal tunnel syndrome of right wrist PLAN: Mild carpal tunnel, symptoms more consistent with radicular pattern from the cervical spine, clearly evident on her plain films. Recommendation is for anti-inflammatories as well as some physical therapy for the cervical spine. FOLLOW UP INSTRUCTIONS: As needed Ms. Lisette Enamorado was advised as to contrast therapies and/or to take analgesics/anti-inflammatories as needed and all contraindications were reviewed. OBJECTIVE: Ms. Lisette Enamorado is a pleasant 82 year old in no apparent distress. Gen:There were no vitals taken for this visit. nl development, non obese, no deformities ENT: Normocephalic, normal hearing, moist mucosa CV: Pulses:Radial= 2+ and symmetric, capillary refill < 2 secs, no peripheral edema/varicosities Skin: no rash, bruising or lesions. Good turgor. Psych: cooperative and appropriate, alert and oriented x 3, good mood and affect. Musculoskeletal: Mild stiffness with cervical spine motion. Nontender. Positive Spurling's to the right. Mildly positive Tinel's at the wrist and median nerve compression test at the wrist. Sensation intact throughout all digits. IMAGING: Electrodiagnostic examination of the right upper limb reveals changes most consistent with the followin. Right median neuropathy at or distal to the wrist (consistent with a clinical diagnosis of carpal tunnel syndrome), mild in degree electrically. 2. No definite EMG evidence of a right cervical (including C5-C8) motor radiculopathy, although an intraspinal canal lesion affecting only sensory nerve root fibers cannot be excluded based on this study. IMPRESSION: Cervical spondylosis. Hygiene Teacher: SUJATHA Transcribe Date/Time: Mar 19 2022 7:41P Dictated by : CARLOS LIU MD This examination was interpreted and the report reviewed and electronically signed by: CARLOS LIU MD on Mar 19 2022 7:44PM EST Results-Findings * * *Final Report* * * DATE OF EXAM: Mar 17 2022 12:36PM [id number] - XR CERVICAL 2V AP/LAT / PROCEDURE REASON: multiple diagnoses * * * * Physician Interpretation * * * * Cervical spine History: Numbness and tingling of right arm Numbness and tingling of right arm Acute pain of right shoulder Findings: AP, lateral, and swimmers views were performed. Moderate narrowing C5-6 disc space. Other disc spaces maintained. Alignment anatomic. Lower cervical uncovertebral joint space narrowing. Facet hypertrophic degenerative changes. IMPRESSION: Unremarkable exam Hygiene Teacher: [facility] Transcribe Date/Time: Mar 19 2022 7:45P Dictated by : CARLOS LIU MD This examination was interpreted and the report reviewed and electronically signed by: CARLOS LIU MD on Mar 19 2022 7:45PM EST Results-Findings * * *Final Report* * * DATE OF EXAM: Mar 17 2022 12:36PM [id number] - XR SHOULDER 2V AP/TRUE AP RT / PROCEDURE REASON: multiple diagnoses * * * * Physician Interpretation * * * * Right shoulder HISTORY: shoulder pain FINDINGS: 2 views were performed. No evidence of fracture or dislocation. No evidence of subacromial spur or narrowing of the acromial-humeral interval. No narrowing of the glenohumeral joint space is evident. Supporting Subjective Information Below: Past Medical History: PAST MEDICAL HISTORY Diagnosis Date Coronary artery disease Diarrhea Generalized anxiety disorder Generalized osteoarthrosis, unspecified site lumbar and c-spine Hematochezia 03/31/2021 Incomplete bladder emptying 05/11/2005 Irritable bowel syndrome Pure hypercholesterolemia Thyroid disease Unspecified essential hypertension Past Surgical History: PAST SURGICAL HISTORY Procedure Laterality Date ADENOIDECTOMY PRIMARY <AGE 11 Adenoidectomy ANTERIOR COLPORRAPHY RPR CYSTOCELE W/CYSTO Cystocele repair APPENDECTOMY >71 APPENDECTOMY HX COLONOSCOPY 08/08/2021 repeat in 5 years COLONOSCOPY FLX DX W/COLLJ SPEC WHEN PFRMD 08/2003 Colonoscopy COLONOSCOPY FLX DX W/COLLJ SPEC WHEN PFRMD 06/16/2008 Colonoscopy-repeat in -2018 COLONOSCOPY FLX DX W/COLLJ SPEC WHEN PFRMD 03/19/2014 Colonoscopy COLONOSCOPY FLX DX W/COLLJ SPEC WHEN PFRMD 08/11/2019 Colonoscopy EGD W/O [facility] SPEC VARICIES INJ 08/08/2021 ESOPHAGOGASTRODUODENOSCOPY TRANSORAL DIAGNOSTIC 08/09/2015 EGD ESOPHAGOGASTRODUODENOSCOPY TRANSORAL DIAGNOSTIC 08/11/2019 EGD LEFT HEART CATH,PERCUTANEOUS 09/26/2012 Cardiac cath, L heart [facility] - chest pain STENT PLACEMENT 03/22, 09/21 medicated cardiac stent TONSILLECTOMY HX TONSILLECTOMY PRIMARY/SECONDARY <AGE 11 Tonsillectomy Family History: FAMILY HISTORY Problem Relation Age of Onset Heart Mother CABG x3 Hypertension Mother Breast Cancer Mother Heart Father other (lung problems) Father Social History: Social History Tobacco Use Smoking status: Never Smokeless tobacco: Never Vaping Use Vaping Use: Never used Substance Use Topics Alcohol use: Yes Comment: rare glass of wine Drug use: No Medications: Current Outpatient Medications Medication Sig levothyroxine (SYNTHROID) 75 mcg tablet Take 1 tablet by mouth daily before breakfast. amLODIPine (NORVASC) 5 mg tablet Take 1 tablet by mouth once daily. metoprolol tartrate, short acting, (LOPRESSOR) 50 mg tablet Take 1 tablet by mouth three times daily. betamethasone dipropionate, augmented (DIPROLENE) 0.05 % cream cyclobenzaprine (FLEXERIL) 10 mg tablet Take 0.5 tablets by mouth three times daily as needed for muscle spasm or pain. esomeprazole (NEXIUM) 40 mg capsule Take 1 capsule by mouth daily before breakfast. ticagrelor (BRILINTA) 90 mg tablet Take 1 tablet by mouth twice daily. ezetimibe (ZETIA) 10 mg tablet 10 mg. cholecalciferol, vitamin D3, 4,000 unit cap Take 1 Dose by mouth once daily. colestipol (COLESTID) 1 gram tablet Take 1 tablet by mouth twice daily. Dr. Roach Aspirin 81 mg Tab Take 1 tablet by mouth once daily. Take with food. No current facility-administered medications for this visit. Allergies: Ditropan [Oxybutynin Chloride] and Lisinopril ROS: General (negative for fatigue, malaise, weight loss/gain) HEENT (negative for headache, earache, recent vision changes, sinus pain, sore throat) Respiratory (no recent shortness of breath, hemoptysis) CV (negative for chest tightness, palpitations) Musculoskeletal (see HPI) Psych (no depression, anxiety) REFERRING PHYSICIAN: Consultation requested by Jillian Coulter for an opinion regarding right arm numbness. My final recommendations will be communicated back to the requesting physician by way of shared Medical record or letter to requesting physician via US mail. Jillian Coulter [address] [facility] [id number] Mamie Peter MD [address] [facility] [id number] Clarence Zee MD documented in this encounter [facility] 06-12-2022 Miscellaneous Notes The following approved medication requests have been transmitted electronically. Requested Prescriptions Signed Prescriptions Disp Refills metoprolol tartrate, short acting, (LOPRESSOR) 50 mg tablet 270 tablet 3 Sig: Take 1 tablet by mouth three times daily. Authorizing Provider: JILLIAN COULTER levothyroxine (SYNTHROID) 75 mcg tablet 14 tablet 0 Sig: Take 1 tablet by mouth daily before breakfast. Authorizing Provider: RIGO MATTHEWS amLODIPine (NORVASC) 5 mg tablet 14 tablet 0 Sig: Take 1 tablet by mouth once daily. Authorizing Provider: RIGO MATTHEWS Refused Prescriptions Disp Refills colestipol (COLESTID) 1 gram tablet 0 Sig: Take 1 tablet by mouth twice daily. Dr. Roach Refused By: JILLIAN COULTER Reason for Refusal: A Refill not appropriate ezetimibe (ZETIA) 10 mg tablet Si tablet. Refused By: JILLIAN COULTER Reason for Refusal: A Refill not appropriate cholecalciferol, vitamin D3, 100 mcg (4,000 unit) cap 0 Sig: Take by mouth once daily. Refused By: JILLIAN COULTER Reason for Refusal: A Refill not appropriate ticagrelor (BRILINTA) 90 mg tablet 60 tablet 3 Sig: Take 1 tablet by mouth twice daily. Refused By: JILLIAN COULTER Reason for Refusal: A Refill not appropriate Rigo Matthews DO Pt & son called regarding medications & was notified of message. Pt thinks Dr Roach may have prescribed some of the meds listed, they will call his office. They are asking for a 2 wk supply of Levothyroxine & amlodipine sent to pharm near son's home, pt is there until 06/24/22. There seems to be some confusion on meds pt is taking, pt has appt with NO JOlder 06/28/22. Pt does not have any pills with her for the 2 meds prescribed. Meds pending review. Dana Bryson LPN Metoprolol is only prescription we have filled in the past year so only refill given. All the others were filled between 2-7 years ago. Thank you Jillian Coulter APRN.HAM Patient phones requesting refills as follows: Requested Prescriptions Pending Prescriptions Disp Refills colestipol (COLESTID) 1 gram tablet 0 Sig: Take 1 tablet by mouth twice daily. Dr. Roach ezetimibe (ZETIA) 10 mg tablet Si tablet. cholecalciferol, vitamin D3, 100 mcg (4,000 unit) cap 0 Sig: Take by mouth once daily. metoprolol tartrate, short acting, (LOPRESSOR) 50 mg tablet 270 tablet 3 Sig: Take 1 tablet by mouth three times daily. ticagrelor (BRILINTA) 90 mg tablet 60 tablet 3 Sig: Take 1 tablet by mouth twice daily. BRUNA-03/17/22 Labs-12/08/21 NOV-06/28/22 Please review and advise. Anna Lucero LPN documented in this encounter [facility] 05-31-2022 Note HNO ID: [id number] Author: Galilea Shoemaker PA-C Service: ? Author Type: Physician Manager Account Management Type: Progress Notes Filed: 05/31/2022 4:02 PM Note Text: Subjective HPI HPI Lisette Enamorado is a 81 year old female who presents today for CC of R ear/jaw pain- sharp twinges of pain that started today. I just don't feel right. Notes that that she feels like something has been trying to come on but never came on full fledge. BP 122/78 Pulse 67 Temp 37 ?C (98.6 ?F) (Tympanic) Resp 18 Wt 69.1 kg (152 lb 6.4 oz) SpO2 97% BMI 27.87 kg/m? ALLERGIES Allergen Reactions Ditropan [Oxybutyni* GI Upset Lisinopril Cough ACTIVE PROBLEM LIST Incomplete Bladder Emptying Essential Hypertension History of Ibs Generalized Anxiety Disorder Generalized Osteoarthrosis, Unspecified Site Retention of Urine, Unspecified Cervicalgia Diarrhea Diverticulosis of Colon (Without Mention of Hemorrhage) Bilateral Carotid Artery Stenosis Coronary Artery Disease Involving [facility] Coronary Artery of [facility] Heart Without Angina Pectoris Myalgia and Myositis, Unspecified Sleep Apnea Onychia and Paronychia of Toe Lumbago Bursitis of Left Shoulder Right Cervical Radiculopathy Right Carpal Tunnel Syndrome Hyperlipidemia Hypothyroidism Sensorineural Hearing Loss, Bilateral Otalgia Bilateral Impacted Cerumen Ckd (Chronic Kidney Disease) Stage 3, Gfr 30-59 Ml/Min ([facility]) Pvd (Peripheral Vascular Disease) ([facility]) Grade II Diastolic Dysfunction Heme Positive Stool Hypertensive Kidney Disease With Chronic Kidney Disease Stage Iii ([facility]) Family History Problem Relation Age of Onset Heart Mother CABG x3 Hypertension Mother Breast Cancer Mother Heart Father other (lung problems) Father Social History Tobacco Use Smoking status: Never Smokeless tobacco: Never Vaping Use Vaping Use: Never used Substance Use Topics Alcohol use: Yes Comment: rare glass of wine Drug use: No Review of Systems Constitutional: Negative for chills, fever and malaise/fatigue. HENT: Positive for ear pain. Negative for congestion, sinus pain and sore throat. Respiratory: Negative for cough, sputum production, shortness of breath and wheezing. Cardiovascular: Negative for chest pain. Neurological: Negative for headaches. Objective BP 122/78 Pulse 67 Temp 37 ?C (98.6 ?F) (Tympanic) Resp 18 Wt 69.1 kg (152 lb 6.4 oz) SpO2 97% BMI 27.87 kg/m? Physical Exam Constitutional: General: She is not in acute distress. Appearance: She is not toxic-appearing. HENT: Head: Normocephalic. Jaw: Tenderness (Most predominant at the angle of the mandible) present. Salivary Glands: Right salivary gland is not diffusely enlarged. Left salivary gland is not diffusely enlarged. Comments: Palpable muscle spasm noted R TMJ Right Ear: Tympanic membrane, ear canal and external ear normal. No drainage. No middle ear effusion. Tympanic membrane is not perforated, erythematous, retracted or bulging. Left Ear: Ear canal normal. No drainage. No middle ear effusion. Tympanic membrane is not perforated, erythematous, retracted or bulging. Nose: No rhinorrhea. Right Sinus: No maxillary sinus tenderness or frontal sinus tenderness. Left Sinus: No maxillary sinus tenderness or frontal sinus tenderness. Mouth/Throat: Pharynx: Uvula midline. No oropharyngeal exudate or posterior oropharyngeal erythema. Tonsils: No tonsillar abscesses. Eyes: General: Lids are normal. Conjunctiva/sclera: Conjunctivae normal. Cardiovascular: Rate and Rhythm: Normal rate and regular rhythm. Heart sounds: S1 normal and S2 normal. No friction rub. Pulmonary: Effort: Pulmonary effort is normal. Breath sounds: Normal breath sounds. No wheezing, rhonchi or rales. Lymphadenopathy: Head: Right side of head: No submental, submandibular, tonsillar, preauricular, posterior auricular or occipital adenopathy. Left side of head: No submental, submandibular, tonsillar, preauricular, posterior auricular or occipital adenopathy. Cervical: Right cervical: No superficial or posterior cervical adenopathy. Left cervical: No superficial or posterior cervical adenopathy. Neurological: Mental Status: She is alert and oriented to person, place, and time. Psychiatric: Behavior: Behavior is cooperative. ASSESSMENT/PLAN: 1. Referred otalgia of right ear - ICD9: 388.72, ICD10: H92.01 Unclear etiology. Reassurance provided regarding normal ear exam; Possibly secondary to TMJ arthalgia. Myofascial release technique performed with some subjective relief in sx. Stretching exercises advised and/or handouts given, application of heat/ice advised, pain control addressed. Pt is to seek further evaluation by PCP (or even possibly dentist) if problem persists, or if at any point the condition worsens. Reviewed red flags with patient and when to seek care sooner. The patient indicates understanding of these iss (more content not included)... [facility] 05-31-2022 Miscellaneous Notes Patient reports she is having right ear pain that started today. Comes and goes. Sharp pain when happens. Reports right jaw feels bruised, so doesn't know if she has a bad tooth or if it's her ear. No fever. Patient agreeable to EC for evaluation of ear pain. documented in this encounter [facility] 05-27-2022 Miscellaneous Notes Left message PCP will be out of the office will review when she returns. Ashley Jackson LPN I can review when back Regards, Mamie Peter MD Patient calls to report that she is out of state with daughter and was having some cardiac issues. Patient went to [facility] in [place] and had some testing done. Patient reports that one of the tests she had done was a CT scan and it showed thickening of the esophagus. Recommendation is for endoscopy. Patient requesting hospital to send records to provider. Fax number given. Patient asking for provider to review hospital records and advise once received. Patient not wanting hospital follow up at this time. Patient returning from [place] on Sunday and going out of town on . Clari Ford RN documented in this encounter [facility] 04-24-2022 Miscellaneous Notes Patient calling asking for results of her EMG. Went over results, notes from Jillian Coulter LAB SCIENTIST with understanding. Patient said she had seen Ortho Dr Evangelista at [facility] for her arm before. Patient said she wants to think about it, she does not want to have surgery done. Patient said she will call back. documented in this encounter [facility] 04-21-2022 History of Present illness Narrative POPULATION HEALTH NAVIGATION OUTREACH Action/ RP OUTREACH: Contacted patient to schedule IGOR Consult unable to leave voicemail. Pt identified by name and : YES, via [employer] Outreach Outcome/Action Unable to reach patient: Phone number not valid / voicemail full Did you use a PCP flex slot to schedule this appointment? No Reason for Outreach Care Gap or Scheduling/Wellness visits Payer: Payor: [employer] MEDICARE / Plan: [employer] MEDICARE PPO / Product Type: PPO / Care Gap Reviewed:: ORQ Reminder: Reminder note to check Health Maintenance for items below Health Maintenance items due: DEPRESSION ASSESSMENT Never done INFLUENZA(1) due on 02/09/2022 Message Sent to Practice: No Navigation Signature: Laura Cody April 21, 2022 2:53 PM documented in this encounter [facility] 04-06-2022 Miscellaneous Notes Patient has been identified by name and date of : Yes Pharmacy phones for refill(s): Requested Prescriptions Pending Prescriptions Disp Refills levothyroxine (SYNTHROID) 75 mcg tablet 90 tablet 3 Sig: Take 1 tablet by mouth daily before breakfast. Date of last office visit in primary care: 12/08/2021, no future appt scheduled Last 2 Encounter Wt Readings: Date: Wt: 03/17/2022 67.1 kg (148 lb) 12/08/2021 67.6 kg (149 lb) Previous labs/tests for medication: Thyroid: TSH Date Value 12/08/2021 2.240 mIU/L 06/01/2021 4.280 uU/mL Please advise. Thank you. Debra Willard LPN documented in this encounter [facility] 04-04-2022 Miscellaneous Notes Pt notified of results via [employer] (now [employer])hart. Leatha Thompson Ma Tried calling patient, line rang and rang, no VM. Try calling again. Patient is positive for carpal tunnel and cause of numbness and tingling. Please let her know this and have her scheduled for orthopedic consult Take care Jillian Coulter APRN.HAM documented in this encounter [facility] 03-31-2022 History of Present illness Narrative UNIVERSAL PROTOCOL / SAFETY CHECKLIST Procedure to be Performed: EMG Sign In: A Moment of CARE was completed. Personnel directly involved with the procedure wore the appropriate PPE (Personal Protective Equipment). Patient/Surrogate Stated/Verified: PATIENT VERIFIED(optional for EMERGENT procedures): Patient name, Date of , Relevant allergies, and The intended procedure Time Out Communication: Intended patient and procedure match the source documents. Correct side/site marked and visible. Sign Out: SIGN OUT (optional for EMERGENT procedures): Post-procedure follow-up management communicated and Plan of Care Visit completed when applicable. RODRI Dickerson.Gisella. Aung Castrejon DO documented in this encounter [facility] 03-23-2022 Miscellaneous Notes Spoke with patient. Given message from provider's office. Patient verbalizes understanding. [facility]. Dolly Chi RN Left message to return call Please let patient know her neck xray did show some narrowing of her spinal column in her neck which may be attributing to her numbness and tingling. I am putting in a consult for neurology for their evaluation and recommendations and she should continue with scheduled EMG. Thank you Jillian Coulter APRN.STEEL BUFFER documented in this encounter [facility] 03-17-2022 History of Present illness Narrative Emg CC: Patient presents with: Neck Pain: R sided neck pain radiating down the R arm, tingling and numbness x several weeks HPI Lisette Enamorado is an 81 year old female who presents today for right sided neck pain and numbness. Numbness and tingling from Right shoulder that is intermittent but sometimes so severe she has to shake her arm to make it stop. Has noticed it occurring more constant . Tingling occurs from right forearm into hand and fingers which is presciptated by a burning sensation. . Unsure if it is all fingers or specific ones. This comes and goes but is especially present at night. Nubmness is intermittent to entire RUE. Also has an intermittent ache that starts at forearm and extends up RUE. Pain and tenderness to a muscle she feels is tight from right shoulder extending up into right side of neck. Has tried stretching, exercises, and aspirin. Aspirin helps the pain some. Denies any recent or previous neck or shoulder injury, fever, swelling, recent infection, weakness, or decreased ROM Did have a right fractured elbow this past may that did not require surgery but does have pain from this still. Was in a sling for over a month as a result of this. REVIEW OF SYSTEMS General: no fevers, no chills, no night sweats, no recurrent infections, no change in appetite, no change in energy, and no significant changes in weight Respiratory: no cough, no wheezing, no shortness of breath, no hemoptysis Cardiovascular: no chest pain, no chest pressure, no palpitations, and no swelling Musculoskeletal: see hpi Neurologic: See HPI PAST MEDICAL HISTORY Diagnosis Date Coronary artery disease Diarrhea Generalized anxiety disorder Generalized osteoarthrosis, unspecified site lumbar and c-spine Hematochezia 03/31/2021 Incomplete bladder emptying 05/11/2005 Irritable bowel syndrome Pure hypercholesterolemia Thyroid disease Unspecified essential hypertension PAST SURGICAL HISTORY Procedure Laterality Date ADENOIDECTOMY PRIMARY <AGE 11 Adenoidectomy ANTERIOR COLPORRAPHY RPR CYSTOCELE W/CYSTO Cystocele repair APPENDECTOMY >71 APPENDECTOMY HX COLONOSCOPY 08/08/2021 repeat in 5 years COLONOSCOPY FLX DX W/COLLJ SPEC WHEN PFRMD 08/2003 Colonoscopy COLONOSCOPY FLX DX W/COLLJ SPEC WHEN PFRMD 06/16/2008 Colonoscopy-repeat in -2018 COLONOSCOPY FLX DX W/COLLJ SPEC WHEN PFRMD 03/19/2014 Colonoscopy COLONOSCOPY FLX DX W/COLLJ SPEC WHEN PFRMD 08/11/2019 [facility] 08/08/2021 ESOPHAGOGASTRODUODENOSCOPY TRANSORAL DIAGNOSTIC 08/09/2015 EGD ESOPHAGOGASTRODUODENOSCOPY TRANSORAL DIAGNOSTIC 08/11/2019 EGD LEFT HEART CATH,PERCUTANEOUS 09/26/2012 Cardiac cath, L heart [facility] - chest pain STENT PLACEMENT 03/22, 09/21 medicated cardiac stent TONSILLECTOMY HX TONSILLECTOMY PRIMARY/SECONDARY <AGE 11 Tonsillectomy ALLERGIES Ditropan [Oxybutynin Chloride] and Lisinopril MEDICATIONS esomeprazole (NEXIUM) 40 mg capsule Take 1 capsule by mouth daily before breakfast. amLODIPine (NORVASC) 5 mg tablet Take 1 tablet by mouth once daily. levothyroxine (SYNTHROID) 75 mcg tablet Take 1 tablet by mouth daily before breakfast. metoprolol tartrate, short acting, (LOPRESSOR) 50 mg tablet Take 1 tablet by mouth three times daily. ticagrelor (BRILINTA) 90 mg tablet Take 1 tablet by mouth twice daily. ezetimibe (ZETIA) 10 mg tablet 10 mg. cholecalciferol, vitamin D3, 4,000 unit cap Take 1 Dose by mouth once daily. colestipol (COLESTID) 1 gram tablet Take 1 tablet by mouth twice daily. Dr. Roach Aspirin 81 mg Tab Take 1 tablet by mouth once daily. Take with food. FAMILY HISTORY Problem Relation Age of Onset Heart Mother CABG x3 Hypertension Mother Breast Cancer Mother Heart Father other (lung problems) Father Social History Tobacco Use Smoking status: Never Smokeless tobacco: Never Vaping Use Vaping Use: Never used Substance Use Topics Alcohol use: Yes Comment: rare glass of wine Drug use: No PHYSICAL EXAM BP 128/62 Pulse 64 Resp 16 Wt 67.1 kg (148 lb) BMI 27.07 kg/m General Appearance: well appearing, in no acute distress, alert Skin: Skin color, texture, turgor normal for age; Eyes: conjunctiva pink and moist, no icterus, sclera white, non-injected Lungs: Lungs clear to auscultation. No wheezing, rhonchi, rales. Heart: RRR without murmur, gallop, or rubs. No ectopy BUE Extremities: No deformities, edema, skin discoloration, clubbing or cyanosis. Good capillary refill. Neck: Inspection: normal Palpation: tender and tight muscle noted to right side of neck ROM: normal Musculoskeletal: Bilateral shoulder: normal to inspection. no tenderness with palpation of deltoid, biceps tendon, trapezius, clavicle, AC (Acromioclavicular) joint, and SC (Sternoclavicular) joint. ROM: normal. Special tests: Drop arm: -, Empty Can: -, Infraspinatus: -, Carrington:-, Neer - Upper extremities: reflexes: +2 to bilateral U/L extremities.. Muscle strength: 5/5 upper, bilaterally Negative tinel and phalen Health maintenance reviewed with patient: DEPRESSION ASSESSMENT Never done INFLUENZA(1) due on 02/09/2022 COVID-19 VACCINE(2 - Booster for Marybel series) due on 12/08/2022 LDL CHOLESTEROL due on 12/08/2022 DIABETES SCREEN due on 12/08/2024 COLORECTAL CANCER SCREENING due on 08/08/2026 DTAP,TDAP,TD(3 - Tdap) due on 08/25/2027 BONE DENSITY Completed ADVANCE DIRECTIVE DISCUSSION Completed SHINGRIX VACCINE Completed PNEUMOCOCCAL: 65+ Completed DATA REVIEWED: No new labs ASSESSMENT/PLAN: 1. Numbness and tingling of right arm - ICD9: 782.0, ICD10: R20.0, R20.2 (primary diagnosis) - XR CERV GENERAL 2V AP/LAT - XR SHOULDER [id number] AP/TRUE AP RIGHT - EMG(NEURO/NI) 2. Acute pain of right shoulder - ICD9: 719.41, ICD10: M25.511 Feel this is a result of muscle strain/inflammation - will try steroids taper - XR CERV GENERAL 2V AP/LAT - XR SHOULDER [id number] AP/TRUE AP RIGHT Prescription instructions reviewed with patient as applicable. Potential red flag symptoms discussed with the patient. Reviewed appropriate action plan to take if red flag symptoms occur. Patient agreeable to treatment plan. Jillian Coulter APRN.CNP documented in this encounter [facility] 02-22-2022 Miscellaneous Notes Last Office Visit: 12/08/2021 Future Office Visit: None Last Medication Refill: esomeprazole 03/28/2021 90 cap 1 Refill Date of Last Labs: 12/08/2021 documented in this encounter [facility] 12-16-2021 Miscellaneous Notes Noted. Jillian Coulter APRN.CNP Spoke with patient, states she received to records of lab reports, one was from us through [facility] but the other set of labs she was not sure? Advised patient that it was either from [facility] or Dr Evangelista? Patient saw on Mychart a lot of abnormal flags and was concerned. recently and his labs was almost perfect even up to his . Patient was relieved after talking with me and if she comes across the other labs and has questions she will return call or that facility. Please let patient know that lab work was ordered and completed after her visit with me on 12/08. I sent a [employer] message regarding results and aplogize if for some reason she did not see them. Over all lab work is acceptable. Kidney function is abnormal but actually improved and the best we have seen in the last couple years. Also, cholesterol levels were slightly elevated. Diet should be rich in fruits, vegetables, lean meats and healthy fats/oils. Avoid processed foods, trans fats, vegetable oils and simple sugars. Watch portion sizes. Aerobic exercise for at least 20 minutes, 3-5 days a week. She saw Dr. Evangelista for her fractured arm who is not part of [facility] therefore not in her mychart. I am concerned if she is having memory issues. Is she still taking pain medication? Thank you Jillian Coulter APRN.CNP Patient states that she is seeing lab results that were done. Unclear on where these lab results were done but patient is concerned. Patient concerned because the numbers seem off. Patient is confused where all her labs were done at and where her appointments were at regarding her arm. documented in this encounter [facility] 12-08-2021 Instructions Jillian Coulter APRN.CNP - 12/08/2021 8:56 AM EDT Eat a BRAT type diet: Bananas, rice, applesauce, and toast. Try to eat regularly with small meals throughout the day. documented in this encounter [facility] 12-08-2021 History of Present illness Narrative CC: Patient presents with: meidicaiton follow up Diarrhea: X 1 week HPI Lisette Enamorado is a 81 year old female who presents today for medication review, but also has diarrhea present for 1 week and recent [facility] ER visit on 11/29/21 Patient fell tripping over a tree branch in the road causing an injury to her right arm Discharge: Home with consult to local orthopedic surgeon, Nishant Evangelista., has seen him. Will be medically managed and going to start physical therapy in a few weeks. Pain being managed by orthopedic. Right elbow xray showing acute impaction fracture of the right radial head. HTN/HLD/CAD: Ms. Enamorado indicates that she is feeling well and denies any symptoms referable to elevated blood pressure. Specifically denies headache, chest pain, palpitations, dyspnea and peripheral edema. Patient denies any side effects of her medication(s) and is compliant with their regimen. She does not check BP's generally. Lisette denies regular aerobic exercise. She watches her diet for sodium, low fat and low cholesterol most of the time. Last 3 Encounter BP Readings: Date: BP: 12/08/2021 122/66 08/16/2021 118/72 08/08/2021 109/51 Sees cardiology yearly at [place]. Is due for annual appointment. Has had diarrhea for over a week, Sates she has chronic pain to LLQ ,IBS with diarrhea, and has had colonoscopies to diagnose the pain which have all been negative. Most recent colonoscopy was 4 months ago and outside of small tubular adenoma which was removed, it was normal. No diverticulosis noted in report. Diarrhea is only in the morning and is described as liquid stool. Once she has the diarrhea, she doesn't feel the need to go for the rest of the day. Has imodium to use if she hs to go somewhere in the morning, but has not really needed it. Denies fever chills, nausea, vomiting, or change in appetite. GERD: Controlled with esomeprazole. Denies heart burn, bloating, or difficulty swallowing. 2 months ago, and is very stressed trying to deal with all of that and then the recent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 alcohol or drug abuse patient.[facility] HospitalIn the event this information is protected by the Federal Confidentiality of Alcohol and Drug Abuse Patient Records regulations: The Federal rules restrict any use of the information to criminally investigate or prosecute any alcohol or drug abuse patient.[facility] HospitalIn the event this information is protected by the Federal Confidentiality of Alcohol and Drug Abuse Patient Records regulations: The Federal rules restrict any use of the information to criminally investigate or prosecute any alcohol or drug abuse patient.[facility] HospitalIn the event this information is protected by the Federal Confidentiality of Alcohol and Drug Abuse Patient Records regulations: The Federal rules restrict any use of the information to criminally investigate or prosecute any alcohol or drug abuse patient.[facility] HospitalIn the event this information is protected by the Federal Confidentiality of Alcohol and Drug Abuse Patient Records regulations: The Federal rules restrict any use of the information to criminally investigate or prosecute any alcohol or drug abuse patient.[facility] HospitalIn the event this information is protected by the Federal Confidentiality of Alcohol and Drug Abuse Patient Records regulations: The Federal rules restrict any use of the information to criminally investigate or prosecute any alcohol or drug abuse patient.[facility] HospitalIn the event this information is protected by the Federal Confidentiality of Alcohol and Drug Abuse Patient Records regulations: The Federal rules restrict any use of the information to criminally investigate or prosecute any alcohol or drug abuse patient.[facility] HospitalIn the event this information is protected by the Federal Confidentiality of Alcohol and Drug Abuse Patient Records regulations: The Federal rules restrict any use of the information to criminally investigate or prosecute any alcohol or drug abuse patient.[facility] HospitalIn the event this information is protected by the Federal Confidentiality of Alcohol and Drug Abuse Patient Records regulations: The Federal rules restrict any use of the information to criminally investigate or prosecute any alcohol or drug abuse patient.[facility] HospitalIn the event this information is protected by the Federal Confidentiality of Alcohol and Drug Abuse Patient Records regulations: The Federal rules restrict any use of the information to criminally investigate or prosecute any alcohol or drug abuse patient.[facility] HospitalIn the event this information is protected by the Federal Confidentiality of Alcohol and Drug Abuse Patient Records regulations: The Federal rules restrict any use of the information to criminally investigate or prosecute any alcohol or drug abuse patient.[facility] HospitalIn the event this information is protected by the Federal Confidentiality of Alcohol and Drug Abuse Patient Records regulations: The Federal rules restrict any use of the information to criminally investigate or prosecute any alcohol or drug abuse patient.[facility] HospitalIn the event this information is protected by the Federal Confidentiality of Alcohol and Drug Abuse Patient Records regulations: The Federal rules restrict any use of the information to criminally investigate or prosecute any alcohol or drug abuse patient.[facility] HospitalIn the event this information is protected by the Federal Confidentiality of Alcohol and Drug Abuse Patient Records regulations: The Federal rules restrict any use of the information to criminally investigate or prosecute any alcohol or drug abuse patient.[facility] HospitalIn the event this information is protected by the Federal Confidentiality of Alcohol and Drug Abuse Patient Records regulations: The Federal rules restrict any use of the information to criminally investigate or prosecute any alcohol or drug abuse patient.[facility] HospitalIn the event this information is protected by the Federal Confidentiality of Alcohol and Drug Abuse Patient Records regulations: The Federal rules restrict any use of the information to criminally investigate or prosecute any alcohol or drug abuse patient.[facility] HospitalIn the event this information is protected by the Federal Confidentiality of Alcohol and Drug Abuse Patient Records regulations: The Federal rules restrict any use of the information to criminally investigate or prosecute any alcohol or drug abuse patient.[facility] HospitalIn the event this information is protected by the Federal Confidentiality of Alcohol and Drug Abuse Patient Records regulations: The Federal rules restrict any use of the information to criminally investigate or prosecute any alcohol or drug abuse patient.[facility] HospitalIn the event this information is protected by the Federal Confidentiality of Alcohol and Drug Abuse Patient Records regulations: The Federal rules restrict any use of the information to criminally investigate or prosecute any alcohol or drug abuse patient.[facility] HospitalIn the event this information is protected by the Federal Confidentiality of Alcohol and Drug Abuse Patient Records regulations: The Federal rules restrict any use of the information to criminally investigate or prosecute any alcohol or drug abuse patient.[facility] HospitalIn the event this information is protected by the Federal Confidentiality of Alcohol and Drug Abuse Patient Records regulations: The Federal rules restrict any use of the information to criminally investigate or prosecute any alcohol or drug abuse patient.[facility] HospitalIn the event this information is protected by the Federal Confidentiality of Alcohol and Drug Abuse Patient Records regulations: The Federal rules restrict any use of the information to criminally investigate or prosecute any alcohol or drug abuse patient.[facility] HospitalIn the event this information is protected by the Federal Confidentiality of Alcohol and Drug Abuse Patient Records regulations: The Federal rules restrict any use of the information to criminally investigate or prosecute any alcohol or drug abuse patient.[facility] HospitalIn the event this information is protected by the Federal Confidentiality of Alcohol and Drug Abuse Patient Records regulations: The Federal rules restrict any use of the information to criminally investigate or prosecute any alcohol or drug abuse patient.[facility] HospitalIn the event this information is protected by the Federal Confidentiality of Alcohol and Drug Abuse Patient Records regulations: The Federal rules restrict any use of the information to criminally investigate or prosecute any alcohol or drug abuse patient.[facility] HospitalIn the event this information is protected by the Federal Confidentiality of Alcohol and Drug Abuse Patient Records regulations: The Federal rules restrict any use of the information to criminally investigate or prosecute any alcohol or drug abuse patient.[facility] HospitalIn the event this information is protected by the Federal Confidentiality of Alcohol and Drug Abuse Patient Records regulations: The Federal rules restrict any use of the information to criminally investigate or prosecute any alcohol or drug abuse patient.[facility] Reason for Visit (unrecogniz ed section and content) Specialty Diagnoses / Procedures Referred By Contac t Referred To Contact [facility] Diagnoses Incontinence of feces, unspecified fecal incontinence type Procedures CONSULT TO PHYSICAL THERAPY PHYSICAL THERAPY EVALUATION HIGH COMPLEX 45 MINS Chanell Givens MD [address] [place] [address] [facility] [place] [address] [place] [address] Referral ID Status Reason Start Date Expiration Date Visits Requested Visits Authorized [id number] Authorized Auto-Generat ed Referral 08/09/2022 06/10/2023 20 20 Reason Onset Date Comments Refill Request 10/26/2021 Reason Comments Handicap placard form Reason Comments Orders placard Reason Comments meidicaiton follow up Diarrhea X 1 week Reason Comments Results Reason Onset Date Comments Refill Request 02/22/2022 Reason Comments Neck Pain R sided neck pain ra diating down the R arm, tingling and numbness x several weeks Reason Comments Results Reason Onset Date Comments EMG 03/31/2022 Specialty Diagnoses / Procedures Referred By Contac t Referred To Contact [facility] Diagnoses Numbness and tingling of right arm Procedures EMG(NEURO/NI) NERVE CONDUCTION STUDIES 9-10 STUDIES Jillian Coulter APRN.STEEL BUFFER [address] [place] [address] [facility] [place] [address] [place] [address] Referral ID Status Reason Start Date Expiration Date V isits Requested Visits Authorized [id number] Closed Auto-Generate d Referral 03/17/2022 03/17/2023 1 1 Reason Onset Date Comments Refill Request 04/06/2022 Reason Comments Patient Update Reason Comments Ear Pain Reason Onset Date Comments Refill Request 06/08/2022 Reason Comments New Referred by Jillian Coulter Last seen 08/22/12 Right CTS and cervical radiculopathy Specialty Diagnoses / Procedures Referred By Contac t Referred To Contact Orthopedics Diagnoses Carpal tunnel syndrome of right wrist Procedures CONSULT TO ORTHOPAEDICS OFFICE/OUTPATIENT [facility] 60-74 MINUTES Jillian Coulter APRN.STEEL BUFFER [address] [place] [address] Referral ID Status Reason Start Date Expiration Date V isits Requested Visits Authorized [id number] Closed PCP Requested Referral 04/03/2022 04/03/2023 1 1 Reason Comments Recheck Follow up, pressure in the ears Reason Comments Back Pain Reason Comments Rectal Problem Reason Comments ED Follow-up Reason Comments Refill Request Reason Comments Patient Question Reason Comments Rectal Colitis Specialty Diagnoses / Procedures Referred By Contac t Referred To Contact General Surgery Diagnoses Colitis Rectal bleeding Procedures CONSULT TO GENERAL SURGERY OFFICE/OUTPATIENT [facility] 60-74 MINUTES Elizabeth Mace MD [address] [place] [address] Referral ID Status Reason Start Date Expiration Date Visits Requested Visits Authorized [id number] Pending Review PCP Requested Referral 01/18/2023 01/18/2024 1 1 Reason Onset Date Comments Refill Request 03/03/2023 Reason Comments PT Eval Reason Comments Radiology US Specialty Diagnoses / Procedures Referred By Contac t Referred To Contact US IMAGING Diagnoses Kidney cyst, acquired Procedures US KIDNEY/BLADDER US RETROPERITONEAL REAL TIME W/IMAGE COMPLETE Elizabeth Mace MD [address] [place] [address] [place] [address] Referral ID Status Reason Start Date Expiration Date V isits Requested Visits Authorized [id number] Closed Auto-Generate d Referral 01/18/2023 02/17/2024 1 [address] Specialty Diagnoses / Procedures Referred By Contac t Referred To Contact CT IMAGING Diagnoses Pulmonary nodule Procedures CT CHEST WO IVCON DIAGNOSTIC COMPUTED TOMOGRAPHY THORAX W/O CNTHILARYT Mamie Peter MD [address] [place] [address] [place] [address] Referral ID Status Reason Start Date Expiration Date V isits Requested Visits Authorized [id number] Closed Auto-Generate d Referral 10/22/2022 08/24/2023 1 1 Specialty Diagnoses / Procedures Referred By Contac t Referred To Contact CT IMAGING Diagnoses Lung nodules Procedures CT CHEST WO IVCON DIAGNOSTIC COMPUTED TOMOGRAPHY THORAX W/O CNTHILARYT Elizabeth Mace MD [address] [place] [address] [place] [address] Referral ID Status Reason Start Date Expiration Date V isits Requested Visits Authorized [id number] Closed Auto-Generate d Referral 01/18/2023 02/17/2024 1 1 Reason Onset Date Comments Refill Request 04/26/2023 Care Teams (unrecognized sec tion and content) 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 Relationship Specialty Start Date End Date Mamie Peter MD [address] [place] [address] PCP - General Internal Medicine 04/06/16 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 Relationship Specialty Start Date End Date Mamie Peter MD [address] [place] [address] PCP - General Internal Medicine 04/06/16 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 Relationship Specialty Start Date End Date Mamie Peter MD [address] [place] [address] PCP - General Internal Medicine 04/06/16 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 Relationship Specialty Start Date End Date Mamie Peter MD [address] [place] [address] PCP - General Internal Medicine 04/06/16 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 Relationship Specialty Start Date End Date Mamie Peter MD [address] [place] [address] PCP - General Internal Medicine 04/06/16 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 Relationship Specialty Start Date End Date Mamie Peter MD [address] [place] [address] PCP - General Internal Medicine 04/06/16 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 Relationship Specialty Start Date End Date Mamie Peter MD [address] [place] [address] PCP - General Internal Medicine 04/06/16 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 Relationship Specialty Start Date End Date Mamie Peter MD [address] [place] [address] PCP - General Internal Medicine 04/06/16 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 Relationship Specialty Start Date End Date Mamie Peter MD [address] [place] [address] PCP - General Internal Medicine 04/06/16 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 Relationship Specialty Start Date End Date Mamie Peter MD [address] [place] [address] PCP - General Internal Medicine 04/06/16 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 Relationship Specialty Start Date End Date Mamie Peter MD [address] [place] [address] PCP - General Internal Medicine 04/06/16 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 Relationship Specialty Start Date End Date Mamie Peter MD [address] [place] [address] PCP - General Internal Medicine 04/06/16 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 Relationship Specialty Start Date End Date Mamie Peter MD [address] [facility] [place] [address] PCP - General Internal Medicine 04/06/16 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 Relationship Specialty Start Date End Date Mamie Peter MD [address] [facility] [place] [address] PCP - General Internal Medicine 04/06/16 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 Relationship Specialty Start Date End Date Mamie Peter MD [address] [place] [address] PCP - General Internal Medicine 04/06/16 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 Relationship Specialty Start Date End Date Mamie Peter MD [address] [facility] [place] [address] PCP - General Internal Medicine 04/06/16 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 Relationship Specialty Start Date End Date Mamie Peter MD [address] [place] [address] PCP - General Internal Medicine 04/06/16 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 Relationship Specialty Start Date End Date Mamie Peter MD [address] [place] [address] PCP - General Internal Medicine 04/06/16 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 Relationship Specialty Start Date End Date Mamie Peter MD [address] [facility] [place] [address] PCP - General Internal Medicine 04/06/16 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 Relationship Specialty Start Date End Date Mamie Peter MD [address] [facility] [place] [address] PCP - General Internal Medicine 04/06/16 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 Relationship Specialty Start Date End Date Mamie Peter MD [address] [facility] [place] [address] PCP - General Internal Medicine 04/06/16 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 Relationship Specialty Start Date End Date Mamie Peter MD [address] [facility] [place] [address] PCP - General Internal Medicine 04/06/16 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 Relationship Specialty Start Date End Date Mamie Peter MD [address] [facility] [place] [address] PCP - General Internal Medicine 04/06/16 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 Relationship Specialty Start Date End Date Mamie Peter MD [address] [facility] [address] PCP - General Internal Medicine 04/06/16 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 Relationship Specialty Start Date End Date Mamie Peter MD [address] [facility] [place] [address] PCP - General Internal Medicine 04/06/16 FOR RECORDS PERTAINING TO PATIENTS WHO ARE OR HAVE BEEN ENROLLED IN A CHEMICAL DEPENDENCY/SUBSTANCEABUSE PROGRAM, SOME INFORMATION MAY BE OMITTED. This clinical summary was aggregated from multiple sources. Caution should be exercised in using it in the provision of clinical care. This summary normalizes information from multiple sources, and as a consequence, information in this document may materially change the coding, format and clinical context of patient data. In addition, data may be omitted in some cases. CLINICAL DECISIONS SHOULD BE BASED ON THE PRIMARY CLINICAL RECORDS. [facility] [employer] [facility]. provides no warranty or guarantee of the accuracy or completeness of information in this document.
[2023-07-13 18:34] LABS: Absolute Lymphocyte Count 1.59 X10^3/uL (0.83-4.51); Absolute Neutrophil Count 4.8 X10^3/uL (2.0-7.7); Basophil# 0.07 X10^3/uL; Eosinophil# 0.18 X10^3/uL; Eosinophils% 2.5 % (0-5); Hematocrit 38.2 % (37-47); Hemoglobin 12.8 g/dL (12.0-15.0); Lymphocyte # 1.59 X10^3/ul (0.83-4.51); Lymphocyte % 21.8 % (19-41); Mean Corp Hgb Conc 33.5 g/dL (32-36); Mean Corpuscular Volume 83.6 fL (81-99); Mean Platelet Vol. 10.9 fl (6.2-12.0); Monocyte# 0.61 X10^3/uL; Monocyte% 8.4 % (0-10); NRBC Flagged by Analyzer 0 % (0-5); Neutrophil # 4.83 X10^3/uL (2.7-7.7); Neutrophil % 66.2 % (47-70); Platelet Count 229 K/mm3 (150-450); RBC Distribution Width CV 13.6 % (11.6-14.6); RBC Distribution Width SD 41.1 fl (35.1-43.9); Red Blood Count 4.57 M/mm3 (4.2-5.4); White Blood Count 7.3 K/mm3 (4.4-11.0)
[2023-07-13 18:43] LABS: Prothrombin Time (Protime)PT. 13.4 SECONDS (11.7-14.9)
[2023-07-13 18:46] LABS: Partial Thromboplast Time 32.3 Seconds (24.1-36.2)
--- NOTE | 2023-07-13 19:04 | EDS_ITS ---
HPI <Samantha Davila RN - Last Filed: 07/13/23 22:23> History of Present Illness Chief Complaint: GI Bleed Informant: patient Onset/Context/Timing Onset: Today Associated Symptoms Associated Symptoms: Abdominal pain and nausea with dry heaving Narrative Narrative: Patient is an 83-year-old female who presents with blood and mucus in her stool and left and right-sided abdominal pain. Patient reports symptoms began this morning. Describes pain as sharp, lasting a few minutes. Patient then has had diarrhea streaked with bright red blood and mucus. Patient also reports 3-4 episodes of dry heaving. Patient reports similar episode a few years ago while in [place]. Diagnosed with GI bleed at that time. Patient denies weakness & dizziness. Patient currently on Brilinta. Patient also reports episode of shortness of breath and chest pain yesterday for approximately 2 minutes. Self resolved. Patient denies cough and fever. Prior similar symptoms: Yes Recent Illness/Hospitalization: No PFSH <Samantha Davila RN - Last Filed: 07/13/23 22:23> [facility] Medical History Atherosclerosis of [place] coronary artery of [place] heart without angina pectoris Essential (primary) hypertension Intermittent claudication Pure hypercholesterolemia Stenosis of left carotid artery Home Medications calcium carbonate 500 mg calcium (1,250 mg) tablet 500 mg PO BIDCM supplement 05/21/19 [History Last Taken 05/21/19] cholecalciferol (vitamin D3) 25 mcg (1,000 unit) tablet 1,000 unit PO DAILY supplement 05/21/19 [History Last Taken 05/21/19] multivitamin 1 tab PO DAILY 05/03/21 [History Last Taken Unknown] echinacea 400 mg capsule 400 mg PO TID PRN 05/17/22 [History Last Taken Unknown] esomeprazole magnesium 40 mg capsule,delayed release 40 mg PO DAILY PRN 05/17/22 [History Last Taken Unknown] amlodipine 5 mg tablet 5 mg PO DAILY #90 tabs 08/16/22 [Rx Last Taken Unknown] aspirin 81 mg tablet,delayed release 81 mg PO DAILY #90 tabs 08/16/22 [Rx Last Taken Unknown] colestipol 1 gram tablet 1 g PO BID #180 tabs 08/16/22 [Rx Last Taken Unknown] ezetimibe 10 mg tablet See Rx Instructions .Route .COMPLEX #90 TABLETS 08/16/22 [Rx Last Taken Unknown] levothyroxine 75 mcg tablet 75 mcg PO DAILY thyroid #90 tabs 08/16/22 [Rx Last Taken Unknown] metoprolol tartrate 50 mg tablet 50 mg PO BID #180 tabs 08/16/22 [Rx Last Taken Unknown] nitroglycerin 0.4 mg sublingual tablet 0.4 mg sublingual Q5M PRN Chest Pain #25 tabs 08/16/22 [Rx Last Taken Unknown] ticagrelor 90 mg tablet (Brilinta) 90 mg PO BID #180 tabs 08/16/22 [Rx Last Taken Unknown] amoxicillin 875 mg-potassium clavulanate 125 mg tablet 1 tab PO BID #20 tabs 07/13/23 [Rx Last Taken Unknown] Allergy/AdvReac Type Severity Reaction Status Date / Time DEIRDRE Inhibitors Allergy Unknown Verified 07/13/23 17:34 ARB-Angiotensin Receptor Allergy Unknown Verified 07/13/23 17:34 Antagonist lisinopril AdvReac Intermediate Other Verified 07/13/23 17:34 atorvastatin calcium AdvReac Mild Unknown Verified 07/13/23 17:34 [From Lipitor] pravastatin [From Pravachol] AdvReac Mild Unknown Verified 07/13/23 17:34 Family History Mother CAD (coronary artery disease) Grandmother CAD (coronary artery disease) Surgical History History of appendectomy History of coronary artery stent placement (05/22/19) History of left heart catheterization (08/13/17) History of tonsillectomy Social History household members: none Smoking Status: Never smoker alcohol intake: never substance use type: does not use caffeine: No ROS <Samantha Davila RN - Last Filed: 07/13/23 22:23> ROS ED Constitutional Constitutional ED: Denies chills or fever(s) Eyes Eyes: Denies blurry vision Cardiovascular Cardiovascular: Reports other Details: Chest pain yesterday Respiratory/Chest Respiratory/Chest: Reports other Details: Dyspnea yesterday ; Denies cough Gastrointestinal Gastrointestinal: Reports abdominal pain, diarrhea and melena Genitourinary Genitourinary ED: Denies dysuria or urinary frequency Musculoskeletal Musculoskeletal: Denies arthralgias or myalgias Neurologic Neurologic: Denies headache(s) or weakness EXAM <Samantha Davila RN - Last Filed: 07/13/23 22:23> Physical Exam Const Vital Signs: 07/13/23 17:34 07/13/23 20:34 Temperature 98.2 F Temperature Source Temporal Pulse Rate 66 69 Respiratory Rate 14 17 Blood Pressure 126/55 H 138/71 H Blood Pressure Mean 78 93 Pulse Ox 99 98 Oxygen Delivery Method Room Air Positive well nourished and well developed General Appearance ED: well developed HEENT Reports moist mucous membranes Eyes PERRL Chest Wall inspection of chest normal Resp normal respiratory effort and clear to auscultation bilaterally Cardio regular rate, regular rhythm, S1 normal heart sound and S2 normal heart sound GI normal to inspection, nondistended, normoactive bowel sounds, non-tender and non-distended Auscultation: normoactive bowel sounds Palpation: soft Extremity normal to inspection Neuro oriented x3 Sensorium / Orientation: alert Motor Exam: strength 5/5 throughout Psych mental status grossly normal Skin no rashes or lesions noted <Dr. Carolin Nolasco MD - Last Filed: 07/13/23 21:43> Physical Exam Const Vital Signs: 07/13/23 17:34 07/13/23 20:34 Temperature 98.2 F Temperature Source Temporal Pulse Rate 66 69 Respiratory Rate 14 17 Blood Pressure 126/55 H 138/71 H Blood Pressure Mean 78 93 Pulse Ox 99 98 Oxygen Delivery Method Room Air MDM <Samantha Davila RN - Last Filed: 07/13/23 22:23> MDM History & Record Review Discussion w/independent historian: Patient Lab Data Attestation: I reviewed the patient's lab results. Labs: Laboratory Results - last 24 hr 07/13/23 18:30 WBC 7.3 RBC 4.57 Hgb 12.8 Hct 38.2 MCV 83.6 MCH 28.0 MCHC 33.5 RDW Std Deviation 41.1 RDW Coeff of [place] 13.6 Plt Count 229 MPV 10.9 Immature Gran % (Auto) 0.100 Neut % (Auto) 66.2 Lymph % (Auto) 21.8 [place] % (Auto) 8.4 Eos % (Auto) 2.5 Baso % (Auto) 1.0 Absolute Neuts (auto) 4.8 Absolute Lymphs (auto) 1.59 Nucleated RBC % 0 PT 13.4 INR 1.0 APTT 32.3 Sodium 140 Potassium 3.8 Chloride 111 H Carbon Dioxide 26.0 Anion Gap 3 L BUN 23 H Creatinine 1.24 H Estim Creat Clear Calc 30.40 Est GFR (MDRD) Af Amer 53 L Est GFR (MDRD) Non-Af 44 L BUN/Creatinine Ratio 18.5 Glucose 101 Calcium 8.8 Total Bilirubin 0.20 Direct Bilirubin 0.07 AST 21 ALT 20 Alkaline Phosphatase 86 Troponin I High Sens 10 Total Protein 7.1 Albumin 3.5 Globulin 3.6 Radiography Diagnostic Testing: Clinical Impression(s) from Imaging Studies Abdomen/Pelvis CT 07/13/23 17:54 IMPRESSION: Focal area of wall thickening in the distal transverse colon which may be due to incomplete distention or possibly focal colitis. No other acute abnormalities are identified. Electronically Signed: Ismael Gu MD at 19:59 EST , EKG Initial EKG: Attestation: I personally reviewed and interpreted this EKG as follows: Interpretation: Sinus Rhythm and No Acute Injury Pattern Differential Diagnosis Abdominal Pain: Bowel obstruction Management Discussion w/another healthcare provider: Other (ED provider, Dr. Nolasco) Treatment and Re-Evaluation :: CBC was normal with a white count of 7.3, hemoglobin 12.8, platelets 229. Coags are unremarkable. Chemistry shows a slightly elevated chloride at 111, anion gap of 3, BUN of 23, creatinine 1.24, glucose 101. LFTs are unremarkable. Troponin negative. EKG shows sinus rhythm. CT abdomen pelvis showed possible focal colitis. Patient received 1 L normal saline followed by saline at 150 an hour. Patient also received a dose of Augmentin 875 mg p.o. <Dr. Carolin Nolasco MD - Last Filed: 07/13/23 21:43> [facility] MDM Narrative Medical decision making narrative: IV line initiated. Labwork obtained to evaluate for leukocytosis, anemia, and electrolyte derangement. Stool guaiac sent from sample patient brought with her. CT scan of the abdomen and pelvis with IV contrast obtained to evaluate for bowel wall thickening, obstruction, inflammation. Lab Data Labs: Laboratory Results - last 24 hr 07/13/23 18:30 WBC 7.3 RBC 4.57 Hgb 12.8 Hct 38.2 MCV 83.6 MCH 28.0 MCHC 33.5 RDW Std Deviation 41.1 RDW Coeff of [place] 13.6 Plt Count 229 MPV 10.9 Immature Gran % (Auto) 0.100 Neut % (Auto) 66.2 Lymph % (Auto) 21.8 [place] % (Auto) 8.4 Eos % (Auto) 2.5 Baso % (Auto) 1.0 Absolute Neuts (auto) 4.8 Absolute Lymphs (auto) 1.59 Nucleated RBC % 0 PT 13.4 INR 1.0 APTT 32.3 Sodium 140 Potassium 3.8 Chloride 111 H Carbon Dioxide 26.0 Anion Gap 3 L BUN 23 H Creatinine 1.24 H Estim Creat Clear Calc 30.40 Est GFR (MDRD) Af Amer 53 L Est GFR (MDRD) Non-Af 44 L BUN/Creatinine Ratio 18.5 Glucose 101 Calcium 8.8 Total Bilirubin 0.20 Direct Bilirubin 0.07 AST 21 ALT 20 Alkaline Phosphatase 86 Troponin I High Sens 10 Total Protein 7.1 Albumin 3.5 Globulin 3.6 Radiography Diagnostic Testing: Clinical Impression(s) from Imaging Studies Abdomen/Pelvis CT 07/13/23 17:54 IMPRESSION: Focal area of wall thickening in the distal transverse colon which may be due to incomplete distention or possibly focal colitis. No other acute abnormalities are identified. Electronically Signed: Ismael Gu MD at 19:59 EST , Differential Diagnosis Abdominal Pain: Bowel obstruction Reason(s) bowel obstruction less likely: bowel sounds present on exam and no evidence of bowel obstruction on imaging studies Treatment and Re-Evaluation :: CBC was normal with a white count of 7.3, hemoglobin 12.8, platelets 229. Coags are unremarkable. Chemistry shows a slightly elevated chloride at 111, anion gap of 3, BUN of 23, creatinine 1.24, glucose 101. LFTs are unremarkable. T roponin negative. EKG shows sinus rhythm. CT abdomen pelvis showed possible focal colitis. Patient received 1 L normal saline followed by saline at 150 an hour. Patient also received a dose of Augmentin 875 mg p.o. Patient seen and evaluated with OLEG student. I personally interviewed and examined the patient. I was involved in all aspects of patient's orders, interpretation of results, and treatment. Patient presents secondary to blood and mucus in her stool today. She has been having some intermittent abdominal pain and cramping. She had a brief episode of chest pain yesterday. Patient denies fever or chills. Patient sitting upright in bed no acute distress. Nontoxic-appearing. Head and neck examination unremarkable. Heart is regular rate and rhythm. Lung sounds are clear. Abdomen is soft with no focal tenderness. CBC reveals normal white count at 7.3 with a hemoglobin of 12.8. Normal differential. Coags unremarkable. Chemistry studies significant for BUN of 23 and creatinine 1.24. LFTs unremarkable. EKG is sinus rhythm at 64 bpm with no sign of acute ischemia. CT scan of the abdomen pelvis with contrast reveals a focal area of bowel wall thickening in the distal transverse colon. This may be secondary to incomplete distention or possibly focal colitis. With the patient having abdominal cramping with mucousy stool containing blood today, she will be treated with antibiotics for colitis. Patient is comfortable with the plan. She was given strict return instructions. Discharge Plan Triage Chief Complaint: GI Bleed ED Provider: Carolin Nolasco Dx/Rx/DC Orders Clinical Impression: GI bleed, Colitis Instructions: ED Diarrhea, Bacterial (Adult), ED Lower GI Bleeding (Stable) Prescriptions: New amoxicillin-pot clavulanate 875-125 mg tablet 1 tab PO BID Qty: 20 0RF No Action multivitamin Tablet 1 tab PO DAILY esomeprazole magnesium 40 mg capsule,delayed release(DR/EC) 40 mg PO DAILY PRN echinacea 400 mg capsule 400 mg PO TID PRN Rx Instructions: administer with meals amlodipine 5 mg tablet 5 mg PO DAILY Qty: 90 3RF colestipol 1 gram tablet 1 g PO BID Qty: 180 3RF ezetimibe 10 mg tablet See Rx Instructions .ROUTE .COMPLEX Qty: 90 3RF Dose Instruction: TAKE 1 TABLET DAILY Rx Instructions: TAKE 1 TABLET DAILY metoprolol tartrate 50 mg tablet 50 mg PO BID Qty: 180 3RF levothyroxine 75 mcg tablet 75 mcg PO DAILY Qty: 90 3RF Brilinta 90 mg tablet 90 mg PO BID Qty: 180 3RF aspirin 81 mg tablet,delayed release (DR/EC) 81 mg PO DAILY Qty: 90 3RF nitroglycerin 0.4 mg tablet, sublingual 0.4 mg SUBLINGUAL Q5M PRN (Reason: Chest Pain) Qty: 25 3RF calcium carbonate 500 MG tablet 500 mg PO BIDCM cholecalciferol (vitamin D3) 1,000 UNIT tablet 1,000 unit PO DAILY Primary Care Provider: Mamie Mendez Referrals: Mamie Mendez MD [Primary Care Provider] - 1 Week Disposition Disposition: Home, Self Care Discharge Date/Time: 07/13/23 20:35
[2023-07-13 19:08] LABS: AST(SGOT) 21 U/L (15-37); Alanine Aminotransfer ALT/SGPT 20 U/L (13-56); Albumin, Serum 3.5 g/dL (3.2-5.0); Alkaline Phosphatase 86 U/L (45-117); Anion Gap 3 (5-15); BUN 23 mg/dL (7-18); BUN/Creat Ratio 18.5 RATIO (10-20); Bilirubin, Direct 0.07 mg/dL (0.00-0.30); Calcium,Total 8.8 mg/dL (8.5-10.1); Chloride 111 mmol/L (98-107); Creatinine, Serum 1.24 mg/dL (0.55-1.02); EST Glomerular Filtration Rate 44 mL/min (>60); Est Glom Filt Rate - Afr Amer 53 mL/min (>60); Globulin 3.6 g/dL (2.2-4.2); Glucose 101 mg/dL (74-106); Potassium 3.8 mmol/L (3.5-5.1); Protein, Total 7.1 g/dL (6.4-8.2); Sodium Level 140 mmol/L (136-145); Troponin-I HS 10 pg/mL (3.0-54.0)
[2023-07-13] MEDS: Amox/Clavulanate 875 MG Tablet PO (20:30)
[2023-07-13 20:34] VITALS: BP 138/71; PULSE 69; RESP 17; O2SAT 98
== END 2023-07-13 20:35 | disposition home or self-care (01) ==
PROVIDERS: Emergency Provider Emergency Medicine; PCP Internal Medicine; Visit Provider Emergency Medicine
DX: K52.9 Noninfective gastroenteritis and colitis, unspecified (principal); Z79.02 Long term (current) use of antithrombotics/antiplatelets; I10 Essential (primary) hypertension; E78.00 Pure hypercholesterolemia, unspecified
CPT/HCPCS: 74177; 80048; 80076; 82274; 84484; 85025; 85610; 85730; 93005; 96360; 96361; 99284; J7030; Q9967

== ENCOUNTER → 2023-10-26 | Outpatient (CLI) | payer MEDICARE, OTHER, SELFPAY ==
[2023-10-26 10:51] LABS: Absolute Lymphocyte Count 1.63 X10^3/uL (0.83-4.51); Absolute Neutrophil Count 2.7 X10^3/uL (2.0-7.7); Basophil# 0.05 X10^3/uL; Eosinophil# 0.16 X10^3/uL; Eosinophils% 3.3 % (0-5); Hematocrit 38.6 % (37-47); Hemoglobin 12.9 g/dL (12.0-15.0); Lymphocyte # 1.63 X10^3/ul (0.83-4.51); Lymphocyte % 33.2 % (19-41); Mean Corp Hgb Conc 33.4 g/dL (32-36); Mean Corpuscular Hgb 28.6 pg (27.0-32.0); Mean Corpuscular Volume 85.6 fL (81-99); Mean Platelet Vol. 11.7 fl (6.2-12.0); Monocyte# 0.38 X10^3/uL; Monocyte% 7.7 % (0-10); NRBC Flagged by Analyzer 0 % (0-5); Neutrophil # 2.68 X10^3/uL (2.7-7.7); Neutrophil % 54.6 % (47-70); Platelet Count 185 K/mm3 (150-450); RBC Distribution Width CV 13.7 % (11.6-14.6); RBC Distribution Width SD 42.7 fl (35.1-43.9); Red Blood Count 4.51 M/mm3 (4.2-5.4); White Blood Count 4.9 K/mm3 (4.4-11.0)
[2023-10-26 11:22] LABS: AST(SGOT) 19 U/L (15-37); Alanine Aminotransfer ALT/SGPT 21 U/L (13-56); Albumin, Serum 3.4 g/dL (3.2-5.0); Alkaline Phosphatase 83 U/L (45-117); Anion Gap 5 (5-15); BUN 18 mg/dL (7-18); BUN/Creat Ratio 17.3 RATIO (10-20); Chloride 113 mmol/L (98-107); Cholesterol 179 mg/dL (200); Creatinine, Serum 1.04 mg/dL (0.55-1.02); EST Glomerular Filtration Rate 54 mL/min (>60); Est Glom Filt Rate - Afr Amer 65 mL/min (>60); Globulin 3.4 g/dL (2.2-4.2); Glucose 80 mg/dL (74-106); High Density Lipoprotein 47 mg/dL; Potassium 3.7 mmol/L (3.5-5.1); Protein, Total 6.8 g/dL (6.4-8.2); Sodium Level 141 mmol/L (136-145); Thyroid Stim Hormone (TSH) 1.09 uIU/mL (0.358-3.74); Triglycerides 98 mg/dL; Very Low Density Lipoprotein 20 mg/dL (5-40)
[2023-10-31 14:33] LABS: BNP,B-Type NATRIURETIC PEPTIDE 59.2 pg/mL (0-100)
== END | disposition home or self-care (01) ==
LOC: LAB 09:06
PROVIDERS: Nurse Practitioner Family; PCP Internal Medicine; Referring Provider Nurse Practitioner Gerontology; Visit Provider Nurse Practitioner Gerontology
DX: I25.10 Atherosclerotic heart disease of native coronary artery without angina pectoris (principal); R11.0 Nausea; R53.83 Other fatigue; D69.9 Hemorrhagic condition, unspecified; E78.00 Pure hypercholesterolemia, unspecified; I65.22 Occlusion and stenosis of left carotid artery; R06.02 Shortness of breath
CPT/HCPCS: 36415; 80053; 80061; 83880; 84443; 85025

== ENCOUNTER → 2023-12-06 | Outpatient (CLI) | payer MEDICARE, OTHER, SELFPAY ==
[2023-12-06 16:50] LABS: Absolute Lymphocyte Count 1.84 X10^3/uL (0.83-4.51); Absolute Neutrophil Count 3.9 X10^3/uL (2.0-7.7); Basophil# 0.05 X10^3/uL; Basophil% 0.8 % (0-1); Eosinophil# 0.19 X10^3/uL; Eosinophils% 2.9 % (0-5); Hematocrit 40.4 % (37-47); Hemoglobin 13.6 g/dL (12.0-15.0); Lymphocyte # 1.84 X10^3/ul (0.83-4.51); Lymphocyte % 28.2 % (19-41); Mean Corp Hgb Conc 33.7 g/dL (32-36); Mean Corpuscular Hgb 28.9 pg (27.0-32.0); Mean Corpuscular Volume 85.8 fL (81-99); Mean Platelet Vol. 10.8 fl (6.2-12.0); Monocyte# 0.57 X10^3/uL; Monocyte% 8.7 % (0-10); NRBC Flagged by Analyzer 0 % (0-5); Neutrophil # 3.87 X10^3/uL (2.7-7.7); Neutrophil % 59.2 % (47-70); Platelet Count 229 K/mm3 (150-450); RBC Distribution Width CV 13.6 % (11.6-14.6); RBC Distribution Width SD 41.9 fl (35.1-43.9); Red Blood Count 4.71 M/mm3 (4.2-5.4); White Blood Count 6.5 K/mm3 (4.4-11.0)
[2023-12-06 17:21] LABS: Anion Gap 6 (5-15); BUN 33 mg/dL (7-18); Calcium,Total 9.7 mg/dL (8.5-10.1); Chloride 109 mmol/L (98-107); Creatinine, Serum 1.18 mg/dL (0.55-1.02); EST Glomerular Filtration Rate 46 mL/min (>60); Est Glom Filt Rate - Afr Amer 56 mL/min (>60); Glucose 96 mg/dL (74-106); Sodium Level 141 mmol/L (136-145)
== END | disposition home or self-care (01) ==
LOC: LAB 15:55
PROVIDERS: PCP Internal Medicine; Referring Provider Nurse Practitioner Family; Visit Provider Nurse Practitioner Family
DX: R53.1 Weakness (principal); R53.83 Other fatigue; D69.9 Hemorrhagic condition, unspecified; R11.0 Nausea; R68.2 Dry mouth, unspecified
CPT/HCPCS: 36415; 80048; 85025

== ENCOUNTER 2024-04-07 11:28 | Emergency (ER) | payer MEDICARE, OTHER, SELFPAY ==
[2024-04-07 11:29] VITALS: BP 152/77; PULSE 75; RESP 16; TEMP 37.1; O2SAT 95; BMI 27.3
--- NOTE | 2024-04-07 11:55 | RAD_ITS ---
STUDY: X-RAY CHEST REASON FOR EXAM: Female, 83 years old. Chest pain TECHNIQUE: Single AP portable view of the chest. COMPARISON: Comparison is made with prior study May 31, 2020. FINDINGS: EKG electrodes are seen. Hyperinflation. The lungs are clear. There is no demonstrated pleural abnormality. Evidence of prior coronary artery stenting. Normal mediastinum and eric. Normal visualized pulmonary arteries. There is atherosclerotic calcification of the aortic arch with tortuosity. There are diffuse degenerative changes of the visualized thoracic spine. Normal visualized ribs, clavicles, and shoulders. There is no demonstrated abnormality of the visualized soft tissue structures of the upper abdomen. RAD/Chest 1 View (Portable) IMPRESSION: Hyperinflation. No acute abnormality is seen. Electronically Signed: Ronal Day MD at 13:02 EDT ,
[2024-04-07 12:16] LABS: Absolute Lymphocyte Count 1.85 X10^3/uL (0.83-4.51); Absolute Neutrophil Count 3.3 X10^3/uL (2.0-7.7); Basophil# 0.06 X10^3/uL; Eosinophils% 3.4 % (0-5); Hematocrit 36.2 % (37-47); Hemoglobin 12.3 g/dL (12.0-15.0); Lymphocyte # 1.85 X10^3/ul (0.83-4.51); Lymphocyte % 31.6 % (19-41); Mean Corpuscular Hgb 28.9 pg (27.0-32.0); Mean Corpuscular Volume 85.2 fL (81-99); Mean Platelet Vol. 10.5 fl (6.2-12.0); Monocyte# 0.46 X10^3/uL; Monocyte% 7.8 % (0-10); NRBC Flagged by Analyzer 0 % (0-5); Neutrophil # 3.26 X10^3/uL (2.7-7.7); Neutrophil % 55.7 % (47-70); Platelet Count 232 K/mm3 (150-450); RBC Distribution Width CV 13.4 % (11.6-14.6); RBC Distribution Width SD 41.8 fl (35.1-43.9); Red Blood Count 4.25 M/mm3 (4.2-5.4); White Blood Count 5.9 K/mm3 (4.4-11.0)
[2024-04-07 12:28] VITALS: BP 142/63; PULSE 64
[2024-04-07 12:37] LABS: Anion Gap 7 (5-15); BUN 22 mg/dL (7-18); BUN/Creat Ratio 19.3 RATIO (10-20); Calcium,Total 8.6 mg/dL (8.5-10.1); Chloride 110 mmol/L (98-107); Creatinine, Serum 1.14 mg/dL (0.55-1.02); EST Glomerular Filtration Rate 48 mL/min (>60); Est Glom Filt Rate - Afr Amer 58 mL/min (>60); Estimated Creatinine Clearance 33.14 ml/min; Glucose 115 mg/dL (74-106); Potassium 3.8 mmol/L (3.5-5.1); Sodium Level 142 mmol/L (136-145); Troponin-I HS (w/2H Reflex) 7 pg/mL (3.0-54.0)
[2024-04-07 13:00] VITALS: BP 140/52; PULSE 62; RESP 17
[2024-04-07 14:00] VITALS: BP 138/62; PULSE 62; RESP 16
[2024-04-07 14:04] LABS: Reflex Troponin-HS? (from REC) Y
--- NOTE | 2024-04-07 14:37 | ED.VIS.CHEST ---
HPI History of Present Illness Chief Complaint: Chest Pain Informant: patient Narrative Narrative: 83-year-old female presents for an episode of chest discomfort that started yesterday. She has had no symptoms today. She states she walked a mile and she had no problems. Then at home she was resting and she developed some discomfort substernal and heaviness/aching in both of her arms. She states that she was just sitting or resting when this occurred. She remembers drinking some water and taking a nitro and then going to bed. When she woke up this morning she felt fine. She is here in the ER because she tried to call the heart group, as she follows with Dr. zarate, and she states that she could not get through to a person, then apparently they return to call her back but her phone would not work and then the police showed up at her house to make sure she was okay and brought her to the ER. She has a history of 5 stents and is compliant with her medications which includes Brilinta. She does admit to having some intermittent claudication and states sometimes she gets cramping in her legs even when she is not walking or exerting herself and is lying in bed. She describes it being in the lateral calf and the thigh. [facility] Medical History Stenosis of left carotid artery Essential (primary) hypertension Pure hypercholesterolemia Atherosclerosis of [place] coronary artery of [place] heart without angina pectoris Intermittent claudication Home Medications ?Medication ?Instructions ?Recorded ?Last Taken ?Type calcium carbonate 500 mg PO BIDCM supplement 05/21/19 05/21/19 History cholecalciferol (vitamin D3) 25 1,000 unit PO DAILY supplement 05/21/19 05/21/19 History mcg (1,000 unit) tablet multivitamin 1 tab PO DAILY 05/03/21 Unknown History esomeprazole magnesium 40 mg 40 mg PO DAILY 05/17/22 Unknown History capsule,delayed release aspirin 81 mg tablet,delayed 81 mg PO DAILY #90 tabs 08/16/22 Unknown Rx release colestipol 1 gram tablet 1 g PO BID #180 tabs 08/16/22 Unknown Rx ezetimibe 10 mg tablet See Rx Instructions .Route 08/16/22 Unknown Rx .COMPLEX #90 TABLETS nitroglycerin 0.4 mg sublingual 0.4 mg sublingual Q5M PRN Chest 08/16/22 Unknown Rx tablet Pain #25 tabs metoprolol tartrate 50 mg tablet 50 mg PO BID #180 tabs 10/17/23 Unknown Rx levothyroxine 75 mcg tablet 75 mcg PO DAILY thyroid #90 tabs 10/31/23 Unknown Rx amlodipine 5 mg tablet 5 mg PO DAILY #90 tabs 11/01/23 Unknown Rx ticagrelor 90 mg tablet (Brilinta) 90 mg PO BID 04/07/24 Unknown History Allergy/AdvReac Type Severity Reaction Status Date / Time DEIRDRE Inhibitors Allergy Unknown Verified 04/07/24 11:36 ARB-Angiotensin Receptor Allergy Unknown Verified 04/07/24 11:36 Antagonist lisinopril AdvReac Intermediate Other Verified 04/07/24 11:36 atorvastatin calcium (From AdvReac Mild Unknown Verified 04/07/24 11:36 Lipitor) pravastatin (From Pravachol) AdvReac Mild Unknown Verified 04/07/24 11:36 Family History Mother CAD (coronary artery disease) Grandmother CAD (coronary artery disease) Surgical History History of appendectomy History of coronary artery stent placement (05/22/19) History of left heart catheterization (08/13/17) History of tonsillectomy Social History household members: none Smoking Status: Never smoker alcohol intake: never substance use type: does not use caffeine: No ROS ROS ED Constitutional Constitutional ED: Denies chills or fever(s) Eyes Eyes: Denies change in vision or diplopia ENT ENT ED: Denies rhinorrhea or sore throat Cardiovascular Cardiovascular: Reports as per HPI and chest pain; Denies palpitations Respiratory/Chest Respiratory/Chest: Denies cough or dyspnea Gastrointestinal Gastrointestinal: Denies abdominal pain, diarrhea, nausea or vomiting Genitourinary Genitourinary ED: Denies dysuria or hematuria Musculoskeletal Musculoskeletal: Reports other Details: Intermittent claudication see HPI ; Denies back pain or neck pain Integumentary Denies abscess or rash Neurologic Neurologic: Denies headache(s), paresthesias or weakness Psychiatric Psychiatric: Denies anxiety or suicidal thoughts EXAM Physical Exam Const Vital Signs: 04/07/24 11:29 04/07/24 11:40 04/07/24 11:57 Temperature 98.8 F Temperature Source Oral Pulse Rate 75 Respiratory Rate 16 Respiratory Pattern Normal Blood Pressure 152/77 H Blood Pressure Mean 102 Pulse Ox 95 Oxygen Delivery Method Room Air Room Air 04/07/24 12:28 04/07/24 13:00 04/07/24 14:00 Temperature Temperature Source Pulse Rate 64 62 62 Respiratory Rate 17 16 Respiratory Pattern Blood Pressure 142/63 H 140/52 H 138/62 H Blood Pressure Mean 89 81 87 Pulse Ox Oxygen Delivery Method Positive well nourished and well developed Constitutional Narrative: well-appearing General Appearance ED: well developed and NAD HEENT Reports moist mucous membranes normocephalic and atraumatic Eyes PERRL and EOMs intact bilaterally Neck full ROM and supple Resp normal respiratory effort and clear to auscultation bilaterally Cardio regular rate, regular rhythm and no murmurs Rate: Negative for tachycardic Peripheral Pulses: pulses 2+ throughout, radial pulses present bilateral 2+ and posterior tibial pulses present bilateral 2+ GI non-tender and non-distended Auscultation: normoactive bowel sounds Palpation: soft Back/Spine no CVA tenderness General Back: other FROM Extremity normal to inspection Extremity Narrative: No calf tenderness bilaterally. No palpable cords. No asymmetric edema. General Extremety ED: Negative for edema, pulses abnormal or tenderness General Extremity: Negative for edema or pulses abnormal Neuro oriented x3, CN's II-XII intact bilaterally and no sensory deficits noted Sensorium / Orientation: awake and alert Motor Exam: strength 5/5 throughout Skin no rashes or lesions noted and no wounds Heart Score History: Slightly/Non-Suspicious ECG: Normal Age: >/= 65 years Risk Factors: >/= 3 Risk Factors or History of CAD Troponin: </= Normal Limit Score: 4 MDM MDM MDM Narrative Medical decision making narrative: 1 view chest x-ray on my interpretation is normal, her EKG is normal, she is asymptomatic and has been all day. 2 sequential troponins were obtained and both negative in the single digits. Her labs are noted. Her vital signs are also noted and stable. She is doing well and I think she is stable to be discharged home to follow-up closely as an outpatient she is comfortable with that plan. Lab Data Attestation: I reviewed the patient's lab results. Labs: Laboratory Results - last 24 hr 04/07/24 04/07/24 11:53 14:15 WBC 5.9 RBC 4.25 Hgb 12.3 Hct 36.2 L MCV 85.2 MCH 28.9 MCHC 34.0 RDW Std Deviation 41.8 RDW Coeff of [place] 13.4 Plt Count 232 MPV 10.5 Immature Gran % (Auto) 0.500 Neut % (Auto) 55.7 Lymph % (Auto) 31.6 [place] % (Auto) 7.8 Eos % (Auto) 3.4 Baso % (Auto) 1.0 Absolute Neuts (auto) 3.3 Absolute Lymphs (auto) 1.85 Nucleated RBC % 0 Sodium 142 Potassium 3.8 Chloride 110 H Carbon Dioxide 25.0 Anion Gap 7 BUN 22 H Creatinine 1.14 H Estim Creat Clear Calc 33.14 Est GFR (MDRD) Af Amer 58 L Est GFR (MDRD) Non-Af 48 L BUN/Creatinine Ratio 19.3 Glucose 115 H Calcium 8.6 Troponin I High Sens 7 9 Radiography Diagnostic Testing: Clinical Impression(s) from Imaging Studies Chest X-Ray 04/07/24 11:55 IMPRESSION: Hyperinflation. No acute abnormality is seen. Electronically Signed: Ronal Day MD at 13:02 EDT , Rhythm Strip Rhythm Strip: Sinus Rhythm Rate: 70 Ectopy: None EKG Initial EKG: Attestation: I personally reviewed and interpreted this EKG as follows: Interpretation: Sinus Rhythm and No Acute Injury Pattern Comments: Normal EKG. Patient asymptomatic. Discharge Plan Triage Chief Complaint: Chest Pain ED Provider: Avni Anderson Dx/Rx/DC Orders Clinical Impression: Chest pain, unspecified Instructions: ED Chest Pain, Uncertain Cause Prescriptions: No Action multivitamin Tablet 1 tab PO DAILY esomeprazole magnesium 40 mg capsule,delayed release(DR/EC) 40 mg PO DAILY colestipol 1 gram tablet 1 g PO BID Qty: 180 3RF ezetimibe 10 mg tablet See Rx Instructions .ROUTE .COMPLEX Qty: 90 3RF Dose Instruction: TAKE 1 TABLET DAILY Rx Instructions: TAKE 1 TABLET DAILY aspirin 81 mg tablet,delayed release (DR/EC) 81 mg PO DAILY Qty: 90 3RF nitroglycerin 0.4 mg tablet, sublingual 0.4 mg SUBLINGUAL Q5M PRN (Reason: Chest Pain) Qty: 25 3RF calcium carbonate 500 MG tablet 500 mg PO BIDCM cholecalciferol (vitamin D3) 1,000 UNIT tablet 1,000 unit PO DAILY Brilinta 90 mg tablet 90 mg PO BID metoprolol tartrate 50 mg tablet 50 mg PO BID Qty: 180 3RF levothyroxine 75 mcg tablet 75 mcg PO DAILY Qty: 90 3RF amlodipine 5 mg tablet 5 mg PO DAILY Qty: 90 3RF Primary Care Provider: Mamie Mendez Referrals: Mamie Mendez MD [Primary Care Provider] - Enrique Zarate MD [Med Staff - Active Staff] - (call for appt) Print Language: Singaporean Disposition Disposition: Home, Self Care
[2024-04-07 14:46] LABS: Troponin-I HS 9 pg/mL (3.0-54.0)
[2024-04-07 15:00] VITALS: BP 149/74; PULSE 63
[2024-04-07 15:19] VITALS: BP 141/79; PULSE 72; RESP 19; TEMP 36.9; O2SAT 100
== END 2024-04-07 15:20 | disposition home or self-care (01) ==
PROVIDERS: Emergency Provider Emergency Medicine; PCP Internal Medicine; Visit Provider Emergency Medicine
DX: R07.9 Chest pain, unspecified (principal); I25.10 Atherosclerotic heart disease of native coronary artery without angina pectoris; M79.602 Pain in left arm; I10 Essential (primary) hypertension; M79.601 Pain in right arm; E78.00 Pure hypercholesterolemia, unspecified; I73.9 Peripheral vascular disease, unspecified; Z95.5 Presence of coronary angioplasty implant and graft; Z79.02 Long term (current) use of antithrombotics/antiplatelets
CPT/HCPCS: 71045; 80048; 84484; 85025; 93005; 99285; A4216

== ENCOUNTER → 2024-04-29 | Outpatient (CLI) | payer MEDICARE, OTHER, SELFPAY ==
--- NOTE | 2024-04-29 08:42 | CDU_ITS ---
Reason For Study: CAROTID STENOSIS Rt. Velocities/BP Lt. Velocities/BP Prox CCA 78.0/12.8 cm/sec. Prox CCA 96.5/17.9 cm/sec. Mid CCA 79.0/12.8 cm/sec. Mid CCA 127.1/28.5 cm/sec. Dist CCA 76.1/13.8 cm/sec. Dist CCA 107.0/21.2 cm/sec. Prox ICA 84.6/10.9 cm/sec. Prox ICA 247.6/37.5 cm/sec. Mid ICA 97.6/15.9 cm/sec. Mid ICA 131.3/16.3 cm/sec. Dist ICA 165.3/22.6 cm/sec. Dist ICA 107.6/32.7 cm/sec. Rt. ICA/CCA = 165.3/79.0=2.1. Lt. ICA/CCA = 247.6/127.1=1.9. Prox ECA 116.2/4.4 cm/sec. Prox ECA 213.0/9.4 cm/sec. Rt. Vert. 36.5/10.0 cm/sec. Lt. Vert. 50.8/15.6 cm/sec. Right Extracranial There is heterogeneous, irregular atherosclerotic plaque noted in the right common carotid artery. There is heterogeneous, irregular atherosclerotic plaque noted in the right internal carotid artery. The tortuous nature of the right internal carotid artery may result in flow velocities overestimating the degree of stenosis. There is intimal thickening but no significant atherosclerotic plaque noted in the right external carotid artery. Antegrade flow is noted in the right vertebral artery. Left Extracranial There is heterogeneous, irregular atherosclerotic plaque noted in the left common carotid artery. There is heterogeneous, irregular atherosclerotic plaque noted in the left internal carotid artery. The tortuous nature of the left internal carotid artery may result in flow velocities overestimating the degree of stenosis. There is heterogeneous, irregular atherosclerotic plaque noted in the left external carotid artery. Antegrade flow is noted in the left vertebral artery. Procedure Carotid Duplex [id number]. This is a Carotid Duplex examination using B-mode, color flow and specral Doppler. Exam performed in department. VL/Carotid Duplex Ultrasound Interpretation Summary Moderate (50-69%) stenosis right extracranial internal carotid. Severe (>70%) stenosis left extracranial internal carotid. Patent and antegrade vertebrals bilaterally. Ordering Physician: Edu Caceres Referring Physician: Mamie Mendez Performed By: Karishma Holland, MIKHAIL, RVT
== END | disposition home or self-care (01) ==
PROVIDERS: PCP Internal Medicine; Referring Provider Surgery Trauma Surgery; Visit Provider Surgery Trauma Surgery
DX: I65.22 Occlusion and stenosis of left carotid artery (principal)
CPT/HCPCS: 93880

== ENCOUNTER 2025-01-24 22:19 | Emergency (ER) | payer MEDICARE, OTHER, SELFPAY ==
[2025-01-24 22:19] VITALS: BP 176/66; PULSE 63; RESP 18; TEMP 36.6; O2SAT 98; BMI 27.6
--- NOTE | 2025-01-24 22:59 | RAD_ITS ---
PROCEDURE: CHEST 1 VIEW (PORTABLE) 01/24/2025 REASON FOR EXAM: CHEST PAIN TECHNIQUE: Frontal view of the chest. COMPARISON: 04/07/2024 FINDINGS: Lungs/Pleura: Clear. No pneumothorax or sizable pleural effusion. Heart/Mediastinum: Top-normal in size. Mildly tortuous and calcified thoracic aorta. Prominent coronary artery calcifications versus stenting. Bones/Soft tissues: Degenerative changes of the spine. Chronic left humeral head deformity. RAD/Chest 1 View (Portable) IMPRESSION: No evidence of acute cardiopulmonary disease. Reading Location: [id number]
--- OUTSIDE RECORDS SUMMARY | 2025-01-24 23:00 | XMS RPT_ITS | CCD ---
Author Organization [facility] Care Team Providers Care Systems Engineering Manager Name Role Phone Lisa Peter MD Primary Care Provider Dr. Lisa Peter Primary Care Provider Dr. Lisa Peter Referring Provider ROBERTO Hess Attending Provider Lisa Peter MD Primary Care Provider Lisa Peter MD Primary Care Provider Dr. Lisa Peter Primary Care Provider Dr. Lisa Peter Referring Provider Roof SCHEDULING MANAGER, SCHEDULING MANAGER-C Obey Stein Attending Provider Dr. Edu Caceres Attending Provider [phone] Roof SCHEDULING MANAGER, SCHEDULING MANAGER-C Obey Stein Referring Provider ROBERTO Orourke Attending Provider Dr. Lisa Peter Primary Care Provider Dr. Lisa Peter Referring Provider Dr. Edu Caceres Attending Provider Dr. Enrique Zarate Attending Provider Lisa Peter MD Primary Care Provider Nisreen Bermudez PA-C Unavailable Older EVENTS INTERN.EXHIBIT SPECIALIST, Jillian Unavailable Eric Lockett PA-C Unavailable Edu Caceres Attending Unavailable Edu Caceres Referring Unavailable Ganta, Lisa Primary Care Unavailable Roof SCHEDULING MANAGER, Obey H Attending Unavailable Roof SCHEDULING MANAGER, Obey H Referring Unavailable Ganta, Lisa Primary Care Unavailable Otis SCHEDULING MANAGER, Cecilia Attending Unavailable Otis SCHEDULING MANAGER, Cecilia Referring Unavailable Ganta, Lisa Primary Care Unavailable Avni Anderson Attending Unavailable Ganta, Lisa Primary Care Unavailable Ganta, Lisa Primary Care Unavailable Roof SCHEDULING MANAGER, Obey H Attending Unavailable Ganta, Lisa Referring Unavailable WashingtonEdu Attending Unavailable Washington Edu Referring Unavailable Ganta, Lisa Primary Care Unavailable Ganta, Lisa Referring Unavailable Ganta, Lisa Primary Care Unavailable Lulu Orourke Attending Unavailable Navid PERKINS, Nisreen Foss Unavailable Mali PERKINS, Eric Unavailable GANTA, LISA Primary Care Unavailable ERIC LOCKETT Attending Unavailable SHANTE YEBOAH Attending Unavailable GANTA, LISA Primary Care Unavailable PREETNER ERIC Referring Unavailable GANTA, LISA Primary Care Unavailable GANTA, LISA Attending Unavailable GANTA, LISA Primary Care Unavailable ROB RAI Referring Unavailable GANTA, LISA Primary Care Unavailable ROB RAI Attending Unavailable GANTA, LISA Primary Care Unavailable GANTA, LISA Referring Unavailable BOGNERJUAN JERIC Attending Unavailable GANTA, LISA Primary Care Unavailable GANTA, LISA Primary Care Unavailable ALBER MAX Attending Unavailable GANTA, LISA Primary Care Unavailable GANTA, LISA Attending Unavailable GANTA, LISA Primary Care Unavailable GANTA, LISA Referring Unavailable GANTA, LISA Primary Care Unavailable JUAN F LOCKETTE Attending Unavailable BOGNER, ERIC Referring Unavailable GANTA, LISA Primary Care Unavailable BOGNER, ERIC Referring Unavailable GANTA, LISA Primary Care Unavailable PREETNERJUAN JERIC Attending Unavailable GANTA, LISA Primary Care Unavailable BOGNER, ERIC Referring Unavailable GANTA, LISA Primary Care Unavailable SELF Referring Unavailable GANTA, LISA Primary Care Unavailable PREETNER ERIC Attending Unavailable GANTA, LISA Primary Care Unavailable BOGNER, ERIC Referring Unavailable Allergies Allergy Classification Reported Allergen(s) Allergy Type Date of Onset Reaction(s) Facility Angiotensin Converting Enzyme (DEIRDRE) Inhibitors (2 sources) Lisinopril Drug Allergy 06-30-2011 Cough [facility] oxybutynin (2 sources) oxybutynin Drug Allergy 02-24-2019 [facility] Work Phone: (20 sources) Lisinopril; Translations: [LISINOPRIL] Drug Allergy 06-30-2011 Cough [facility] (20 sources) oxybutynin; Translations: [OXYBUTYNIN CHLORIDE] Drug Allergy 02-24-2019 [facility] Work Phone: (9 sources) Angiotensin Converting Enzyme (Deirdre) Inhibitors; Translations: [DEIRDRE Inhibitors] Allergy to substance 11-29-2021 Unknown [facility] (9 sources) atorvastatin; Translations: [atorvastatin calcium] Drug Allergy 11-29-2021 Unknown [facility] (8 sources) Pravastatin Drug Allergy 11-29-2021 Unknown [facility] (9 sources) ARB-Angiotensin Receptor Antagonist; Translations: [ARB-Angiotensin Receptor Antagonist] Allergy to substance 11-29-2021 Unknown [facility] (1 source) Lisinopril Drug Allergy 07-17-2024 [facility] Repository (1 source) Pravastatin Drug Allergy 07-17-2024 [facility] Repository Medications Current Medications Medication Drug Class(es) Dates Sig (Normalized) Sig (Original) acetaminophen 500 mg oral tablet (20 sources) Start: 08-27-2023 take 1 tablet by mouth every six hours as needed acetaminophen (TYLENOL EXTRA STRENGTH) 500 mg tablet Take 1 tablet by mouth every 6 hours as needed for pain. Take this or the hydrocodone/acetami nophen every 6 hours as needed for pain 30 tablet 1 08/27/2023 Active Comment on above: Take 1 tablet by jasmina every 6 hours as needed for pain. Take this or the hydrocodone/acetaminophen every 6 hours as needed for pain acetaminophen 325 mg / HYDROcodone bitartrate 7.5 mg oral tablet (17 sources) Opioid Agonist Start: 08-27-2023 End: 09-03-2023 take 1 tablet by mouth every six hours as needed for pain HYDROcodone-Acetami nophen (NORCO) 7.5-325 mg per tablet Indications: Acute pain of right shoulder , Injury of right shoulder, subsequent encounter Take 1 tablet by mouth every 6 hours as needed for pain for up to 7 days. For shoulder pain 21 tablet 0 08/27/2023 09/03/2023 Active Start: 11-29-2021 End: 05-17-2022 take 1 tablet by mouth every six hours as needed Hydrocodone-Acetaminophen Discontinued 1 TABLET PO EVERY 6 HOURS NEEDED 03 13November 29, 2021 May 17, 2022 9:26am Start: 05-31-2020 End: 06-02-2020 take 1 tablet by mouth every four hours as needed Hydrocodone-Acetaminophen Discontinued 1 TABLET PO EVERY 4 HOURS NEEDED 03 12May 31, 2020 June 02, 2020 12:02am Comment on above: Take 1 tablet by jasmina th every 6 hours as needed for pain for up to 7 days. For shoulder pain amLODIPine 5 mg oral tablet (20 sources) Dihydropyridine Calcium Channel Samantha Start: End: take 1 tablet by mouth once daily amLODIPine (NORVASC) 5 mg tablet Take 1 tablet by mouth once daily. 14 tablet 06/12/2022 Active Comment on above: Take 1 tablet by jasmina once daily. amoxicillin 875 mg / clavulanate 125 mg oral tablet (1 source) Penicillin-class Antibacterial Start: take 1 tablet by mouth twice daily Amoxicillin-Pot Clavulanate Active 1 TABLET PO TWICE A DAY July 13, 2023 12:00am calcium carbonate 1250 mg oral tablet (8 sources) Start: 019 take 500 mg by mouth twice daily at mealtime Calcium Carbonate Active 500 MG PO TWICE DAILY WITH MEALS May 21, 2019 12:00am cholecalciferol 0.05 mg oral capsule (20 sources) Vitamin D Start: 025 take 1 capsule by mouth once daily Cholecalciferol, Vitamin D3, (VITAMIN D-3) 50 mcg (2,000 unit) cap Take 1 capsule by mouth once daily. 90 capsule 1 06/30/2024 Active Start: 05-21-2019 take 1000 [IU] by mo [facility] once daily Cholecalciferol (Vitamin D3) Active 1000 UNIT PO DAILY May 21, 2019 12:00am Start: 09-17-2015 take 1 capsule by mo [facility] once daily cholecalciferol, vitamin D3, 4,000 unit cap Take 1 Dose by mouth once daily. 0 09/17/2015 Active Comment on above: Take 1 Dose by mouth once daily. colestipol hydrochloride 1000 mg oral tablet (20 sources) Bile Acid Sequestrant Start: take 1 tablet by mouth twice daily colestipol (COLESTID) 1 gram tablet Take 1 tablet by mouth two times a day. 180 tablet 10/28/2024 Active Start: 03-02-2015 End: 10-24-2024 take 1 tablet by mouth twice daily colestipol (COLESTID) 1 gram tablet Indications: Coronary artery disease involving [place] coronary artery of [place] heart without angina pectoris Take 1 tablet by mouth two times a day. 180 tablet 3 04/14/2024 10/24/2024 Discontinued (Discontinued by another Health Care Provider) Start: 08-11-2013 End: 01-28-2018 take 2 g by mouth twice daily Colestipol Discontinued 2 GM PO TWICE A DAY 360 June 26, 2017 11:24am January 28, 2018 4:24pm Comment on above: Take 1 tablet by jasmina twice daily. Dr. Zarate Take 1 tablet by jasmina two times a day. Dr. Zarate cyclobenzaprine hydrochloride 10 mg oral tablet (20 sources) Muscle Relaxant Start: 05-31-20 take 0.5 tablet by mouth three times daily as needed for pain cyclobenzaprine (FLEXERIL) 10 mg tablet Indications: Referred otalgia of right ear Take 0.5 tablets by mouth three times daily as needed for muscle spasm or pain. 30 tablet 05/31/2022 Active take 10 mg by mouth every eight hours as needed cyclobenzaprine HCl (CYCLOBENZAPRINE ORA L) Take 10 mg by mouth three times a day as needed. Active Comment on above: Take 0.5 tablets by mouth three times daily as needed for muscle spasm or pain. doxycycline monohydrate 100 mg oral capsule (1 source) Tetracycline-clas s Drug Start: 10-08-2023 End: 10-22-2023 take 1 capsule by mouth twice daily doxycycline monohydrate (MONODOX) 100 mg capsule Take 1 capsule by mouth two times a day for 14 days. 28 capsule 0 10/08/2023 10/22/2023 Active Echinacea (6 sources) Start: 05-17-2022 take 400 mg by mouth three times daily at mealtime Echinacea Active 400 MG PO THREE TIMES A DAY May 17, 2022 1:00am administer with meals Start: 05-17-2022 take 400 mg by mouth three times daily at mealtime Echinacea Active 400 MG PO THREE TIMES A DAY May 17, 2022 12:00am administer with meals enteric contrast (will be provided with radiology test) (2 sources) Start: 03-04-2024 End: 03-05-2024 enteric contrast (will be provided with radiology test) For CT ABD/PEL W IVCON Routine order Administer, As Directed One Time Only, via Oral, Rectal, both Oral and Rectal, Enteric Tube, Stoma or Indwelling Catheter, Enteric Contrast as designated per enteric contrast guidelines 1 Each 03/04/2024 03/05/2024 Active esomeprazole 40 mg delayed release oral capsule (20 sources) Proton Pump Inhibitor Start: 03-28-2021 End: 01-31-2023 take 1 capsule by mouth once daily before breakfast esomeprazole (NEXIUM) 40 mg capsule Take 1 capsule by mouth daily before breakfast. 90 capsule 3 01/31/2023 Active Comment on above: Take 1 capsule by mo [facility] daily before breakfast. ezetimibe 10 mg oral tablet (20 sources) Dietary Cholesterol Absorption Inhibitor Start: 06-27-2018 End: 11-14-2024 take 1 tablet by mouth once daily ezetimibe (ZETIA) 10 mg tablet Indications: Essential hypertension Take 1 tablet by mouth once daily. 90 tablet 3 11/14/2024 Active Comment on above: 10 mg. Take 1 tablet by jasmina once daily. iv contrast (will be provided with radiology test) (2 sources) Start: 03-04-2024 End: 03-05-2024 iv contrast (will be provided with radiology test) CT ABD/PEL -Inject, intravenously, once for 1 dose.No IV access, insert saline lock prior to the beginning of sedation, infusion, injection of imaging exam. Discontinue saline lock post exam. If Pt. has a central line or IVAD, may access for administration according to line specific nursing protocol. Once exam is complete flush line and de-access according to line specific nursing protocol in the CT contrast administration guidelines link. 1 Each 03/04/2024 03/05/2024 Active ketoconazole 20 mg/ml topical cream (20 sources) Azole Antifungal Start: 03-04-2024 ketoconazole (NIZORAL) 2 % cream Indications: Skin rash Apply 1 application to affected area two times a day. 30 g 03/04/2024 Active levothyroxine sodium 0.088 mg oral tablet (20 sources) l-Thyroxine Start: 10-28-2024 take 1 tablet by mouth once daily before breakfast levothyroxine (SYNTHROID) 88 mcg tablet Indications: Acquired hypothyroidism Take 1 tablet by mouth daily before breakfast. 90 tablet 10/28/2024 Active Start: 08-22-2024 take 1 tablet by jasmina th once daily before breakfast levothyroxine (SYNTHROID) 88 mcg tablet Indications: Acquired hypothyroidism Take 1 tablet by mouth daily before breakfast. 90 tablet 08/22/2024 Active Start: 04-11-2018 End: 08-22-2024 take 1 tablet by mouth once daily before breakfast levothyroxine (SYNTHROID) 75 mcg tablet Take 1 tablet by mouth daily before breakfast. 90 tablet 08/15/2024 08/22/2024 Discontinued Start: 08-11-2013 End: 04-11-2018 take 50 ug by mouth once daily Levothyroxine Discontin ued 50 MCG PO DAILY August 11, 2013 12:00am April 11, 2018 2:06pm Comment on above: Take 1 tablet by jasmina th daily before breakfast. metoprolol tartrate 50 mg oral tablet (20 sources) beta-Adrenergic Samantha Start: 07-28-2020 End: 06-08-2022 take 1 tablet by mouth three times daily metoprolol tartrate, short acting, (LOPRESSOR) 50 mg tablet Indications: Coronary artery disease of [place] heart with stable angina pectoris, unspecified vessel or lesion type Take 1 tablet by mouth three times daily. 270 tablet 3 06/09/2022 Active Start: 08-11-2013 End: 08-16-2022 take 50 mg by mouth twice daily Metoprolol Tartrate Discontinued 50 MG PO TWICE A DAY 180 May 15, 2020 9:07am May 03, 2021 1:31pm Comment on above: Take 1 tablet by jasmina th three times daily. Multivitamin preparation (8 sources) Start: 05-03-2021 take 1 tablet by mouth once daily Multivitamin Active 1 TABLET PO DAILY May 03, 2021 12:00am Start: 05-03-2021 take 1 tablet by jasmina th once daily Multivitamin Active 1 TABLET PO DAILY May 03, 2021 1:00am nystatin [id number] unt/ml topical cream (20 sources) Polyene Antifungal Start: 12-07-2023 apply 30 g rectal route twice daily nystatin (MYCOSTATIN) cream Indications: Rectal irritation Apply to affected area two times a day. Continue for 1 week after rash resolves 30 g 12/07/2023 Active ondansetron 4 mg oral tablet (9 sources) Serotonin-3 Receptor Antagonist Start: 08-12-2024 take 1 tablet by mouth every eight hours as needed for nausea and nausea ondansetron (ZOFRAN) 4 mg tablet Indications: Nausea Take 1 tablet by mouth every 8 hours as needed for nausea/vomiting. 15 tablet 08/12/2024 Active oseltamivir 75 mg oral capsule (2 sources) Neuraminidase Inhibitor Start: 08-12-2024 End: 08-17-2024 take 1 capsule by mouth twice daily oseltamivir (TAMIFLU) 75 mg capsule Indications: Acute cough , Body aches Take 1 capsule by mouth two times a day for 5 days. 10 capsule 08/12/2024 08/17/2024 Active trospium chloride 20 mg oral tablet (20 sources) Cholinergic Muscarinic Antagonist Start: 11-02-2022 End: 12-14-2024 take 1 tablet by mouth once daily trospium (SANCTURA) 20 mg tablet Indications: Mixed stress and urge urinary incontinence Take 1 tablet by mouth once daily. 30 tablet 4 11/14/2024 12/14/2024 Active Comment on above: Take 1 tablet by jasmina th once daily. Completed/Discontinued Medications Medication Drug Class(es) Dates Sig (Normalized) Sig (Original) aspirin 81 mg delayed release oral tablet (20 sources) Platelet Aggregation Inhibitor, Nonsteroidal Anti-inflammatory Drug Start: 08-14-2017 End: 08-16-2022 take 81 mg by mouth once daily Aspirin Discontinued 81 MG PO DAILY August 18, 2020 1:41pm August 16, 2022 2:07pm Start: 08-11-2013 End: 10-18-2017 take 81 mg by mouth once daily Aspirin Discontinued 81 MG PO DAILY@0800 August 11, 2013 12:00am October 18, 2017 12:46pm Start: 07-16-2012 take 1 tablet by jasmina th once daily at mealtime Aspirin 81 mg Tab Indications: CAD (coronary artery disease) Take 1 tablet by mouth once daily. Take with food. 1 tablet 0 07/16/2012 Active Comment on above: Take 1 tablet by jasmina once daily. Take with food. atorvastatin 20 mg oral tablet (5 sources) HMG-CoA Reductase Inhibitor Start: 2020 End: 2021 take 1 tablet by mouth once daily at bedtime atorvastatin (LIPITOR) 20 mg tablet Take 1 tablet by mouth daily at bedtime. 90 tablet 3 07/28/2020 12/08/2021 Discontinued (Discontinued by Patient) Comment on above: Take 1 tablet by jasmina daily at bedtime. augmented betamethasone 0.5 mg/ml topical cream (9 sources) Corticosteroid Start: 2021 End: 2022 betamethasone dipropionate, augmented (DIPROLENE) 0.05 % cream clopidogrel 75 mg oral tablet (20 sources) [id number] Platelet Inhibitor Start: 2013 End: 2018 take 75 mg by mouth once daily Clopidogrel Discontinued 75 MG PO DAILY 90 July 17, 2017 7:56am October 18, 2017 12:46pm dicyclomine hydrochloride 10 mg oral capsule (5 sources) Anticholinergic Start: 2020 End: 2021 take 1 capsule by mouth twice daily as needed dicyclomine (BENTYL) 10 mg capsule Indications: Lower abdominal pain , Irritable bowel syndrome, unspecified type Take 1 capsule by mouth twice daily as needed. 10 capsule 04/19/2021 12/08/2021 Discontinued (Discontinued by Patient) Comment on above: Take 1 capsule by mo [facility] twice daily as needed. docusate sodium 100 mg oral capsule (20 sources) Start: 2023 End: 2024 take 1 capsule by mouth twice daily as needed for constipation docusate sodium (COLACE) 100 mg capsule Indications: Acute pain of right shoulder , Injury of right shoulder, subsequent encounter Take 1 capsule by mouth two times a day as needed for constipation. 60 capsule 08/27/2023 11/14/2024 Discontinued Comment on above: Take 1 capsule by mo [facility] two times a day as needed for constipation. fluticasone propionate 0.05 mg/actuat metered dose nasal spray (5 sources) Corticosteroid Start: 2022 End: 08-10- 2023 take 2 spray(s) by mouth once daily fluticasone (FLONASE) 50 mcg/actuation nasal spray Use 2 Sprays in each nostril once daily. Rinse mouth after use. 1 Each 5 10/13/2022 01/18/2023 Discontinued Comment on above: Use 2 Sprays in each nostril once daily. Rinse mouth after use. ibuprofen 400 mg oral tablet (3 sources) Nonsteroidal Anti-inflammatory Drug Start: 2022 End: 2023 take 400 mg by mouth three times daily at mealtime for pain Ibuprofen Discontinued 400 MG PO .COMPLEX December 13, 2022 11:00pm July 05, 2023 10:28am 400 mg orally Three times daily for 3 days for pleuritic pain; take with food 24 hr isosorbide mononitrate 60 mg extended release oral tablet (20 sources) Nitrate Vasodilator Start: 2017 End: 2017 take 60 mg by mouth once daily Isosorbide Mononitrate Discontinued 60 MG PO daily January 27, 2018 11:00pm April 11, 2018 2:10pm Start: 08-11-2013 End: 01-28-2018 take 60 mg by mouth once daily Isosorbide Mononitrate Discontinued 60 MG PO DAILY January 28, 2018 8:37am January 28, 2018 4:21pm Dqxeffrs-Qye-Pbrz-Fa-Lutein (Centrum Silver Women) 8 mg iron-400 mcg-300 mcg tablet (5 sources) Start: 04-11-2018 End: 05-03-2021 take 1 tablet by mouth once daily Sblciohp-Evv-Tcgj-Fa-Lutein (Centrum Silver Women) 8 mg iron-400 mcg-300 mcg tablet Discontinued 1 TABLET PO DAILY April 10, 2018 11:00pm May 03, 2021 1:30pm Start: 04-11-2018 End: 05-03-2021 take 1 tablet by mouth once daily Wfkvsxiq-Uvg-Dsqv-Fa-Lutein (Centrum Edwina che[place] Women) 8 mg iron-400 mcg-300 mcg tablet Discontinued 1 TABLET PO DAILY April 11, 2018 12:00am May 03, 2021 2:30pm Ystdusll-Vcw-Aanw-Fa-Vit K-Lut (Centrum Silver Women) 8 mg iron-400 mcg-300 mcg tablet (3 sources) Start: 04-11-2018 End: 05-03-2021 take 1 tablet by mouth once daily Jspbjpea-Zjd-Wkhf-Fa-Vit K-Lut (Centrum Silver Women) 8 mg iron-400 mcg-300 mcg tablet Discontinued 1 TABLET PO DAILY April 10, 2018 11:00pm May 03, 2021 1:30pm Start: 04-11-2018 End: 05-03-2021 take 1 tablet by mouth once daily Fbbhqivr-Phh-Cgkn-Fa-Vit K-Lut (Centrum Silver Women) 8 mg iron-400 mcg-300 mcg tablet Discontinued 1 TABLET PO DAILY April 11, 2018 12:00am May 03, 2021 2:30pm nitroglycerin 0.4 mg sublingual tablet (20 sources) Nitrate Vasodilator Start: 08-11-2013 End: 08-16-2022 Nitroglycerin Discontinued 0.4 MG SL Q5M September 01, 2021 12:53pm August 16, 2022 2:07pm predniSONE 10 mg oral tablet (3 sources) Start: 03-17-2022 End: 03-26-2022 predniSONE (DELTASONE) 10 mg tablet Take 4 tabs daily for 3 days, then 2 tabs daily for 3 days, then 1 tab daily for 3 days with food. 21 tablet 03/17/2022 03/26/2022 Comment on above: Take 4 tabs daily fo r 3 days, then 2 tabs daily for 3 days, then 1 tab daily for 3 days with food. sertraline 50 mg oral tablet (1 source) Serotonin Reuptake Inhibitor Start: 11-14-2024 End: 11-14-2024 take 1 tablet by mouth once daily sertraline (ZOLOFT) 50 mg tablet Take 1 tablet by mouth once daily. 90 tablet 1 11/14/2024 11/14/2024 Discontinued ticagrelor 90 mg oral tablet (20 sources) Start: 05-13-2020 End: 11-14-2024 take 1 tablet by mouth once daily ticagrelor (BRILINTA) 90 mg tablet Take 90 mg by mouth once daily. 05/13/2020 11/14/2024 Discontinued Start: 05-23-2019 End: 10-24-2024 take 1 tablet by mouth twice daily ticagrelor (BRILINTA) 90 mg tablet Take 1 tablet by mouth two times a day. Prescribed by cardiology 08/15/2024 10/24/2024 Discontinued (Discontinued by another Health Care Provider) Comment on above: Take 1 tablet by jasmina th twice daily. Take 1 tablet by jasmina th two times a day. Problems Active Problems Problem Classification Problem Date Documented Da te Episodic/Chronic Acquired foot deformities (5 sources) Hammer toe; Translations: [Other hammer toe(s) (acquired), right foot] Onset: 5 10-21-2024 Chronic Acquired foot deformities (5 sources) Bunion; Translations: [Bunion of right foot] Onset: 5 10-21-2024 Episodic Adjustment disorders (2 sources) Grief finding; Translations: [Adjustment disorder with depressed mood] Chronic Anxiety disorders (20 sources) Generalized anxiety disorder; Translations: [Generalized anxiety disorder] 07-28-2019 Chronic Chronic kidney disease (20 sources) Chronic kidney disease stage 3; Translations: [CKD (chronic kidney disease) stage 3, GFR 30-59 ml/min] Onset: 9 06-27-2018 Chronic Coronary atherosclerosis and other heart disease (20 sources) Coronary atherosclerosis; Translations: [Atherosclerotic heart disease of [place] coronary artery without angina pectoris] Onset: 0 10-12-2020 Chronic Coronary atherosclerosis and other heart disease (4 sources) Presence of coronary angioplasty implant and graft; Translations: [Percutaneous transluminal coronary angioplasty status] Onset: 9 01-02-2023 Episodic Disorders of lipid metabolism (20 sources) Hyperlipidemia; Translations: [Hyperlipidemia, unspecified] Onset: 3 09-17-2012 Chronic Diverticulosis and diverticulitis (20 sources) Diverticulosis of colon; Translations: [Diverticulosis of large intestine without perforation or abscess without bleeding] Onset: 9 06-16-2008 Chronic E Codes: Fall (8 sources) Fall; Translations: [Unspecified fall, initial encounter] 12-07-2021 Episodic E Codes: Natural/environment (1 source) Tick bite; Translations: [Bitten or stung by nonvenomous insect and other nonvenomous arthropods, initial encounter] 10-08-2023 Episodic Esophageal disorders (2 sources) Gastroesophageal reflux disease without esophagitis; Translations: [Gastro-esophageal reflux disease without esophagitis] Onset: 5 Chronic Essential hypertension (20 sources) Essential hypertension; Translations: [Essential (primary) hypertension] Onset: 5 07-19-2015 Chronic Fracture of upper limb (9 sources) Closed fracture of head of radius; Translations: [Displaced fracture of head of right radius, initial encounter for closed fracture] Episodic Gastrointestinal hemorrhage (12 sources) Gastrointestinal hemorrhage; Translations: [Gastrointestinal hemorrhage, unspecified] 07-12-2019 Episodic Genitourinary symptoms and ill-defined conditions (1 source) Mixed urinary incontinence; Translations: [Mixed incontinence] 11-14-2024 Chronic Genitourinary symptoms and ill-defined conditions (20 sources) Incomplete emptying of bladder; Translations: [Retention of urine, unspecified] Onset: 5 05-11-2005 Episodic Hemorrhoids (8 sources) Bleeding external hemorrhoids; Translations: [Residual hemorrhoidal skin tags] 06-29-2021 Episodic Hypertension with complications and secondary hypertension (20 sources) 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; Translations: [Hypertensive chronic kidney disease with stage 1 through stage 4 chronic kidney disease, or unspecified chronic kidney disease] Onset: 2 10-26-2021 Chronic Mycoses (2 sources) Onychomycosis; Translations: [Tinea unguium] Onset: 5 10-24-2024 Episodic Nausea and vomiting (2 sources) Nausea; Translations: [Nausea] 08-12-2024 Episodic Noninfectious gastroenteritis (3 sources) Colitis; Translations: [Noninfective gastroenteritis and colitis, unspecified] 01-18-2023 Episodic Nonspecific chest pain (9 sources) Chest pain; Translations: [Chest pain, unspecified] Onset: 5 07-07-2017 Episodic Nutritional deficiencies (1 source) Vitamin D deficiency, unspecified; Translations: [Vitamin D deficiency] Onset: 5 Chronic Occlusion or stenosis of precerebral arteries (20 sources) Bilateral stenosis of carotid arteries; Translations: [Occlusion and stenosis of bilateral carotid arteries] Onset: 9 04-10-2019 Chronic Osteoarthritis (20 sources) Degenerative joint disease involving multiple joints; Translations: [Polyosteoarthritis, unspecified] 08-02-2005 Chronic Other and ill-defined heart disease (20 sources) Diastolic dysfunction; Translations: [Other ill-defined heart diseases] Onset: 0 07-28-2019 Chronic Other and ill-defined heart disease (1 source) Other ill-defined heart diseases; Translations: [Grade II diastolic dysfunction] Onset: 0 Chronic Other circulatory disease (3 sources) Thready pulse; Translations: [Other specified symptoms and signs involving the circulatory and respiratory systems] 01-02-2023 Episodic Other circulatory disease (3 sources) Other specified symptoms and signs involving the circulatory and respiratory systems; Translations: [Other symptoms involving cardiovascular system] Onset: 5 01-02-2023 Episodic Other circulatory disease (1 source) Abnormal peripheral pulse; Translations: [Other specified symptoms and signs involving the circulatory and respiratory systems] 10-24-2024 Episodic Other connective tissue disease (1 source) Pain in right arm; Translations: [Pain in right arm] Episodic Other connective tissue disease (1 source) Cramp; Translations: [Cramp and spasm] Episodic Other connective tissue disease (2 sources) Nocturnal muscle cramp; Translations: [Cramp and spasm] 03-07-2023 Episodic Other connective tissue disease (3 sources) Pain in left lower limb; Translations: [Pain in left leg] 06-24-2024 Episodic Other connective tissue disease (2 sources) Cramp in lower limb; Translations: [Cramp and spasm] 06-24-2024 Episodic Other connective tissue disease (1 source) Pain in both feet; Translations: [Pain in right foot] 10-24-2024 Episodic Other connective tissue disease (1 source) Pain of toe of left foot; Translations: [Pain in left toe(s)] 10-24-2024 Episodic Other connective tissue disease (1 source) Pain of toe of right foot; Translations: [Pain in right toe(s)] 10-24-2024 Episodic Other connective tissue disease (1 source) Pain in right foot; Translations: [Bilateral foot pain] Onset: 5 Episodic Other connective tissue disease (1 source) Pain in left foot; Translations: [Bilateral foot pain] Onset: 5 Episodic Other connective tissue disease (1 source) Pain in left toe(s); Translations: [Pain in toe of left foot] Onset: 5 Episodic Other connective tissue disease (1 source) Pain in right toe(s); Translations: [Pain in toe of right foot] Onset: 5 Episodic Other diseases of kidney and ureters [...] digestive system] 10-12-2020 Episodic Other gastrointestinal disorders (20 sources) Diarrhea; Translations: [Diarrhea, unspecified] Onset: 9 06-16-2008 Episodic Other gastrointestinal disorders (1 source) Acute constipation; Translations: [Constipation, unspecified] 03-04-2024 Episodic Other gastrointestinal disorders (2 sources) Constipation, unspecified; Translations: [Constipation, unspecified constipation type] Onset: Episodic Other hereditary and degenerative nervous system conditions (1 source) Restless legs; Translations: [Restless legs syndrome] Chronic Other injuries and conditions due to external causes (1 source) Injury of right shoulder; Translations: [Unspecified injury of right shoulder and upper arm, subsequent encounter] 08-27-2023 Episodic Other liver diseases (2 sources) Liver cyst; Translations: [Other specified diseases of liver] 01-18-2023 Chronic Other lower respiratory disease (20 sources) Nodule of lung; Translations: [Solitary pulmonary nodule] Onset: 3 01-18-2023 Episodic Other lower respiratory disease (2 sources) Multiple nodules of lung; Translations: [Other nonspecific abnormal finding of lung field] 01-18-2023 Episodic Other lower respiratory disease (2 sources) Cough; Translations: [Acute cough] 08-12-2024 Episodic Other lower respiratory disease (1 source) Chronic cough; Translations: [Chronic cough] 11-14-2024 Episodic Other lower respiratory disease (1 source) Solitary pulmonary nodule; Translations: [Pulmonary nodule] Onset: 5 Episodic Other nervous system disorders (20 sources) Carpal tunnel syndrome of right wrist; Translations: [Carpal tunnel syndrome, right upper limb] Onset: 3 08-22-2012 Chronic Other nervous system disorders (4 sources) Paresthesia of upper limb; Translations: [Anesthesia of skin] Episodic Other nervous system disorders (1 source) Paresthesia; Translations: [Paresthesia of skin] Episodic Other non-traumatic joint disorders (1 source) Shoulder pain; Translations: [Pain in right shoulder] Episodic Other non-traumatic joint disorders (4 sources) Pain in right shoulder; Translations: [Pain in joint, shoulder region] 07-31-2023 Episodic Other screening for suspected conditions (not mental disorders or infectious disease) (3 sources) Patient encounter status; Translations: [Encounter for screening for osteoporosis] 10-29-2023 Episodic Other skin disorders (1 source) Eruption; Translations: [Rash and other nonspecific skin eruption] 03-04-2024 Episodic Other upper respiratory disease (1 source) Nasal sinus problem; Translations: [Other specified disorders of nose and nasal sinuses] Episodic Otitis media and related conditions (1 source) Dysfunction of eustachian tube; Translations: [Other specified disorders of Eustachian tube, unspecified ear] Episodic Peripheral and visceral atherosclerosis (20 sources) Peripheral vascular disease; Translations: [Peripheral vascular disease, unspecified] Onset: 0 07-28-2019 Chronic Residual codes; unclassified (20 sources) Sleep apnea; Translations: [Sleep apnea, unspecified] Onset: 2 06-06-2021 Chronic Residual codes; unclassified (2 sources) Viral syndrome; Translations: [Other general symptoms and signs] 07-24-2023 Episodic Residual codes; unclassified (3 sources) Generalized aches and pains; Translations: [Pain, unspecified] 08-12-2024 Episodic Spondylosis; intervertebral disc disorders; other back problems (1 source) Cervical spondylosis; Translations: [Spondylosis without myelopathy or radiculopathy, cervical region] Chronic Thyroid disorders (20 sources) Hypothyroidism; Translations: [Hypothyroidism, unspecified] Onset: 3 09-17-2012 Chronic Past or Other Problems Problem Classification Problem Date Documented Da te Episodic/Chronic Abdominal hernia (20 sources) Hiatal hernia; Translations: [Diaphragmatic hernia without obstruction or gangrene] Onset: 07-25-2022 07-25-2022 Episodic Abdominal pain (4 sources) Left lower quadrant pain; Translations: [Left lower quadrant pain] Onset: 03-04-2024 03-04-2024 Episodic Anal and rectal conditions (2 sources) Other specified diseases of anus and rectum; Translations: [Other specified disorders of rectum and anus] Onset: 12-07-2023 12-07-2023 Episodic Malaise and fatigue (1 source) Weakness; Translations: [Weakness] Onset: 12-19-2023 Episodic Other connective tissue disease (20 sources) Muscle pain; Translations: [Myalgia and myositis, unspecified] Onset: 02-28-2010 02-28-2010 Episodic Other connective tissue disease (20 sources) Bursitis of left shoulder; Translations: [Bursitis of left shoulder] Onset: 08-22-2012 08-22-2012 Episodic Other connective tissue disease (2 sources) Cramp and spasm; Translations: [Cramp of limb] Onset: 06-24-2024 03-07-2023 Episodic Other connective tissue disease (1 source) Pain in left leg; Translations: [Left leg pain] Onset: 08-15-2024 Episodic Other connective tissue disease (1 source) Pain in right arm; Translations: [Bilateral arm pain] Onset: 08-15-2024 Episodic Other connective tissue disease (1 source) Pain in left arm; Translations: [Bilateral arm pain] Onset: 08-15-2024 Episodic Other ear and sense organ disorders [...] 02-19-2015 Episodic Other gastrointestinal disorders (20 sources) Occult blood in stools; Translations: [Other fecal abnormalities] Onset: 07-28-2019 07-28-2019 Episodic Other gastrointestinal disorders (20 sources) Incontinence of feces; Translations: [Full incontinence of feces] Onset: 03-20-2023 01-30-2023 Episodic Other gastrointestinal disorders (1 source) Diarrhea, unspecified; Translations: [Diarrhea, unspecified type] Onset: 06-16-2008 Episodic Other skin disorders (1 source) Rash and other nonspecific skin eruption; Translations: [Skin rash] Onset: 03-04-2024 Episodic Residual codes; unclassified (1 source) Pain, unspecified; Translations: [Body aches] Onset: 08-15-2024 Episodic Skin and subcutaneous tissue infections (20 sources) Disorder of nail; Translations: [Cellulitis of unspecified toe] Onset: 02-20-2012 02-20-2012 Episodic Spondylosis; intervertebral disc disorders; other back problems (20 sources) Neck pain; Translations: [Cervicalgia] Onset: 07-24-2006 07-24-2006 Episodic Results Test Name Value Interpretation Reference Range Facility CT CHEST WO IVCONon 11-18-[address] CHEST WO IVCON * * *Final Report* * * DATE OF EXAM: Nov 17 2024 9:25AM [facility] 0541 - CT CHEST WO IVCON / PROCEDURE REASON: Pulmonary nodule * * * * Physician Interpretation * * * * EXAMINATION: CHEST CT WITHOUT CONTRAST CLINICAL HISTORY: Hx pulmonary nodules Pulmonary nodule Technique: Spiral CT acquisition of the chest from the thoracic inlet to the upper abdomen without contrast. MQ: [id number] CT Radiation dose: Integrated Dose-length product (DLP) for this visit = 194 mGy*cm CT Dose Reduction Employed: Automated exposure control(AEC) and iterative recon Comparison: 01/30/2023 and 10/23/2022 RESULT: Lung parenchyma, airways, and pleural: No consolidation. Central airways are patent. Stable scarring of the lung apices. Stable pulmonary nodules. Examples include (image numbers refer to series 6): 4 mm nodule medial right upper lobe image 57. 5 mm nodule posterior/medial left upper lobe image 61. 5 mm nodule lateral right upper lobe image 70. 3 mm nodule subpleural posterolateral left lower lobe image 100. No new or enlarging pulmonary nodule. Lower neck, lymph nodes, and mediastinum: The imaged thyroid gland is normal. No lymphadenopathy in the supraclavicular, axillary, mediastinal, or hilar regions. Small hiatal hernia. Heart, pericardium, and thoracic vessels: No pericardial effusion. Atherosclerotic calcification of the thoracic aorta and coronary arteries. Aberrant right subclavian artery (normal variant). Bones and soft tissues: Degenerative changes of the thoracic spine with dextroscoliosis. Coarse calcification in the right breast. Upper abdomen: No acute abnormality in the imaged upper abdomen. Stable hepatic cyst. High Lead Yarder (topogram) images: No additional findings. IMPRESSION: No CT evidence of acute abnormality. _ Stable pulmonary nodules. No new or enlarging nodule. Hiatal hernia. _ Sheet Metal Fabricator: PSCB Transcribe Date/Time: Nov 23 2024 1:33P Dictated by : CARLOS TSAI MD This examination was interpreted and the report reviewed and electronically signed by: CARLOS TSAI MD on Nov 23 2024 1:59PM EST [id number] Normal [facility] CNOVon 11-14-2024 CNOV Office Visit (INTMWS ) -------- LISETTE ENAMORADO ([id number]) 1940 F Date Time Provider Department 11/14/24 10:00 AM LISA PETER INTMWS During your visit today, we recorded the following information about you: Pulse Respiration Blood pressure Weight 73/minute 16/minute 138/66 68.4 kg Lisa Peter MD 11/14/2024 4:22 PM Signed Reason for Visit Cough and other concerns HPI Paola Enamorado is a 84-year-old female with a history of hypercholesterolemia, hypothyroidism, and hypertension, presenting for evaluation of a cough and recent episodes of diarrhea. Paola reports a worsening cough over the past 4 days, more pronounced at night than during the day. She describes the cough as dry but notes that she occasionally expectorates mucus. She denies frequent throat clearing, rhinorrhea, or facial pain, but mentions occasional sneezing, which she attributes to potential allergies. She also reports a little tickle on the left side of her throat. She denies a history of asthma and is not currently taking Nexium (esomeprazole), which she had previously been prescribed. Additionally, Paola reports episodes of diarrhea that began on Sunday and continued through . She notes that the diarrhea started after taking her usual medications following breakfast. She took Imodium yesterday, which she believes may have stopped the diarrhea, as she has not had any bowel movements today but feels a shade of discomfort. She is concerned that her medications may be causing the diarrhea and is unsure if she should continue taking them. Paola is currently taking a variety of medications, including vitamin D, colestipol, Norvasc, Zetia, levothyroxine, metoprolol, and aspirin. She has stopped taking Brilinta due to bleeding issues and is unsure if she should continue taking Zetia. She is also taking calcium and Prevagen but plans to discontinue these during an upcoming trip. She is preparing for a month-long trip and is concerned about managing her medications and potential health issues while traveling. Social History Tobacco Use Smoking status: Never Smokeless tobacco: Never Vaping Use Vaping status: Never Used Substance Use Topics Alcohol use: Yes Comment: rare glass of wine Drug use: No Past medical history, appointments, medications, allergies reviewed. Pertinent Lab/Diagnostic Studies are reviewed and discussed today Current Outpatient Medications: levothyroxine (SYNTHROID) 88 mcg tablet Cholecalciferol, Vitamin D3, (VITAMIN D-3) 50 mcg (2,000 unit) cap amLODIPine (NORVASC) 5 mg tablet metoprolol tartrate, short acting, (LOPRESSOR) 50 mg tablet Aspirin 81 mg Tab trospium (SANCTURA) 20 mg tablet ezetimibe (ZETIA) 10 mg tablet colestipol (COLESTID) 1 gram tablet Health Maintenance Depression Screening RSV Vaccine(1 - 1-dose 75+ series) Advance Directive Discussion@ Review Of Systems Ears/Nose/Mouth/Throat: (+) hearing difficulty, (+) sneezing, (+) throat tickle, (-) runny nose, (-) facial pain Respiratory: (+) productive cough Gastrointestinal: (+) abdominal discomfort, (-) diarrhea Skin: (+) cutaneous bleeding Psychiatric: (+) anxiety Physical Exam BP 138/66 Pulse 73 Resp 16 Wt 68.4 kg (150 lb 12.8 oz) SpO2 99% BMI 27.58 kg/m? GENERAL: NAD, alert and oriented. SKIN: Unremarkable, no rash or skin lesions. HEAD: Normocephalic. EYES: PERRLA, EOMI, conjunctiva clear. EARS: External ears normal, canals clear, TM's normal. NOSE/SINUSES: Nares normal. Septum midline. OROPHARYNX: Lips, mucosa, and tongue normal, good dentition. No oral lesions noted. NECK: Supple, no lymphadenopathy, normal thyroid, no carotid bruits. LUNGS: Clear to auscultation bilaterally, no wheezes/rhonchi/rales. HEART: Regular rate and rhythm, no murmurs. No ectopy. EXTREMITIES: Normal, no deformities, no skin discoloration, no edema. NEURO: Awake, alert and oriented x3, cranial nerves II-XII grossly intact, normal gait, no involuntary motions. Assessment and Plan 1. 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 Continue trospium as prescribed. 2. Essential hypertension (I10) Controlled with amlodipine and metoprolol. Continue current antihypertensive regimen. 3. Pulmonary nodule (R91.1) Incidental finding; requires further evaluation. - Ordered CT chest for further evaluation of the pulmonary nodule. - Referral to pulmonology for further management. 4. Chronic cough (R05.3) Intermittent, productive of mucus, worse at night. Lungs clear on auscultation; no signs of acute infection or asthma. Possible etiologies include allergies or GERD. - Resume esomeprazole to address potential GERD-related cough. - Referral to pulmonology for further evaluation. 5. Diarrhea, unspecified type (R19.7) Recent onset, possibly related to medication or anxiety. (more content not included)... [facility] LISETTE ENAMORADO ([id number]) 1940 F Date Time Provider Department 11/13/24 LISA PETER During your visit today, we recorded the following information about you: Abby Tsai RN 11/13/2024 11:25 AM Signed Patient calls and is upset because after she takes her morning pills she gets episode of diarrhea. Patient is unclear which pill she takes in the morning. Patient states that she thinks it is the pink pill that is causing the issue. Patient states that she is going out of country and she needs to get this issue solved. Asked patient which pills she takes in the morning. Patient states that Dr. Peter should know which pill. Advised patient that office knows which pills are ordered however we don't know when she takes each pill. Advised patient that she needs to come into office to discuss this. Appointment scheduled tomorrow morning with Dr. Peter. Patient states that she is going to bring pill container in that she sets up. Advised patient that she needs to know which pill is which so we know what she takes in the morning. Patient voiced understanding. Abby Tsai RN Allergies As of Date: 11/13/2024 Noted Allergy Reaction DITROPAN (OXYBUTYNIN CHLORIDE) 02/24/2019 8 - GI Upset LISINOPRIL 06/30/2011 3 - Cough Date Reviewed: 10/28/2024 Reviewed by: Whit Vinson MA - Fully Assessed Reason for Visit: Patient Update [1234] Prescriptions as of 11/13/2024 - ticagrelor (BRILINTA) 90 mg tablet Take 90 mg by mouth once daily. - levothyroxine (SYNTHROID) 88 mcg tablet Take 1 tablet by mouth daily before breakfast. - colestipol (COLESTID) 1 gram tablet Take 1 tablet by mouth two times a day. - Cholecalciferol, Vitamin D3, (VITAMIN D-3) 50 mcg (2,000 unit) cap Take 1 capsule by mouth once daily. - docusate sodium (COLACE) 100 mg capsule Take 1 capsule by mouth two times a day as needed for constipation. - ezetimibe (ZETIA) 10 mg tablet Take 1 tablet by mouth once daily. - trospium (SANCTURA) 20 mg tablet Take 1 tablet by mouth once daily. - amLODIPine (NORVASC) 5 mg tablet Take 1 tablet by mouth once daily. - metoprolol tartrate, short acting, (LOPRESSOR) 50 mg tablet Take 1 tablet by mouth three times daily. - Aspirin 81 mg Tab Take 1 tablet by mouth once daily. Take with food. Problem List As Of Date 11/13/2024 Noted Resolved INCOMPLETE BLADDER EMPTYING [R33.9] 05/11/2005 Essential hypertension [I10] History of IBS [Z87.19] GENERALIZED ANXIETY DIS [F41.1] GENERAL OSTEOARTHROSIS [M15.9] RETENTION OF URINE UNSPEC [R33.9] 08/22/2005 CERVICALGIA [M54.2] 07/24/2006 DIARRHEA NOS [R19.7] 06/16/2008 DIVERTICULOSIS OF COLON W/O BLEED [K57.30] 06/16/2008 Bilateral carotid artery stenosis [I65.23] 06/10/2009 Coronary artery disease involving [place]*01/20/2010 Unspecified Myalgia and Myositis [BEY6993] 02/28/2010 Sleep apnea [G47.30] 10/18/2011 Onychia and [...] with chronic kidney*10/26/2021 Hiatal hernia [K44.9] 07/25/2022 Lung nodule [R91.1] 02/01/2023 Incontinence of feces [R15.9] 03/20/2023 Encounter Status:Closed by ABBY TSAI on 11/13/24 [facility] CNOVon 10-28-2024 CNOV Office Visit (FAMPWS ) -------- LISETTE ENAMORADO ([id number]) 1940 F Date Time Provider Department 10/28/24 8:40 [facility] During your visit today, we recorded the following information about you: Pulse Respiration Blood pressure Weight 76/minute 16/minute 121/68 68.5 kg Eric Lockett PA-C 10/28/2024 9:47 AM Signed - Stop taking Synthroid (levothyroxine) 75 mcg and start Synthroid 88 mcg once daily; 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 - Continue metoprolol (Lopressor) twice daily for heart - Continue amlodipine (Norvasc) 5 mg once daily for blood pressure. - Continue trospium (Sanctura) as directed for bladder control. - Take colestipol 1 g twice daily for cholesterol. - Refill and take ezetimibe (Zetia) for cholesterol; contact Dr. Zarate?s (cardiology) office if you need a refill. - Continue aspirin 81 mg daily for heart protection. - Take vitamin D3 daily with a fatty meal to help absorption. - Use docusate sodium (Colace) as needed for stool softening. - Keep nitroglycerin on hand and use it only as needed for chest discomfort. - Take acetaminophen (Tylenol) as needed for pain; stop ibuprofen to protect your kidneys. - You are not currently taking Brilinta (ticagrelor) due to bleeding; discuss this medication with cardiology at your next visit. - Ask your pharmacist for a copy of your updated prescription labels and for travel-friendly medication bags if you?re planning a trip. - Use the printed medication list provided today for accurate dosing and timing; keep meds in their original labeled containers or clearly labeled bags. - Have repeat thyroid labs drawn in 6-8 weeks before your appointment with Dr. Peter to check the new Synthroid dose. - Keep your scheduled appointment in December with Dr. Peter, and work with her office to schedule one or two additional visits for consistent care. - If you have any questions about your medications or instructions, call our office. Eric Lockett PA-C 10/28/2024 10:06 AM Signed Recording using [employer] software for draft documentation of the visit was discussed with the patient/authorized outside industrial sales representative; all questions welcomed and answered. Patient/authorized outside industrial sales representative agreed to proceed 10/28/2024 Medication Review: - Confusion regarding medication lists; discrepancies noted between different lists. - Uses a pill box but acknowledges not all medications are included. - Uncertain about the necessity of certain medications, including Nexium- Not taking, not having any acid refulx symptoms - Stopped taking Brilinta due to bleeding issues, reportedly advised by cardiology-Dr. Zarate - Reports dry mouth at night, questioning if calcium supplementation is the cause. - Recent episode of loose bowel movements, treated with Imodium. - Experiences leg cramps, previously used Flexeril but not currently taking it. - Concerns about managing medications during an upcoming month-long vacation. Hypothyroidism: - Currently taking Synthroid 75 mcg, with a recent increase to 88 mcg by DOUG Frey. - Has not started the new dose yet. Hyperlipidemia: - Taking Zetia and colestipol. - Out of Zetia and unsure about the necessity of continuing it. Prescribed by cardiology-Dr. Zarate HTN: - Taking metoprolol and Norvasc (amlodipine) for blood pressure management. Current Outpatient Medications on File Prior to Visit Medication Sig ticagrelor (BRILINTA) 90 mg tablet Take 90 mg by mouth once daily. Cholecalciferol, Vitamin D3, (VITAMIN D-3) 50 mcg (2,000 unit) cap Take 1 capsule by mouth once daily. docusate sodium (COLACE) 100 mg capsule Take 1 capsule by mouth two times a day as needed for constipation. ezetimibe (ZETIA) 10 mg tablet Take 1 tablet by mouth once daily. trospium (SANCTURA) 20 mg tablet Take 1 tablet by mouth once daily. amLODIPine (NORVASC) 5 mg tablet Take 1 tablet by mouth once daily. metoprolol tartrate, short acting, (LOPRESSOR) 50 mg tablet Take 1 tablet by mouth three times daily. Aspirin 81 mg Tab Take 1 tablet by mouth once daily. Take with food. No current facility-administered medications on file prior to visit. PAST MEDICAL HISTORY Diagnosis Date Coronary artery disease Diarrhea Generalized anxiety disorder Generalized osteoarthrosis, unspecified site lumbar and c-spine Hematochezia 03/31/2021 Incomplete bladder emptying 05/11/2005 Irritable bowel syndrome Pure hypercholesterolemia Thyroid disease Unspecified essential hypertension Allergies: Ditropan [Oxybutyni* GI Upset Lisinopril Cough Ears/Nose/Mouth/Throat: (+) xerostomia Gastrointestinal: (-) heartburn, (+) diarrhea -resolved. Musculoskeletal: (+) left leg cramps Hematologic/Lymphatic: (+) easy bruising, (+) bleeding, stopped Brilinta BP 121/68 Pulse 76 Resp 16 Wt 68.5 kg (151 lb) BMI 27.62 (more content not included)... Normal [facility] CNOVon 10-24-2024 CNOV Office Visit (PODIWS ) -------- LISETTE ENAMORADO ([id number]) 1940 F Date Time Provider Department 10/24/24 9:30 AM ROB RAI PODIWS During your visit today, we recorded the following information about you: Peggy House LPN 10/25/2024 10:48 AM Signed AMB ROOMING INTAKE FLOWSHEET DATA Pain Pain Level: 2 Pain Location: Other: See Comment (left foot worse than right) Description: Sharp Frequency: Continuous Intervention/Comfort measure: Reposition, Relaxation Patient presents with: Left Foot - Hammer Toe, Pain, nail deformity , New, Bunion, Swelling Right Foot - Hammer Toe, Pain, nail deformity , New, Bunion, Swelling PeggyLUIS M Mcnair Matthew 10/24/2024 10:17 AM Signed Powerstep Original Full length. Can purchase at [employer] and boots,shoes and more here in [place], [employer] in [place] or [place]. Also can find in [place] in [facility]. Powersteps can also be purchased online, starting around $45.00 If you have a metatarsal or dancer pad for your feet apply the pad directly to the insole so you can interchange between your shoes. Find a shoe with a removable insole and take this out and replace with your powerstep insole. Always bring powersteps with you when shopping for shoes so that you can make sure that everything fits well together Peggy House LPN 10/25/2024 10:[address] Rai, Lisette was provided with powerstep gel inserts, size 7, and instructed/educated in its application, wear, and care. All questions were answered, and patient was able to demonstrate competence with the necessary skills to utilize the above equipment. LUIS M Suresh Matthew 10/25/2024 10:48 AM Signed Consultation requested by Dr. Peter for an opinion regarding painful toneails. My final recommendations will be communicated back to the requesting physician by way of shared Medical record or letter to requesting physician via US mail. Subjective Paola is an 84-year-old female presenting for evaluation of painful toenails, bunions, and hammer toes. Toenail Pain: - Reports bleeding and pain in toenails, with one nail split and bleeding. - Denies previous nail removal. - Concerns about foot condition due to upcoming vacation involving extensive walking. Bunions and Hammer Toes: - Reports swelling in the pads of the toes. - Family history of hammer toes. Musculoskeletal: (+) toe pain, (-) foot pain on balls of feet Skin: (+) bleeding toenails, (+) thick toenails, (+) nail splitting, (+) toenail pain, (+) toe swelling PAST MEDICAL HISTORY Diagnosis Date Coronary artery disease Diarrhea Generalized anxiety disorder Generalized osteoarthrosis, unspecified site lumbar and c-spine Hematochezia 03/31/2021 Incomplete bladder emptying 05/11/2005 Irritable bowel syndrome Pure hypercholesterolemia Thyroid disease Unspecified essential hypertension Current Outpatient Medications Medication Sig Dispense Refill cyclobenzaprine HCl (CYCLOBENZAPRINE ORAL) Take 10 mg by mouth three times a day as needed. levothyroxine (SYNTHROID) 88 mcg tablet Take 1 tablet by mouth daily before breakfast. 90 tablet 0 Cholecalciferol, Vitamin D3, (VITAMIN D-3) 50 mcg (2,000 unit) cap Take 1 capsule by mouth once daily. 90 capsule 1 docusate sodium (COLACE) 100 mg capsule Take 1 capsule by mouth two times a day as needed for constipation. 60 capsule 0 acetaminophen (TYLENOL EXTRA STRENGTH) 500 mg tablet Take 1 tablet by mouth every 6 hours as needed for pain. Take this or the hydrocodone/acetaminophe n every 6 hours as needed for pain 30 tablet 1 ezetimibe (ZETIA) 10 mg tablet Take 1 tablet by mouth once daily. 90 tablet 3 esomeprazole (NEXIUM) 40 mg capsule Take 1 capsule by mouth daily before breakfast. 90 capsule 3 trospium (SANCTURA) 20 mg tablet Take 1 tablet by mouth once daily. 30 tablet 4 amLODIPine (NORVASC) 5 mg tablet Take 1 tablet by mouth once daily. 14 tablet 0 metoprolol tartrate, short acting, (LOPRESSOR) 50 mg tablet Take 1 tablet by mouth three times daily. 270 tablet 3 Aspirin 81 mg Tab Take 1 tablet by mouth once daily. Take with food. 1 tablet 0 ondansetron (ZOFRAN) 4 mg tablet Take 1 tablet by mouth every 8 hours as needed for nausea/vomiting. (Patient not taking: Reported on 10/24/2024) 15 tablet 0 ketoconazole (NIZORAL) 2 % cream Apply 1 application to affected area two times a day. (Patient not taking: Reported on 10/24/2024) 30 g 0 nystatin (MYCOSTATIN) cream Apply to affected area two times a day. Continue for 1 week after rash resolves (Patient not taking: Reported on 10/24/2024) 30 g 0 No current facility-administered medications for this visit. Family History Problem Relation Age of Onset Heart Mother CABG x3 Hypertension Mother Breast Cancer Mother Heart Father other (lung problems) Father Objective There (more content not included)... Normal [facility] XR FOOT 3V AP/LAT/OBL BILon 10-24-2024 XR FOOT 3V AP/LAT/OBL DIONNE * * *Final Report* * * DATE OF EXAM: Oct 24 2024 8:41AM WRX [id number] - XR FOOT 3V AP/LAT/OBL DIONNE / PROCEDURE REASON: multiple diagnoses * * * * Physician Interpretation * * * * EXAMINATION / TECHNIQUE: XR FOOT 3V AP/LAT/OBL DIONNE HISTORY: Chronic diffuse pain in bilateral feet. Bilateral foot pain Bilateral foot pain COMPARISON: None. RESULT: No acute fracture or dislocation in either foot. Bilateral hallux valgus and bilateral second digit hammertoe deformities. Joint spaces are maintained bilaterally. No osseous erosion in either foot. Calcaneal enthesophytes bilaterally. IMPRESSION: Degenerative changes as described. [employer] Metal Fabricator: SUJATHA Transcribe Date/Time: Oct 28 2024 8:11P Dictated by : ATUL TORRES MD This examination was interpreted and the report reviewed and electronically signed by: ATUL TORRES MD on Oct 28 2024 8:12PM EST [id number] Normal [facility] CNOVon 10-13-2024 CNOV Office Visit (INTMWS ) -------- LISETTE ENAMORADO ([id number]) 1940 F Date Time Provider Department 10/13/24 4:00 PM LISA PETER INTMWS During your visit today, we recorded the following information about you: Pulse Respiration Blood pressure Weight 75/minute 16/minute 159/67 68.9 kg Lisa Peter MD 10/21/2024 6:40 PM Signed Reason for Visit Travel advice MALIKA Guevara is a 84-year-old female, with a history of hammer toes, bunions, diastolic dysfunction, and CAD, presenting for evaluation of foot pain and to discuss the need for a transport chair for an upcoming trip to [place]. Paola reports chronic foot pain secondary to hammer toes and bunions, which exacerbates with ambulation, particularly over long distances. She can ambulate short distances without pain, but experiences significant discomfort when walking longer distances, such as at train stations or airports. She recalls a recent visit to the [facility], where she was unable to complete the uphill return walk and required a cart for assistance. She estimates her walking tolerance to be less than 0.2 miles before needing to rest. Paola is planning a month-long trip to [place] with her son, which will involve extensive walking. Her son has suggested obtaining a transport chair to assist with mobility during the trip. She has contacted [employer], which requires a physician's prescription for the chair. Paola is seeking medical evaluation to determine the necessity of the chair and to obtain the required documentation. She has not seen a high school math tutor in several years and is concerned about the potential for foot infections, citing a neighbor's experience with a foot sore that led to a toe amputation. She denies current bleeding from her feet but notes a history of minor bleeding. Additionally, Paola reports persistent fatigue and poor sleep quality. Social History Tobacco Use Smoking status: Never Smokeless tobacco: Never Vaping Use Vaping status: Never Used Substance Use Topics Alcohol use: Yes Comment: rare glass of wine Drug use: No Past medical history, appointments, medications, allergies reviewed. Pertinent Lab/Diagnostic Studies are reviewed and discussed today Current Outpatient Medications: levothyroxine (SYNTHROID) 88 mcg tablet ticagrelor (BRILINTA) 90 mg tablet ondansetron (ZOFRAN) 4 mg tablet Cholecalciferol, Vitamin D3, (VITAMIN D-3) 50 mcg (2,000 unit) cap colestipol (COLESTID) 1 gram tablet colestipol (COLESTID) 1 gram tablet ketoconazole (NIZORAL) 2 % cream nystatin (MYCOSTATIN) cream docusate sodium (COLACE) 100 mg capsule acetaminophen (TYLENOL EXTRA STRENGTH) 500 mg tablet ezetimibe (ZETIA) 10 mg tablet esomeprazole (NEXIUM) 40 mg capsule amLODIPine (NORVASC) 5 mg tablet metoprolol tartrate, short acting, (LOPRESSOR) 50 mg tablet Aspirin 81 mg Tab trospium (SANCTURA) 20 mg tablet Health Maintenance Depression Screening RSV Vaccine(1 - 1-dose 75+ series) Advance Directive Discussion@ Review Of Systems Constitutional: (+) fatigue, (+) sleep disturbance Musculoskeletal: (+) foot pain with prolonged walking Physical Exam BP 159/67 Pulse 75 Resp 16 Wt 68.9 kg (152 lb) BMI 27.80 kg/m? GENERAL: NAD, alert and oriented. SKIN: unremarkable, no rash or skin lesions. HEAD: normocephalic. LUNGS: Clear to auscultation bilaterally, no wheezes/rhonchi/rales. HEART: Regular rate and rhythm, no murmurs. No ectopy. EXTREMITIES: Hammer toes on second and third toes bilaterally, bunions present. Erythema noted on second and third toes bilaterally. No edema. NEURO: Awake, alert and oriented x3, cranial nerves II-XII grossly intact, normal gait, no involuntary motions. Assessment and Plan 1. 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 - Recommended consultation with a high school math tutor for custom orthotic inserts to alleviate pressure and improve comfort during ambulation. - Initiated prescription for a [employer] [place] Transport Chair, lightweight (20 lbs), to assist with mobility during extended travel in [place]. 2. Grade II diastolic dysfunction (I51.89) Chronic condition, contributing to decreased exercise tolerance and fatigue. 3. Coronary artery disease involving [place] coronary artery of [place] heart without angina pectoris (I25.10) Stable, no current angina pectoris reported. Voice recognition software was used to compose this office note. Please excuse any unintended typographical errors. Recording using [employer] software for draft documentation of the visit was discussed with the patient/authorized outside industrial sales representative; all questions welcomed and answered. Patient/authorized outside industrial sales representative agreed to proceed Chitr (more content not included)... [facility] LISETTE ENAMORADO ([id number]) 1940 F Date Time Provider Department 10/13/24 LISA PETER During your visit today, we recorded the following information about you: Lori Aldana RN 10/13/2024 6:09 PM Signed Pts daughter in law Starr called in and states she doesn't want the provider to send in the order for the transfer chair. I let her know that provider had already put in the order for the chair, but I don't think it had been sent yet. She states if there is any change in treatment for her that her insurance won't cover her for travel. She reports they are still going to get the chair but on their own. She asked if the provider could document that she didn't have any change in condition if it's ok for her to travel. I let her know I would have provider get back to her. ANASTASIIA Wang Chitra, MD 10/14/2024 5:34 PM Signed I dont think I can change the history I wrote about the bunions and the hammer toes. Regards, Lori Velazquez MD, RN 10/15/2024 8:40 AM Signed Pts daughter in law Starr called and is notified of providers message. She voices understanding, but is asking if provider could put that the Pt already had the bunions and the hammer toes, and her health is stable. She wanted to know if provider could cancel the request for the transport chair. I told her she could, but it would still show I the system that she had put it in. She states when they try to get travel insurance on her mother in law they will look to see if there were any changes in her treatment, and they would consider that a change. She said they just wanted the travel chair as a precaution. She wanted to know providers opinion if she thinks the Pt is able to travel or not. She said if the provider doesn't think she is ok to travel she would like a call back, so they can make other plans. Please call and advise. ANASTASIIA Wang Chitra, MD 10/15/2024 5:08 PM Signed We dont usually give recommendations like that. If there is a reason that we dont want someone to travel we usually let them know. For instance they have an impending surgery and are unstable etc. I dont see a reason as such for patient I can put in there that there is no change in her condition. I can cancel the script. It will still show a trail but it should be ok Regards, Mariana Haines MD, MA 10/15/2024 6:36 PM Signed Daughter in law notified, states no longer needed and they mat still go ahead with the plans for travel chair but will let office know. Allergies As of Date: 10/13/2024 Noted Allergy Reaction DITROPAN (OXYBUTYNIN CHLORIDE) 02/24/2019 8 - GI Upset LISINOPRIL 06/30/2011 3 - Cough Date Reviewed: 10/13/2024 Reviewed by: Whit Vinson MA - Fully Assessed Reason for Visit: Patient Update [1234] Orders [681] Prescriptions as of 10/15/2024 - levothyroxine (SYNTHROID) 88 mcg tablet Take 1 tablet by mouth daily before breakfast. - ticagrelor (BRILINTA) 90 mg tablet Take 1 tablet by mouth two times a day. Prescribed by cardiology - ondansetron (ZOFRAN) 4 mg tablet Take 1 tablet by mouth every 8 hours as needed for nausea/vomiting. - Cholecalciferol, Vitamin D3, (VITAMIN D-3) 50 mcg (2,000 unit) cap Take 1 capsule by mouth once daily. - colestipol (COLESTID) 1 gram tablet Take 1 tablet by mouth two times a day. Dr. Zarate - colestipol (COLESTID) 1 gram tablet Take 1 tablet by mouth two times a day. - ketoconazole (NIZORAL) 2 % cream Apply 1 application to affected area two times a day. - nystatin (MYCOSTATIN) cream Apply to affected area two times a day. Continue for 1 week after rash resolves - docusate sodium (COLACE) 100 mg capsule Take 1 capsule by mouth two times a day as needed for constipation. - acetaminophen (TYLENOL EXTRA STRENGTH) 500 mg tablet Take 1 tablet by mouth every 6 hours as needed for pain. Take this or the hydrocodone/acetaminophe n every 6 hours as needed for pain - ezetimibe (ZETIA) 10 mg tablet Take 1 tablet by mouth once daily. - esomeprazole (NEXIUM) 40 mg capsule Take 1 capsule by mouth daily before breakfast. - trospium (SANCTURA) 20 mg tablet Take 1 tablet by mouth once daily. - amLODIPine (NORVASC) 5 mg tablet Take 1 tablet by mouth once daily. - metoprolol tartrate, short acting, (LOPRESSOR) 50 mg tablet Take 1 tablet by mouth three times daily. - Aspirin 81 mg Tab Take 1 tablet by mouth once daily. Take with food. Problem List As Of Date 10/13/2024 Noted Resolved INCOMPLETE BLADDER EMPTYING [R33.9] 05/11/2005 Essential hypertension [I10] History of IBS [Z87.19] GENERALIZED ANXIETY DIS [F41.1] GENERAL OSTEOARTHROSIS [M15.9] RETENTION OF URINE UNSPEC [R33.9] 08/22/2005 CERVICALGIA [M54.2] 07/24/2006 DIARRHEA NOS [R19.7] 06/16/2008 DIVERTICULOSIS OF COLON W/O BLEED [K57.30] 06/16/2008 Bilateral (more content not included)... Normal [facility] 25(OH)D3 SerPl-mCncon 2024 25-hydroxyvitamin D3 [Mass/Vol] 81.1 ng/mL High 31.0-80.0 [facility] Comment on above: Order Comment: Speci men Type: BLOOD SPECIMENOrdering Facility: [facility] Address: [address] [place] [address] Result Comment: Clas sification of 25 OH Vitamin D status: Deficiency/Insufficiency: < or = 30 ng/ml. Sufficiency/Optimal Levels: 31-80 ng/mL Toxicity: > 100 ng/mL. Test performed by chemiluminescent immunoassay. Performed By: #### 1 989-3 ####[facility] LABCLIA [id number] [place] [address] [place] Basic metabolic 2000 panelon 08-15-2024 Anion gap [Moles/Vol] 12 mmol/L Normal 8-15 [facility] Comment on above: Order Comment: Speci men Type: BLOOD SPECIMENOrdering Facility: [facility] Address: [address] [place], [place] [address] Performed By: #### 2 1-2, 3015-3 ####[facility]ORY[facility] [id number] [place] [address] [place]#### 86970-8 ####[facility] LABCLIA [id number] [place] [address] [place]#### 81348-6 ####[facility]ORYCLIA [id number] [place] [address] [place] [facility] [id number] [place] [address] [place] Calcium [Mass/Vol] 9.4 mg/dL Normal 8.5-10.2 [facility] Comment on above: Order Comment: Speci men Type: BLOOD SPECIMENOrdering Facility: [facility] Address: [facility] [place] [address] Performed By: #### 2 4320-07, 3015-3 ####[facility] LABORATORYCLIA [id number] [place] [address] [place]#### 82123-9 ####[facility] LABCLIA [id number] [place] [address] [place]#### 85828-0 ####[facility]ORY[facility] [id number] [place] [address] [place] [facility] [id number] [place] [address] [place] Chloride [Moles/Vol] 105 mmol/L Normal 98-107 [facility] Comment on above: Order Comment: Speci men Type: BLOOD SPECIMENOrdering Facility: [facility] Address: [address] [id number] Performed By: #### 2 432-2, 3015-3 ####[facility]ORYCLIA [id number] [place] [address] [place]#### 35673-1 ####[facility] LABCLIA [id number] [place] [address] [place]#### 28070-4 ####[facility]ORYCLIA [id number] [place] [address] [place] [facility] [id number] [place] [address] [place] CO2 [Moles/Vol] 23 mmol/L Normal 22-30 [facility] Comment on above: Order Comment: Speci men Type: BLOOD SPECIMENOrdering Facility: [facility] Address: [address] [place] [address] Performed By: #### 2 4321-2, 6-3 ####[facility] LABORATORYCLIA [id number] [place] [address] [place]#### 62399-5 ####[facility] LABCLIA [id number] [place] [address] [place]#### 92525-5 ####[facility] LABORATORYCLIA [id number] [place] [address] [place] [facility] [id number] [place] [address] [place] Creatinine [Mass/Vol] 1.27 mg/dL High 0.58-0.96 [facility] Comment on above: Order Comment: Speci men Type: BLOOD SPECIMENOrdering Facility: [facility] Address: [address] [place] [address] Performed By: #### 2 4321-2, 3016-3 ####[facility]ORYCLIA [id number] [place] [address] [place]#### 91695-0 ####[facility] LABCLIA [id number] [address] [address]#### 10320-2 ####[facility] LABORATORYCLIA [id number] [address] [id number] [place] [address] [place] Creatinine and Glomerular filtration rate.predicted panel (S/P/Bld) 42 mL/min/1.73m??? Low >=60 [facility] Comment on above: Order Comment: Speci men Type: BLOOD SPECIMENOrdering Facility: [facility] Address: [address] [place] [address] Result Comment: Ashley mated Glomerular Filtration Rate (eGFR) is calculated using the 2020 CKD-EPI creatinine equation. This equation utilizes serum creatinine, sex, and age as parameters. The creatinine assay has traceable calibration to isotope dilution-mass spectrometry. Refer to KDIGO guidelines for clinical interpretation. In patients with unstable renal function, e.g. those with acute kidney injury, the eGFR may not accurately reflect actual GFR. Performed By: #### 2 4321-2, 3016-3 ####[facility] LABORATORYCLIA [id number] [place] [address] [place]#### 22097-1 ####[facility] LABCLIA [id number] [address] [place]#### 72992-6 ####[facility] LABORATORYCLIA [id number] [address] [id number] [place] [address] [place] Glucose [Mass/Vol] 95 mg/dL Normal 74-99 [facility] Comment on above: Order Comment: Speci men Type: BLOOD SPECIMENOrdering Facility: [facility] Address: [address] [place] [address] Result Comment: The [place] Diabetes Association (ADA) provides guidance for cutoff values for fasting glucose and random glucose. The ADA defines fasting as no caloric intake for at least 8 hours. Fasting plasma glucose results between 100 to 125 mg/dL indicate increased risk for diabetes (prediabetes). Fasting plasma glucose results greater than or equal to 126 mg/dL meet the criteria for diagnosis of diabetes. In the absence of unequivocal hyperglycemia, results should be confirmed by repeat testing. In a patient with classic symptoms of hyperglycemia or hyperglycemic crisis, random plasma glucose results greater than or equal to 200 mg/dL meet the criteria for diagnosis of diabetes. Reference: Standards of Medical Care in Diabetes 2016, [place] Diabetes Association. Diabetes Care. 2016.39(Suppl 1). Performed By: #### 2 1-2, 3015-3 ####[facility] LABORATORYCLIA [id number] [place] [address] [place]#### 52585-9 ####[facility] LABCLIA [id number] [place] [address] [place]#### 03957-8 ####[facility] LABORATORYCLIA [id number] [address] STATES [facility] [id number] [place] [address] [place] Potassium [Moles/Vol] 4.6 mmol/L Normal 3.7-5.1 [facility] Comment on above: Order Comment: Speci men Type: BLOOD SPECIMENOrdering Facility: [facility] Address: [address] [place] [address] Performed By: #### 2 4320-2, 3 ####[facility] LABORATORYCLIA [id number] [place] [address] [place]#### 98408-4 ####[facility] LABCLIA [id number] [place] [address] [place]#### 52391-1 ####[facility]ORYCLIA [id number] [address] [id number] [place] [address] [place] Sodium [Moles/Vol] 140 mmol/L Normal 136-144 [facility] Comment on above: Order Comment: Speci men Type: BLOOD SPECIMENOrdering Facility: [facility] Address: [address] [place] [address] Performed By: #### 2 4321-2, 3016-3 ####[facility]ORYCLIA [id number] [place] [address] [place]#### 15184-2 ####[facility] LABCLIA [id number] [place] [address] [place]#### 11032-8 ####[facility]ORYCLIA [id number] [address] STATES [place] [id number] [place] [address] [place] Urea nitrogen [Mass/Vol] 20 mg/dL Normal 7-21 [facility] Comment on above: Order Comment: Speci men Type: BLOOD SPECIMENOrdering Facility: [facility] Address: [address] [place] [address] Performed By: #### 2 4321-2, 3016-3 ####[facility]ORYCLIA [id number] [place] [address] [place]#### 27551-1 ####[facility] LABCLIA [id number] [place] [address] [place]#### 93392-6 ####[facility]ORYCLIA [id number] [address] STATES [facility] [id number] [place] [address] [place] CBC panel Auto (Bld)on 08-15 Erythrocyte distribution width (RBC) [Ratio] 13.1 % 11.5 - 15.0 % [facility] Hematocrit (Bld) [Volume fraction] 40.3 % 36.0 - 46.0 % [facility] Hemoglobin (Bld) [Mass/Vol] 13.6 g/dL 11.5 - 15.5 g/dL [facility] Interpretation and review of laboratory results Abnormal [facility] MCH (RBC) [Entitic mass] 28.4 pg 26.0 - 34.0 pg [facility] MCHC (RBC) [Mass/Vol] 33.7 g/dL 30.5 - 36.0 g/dL [facility] MCV (RBC) [Entitic vol] 84.1 fL 80.0 - 100.0 fL [facility] Nucleated RBC (Bld) [#/Vol] NINF [facility] Platelet mean volume (Bld) [Entitic vol] 10.7 fL 9.0 - 12.7 fL [facility] Platelets (Bld) [#/Vol] 159 10*3/uL [facility] RBC (Bld) [#/Vol] 4.79 10*6/uL 3.90 - 5.2 0 m/uL [facility] WBC (Bld) [#/Vol] 3.02 10*3/uL Low [facility] Erythrocyte distribution width (RBC) [Ratio] 13.1 % Normal 11.5-15.0 [facility] Comment on above: Order Comment: Speci men Type: BLOOD SPECIMENOrdering Facility: [facility] Address: [address] [place] [address] Performed By: #### 4 537-7 ####[facility] LABCLIA [id number] [address] [place]#### 74357-5 ####[facility] [id number] [address] STATES OF [facility] Hematocrit (Bld) [Volume fraction] 40.3 % Normal 36.0-46.0 [facility] Comment on above: Order Comment: Speci men Type: BLOOD SPECIMENOrdering Facility: [facility] Address: [address] [place] [address] Performed By: #### 4 537-7 ####[facility] LABCLIA [id number] [place] [address] [place]#### 16898-5 ####[facility] MILLWNCL[facility] [id number] [place] [address] [place] Hemoglobin (Bld) [Mass/Vol] 13.6 g/dL Normal 11.5-15.5 [facility] Comment on above: Order Comment: Speci men Type: BLOOD SPECIMENOrdering Facility: [facility] Address: [address] [place] [address] Performed By: #### 4 537-7 ####[facility] LABCLIA [id number] [place] [address] [place]#### 63258-8 ####[facility]AST[facility]CL[facility] [id number] [place] [address] [place] MCH (RBC) [Entitic mass] 28.4 pg Normal 26.0-34.0 [facility] Comment on above: Order Comment: Speci men Type: BLOOD SPECIMENOrdering Facility: [facility] Address: [address] [place] [address] Performed By: #### 4 537-7 ####[facility] LABCLIA [id number] [place] [address] [place]#### 52055-2 ####[facility] MILLWNCLIA [id number] [place] [address] [place] MCHC (RBC) [Mass/Vol] 33.7 g/dL Normal 30.5-36.0 [facility] Comment on above: Order Comment: Speci men Type: BLOOD SPECIMENOrdering Facility: [facility] Address: [address] [place] [address] Performed By: #### 4 537-7 ####[facility] LABCLIA [id number] [place] [address] [place]#### 37085-9 ####[facility] [id number] [place] [address] [place] MCV (RBC) [Entitic vol] 84.1 fL Normal 80.0-100.0 [facility] Comment on above: Order Comment: Speci men Type: BLOOD SPECIMENOrdering Facility: [facility] Address: [address] [place] [address] Performed By: #### 4 537-7 ####[facility] LABIA [id number] [place] [address] [place]#### 75733-8 ####[facility] [id number] [place] [address] [place] Nucleated RBC (Bld) [#/Vol] 10*3/uL Normal <0.01 [facility] Comment on above: Order Comment: Speci men Type: BLOOD SPECIMENOrdering Facility: [facility] Address: [address] [place] [address] Performed By: #### 4 537-7 ####[facility] LABCLIA [id number] [address] [place]#### 65412-6 ####[facility]PIT[facility] [id number] [place] [address] [place] Platelet mean volume (Bld) [Entitic vol] 10.7 fL Normal 9.0-12.7 [facility] Comment on above: Order Comment: Speci men Type: BLOOD SPECIMENOrdering Facility: [facility] Address: [address] [place] [address] Performed By: #### 4 537-7 ####[facility] LABCLIA [id number] [place] [address] [place]#### 47809-7 ####[facility]ASTNCLIA [id number] [place] [address] [place] Platelets (Bld) [#/Vol] 159 10*3/uL Normal 150-400 [facility] Comment on above: Order Comment: Speci men Type: BLOOD SPECIMENOrdering Facility: [facility] Address: [address] [place] [address] Performed By: #### 4 537-7 ####[facility] LABCLIA [id number] [place] [address] [place]#### 50794-1 ####[facility] [id number] [place] [address] [place] RBC (Bld) [#/Vol] 4.79 10*6/uL Normal 3.90-5.20 [facility] Comment on above: Order Comment: Speci men Type: BLOOD SPECIMENOrdering Facility: [facility] Address: [address] [place] [address] Performed By: #### 4 537-7 ####[facility] LABCLIA [id number] [place] [address] [place]#### 58286-0 ####[facility]ASTNCLIA [id number] [place] [address] [place] WBC (Bld) [#/Vol] 3.02 10*3/uL Low 3.70-11.00 [facility] Comment on above: Order Comment: Speci men Type: BLOOD SPECIMENOrdering Facility: [facility] Address: [address] [place] [address] Performed By: #### 4 537-7 ####[facility] LABCLIA [id number] [place] [id number] [place]#### 79888-2 ####[facility] PIPPA PENA [id number] [place] [id number] [place] [address] OF [facility] CNOVon 08-15-2024 CNOV Office Visit (INTMWS ) -------- LISETTE ENAMORADO ([id number]) 1940 F Date Time Provider Department 08/15/24 9:20 AM SHANTE YEBOAH INTMWS During your visit today, we recorded the following information about you: Pulse Respiration Blood pressure Weight 68/minute 14/minute 114/72 66.9 kg Shante Yeboah, EVENTS INTERN.EXHIBIT SPECIALIST 08/15/2024 10:13 AM Signed CC: Patient presents with: Follow Up HPI Lisette Toussaint Willi is a 84 year old female who presents today for above. She was seen on 08/12 for body aches, cough and runny nose x 1 day. She was started on Tamiflu until testing resulted however she was negative for COVID, influenza and RSV. Today patient reports she is feeling much better and all symptoms have completely resolved. Denies any new symptoms. She needs a refill on levothyroxine. Taking daily on an empty stomach. Last TSH was almost two years ago. She is overdue for routine follow-up, has only been seen in the past couple years for acute visits. Review of Systems Constitutional: Negative for chills, diaphoresis, fatigue and fever. HENT: Negative for congestion, postnasal drip, rhinorrhea, sinus pressure, sinus pain, sneezing and sore throat. Respiratory: Negative for cough, shortness of breath and wheezing. Cardiovascular: Negative for chest pain, palpitations and leg swelling. PAST MEDICAL HISTORY Diagnosis Date Coronary artery [...] EGD W/O BRSH SPEC VARICIES INJ 08/08/2021 ESOPHAGOGASTRODUODENOSCO PY TRANSORAL DIAGNOSTIC 08/09/2015 EGD ESOPHAGOGASTRODUODENOSCO PY TRANSORAL DIAGNOSTIC 08/11/2019 EGD LEFT HEART CATH,PERCUTANEOUS 09/26/2012 Cardiac cath, L heart [facility] - chest pain STENT PLACEMENT 03/22, 09/21 medicated cardiac stent TONSILLECTOMY HX TONSILLECTOMY PRIMARY/SECONDARY Tonsillectomy ALLERGIES Ditropan [Oxybutynin Chloride] and Lisinopril MEDICATIONS ondansetron (ZOFRAN) 4 mg tablet Take 1 tablet by mouth every 8 hours as needed for nausea/vomiting. Cholecalciferol, Vitamin D3, (VITAMIN D-3) 50 mcg (2,000 unit) cap Take 1 capsule by mouth once daily. colestipol (COLESTID) 1 gram tablet Take 1 tablet by mouth two times a day. docusate sodium (COLACE) 100 mg capsule Take 1 capsule by mouth two times a day as needed for constipation. acetaminophen (TYLENOL EXTRA STRENGTH) 500 mg tablet Take 1 tablet by mouth every 6 hours as needed for pain. Take this or the hydrocodone/acetaminophe n every 6 hours as needed for pain ezetimibe (ZETIA) 10 mg tablet Take 1 tablet by mouth once daily. levothyroxine (SYNTHROID) 75 mcg tablet Take 1 tablet by mouth daily before breakfast. esomeprazole (NEXIUM) 40 mg capsule Take 1 capsule by mouth daily before breakfast. amLODIPine (NORVASC) 5 mg tablet Take 1 tablet by mouth once daily. metoprolol tartrate, short acting, (LOPRESSOR) 50 mg tablet Take 1 tablet by mouth three times daily. Aspirin 81 mg Tab Take 1 tablet by mouth once daily. Take with food. ticagrelor (BRILINTA) 90 mg tablet Take 1 tablet by mouth one time only for 1 dose. oseltamivir (TAMIFLU) 75 mg capsule Take 1 capsule by mouth two times a day for 5 days. colestipol (COLESTID) 1 gram tablet Take 1 tablet by mouth two times a day. Dr. Zarate ketoconazole (NIZORAL) 2 % cream Apply 1 application to affected area two times a day. nystatin (MYCOSTATIN) cream Apply to affected area two times a day. Continue for 1 week after rash resolves trospium (SANCTURA) 20 mg tablet Take 1 tablet by mouth once daily. FAMILY HISTORY Problem Relation Age of Onset Heart Mother CABG x3 Hypertension Mother Breast Cancer Mother Heart Father other (lung problems) Father Social History Tobacco Use Smoking status: Never Smokeless tobacco: Never Vaping Use Vaping status: Never Used Substance Use Topics Alcohol use: Yes Comment: rare glass of wine Drug use: No BP 114/72 Pulse 68 Resp 14 Wt 66.9 kg (147 lb 7.8 oz) SpO2 96% BMI 26.98 kg/m? Physical Exam Vitals reviewed. Constitutional: Appearance: Normal appearance. Cardiovascular: Rate and Rhythm: Normal rate and regula (more content not included)... Normal [facility] ESR Westergren method (Bld) [Velocity]on 08-15-2024 ESR (Bld) [Velocity] 15 mm/h Normal 0-20 [facility] Comment on above: Order Comment: Speci men Type: BLOOD SPECIMENOrdering Facility: [facility] Address: [address] [place] [address] Performed By: #### 4 537-7 ####[facility] LABCLIA [id number] [place] [address] [place]#### 03181-5 ####[facility] [id number] [place] [address] [place] Lipid 1996 panelon 5 Cholesterol [Mass/Vol] 181 mg/dL Normal <200 [facility] Comment on above: Order Comment: Speci men Type: BLOOD SPECIMENOrdering Facility: [facility] Address: [address] [place] [address] Result Comment: <200 mg/dL, Desirable 200-239 mg/dL, Borderline high >239 mg/dL, High Performed By: #### 2 4321-2, 3016-3 ####[facility]ORYCLIA [id number] [place] [address] [place]#### 38976-6 ####[facility] LABCLIA [id number] [address] OF [place]#### 34358-6 ####[facility]OR[facility]ORYCLIA [id number] [address] STATES [facility] [id number] [place] [address] [place] Cholesterol in HDL [Mass/Vol] 31 mg/dL Low >39 [facility] Comment on above: Order Comment: Speci men Type: BLOOD SPECIMENOrdering Facility: [facility] Address: [address] [place] [address] Result Comment: 40-5 9 mg/dL, Acceptable >59 mg/dL, High: Negative risk factor for coronary heart disease <40 mg/dL, Low: Positive risk factor for coronary heart disease Performed By: #### 2 4321-2, 6-3 ####[facility]ORYCLIA [id number] [place] [address] [place]#### 14015-1 ####[facility] LABCLIA [id number] [address] [place]#### 03920-0 ####[facility]ORYCLIA [id number] [place] [address] [place] [facility] [id number] [address] Cholesterol in LDL [Mass/Vol] 107 mg/dL High <100 [facility] Comment on above: Order Comment: Brown sanchez Type: BLOOD SPECIMENOrdering Facility: [facility] Address: [address] [place] [address] Result Comment: <100 mg/dL, Optimal 100-129 mg/dL, Near optimal/above optimal 130-159 mg/dL, Borderline high 160-189 mg/dL, High >189 mg/dL, Very high Secondary prevention optimal LDL Cholesterol levels are recommended to be < 70 mg/dL Performed By: #### 2 4321-2, 6-3 ####[facility] LABORATORYCLIA [id number] [address] [place]#### 45398-0 ####[facility] LABCLIA [id number] [address] [place]#### 66090-6 ####[facility] LABORATORYCLIA [id number] [address] STATES OF [facility] [id number] [address] Cholesterol in LDL/Cholesterol in HDL [Mass ratio] 3.45 {ratio} High <2.54 [facility] Comment on above: Order Comment: Amadai daniel Type: BLOOD SPECIMENOrdering Facility: [facility] Address: [address] [place] [address] Result Comment: Refe rence: 1. National Cholesterol Education Program ATP III Guideline At-A-Glance Quick Desk Reference: National Heart, Lung, and Blood [place]. National Institutes of Health. 2001: NIH Publication No. 01-3305. 2. An International Atherosclerosis Society position paper: global recommendations for the management of dyslipidemia: executive summary, Atherosclerosis. 2014: 232(2):410-413. Performed By: #### 2 4321-2, 6-3 ####[facility] LABORATORYCLIA [id number] [place] [address] [place]#### 68412-9 ####[facility] LABCLIA [id number] [place] [address] [place]#### 69411-0 ####[facility]ORATORYCLIA [id number] [place] [address] [place] [facility] [id number] [place] [address] [place] Cholesterol in VLDL [Mass/Vol] 43 mg/dL High <30 [facility] Comment on above: Order Comment: Speci men Type: BLOOD SPECIMENOrdering Facility: [facility] Address: [address] [place] [address] Performed By: #### 2 4321-2, 6-3 ####[facility]ORYCLIA [id number] [place] [address] [place]#### 47193-6 ####[facility] LABCLIA [id number] [place] [address] [place]#### 26936-3 ####[facility] LABORATORYCLIA [id number] [address] STATES OF [facility] [id number] [place] [address] [place] Cholesterol non HDL [Mass/Vol] 150 mg/dL High <130 [facility] Comment on above: Order Comment: Speci men Type: BLOOD SPECIMENOrdering Facility: [facility] Address: [address] [place] [address] Result Comment: <130 mg/dL, Optimal 130-159 mg/dL, Near optimal/above optimal 160-189 mg/dL, Borderline high 190-219 mg/dL, High >219 mg/dL, Very high Secondary prevention optimal non HDL Cholesterol levels are recommended to be <100 mg/dL Performed By: #### 2 4321-2, 6-3 ####[facility]ATORYCLIA [id number] [place] [address] [place]#### 61978-6 ####[facility] LABCLIA [id number] [place] [address] [place]#### 17305-7 ####[facility]ATORYCLIA [id number] [place] [address] [place] [facility] [id number] [place] [address] [place] Cholesterol.total/Chol esterol in HDL [Mass ratio] 5.84 {ratio} High <5.10 [facility] Comment on above: Order Comment: Speci men Type: BLOOD SPECIMENOrdering Facility: [facility] Address: [address] [place] [address] Performed By: #### 2 4321-2, 6-3 ####[facility]ORYCLIA [id number] [place] [address] [place]#### 81667-9 ####[facility] LABCLIA [id number] [place] [address] [place]#### 71934-7 ####[facility] LABORATORYCLIA [id number] [place] [address] [place] [facility] [id number] [place] [address] [place] FASTING TIME 12 hrs Normal [facility] Comment on above: Order Comment: Speci men Type: BLOOD SPECIMENOrdering Facility: [facility] Address: [address] [place] [address] Performed By: #### 2 4321-2, 3016-3 ####[facility]ORYCLIA [id number] [place] [address] [place]#### 28185-1 ####[facility] LABCLIA [id number] [place] [address] [place]#### 28773-8 ####[facility]ORATORYCLIA [id number] [address] STATES OF [facility] [id number] [place] [address] [place] Triglyceride [Mass/Vol] 213 mg/dL High <150 [facility] Comment on above: Order Comment: Speci men Type: BLOOD SPECIMENOrdering Facility: [facility] Address: [address] [place] [address] Result Comment: <150 mg/dL, Normal 150-199 mg/dL, Borderline high 200-499 mg/dL, High >499 mg/dL, Very high Performed By: #### 2 4321-2, 3016-3 ####[facility]ORYCLIA [id number] [place] [address] [place]#### 36288-1 ####[facility] LABCLIA [id number] [place] [address] [place]#### 59850-4 ####[facility]ORYCLIA [id number] [address] STATES OF [facility] [id number] [place] [address] [place] Rheumatoid fact SerPl-aCncon 08-15-2024 Rheumatoid factor Qn [IU]/mL Normal <16 [facility] Comment on above: Order Comment: Speci men Type: BLOOD SPECIMENOrdering Facility: [facility] Address: [address] [place] [address] Performed By: #### 2 4321-2, 3016-3 ####[facility]ORYCLIA [id number] [place] [address] [place]#### 27727-4 ####[facility] LABCLIA [id number] [place] [address] [place]#### 66170-2 ####[facility] LABORATORYCLIA [id number] [address] [id number] [place] [address] [place] TSH SerPl-aCncon 08-15-2024 TSH Qn 8.050 m[IU]/L High 0.270-4.200 [facility] Comment on above: Order Comment: Speci men Type: BLOOD SPECIMENOrdering Facility: [facility] Address: [address] [place] [address] Performed By: #### 2 4321-2, 3016-3 ####[facility] LABORATORYCLIA [id number] [place] [address] [place]#### 55541-1 ####[facility] LABCLIA [id number] [address] [place]#### 83439-2 ####[facility] LABORATORYCLIA [id number] [address] STATES [facility] [id number] [address] [place] CNOVon 08-12-2024 CNOV Office Visit (JOSE EDUARDOPWS ) -------- LISETTE ENAMORADO ([id number]) 1940 F Date Time Provider Department 08/12/24 11:20 AM ERIC LOCKETT During your visit today, we recorded the following information about you: Eric Lockett PA-C 08/12/2024 6:28 PM Addendum 08/12/2024 No chief complaint on file. SUBJECTIVE: This is a 84 year old that is here today for Complaint(s) of body aches x early yesterday morning. Notes chills. Has had rhinorrhea and occasional cough associated. Has not measured her temperature, but has chills. Describes pain across her upper back and into her shoulders, in her back, and notes leg pain DIONNE. Overall having body aches. Has tried tylenol/motrin. No calf edema. No recent travel. Has had chronic leg pain, and a recent [place] leg that was negative for DVT. Denies chest pain, SOB, nausea, vomiting, abdominal pain, dysuria, numbness/tingling, paralysis, dizziness. Has not taken her BP or other medications today. She has had intermittent, CORONEL,denies any CORONEL currently. Denies worst CORONEL of life. Has urinary frequency, but this is a chronic issue for patient. No dysuria, hematuria. No lfu shot this year. PAST MEDICAL HISTORY Diagnosis Date Coronary artery disease Diarrhea Generalized anxiety disorder Generalized osteoarthrosis, unspecified site lumbar and c-spine Hematochezia 03/31/2021 Incomplete bladder emptying 05/11/2005 Irritable bowel syndrome Pure hypercholesterolemia Thyroid disease Unspecified essential hypertension ALLERGIES Ditropan [Oxybutynin Chloride] and Lisinopril MEDICATIONS Current Outpatient Medications Medication Sig Cholecalciferol, Vitamin D3, (VITAMIN D-3) 50 mcg (2,000 unit) cap Take 1 capsule by mouth once daily. colestipol (COLESTID) 1 gram tablet Take 1 tablet by mouth two times a day. Dr. Zarate (Patient not taking: Reported on 06/24/2024) colestipol (COLESTID) 1 gram tablet Take 1 tablet by mouth two times a day. ketoconazole (NIZORAL) 2 % cream Apply 1 application to affected area two times a day. nystatin (MYCOSTATIN) cream Apply to affected area two times a day. Continue for 1 week after rash resolves docusate sodium (COLACE) 100 mg capsule Take 1 capsule by mouth two times a day as needed for constipation. acetaminophen (TYLENOL EXTRA STRENGTH) 500 mg tablet Take 1 tablet by mouth every 6 hours as needed for pain. Take this or the hydrocodone/acetaminophe n every 6 hours as needed for pain ticagrelor (BRILINTA) 90 mg tablet Take 1 tablet by mouth two times a day. (Patient not taking: Reported on 12/07/2023) ezetimibe (ZETIA) 10 mg tablet Take 1 tablet by mouth once daily. levothyroxine (SYNTHROID) 75 mcg tablet Take 1 tablet by mouth daily before breakfast. esomeprazole (NEXIUM) 40 mg capsule Take 1 capsule by mouth daily before breakfast. trospium (SANCTURA) 20 mg tablet Take 1 tablet by mouth once daily. amLODIPine (NORVASC) 5 mg tablet Take 1 tablet by mouth once daily. metoprolol tartrate, short acting, (LOPRESSOR) 50 mg tablet Take 1 tablet by mouth three times daily. Aspirin 81 mg Tab Take 1 tablet by mouth once daily. Take with food. No current facility-administered medications for this visit. SOCIAL HISTORY Social History Tobacco Use Smoking status: Never Smokeless tobacco: Never Vaping Use Vaping status: Never Used Substance Use Topics Alcohol use: Yes Comment: rare glass of wine Drug use: No REVIEW OF SYSTEMS See HPI OBJECTIVE: There were no vitals taken for this visit. APPEARANCE alert, in no acute distress, well-hydrated, well nourished. Became nauseous and slightly lightheaded and vomited in the office. After laying down patient significantly improved. Denies nausea. Patient chilling with blankets in office visit. Speaking clearly and appropriate response to provider. EYES PERRLA, conjunctiva and sclera normal. EARS External ears normal, NOSE/SINUS Nares normal. Septum midline. Mucosa normal. + clear drainage, no sinus tenderness. THROAT normal, no erythema NECK Supple, no adenopathy; HEART RRR with normal S1 and S2, LUNG clear to auscultation, No wheezing, rhonchi, rales. ABDOMEN bowel sounds normoactive, no bruits, soft, non-tender, non-distended, without organomegaly or palpable masses, no tenderness to palpation. Negative Estrada's, McBurney's, Rovsing's, no rebound, rigidity or guarding. BACK: Normal exam, no CVA TTP. EXTREMITIES Extremities normal, No deformities, No skin discoloration, No edema, and Normal pulses bilaterally. Mild TTP anterior shins DIONNE. Negative Homans' DIONNE. No edema, no calf TTP. NEURO Awake, alert and oriented x 3, Cranial nerves II-XII grossly intact, Reflexes symmetrical, Normal gait, and No involuntary motions. ASSESSMENT/PLAN: 1. Acute cough - ICD9: 786.2, ICD10: R05.1 (primary diagnosis) Suspicious for possible flu, start tamiflu while awaiting resu (more content not included)... Normal [facility] CNPNon 08-12-2024 CNPN Telephone (INTMWS) -------- LISETTE ENAMORADO ([id number]) 1940 F Date Time Provider Department 08/12/24 LISA PETER INTMWS During your visit today, we recorded the following information about you: Mynor Stinson RN 08/12/2024 11:11 AM Signed Pt reports she started having pain in her shoulders, arms, back last night and it continues today, and is all over her body. Reports she took tylenol but it didn't help. Pt doesn't know what is causing the pain- did not have a fall, did not have an injury. Asking for pain medication. Scheduled same day appt. Allergies As of Date: 08/12/2024 Noted Allergy Reaction DITROPAN (OXYBUTYNIN CHLORIDE) 02/24/2019 8 - GI Upset LISINOPRIL 06/30/2011 3 - Cough Date Reviewed: 06/24/2024 Reviewed by: Whit Vinson MA - Fully Assessed Reason for Visit: Patient Update [1234] Prescriptions as of 08/12/2024 - Cholecalciferol, Vitamin D3, (VITAMIN D-3) 50 mcg (2,000 unit) cap Take 1 capsule by mouth once daily. - colestipol (COLESTID) 1 gram tablet Take 1 tablet by mouth two times a day. Dr. Zarate - colestipol (COLESTID) 1 gram tablet Take 1 tablet by mouth two times a day. - ketoconazole (NIZORAL) 2 % cream Apply 1 application to affected area two times a day. - nystatin (MYCOSTATIN) cream Apply to affected area two times a day. Continue for 1 week after rash resolves - docusate sodium (COLACE) 100 mg capsule Take 1 capsule by mouth two times a day as needed for constipation. - acetaminophen (TYLENOL EXTRA STRENGTH) 500 mg tablet Take 1 tablet by mouth every 6 hours as needed for pain. Take this or the hydrocodone/acetaminophe n every 6 hours as needed for pain - ticagrelor (BRILINTA) 90 mg tablet Take 1 tablet by mouth two times a day. - ezetimibe (ZETIA) 10 mg tablet Take 1 tablet by mouth once daily. - levothyroxine (SYNTHROID) 75 mcg tablet Take 1 tablet by mouth daily before breakfast. - esomeprazole (NEXIUM) 40 mg capsule Take 1 capsule by mouth daily before breakfast. - trospium (SANCTURA) 20 mg tablet Take 1 tablet by mouth once daily. - amLODIPine (NORVASC) 5 mg tablet Take 1 tablet by mouth once daily. - metoprolol tartrate, short acting, (LOPRESSOR) 50 mg tablet Take 1 tablet by mouth three times daily. - Aspirin 81 mg Tab Take 1 tablet by mouth once daily. Take with food. Problem List As Of Date 08/12/2024 Noted Resolved INCOMPLETE BLADDER EMPTYING [R33.9] 05/11/2005 Essential hypertension [I10] History of IBS [Z87.19] GENERALIZED ANXIETY DIS [F41.1] GENERAL OSTEOARTHROSIS [M15.9] RETENTION OF URINE UNSPEC [R33.9] 08/22/2005 CERVICALGIA [M54.2] 07/24/2006 DIARRHEA NOS [R19.7] 06/16/2008 DIVERTICULOSIS OF COLON W/O BLEED [K57.30] 06/16/2008 Bilateral carotid artery stenosis [I65.23] 06/10/2009 Coronary artery disease involving [place]ier*01/20/2010 Unspecified Myalgia and Myositis [TEO3883] 02/28/2010 Sleep apnea [G47.30] 10/18/2011 Onychia and [...] with chronic kidney*10/26/2021 Hiatal hernia [K44.9] 07/25/2022 Lung nodule [R91.1] 02/01/2023 Incontinence of feces [R15.9] 03/20/2023 Encounter Status:Closed by Mynor STINSON on 08/12/24 Normal [facility] UA DIP, URINE (POC)on 2024 BILIRUBIN UA (POCT) Negative Negative [facility] CLARITY UA (POCT) Slightly Cloudy Cl [facility] COLOR UA (POCT) Other [facility] GLUCOSE UA (POCT) Negative Negative mg/dL [facility] Hemoglobin Ql (U) Negative Negative [facility] KETONE UA (POCT) Negative Negative mg/dL [facility] LEUKOCYTES UA (POCT) Negative Negative [facility] NITRITE UA (POCT) Negative Negative [facility] PH UA (POCT) 5.5 4.5 - 8.0 [facility] Protein Ql (U) Negative Negative mg/dL [facility] SPECIFIC GRAVITY UA (POCT) 1.02 1.005 - 1.030 [facility] UROBILINOGEN UA (POCT) 0.2 Rosa l E.U./dL [facility] Location:[facility], [address] [place] [address], [place], [place], [id number] [place] [address] POINT OF CARE [facility] 12 Lead EKG performed by [facility] on 07-17-2024 12 Lead EKG performed by [facility] [address] [place] [address] 12 Lead EKG performed by [facility] 07/17/24 1410 MR#: [id number] Acct: [id number] Name: LISETTE ENAMORADO Rep #: [id number] : 1940 84 From: Obey Ballard NP SCHEDULING MANAGER-C Attending Dr: JULIAN Still Status: DEP AMB Ordering Dr: Obey Ballard NP Date: 07/17/24 Location: [facility] Sex: F C Admitted: [facility]/12 Lead EKG performed by [facility] ECG Report Interpretation --Sinus Rhythm WITHIN NORMAL LIMITSElectronically signed on 07/23/2024 at 09:40 by Enrique [employer] Version [id number] 07/23/24 0944 Date Obey Ballard NP SCHEDULING MANAGERClarissaC CC: Dr. Lisa Peter MD Date Dictated: 07/17/24 141 Date Transcribed: 07/17/241409 Sheet Metal Fabricator: JEF Signed Normal [facility] Cardiology Visit Reporton Cardiology Visit Report [facility] [address] [place] [address] OFFICE VISIT Date of Service: 07/17/24 MR#: [id number] Acct: [id number] Name: LISETTE ENAMORADONNE Rep #: [id number] : 1940 Provider: JULIAN worley Age/Sex: 84/F Location: [facility] Status: Signed with Addenda ADDENDUM by JULIAN Ballard on 07/17/24 at 1443 Assessment and Plan Assessment and Plan (1) History of coronary artery stent placement: Status: Resolved Comment: TAMMY-RCA 03/09/2011;TAMMY-mid LAD 09/26/12; PCI-TAMMY to Ostial RCA 08/12/2013; PCI-TAMMY to ISR Mid LAD w/ Resolute Integrity 2.5 x 12 mm 08/13/2017; PCI-TAMMY-ISR Prox RCA 3.0 x 12 mm Elunir 05/22/18; VHM-QMG-DXJ-Mid LAD w/ 3.0 x 16 mm Synergy Stent 05/22/19 Plan: At this time, her pain is thought to be musculoskeletal. She was encouraged to reach out to primary care provider or orthopedic provider. Orders: Orders 12 Lead EKG performed by [facility] Today R07.9 - Chest pain, unspecified Medications: Discontinued colestipol Discontinued Reason: Order Completed 1 g PO BID 180 tabs 3RF Plan Details Follow Up: 12-15 Months ([employer]) 07/17/24 1443 Date Obey Ballard NP SCHEDULING MANAGER-C cc: Dr. Lisa Peter MD * Signed HPI HPI History of Present Illness Details: LISETTE ENAMORADO, is a 84 F with a history of coronary artery disease status post previous angioplasty and stenting to a nondominant right coronary artery as well as angioplasty and stenting to the left anterior descending artery. She also has marked mild to moderate occlusive peripheral vascular disease, hypertension, and hyperlipidemia. She had presented in August 2017 with chest discomfort and was admitted to the hospital and underwent a cardiac catheterization which demonstrated high- grade 99% in-stent stenosis of the previously placed LAD stent. She underwent repeat angioplasty and stenting with a 2.5???12 mm resolute integrity stent. The right coronary artery was left untouched showed 80% in-stent restenosis. She presented to our office on May 21, 2019 as a walk-in with concerns over chest discomfort. She was admitted for further evaluation of her chest discomfort. Ultimately she did undergo a diagnostic heart catheterization in which she required stenting to her mid LAD. She had in-stent stenosis and required a 3.0???16 Synergy stent placed. She acknowledges daily, dull chest ache. This occurs at rest. She notes this to be infrequent and located right shoulder. She notes this to worse with palpitation. She notes difficulty putting her coat on. She notes this pain since her previous fall. This has been ongoing for 7 months. She denies palpitations. She denies bilateral lower extremity edema. She does acknowledge left leg swelling along with right leg numbness and tingling. She denies claudication. She denies shortness of breath with activity, shortness of breath at rest, orthopnea, or PND. She denies chronic cough. She denies significant, sudden weight gain. She denies lightheadedness, dizziness, near-syncope, or syncope. She denies blood in urine, blood in stool, or epistaxis. He denies fever with chills. She denies myalgia. She denies fatigue. Her exercise level has remained stable. She states waking 3-4 with severe muscle cramps in legs. She expresses concerns regarding bruising easily. Intake Vital Signs 07/05/23 10:25 04/07/24 11:29 07/17/24 13:46 Height 5 ft 1 in 5 ft 2 in 5 ft 2 in Weight: 150 lb BMI 27.4 BP 145/69 H Blood Pressure Location Lt brachial Position Sitting Respiration 18 Pulse 80 Pulse Source NIBP Intake Visit Reasons: 1 Y FU Syrup Filterer Required: No Is patient in pain?: No Allergies DEIRDRE Inhibitors Allergy (Verified 07/17/24 13:51) Unknown ARB-Angiotensin Receptor Antagonist Allergy (Verified 07/17/24 13:51) Unknown lisinopril Adverse Reaction (Intermediate, Verified 07/17/24 13:51) Other atorvastatin calcium (From Lipitor) Adverse Reaction (Mild, Verified 07/17/24 13:51) Unknown pravastatin (From Pravachol) Adverse Reaction (Mild, Verified 07/17/24 13:51) Unknown Medications ???Medication ???Instructions ???Recorded ???Confirmed ???Type esomeprazole magnesium 40 mg 40 mg PO DAILY 05/17/22 07/17/24 H istory capsule,delayed release aspirin 81 mg tablet,delayed 81 mg PO DAILY #90 tabs 08/16/22 0 07/17/24 Rx release ezetimibe 10 mg tablet See Rx Instructions .Route 3 07/17/24 Rx .COMPLEX #90 TABLETS nitroglycerin 0.4 mg sublingual 0.4 mg sublingual Q5M PRN Chest 07/17/24 Rx tablet Pain #25 tabs metoprolol tartrate 50 mg tablet 50 mg PO BID #180 tabs 10/17/23 Rx levothyroxine 75 mcg tablet 75 mcg PO DAILY thyroid #90 tabs 0 10/31/23 07/17/24 Rx amlodipine 5 mg tablet 5 m (more content not included)... Normal [facility] MR/[facility] 07-02-2024 MR/[facility] [address] [place] [address] OFFICE VISIT Date of Service: 07/02/24 MR#: [id number] Acct: [id number] Name: LISETTE ENAMORADO Rep #: [id number] : 1940 Provider: ROBERTO Pagan Age/Sex: 84/F Location: [facility] Status: Signed Intake Vital Signs 04/07/24 11:29 07/02/24 15:17 Height 5 ft 2 in Weight: 148 lb BP 141/71 H Blood Pressure Location Lt brachial Position Sitting Respiration 16 Pulse 71 Pulse Source Monitor Temp 97.8 F Temp Source Temporal Pulse Oximetry (%) 98 Oxygen Delivery Method room air Intake Visit Reasons: 1 YR FU Is patient in pain?: No Allergies DEIRDRE Inhibitors Allergy (Verified 07/02/24 15:21) Unknown ARB-Angiotensin Receptor Antagonist Allergy (Verified 07/02/24 15:21) Unknown lisinopril Adverse Reaction (Intermediate, Verified 07/02/24 15:21) Other atorvastatin calcium (From Lipitor) Adverse Reaction (Mild, Verified 07/02/24 15:21) Unknown pravastatin (From Pravachol) Adverse Reaction (Mild, Verified 07/02/24 15:21) Unknown Medications ???Medication ???Instructions ???Recorded ???Confirmed ???Type calcium carbonate 500 mg PO BIDCM supplement 05/21/19 07/02/24 History multivitamin 1 tab PO DAILY 05/03/21 07/02/24 History esomeprazole magnesium 40 mg 40 mg PO DAILY 05/17/22 07/02/24 History capsule,delayed release aspirin 81 mg tablet,delayed 81 mg PO DAILY #90 tabs 08/16/22 07/02/24 Rx release colestipol 1 gram tablet 1 g PO BID #180 tabs 08/16/22 07/02/24 Rx ezetimibe 10 mg tablet See Rx Instructions .Route 08/16/22 07/02/24 Rx .COMPLEX #90 TABLETS nitroglycerin 0.4 mg sublingual 0.4 mg sublingual Q5M PRN Chest 08/16/22 07/02/24 Rx tablet Pain #25 tabs metoprolol tartrate 50 mg tablet 50 mg PO BID #180 tabs 10/17/23 07/02/24 Rx levothyroxine 75 mcg tablet 75 mcg PO DAILY thyroid #90 tabs 10/31/23 07/02/24 Rx amlodipine 5 mg tablet 5 mg PO DAILY #90 tabs 11/01/23 07/02/24 Rx ticagrelor 90 mg tablet (Brilinta) 90 mg PO BID 04/07/24 07/02/24 History cholecalciferol (vitamin D3) 25 1,000 unit PO DAILY supplement 07/02/24 07/02/24 History mcg (1,000 unit) tablet Is last menstrual period known: No Post menopausal: Yes Patient : No Have you fallen in the past year?: Yes PFSH Medical History Stenosis of left carotid artery Essential (primary) hypertension Pure hypercholesterolemia Atherosclerosis of [place] coronary artery of [place] heart without angina pectoris Intermittent claudication Surgical History History of appendectomy History of tonsillectomy History of left heart catheterization (08/13/17) History of coronary artery stent placement (05/22/19) Family History Mother CAD (coronary artery disease) Grandmother CAD (coronary artery disease) Social History household members: none Smoking Status: Never smoker alcohol intake: never substance use type: does not use caffeine: No HPI HPI HPI: LISETTE ENAMORADO, is a 84 F who presents to the office today for follow-up of her carotid artery disease. Carotid duplex 01/17/23 revealed L ICA stenosis >70% with maximum velocity 283/50 cm/sec. CTA 03/2023 showed actually 53% L ICA stenosis by NASCET. Most recent carotid duplex was 04/29/24 and showed max L ICA PSV 247.6/37.5 suggesting stable carotid disease. She denies any episodes of neurologic symptoms such as unilateral weakness, paresthesias/numbness, vision loss/changes, dysarthria, facial droop. She takes ASA and Brilinta for her coronary artery disease. She is statin intolerant, on Zetia. ROS General General: No weight change, appetite, fatigue, colon cancer, breast cancer or weakness HEENT HEENT: No difficulty swallowing, eye injury, eye surgery, swollen glands or hoarseness Endo Endocrine: Yes thyroid disease; No diabetes mellitus, thyroid cancer, Hair loss, heat intolerance or cold intolerance Skin Skin: No rash or changing moles Musc Musculoskeletal: Yes back problems; No arthritis, rheumatoid arthritis, gout or joint pain Cardio Cardiovascular: Yes heart disease, high blood pressure and heart stent; No murmur, pacemaker, atrial fibrillation, heart attack, palpitations, shortness of breat with exertion or chest pain Psych Psychiatric: Yes depression; No anxiety or hearing voices Resp Respiratory: No shortness of breath, Yes sleep apnea, No cough, No COPD, No asthma, No emphysema and No wheezing Gastro Gastrointestinal: No abdominal pain, No nausea or vomiting, No diarrhea, Yes constipation, No blood in stool, No acid reflux, No hemorrho (more content not included)... Normal [facility] US DVT LOWER LTon 07-02-2024 US DVT LOWER LT * * *Final Report* * * DATE OF EXAM: Jul 02 2024 1:31PM [facility] 1006 - US DVT LOWER LT / PROCEDURE REASON: Left leg pain * * * * Physician Interpretation * * * * EXAMINATION: LEFT LOWER EXTREMITY DEEP VENOUS ULTRASOUND WITH DOPPLER IMAGING CLINICAL HISTORY: Pain TECHNIQUE: Grayscale with compression maneuvers, color Doppler and spectral Doppler imaging of the left proximal deep veins was performed. Grayscale with compression maneuvers of the peroneal and posterior tibial veins was performed. The left great and small saphenous veins were evaluated at their insertion to the deep system. The contralateral common femoral vein was imaged for comparison. Images were obtained and stored in a permanent archive. MQ: USLEL_1 COMPARISON: None RESULT: LEFT LOWER EXTREMITY PROXIMAL DEEP VEINS Distal External Iliac, Common Femoral and proximal Profunda Veins: Compression: Normal Doppler: Normal, spontaneous respirophasic flow. Normal response to augmentation. Femoral vein: Compression: Normal Doppler: Normal, spontaneous flow. Normal response to augmentation. Popliteal vein: Compression: Normal Doppler: Normal, spontaneous flow. Normal response to augmentation. CALF DEEP VEINS Peroneal veins: Normal compression. Posterior tibial veins: Normal compression. Gastrocnemius and Soleal veins: Not imaged. SUPERFICIAL VEINS Great saphenous: Patent and compressible at insertion into common femoral vein; not otherwise assessed. Small Saphenous: Patent and compressible in the proximal calf, not otherwise assessed. RIGHT LOWER EXTREMITY (FOR COMPARISON) Common Femoral Vein: Compression: Normal Doppler: Normal, spontaneous respirophasic flow. Normal response to augmentation. IMPRESSION: Negative study for proximal DVT in the left lower extremity. Negative study for calf DVT in the left lower extremity. Negative study for superficial thrombophlebitis in the imaged segments of the left lower extremity. Sheet Metal Fabricator: [facility] Transcribe Date/Time: Jul 02 2024 1:52P Dictated by : SILVA LUJAN MD This examination was interpreted and the report reviewed and electronically signed by: SILVA LUJAN MD on Jul 02 2024 1:53PM EST [id number] Normal [facility] US Lower extremity vein - le fton 07-02-2024 IMPRESSION: Negative study for proximal DVT in the left lower extremity. Negative study for calf DVT in the left lower extremity. Negative study for superficial thrombophlebitis in the imaged segments of the left lower extremity. Sheet Metal Fabricator: [facility] Transcribe Date/Time: Jul 02 2024 1:52P Dictated by : SILVA LUJAN MD This examination was interpreted and the report reviewed and electronically signed by: SILVA LUJAN MD on Jul 02 2024 1:53PM EST DIVISION OF RADIOLOGY * * *Final Report* * * DATE OF EXAM: Jul 02 2024 1:31PM [facility] 1006 - US DVT LOWER LT / PROCEDURE REASON: Left leg pain * * * * Physician Interpretation * * * * EXAMINATION: LEFT LOWER EXTREMITY DEEP VENOUS ULTRASOUND WITH DOPPLER IMAGING CLINICAL HISTORY: Pain TECHNIQUE: Grayscale with compression maneuvers, color Doppler and spectral Doppler imaging of the left proximal deep veins was performed. Grayscale with compression maneuvers of the peroneal and posterior tibial veins was performed. The left great and small saphenous veins were evaluated at their insertion to the deep system. The contralateral common femoral vein was imaged for comparison. Images were obtained and stored in a permanent archive. MQ: USLEL_1 COMPARISON: None RESULT: LEFT LOWER EXTREMITY PROXIMAL DEEP VEINS Distal External Iliac, Common Femoral and proximal Profunda Veins: Compression: Normal Doppler: Normal, spontaneous respirophasic flow. Normal response to augmentation. Femoral vein: Compression: Normal Doppler: Normal, spontaneous flow. Normal response to augmentation. Popliteal vein: Compression: Normal Doppler: Normal, spontaneous flow. Normal response to augmentation. CALF DEEP VEINS Peroneal veins: Normal compression. Posterior tibial veins: Normal compression. Gastrocnemius and Soleal veins: Not imaged. SUPERFICIAL VEINS Great saphenous: Patent and compressible at insertion into common femoral vein; not otherwise assessed. Small Saphenous: Patent and compressible in the proximal calf, not otherwise assessed. RIGHT LOWER EXTREMITY (FOR COMPARISON) Common Femoral Vein: Compression: Normal Doppler: Normal, spontaneous respirophasic flow. Normal response to augmentation. DIVISION OF RADIOLOGY Provider, [facility] - 07/02/2024 * * *Final Report* * * DATE OF EXAM: Jul 02 2024 1:31PM [facility] 1006 - US DVT LOWER LT / PROCEDURE REASON: Left leg pain * * * * Physician Interpretation * * * * EXAMINATION: LEFT LOWER EXTREMITY DEEP VENOUS ULTRASOUND WITH DOPPLER IMAGING CLINICAL HISTORY: Pain TECHNIQUE: Grayscale with compression maneuvers, color Doppler and spectral Doppler imaging of the left proximal deep veins was performed. Grayscale with compression maneuvers of the peroneal and posterior tibial veins was performed. The left great and small saphenous veins were evaluated at their insertion to the deep system. The contralateral common femoral vein was imaged for comparison. Images were obtained and stored in a permanent archive. MQ: USLEL_1 COMPARISON: None RESULT: LEFT LOWER EXTREMITY PROXIMAL DEEP VEINS Distal External Iliac, Common Femoral and proximal Profunda Veins: Compression: Normal Doppler: Normal, spontaneous respirophasic flow. Normal response to augmentation. Femoral vein: Compression: Normal Doppler: Normal, spontaneous flow. Normal response to augmentation. Popliteal vein: Compression: Normal Doppler: Normal, spontaneous flow. Normal response to augmentation. CALF DEEP VEINS Peroneal veins: Normal compression. Posterior tibial veins: Normal compression. Gastrocnemius and Soleal veins: Not imaged. SUPERFICIAL VEINS Great saphenous: Patent and compressible at insertion into common femoral vein; not otherwise assessed. Small Saphenous: Patent and compressible in the proximal calf, not otherwise assessed. RIGHT LOWER EXTREMITY (FOR COMPARISON) Common Femoral Vein: Compression: Normal Doppler: Normal, spontaneous respirophasic flow. Normal response to augmentation. IMPRESSION IMPRESSION: Negative study for proximal DVT in the left lower extremity. Negative study for calf DVT in the left lower extremity. Negative study for superficial thrombophlebitis in the imaged segments of the left lower extremity. Sheet Metal Fabricator: [employer] Transcribe Date/Time: Jul 02 2024 1:52P Dictated by : SILVA LUJAN MD This examination was interpreted and the report reviewed and electronically signed by: SILVA LUJAN MD on Jul 02 2024 1:53PM [facility] Radiology Study observation (narrative) [facility] US Lower extremity vein - le ftOrdered By: Ccf Provider on 07-02-2024 [facility] XR Tibia and Fibula - left A P and Lateralon 06-26-2024 IMPRESSION: No acute bony finding. Sheet Metal Fabricator: [employer] Transcribe Date/Time: Jun 26 2024 2:08P Dictated by : CARLOS LIU MD This examination was interpreted and the report reviewed and electronically signed by: CARLOS LIU MD on Jun 26 2024 2:09PM [facility] DIVISION OF RADIOLOGY * * *Final Report* * * DATE OF EXAM: Jun 24 2024 12:18PM [id number] - XR TIBIA FIBULA 2V AP/LAT LT / PROCEDURE REASON: multiple diagnoses * * * * Physician Interpretation * * * * Left tibia-fibula HISTORY: 84 years old Clinical information: Left leg pain Leg cramp Pain and cramping in lateral mid left tib-fib. No known injury. TECHNIQUE: Images: XR TIBIA FIBULA 2V AP/LAT LT Comparison: None. RESULT: Findings: No fracture or dislocation is evident. DIVISION OF RADIOLOGY Provider, Maulik [facility] - 06/26/2024 * * *Final Report* * * DATE OF EXAM: Jun 24 2024 12:18PM [id number] - XR TIBIA FIBULA 2V AP/LAT LT / PROCEDURE REASON: multiple diagnoses * * * * Physician Interpretation * * * * Left tibia-fibula HISTORY: 84 years old Clinical information: Left leg pain Leg cramp Pain and cramping in lateral mid left tib-fib. No known injury. TECHNIQUE: Images: XR TIBIA FIBULA 2V AP/LAT LT Comparison: None. RESULT: Findings: No fracture or dislocation is evident. IMPRESSION IMPRESSION: No acute bony finding. Sheet Metal Fabricator: [employer] Transcribe Date/Time: Jun 26 2024 2:08P Dictated by : CARLOS LIU MD This examination was interpreted and the report reviewed and electronically signed by: CARLOS LIU MD on Jun 26 2024 2:09PM EST [facility] XR Tibia and Fibula - left A P and LateralOrdered By: Ccf Provider on 06-26-2024 [facility] Cobalamin (Vitamin B12) [Mas s/Vol]on 06-25-2024 Interpretation and review of laboratory results Normal [facility] Comprehensive metabolic 2000 panelon 06-25-2024 Albumin [Mass/Vol] 4.3 g/dL 3.9 - 4.9 g/dL [facility] ALP [Catalytic activity/Vol] 83 U/L 34 - 123 U/L [facility] ALT [Catalytic activity/Vol] 19 U/L 7 - 38 U/L [facility] Anion gap [Moles/Vol] 13 mmol/L 8 - 15 mmol/L [facility] AST [Catalytic activity/Vol] 25 U/L 13 - 35 U/L [facility] Bilirubin [Mass/Vol] 0.4 mg/dL 0.2 - 1 .3 mg/dL [facility] Calcium [Mass/Vol] 9.6 mg/dL 8.5 - 10. 2 mg/dL [facility] Chloride [Moles/Vol] 105 mmol/L 98 - 10 7 mmol/L [facility] CO2 [Moles/Vol] 21 mmol/L Low 22 - 30 mmol/L [facility] Creatinine [Mass/Vol] 1.14 mg/dL High 0.58 - 0.96 mg/dL [facility] GFR/1.73 sq M.predicted among non-blacks MDRD (S/P/Bld) [Vol rate/Area] 47 mL/min/{1.73_m2} Low - PINF [facility] Comment on above: Estimated Glomerular Filtration Rate (eGFR) is calculated using the 2020 CKD-EPI creatinine equation. This equation utilizes serum creatinine, sex, and age as parameters. The creatinine assay has traceable calibration to isotope dilution-mass spectrometry. Refer to KDIGO guidelines for clinical interpretation. In patients with unstable renal function, e.g. those with acute kidney injury, the eGFR may not accurately reflect actual GFR. Glucose [Mass/Vol] 77 mg/dL 74 - 99 mg/dL [facility] Comment on above: The [place] Diab[employer] Association (ADA) provides guidance for cutoff values for fasting glucose and random glucose. The ADA defines fasting as no caloric intake for at least 8 hours. Fasting plasma glucose results between 100 to 125 mg/dL indicate increased risk for diabetes (prediabetes). Fasting plasma glucose results greater than or equal to 126 mg/dL meet the criteria for diagnosis of diabetes. In the absence of unequivocal hyperglycemia, results should be confirmed by repeat testing. In a patient with classic symptoms of hyperglycemia or hyperglycemic crisis, random plasma glucose results greater than or equal to 200 mg/dL meet the criteria for diagnosis of diabetes. Reference: Standards of Medical Care in Diabetes 2016, [place] [employer]. Diabetes Care. 2016.39(Suppl 1). Interpretation and review of laboratory results Abnormal [facility] Potassium [Moles/Vol] 4.5 mmol/L 3.7 - 5.1 mmol/L [facility] Protein [Mass/Vol] 7.0 g/dL 6.3 - 8.0 g/dL [facility] Sodium [Moles/Vol] 139 mmol/L 136 - 144 mmol/L [facility] Urea nitrogen [Mass/Vol] 26 mg/dL High 7 - 21 mg/dL [facility] FERRITINon 06-25-2024 Ferritin [Mass/Vol] 130.0 ng/mL 14.7 - 2 05.1 ng/mL [facility] Ferritin [Mass/Vol]on 2024 Interpretation and review of laboratory results Normal [facility] Iron and Iron binding capaci ty panelon 06-25-2024 Iron [Mass/Vol] 78 ug/dL 41 - 186 ug/dL [facility] Iron binding capacity [Mass/Vol] 283 ug/dL 232 - 386 ug/dL [facility] Iron/TIBC [Molar ratio] 27.6 % 15.0 - 57.0 % [facility] MAGNESIUMon 06-25-2024 Magnesium [Mass/Vol] 2.2 mg/dL 1.7 - 2 .3 mg/dL [facility] No Panel Informationon 06-25 Interpretation and review of laboratory results Normal [facility] VITAMIN B12on 06-25-2024 Cobalamin (Vitamin B12) [Mass/Vol] 1083 pg/mL 232 - 1245 pg/mL [facility] 25(OH)D3 SerPl-mCncon 2024 25-hydroxyvitamin D3 [Mass/Vol] 92.3 ng/mL High 31.0-80.0 [facility] Comment on above: Order Comment: Speci men Type: BLOOD SPECIMENOrdering Facility: [facility] Address: [address] [place] [address] Result Comment: Clamellissa sification of 25 [place] Vitamin D status: Deficiency/Insufficiency: < or = 30 ng/ml. Sufficiency/Optimal Levels: 31-80 ng/mL Toxicity: > 100 ng/mL. Test performed by chemiluminescent immunoassay. Performed By: #### 1 989-3 ####[facility] LABCLIA [id number] [place] [address] [place] 25-hydroxyvitamin D3 [Mass/V ol]on 06-24-2024 Interpretation and review of laboratory results Abnormal [facility] The reference range interval was based on an analysis of samples from healthy adults and may not pertain to children from 0-18 years old. [facility] CBC W Auto Differential pane l (Bld)on 06-24-2024 Basophils (Bld) [#/Vol] 0.06 10*3/uL [facility] Basophils/100 WBC (Bld) 0.9 % [facility] Differential cell count method Nom (Bld) Auto [facility] Eosinophils (Bld) [#/Vol] 0.20 10*3/uL [facility] Eosinophils/100 WBC (Bld) 2.9 % [facility] Erythrocyte distribution width (RBC) [Ratio] 13.3 % 11.5 - 15.0 % [facility] Hematocrit (Bld) [Volume fraction] 41.5 % 36.0 - 46.0 % [facility] Hemoglobin (Bld) [Mass/Vol] 13.7 g/dL 11.5 - 15.5 g/dL [facility] Immature granulocytes (Bld) [#/Vol] [facility] Immature granulocytes/100 WBC (Bld) 0.1 % [facility] Lymphocytes (Bld) [#/Vol] 2.26 10*3/uL [facility] Lymphocytes/100 WBC (Bld) 33.2 % [facility] MCH (RBC) [Entitic mass] 28.8 pg 26.0 - 34.0 pg [facility] MCHC (RBC) [Mass/Vol] 33.0 g/dL 30.5 - 36.0 g/dL [facility] MCV (RBC) [Entitic vol] 87.4 fL 80.0 - 100.0 fL [facility] Monocytes (Bld) [#/Vol] 0.57 10*3/uL [facility] Monocytes/100 WBC (Bld) 8.4 % [facility] Neutrophils (Bld) [#/Vol] 3.71 10*3/uL [facility] Neutrophils/100 WBC (Bld) 54.5 % [facility] Nucleated RBC (Bld) [#/Vol] [facility] Nucleated RBC/100 WBC (Bld) [Ratio] 0.0 % /100 WBC [facility] Platelet mean volume (Bld) [Entitic vol] 12.0 fL 9.0 - 12.7 fL [facility] Platelets (Bld) [#/Vol] 243 10*3/uL [facility] RBC (Bld) [#/Vol] 4.75 10*6/uL 3.90 - 5.2 0 m/uL [facility] WBC (Bld) [#/Vol] 6.81 10*3/uL [facility] Basophils (Bld) [#/Vol] 0.06 10*3/uL Normal <0.11 [facility] Comment on above: Order Comment: Speci men Type: BLOOD SPECIMENOrdering Facility: [facility] Address: [address] [place] [address] Performed By: #### 5 7021-8 ####[facility] LABCLIA [id number] [address] [place] Basophils/100 WBC (Bld) 0.9 % Normal [facility] Comment on above: Order Comment: Speci men Type: BLOOD SPECIMENOrdering Facility: [facility] Address: [address] [place] [address] Performed By: #### 5 7021-8 ####[facility] LABCLIA [id number] [place] [address] [place] Differential cell count method Nom (Bld) Auto Normal [facility] Comment on above: Order Comment: Speci men Type: BLOOD SPECIMENOrdering Facility: [facility] Address: [address] [place] [address] Performed By: #### 5 7021-8 ####[facility] LABCLIA [id number] [place] [address] [place] Eosinophils (Bld) [#/Vol] 0.20 10*3/uL Normal <0.46 [facility] Comment on above: Order Comment: Speci men Type: BLOOD SPECIMENOrdering Facility: [facility] Address: [address] [place] [address] Performed By: #### 5 7021-8 ####[facility] LABCLIA [id number] [place] [address] [place] Eosinophils/100 WBC (Bld) 2.9 % Normal [facility] Comment on above: Order Comment: Speci men Type: BLOOD SPECIMENOrdering Facility: [facility] Address: [address] [place] [address] Performed By: #### 5 7021-8 ####[facility] LABCLIA [id number] [place] [address] [place] Erythrocyte distribution width (RBC) [Ratio] 13.3 % Normal 11.5-15.0 [facility] Comment on above: Order Comment: Speci men Type: BLOOD SPECIMENOrdering Facility: [facility] Address: [address] [place] [address] Performed By: #### 5 7021-8 ####[facility] LABCLIA [id number] [place] [address] [place] Hematocrit (Bld) [Volume fraction] 41.5 % Normal 36.0-46.0 [facility] Comment on above: Order Comment: Speci men Type: BLOOD SPECIMENOrdering Facility: [facility] Address: [address] [place] [address] Performed By: #### 5 7021-8 ####[facility] LABCLIA [id number] [place] [address] [place] Hemoglobin (Bld) [Mass/Vol] 13.7 g/dL Normal 11.5-15.5 [facility] Comment on above: Order Comment: Speci men Type: BLOOD SPECIMENOrdering Facility: [facility] Address: [address] [place] [address] Performed By: #### 5 7021-8 ####[facility] LABCLIA [id number] [place] [address] [place] Immature granulocytes (Bld) [#/Vol] 10*3/uL Normal <0.10 [facility] Comment on above: Order Comment: Speci men Type: BLOOD SPECIMENOrdering Facility: [facility] Address: [address] [place] [address] Performed By: #### 5 7021-8 ####[facility] LABCLIA [id number] [place] [address] [place] Immature granulocytes/100 WBC (Bld) 0.1 % Normal [facility] Comment on above: Order Comment: Speci men Type: BLOOD SPECIMENOrdering Facility: [facility] Address: [address] [place] [address] Performed By: #### 5 7021-8 ####[facility] LABCLIA [id number] [place] [address] [place] Lymphocytes (Bld) [#/Vol] 2.26 10*3/uL Normal 1.00-4.00 [facility] Comment on above: Order Comment: Speci men Type: BLOOD SPECIMENOrdering Facility: [facility] Address: [address] [place] [address] Performed By: #### 5 7021-8 ####[facility] LABIA [id number] [place] [address] [place] Lymphocytes/100 WBC (Bld) 33.2 % Normal [facility] Comment on above: Order Comment: Speci men Type: BLOOD SPECIMENOrdering Facility: [facility] Address: [address] [place] [address] Performed By: #### 5 7021-8 ####[facility] LABIA [id number] [place] [address] [place] MCH (RBC) [Entitic mass] 28.8 pg Normal 26.0-34.0 [facility] Comment on above: Order Comment: Speci men Type: BLOOD SPECIMENOrdering Facility: [facility] Address: [address] [place] [address] Performed By: #### 5 7021-8 ####[facility] LABIA [id number] [place] [address] [place] MCHC (RBC) [Mass/Vol] 33.0 g/dL Normal 30.5-36.0 [facility] Comment on above: Order Comment: Speci men Type: BLOOD SPECIMENOrdering Facility: [facility] Address: [address] [place] [address] Performed By: #### 5 7021-8 ####[facility] LABIA [id number] [place] [address] [place] MCV (RBC) [Entitic vol] 87.4 fL Normal 80.0-100.0 [facility] Comment on above: Order Comment: Speci men Type: BLOOD SPECIMENOrdering Facility: [facility] Address: [address] [place] [address] Performed By: #### 5 7021-8 ####[facility] LABCLIA [id number] [place] [address] [place] Monocytes (Bld) [#/Vol] 0.57 10*3/uL Normal <0.87 [facility] Comment on above: Order Comment: Speci men Type: BLOOD SPECIMENOrdering Facility: [facility] Address: [address] [place] [address] Performed By: #### 5 7021-8 ####[facility] LABCLIA [id number] [place] [address] [place] Monocytes/100 WBC (Bld) 8.4 % Normal [facility] Comment on above: Order Comment: Speci men Type: BLOOD SPECIMENOrdering Facility: [facility] Address: [address] [place] [address] Performed By: #### 5 7021-8 ####[facility] LABCLIA [id number] [place] [address] [place] Neutrophils (Bld) [#/Vol] 3.71 10*3/uL Normal 1.45-7.50 [facility] Comment on above: Order Comment: Speci men Type: BLOOD SPECIMENOrdering Facility: [facility] Address: [address] [place] [address] Performed By: #### 5 7021-8 ####[facility] LABCLIA [id number] [place] [address] [place] Neutrophils/100 WBC (Bld) 54.5 % Normal [facility] Comment on above: Order Comment: Speci men Type: BLOOD SPECIMENOrdering Facility: [facility] Address: [address] [place] [address] Performed By: #### 5 7021-8 ####[facility] LABCLIA [id number] [place] [address] [place] Nucleated RBC (Bld) [#/Vol] 10*3/uL Normal <0.01 [facility] Comment on above: Order Comment: Speci men Type: BLOOD SPECIMENOrdering Facility: [facility] Address: [address] [place] [address] Performed By: #### 5 7021-8 ####[facility] LABCLIA [id number] [place] [address] [place] Nucleated RBC/100 WBC (Bld) [Ratio] 0.0 /100 WBC Normal [facility] Comment on above: Order Comment: Speci men Type: BLOOD SPECIMENOrdering Facility: [facility] Address: [address] [place] [address] Performed By: #### 5 7021-8 ####[facility] LABCLIA [id number] [place] [address] [place] Platelet mean volume (Bld) [Entitic vol] 12.0 fL Normal 9.0-12.7 [facility] Comment on above: Order Comment: Speci men Type: BLOOD SPECIMENOrdering Facility: [facility] Address: [address] [place] [address] Performed By: #### 5 7021-8 ####[facility] LABIA [id number] [place] [address] [place] Platelets (Bld) [#/Vol] 243 10*3/uL Normal 150-400 [facility] Comment on above: Order Comment: Speci men Type: BLOOD SPECIMENOrdering Facility: [facility] Address: [address] [place] [address] Performed By: #### 5 7021-8 ####[facility] LABIA [id number] [place] [address] [place] RBC (Bld) [#/Vol] 4.75 10*6/uL Normal 3.90-5.20 [facility] Comment on above: Order Comment: Speci men Type: BLOOD SPECIMENOrdering Facility: [facility] Address: [address] [place], [place] [address] Performed By: #### 5 7021-8 ####[facility] LABCLIA [id number] [address] [address] [place] WBC (Bld) [#/Vol] 6.81 10*3/uL Normal 3.70-11.00 [facility] Comment on above: Order Comment: Speci men Type: BLOOD SPECIMENOrdering Facility: [facility] Address: [address] [facility] [place] [id number] Performed By: #### 5 7021-8 ####[facility] LABCLIA [id number] [place] [id number] [place] CNOVon 06-24-2024 CNOV Office Visit (FAMManjuWS ) -------- LISETTE ENAMORADO ([id number]) 1940 F Date Time Provider Department 06/24/24 11:40 AM ERIC LOCKETT During your visit today, we recorded the following information about you: Pulse Respiration Blood pressure Weight 66/minute 16/minute 136/74 67.6 kg Eric Lockett PA-C 06/26/2024 12:38 PM Signed 06/24/2024 Patient presents with: Musculoskeletal Problem: Left leg cramping/spasticity x 1 month SUBJECTIVE: This is a 84 year old that is here today for Complaint(s) of let leg pain and cramping, intermittent. Has had this for greater than a year. Tells me they occur more frequently at bedtime or middle of the night. States her leg will go stiff and in pain and has to rub it out. She does have a dull ache persisting in the left leg persisting on the anterior/lateral aspect of the byrne. No pain with walking. No swelling, redness, warmth. Has had these symptoms for over a year, but seems to be increasing in frequency. Always occurred at night before, and now has had this occur after sitting for a period during the day. She will have times where she has no symptoms. No recent travel, surgeries, non-smoker. Admits she drinks a lot of coffee, likely not drinking enough water. She has added gatorade and bananas to her diet recently, overall not helping. Denies any calf pain with walking. Denies chest pain, SOB, back pain, numbness/tingling, weakness, rash. Just started taking magnesium as well. No injury/trauma. PAST MEDICAL HISTORY Diagnosis Date Coronary artery disease Diarrhea Generalized anxiety disorder Generalized osteoarthrosis, unspecified site lumbar and c-spine Hematochezia 03/31/2021 Incomplete bladder emptying 05/11/2005 Irritable bowel syndrome Pure hypercholesterolemia Thyroid disease Unspecified essential hypertension ALLERGIES Ditropan [Oxybutynin Chloride] and Lisinopril MEDICATIONS Current Outpatient Medications Medication Sig colestipol (COLESTID) 1 gram tablet Take 1 tablet by mouth two times a day. ketoconazole (NIZORAL) 2 % cream Apply 1 application to affected area two times a day. nystatin (MYCOSTATIN) cream Apply to affected area two times a day. Continue for 1 week after rash resolves docusate sodium (COLACE) 100 mg capsule Take 1 capsule by mouth two times a day as needed for constipation. acetaminophen (TYLENOL EXTRA STRENGTH) 500 mg tablet Take 1 tablet by mouth every 6 hours as needed for pain. Take this or the hydrocodone/acetaminophe n every 6 hours as needed for pain ezetimibe (ZETIA) 10 mg tablet Take 1 tablet by mouth once daily. levothyroxine (SYNTHROID) 75 mcg tablet Take 1 tablet by mouth daily before breakfast. esomeprazole (NEXIUM) 40 mg capsule Take 1 capsule by mouth daily before breakfast. amLODIPine (NORVASC) 5 mg tablet Take 1 tablet by mouth once daily. metoprolol tartrate, short acting, (LOPRESSOR) 50 mg tablet Take 1 tablet by mouth three times daily. cholecalciferol, vitamin D3, 4,000 unit cap Take 1 Dose by mouth once daily. Aspirin 81 mg Tab Take 1 tablet by mouth once daily. Take with food. colestipol (COLESTID) 1 gram tablet Take 1 tablet by mouth two times a day. Dr. Zarate (Patient not taking: Reported on 06/24/2024) ticagrelor (BRILINTA) 90 mg tablet Take 1 tablet by mouth two times a day. (Patient not taking: Reported on 12/07/2023) trospium (SANCTURA) 20 mg tablet Take 1 tablet by mouth once daily. cyclobenzaprine (FLEXERIL) 10 mg tablet Take 0.5 tablets by mouth three times daily as needed for muscle spasm or pain. (Patient not taking: Reported on 08/27/2023) No current facility-administered medications for this visit. SOCIAL HISTORY Social History Tobacco Use Smoking status: Never Smokeless tobacco: Never Vaping Use Vaping status: Never Used Substance Use Topics Alcohol use: Yes Comment: rare glass of wine Drug use: No REVIEW OF SYSTEMS See HPI OBJECTIVE: BP 136/74 Pulse 66 Resp 16 Wt 67.6 kg (149 lb) SpO2 95% BMI 27.25 kg/m? APPEARANCE Well appearing, alert, in no acute distress, well-hydrated, well nourished. HEART RRR with normal S1 and S2, no murmurs, no gallops, no JVD appreciated LUNG clear to auscultation EXTREMITIES No deformities, No skin discoloration, No edema, and Normal pulses bilaterally. Normal ROM ankles and knees DIONNE. No calf TTP, negative Homans' DIONNE. No erythema or warmth. + mild TTP anterior distal LE overlying fibula. ASSESSMENT/PLAN: 1. Left leg pain - ICD9: 729.5, ICD10: M79.605 (primary diagnosis) Encouraged increased hydration, limiting caffeine Gentle stretching exercises before bed Check labs, electrolytes XR today Consider US LE -no significant edema, calf pain - COMPREHENSIVE METABOLIC PANEL - IRON AND TIBC - FERRITIN - VITAMIN B12 - VITAMIN D 25 HYDROXY - MAGNESIUM - XR TIBIA FIBULA 2V AP/LAT LEF (more content not included)... Normal [facility] Comprehensive metabolic 2000 panelon 06-24-2024 Albumin [Mass/Vol] 4.3 g/dL Normal 3.9-4.9 [facility] Comment on above: Order Comment: Speci men Type: BLOOD SPECIMENOrdering Facility: [facility] Address: [address] [place] [address] [place] [address] Performed By: #### 2 4323-8, 49089-3, 68388-7, 2275-4 ####[facility] LABCLIA [id number] [address] [address] [place] ALP [Catalytic activity/Vol] 83 U/L Normal 34-123 [facility] Comment on above: Order Comment: Speci men Type: BLOOD SPECIMENOrdering Facility: [facility] Address: [address] [place] [address] Performed By: #### 2 4323-8, 98321-7, 39157-0, 2275-4 ####[facility] LABCLIA [id number] [address] [address] [place] ALT [Catalytic activity/Vol] 19 U/L Normal 7-38 [facility] Comment on above: Order Comment: Speci men Type: BLOOD SPECIMENOrdering Facility: [facility] Address: [address] [place] [address] Performed By: #### 2 4323-8, 86087-2, 49074-7, 2275-4 ####[facility] LABCLIA [id number] [address] [address] [place] Anion gap [Moles/Vol] 13 mmol/L Normal 8-15 [facility] Comment on above: Order Comment: Speci men Type: BLOOD SPECIMENOrdering Facility: [facility] Address: [address] [place] [address] Performed By: #### 2 4323-8, 46967-1, 19404-1, 2275-4 ####[facility] LABCLIA [id number] [address] [address] [place] AST [Catalytic activity/Vol] 25 U/L Normal 13-35 [facility] Comment on above: Order Comment: Speci men Type: BLOOD SPECIMENOrdering Facility: [facility] Address: [address] [place] [address] Performed By: #### 2 4323-8, 17347-8, , 2275-09 ####[facility] LABCLIA [id number] [address] [address] [place] Bilirubin [Mass/Vol] 0.4 mg/dL Normal 0.2-1.3 [facility] Comment on above: Order Comment: Speci men Type: BLOOD SPECIMENOrdering Facility: [facility] Address: [address] [place] [address] Performed By: #### 2 4323-8, 65904-5, , 2275-09 ####[facility] LABCLIA [id number] [place] [id number] [place] Calcium [Mass/Vol] 9.6 mg/dL Normal 8.5-10.2 [facility] Comment on above: Order Comment: Speci men Type: BLOOD SPECIMENOrdering Facility: [facility] Address: [address] [place] [address] Performed By: #### 2 4323-8, 89814-8, , 2275-09 ####[facility] LABCLIA [id number] [place] [id number] [place] Chloride [Moles/Vol] 105 mmol/L Normal 98-107 [facility] Comment on above: Order Comment: Speci men Type: BLOOD SPECIMENOrdering Facility: [facility] Address: [address] [place] [address] Performed By: #### 2 4323-8, 85791-1, , 2275-09 ####[facility] LABCLIA [id number] [address] [address] [place] CO2 [Moles/Vol] 21 mmol/L Low 22-30 [facility] Comment on above: Order Comment: Speci men Type: BLOOD SPECIMENOrdering Facility: [facility] Address: [address] [place] [address] Performed By: #### 2 4323-8, 51345-9, , 2275-09 ####[facility] LABIA [id number] [place] [id number] [place] Creatinine [Mass/Vol] 1.14 mg/dL High 0.58-0.96 [facility] Comment on above: Order Comment: Brown sanchez Type: BLOOD SPECIMENOrdering Facility: [facility] Address: [address] [place] [address] Performed By: #### 2 4323-8, 84371-4, , 2275-09 ####[facility] [id number] [place] [address] [place] Creatinine and Glomerular filtration rate.predicted panel (S/P/Bld) 47 mL/min/1.73m??? Low >=60 [facility] Comment on above: Order Comment: Brown sanchez Type: BLOOD SPECIMENOrdering Facility: [facility] Address: [address] [place] [address] Result Comment: Ashley mated Glomerular Filtration Rate (eGFR) is calculated using the 2020 CKD-EPI creatinine equation. This equation utilizes serum creatinine, sex, and age as parameters. The creatinine assay has traceable calibration to isotope dilution-mass spectrometry. Refer to KDIGO guidelines for clinical interpretation. In patients with unstable renal function, e.g. those with acute kidney injury, the eGFR may not accurately reflect actual GFR. Performed By: #### 2 4323-8, 15843-0, , 2275-09 ####[facility] LABIA [id number] [place] [id number] [place] Glucose [Mass/Vol] 77 mg/dL Normal 74-99 [facility] Comment on above: Order Comment: Speci men Type: BLOOD SPECIMENOrdering Facility: [facility] Address: [address] [place] [address] Result Comment: The [place] Diabetes Association (ADA) provides guidance for cutoff values for fasting glucose and random glucose. The ADA defines fasting as no caloric intake for at least 8 hours. Fasting plasma glucose results between 100 to 125 mg/dL indicate increased risk for diabetes (prediabetes). Fasting plasma glucose results greater than or equal to 126 mg/dL meet the criteria for diagnosis of diabetes. In the absence of unequivocal hyperglycemia, results should be confirmed by repeat testing. In a patient with classic symptoms of hyperglycemia or hyperglycemic crisis, random plasma glucose results greater than or equal to 200 mg/dL meet the criteria for diagnosis of diabetes. Reference: Standards of Medical Care in Diabetes 2016, [place] [employer] Association. Diabetes Care. 2016.39(Suppl 1). Performed By: #### 2 4323-8, 29471-7, 39621-2, 2275-4 ####[facility] LABIA [id number] [place] [id number] [place] Potassium [Moles/Vol] 4.5 mmol/L Normal 3.7-5.1 [facility] Comment on above: Order Comment: Speci men Type: BLOOD SPECIMENOrdering Facility: [facility] Address: [address] [place] [address] Performed By: #### 2 4323-8, 12648-8, , 4 ####[facility] LABIA [id number] [place] [id number] [place] Protein [Mass/Vol] 7.0 g/dL Normal 6.3-8.0 [facility] Comment on above: Order Comment: Speci men Type: BLOOD SPECIMENOrdering Facility: [facility] Address: [address] [place], [place] [address] Performed By: #### 2 4323-8, 49105-5, 11108-5, 4 ####[facility] LABIA [id number] [place] [id number] [place] Sodium [Moles/Vol] 139 mmol/L Normal 136-144 [facility] Comment on above: Order Comment: Speci men Type: BLOOD SPECIMENOrdering Facility: [facility] Address: [address] [place] [address] Performed By: #### 2 4323-8, 54929-5, 31443-3, 2275-4 ####[facility] LABCLIA [id number] [place] [address] [place] Urea nitrogen [Mass/Vol] 26 mg/dL High 7-21 [facility] Comment on above: Order Comment: Speci men Type: BLOOD SPECIMENOrdering Facility: [facility] Address: [address] [place] [address] Performed By: #### 2 4323-8, 67475-7, 02243-5, 2275-4 ####[facility] LABCLIA [id number] [place] [address] [place] [facility] Ferritin [Mass/Vol] 130.0 ng/mL Normal 14.7-205.1 [facility] Comment on above: Order Comment: Speci men Type: BLOOD SPECIMENOrdering Facility: [facility] Address: [address] [place] [address] Performed By: #### 2 4323-8, 65322-2, 96023-5, 4 ####[facility] LABCLIA [id number] [place] [address] [place] Iron and Iron binding capaci panelon 06-24-2024 Iron [Mass/Vol] 78 ug/dL Normal 41-186 [facility] Comment on above: Order Comment: Speci men Type: BLOOD SPECIMENOrdering Facility: [facility] Address: [address] [place] [address] Performed By: #### 2 4323-8, 94868-3, 67852-4, 4 ####[facility] LABCLIA [id number] [place] [address] [place] Iron binding capacity [Mass/Vol] 283 ug/dL Normal 232-386 [facility] Comment on above: Order Comment: Speci men Type: BLOOD SPECIMENOrdering Facility: [facility] Address: [address] [place], [place] [address] Performed By: #### 2 4323-8, 71588-6, 02339-6, 2275-4 ####[facility] LABIA [id number] [place] [id number] [place] Iron/TIBC [Molar ratio] 27.6 % Normal 15.0-57.0 [facility] Comment on above: Order Comment: Speci men Type: BLOOD SPECIMENOrdering Facility: [facility] Address: [address] [place] [address] Performed By: #### 2 4323-8, 59182-2, 68808-9, 4 ####[facility] [id number] [place] [id number] [place] Magnesium [facility] 06-24 Magnesium [Mass/Vol] 2.2 mg/dL Normal 1.7-2.3 [facility] Comment on above: Order Comment: Speci men Type: BLOOD SPECIMENOrdering Facility: [facility] Address: [address] [place] [address] Performed By: #### 2 4323-8, 84426-2, , 4 ####[facility] [id number] [place] [id number] [place] VITAMIN D 25 HYDROXYon 06-24 25-hydroxyvitamin D3 [Mass/Vol] 92.3 ng/mL High 31.0 - 80.0 ng/mL [facility] Comment on above: Classification of 25 [place] Vitamin D status: Deficiency/Insufficiency: < or = 30 ng/ml. Sufficiency/Optimal Levels: 31-80 ng/mL Toxicity: > 100 ng/mL. Test performed by chemiluminescent immunoassay. Vit B12 SerPl-mCncon 025 Cobalamin (Vitamin B12) [Mass/Vol] 1083 pg/mL Normal 232-1245 [facility] Comment on above: Order Comment: Speci men Type: BLOOD SPECIMENOrdering Facility: [facility] Address: [address] [place] [address] Performed By: #### 2 132-9 ####[facility] LABCLIA [id number] [facility] [id number] [id number] [place] XR TIBIA FIBULA 2V AP/LAT LT on 06-24-2024 XR TIBIA FIBULA 2V AP/LAT LT * * *Final Report* * * DATE OF EXAM: Jun 24 2024 12:18PM WOX 5265 - XR TIBIA FIBULA 2V AP/LAT LT / PROCEDURE REASON: multiple diagnoses * * * * Physician Interpretation * * * * Left tibia-fibula HISTORY: 84 years old Clinical information: Left leg pain Leg cramp Pain and cramping in lateral mid left tib-fib. No known injury. TECHNIQUE: Images: XR TIBIA FIBULA 2V AP/LAT LT Comparison: None. RESULT: Findings: No fracture or dislocation is evident. IMPRESSION: No acute bony finding. 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 [address] Carotid Duplex Ultrasound 04/29/24 0921 MR#: [id number] Acct: [id number] Name: LISETTE ENAMORADO Rep #: [id number] : 1940 83 From: Edu Caceres MD Attending Dr: Dr. Edu Caceres MD Status: REG Robbi VERA Ordering Dr: Edu Caceres MD Date: 04/29/24 Location: [facility] Sex: F C Admitted: Reason For Study: CAROTID STENOSIS Rt. Velocities/BP Lt. Velocities/BP Prox CCA 78.0/12.8 cm/sec. Prox CCA 96.5/17.9 cm/sec. Mid CCA 79.0/12.8 cm/sec. Mid CCA 127.1/28.5 cm/sec. Dist CCA 76.1/13.8 cm/sec. Dist CCA 107.0/21.2 cm/sec. Prox ICA 84.6/10.9 cm/sec. Prox ICA 247.6/37.5 cm/sec. Mid ICA 97.6/15.9 cm/sec. Mid ICA 131.3/16.3 cm/sec. Dist ICA 165.3/22.6 cm/sec. Dist ICA 107.6/32.7 cm/sec. Rt. ICA/CCA = 165.3/79.0=2.1. Lt. ICA/CCA = 247.6/127.1=1.9. Prox ECA 116.2/4.4 cm/sec. Prox ECA 213.0/9.4 cm/sec. Rt. Vert. 36.5/10.0 cm/sec. Lt. Vert. 50.8/15.6 cm/sec. Right Extracranial There is heterogeneous, irregular atherosclerotic plaque noted in the right common carotid artery. There is heterogeneous, irregular atherosclerotic plaque noted in the right internal carotid artery. The tortuous nature of the right internal carotid artery may result in flow velocities overestimating the degree of stenosis. There is intimal thickening but no significant atherosclerotic plaque noted in the right external carotid artery. Antegrade flow is noted in the right vertebral artery. Left Extracranial There is heterogeneous, irregular atherosclerotic plaque noted in the left common carotid artery. There is heterogeneous, irregular atherosclerotic plaque noted in the left internal carotid artery. The tortuous nature of the left internal carotid artery may result in flow velocities overestimating the degree of stenosis. There is heterogeneous, irregular atherosclerotic plaque noted in the left external carotid artery. Antegrade flow is noted in the left vertebral artery. Procedure Carotid Duplex 78188. This is a Carotid Duplex examination using B-mode, color flow and specral Doppler. Exam performed in department. VL/Carotid Duplex Ultrasound Interpretation Summary Moderate (50-69%) stenosis right extracranial internal carotid. Severe (>70%) stenosis left extracranial internal carotid. Patent and antegrade vertebrals bilaterally. Ordering Physician: Edu Caceres Referring Physician: Lisa Peter Performed By: Karishma Holland, MIKHAIL, RVT 04/29/241808 Date Edu Caceres MD CC: Dr. Lisa Peter MD; Dr. Edu Caceres MD Date Dictated: 04/29/24920 Date Transcribed: 04/29/241808 Sheet Metal Fabricator: Signed Normal [facility] Basic Metabolic Profile (BMP )on 04-07-2024 BUN/CRE 19.3 RATIO Normal 03-30 [facility] Comment on above: Order Comment: 1Y Performed By: #### L 100.0100, L500.2500, L501.5425 ####[facility] [address] [place], [address] CA,Total 8.6 mg/dL Normal 8.5-10.1 [facility] Comment on above: Order Comment: 1Y Performed By: #### L 100.0100, L500.2500, L501.5425 ####[facility] [address] [place], [address] Chloride [Moles/Vol] 110 mmol/L High 98-107 [facility] Comment on above: Order Comment: 1Y Performed By: #### L 100.0100, L500.2500, L501.5425 ####[facility] [address] [place], [address] CO2 [Moles/Vol] 25.0 mmol/L Normal 21.0-32.0 [facility] Comment on above: Order Comment: 1Y Performed By: #### L 100.0100, L500.2500, L501.5425 ####[facility] [address] [place], [address] Creatinine [Mass/Vol] 1.14 mg/dL High 0.55-1.02 [facility] Comment on above: Order Comment: 1Y Result Comment: The validity of the calculated GFR GFRAA in patients over 70 years has not been determined. Clinical correlation is essential. Performed By: #### L 100.0100, L500.2500, L501.5425 ####[facility] [address] [place], [address] ECRCL 33.14 ml/min Normal [facility] Comment on above: Order Comment: 1Y Performed By: #### L 100.0100, L500.2500, L501.5425 ####[facility] [address] [place], [address] EST GFR - AA 58 mL/min Low >60 [facility] Comment on above: Order Comment: 1Y Result Comment: Afri can [place] GFR Calc Performed By: #### L 100.0100, L500.2500, L501.5425 ####[facility] [address] [place], [address] GAP 7 Normal 5-15 [facility] Comment on above: Order Comment: 1Y Performed By: #### L 100.0100, L500.2500, L501.5425 ####[facility] [address] [place], [address] GFR/1.73 sq M.predicted among non-blacks MDRD (S/P/Bld) [Vol rate/Area] 48 mL/min/{1.73_m2} Low >60 [facility] Comment on above: Order Comment: 1Y Result Comment: Non- GFR Calc Performed By: #### L 100.0100, L500.2500, L501.5425 ####[facility] [address] [place], [address] Glucose [Mass/Vol] 115 mg/dL High 74-106 [facility] Comment on above: Order Comment: 1Y Result Comment: Fast ing Glucose result from 100 to 125 mg/dL suggests IMPAIRED HOMEOSTASIS per A.D.A. criteria. Performed By: #### L 100.0100, L500.2500, L501.5425 ####[facility] [address] [place], [address] Potassium [Moles/Vol] 3.8 mmol/L Normal 3.5-5.1 [facility] Comment on above: Order Comment: 1Y Performed By: #### L 100.0100, L500.2500, L501.5425 ####[facility] [address] [place], [address] Sodium [Moles/Vol] 142 mmol/L Normal 136-145 [facility] Comment on above: Order Comment: 1Y Performed By: #### L 100.0100, L500.2500, L501.5425 ####[facility] [address] [place], [address] Urea nitrogen [Mass/Vol] 22 mg/dL High 7-18 [facility] Comment on above: Order Comment: 1Y Performed By: #### L 100.0100, L500.2500, L501.5425 ####[facility] [address] [place], [address] CBC W/Diff, Automatedon 10-2 Absolute Lymph 1.85 X10 3/uL Normal 0.83-4.51 [facility] Comment on above: Performed By: #### L 100.0100, L500.2500, L501.5425 #### [facility] [address] [place], [address] Absolute Neut 3.3 X10 3/uL Normal 2.0-7.7 [facility] Comment on above: Performed By: #### L 100.0100, L500.2500, L501.5425 #### [facility] [address] [place], [address] Basophils/100 WBC (Bld) 1.0 % Normal 0-1 [facility] Comment on above: Performed By: #### L 100.0100, L500.2500, L501.5425 #### [facility] [address] [place], [address] Eosinophils/100 WBC (Bld) 3.4 % Normal 0-5 [facility] Comment on above: Performed By: #### L 100.0100, L500.2500, L501.5425 #### [facility] [address] [place], [address] Erythrocyte distribution width (RBC) [Ratio] 13.4 % Normal 11.6-14.6 [facility] Comment on above: Performed By: #### L 100.0100, L500.2500, L501.5425 #### [facility] [address] [place], [address] Hematocrit (Bld) [Volume fraction] 36.2 % Low 37-47 [facility] Comment on above: Performed By: #### L 100.0100, L500.2500, L501.5425 #### [facility] [address] [place], [address] Hemoglobin (Bld) [Mass/Vol] 12.3 g/dL Normal 12.0-15.0 [facility] Comment on above: Performed By: #### L 100.0100, L500.2500, L501.5425 #### [facility] [address] [place], [address] IG% 0.500 Normal 0.0-0.9 [facility] Comment on above: Result Comment: IG% - Immature Granulocytes (promyelocytes, myelocytes and metamyelocytes) > 1% indicates that a LEFT SHIFT is Present. Performed By: #### L 100.0100, L500.2500, L501.5425 #### [facility] [address] [place], [address] Lymphocytes/100 WBC (Bld) 31.6 % Normal 19-41 [facility] Comment on above: Performed By: #### L 100.0100, L500.2500, L501.5425 #### [facility] [address] [place], [address] MCH (RBC) [Entitic mass] 28.9 pg Normal 27.0-32.0 [facility] Comment on above: Performed By: #### L 100.0100, L500.2500, L501.5425 #### [facility] [address] [place], [address] MCHC (RBC) [Mass/Vol] 34.0 g/dL Normal 32-36 [facility] Comment on above: Performed By: #### L 100.0100, L500.2500, L501.5425 #### [facility] [address] [place], [address] MCV (RBC) [Entitic vol] 85.2 fL Normal 81-99 [facility] Comment on above: Performed By: #### L 100.0100, L500.2500, L501.5425 #### [facility] [address] [place], [address] Monocytes/100 WBC (Bld) 7.8 % Normal 0-10 [facility] Comment on above: Performed By: #### L 100.0100, L500.2500, L501.5425 #### [facility] [address] [place], [address] Neutrophils/100 WBC (Bld) 55.7 % Normal 47-70 [facility] Comment on above: Performed By: #### L 100.0100, L500.2500, L501.5425 #### [facility] [address] [place], [address] Nucleated RBC (Bld) [#/Vol] 0 10*3/uL Normal 0-5 [facility] Comment on above: Performed By: #### L 100.0100, L500.2500, L501.5425 #### [facility] [address] [place], [address] Platelet mean volume (Bld) [Entitic vol] 10.5 fL Normal 6.2-12.0 [facility] Comment on above: Performed By: #### L 100.0100, L500.2500, L501.5425 #### [facility] [address] [place], [address] Platelets (Bld) [#/Vol] 232 10*3/uL Normal 150-450 [facility] Comment on above: Performed By: #### L 100.0100, L500.2500, L501.5425 #### [facility] [address] [place], [address] RBC (Bld) [#/Vol] 4.25 10*6/uL Normal 4.2-5.4 [facility] Comment on above: Performed By: #### L 100.0100, L500.2500, L501.5425 #### [facility] [address] [place], [address] RDW SD 41.8 fl Normal 35.1-43.9 [facility] Comment on above: Performed By: #### L 100.0100, L500.2500, L501.5425 #### [facility] [address] [place], [address] WBC (Bld) [#/Vol] 5.9 10*3/uL Normal 4.4-11.0 [facility] Comment on above: Performed By: #### L 100.0100, L500.2500, L501.5425 #### [facility] [address] [place], [address] Chest 1 View (Portable)on Chest 1 View (Portable) [facility] Imaging Services [address] [place] [address] Chest 1 View (Portable) MR#: [id number] Acct: [id number] Name: LISETTE ENAMORADO Rep #: [id number] : 1940 F 83 From: Ronal del valle MD PCP: Dr. Lisa Peter MD Status: PRE ER Study: Chest 1 View (Portable) Date of Exam: 04/07/24 Exam# [id number] Ordering Dr: Maynor Carlson. [id number] STUDY: X-RAY CHEST REASON FOR EXAM: Female, 83 years old. Chest pain TECHNIQUE: Single AP portable view of the chest. COMPARISON: Comparison is made with prior study May 31, 2020. FINDINGS: EKG electrodes are seen. Hyperinflation. The lungs are clear. There is no demonstrated pleural abnormality. Evidence of prior coronary artery stenting. Normal mediastinum and eric. Normal visualized pulmonary arteries. There is atherosclerotic calcification of the aortic arch with tortuosity. There are diffuse degenerative changes of the visualized thoracic spine. Normal visualized ribs, clavicles, and shoulders. There is no demonstrated abnormality of the visualized soft tissue structures of the upper abdomen. RAD/Chest 1 View (Portable) IMPRESSION: Hyperinflation. No acute abnormality is seen. Electronically Signed: Ronal Day MD at 13:02 EDT , CC: Dr. 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 Lisa Peter MD Status:REG ER Location: ED HPI History of Present Illness Chief Complaint: Chest Pain Informant: patient Narrative Narrative: 83-year-old female presents for an episode of chest discomfort that started yesterday. She has had no symptoms today. She states she walked a mile and she had no problems. Then at home she was resting and she developed some discomfort substernal and heaviness/aching in both of her arms. She states that she was just sitting or resting when this occurred. She remembers drinking some water and taking a nitro and then going to bed. When she woke up this morning she felt fine. She is here in the ER because she tried to call the heart group, as she follows with Dr. zarate, and she states that she could not get through to a person, then apparently they return to call her back but her phone would not work and then the police showed up at her house to make sure she was okay and brought her to the ER. She has a history of 5 stents and is compliant with her medications which includes Brilinta. She does admit to having some intermittent claudication and states sometimes she gets cramping in her legs even when she is not walking or exerting herself and is lying in bed. She describes it being in the lateral calf and the thigh. [facility] Medical History Stenosis of left carotid artery Essential (primary) hypertension Pure hypercholesterolemia Atherosclerosis of [place] coronary artery of [place] heart without angina pectoris Intermittent claudication Home Medications ???Medication ???Instructions ???Recorded ???Last Taken ???Type calcium carbonate 500 mg PO BIDCM supplement 05/21/19 05/21/19 History cholecalciferol (vitamin D3) 25 1,000 unit PO DAILY supplement 05/21/19 05/21/19 History mcg (1,000 unit) tablet multivitamin 1 tab PO DAILY 05/03/21 Unknown History esomeprazole magnesium 40 mg 40 mg PO DAILY 05/17/22 Unknown History capsule,delayed release aspirin 81 mg tablet,delayed 81 mg PO DAILY #90 tabs 08/16/22 Unknown Rx release colestipol 1 gram tablet 1 g PO BID #180 tabs 08/16/22 Unknown Rx ezetimibe 10 mg tablet See Rx Instructions .Route 08/16/22 Unknown Rx .COMPLEX #90 TABLETS nitroglycerin 0.4 mg sublingual 0.4 mg sublingual Q5M PRN Chest 08/16/22 Unknown Rx tablet Pain #25 tabs metoprolol tartrate 50 mg tablet 50 mg PO BID #180 tabs 10/17/23 Unknown Rx levothyroxine 75 mcg tablet 75 mcg PO DAILY thyroid #90 tabs 10/31/23 Unknown Rx amlodipine 5 mg tablet 5 mg PO DAILY #90 tabs 11/01/23 Unknown Rx ticagrelor 90 mg tablet (Brilinta) 90 mg PO BID 04/07/24 Unknown History Allergy/AdvReac Type Severity Reaction Status Date / Time DEIRDRE Inhibitors Allergy Unknown Verified 04/07/24 11:36 ARB-Angiotensin Receptor Allergy Unknown Verified 04/07/24 11:36 Antagonist lisinopril AdvReac Intermediate Other Verified 04/07/24 11:36 atorvastatin calcium (From AdvReac Mild Unknown Verified 04/07/24 11:36 Lipitor) pravastatin (From Pravachol) AdvReac Mild Unknown Verified 04/07/24 11:36 Family History Mother CAD (coronary artery disease) Grandmother CAD (coronary artery disease) Surgical History History of appendectomy History of coronary artery stent placement (05/22/19) History of left heart catheterization (08/13/17) History of tonsillectomy Social History household members: none Smoking Status: Never smoker alcohol intake: never substance use type: does not use caffeine: No ROS ROS ED Constitutional Constitutional ED: Denies chills or fever(s) Eyes Eyes: Denies change in vision or diplopia ENT ENT ED: Denies rhinorrhea or sore throat Cardiovascular Cardiovascular: Reports as per HPI and chest pain; Denies palpitations Respiratory/Chest Respiratory/Chest: Denies cough or dyspnea Gastrointestinal Gastrointestinal: Denies abdominal pain, diarrhea, nausea or vomiting Genitourinary Genitourinary ED: Denies dysuria or hematuria Musculoskeletal Musculoskeletal: Reports other Details: Intermittent claudication see HPI ; Denies back pain or neck pain Integumentary Denies abscess or rash Neurologic Neurologic: Denies headache(s), paresthesias or weakness Psychiatric Psychiatric: Denies anxiety or suicidal thoughts EXAM Physical Exam Const Vital Signs: 04/07/24 11:29 04/07/24 11:40 10 (more content not included)... Normal [facility] L501.4020on 04-07-2024 TROPONIN-I HS 9 pg/mL Normal 3.0-54.0 [facility] Comment on above: Result Comment: Plea se Note: New Test Units and Gender Specific Reference Ranges. For more information see Policy Stat Procedure [place] High Sensitivity Troponin (TNIH) and attachments. Performed By: #### L 501.4020 ####[facility] [facility] [address] [place], [address] L501.5425on 04-07-2024 TROPONIN-I HS 7 pg/mL Normal 3.0-54.0 [facility] Comment on above: Order Comment: 1Y Result Comment: Plea se Note: New Test Units and Gender Specific Reference Ranges. For more information see Policy Stat Procedure [place] High Sensitivity Troponin (TNIH) and attachments. Performed By: #### L 100.0100, L500.2500, L501.5425 ####[facility] [address] [place], [place], [address] CNOVon 03-11-2024 CNOV Office Visit (FAMPWS ) -------- LISETTE ENAMORADO ([id number]) 1940 F Date Time Provider Department 03/11/24 9:00 AM ERIC LOCKETT During your visit today, we recorded the following information about you: Temperature Pulse Respiration Blood pressure 97.8 degrees 66/minute 12/minute 120/70 Weight Height 65.3 kg 1.575 m Eric Lockett PA-C 03/20/2024 7:54 AM Signed 03/11/2024 Patient presents with: Follow Up: c/o fatigue and depression SUBJECTIVE: This is a 83 year old that is here today for follow up fatigue and depression. Patient tells me she is doing better today. Her abdominal pain has completely resolved. 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 Her . They used to travel together. Her friends are mostly all still with living spouses and travel together. Her children both live out of state. She stays active with a park her and her took over, but it's getting ot be a lot of work. She goes to [employer] and other groups. However, she still wishes she had companionship and someone to help with decisions. Denies any SI/HI, plan, intent, attempt. She does not feel she needs medication at this time. PAST MEDICAL HISTORY Diagnosis Date Coronary artery disease Diarrhea Generalized anxiety disorder Generalized osteoarthrosis, unspecified site lumbar and c-spine Hematochezia 03/31/2021 Incomplete bladder emptying 05/11/2005 Irritable bowel syndrome Pure hypercholesterolemia Thyroid disease Unspecified essential hypertension ALLERGIES Ditropan [Oxybutynin Chloride] and Lisinopril MEDICATIONS Current Outpatient Medications Medication Sig ketoconazole (NIZORAL) 2 % cream Apply 1 application to affected area two times a day. colestipol (COLESTID) 1 gram tablet Take 1 tablet by mouth two times a day. Dr. Zarate colestipol (COLESTID) 1 gram tablet Take 1 tablet by mouth two times a day. Dr. Zarate nystatin (MYCOSTATIN) cream Apply to affected area two times a day. Continue for 1 week after rash resolves docusate sodium (COLACE) 100 mg capsule Take 1 capsule by mouth two times a day as needed for constipation. acetaminophen (TYLENOL EXTRA STRENGTH) 500 mg tablet Take 1 tablet by mouth every 6 hours as needed for pain. Take this or the hydrocodone/acetaminophe n every 6 hours as needed for pain ticagrelor (BRILINTA) 90 mg tablet Take 1 tablet by mouth two times a day. (Patient not taking: Reported on 12/07/2023) ezetimibe (ZETIA) 10 mg tablet Take 1 tablet by mouth once daily. levothyroxine (SYNTHROID) 75 mcg tablet Take 1 tablet by mouth daily before breakfast. esomeprazole (NEXIUM) 40 mg capsule Take 1 capsule by mouth daily before breakfast. trospium (SANCTURA) 20 mg tablet Take 1 tablet by mouth once daily. amLODIPine (NORVASC) 5 mg tablet Take 1 tablet by mouth once daily. metoprolol tartrate, short acting, (LOPRESSOR) 50 mg tablet Take 1 tablet by mouth three times daily. cyclobenzaprine (FLEXERIL) 10 mg tablet Take 0.5 tablets by mouth three times daily as needed for muscle spasm or pain. (Patient not taking: Reported on 08/27/2023) cholecalciferol, vitamin D3, 4,000 unit cap Take 1 Dose by mouth once daily. Aspirin 81 mg Tab Take 1 tablet by mouth once daily. Take with food. No current facility-administered medications for this visit. SOCIAL HISTORY Social History Tobacco Use Smoking status: Never Smokeless tobacco: Never Vaping Use Vaping status: Never Used Substance Use Topics Alcohol use: Yes Comment: rare glass of wine Drug use: No REVIEW OF SYSTEMS See HPI OBJECTIVE: BP 120/70 (BP Site: Left Arm, BP Position: Sitting, BP Cuff Size: Regular Adult) Pulse 66 Temp 36.6 ?C (97.8 ?F) Resp 12 Ht 157.5 cm (5' 2) Wt 65.3 kg (144 lb) SpO2 97% BMI 26.34 kg/m? APPEARANCE Well appearing, alert, in no acute distress, well-hydrated, well nourished. ABDOMEN soft, non-tender, non-distended, without organomegaly or palpable masses, no tenderness to palpation ASSESSMENT/PLAN: 1. Situational depression - ICD9: 309.0, ICD10: F43.21 Discussed medication options. Will wait at this time She will continue to stay active and involved. Discussed counseling, prefers to wait. I spent 35 minutes in this visit with patient. I spent 35 minutes in the visit, with more than 50% of the total [id number] time of the visit in counseling / coordination of care. The patient indicates understanding of these issues and agrees with the plan. Reviewed red flags and when to seek care sooner. Eric Lockett PA-C Allergies As of Date: 03/11/2024 Noted Allergy Reaction DITROPAN (OXYBUTYNIN CHLORIDE) 02/24/2019 8 - GI Upset LISINOPRIL 06/30/2011 3 - Cough Date Reviewed: 03/11/2024 Reviewed by: Kirit Matamoros LPN - Fully Assessed Reason for Visit: Follow Up [171] Cmt: c/o fatigue and d (more content not included)... Normal [facility] LISETTE ENAMORADO ([id number]) 1940 F Date Time Provider Department 03/11/24 LISA PETER INTWS During your visit today, we recorded the following information about you: Talita Khan, RN 03/11/2024 2:00 PM Signed Patient states her current Colestipol medication lasts her only 45 days. She is requesting a 90 day supply. Asking if provider would send new script to [facility] mail order. Order pended. No call back needed to patient if provider agreeable to send Rx. Thank you. Jillian Wray APRN.EXHIBIT SPECIALIST 03/12/2024 7:58 AM Signed Already addressed in other encounter. Jillian Wray APRN.HAM Allergies As of Date: 03/11/2024 Noted Allergy Reaction DITROPAN (OXYBUTYNIN CHLORIDE) 02/24/2019 8 - GI Upset LISINOPRIL 06/30/2011 3 - Cough Date Reviewed: 03/11/2024 Reviewed by: Kirit Matamoros LPN - Fully Assessed Reason for Visit: Patient Request [[id number]] Prescriptions as of 03/12/2024 - colestipol (COLESTID) 1 gram tablet Take 1 tablet by mouth two times a day. - ketoconazole (NIZORAL) 2 % cream Apply 1 application to affected area two times a day. - colestipol (COLESTID) 1 gram tablet Take 1 tablet by mouth two times a day. Dr. Zarate - nystatin (MYCOSTATIN) cream Apply to affected area two times a day. Continue for 1 week after rash resolves - docusate sodium (COLACE) 100 mg capsule Take 1 capsule by mouth two times a day as needed for constipation. - acetaminophen (TYLENOL EXTRA STRENGTH) 500 mg tablet Take 1 tablet by mouth every 6 hours as needed for pain. Take this or the hydrocodone/acetaminophe n every 6 hours as needed for pain - ticagrelor (BRILINTA) 90 mg tablet Take 1 tablet by mouth two times a day. - ezetimibe (ZETIA) 10 mg tablet Take 1 tablet by mouth once daily. - levothyroxine (SYNTHROID) 75 mcg tablet Take 1 tablet by mouth daily before breakfast. - esomeprazole (NEXIUM) 40 mg capsule Take 1 capsule by mouth daily before breakfast. - trospium (SANCTURA) 20 mg tablet Take 1 tablet by mouth once daily. - amLODIPine (NORVASC) 5 mg tablet Take 1 tablet by mouth once daily. - metoprolol tartrate, short acting, (LOPRESSOR) 50 mg tablet Take 1 tablet by mouth three times daily. - cyclobenzaprine (FLEXERIL) 10 mg tablet Take 0.5 tablets by mouth three times daily as needed for muscle spasm or pain. - cholecalciferol, vitamin D3, 4,000 unit cap Take 1 Dose by mouth once daily. - Aspirin 81 mg Tab Take 1 tablet by mouth once daily. Take with food. Problem List As Of Date 03/11/2024 Noted Resolved INCOMPLETE BLADDER EMPTYING [R33.9] 05/11/2005 Essential hypertension [I10] History of IBS [Z87.19] GENERALIZED ANXIETY DIS [F41.1] GENERAL OSTEOARTHROSIS [M15.9] RETENTION OF URINE UNSPEC [R33.9] 08/22/2005 CERVICALGIA [M54.2] 07/24/2006 DIARRHEA NOS [R19.7] 06/16/2008 DIVERTICULOSIS OF COLON W/O BLEED [K57.30] 06/16/2008 Bilateral carotid artery stenosis [I65.23] 06/10/2009 Coronary artery disease involving [place]*01/20/2010 Unspecified Myalgia and Myositis [HVO7123] 02/28/2010 Sleep apnea [G47.30] 10/18/2011 Onychia and [...] with chronic kidney*10/26/2021 Hiatal hernia [K44.9] 07/25/2022 Lung nodule [R91.1] 02/01/2023 Incontinence of feces [R15.9] 03/20/2023 Encounter Status:Closed by JILLIAN WRAY on 03/12/24 Normal [facility] CNOVon 03-04-2024 CNOV Office Visit (FAMPWS ) -------- LISETTE ENAMORADO ([id number]) 1940 F Date Time Provider Department 03/04/24 2:40 PM ERIC LOCKETT During your visit today, we recorded the following information about you: Pulse Respiration Blood pressure Weight 87/minute 14/minute 136/62 66.2 kg Height 1.575 m Eric Lockett PA-C 03/05/2024 9:13 AM Signed 03/04/2024 Patient presents with: Same Day Appointment: cramps prior to bowel movements, stool black in past SUBJECTIVE: This is a 83 year old that is here today for Complaint(s) of cramping prior to BMs in the lower abdomen , mostly LLQ. States she had this 1 year ago, diagnosed with colitis per patient, but it resolved. Had black stools in past. Notes she has small, ball like BM, constipated. No blood in stools or black and tarry stools. Pain only comes right before a BM. Overall feels slightly uncomfortable. Last BM today, small, hard. Has metamucil but hasn't been using. No previous history of diverticular disease. Last colonoscopy 2 years ago, normal. Denies fever/chills, vomiting, dysuria, hematuria, chest pain, SOB, cough. Also mentions a rash on lower abdomen in skin fold and groin region that is itchy. PAST MEDICAL HISTORY Diagnosis Date Coronary artery disease Diarrhea Generalized anxiety disorder Generalized osteoarthrosis, unspecified site lumbar and c-spine Hematochezia 03/31/2021 Incomplete bladder emptying 05/11/2005 Irritable bowel syndrome Pure hypercholesterolemia Thyroid disease Unspecified essential hypertension ALLERGIES Ditropan [Oxybutynin Chloride] and Lisinopril MEDICATIONS Current Outpatient Medications Medication Sig colestipol (COLESTID) 1 gram tablet Take 1 tablet by mouth two times a day. Dr. Zarate colestipol (COLESTID) 1 gram tablet Take 1 tablet by mouth two times a day. Dr. Zarate nystatin (MYCOSTATIN) cream Apply to affected area two times a day. Continue for 1 week after rash resolves docusate sodium (COLACE) 100 mg capsule Take 1 capsule by mouth two times a day as needed for constipation. acetaminophen (TYLENOL EXTRA STRENGTH) 500 mg tablet Take 1 tablet by mouth every 6 hours as needed for pain. Take this or the hydrocodone/acetaminophe n every 6 hours as needed for pain ticagrelor (BRILINTA) 90 mg tablet Take 1 tablet by mouth two times a day. (Patient not taking: Reported on 12/07/2023) ezetimibe (ZETIA) 10 mg tablet Take 1 tablet by mouth once daily. levothyroxine (SYNTHROID) 75 mcg tablet Take 1 tablet by mouth daily before breakfast. esomeprazole (NEXIUM) 40 mg capsule Take 1 capsule by mouth daily before breakfast. trospium (SANCTURA) 20 mg tablet Take 1 tablet by mouth once daily. amLODIPine (NORVASC) 5 mg tablet Take 1 tablet by mouth once daily. metoprolol tartrate, short acting, (LOPRESSOR) 50 mg tablet Take 1 tablet by mouth three times daily. cyclobenzaprine (FLEXERIL) 10 mg tablet Take 0.5 tablets by mouth three times daily as needed for muscle spasm or pain. (Patient not taking: Reported on 08/27/2023) cholecalciferol, vitamin D3, 4,000 unit cap Take 1 Dose by mouth once daily. Aspirin 81 mg Tab Take 1 tablet by mouth once daily. Take with food. No current facility-administered medications for this visit. SOCIAL HISTORY Social History Tobacco Use Smoking status: Never Smokeless tobacco: Never Vaping Use Vaping status: Never Used Substance Use Topics Alcohol use: Yes Comment: rare glass of wine Drug use: No REVIEW OF SYSTEMS See HPI OBJECTIVE: BP 136/62 (BP Site: Left Arm, BP Position: Sitting, BP Cuff Size: Regular Adult) Pulse 87 Resp 14 Ht 157.5 cm (5' 2) Wt 66.2 kg (146 lb) SpO2 98% BMI 26.70 kg/m? APPEARANCE Well appearing, alert, in no acute distress, well-hydrated, well nourished. NECK Supple, no adenopathy; thyroid symmetric, normal size, no bruits HEART RRR with normal S1 and S2, no murmurs, no gallops, no JVD appreciated LUNG clear to auscultation ABDOMEN bowel sounds normoactive, no bruits, soft, non-tender, non-distended, without organomegaly or palpable masses, no tenderness to palpation BACK: Normal exam Skin: red well demarcated eruption with numerous pinpoint satellite papules/pustules lower abdomen waistline. ASSESSMENT/PLAN: 1. Acute constipation - ICD9: 564.00, ICD10: K59.00 (primary diagnosis) Suspect likely constipation Trial of metamucil daily with plenty of water Colace daily Miralax until stools are soft. 2. Left lower quadrant abdominal pain - ICD9: 789.04, ICD10: R10.32 Suspect constipation, consider diverticular disease-ordered CT, patient prefers to try constipation treatment for the next couple days first. I think this is reasonable. If worsening -schedule CT same day. Trial of increased liquids, bland/liquid diet. Reviewed red flags and when to seek care sooner in ED including fever (more content not included)... Normal [facility] CREATININE BLDon 03-04-2024 Creatinine [Mass/Vol] 1.24 mg/dL High 0.58-0.96 [facility] Comment on above: Order Comment: Speci daniel Type: BLOOD SPECIMENOrdering Facility: [facility] Address: [address] [place] [address] Performed By: #### C RET1 ####[facility] LABCLIA [id number] [place] [address] [place] Creatinine and Glomerular filtration rate.predicted panel (S/P/Bld) 43 mL/min/1.73m??? Low >=60 [facility] Comment on above: Order Comment: Specgisele sanchez Type: BLOOD SPECIMENOrdering Facility: [facility] Address: [address] [place] [address] Result Comment: Ashley mated Glomerular Filtration Rate (eGFR) is calculated using the 2020 CKD-EPI creatinine equation. This equation utilizes serum creatinine, sex, and age as parameters. The creatinine assay has traceable calibration to isotope dilution-mass spectrometry. Refer to KDIGO guidelines for clinical interpretation. In patients with unstable renal function, e.g. those with acute kidney injury, the eGFR may not accurately reflect actual GFR. Performed By: #### C RET1 ####[facility] LABCLIA [id number] [place] [id number] [place] CNOVon 12-07-2023 CNOV Office Visit (INTMWS ) -------- LISETTE ENAMORADO ([id number]) 1940 F Date Time Provider Department 12/07/23 2:40 PM ALBER MAX INTMWS During your visit today, we recorded the following information about you: Temperature Pulse Respiration Blood pressure 98.1 degrees 72/minute 18/minute 122/68 Weight 64.9 kg Alber Max MD 01/10/2024 12:43 AM Signed This note was created using [employer]. Subjective Lisette Enamorado is a 83 year old female. Patient presents with: Same Day Appointment: Diarrhea since last evening and starting to experience other symptoms SUBJECTIVE: Lisette Enamorado is a 83 year old year old lady here today for follow up appointment for review of medical conditions: diarrhea and rectum sore with bleeding from rectal irritation. Vaseline was a bit irritating. Stomach upset a little bit ago. Has not tried Imodium yet. To get on plane 6AM so will be picked up 4AM. At least 10 to12 BMs since last night. Every time gets up to walk, has to have BM. Last BM was 2 hours ago. Soft stools, not watery. No blood in the stools. No change in diet Dinner was eating out at a meeting at the [employer]. Hot dog, macaroni salad (barely a spoonful). baked beans. PAST MEDICAL HISTORY Diagnosis Date Coronary artery disease Diarrhea Generalized anxiety disorder Generalized osteoarthrosis, unspecified site lumbar and c-spine Hematochezia 03/31/2021 Incomplete bladder emptying 05/11/2005 Irritable bowel syndrome Pure hypercholesterolemia Thyroid disease Unspecified essential hypertension Current Outpatient Medications Medication Sig docusate sodium (COLACE) 100 mg capsule Take 1 capsule by mouth two times a day as needed for constipation. acetaminophen (TYLENOL EXTRA STRENGTH) 500 mg tablet Take 1 tablet by mouth every 6 hours as needed for pain. Take this or the hydrocodone/acetaminophe n every 6 hours as needed for pain colestipol (COLESTID) 1 gram tablet Take 1 tablet by mouth two times a day. Dr. Zarate ezetimibe (ZETIA) 10 mg tablet Take 1 tablet by mouth once daily. levothyroxine (SYNTHROID) 75 mcg tablet Take 1 tablet by mouth daily before breakfast. esomeprazole (NEXIUM) 40 mg capsule Take 1 capsule by mouth daily before breakfast. amLODIPine (NORVASC) 5 mg tablet Take 1 tablet by mouth once daily. metoprolol tartrate, short acting, (LOPRESSOR) 50 mg tablet Take 1 tablet by mouth three times daily. cholecalciferol, vitamin D3, 4,000 unit cap Take 1 Dose by mouth once daily. Aspirin 81 mg Tab Take 1 tablet by mouth once daily. Take with food. ticagrelor (BRILINTA) 90 mg tablet Take 1 tablet by mouth two times a day. (Patient not taking: Reported on 12/07/2023) trospium (SANCTURA) 20 mg tablet Take 1 tablet by mouth once daily. cyclobenzaprine (FLEXERIL) 10 mg tablet Take 0.5 tablets by mouth three times daily as needed for muscle spasm or pain. (Patient not taking: Reported on 08/27/2023) No current facility-administered medications for this visit. Review of Systems Objective BP 122/68 Pulse 72 Temp 36.7 ?C (98.1 ?F) Resp 18 Wt 64.9 kg (143 lb) SpO2 99% BMI 26.16 kg/m? Physical Exam Constitutional: Appearance: Normal appearance. HENT: Head: Normocephalic. Eyes: Conjunctiva/sclera: Conjunctivae normal. Cardiovascular: Rate and Rhythm: Normal rate and regular rhythm. Heart sounds: Normal heart sounds. Pulmonary: Effort: Pulmonary effort is normal. Breath sounds: Normal breath sounds. Abdominal: General: Abdomen is flat. Bowel sounds are normal. Palpations: Abdomen is soft. Tenderness: There is no abdominal tenderness. Genitourinary: Comments: Redness around rectal area Skin: General: Skin is warm and dry. Neurological: General: No focal deficit present. Mental Status: She is alert and oriented to person, place, and time. Psychiatric: Mood and Affect: Mood normal. Behavior: Behavior normal. Thought Content: Thought content normal. Judgment: Judgment normal. Assessment and Plan ASSESSMENT/PLAN: 1. Diarrhea, unspecified type - ICD9: 787.91, ICD10: R19.7 (primary diagnosis) Uncertain the cause, but maybe something had eaten last night versus acute viral gastroenteritis. Appears to be resolving. [place] diet, low residual for now; slowly advance as tolerated. Avoid milk products for now and add as tolerated. No persistent or significant bleeding noted 2. Rectal irritation - ICD9: 569.49, ICD10: K62.89 Due to frequent diarrhea. - [place]STATIN 100,000 UNIT/GRAM TOPICAL CREAM May try other topicals as used for diaper rash, such as zinc oxide with petrolatum. Further evaluation and treatment as indicated. MD Cl Candelaria Liza D, MD 12/07/2023 4:03 PM Addendum For bottom: Zinc oxide AANDD ointment Cornstarch powder Imodium after each loose stool up to 4 times a day. May use pr (more content not included)... Normal [facility] Basic Metabolic Profile (BMP )on 12-06-2023 BUN/CRE 28.0 RATIO High 10-20 [facility] Comment on above: Performed By: #### L 500.2500, L100.0100 ####[facility] [address] [place], [address] CA,Total 9.7 mg/dL Normal 8.5-10.1 [facility] Comment on above: Performed By: #### L 500.2500, L100.0100 ####[facility] [address] [place], [address] Chloride [Moles/Vol] 109 mmol/L High 98-107 [facility] Comment on above: Performed By: #### L 500.2500, L100.0100 ####[facility] [address] [place], [address] CO2 [Moles/Vol] 26.0 mmol/L Normal 21.0-32.0 [facility] Comment on above: Performed By: #### L 500.2500, L100.0100 ####[facility] [address] [place], [address] Creatinine [Mass/Vol] 1.18 mg/dL High 0.55-1.02 [facility] Comment on above: Result Comment: The validity of the calculated GFR GFRAA in patients over 70 years has not been determined. Clinical correlation is essential. Performed By: #### L 500.2500, L100.0100 ####[facility] [address] [place], [address] EST GFR - AA 56 mL/min Low >60 [facility] Comment on above: Result Comment: Afri can [place] GFR Calc Performed By: #### L 500.2500, L100.0100 ####[facility] [address] [place], [address] GAP 6 Normal 5-15 [facility] Comment on above: Performed By: #### L 500.2500, L100.0100 ####[facility] [address] [place], [address] GFR/1.73 sq M.predicted among non-blacks MDRD (S/P/Bld) [Vol rate/Area] 46 mL/min/{1.73_m2} Low >60 [facility] Comment on above: Result Comment: Non- GFR Calc Performed By: #### L 500.2500, L100.0100 ####[facility] [address] [place], [address] Glucose [Mass/Vol] 96 mg/dL Normal 74-106 [facility] Comment on above: Performed By: #### L 500.2500, L100.0100 ####[facility] [address] [place], [address] Potassium [Moles/Vol] 4.0 mmol/L Normal 3.5-5.1 [facility] Comment on above: Performed By: #### L 500.2500, L100.0100 ####[facility] [address] [place], [address] Sodium [Moles/Vol] 141 mmol/L Normal 136-145 [facility] Comment on above: Performed By: #### L 500.2500, L100.0100 ####[facility] [address] [place], [address] Urea nitrogen [Mass/Vol] 33 mg/dL High 7-18 [facility] Comment on above: Performed By: #### L 500.2500, L100.0100 ####[facility] [address] [place], [address] CBC W/Diff, Automatedon 06-2 -2023 Absolute Lymph 1.84 X10 3/uL Normal 0.83-4.51 [facility] Comment on above: Performed By: #### L 500.2500, L100.0100 ####[facility] [address] [place], [address] Absolute Neut 3.9 X10 3/uL Normal 2.0-7.7 [facility] Comment on above: Performed By: #### L 500.2500, L100.0100 ####[facility] [address] [place], [address] Basophils/100 WBC (Bld) 0.8 % Normal 0-1 [facility] Comment on above: Performed By: #### L 500.2500, L100.0100 ####[facility] [address] [place], [address] Eosinophils/100 WBC (Bld) 2.9 % Normal 0-5 [facility] Comment on above: Performed By: #### L 500.2500, L100.0100 ####[facility] [address] [place], [address] Erythrocyte distribution width (RBC) [Ratio] 13.6 % Normal 11.6-14.6 [facility] Comment on above: Performed By: #### L 500.2500, L100.0100 ####[facility] [address] [place], [address] Hematocrit (Bld) [Volume fraction] 40.4 % Normal 37-47 [facility] Comment on above: Performed By: #### L 500.2500, L100.0100 ####[facility] [address] [place], [address] Hemoglobin (Bld) [Mass/Vol] 13.6 g/dL Normal 12.0-15.0 [facility] Comment on above: Performed By: #### L 500.2500, L100.0100 ####[facility] [address] [place], [address] IG% 0.200 Normal 0.0-0.9 [facility] Comment on above: Result Comment: IG% - Immature Granulocytes (promyelocytes, myelocytes and metamyelocytes) > 1% indicates that a LEFT SHIFT is Present. Performed By: #### L 500.2500, L100.0100 ####[facility] [address] [place], [address] Lymphocytes/100 WBC (Bld) 28.2 % Normal 19-41 [facility] Comment on above: Performed By: #### L 500.2500, L100.0100 ####[facility] [address] [place], [address] MCH (RBC) [Entitic mass] 28.9 pg Normal 27.0-32.0 [facility] Comment on above: Performed By: #### L 500.2500, L100.0100 ####[facility] [address] [place], [address] MCHC (RBC) [Mass/Vol] 33.7 g/dL Normal 32-36 [facility] Comment on above: Performed By: #### L 500.2500, L100.0100 ####[facility] [address] [place], [address] MCV (RBC) [Entitic vol] 85.8 fL Normal 81-99 [facility] Comment on above: Performed By: #### L 500.2500, L100.0100 ####[facility] [address] [place], [address] Monocytes/100 WBC (Bld) 8.7 % Normal 0-10 [facility] Comment on above: Performed By: #### L 500.2500, L100.0100 ####[facility] [address] [place], [address] Neutrophils/100 WBC (Bld) 59.2 % Normal 47-70 [facility] Comment on above: Performed By: #### L 500.2500, L100.0100 ####[facility] [address] [place], [address] Nucleated RBC (Bld) [#/Vol] 0 10*3/uL Normal 0-5 [facility] Comment on above: Performed By: #### L 500.2500, L100.0100 ####[facility] [address] [place], [address] Platelet mean volume (Bld) [Entitic vol] 10.8 fL Normal 6.2-12.0 [facility] Comment on above: Performed By: #### L 500.2500, L100.0100 ####[facility] [address] [place], [address] Platelets (Bld) [#/Vol] 229 10*3/uL Normal 150-450 [facility] Comment on above: Performed By: #### L 500.2500, L100.0100 ####[facility] [address] [place], [address] RBC (Bld) [#/Vol] 4.71 10*6/uL Normal 4.2-5.4 [facility] Comment on above: Performed By: #### L 500.2500, L100.0100 ####[facility] [address] [place], [address] RDW SD 41.9 fl Normal 35.1-43.9 [facility] Comment on above: Performed By: #### L 500.2500, L100.0100 ####[facility] [address] [place], [address] WBC (Bld) [#/Vol] 6.5 10*3/uL Normal 4.4-11.0 [facility] Comment on above: Performed By: #### L 500.2500, L100.0100 ####[facility] [address] [place], [address] BNP,B-Type NATRIURETIC PEPTI Agnieszka 10-31-2023 Natriuretic peptide B (Bld) [Mass/Vol] 59.2 pg/mL Normal 0-100 [facility] Comment on above: Performed By: #### L 503.6620 #### [facility] [address] [place], [address] CBC W/Diff, Automatedon 05- Absolute Lymph 1.63 X10 3/uL Normal 0.83-4.51 [facility] Comment on above: Performed By: #### L 100.0100, L500.4100, L500.4050, L501.9520 #### [facility] [address] [place], [address] Absolute Neut 2.7 X10 3/uL Normal 2.0-7.7 [facility] Comment on above: Performed By: #### L 100.0100, L500.4100, L500.4050, [id number] #### [facility] [address] [place], [address] Basophils/100 WBC (Bld) 1.0 % Normal 0-1 [facility] Comment on above: Performed By: #### L 100.0100, L500.4100, L500.4050, L501.9520 #### [facility] [address] [place], [address] Eosinophils/100 WBC (Bld) 3.3 % Normal 0-5 [facility] Comment on above: Performed By: #### L 100.0100, L500.4100, L500.4050, L501.9520 #### [facility] [address] [place], [address] Erythrocyte distribution width (RBC) [Ratio] 13.7 % Normal 11.6-14.6 [facility] Comment on above: Performed By: #### L 100.0100, L500.4100, L500.4050, L501.9520 #### [facility] [address] [place], [address] Hematocrit (Bld) [Volume fraction] 38.6 % Normal 37-47 [facility] Comment on above: Performed By: #### L 100.0100, L500.4100, L500.4050, L501.9520 #### [facility] [address] [place], [address] Hemoglobin (Bld) [Mass/Vol] 12.9 g/dL Normal 12.0-15.0 [facility] Comment on above: Performed By: #### L 100.0100, L500.4100, L500.4050, L501.9520 #### [facility] [address] [place], [address] IG% 0.200 Normal 0.0-0.9 [facility] Comment on above: Result Comment: IG% - Immature Granulocytes (promyelocytes, myelocytes and metamyelocytes) > 1% indicates that a LEFT SHIFT is Present. Performed By: #### L 100.0100, L500.4100, L500.4050, L501.9520 #### [facility] [address] [place], [address] Lymphocytes/100 WBC (Bld) 33.2 % Normal 19-41 [facility] Comment on above: Performed By: #### L 100.0100, L500.4100, L500.4050, [id number] #### [facility] [address] [place], [address] MCH (RBC) [Entitic mass] 28.6 pg Normal 27.0-32.0 [facility] Comment on above: Performed By: #### L 100.0100, L500.4100, L500.4050, L501.9520 #### [facility] [address] [place], [address] MCHC (RBC) [Mass/Vol] 33.4 g/dL Normal 32-36 [facility] Comment on above: Performed By: #### L 100.0100, L500.4100, L500.4050, L501.9520 #### [facility] [address] [place], [address] MCV (RBC) [Entitic vol] 85.6 fL Normal 81-99 [facility] Comment on above: Performed By: #### L 100.0100, L500.4100, L500.4050, [id number] #### [facility] [address] [place], [address] Monocytes/100 WBC (Bld) 7.7 % Normal 0-10 [facility] Comment on above: Performed By: #### L 100.0100, L500.4100, L500.4050, [id number] #### [facility] [address] [place], [address] Neutrophils/100 WBC (Bld) 54.6 % Normal 47-70 [facility] Comment on above: Performed By: #### L 100.0100, L500.4100, L500.4050, [id number] #### [facility] [address] [place], [address] Nucleated RBC (Bld) [#/Vol] 0 10*3/uL Normal 0-5 [facility] Comment on above: Performed By: #### L 100.0100, L500.4100, L500.4050, [id number] #### [facility] [address] [place], [address] Platelet mean volume (Bld) [Entitic vol] 11.7 fL Normal 6.2-12.0 [facility] Comment on above: Performed By: #### L 100.0100, L500.4100, L500.4050, [id number] #### [facility] [address] [place], [address] Platelets (Bld) [#/Vol] 185 10*3/uL Normal 150-450 [facility] Comment on above: Performed By: #### L 100.0100, L500.4100, L500.4050, [id number] #### [facility] [address] [place], [address] RBC (Bld) [#/Vol] 4.51 10*6/uL Normal 4.2-5.4 [facility] Comment on above: Performed By: #### L 100.0100, L500.4100, L500.4050, [id number] #### [facility] [address] [place], [address] RDW SD 42.7 fl Normal 35.1-43.9 [facility] Comment on above: Performed By: #### L 100.0100, L500.4100, L500.4050, [id number] #### [facility] [address] [place], [address] WBC (Bld) [#/Vol] 4.9 10*3/uL Normal 4.4-11.0 [facility] Comment on above: Performed By: #### L 100.0100, L500.4100, L500.4050, [id number] #### [facility] [address] [place], [address] Comprehensive Metabolic Prof [facility] 10-26-2023 Albumin [Mass/Vol] 3.4 g/dL Normal 3.2-5.0 [facility] Comment on above: Performed By: #### L 100.0100, L500.4100, L500.4050, L501.9520 #### [facility] [address] [place], [address] Albumin/Globulin [Mass ratio] 1.0 {ratio} Normal 0.9-2.4 [facility] Comment on above: Performed By: #### L 100.0100, L500.4100, L500.4050, L501.9520 #### [facility] [address] [place], [address] ALK P 83 U/L Normal 45-117 [facility] Comment on above: Performed By: #### L 100.0100, L500.4100, L500.4050, [id number] #### [facility] [address] [place], [address] ALT [Catalytic activity/Vol] 21 U/L Normal 13-56 [facility] Comment on above: Performed By: #### L 100.0100, L500.4100, L500.4050, L501.9520 #### [facility] [address] [place], [address] AST [Catalytic activity/Vol] 19 U/L Normal 15-37 [facility] Comment on above: Performed By: #### L 100.0100, L500.4100, L500.4050, L501.9520 #### [facility] [address] [place], [address] Bilirubin [Mass/Vol] 0.40 mg/dL Normal 0.20-1.00 [facility] Comment on above: Result Comment: For patients on eltrombopag therapy, use of Dimension [place] TBIL is not recommended. Performed By: #### L 100.0100, L500.4100, L500.4050, L501.9520 #### [facility] [address] [place], [address] BUN/CRE 17.3 RATIO Normal 10-20 [facility] Comment on above: Performed By: #### L 100.0100, L500.4100, L500.4050, L501.9520 #### [facility] [address] [place], [address] CA,Total 9.0 mg/dL Normal 8.5-10.1 [facility] Comment on above: Performed By: #### L 100.0100, L500.4100, L500.4050, [id number] #### [facility] [address] [place], [address] Chloride [Moles/Vol] 113 mmol/L High 98-107 [facility] Comment on above: Performed By: #### L 100.0100, L500.4100, L500.4050, [id number] #### [facility] [address] [place], [address] CO2 [Moles/Vol] 23.0 mmol/L Normal 21.0-32.0 [facility] Comment on above: Performed By: #### L 100.0100, L500.4100, L500.4050, L501.9520 #### [facility] [address] [place], [address] Creatinine [Mass/Vol] 1.04 mg/dL High 0.55-1.02 [facility] Comment on above: Result Comment: The validity of the calculated GFR GFRAA in patients over 70 years has not been determined. Clinical correlation is essential. Performed By: #### L 100.0100, L500.4100, L500.4050, L501.9520 #### [facility] [address] [place], [address] EST GFR - AA 65 mL/min Normal >60 [facility] Comment on above: Result Comment: Afri can Libyan GFR Calc Performed By: #### L 100.0100, L500.4100, L500.4050, [id number] #### [facility] [address] [place], [address] GAP 5 Normal 5-15 [facility] Comment on above: Performed By: #### L 100.0100, L500.4100, L500.4050, L501.9520 #### [facility] [address] [place], [address] GFR/1.73 sq M.predicted among non-blacks MDRD (S/P/Bld) [Vol rate/Area] 54 mL/min/{1.73_m2} Low >60 [facility] Comment on above: Result Comment: Non- GFR Calc Performed By: #### L 100.0100, L500.4100, L500.4050, L501.9520 #### [facility] [address] [place], [address] Globulin (S) [Mass/Vol] 3.4 g/dL Normal 2.2-4.2 [facility] Comment on above: Performed By: #### L 100.0100, L500.4100, L500.4050, L501.9520 #### [facility] [address] [place], [address] Glucose [Mass/Vol] 80 mg/dL Normal 74-106 [facility] Comment on above: Performed By: #### L 100.0100, L500.4100, L500.4050, L501.9520 #### [facility] [address] [place], [address] Potassium [Moles/Vol] 3.7 mmol/L Normal 3.5-5.1 [facility] Comment on above: Performed By: #### L 100.0100, L500.4100, L500.4050, L501.9520 #### [facility] [address] [place], [address] Sodium [Moles/Vol] 141 mmol/L Normal 136-145 [facility] Comment on above: Performed By: #### L 100.0100, L500.4100, L500.4050, L501.9520 #### [facility] [address] [place], [address] T PROT 6.8 g/dL Normal 6.4-8.2 [facility] Comment on above: Performed By: #### L 100.0100, L500.4100, L500.4050, L501.9520 #### [facility] [address] [place], [address] Urea nitrogen [Mass/Vol] 18 mg/dL Normal 7-18 [facility] Comment on above: Performed By: #### L 100.0100, L500.4100, L500.4050, L501.9520 #### [facility] [address] [place], [address] Lipid Profileon 10-26-2023 Cholesterol [Mass/Vol] 179 mg/dL Normal 200 [facility] Comment on above: Result Comment: <200 mg/dL Desirable 200-240 mg/dL Borderline >240 mg/dL High Risk Performed By: #### L 100.0100, L500.4100, L500.4050, L501.9520 #### [facility] [address] [place], [address] Cholesterol in HDL [Mass/Vol] 47 mg/dL Normal [facility] Comment on above: Result Comment: The drugs N-Acetylcysteine and Metamizole may falsely depress this assay. Reference Range HDL <40 mg/dL Low HDL Cholesterol HDL >or= 60 mg/dL High HDL Cholesterol Performed By: #### L 100.0100, L500.4100, L500.4050, L501.9520 #### [facility] [address] [place], [address] Cholesterol in LDL [Mass/Vol] 112 mg/dL Normal 0-130 [facility] Comment on above: Performed By: #### L 100.0100, L500.4100, L500.4050, L501.9520 #### [facility] [address] [place], [address] Cholesterol in VLDL [Mass/Vol] 20 mg/dL Normal 5-40 [facility] Comment on above: Performed By: #### L 100.0100, L500.4100, L500.4050, L501.9520 #### [facility] [address] [place], [address] Triglyceride [Mass/Vol] 98 mg/dL Normal [facility] Comment on above: Result Comment: The drugs N-Acetylcysteine and Metamizole may falsely depress this assay. Serum Triglycerides Reference Interval Normal <150 mg/dL Borderline high 150 - 199 mg/dL High 200 - 499 mg/dL Very High > or = 500 mg/dL Performed By: #### L 100.0100, L500.4100, L500.4050, L501.9520 #### [facility] [address] [place], [address] Thyroid Stim Hormone (TSH)on 10-26-2023 TSH 1.09 uIU/mL Normal 0.358-3.74 [facility] Comment on above: Performed By: #### L 100.0100, L500.4100, L500.4050, L501.9520 #### [facility] [address] [place], [address] XR Shoulder - right 3 Viewso n 07-31-2023 IMPRESSION: Within normal limits. No fracture or other acute changes. [employer]: PSCB Transcribe Date/Time: Jul 31 2023 4:25P Dictated by : FREDERIC TERAN MD This examination was interpreted and the report reviewed and electronically signed by: FREDERIC TERAN MD on Jul 31 2023 4:26PM [facility] DIVISION OF RADIOLOGY * * *Final Report* * * DATE OF EXAM: Jul 31 2023 4:15PM WOX 5253 - XR SHLDR >/=3V AP/STACEY AP/OTHR RT / PROCEDURE REASON: Acute pain of right shoulder * * * * Physician Interpretation * * * * RIGHT SHOULDER, 3 VIEW, 07/31/2023 HISTORY: Injury from a fall. Right shoulder pain. COMPARISON: 03/17/2022 TECHNIQUE: AP, Grashey, and Y views of the right shoulder. RESULTS: The bones are intact and normally aligned. There are no underlying bone lesions. The joint spaces appear normal. There are no periarticular calcifications. DIVISION OF RADIOLOGY Provider, [facility] - 07/31/2023 * * *Final Report* * * DATE OF EXAM: Jul 31 2023 4:15PM WOX 5253 - XR SHLDR >/=3V AP/STACEY AP/OTHR RT / PROCEDURE REASON: Acute pain of right shoulder * * * * Physician Interpretation * * * * RIGHT SHOULDER, 3 VIEW, 07/31/2023 HISTORY: Injury from a fall. Right shoulder pain. COMPARISON: 03/17/2022 TECHNIQUE: AP, Grashey, and Y views of the right shoulder. RESULTS: The bones are intact and normally aligned. There are no underlying bone lesions. The joint spaces appear normal. There are no periarticular calcifications. IMPRESSION IMPRESSION: Within normal limits. No fracture or other acute changes. [employer]ator: SUJATHA Transcribe Date/Time: Jul 31 2023 4:25P Dictated by : FREDERIC TERAN MD This examination was interpreted and the report reviewed and electronically signed by: FREDERIC TERAN MD on Jul 31 2023 4:26PM EST [facility] Radiology Study observation (narrative) [facility] XR Shoulder - right 3 ViewsO rdered By: [facility] Provider on 07-31-2023 [facility] Influenza virus A and B RNA and SARS-CoV-2 (COVID-19) N gene panel ADDY+probe (Resp)on 07-24-2023 FLUAV RNA ADDY+probe Ql (Unsp spec) Not detected Not Detected [facility] FLUBV RNA ADDY+probe Ql (Unsp spec) Not detected Not Detected [facility] SARS-CoV-2 (COVID-19) RNA ADDY+probe Ql (Resp) Detected Abnormal See comment [facility] No Panel Informationon 07-23 [facility] Absolute lymphocyte countOrd ered By: Carolin Nolasco on 07-13-2023 Lymphocytes Auto (Unsp spec) [#/Vol] 1.59 10*3/uL 0.83-4.51 [facility] Activated partial thrombopla stin time (aPTT) in platelet poor plasma by coagulation aOrdered By: Carolin Nolasco on 07-13-2023 aPTT Coag (PPP) [Time] 32.3 s 24.1-36.2 [facility] Automated lymphocyte count a s percentage of total leukocytesOrdered By: Carolin Nolasco on 07-13-2023 Lymphocytes/100 WBC Auto (Unsp spec) 21.8 % 19-41 [facility] Basophil percentageOrdered B y: Carolin Nolasco on 07-13-2023 Basophils/100 WBC (Bld) 1.0 % 0-1 [facility] Bilirubin [Mass/Vol] 0.20 mg/dL 0.20-1.00 [facility] Comment on above: For patients on eltr ombopag therapy, use of Dimension [place] TBIL is not recommended. Chloride [Moles/Vol] 111 mmol/L 98-107 [facility] Eosinophils/100 WBC (Bld) 2.5 % 0-5 [facility] Glucose [Mass/Vol] 101 mg/dL 74-106 [facility] Comment on above: Fasting Glucose resu lt from 100 to 125 mg/dL suggests IMPAIRED HOMEOSTASIS per A.D.A. criteria. Hemoglobin (Bld) [Mass/Vol] 12.8 g/dL 12.0-15.0 [facility] Monocytes/100 WBC (Bld) 8.4 % 0-10 [facility] Neutrophils (Bld) [#/Vol] 4.8 10*3/uL 2.0-7.7 [facility] Neutrophils/100 WBC (Bld) 66.2 % 47-70 [facility] Potassium [Moles/Vol] 3.8 mmol/L 3.5-5.1 [facility] Comment on above: Slight Hemolysis, Re sult may be falsely increased. Protein [Mass/Vol] 7.1 g/dL 6.4-8.2 [facility] Sodium [Moles/Vol] 140 mmol/L 136-145 [facility] WBC (Bld) [#/Vol] 7.3 10*3/uL 4.4-11.0 [facility] Determination of erythrocyte mean corpuscular volume (MCV)Ordered By: Carolin Nolasco on 07-13-2023 MCV (RBC) [Entitic vol] 83.6 fL 81-99 [facility] Direct bilirubinOrdered By: Carolin Nolasco on 07-13-2023 Bilirubin.direct [Mass/Vol] 0.07 mg/dL 0.00-0.30 [facility] Erythrocyte distribution wid th ratioOrdered By: Carolin Nolasco on 07-13-2023 Erythrocyte distribution width (RBC) [Ratio] 13.6 % 11.6-14.6 [facility] Erythrocyte distribution wid th standard deviationOrdered By: Carolin Nolasco on 07-13-2023 Erythrocyte distribution width (RBC) [Entitic vol] 41.1 fL 35.1-43.9 [facility] Hematocrit Auto (Bld) [Volum e fraction]Ordered By: Carolin Nolasco on 07-13-2023 Hematocrit (Bld) [Volume fraction] 38.2 % 37-47 [facility] Immature granulocytes/100 WB C Auto (Bld)Ordered By: Carolin Nolasco on 07-13-2023 Immature granulocytes/100 WBC (Bld) 0.100 % 0.0-0.9 [facility] Comment on above: IG% - Immature Granu locytes (promyelocytes, myelocytes and metamyelocytes) > 1% indicates that a LEFT SHIFT is Present. International normalized rat io (INR) calculationOrdered By: Carolin Nolasco on 07-13-2023 INR Coag (PPP) [Relative time] 1.0 {INR} [facility] - Chemistry and C hemistry - challengeOrdered By: Carolin Nolasco on 07-13-2023 ALP [Catalytic activity/Vol] 86 U/L 45-117 [facility] ALT [Catalytic activity/Vol] 20 U/L 13-56 [facility] CO2 [Moles/Vol] 26.0 mmol/L 21.0-32.0 [facility] Globulin (S) [Mass/Vol] 3.6 g/dL 2.2-4.2 [facility] Urea nitrogen/Creatinine [Mass ratio] 18.5 mg/mg 10-20 [facility] - CoagulationOrde red By: Carolin Nolasco on 07-13-2023 PT Coag (PPP) [Time] 13.4 s 11.7-14.9 [facility] - Hematology and Cell countsOrdered By: Carolin Nolasco on 07-13-2023 MCH (RBC) [Entitic mass] 28.0 pg 27.0-32.0 [facility] MCHC (RBC) [Mass/Vol] 33.5 g/dL 32-36 [facility] Nucleated RBC/100 WBC (Bld) [Ratio] 0 % 0-5 [facility] Platelets (Bld) [#/Vol] 229 10*3/uL 150-450 [facility] Lower GI hemoglobin IA Ql (S tl)Ordered By: Carolin Nolasco on 07-13-2023 Stool Occult Blood (SIVA) Positive [facility] No Panel InformationOrdered By: Carolin Nolasco on 07-13-2023 Estimated Creatinine Clearance Calc 30.40 ml/min [facility] Estimated GFR (MDRD) Amer 53 mL/min >60 [facility] Comment on above: GFR Calc Estimated GFR (MDRD) Non-Af Amer 44 mL/min >60 [facility] Comment on above: Non- GFR Calc Troponin I High Sensitivity 10 pg/mL 3.0-54.0 [facility] Comment on above: Please Note: New [place] t Units and Gender Specific Reference Ranges. For more information see Policy Stat Procedure [place] High Sensitivity Troponin (TNIH) and attachments. Platelet mean volume Marcus-Ec ker (Bld) [Entitic vol]Ordered By: Carolin Nolasco on 07-13-2023 Platelet mean volume (Bld) [Entitic vol] 10.9 fL 6.2-12.0 [facility] RBC Auto (Bld) [#/Vol]Ordere d By: Carolin Nolasco on 07-13-2023 RBC (Bld) [#/Vol] 4.57 10*6/uL 4.2-5.4 [facility] Serum or plasma calcium rachel urement (mass/volume)Ordered By: Carolin Nolasco on 07-13-2023 Calcium [Mass/Vol] 8.8 mg/dL 8.5-10.1 [facility] Serum or plasma creatinine m easurement (mass/volume)Ordered By: Carolin Nolasco on 07-13-2023 Creatinine [Mass/Vol] 1.24 mg/dL 0.55-1.02 [facility] Comment on above: The validity of the calculated GFR & GFRAA in patients over 70 years has not been determined. Clinical correlation is essential. Serum or plasma urea nitroge n measurement (mass/volume)Ordered By: Carolin Nolasco on 07-13-2023 Urea nitrogen [Mass/Vol] 23 mg/dL 7-18 [facility] Thin prep Papanicolaou smear with manual screeningOrdered By: Carolin Nolasco on 07-13-2023 Thin prep Papanicolaou smear with manual screening 3.5 g/dL 3.2-5.0 [facility] Thin prep Papanicolaou smear with manual screening 21 U/L 15-37 [facility] Comment on above: Slight Hemolysis, Re sult may be falsely increased. Thin prep Papanicolaou smear with manual screening 3 5-15 [facility] Basophil percentageOrdered B y: Lulu Coronelhn on 04-09-2023 Creatinine [Mass/Vol] 1.0 mg/dL 0.55-1.02 [facility] - Chemistry and C hemistry - challengeOrdered By: Lulu Orourke on 04-09-2023 GFR/1.73 sq M.predicted among non-blacks MDRD (S/P/Bld) [Vol rate/Area] 56.0000 mL/min/{1.73_m2} >60 [facility] No Panel InformationOrdered By: Lulu Orourke on 03-07-2023 Estimated GFR (MDRD) Amer 62 mL/min >60 [facility] Comment on above: GFR Calc Estimated GFR (MDRD) Non-Af Amer 51 mL/min >60 [facility] Comment on above: Non- GFR Calc Serum or plasma creatinine m easurement (mass/volume)Ordered By: Lulu Orourke on 03-07-2023 Creatinine [Mass/Vol] 1.08 mg/dL 0.55-1.02 [facility] [facility] Comment on above: The validity of the calculated GFR & GFRAA in patients over 70 years has not been determined. Clinical correlation is essential. CT CHEST WO IVCONon 02-02-20 Radiology Result ACTIONABLE Abnormal [facility] US KIDNEY/BLADDERon 01-31-20 23 [facility] Basophil percentageOrdered B y: Enrique Marley on 01-02-2023 Bilirubin [Mass/Vol] 0.40 mg/dL 0.20-1.00 [facility] Comment on above: For patients on eltr ombopag therapy, use of [place] TBIL is not recommended. Cholesterol [Mass/Vol] 189 mg/dL <200 [facility] Comment on above: <200 mg/dL Desirable 200-240 mg/dL Borderline >240 mg/dL High Risk Protein [Mass/Vol] 7.2 g/dL 6.4-8.2 [facility] Triglyceride [Mass/Vol] 146 mg/dL <199 [facility] Comment on above: The drugs N-Acetylcy steine and Metamizole may falsely depress this assay.Serum Triglycerides Reference Interval Normal <150 mg/dL Borderline high 150 - 199 mg/dL High 200 - 499 mg/dL Very High > or = 500 mg/dL Basophil percentageOrdered B y: Obey Ballard on 01-02-2023 Chloride [Moles/Vol] 111 mmol/L 98-107 [facility] Glucose [Mass/Vol] 81 mg/dL 74-106 [facility] Potassium [Moles/Vol] 4.2 mmol/L 3.5-5.1 [facility] Sodium [Moles/Vol] 142 mmol/L 136-145 [facility] Direct bilirubinOrdered By: Enrique Zarate on 01-02-2023 Bilirubin.direct [Mass/Vol] 0.10 mg/dL 0.00-0.30 [facility] Laboratory - Chemistry and C hemistry - challengeOrdered By: Enrique Zarate on 01-02-2023 ALP [Catalytic activity/Vol] 106 U/L 45-117 [facility] ALT [Catalytic activity/Vol] 18 U/L 13-56 [facility] Globulin (S) [Mass/Vol] 3.6 g/dL 2.2-4.2 [facility] Laboratory - Chemistry and C hemistry - challengeOrdered By: Obey Ballard on 01-02-2023 CO2 [Moles/Vol] 26.0 mmol/L 21.0-32.0 [facility] Magnesium [Mass/Vol] 2.3 mg/dL 1.6-2.6 [facility] Urea nitrogen/Creatinine [Mass ratio] 23.2 mg/mg 10-20 [facility] No Panel InformationOrdered By: Obey Ballard on 01-02-2023 Estimated GFR (MDRD) Amer 60 mL/min >60 [facility] Comment on above: GFR Calc Estimated GFR (MDRD) Non-Af Amer 49 mL/min >60 [facility] Comment on above: Non- GFR Calc Serum or plasma albumin rachel urement (mass/volume)Ordered By: Enrique Zarate on 01-02-2023 Albumin [Mass/Vol] 3.6 g/dL 3.2-5.0 [facility] Serum or plasma calcium rachel urement (mass/volume)Ordered By: Obey Ballard on 01-02-2023 Calcium [Mass/Vol] 9.0 mg/dL 8.5-10.1 [facility] Serum or plasma cholesterol in HDL measurement (mass/volume)Ordered By: Enrique Zarate on 01-02-2023 Cholesterol in HDL [Mass/Vol] 46 mg/dL >40 [facility] Comment on above: The drugs N-Acetylcy steine and Metamizole may falsely depress this assay. Reference Range HDL <40 mg/dL Low HDL Cholesterol HDL >or= 60 mg/dL High HDL Cholesterol Serum or plasma cholesterol in VLDL measurement (mass/volume)Ordered By: Enrique Zarate on 01-02-2023 Cholesterol in VLDL [Mass/Vol] 29 mg/dL 5-40 [facility] Serum or plasma creatinine m easurement (mass/volume)Ordered By: Obey Ballard on 01-02-2023 Creatinine [Mass/Vol] 1.12 mg/dL 0.55-1.02 [facility] Comment on above: The validity of the calculated GFR & GFRAA in patients over 70 years has not been determined. Clinical correlation is essential. Serum or plasma low density lipoprotein (LDL) cholesterol measurement (mass/volume)Ordered By: Enrique Zarate on 01-02-2023 Cholesterol in LDL [Mass/Vol] 114 mg/dL 0-130 [facility] Serum or plasma urea nitroge n measurement (mass/volume)Ordered By: Obey Ballard on 01-02-2023 Urea nitrogen [Mass/Vol] 26 mg/dL 7-18 [facility] Thin prep Papanicolaou smear with manual screeningOrdered By: Enrique Zarate on 01-02-2023 Thin prep Papanicolaou smear with manual screening 14 U/L 15-37 [facility] Thin prep Papanicolaou smear with manual screeningOrdered By: Obey Ballard on 01-02-2023 Thin prep Papanicolaou smear with manual screening 5 5-[address] [facility] [address] CHEST WO IVCONon 10-27-19 Radiology Result ACTIONABLE Abnormal [facility] CBC W Auto Differential pane l (Bld)on 10-13-2022 Basophils (Bld) [#/Vol] 0.06 10*3/uL <0.11 k/uL [facility] Basophils/100 WBC (Bld) 0.9 % [facility] Differential cell count method Nom (Bld) Auto [facility] Eosinophils (Bld) [#/Vol] 0.20 10*3/uL <0.46 k/uL [facility] Eosinophils/100 WBC (Bld) 2.9 % [facility] Erythrocyte distribution width (RBC) [Ratio] 13.0 % 11.5 - 15.0 % [facility] Hematocrit (Bld) [Volume fraction] 35.8 % Low 36.0 - 46.0 % [facility] Hemoglobin (Bld) [Mass/Vol] 12.4 g/dL 11.5 - 15.5 g/dL [facility] Immature granulocytes (Bld) [#/Vol] <0.10 k/uL [facility] Immature granulocytes/100 WBC (Bld) 0.1 % [facility] Lymphocytes (Bld) [#/Vol] 1.85 10*3/uL 1.00 - 4.00 k/uL [facility] Lymphocytes/100 WBC (Bld) 26.7 % [facility] MCH (RBC) [Entitic mass] 29.3 pg 26.0 - 34.0 pg [facility] MCHC (RBC) [Mass/Vol] 34.6 g/dL 30.5 - 36.0 g/dL [facility] MCV (RBC) [Entitic vol] 84.6 fL 80.0 - 100.0 fL [facility] Monocytes (Bld) [#/Vol] 0.66 10*3/uL <0.87 k/uL [facility] Monocytes/100 WBC (Bld) 9.5 % [facility] Neutrophils (Bld) [#/Vol] 4.15 10*3/uL 1.45 - 7.50 k/uL [facility] Neutrophils/100 WBC (Bld) 59.9 % [facility] Nucleated RBC (Bld) [#/Vol] <0.01 k/uL [facility] Nucleated RBC/100 WBC (Bld) [Ratio] 0.0 /100 WBC [facility] Platelet mean volume (Bld) [Entitic vol] 11.2 fL 9.0 - 12.7 fL [facility] Platelets (Bld) [#/Vol] 228 10*3/uL 150 - 400 k/uL [facility] RBC (Bld) [#/Vol] 4.23 10*6/uL 3.90 - 5.2 0 m/uL [facility] WBC (Bld) [#/Vol] 6.93 10*3/uL 3.70 - 11. 00 k/uL [facility] Basophil percentageOrdered B y: Selma Kilgore on 05-19-2022 Bilirubin [Mass/Vol] 0.50 mg/dL 0.20-1.00 [facility] Comment on above: For patients on eltr ombopag therapy, use of [place] TBIL is not recommended. Cholesterol [Mass/Vol] 199 mg/dL <200 [facility] Comment on above: <200 mg/dL Desirable 200-240 mg/dL Borderline >240 mg/dL High Risk Protein [Mass/Vol] 7.3 g/dL 6.4-8.2 [facility] Triglyceride [Mass/Vol] 141 mg/dL <199 [facility] Comment on above: The drugs N-Acetylcy steine and Metamizole may falsely depress this assay.Serum Triglycerides Reference Interval Normal <150 mg/dL Borderline high 150 - 199 mg/dL High 200 - 499 mg/dL Very High > or = 500 mg/dL Direct bilirubinOrdered By: Selma Kilgore on 05-19-2022 Bilirubin.direct [Mass/Vol] 0.14 mg/dL 0.00-0.30 [facility] Laboratory - Chemistry and C hemistry - challengeOrdered By: Selma Kilgore on 05-19-2022 ALP [Catalytic activity/Vol] 100 U/L 45-117 [facility] ALT [Catalytic activity/Vol] 25 U/L 13-56 [facility] Globulin (S) [Mass/Vol] 3.7 g/dL 2.2-4.2 [facility] Serum or plasma albumin rachel urement (mass/volume)Ordered By: Selma Kilgore on 05-19-2022 Albumin [Mass/Vol] 3.6 g/dL 3.2-5.0 [facility] Serum or plasma cholesterol in HDL measurement (mass/volume)Ordered By: Selma Kilgore on 05-19-2022 Cholesterol in HDL [Mass/Vol] 48 mg/dL >40 [facility] Comment on above: The drugs N-Acetylcy steine and Metamizole may falsely depress this assay. Reference Range HDL <40 mg/dL Low HDL Cholesterol HDL >or= 60 mg/dL High HDL Cholesterol Serum or plasma cholesterol in VLDL measurement (mass/volume)Ordered By: Selma Kilgore on 05-19-2022 Cholesterol in VLDL [Mass/Vol] 28 mg/dL 5-40 [facility] Serum or plasma low density lipoprotein (LDL) cholesterol measurement (mass/volume)Ordered By: Selma Kilgore on 05-19-2022 Cholesterol in LDL [Mass/Vol] 123 mg/dL 0-130 [facility] Thin prep Papanicolaou smear with manual screeningOrdered By: Selma Kilgore on 05-19-2022 Thin prep Papanicolaou smear with manual screening 19 U/L 15-37 [facility] EMG(NEURO/NI)on 03-31-2022 [facility] XR Cervical spine AP and Lat eralon 03-19-2022 IMPRESSION: Cervical spondylosis. [employer] Metal Fabricator: SUJATHA Transcribe Date/Time: Mar 19 2022 7:41P Dictated by : CARLOS LIU MD This examination was interpreted and the report reviewed and electronically signed by: CARLOS LIU MD on Mar 19 2022 7:44PM [facility] DIVISION OF RADIOLOGY * * *Final Report* * * DATE [...] joint space narrowing. Facet hypertrophic degenerative changes. DIVISION OF RADIOLOGY Provider, Tequila Cisco Guallpa - 03/19/2022 * * *Final Report* * * DATE [...] joint space narrowing. Facet hypertrophic degenerative changes. IMPRESSION IMPRESSION: Cervical spondylosis. [employer] Metal Fabricator: SUJATHA Transcribe Date/Time: Mar 19 2022 7:41P Dictated by : CARLOS LIU MD This examination was interpreted and the report reviewed and electronically signed by: CARLOS LIU MD on Mar 19 2022 7:44PM EST [facility] XR Cervical spine AP and Lat eralOrdered By: Ccf Provider on 03-19-2022 [facility] XR Shoulder - right 2 Viewso n 03-19-2022 IMPRESSION: Unremarkable exam [employer]ricator: PSCB Transcribe Date/Time: Mar 19 2022 7:45P Dictated by : CARLOS LIU MD This examination was interpreted and the report reviewed and electronically signed by: CARLOS LIU MD on Mar 19 2022 7:45PM EST DIVISION OF RADIOLOGY * * *Final Report* * * DATE [...] of the glenohumeral joint space is evident. DIVISION OF RADIOLOGY Provider, [facility] - 03/19/2022 * * *Final Report* * * DATE [...] of the glenohumeral joint space is evident. IMPRESSION IMPRESSION: Unremarkable exam [employer] Metal Fabricator: [facility] Transcribe Date/Time: Mar 19 2022 7:45P Dictated by : CARLOS LIU MD This examination was interpreted and the report reviewed and electronically signed by: CARLOS LIU MD on Mar 19 2022 7:45PM EST [facility] No Panel Informationon 03-17 Radiology Study observation (narrative) [facility] CBC W Auto Differential pane l (Bld)on 12-08-2021 Abs Immature Gran <0.03 <0.10 k/uL [facility] Basophils (Bld) [#/Vol] 0.06 10*3/uL <0.11 k/uL [facility] Basophils/100 WBC (Bld) 0.9 % [facility] Differential cell count method Nom (Bld) Auto [facility] Eosinophils (Bld) [#/Vol] 0.23 10*3/uL <0.46 k/uL [facility] Eosinophils/100 WBC (Bld) 3.3 % [facility] Erythrocyte distribution width (RBC) [Ratio] 13.4 % 11.5 - 15.0 % [facility] Hematocrit (Bld) [Volume fraction] 40.0 % 36.0 - 46.0 % [facility] Hemoglobin (Bld) [Mass/Vol] 13.0 g/dL 11.5 - 15.5 g/dL [facility] Immature Gran % 0.3 % [facility] Lymphocytes (Bld) [#/Vol] 1.41 10*3/uL 1.00 - 4.00 k/uL [facility] Lymphocytes/100 WBC (Bld) 20.4 % [facility] MCH (RBC) [Entitic mass] 27.8 pg 26.0 - 34.0 pg [facility] MCHC (RBC) [Mass/Vol] 32.5 g/dL 30.5 - 36.0 g/dL [facility] MCV (RBC) [Entitic vol] 85.5 fL 80.0 - 100.0 fL [facility] Monocytes (Bld) [#/Vol] 0.57 10*3/uL <0.87 k/uL [facility] Monocytes/100 WBC (Bld) 8.2 % [facility] Neutrophils (Bld) [#/Vol] 4.62 10*3/uL 1.45 - 7.50 k/uL [facility] Neutrophils/100 WBC (Bld) 66.9 % [facility] Nucleated RBC (Bld) [#/Vol] 10*3/uL <0.01 k/uL [facility] Nucleated RBC/100 WBC (Bld) [Ratio] 0.0 /100 WBC [facility] Platelet mean volume (Bld) [Entitic vol] 11.4 fL 9.0 - 12.7 fL [facility] Platelets (Bld) [#/Vol] 224 10*3/uL 150 - 400 k/uL [facility] RBC (Bld) [#/Vol] 4.68 10*6/uL 3.90 - 5.2 0 m/uL [facility] WBC (Bld) [#/Vol] 6.91 10*3/uL 3.70 - 11. 00 k/uL [facility] No Panel Informationon 07-21 IMPRESSION: 1. Left hip grossly unremarkable. 2. 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 [employer] Metal Fabricator: SUJATHA Transcribe Date/Time: Jul 21 2021 12:58P Dictated by : DEANNA SIBLEY MD This examination was interpreted and the report reviewed and electronically signed by: DEANNA SIBLEY MD on Jul 21 2021 1:02PM [facility] DIVISION OF RADIOLOGY Radiology Study observation (narrative) [facility] No Panel InformationOrdered By: Ccf Provider on 07-21-2021 [facility] XR Lumbar spine 3 Viewson * * *Final Report* * * DATE OF EXAM: Jul 21 2021 10:57AM WOX 5228 - XR LUMBAR 3V AP/LAT/L5-S1 / PROCEDURE REASON: Lumbar radiculopathy * * * * Physician Interpretation * * * * HISTORY: pain across the lower lumbar and upper left thigh for years and now recently has moved down into left calf. no inj. Lumbar radiculopathy . TECHNIQUE: XR HIP 3V PELV+ AP/LAT LT, XR LUMBAR 3V AP/LAT/L5-S1 Laterality: LEFT (accession [id number]), NOT APPLICABLE (accession [id number]) Number of different views (projections): 3 views of the lumbar spine 2 views of the left hip COMPARISON: Lumbar spine in 2019 RESULT: Left hip: Well-maintained with normal shape of the femoral head. No fracture identified. The bony pelvis is intact. Lumbar spine: Multilevel severe degenerative change again noted throughout the spine involving the facet joints and the discovertebral articulations. No spondylolisthesis. No compression fracture. Extensive calcification of the abdominal aorta. DIVISION OF RADIOLOGY Provider, [facility] - 07/21/2021 * * *Final Report* * * DATE OF EXAM: Jul 21 2021 10:57AM WOX 5228 - XR LUMBAR 3V AP/LAT/L5-S1 / PROCEDURE REASON: Lumbar radiculopathy * * * * Physician Interpretation * * * * HISTORY: pain across the lower lumbar and upper left thigh for years and now recently has moved down into left calf. no inj. Lumbar radiculopathy . TECHNIQUE: XR HIP 3V PELV+ AP/LAT LT, XR LUMBAR 3V AP/LAT/L5-S1 Laterality: LEFT (accession [id number]), NOT APPLICABLE (accession [id number]) Number of different views (projections): 3 views of the lumbar spine 2 views of the left hip COMPARISON: Lumbar spine in 2019 RESULT: Left hip: Well-maintained with normal shape of the femoral head. No fracture identified. The bony pelvis is intact. Lumbar spine: Multilevel severe degenerative change again noted throughout the spine involving the facet joints and the discovertebral articulations. No spondylolisthesis. No compression fracture. Extensive calcification of the abdominal aorta. IMPRESSION IMPRESSION: 1. Left hip grossly unremarkable. 2. 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 Sheet Metal Fabricator: [facility] Transcribe Date/Time: Jul 21 2021 12:58P Dictated by : DEANNA SIBLEY MD This examination was interpreted and the report reviewed and electronically signed by: DEANNA SIBLEY MD on Jul 21 2021 1:02PM [facility] XR Pelvis and Hip - left AP and Lateral frogon 07-21-2021 * * *Final Report* * * DATE OF EXAM: Jul 21 2021 10:57AM WOX 5351 - XR HIP 3V PELV+ AP/LAT LT / PROCEDURE REASON: Lumbar radiculopathy * * * * Physician Interpretation * * * * HISTORY: pain across the lower lumbar and upper left thigh for years and now recently has moved down into left calf. no inj. Lumbar radiculopathy . TECHNIQUE: XR HIP 3V PELV+ AP/LAT LT, XR LUMBAR 3V AP/LAT/L5-S1 Laterality: LEFT (accession [id number]), NOT APPLICABLE (accession [id number]) Number of different views (projections): 3 views of the lumbar spine 2 views of the left hip COMPARISON: Lumbar spine in 2019 RESULT: Left hip: Well-maintained with normal shape of the femoral head. No fracture identified. The bony pelvis is intact. Lumbar spine: Multilevel severe degenerative change again noted throughout the spine involving the facet joints and the discovertebral articulations. No spondylolisthesis. No compression fracture. Extensive calcification of the abdominal aorta. DIVISION OF RADIOLOGY Provider, [facility] - 07/21/2021 * * *Final Report* * * DATE OF EXAM: Jul 21 2021 10:57AM WOX 5351 - XR HIP 3V PELV+ AP/LAT LT / PROCEDURE REASON: Lumbar radiculopathy * * * * Physician Interpretation * * * * HISTORY: pain across the lower lumbar and upper left thigh for years and now recently has moved down into left calf. no inj. Lumbar radiculopathy . TECHNIQUE: XR HIP 3V PELV+ AP/LAT LT, XR LUMBAR 3V AP/LAT/L5-S1 Laterality: LEFT (accession [id number]), NOT APPLICABLE (accession [id number]) Number of different views (projections): 3 views of the lumbar spine 2 views of the left hip COMPARISON: Lumbar spine in 2019 RESULT: Left hip: Well-maintained with normal shape of the femoral head. No fracture identified. The bony pelvis is intact. Lumbar spine: Multilevel severe degenerative change again noted throughout the spine involving the facet joints and the discovertebral articulations. No spondylolisthesis. No compression fracture. Extensive calcification of the abdominal aorta. IMPRESSION IMPRESSION: 1. Left hip grossly unremarkable. 2. 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 Sheet Metal Fabricator: PSCB Transcribe Date/Time: Jul 21 2021 12:58P Dictated by : DEANNA SIBLEY MD This examination was interpreted and the report reviewed and electronically signed by: DEANNA SIBLEY MD on Jul 21 2021 1:02PM [facility] MRI KIDNEY WO/W IVCONon 10-0 MRI KIDNEY WO/W IVCON Final Report DATE OF EXAM: Mar 17 2020 5:45PM LDM 0721 - MRI KIDNEY WO/W IVCON / PROCEDURE REASON: Renal lesion Physician Interpretation EXAMINATION: MRI ABDOMEN WITHOUT AND WITH IV CONTRAST CLINICAL HISTORY: Renal mass characterization. TECHNIQUE: A renal MRI was performed on a utilizing the torso phased-array coil. Pulse sequences included: axial precontrast T1 weighted in- and [id number], axial and coronal HASTE, axial DWI with creation of ADC map; axial and coronal T1-VIBE before and after the administration of intravenous gadolinium chelate. Multiple post processing techniques were performed. MQ: [id number] Contrast: IV administration of 15 ml of Dotarem COMPARISON: Ultrasound of the kidneys 03/02/2020 and prior RESULT: Kidneys, adrenals and ureters: Right kidney: No mass. Right renal vasculature: Evaluation is degraded due to respiratory motion - Arterial: Grossly patent, an accessory inferior polar artery is noted on the CT of 02/2014. - Venous: single. Right ureter: Single ureter. No hydronephrosis. Right adrenal: Normal, no nodules or thickening Left kidney: No mass. 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 Left renal vasculature - Arterial: single. No early branch (< 1cm). - Venous: conventional, anterior to the aorta. Left ureter: Single ureter. No hydronephrosis. Left adrenal: Normal, no nodules or thickening Retroperitoneal lymphadenopathy and IV involvement no IVC thrombus or retroperitoneal lymphadenopathy. Abdomen: Liver: Normal morphology. No hepatic steatosis. A 1.9 cm cyst is present in the periphery of the segment 2 and other smaller cyst in the inferior segment 4 as noted on prior ultrasound of 01/2013 Biliary: No bile duct dilation. Gallbladder is unremarkable. Spleen: No mass. No splenomegaly. Pancreas: No mass or duct dilation. GI tract: Small hiatal hernia. No dilation or wall thickening. No bowel obstruction. Lymph nodes (other): No abdominal or pelvic lymphadenopathy. Mesentery/Peritoneum: No ascites or mass. Retroperitoneum: No mass. Vasculature: The celiac axis and SMA are patent. Moderate atherosclerotic plaque of the aorta, mild ectasia. The portal vein and branches, splenic vein, SMV, and hepatic veins are patent. Bones/Soft Tissues: Partially imaged 1.3 cm perineural cyst in the left mid thoracic spine. Lower thorax: No consolidation or pleural effusion. 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 Sheet Metal Fabricator: SUJATHA Transcribe Date/Time: Mar 18 2020 3:02P Dictated by : DAYANA ESPINO MD This examination was interpreted and the report reviewed and electronically signed by: DAYANA ESPINO MD on Mar 18 2020 3:26PM EST [facility] ANES Ana 08-11-2019 ANES POST HNO ID: [id number] Author: De Pagan Service: Anesthesiology Author Type: Anesthesiologist Type: Anesthesia PostOp Filed: 08/11/2019 3:10 PM Note Text: POST ANESTHESIA EVALUATION NOTE SERVICE DATE: 08/11/2019 SERVICE TIME: 3:10 PM : 1940 Vitals: 08/11/19 1209 08/11/19 1440 Temp: 36.7 ?C (98.1 ?F) 36.7 ?C (98.1 ?F) 08/11/19 1209 08/11/19 1440 08/11/19 1500 BP: 146/65 126/60 123/61 08/11/19 1209 08/11/19 1440 08/11/19 1500 Pulse: 74 80 74 08/11/19 1209 08/11/19 1440 08/11/19 1500 Resp: 16 16 16 08/11/19 1209 08/11/19 1440 08/11/19 1500 SpO2: 100% 100% 99% Validated Vital Signs: Yes POST ANES STATUS: No apparent anesthetic complications. The patient is appropriately hydrated with stable respiratory and cardiovascular status. Patient has safe and adequate airway control. The patient has appropriate pain relief and no significant post operative nausea or vomiting. The patient has achieved baseline mental status. Intra-Operative Events: No Significant Anesthesia Events Further assessment by Anesthesia Service: None Other Remarks: SIGNATURE: De Pagan MD PATIENT NAME: Lisette Enamorado DATE: August 11, 2019 TIME: 3:10 PM PAGER/CONTACT #: [facility] ANES PREOPon 08-11-2019 ANES PREOP HNO ID: [id number] Author: Moe Buck Service: Anesthesiology Author Type: Anesthesiologist Type: Anesthesia PreOp Filed: 08/11/2019 1:12 PM Note Text: ANESTHESIOLOGY DAY OF SURGERY NOTE SERVICE DATE: 08/11/2019 SERVICE TIME: : 1940 Procedure(s) (LRB): COLONOSCOPY (N/A) EGD (N/A) Surgeon(s): Breezy Vines Estimated body mass index is 30.03 kg/m? as calculated from the following: Height as of 07/28/19: 157.5 cm (5' 2). Weight as of 08/07/19: 74.5 kg (164 lb 3.2 oz). Most recent hematocrit and potassium results: Hematocrit 37.8 02/07/2017 Potassium 3.8 06/26/2018 ANES DOS/PREOP NOTE: Vitals: 08/11/19 1209 BP: 146/65 Pulse: 74 Resp: 16 Temp: 36.7 ?C (98.1 ?F) TempSrc: Tympanic SpO2: 100% ACTIVE PROBLEM LIST Incomplete Bladder Emptying Essential Hypertension Irritable Bowel Syndrome Generalized Anxiety Disorder Generalized Osteoarthrosis, Unspecified Site Retention of Urine, Unspecified Cervicalgia Diarrhea Diverticulosis of Colon (Without Mention of Hemorrhage) Bilateral Carotid Artery Stenosis Cad (Coronary Artery Disease) Myalgia and Myositis, Unspecified Sleep Apnea Onychia and Paronychia of Toe Lumbago Bursitis of Left Shoulder Right Cervical Radiculopathy Right Carpal Tunnel Syndrome Hyperlipidemia Hypothyroidism Sensorineural Hearing Loss, Bilateral Otalgia Bilateral Impacted Cerumen Ckd (Chronic Kidney Disease) Stage 3, Gfr 30-59 Ml/Min ([facility]) Pvd (Peripheral Vascular Disease) ([facility]) Grade II Diastolic Dysfunction Heme Positive Stool PAST MEDICAL HISTORY Diagnosis Date - Diarrhea - Generalized anxiety disorder - Generalized osteoarthrosis, unspecified site lumbar and c-spine - Incomplete bladder emptying 05/11/2005 - Irritable bowel syndrome - Pure hypercholesterolemia - Unspecified essential hypertension PAST SURGICAL HISTORY Procedure Laterality Date - ANTER COLPORRHAPHY,BLAD/VAGINA Cystocele repair - APPENDECTOMY >72 - COLONOSCOP W/ OR W/O [facility] SPEC 08/2003 Colonoscopy - COLONOSCOP W/ OR W/O [facility] SPEC 06/16/2008 Colonoscopy-repeat in - COLONOSCOP W/ OR W/O [facility] SPEC 03/19/2014 Colonoscopy - EGD W/O OR W/BRUSH/WASH 08/09/15 EGD - LEFT HEART CATH,PERCUTANEOUS 09/26/2012 Cardiac cath, L heart [facility] - chest pain - REMOVAL ADENOIDS,PRIMARY,<12 Y/O Adenoidectomy - REMOVAL OF TONSILS,<12 Y/O Tonsillectomy - STENT PLACEMENT 03/22, 09/21 medicated cardiac stent FAMILY HISTORY Problem Relation Age of Onset - Heart Mother CABG x3 - Hypertension Mother - Breast Cancer Mother - Heart Father - other (lung problems) Father Social History: Social History Tobacco Use - Smoking status: Never Smoker - Smokeless tobacco: Never Used Substance Use Topics - Alcohol use: Yes Frequency: 2-4 times a month Drinks per session: 1 or 2 Binge frequency: Never Comment: rare glass of wine - Drug use: No No current facility-administered medications on file prior to encounter. Current Outpatient Medications on File Prior to Encounter Medication Sig - amLODIPine (NORVASC) 5 mg tablet Take 5 mg by mouth once daily. - ticagrelor (BRILINTA) 90 mg tablet Take 1 tablet by mouth twice daily. - ezetimibe (ZETIA) 10 mg tablet 10 mg. - cholecalciferol, vitamin D3, 4,000 unit cap Take 1 Dose by mouth once daily. - colestipol (COLESTID) 1 gram tablet Take 1 tablet by mouth twice daily. Dr. Zarate - Aspirin 81 mg Tab Take 1 tablet by mouth once daily. Take with food. Current Facility-Administered Medications Medication Dose Route Frequency Provider Last Rate Last Dose - lidocaine 10 mg/mL (1 %) 1-2 mg injection (XYLOCAINE) 0.1-0.2 mL INTRADERMAL PRN Kristen ([employer]) Thelma - lactated ringers infusion 50 mL/hr INTRAVENOUS CONTINUOUS Kristen ([employer]) Thelma Allergies: ALLERGIES Allergen Reactions - Ditropan [Oxybutyni* GI Upset - Lisinopril Cough DOS EXAM: Adequate NPO status: Yes Anesthetic risks, benefits, alternatives, personnel and consent discussed: Yes Patient agrees to proceed: Yes Previous Anesthesia: No history of adverse event. Airway Assessment: MP 2; Neck ROM: Full ROM without neurologic symptoms; Airway Evaluation: No significant abnormalities Symptoms of Sleep Apnea: Age over 50 (79 year old) Dentition: Poor dentition Additional Physical Exam: Lungs: Patient health status unchanged since recent history and physical. See history and physical for exam findings. Lungs clear to auscultation. Good diaphragmatic excursion. Cardiac: Patient health status unchanged since recent history and physical. See history and physical for exam findings. normal S1 and S2; no rubs, no murmurs, and no gallops Additional Pertinent Findings: N/A Blood Products: Not anticipated for this procedure. Anesthetic Plan: MAC with Sedation Pain Management Plan: Parenteral or Oral ASA Class: 3 Other Medical Problems: None Chronic Beta Samantha medication administered within 24 hours: N/A I have interviewed and examined the patient. I have reviewed the medical record and/or the pre-anesthesia evaluation, pertinent labs, and test results. Significant changes in the patient's condition since the History and Physical, not otherwise documented in primary service progress notes: No This contains updated information obtained within 48 hours of Surgery/Procedure. SIGNATURE: Moe Buck MD PATIENT NAME: Lisette Enamorado DATE: August 11, 2019 TIME: 1:10 PM CSN: [id number] Normal [facility] HISTORY PHYSICALon 0 HISTORY PHYSICAL HNO ID: [id number] Author: Breezy Vines Service: General Surgery Author Type: Physician Type: HANDP Filed: 08/11/2019 11:43 AM Note Text: HISTORY AND PHYSICAL ? Lisette Enamorado 1940 ? REFERRING PHYSICIAN: [facility]* ? CHIEF COMPLAINT: ED Follow-up ? HPI: The patient is a 79 year old female referred for endoscopy due to heme positive stool. Lisette notes an episode of GI bleeding last week, lasted several days. Started out as bright red blood, but a few days later she noted much darker blood. She notes a history of IBS and states she always has lower abdominal aching discomfort. She denies new or worsening abdominal pain, and denies any anorectal pain with bowel movements. Denies family history of colon issues. The patient notes no upper GI complaints. ? Lisette has undergone prior endoscopy. Most recent colonoscopy was in [address] Betancourt with no concerning findings at that time. ? Patient had called in to primary care with the complaints of bleeding and was advised to go to the emergency department. [facility] ED records from 07/11/2019 reviewed. Patient had a CT scan which showed small hepatic cysts and scattered diverticula, no acute findings. Hemoglobin 11.6, hematocrit 34.9. Dr. Vines was contacted and recommended follow-up as an outpatient to set up endoscopy. ? Patient had an WI in May 2019. She had presented to her oral and maxillofacial surgery resident complaining of chest pain, underwent diagnostic heart catheterization with stenting to mid LAD. She is maintained on Brilinta. Cardiology notes are reviewed. ? Patient denies any chest pain or shortness of breath currently. Denies problems with sedation in the past. ? ? PAST MEDICAL HISTORY PAST MEDICAL HISTORY Diagnosis Date - Diarrhea ? - Generalized anxiety disorder ? - Generalized osteoarthrosis, unspecified site ? ? lumbar and c-spine - Incomplete bladder emptying 05/11/2005 - Irritable bowel syndrome ? - Pure hypercholesterolemia ? - Unspecified essential hypertension ? ? ? PAST SURGICAL HISTORY PAST SURGICAL HISTORY Procedure Laterality Date - ANTER COLPORRHAPHY,BLAD/VAGINA ? ? ? Cystocele repair - APPENDECTOMY ? >72 - COLONOSCOP W/ OR W/O [facility] SPEC ? 08/2003 ? Colonoscopy - COLONOSCOP W/ OR W/O [facility] SPEC ? 06/16/2008 ? Colonoscopy-repeat in - COLONOSCOP W/ OR W/O [facility] SPEC ? 03/19/2014 ? Colonoscopy - EGD W/O OR W/BRUSH/WASH ? 08/09/15 ? EGD - LEFT HEART CATH,PERCUTANEOUS ? 09/26/2012 ? Cardiac cath, L heart [facility] - chest pain - REMOVAL ADENOIDS,PRIMARY,<12 Y/O ? ? ? Adenoidectomy - REMOVAL OF TONSILS,<12 Y/O ? ? ? Tonsillectomy - STENT PLACEMENT ? 03/22, 09/21 ? medicated cardiac stent ? ? ? CURRENT MEDICATIONS Current Outpatient Medications Medication Sig - amLODIPine (NORVASC) 5 mg tablet Take 5 mg by mouth once daily. - ticagrelor (BRILINTA) 90 mg tablet Take 1 tablet by mouth twice daily. - atorvastatin (LIPITOR) 20 mg tablet Take 1 tablet by mouth daily at bedtime. - ezetimibe (ZETIA) 10 mg tablet 10 mg. - cetirizine (ZYRTEC) 10 mg tablet Take 1 tablet by mouth once daily. - levothyroxine (SYNTHROID) 75 mcg tablet TAKE 1 TABLET DAILY BEFORE BREAKFAST - COMPOUNDED PRESCRIPTION Bladder scan - to check for urinary retention related issues, before and after passing urine. - fluticasone (FLONASE) 50 mcg/actuation nasal spray Use 2 Sprays in each nostril once daily. Rinse mouth after use. - isosorbide mononitrate ER (IMDUR) 60 mg 24 hr tablet Take 1 tablet by mouth once daily. (Patient not taking: Reported on 06/26/2019 ) - metoprolol tartrate, short acting, (LOPRESSOR) 50 mg tablet Take 1 tablet by mouth three times daily. - nitroglycerin sublingual (NITROQUICK) 0.4 mg SL tablet Dissolve 1 tablet under the tongue as directed. DISSOLVE ONE(1) TABLET UNDER THE TOUNGUE NEEDED FOR CHEST PAIN,EVERY 5 MIN X3 - triamcinolone acetonide (KENALOG) 0.1 % cream Apply 1 application to affected area twice daily. Apply sparingly to area for rash/itching. (Patient not taking: Reported on 06/26/2019 ) - cholecalciferol, vitamin D3, 4,000 unit cap Take 1 Dose by mouth once daily. - CLOPIDOGREL BISULFATE (PLAVIX ORAL) Take 75 mg by mouth once daily. - colestipol (COLESTID) 1 gram tablet Take 1 tablet by mouth twice daily. Dr. Zarate - Aspirin 81 mg Tab Take 1 tablet by mouth once daily. Take with food. ? No current facility-administered medications for this visit. ? ? ALLERGIES: Ditropan [Oxybutynin Chloride]; Lisinopril ? PERSONAL HISTORY: SOCIAL HISTORY Social History ? Tobacco Use - Smoking status: Never Smoker - Smokeless tobacco: Never Used Substance Use Topics - Alcohol use: Yes ? ? Comment: rare glass of wine - Drug use: No ? FAMILY HISTORY: FAMILY HISTORY FAMILY HISTORY Problem Relation Age of Onset - Heart Mother ? ? CABG x3 - Hypertension Mother ? - Breast Cancer Mother ? - Heart Father ? - other (lung problems) Father ? ? ? REVIEW OF SYMPTOMS: The review of systems data was entered by the nurse and reviewed by me ? Nursing Notes: Robel Cordero 07/14/2019 10:50 AM Signed REVIEW OF SYSTEMS: General: The patient denies fatigue, denies weight loss, denies weight gain, denies feeling hot, and denies feelings of cold. Eyes: The patient denies glaucoma, denies eye injury/surgery, does not wear glasses or contacts. Ear/Nose/Throat: The patient denies allergies, denies hayfever, denies ear infections, and denies bloody noses. Cardiovascular: The patient denies chest pain, NOTES heart disease, denies high blood pressure,NOTES cardiac stent, denies prior heart attack, denies irregular heart beat, denies high cholesterol, denies poor circulation, denies heart failure, other cardiac issues, denies claudication, denies cold feet, denies peripheral arterial stent. Respiratory: The patient denies tuberculosis, denies pneumonia, denies frequent cough, denies pulmonary embolism, denies shortness of breath, and denies coughing up blood. Gastrointestinal: The patient denies difficulty swallowing, denies acid reflux, denies ulcers, denies vomiting, denies jaundice/hepatitis, denies gallbladder problems, denies black or tarry stools, denies hemorrhoids, denies bleeding from rectum, denies diverticulitis, denies constipation, denies diarrhea, denies loss of stool control, and denies hernias. Kidney/Bladder: The patient denies kidney stones, denies urine infections, and denies bloody urine. Skin: The patient denies a history of skin cancer, denies bleeding/changing moles, and denies a history of skin rash. Neurologic: The patient denies a history of epilepsy/convulsions, denies headaches, denies head/spinal injuries, and denies stroke/TIA. Psychiatric: The patient denies psychiatric medications, denies depression, and denies voices, denies substance abuse. Endocrine: The patient denies thyroid disorders, denies diabetes, and denies hormonal problems. Hematologic: The patient denies a history of bruising, denies bleeding, and denies anemia, denies blood clots. Infections: The patient denies a history of measles and mumps, denies rheumatic fever, and denies sexually transmitted diseases. Musculoskeletal: The patient denies back pain/injury, denies back problems, denies sciatica, denies knee/foot trouble, denies arthritis, or denies gout. ? ? When was patient's last Mammogram screening? 2014 ? Last Colonoscopy: 2013 ? Robel Cordero I have confirmed and edited as necessary, the PFSH and ROS obtained by others. ? PHYSICAL EXAMINATION: ? General: The patient is 79 year old female, well nourished, well hydrated in no acute distress. The patient is oriented to time, place, and person. ? VITALS: Blood pressure 138/76, pulse 88, temperature 36.6 ?C (97.8 ?F), temperature source Temporal Artery, resp. rate 18, height 157.5 cm (5' 2), weight 73.5 kg (162 lb), SpO2 99 %. Body mass index is 29.63 kg/m?. ? HEENT: Normal cephalic, ataumatic, pupils are equally round, sclera are anicteric, mucous membranes are moist, oropharynx is clear. Neck has no masses, asymmetry or lymphadenopathy. ? Respiratory: Clear to auscultation and percussion. Normal respiratory excursion and pattern. ? Cardiac: Examination is regular rate and rhythm. Normal S1/S2 ? Abdominal exam: Soft, nontender, with no palpable masses. No hepatosplenomegaly. No palpable hernias. ? Extremities: no clubbing, cyanosis or edema. No adenopathy. ? LABORATORY VALUES: As Noted ? RADIOLOGIC STUDIES: As Noted ? ? Assessment IMPRESSION: blood in stools, recent WI and stent placement ? PLAN: I have reviewed my findings with the surgeon. Will plan for upper and lower endoscopy. We discussed the risks and benefits of the planned endoscopy. I have informed the patient that complications can occur including failure to complete the endoscopy and perforation. The patient had the opportunity to ask questions concerning the planned endoscopy. My staff has also explained the procedure to the patient in understandable terms and has given the patient printed material concerning the procedure. The patient freely consents to surgery. ? Patient expresses she is not especially interested in having endoscopy, but is willing to have this done if it can be in the next few weeks. She is leaving for a trip in mid-August ? I plan to use Golytely bowel preparation ? Patient to REMAIN ON her anticoagulation for the procedures. Received cardiac clearance from Dr. Zarate, scanned into [facility] ? The patient has medical comorbidities for which we will plan for the procedure to be performed under Monitored Anesthetic Care. ? ? Diagnoses: (K92.1) Blood in stool (primary encounter diagnosis) (I25.2) History of WI (myocardial infarction) (Z95.5) S/P coronary artery stent placement (Z79.01) On continuous oral anticoagulation (R19.5) Dark stools ? ? Lori Napier PA-C [facility] PT EDon 08-11-2019 PT ED HNO ID: [id number] Author: Amrik DominguezRnTapan Carpio RN Service: Nursing Author Type: Registered Nurse Type: Patient Education Filed: 08/11/2019 3:46 PM Note Text: POST OP LEARNING RESPONSE INSTRUCTION PROVIDED TO: Patient and family member METHOD OF INSTRUCTION: Written instruction - handouts Verbal instruction PATIENT / FAMILY RESPONSE: Verbalizes understanding of: POST-OPERATIVE INSTRUCTIONS-Correct actions to take to reduce postoperative complications FOLLOW-UP PLAN: Patient instructed to call with any further issues SUPPLEMENTAL MATERIAL: None REFERRAL (RECOMMENDATION): None Electronically Signed By: Amrik Carpio RN In Department: [facility] PT ED HNO ID: [id number] Author: Nisreen Maria RN Service: ? Author Type: Registered Nurse Type: Patient Education Filed: 08/11/2019 12:18 PM Note Text: PRE OP LEARNING ASSESSMENT PROCEDURE/SURGERY: GI PROCEDURES: Colonoscopy READINESS TO LEARN COGNITIVE ABILITY: Alert and oriented MOTIVATION TO LEARN: Interested FAMILY SUPPORT: Moderate - Family present but overwhelmed PATIENT LEARNS BEST BY: Verbal Instruction FACTORS AFFECTING LEARNING: None PHYSICAL LIMITATIONS AFFECTING LEARNING: None Electronically Signed By: Nisreen Maria RN In Department: [facility] SURGICAL PATHOLOGYon 020 SURGICAL PATHOLOGY Specimen originated from [facility] Specimen #: [id number] Submitting Physician: BREEZY VINES MD __ FINAL DIAGNOSIS 1. Esophagogastric junction, biopsy (A) - Esophageal squamous and inflamed gastric cardia-type mucosa with focal intestinal metaplasia (see comment). - Negative for dysplasia. 2. Stomach, antrum, biopsy (B) - Gastric antral and body-type mucosa with no diagnostic alteration. - Negative for H. pylori organisms on routine stain. 3. Colon, sigmoid at 30 cm, biopsy (C) - Tubular adenoma. EFRA/sonia/08/13/19 COMMENT 1. Histologic sections from the esophagogastric junction biopsy specimen show fragments of esophageal squamous and inflamed gastric cardia-type mucosa consistent with reflux esophagitis. Focal intestinal metaplasia is present. 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 There is no dysplasia. Mo Giang M.D. (Electronic Signature) SPECIMEN SUBMITTED A: ESOPHAGOGASTRIC JUNCTION, BIOPSY B: GASTRIC, ANTRAL, BIOPSY C: 30CM SIGMOID COLON, BIOPSY CLINICAL DATA LMP: NA, HEME POSITIVE STOOLS A: R/O VILLAFUERTE'S B: R/O H. PYLORI C: MUCOSAL PROLAPSE GROSS DESCRIPTION A. Received in formalin is one piece of de paz, soft tissue measuring 0.3 x 0.2 x 0.2 cm. Totally submitted in one cassette. B. Received in formalin is one piece of de paz, soft tissue measuring 0.2 x 0.2 x 0.2 cm. Totally submitted in one cassette. C. Received in formalin is one piece of de paz, soft tissue measuring 0.3 x 0.2 x 0.1 cm. Totally submitted in one cassette. Gross examination performed at [facility], [address] [place] [address] FFS 08/11/2019 8:43:13 PM Date of Report: 08/13/2019 Date of Procedure: 08/11/2019 Date of Receipt: 08/11/2019 Submitted by: BREEZY VINES MD Location: [facility] Diagnostic interpretation performed at [place] [address]. IA Number: [id number] [facility] NURSING PROGon 07-28-2019 NURSING PROG HNO ID: [id number] Author: Aung DominguezRn) ANASTASIIA Saravia Service: ? Author Type: Registered Nurse Type: Nursing Progress Note Filed: 07/29/2019 9:04 AM Note Text: PACC Nurse Progress Note History AND Physical: PACC Visit Date: 07/28/2019 Original HANDP Date: 07/28/2019 ED visit Date: 05/21/19 [facility] with chest pain, scanned in [facility] Outside HANDP Scanned Date: N/A Labs Within Last 6 Months: CBC: Date 07/11/2019 RBC 4.16, H/H 11.6/34.9 BMP/CMP: Date 07/11/2019 Creatinine 1.42, BUN 23 PT: Date 07/11/2019 [facility] Imaging Within Last 12 Months: CT Scan ABD/Pelvis 07/11/2019 see Care Everywhere Chest X-Ray 05/21/19 see Care Everywhere No acute cardiopulmonary findings. Negative for consolidation, focal atelectasis, pleural effusion or cardiomegaly. Cardiac Testing: ECHO Date: 09/27/18, Comment: EF 65%, scanned in [facility] Stress Test Date: 01/08/19 , Comment: No ischemia, scanned in [facility] Heart Cath Date: 05/22/19, Comment: Stent placed to LAD, scanned in [facility] US Carotid 09/27/18 scanned in [facility] Last Menstrual Period: LMP Date: None listed Postmenopausal >1yr: Yes, S/P Hysterectomy: No BMI Percentile (PEDS): N/A Risk Assessment: Cardiac Date: 07/15/2019 Cardiac clearance obtained from Dr Oviedo scanned in [facility]; Patient to REMAIN ON her anticoagulation for the procedures. Anesthesia Review: N/A Narrative: N/A Pre-op Considerations: CAD: s/p stent to LAD 05/2019 on Aspirin and Brilinta. Other stents placed 2012 and 2017. Received cardiac clearance, scanned into [facility] 07/15/2019, following Dr. Zarate. Patient to REMAIN ON her anticoagulation for the procedure. REGINE does not use CPAP Ckd (Chronic Kidney Disease) Stage 3 Hypothyroidism Grade 2 diastolic dysfunciton Carotid stenosis, stable under surveillance Mild-moderate PVD H/o right cervical radiculopathy [place]-hearing aides Lumbago Chart Check: COMPLETE Aung Saravia RN July 29, 2019 9:04 AM Normal [facility] HOSPon 07-16-2019 HOSP Patient:Charles Enamorado MRN: Height:5' 2(1.575 m) Weight:164 lb 3.2 oz (74.481 kg) Outpatient Medications as of 08/11/19: levothyroxine (SYNTHROID) 75 mcg tablet metoprolol tartrate, short acting, (LOPRESSOR) 50 mg tablet atorvastatin (LIPITOR) 20 mg tablet amLODIPine (NORVASC) 5 mg tablet ticagrelor (BRILINTA) 90 mg tablet ezetimibe (ZETIA) 10 mg tablet cholecalciferol, vitamin D3, 4,000 unit cap colestipol (COLESTID) 1 gram tablet Aspirin 81 mg Tab Admission/Clinic Administered Medications as of 08/11/19: lidocaine 10 mg/mL (1 %) 1-2 mg injection (XYLOCAINE) lactated ringers infusion Problem List: Incomplete bladder emptying [R33.9] Essential hypertension [I10] Irritable bowel syndrome [K58.9] Generalized anxiety disorder [F41.1] Generalized osteoarthrosis, unspecified site [M15.9] Retention of urine, unspecified [R33.9] Cervicalgia [M54.2] Diarrhea [R19.7] Diverticulosis of colon (without mention of hemorrhage) [K57.30] Bilateral carotid artery stenosis [I65.23] CAD (coronary artery disease) [I25.10] Myalgia and myositis, unspecified [AJE1003] Sleep apnea [G47.30] Onychia and paronychia of toe [L03.039] Lumbago [M54.5] Bursitis of left shoulder [M75.52] Right cervical radiculopathy [M54.12] Right carpal tunnel syndrome [G56.01] Hyperlipidemia [E78.5] Hypothyroidism [E03.9] Sensorineural hearing loss, bilateral [H90.3] Otalgia [H92.09] Bilateral impacted cerumen [H61.23] CKD (chronic kidney disease) stage 3, GFR 30-59 ml/min (HCC) [N18.3] PVD (peripheral vascular disease) ([facility]) [I73.9] Grade II diastolic dysfunction [I51.9] Heme positive stool [R19.5] Allergies: Ditropan [Oxybutynin Chloride] Lisinopril Date Verified: 08/11/19 Lab Values No results within the last 30 days for the following basenames: K,HCT Progress Notes ([facility]): Katey Solano APRN.GERIATRICIAN 08/07/2019 2:11 PM Signed SUBJECTIVE: Lisette Enamorado is a 79 year old female. HEMOGLOBIN/HEMATOCRIT due on 02/07/2018 INFLUENZA(1) due on 02/09/2019 LDL CHOLESTEROL due on 06/26/2019 SERUM CREATININE due on 06/26/2019 HPI Presents today reporting that she received a letter about need for a follow-up visit re: cholesterol. Admitted 05/[address] [facility], PCI TAMMY to mid LAD; aspirin indefinitely, brillinta at least one year, follow up with [place] [facility]. She reports not currently taking atorvastatin. States she manages her own medications. Reports recently seen by [place] [facility]ology. No current chest pain shortness breath palpitations edema is reported. Reports doing well at home no need for assistance per her report. Review of Systems Constitutional: Negative. Respiratory: Negative. Cardiovascular: Negative. Musculoskeletal: Positive for arthralgias (right ankle). Objective BP 142/80 (BP Site: Right Arm, BP Position: Sitting, BP Cuff Size: Regular Adult) Pulse 80 Resp 18 Wt 74.5 kg (164 lb 3.2 oz) BMI 30.03 kg/m? Physical Exam Constitutional: General: She is not in acute distress. Appearance: She is not ill-appearing or diaphoretic. HENT: Head: Normocephalic and atraumatic. Cardiovascular: Rate and Rhythm: Normal rate and regular rhythm. Pulmonary: Effort: Pulmonary effort is normal. Breath sounds: Normal breath sounds. Musculoskeletal: Right lower leg: No edema. Left lower leg: No edema. Comments: ROM slightly decreased c/w arthritis in joint, no pain or crepitus on exam, 2+DP no edema erythema or warmth Skin: General: Skin is warm and dry. Neurological: Mental Status: She is alert. ALLERGIES Allergen Reactions - Ditropan [Oxybutyni* GI Upset - Lisinopril Cough amLODIPine (NORVASC) 5 mg tablet Take 5 mg by mouth once daily. ticagrelor (BRILINTA) 90 mg tablet Take 1 tablet by mouth twice daily. atorvastatin (LIPITOR) 20 mg tablet Take 1 tablet by mouth daily at bedtime. ezetimibe (ZETIA) 10 mg tablet 10 mg. levothyroxine (SYNTHROID) 75 mcg tablet TAKE 1 TABLET DAILY BEFORE BREAKFAST COMPOUNDED PRESCRIPTION Bladder scan - to check for urinary retention related issues, before and after passing urine. fluticasone (FLONASE) 50 mcg/actuation nasal spray Use 2 Sprays in each nostril once daily. Rinse mouth after use. metoprolol tartrate, short acting, (LOPRESSOR) 50 mg tablet Take 1 tablet by mouth three times daily. nitroglycerin sublingual (NITROQUICK) 0.4 mg SL tablet Dissolve 1 tablet under the tongue as directed. DISSOLVE ONE(1) TABLET UNDER THE TOUNGUE NEEDED FOR CHEST PAIN,EVERY 5 MIN X3 cholecalciferol, vitamin D3, 4,000 unit cap Take 1 Dose by mouth once daily. colestipol (COLESTID) 1 gram tablet Take 1 tablet by mouth twice daily. Dr. Zarate Aspirin 81 mg Tab Take 1 tablet by mouth once daily. Take with food. PAST MEDICAL HISTORY Diagnosis Date - Diarrhea - Generalized anxiety disorder - Generalized osteoarthrosis, unspecified site lumbar and c-spine - Incomplete bladder emptying 05/11/2005 - Irritable bowel syndrome - Pure hypercholesterolemia - Unspecified essential hypertension Social History Tobacco Use - Smoking status: Never Smoker - Smokeless tobacco: Never Used Substance Use Topics - Alcohol use: Yes Frequency: 2-4 times a month Drinks per session: 1 or 2 Binge frequency: Never Comment: rare glass of wine - Drug use: No ASSESSMENT/PLAN: 1. Familial hypercholesterolemia - ICD9: 272.0, ICD10: E78.01 (primary diagnosis) - suboptimal control - Increase dose of atorvastatin as advised at last visit with PCP 2. Coronary artery disease involving [place] coronary artery of [place] heart without angina pectoris - ICD9: 414.01, ICD10: I25.10 No current chest pain or shortness of breath, following with [place] [facility]. 3. Coronary artery disease of [place] heart with stable angina pectoris, unspecified vessel or lesion type (HCC) - ICD9: 414.01, 413.9, ICD10: I25.118 - METOPROLOL TARTRATE 50 MG TABLET - NITROGLYCERIN 0.4 MG SUBLINGUAL TABLET 4. Acute right ankle pain - ICD9: 719.47, 338.19, ICD10: M25.571 Noted after going to the gym, preserved range of motion, no acute findings on exam, deferred as stretching exercises, she will use to help or to the gym and see how she does. She will let us know if she needs anything additional. Katey Solano APRN.GERIATRICIAN Progress Notes ([facility]): Robel Cordero 07/14/2019 3:20 PM Signed sent over cardiac clearance to be obtained prior to scheduling. Will call patient when we receive the OK to proceeded. Robel Cordero 07/16/2019 9:23 AM Signed 08-11-2019 Colon EGD [facility] Vital Signs Date Time Vital Sign Value Performing Clinician Bryan burnette 11-14-2024 10:07-0400 Body mass index (BMI) [Ratio] 27.58 kg/m2 Lisa Peter MD Work Phone: [facility] 11-14-2024 10:07-0400 Body weight 68.4 kg Lisa Peter MD Work Phone: [facility] 11-14-2024 10:07-0400 Diastolic blood pressure 66 mm[Hg] Lisa Peter MD Work Phone: [facility] 11-14-2024 10:07-0400 Heart rate 73 /min Lisa Peter MD Work Phone: [facility] 11-14-2024 10:07-0400 Respiratory rate 16 /min Lisa Peter MD Work Phone: [facility] 11-14-2024 10:07-0400 SaO2% (BldA) [Mass fraction] 99 % Lisa Peter MD Work Phone: [facility] 11-14-2024 10:07-0400 Systolic blood pressure 138 mm[Hg] Lisa Peter MD Work Phone: [facility] 10-13-2024 16:09-0400 Body mass index (BMI) [Ratio] 27.8 kg/m2 Lisa Peter MD Work Phone: [facility] 10-13-2024 16:09-0400 Body weight 68.95 kg Lisa Peter MD Work Phone: [facility] 10-13-2024 16:09-0400 Diastolic blood pressure 67 mm[Hg] Lisa Peter MD Work Phone: [facility] 10-13-2024 16:09-0400 Heart rate 75 /min Lisa Peter MD Work Phone: [facility] 10-13-2024 16:09-0400 Respiratory rate 16 /min Lisa Peter MD Work Phone: [facility] 10-13-2024 16:09-0400 Systolic blood pressure 159 mm[Hg] Lisa Peter MD Work Phone: [facility] 08-15-2024 09:47-0500 Body mass index (BMI) [Ratio] 26.98 kg/m2 Shante Lisa EVENTS INTERN.EXHIBIT SPECIALIST Work Phone: [facility] 08-15-2024 09:47-0500 Body weight 66.9 kg Shante Lisa EVENTS INTERN.EXHIBIT SPECIALIST Work Phone: [facility] 08-15-2024 09:47-0500 Diastolic blood pressure 72 mm[Hg] Shante Lisa EVENTS INTERN.EXHIBIT SPECIALIST Work Phone: [facility] 08-15-2024 09:47-0500 Heart rate 68 /min Shante Lisa EVENTS INTERN.EXHIBIT SPECIALIST Work Phone: [facility] 08-15-2024 09:47-0500 Respiratory rate 14 /min Shante Lisa EVENTS INTERN.EXHIBIT SPECIALIST Work Phone: [facility] 08-15-2024 09:47-0500 SaO2% (BldA) [Mass fraction] 96 % Shante Lisa EVENTS INTERN.EXHIBIT SPECIALIST Work Phone: [facility] 08-15-2024 09:47-0500 Systolic blood pressure 114 mm[Hg] Shante Lisa EVENTS INTERN.EXHIBIT SPECIALIST Work Phone: [facility] 06-24-2024 11:01-0500 Body mass index (BMI) [Ratio] 27.25 kg/m2 Eric Lockett PA-C Work Phone: [facility] 06-24-2024 11:01-0500 Body weight 67.59 kg Eric Bogner PA-C Work Phone: [facility] 06-24-2024 11:01-0500 Diastolic blood pressure 74 mm[Hg] Eric Bogner PA-C Work Phone: [facility] 06-24-2024 11:01-0500 Heart rate 66 /min Eric Bogner PA-C Work Phone: [facility] 06-24-2024 11:01-0500 Respiratory rate 16 /min Eric Bogner PA-C Work Phone: [facility] 06-24-2024 11:01-0500 SaO2% (BldA) [Mass fraction] 95 % Eric Bogner PA-C Work Phone: [facility] 06-24-2024 11:01-0500 Systolic blood pressure 136 mm[Hg] Eric Bogner PA-C Work Phone: [facility] 03-11-2024 08:58-0400 Body height 157.5 cm Eric Bogner PA-C Work Phone: [facility] 03-11-2024 08:58-0400 Body mass index (BMI) [Ratio] 26.34 kg/m2 Eric Bogner PA-C Work Phone: [facility] 03-11-2024 08:58-0400 Body temperature 97.81 [degF] Eric Bogner PA-C Work Phone: [facility] 03-11-2024 08:58-0400 Body weight 65.32 kg Eric Bogner PA-C Work Phone: [facility] 03-11-2024 08:58-0400 Diastolic blood pressure 70 mm[Hg] Eric Bogner PA-C Work Phone: [facility] 03-11-2024 08:58-0400 Heart rate 66 /min Eric Bogner PA-C Work Phone: [facility] 03-11-2024 08:58-0400 Respiratory rate 12 /min Eric Bogner PA-C Work Phone: [facility] 03-11-2024 08:58-0400 SaO2% (BldA) [Mass fraction] 97 % Eric Bogner PA-C Work Phone: [facility] 03-11-2024 08:58-0400 Systolic blood pressure 120 mm[Hg] Eric Bogner PA-C Work Phone: [facility] 03-04-2024 14:39-0400 Body height 157.5 cm Eric Bogner PA-C Work Phone: [facility] 03-04-2024 14:39-0400 Body mass index (BMI) [Ratio] 26.7 kg/m2 Eric Bogner PA-C Work Phone: [facility] 03-04-2024 14:39-0400 Body weight 66.22 kg Eric Bogner PA-C Work Phone: [facility] 03-04-2024 14:39-0400 Diastolic blood pressure 62 mm[Hg] Eric Bogner PA-C Work Phone: [facility] 03-04-2024 14:39-0400 Heart rate 87 /min Eric Bogner PA-C Work Phone: [facility] 03-04-2024 14:39-0400 Respiratory rate 14 /min Eric Bogner PA-C Work Phone: [facility] 03-04-2024 14:39-0400 SaO2% (BldA) [Mass fraction] 98 % Eric Bogner PA-C Work Phone: [facility] 03-04-2024 14:39-0400 Systolic blood pressure 136 mm[Hg] Eric Bogner PA-C Work Phone: [facility] 12-07-2023 15:19-0400 Body mass index (BMI) [Ratio] 26.16 kg/m2 Alber Max MD Work Phone: [facility] 12-07-2023 15:19-0400 Body temperature 98.1 [degF] Alber Max MD Work Phone: [facility] 12-07-2023 15:19-0400 Body weight 64.86 kg Alber Max MD Work Phone: [facility] 12-07-2023 15:19-0400 Diastolic blood pressure 68 mm[Hg] Alber Max MD Work Phone: [facility] 12-07-2023 15:19-0400 Heart rate 72 /min Alber Max MD Work Phone: [facility] 12-07-2023 15:19-0400 Respiratory rate 18 /min Alber Max MD Work Phone: [facility] 12-07-2023 15:19-0400 SaO2% (BldA) [Mass fraction] 99 % Alber Max MD Work Phone: [facility] 12-07-2023 15:19-0400 Systolic blood pressure 122 mm[Hg] Alber Max MD Work Phone: [facility] 10-08-2023 15:10-0400 Body mass index (BMI) [Ratio] 26.37 kg/m2 Raffy Moomaw EVENTS INTERN.EXHIBIT SPECIALIST Work Phone: [facility] 10-08-2023 15:10-0400 Body temperature 98.91 [degF] Raffy Moomaw EVENTS INTERN.EXHIBIT SPECIALIST Work Phone: [facility] 10-08-2023 15:10-0400 Body weight 65.4 kg Raffy Moomaw EVENTS INTERN.EXHIBIT SPECIALIST Work Phone: [facility] 10-08-2023 15:10-0400 Diastolic blood pressure 67 mm[Hg] Raffy Moomaw EVENTS INTERN.EXHIBIT SPECIALIST Work Phone: [facility] 10-08-2023 15:10-0400 Heart rate 67 /min Raffy Moomaw EVENTS INTERN.EXHIBIT SPECIALIST Work Phone: [facility] 10-08-2023 15:10-0400 Respiratory rate 21 /min Raffy Moomaw EVENTS INTERN.EXHIBIT SPECIALIST Work Phone: [facility] 10-08-2023 15:10-0400 SaO2% (BldA) [Mass fraction] 97 % Raffy Moomaw EVENTS INTERN.EXHIBIT SPECIALIST Work Phone: [facility] 10-08-2023 15:10-0400 Systolic blood pressure 124 mm[Hg] Raffy Moomaw EVENTS INTERN.EXHIBIT SPECIALIST Work Phone: [facility] 08-27-2023 11:10-0400 Diastolic blood pressure 72 mm[Hg] Katey Solano EVENTS INTERN.GERIATRICIAN Work Phone: [facility] 08-27-2023 11:10-0400 Heart rate 74 /min Katey Solano EVENTS INTERN.GERIATRICIAN Work Phone: [facility] 08-27-2023 11:10-0400 Systolic blood pressure 128 mm[Hg] Katey Solano EVENTS INTERN.GERIATRICIAN Work Phone: [facility] 08-27-2023 11:07-0400 Body weight 64.86 kg Katey Solano EVENTS INTERN.GERIATRICIAN Work Phone: [facility] 08-27-2023 11:07-0400 Respiratory rate 16 /min Katey Solano EVENTS INTERN.GERIATRICIAN Work Phone: [facility] 07-31-2023 15:25-0500 Body temperature 99.61 [degF] Barbara Norma EVENTS INTERN.EXHIBIT SPECIALIST Work Phone: [facility] 07-31-2023 15:25-0500 Body weight 66.13 kg Barbara Norma EVENTS INTERN.EXHIBIT SPECIALIST Work Phone: [facility] 07-31-2023 15:25-0500 Diastolic blood pressure 62 mm[Hg] Barbara Norma EVENTS INTERN.EXHIBIT SPECIALIST Work Phone: [facility] 07-31-2023 15:25-0500 Heart rate 75 /min Barbara Norma EVENTS INTERN.EXHIBIT SPECIALIST Work Phone: [facility] 07-31-2023 15:25-0500 Respiratory rate 18 /min Barbara Norma EVENTS INTERN.EXHIBIT SPECIALIST Work Phone: [facility] 07-31-2023 15:25-0500 SaO2% (BldA) [Mass fraction] 96 % Barbara Marcelinok EVENTS INTERN.EXHIBIT SPECIALIST Work Phone: [facility] 07-31-2023 15:25-0500 Systolic blood pressure 122 mm[Hg] Barbara Marcelinok EVENTS INTERN.EXHIBIT SPECIALIST Work Phone: [facility] 07-24-2023 10:47-0500 Body temperature 100.99 [degF] Nisreen Denbow PA-C Work Phone: [facility] 07-24-2023 10:47-0500 Body weight 63.69 kg Nisreen Denbow PA-C Work Phone: [facility] 07-24-2023 10:47-0500 Diastolic blood pressure 66 mm[Hg] Nisreen Denbow PA-C Work Phone: [facility] 07-24-2023 10:47-0500 Heart rate 91 /min Nisreen Denbow PA-C Work Phone: [facility] 07-24-2023 10:47-0500 Respiratory rate 20 /min Nisreen Denbow PA-C Work Phone: [facility] 07-24-2023 10:47-0500 SaO2% (BldA) [Mass fraction] 99 % Nisreen Denbow PA-C Work Phone: [facility] 07-24-2023 10:47-0500 Systolic blood pressure 115 mm[Hg] Nisreen Denbow PA-C Work Phone: [facility] 07-13-2023 20:34-0500 Diastolic blood pressure 71 mm[Hg] Dr. Lisa Peter Work Phone: [facility] 07-13-2023 20:34-0500 Heart rate 69 /min Dr. Lisa Peter Work Phone: [facility] 07-13-2023 20:34-0500 Respiratory rate 17 /min Dr. Lisa Peter Work Phone: 4(551)158-459234 [place] [address] 07-13-2023 20:34-0500 SaO2% (BldA) [Mass fraction] 98 % Dr. Lisa Peter Work Phone: 6(797)123-043234 [place] [address] 07-13-2023 20:34-0500 Systolic blood pressure 138 mm[Hg] Dr. Lisa Peter Work Phone: 7(673)669-150334 [place] [address] 07-13-2023 17:34-0500 Body height 157.[address] Lisa Peter Work Phone: 3(754)045-591034 [place] [address] 07-13-2023 17:34-0500 Body mass index (BMI) [Ratio] 27.1 kg/m2 Dr. Lisa Peter Work Phone: 4(033)565-304134 [place] [address] 07-13-2023 17:34-0500 Body temperature 98.2 [degF] Dr. Lisa Peter Work Phone: 6(854)600-370034 [place] [address] 07-13-2023 17:34-0500 Body weight 67.[address] Lisa Peter Work Phone: 1(754)812-894734 [place] [address] 07-05-2023 10:25-0500 Body mass index (BMI) [Ratio] 27.3 kg/m2 Dr. Lisa Peter Work Phone: 5(041)906-097834 [place] [address] 07-05-2023 10:25-0500 Body weight 65.[address] Lisa Peter Work Phone: 4(122)557-442934 [place] [address] 07-05-2023 10:25-0500 Diastolic blood pressure 77 mm[Hg] Dr. Lisa Peter Work Phone: 4(631)287-418234 [place] [address] 07-05-2023 10:25-0500 Heart rate 65 /min Dr. Lisa Peter Work Phone: 7(005)829-336834 [place] [address] 07-05-2023 10:25-0500 Respiratory rate 16 /min Dr. Lisa Peter Work Phone: 8(529)457-560334 [place] [address] 07-05-2023 10:25-0500 Systolic blood pressure 146 mm[Hg] Dr. Lisa Peter Work Phone: 2(651)351-261034 [place] [address] 05-14-2023 13:16-0500 Body temperature 98 [degF] Dr. Lisa Peter Work Phone: 7(580)241-453634 [place] [address] 05-14-2023 13:16-0500 Body weight 66.[address] Lisa Peter Work Phone: 1(407)777-747134 [place] [address] 05-14-2023 13:16-0500 Diastolic blood pressure 68 mm[Hg] Dr. Lisa Peter Work Phone: 8(852)372-620734 [place] [address] 05-14-2023 13:16-0500 Heart rate 62 /min Dr. Lisa Peter Work Phone: 1(919)906-091034 [place] [address] 05-14-2023 13:16-0500 Respiratory rate 16 /min Dr. Lisa Peter Work Phone: 1(209)592-788734 [place] [address] 05-14-2023 13:16-0500 SaO2% (BldA) [Mass fraction] 99 % Dr. Lisa Peter Work Phone: 4(965)497-668634 [place] [address] 05-14-2023 13:16-0500 Systolic blood pressure 129 mm[Hg] Dr. Lisa Peter Work Phone: 2(886)665-884034 [place] [address] 03-07-2023 10:45-0400 Body temperature 98 [degF] Dr. Lisa Peter Work Phone: 4(633)256-180034 [place] [address] 03-07-2023 10:45-0400 Body weight 65.[address] Lisa Peter Work Phone: 0(910)456-870934 [place] [address] 03-07-2023 10:45-0400 Diastolic blood pressure 72 mm[Hg] Dr. Lisa Peter Work Phone: 4(883)020-800034 [place] [address] 03-07-2023 10:45-0400 Heart rate 70 /min Dr. Lisa Peter Work Phone: 2(411)196-734634 [place] [address] 03-07-2023 10:45-0400 Respiratory rate 16 /min Dr. Lisa Peter Work Phone: [facility] 03-07-2023 10:45-0400 SaO2% (BldA) [Mass fraction] 98 % Dr. Lisa Peter Work Phone: [facility] 03-07-2023 10:45-0400 Systolic blood pressure 148 mm[Hg] Dr. Lisa Peter Work Phone: [facility] 01-30-2023 09:35-0400 Body height 157.5 cm Chanell Givens MD Work Phone: [facility] 01-30-2023 09:35-0400 Body temperature 97.5 [degF] Chanell Givens MD Work Phone: [facility] 01-30-2023 09:35-0400 Body weight 64.77 kg Chanell Givens MD Work Phone: [facility] 01-30-2023 09:35-0400 Diastolic blood pressure 68 mm[Hg] Chanell Givens MD Work Phone: [facility] 01-30-2023 09:35-0400 Heart rate 71 /min Chanell Givens MD Work Phone: [facility] 01-30-2023 09:35-0400 Respiratory rate 14 /min Chanell Givens MD Work Phone: [facility] 01-30-2023 09:35-0400 SaO2% (BldA) [Mass fraction] 98 % Chanell Givens MD Work Phone: [facility] 01-30-2023 09:35-0400 Systolic blood pressure 108 mm[Hg] Chanell Givens MD Work Phone: [facility] 01-18-2023 16:47-0400 Body weight 64.41 kg Darius Mace MD Work Phone: [facility] 01-18-2023 16:47-0400 Diastolic blood pressure 56 mm[Hg] Darius Mace MD Work Phone: [facility] 01-18-2023 16:47-0400 Heart rate 75 /min Darius Mace MD Work Phone: [facility] 01-18-2023 16:47-0400 SaO2% (BldA) [Mass fraction] 96 % Darius Mace MD Work Phone: [facility] 01-18-2023 16:47-0400 Systolic blood pressure 95 mm[Hg] Darius Mace MD Work Phone: [facility] 01-02-2023 10:01-0400 Body height 154.[address] Lisa Peter Work Phone: [facility] 01-02-2023 10:01-0400 Body mass index (BMI) [Ratio] 26.8 kg/m2 Dr. Lisa Peter Work Phone: [facility] 01-02-2023 10:01-0400 Body weight 64.[address] Lisa Peter Work Phone: [facility] 01-02-2023 10:01-0400 Diastolic blood pressure 73 mm[Hg] Dr. Lisa Peter Work Phone: [facility] 01-02-2023 10:01-0400 Heart rate 58 /min Dr. Lisa Peter Work Phone: [facility] 01-02-2023 10:01-0400 Respiratory rate 18 /min Dr. Lisa Peter Work Phone: [facility] 01-02-2023 10:01-0400 SaO2% (BldA) [Mass fraction] 100 % Dr. Lisa Peter Work Phone: [facility] 01-02-2023 10:01-0400 Systolic blood pressure 134 mm[Hg] Dr. Lisa Peter Work Phone: [facility] 10-13-2022 11:39-0400 Body temperature 98.4 [degF] Jillian Older EVENTS INTERN.EXHIBIT SPECIALIST Work Phone: [facility] 10-13-2022 11:39-0400 Body weight 67.13 kg Jillian Older EVENTS INTERN.EXHIBIT SPECIALIST Work Phone: [facility] 10-13-2022 11:39-0400 Diastolic blood pressure 66 mm[Hg] Jillian Older EVENTS INTERN.EXHIBIT SPECIALIST Work Phone: [facility] 10-13-2022 11:39-0400 Heart rate 64 /min Jillian Older EVENTS INTERN.EXHIBIT SPECIALIST Work Phone: [facility] 10-13-2022 11:39-0400 Respiratory rate 16 /min Jillian Older EVENTS INTERN.EXHIBIT SPECIALIST Work Phone: [facility] 10-13-2022 11:39-0400 SaO2% (BldA) [Mass fraction] 98 % Jillian Older EVENTS INTERN.EXHIBIT SPECIALIST Work Phone: [facility] 10-13-2022 11:39-0400 Systolic blood pressure 116 mm[Hg] Jillian Older EVENTS INTERN.EXHIBIT SPECIALIST Work Phone: [facility] 07-10-2022 13:43-0500 Body height 157.5 cm Anvi Casillas MD Work Phone: [facility] 07-10-2022 13:43-0500 Body weight 65.32 kg Avni Casillas MD Work Phone: [facility] 05-17-2022 09:29-0500 Body height 154.[address] Lisa Peter Work Phone: [facility] 05-17-2022 09:29-0500 Body mass index (BMI) [Ratio] 27.8 kg/m2 Dr. Lisa Peter Work Phone: [facility] 05-17-2022 09:29-0500 Body weight 66.[address] Lisa Peter Work Phone: [facility] 05-17-2022 09:29-0500 Diastolic blood pressure 59 mm[Hg] Dr. Lisa Peter Work Phone: [facility] 05-17-2022 09:29-0500 Heart rate 68 /min Dr. Lisa Peter Work Phone: [facility] 05-17-2022 09:29-0500 Respiratory rate 16 /min Dr. Lisa Peter Work Phone: [facility] 05-17-2022 09:29-0500 SaO2% (BldA) [Mass fraction] 99 % Dr. Lisa Peter Work Phone: [facility] 05-17-2022 09:29-0500 Systolic blood pressure 111 mm[Hg] Dr. Lisa Peter Work Phone: [facility] 03-17-2022 11:11-0400 Body weight 67.13 kg Jillian Older EVENTS INTERN.EXHIBIT SPECIALIST Work Phone: [facility] 03-17-2022 11:11-0400 Diastolic blood pressure 62 mm[Hg] Jillian Older EVENTS INTERN.EXHIBIT SPECIALIST Work Phone: [facility] 03-17-2022 11:11-0400 Heart rate 64 /min Jillian Older EVENTS INTERN.EXHIBIT SPECIALIST Work Phone: [facility] 03-17-2022 11:11-0400 Respiratory rate 16 /min Jillian Older EVENTS INTERN.EXHIBIT SPECIALIST Work Phone: [facility] 03-17-2022 11:11-0400 Systolic blood pressure 128 mm[Hg] Jillian Older EVENTS INTERN.EXHIBIT SPECIALIST Work Phone: [facility] 12-08-2021 08:22-0400 Body weight 67.59 kg Jillian Older EVENTS INTERN.EXHIBIT SPECIALIST Work Phone: [facility] 12-08-2021 08:22-0400 Diastolic blood pressure 66 mm[Hg] Jillian Older EVENTS INTERN.EXHIBIT SPECIALIST Work Phone: [facility] 12-08-2021 08:22-0400 Heart rate 66 /min Jillian Older EVENTS INTERN.EXHIBIT SPECIALIST Work Phone: [facility] 12-08-2021 08:22-0400 Respiratory rate 14 /min Jillian Older EVENTS INTERN.EXHIBIT SPECIALIST Work Phone: [facility] 12-08-2021 08:22-0400 Systolic blood pressure 122 mm[Hg] Jillian Older EVENTS INTERN.EXHIBIT SPECIALIST Work Phone: [facility] 11-29-2021 08:28-0400 Body height 154.94 cm [facility] Work Phone: 11-29-2021 08:28-0400 Body mass index (BMI) [Ratio] 28 kg/m2 [facility] Work Phone: 11-29-2021 08:28-0400 Body temperature 97 [degF] [facility] Work Phone: 11-29-2021 08:28-0400 Body weight 67.49 kg [facility] Work Phone: 11-29-2021 08:28-0400 Diastolic blood pressure 60 mm[Hg] [facility] Work Phone: 11-29-2021 08:28-0400 Heart rate 73 /min [facility] Work Phone: 11-29-2021 08:28-0400 Respiratory rate 17 /min [facility] Work Phone: 11-29-2021 08:28-0400 SaO2% (BldA) [Mass fraction] 98 % [facility] Work Phone: 11-29-2021 08:28-0400 Systolic blood pressure 151 mm[Hg] [facility] Work Phone: Encounters Encounter Date Encounter Type Care Provider Facility Start: 11-17-2024 ambulatory LISA PETER Facility:[facility] Start: 11-17-2024 End: 11-17-2024 Subsequent hospital visit by physician Moni [facility] ([facility]) Work Phone: Cat Scan Comment on above: Pulmonary nodule [R9 1.1] Start: 11-14-2024 End: 11-14-2024 Office outpatient visit 40 minutes Lisa Peter MD Work Phone: [facility] [place] Comment on above: Pulmonary nodule (Pr imary Dx); Chronic cough; Mixed stress and urge urinary incontinence; Essential hypertension; Diarrhea, unspecified type; Hypothyroidism due to medication Start: 11-14-2024 End: 11-14-2024 ambulatory LISA PETER Facility:[facility] Start: 11-13-2024 End: 11-13-2024 Telephone encounter Lisa Peter MD Work Phone: [facility] [place] Comment on above: Patient Update Start: 10-28-2024 End: 10-28-2024 ambulatory ERIC LOCKETT Facility:[facility] Start: 10-24-2024 End: 10-24-2024 Patient encounter procedure Rob Testkameron Work Phone: Podiatry Comment on above: Onychomycosis (Prima ry Dx); Hammer toes of both feet; Bilateral bunions; Diminished pulses in lower extremity; Pain in toe of left foot; Pain in toe of right foot Start: 10-24-2024 End: 10-24-2024 ambulatory ROB RAI Facility:[facility] Start: 10-24-2024 End: 10-24-2024 Subsequent hospital visit by physician Yasmine [facility] [place] Suarez Work Phone: Radiology Comment on above: Bilateral foot pain [M79.671, M79.672] Start: 10-15-2024 End: 10-15-2024 Refill Lisa Peter MD Work Phone: [facility] [place] Comment on above: Refill Request Start: 10-13-2024 End: 10-13-2024 Office outpatient visit 15 minutes Lisa Peter MD Work Phone: [facility] [place] Comment on above: Hammer toes of both feet (Primary Dx); Bilateral bunions; Grade II diastolic dysfunction; Coronary artery disease involving [place] coronary artery of [place] heart without angina pectoris Start: 10-13-2024 End: 10-13-2024 ambulatory LISA PETER Facility:[facility] Start: 10-13-2024 End: 10-15-2024 Telephone encounter Lisa Peter MD Work Phone: [facility] [place] Comment on above: Patient Update; Chacho javier Start: 08-22-2024 End: 10-22-2024 Follow-up encounter Shante Yeboah APRN.CNP Work Phone: [facility] [place] Start: 08-15-2024 End: 08-15-2024 ambulatory [facility] Facility:[facility] Start: 08-15-2024 End: 08-15-2024 Patient encounter procedure Shante Yeboah APRN.EXHIBIT SPECIALIST Work Phone: [facility] [place] Comment on above: Acquired hypothyroid ism (Primary Dx); Hyperlipidemia, unspecified hyperlipidemia type; Flu-like symptoms Start: 08-13-2024 End: 10-13-2024 Follow-up encounter Eric Lockett PA-C Work Phone: [facility] [place] Start: 08-12-2024 End: 08-12-2024 Telephone encounter Lisa Peter MD Work Phone: [facility] [place] Comment on above: Patient Update Start: 08-12-2024 End: 08-12-2024 ambulatory [facility] Facility:[facility] Start: 08-12-2024 End: 08-12-2024 Office outpatient visit 25 minutes Eric Lockett PA-C Work Phone: [facility] [place] Comment on above: Acute cough (Primary Dx); Body aches; Nausea Start: 07-17-2024 End: 07-17-2024 ambulatory Lisa Peter Facility:[facility] Start: 07-02-2024 End: 07-02-2024 ambulatory Lisa Peter Facility:[facility] Start: 07-02-2024 End: 07-02-2024 Subsequent hospital visit by physician [facility] Work Phone: Radiology Comment on above: Left leg pain [M79.6 05] Start: 06-24-2024 End: 06-24-2024 Subsequent hospital visit by physician Yasmine [facility] [place] Work Phone: Radiology Comment on above: Left leg pain [M79.6 05] Start: 06-24-2024 End: 06-24-2024 Office outpatient visit 25 minutes Eric Lockett PA-C Work Phone: [facility] [place] Comment on above: Left leg pain (Prima ry Dx); Leg cramp Start: 06-24-2024 End: 06-24-2024 ambulatory ERIC LOCKETT Facility:[facility] Start: 04-29-2024 ambulatory Edu Caceres Facility:[facility] Start: 04-29-2024 End: 04-29-2024 ambulatory Edu Washington Facility:[facility] Start: 04-14-2024 End: 04-14-2024 Refill Lisa Peter MD Work Phone: Internal [facility] [place] Comment on above: Refill Request Start: 04-07-2024 End: 04-07-2024 Emergency department patient visit Avni Anderson Facility:[facility] Start: 03-27-2024 End: 03-27-2024 ambulatory Lisa Peter MD Work Phone: [facility] [place] Comment on above: Dizziness Start: 03-11-2024 End: 03-12-2024 Telephone encounter Lisa Peter MD Work Phone: [facility] [place] Comment on above: Patient Request Start: 03-11-2024 End: 03-11-2024 ambulatory LISA PETER Facility:[facility] Start: 03-11-2024 End: 03-11-2024 Office outpatient visit 25 minutes Eric Lockett PA-C Work Phone: [facility] [place] Comment on above: Situational depressi on (Primary Dx) Start: 03-10-2024 End: 03-12-2024 Refill Lisa Peter MD Work Phone: Internal [facility] [place] Comment on above: Refill Request Start: 03-05-2024 End: 03-05-2024 [facility] [place] Start: 03-05-2024 End: 03-05-2024 Patient encounter procedure Chad Jara MA [facility] [place] Comment on above: Population Health Na vigation Outreach (Alyssa Das PCSA/) Start: 03-04-2024 End: 03-04-2024 Office outpatient visit 25 minutes Eric Lockett PA-C Work Phone: [facility] [place] Comment on above: Acute constipation ( Primary Dx); LLQ abdominal pain; Left lower quadrant abdominal pain; Skin rash Start: 03-04-2024 End: 03-04-2024 ambulatory LISA PETER Facility:[facility] Start: 02-28-2024 End: 02-28-2024 ambulatory Yelena Landryzero [facility] [place] Start: 02-28-2024 End: 02-28-2024 Patient encounter procedure Yelena Panzero [facility] [place] Comment on above: Population Health Na vigation Outreach (omw) Start: 01-11-2024 Refill Lisa Toussaint Work Phone: Internal Medicine [place] Start: 12-31-2023 ambulatory Yelena Panzero [facility] [place] Start: 12-31-2023 Patient encounter procedure Yelena Panzero [facility] [place] Comment on above: Population Health Na vigation Outreach (omw) Start: 12-28-2023 ambulatory [facility] [place] Start: 12-28-2023 Patient encounter procedure Chad Jara MA [facility] [place] Comment on above: Population Health Na vigation Outreach ([facility] CURRENT ROSTER workbench - AWV, Care gaps, HCC gap closure - [place] PCSA) Start: 12-07-2023 End: 12-07-2023 Office outpatient visit 15 minutes Alber Max MD Work Phone: Internal Medicine [place] Comment on above: Diarrhea, unspecifie d type (Primary Dx); Rectal irritation Start: 12-07-2023 End: 12-07-2023 ambulatory Lisa Peter MD Work Phone: Internal Medicine [place] Comment on above: Rectal Problem Medication Question Start: 12-06-2023 End: 12-06-2023 ambulatory Obey Ballard SCHEDULING MANAGER Facility:[facility] Start: 10-29-2023 ambulatory Yelenaeva Landryzero [facility] [place] Start: 10-29-2023 Patient encounter procedure Yelena Panzero [facility] [place] Comment on above: Population Health Na vigation Outreach (OM[facility]) Start: 10-26-2023 End: 10-26-2023 ambulatory Cecilia Berg SCHEDULING MANAGER Facility:[facility] Start: 10-08-2023 End: 10-08-2023 Patient encounter procedure Raffy Hanley EVENTS INTERN.EXHIBIT SPECIALIST Work Phone: [facility] [facility] Comment on above: Tick bite of multipl e sites (Primary Dx) Start: 08-27-2023 End: 08-27-2023 Office outpatient visit 15 minutes Katey Solano EVENTS INTERN.GERIATRICIAN Work Phone: Internal Medicine [place] Comment on above: Acute pain of right shoulder (Primary Dx); Injury of right shoulder, subsequent encounter Start: 08-03-2023 Telephone encounter Lisa gomez MD Work Phone: [facility] [place] Comment on above: Appointment Start: 07-31-2023 End: 07-31-2023 Subsequent hospital visit by physician [facility] [place] Work Phone: Radiology Comment on above: Acute pain of right shoulder [M25.511] Start: 07-31-2023 End: 07-31-2023 Patient encounter procedure Barbara Green TIN.EXHIBIT SPECIALIST Work Phone: [facility] [facility] Comment on above: Acute pain of right shoulder (Primary Dx) Start: 07-26-2023 Telephone encounter Nisreen Chauhan PA-C Work Phone: Internal Medicine [place] Comment on above: Results Start: 07-24-2023 End: 07-24-2023 Patient encounter procedure Nisreen Bermudez PA-C Work Phone: Internal Medicine [place] Comment on above: Flu-like symptoms (P rimary Dx); Colitis; Blood in stool; Difficulty urinating; Urinary frequency Start: 07-23-2023 End: 07-23-2023 Subsequent hospital visit by physician [facility] Work Phone: Radiology Comment on above: Liver cyst [K76.89] Start: 07-20-2023 Telephone encounter Lisa gomez MD Work Phone: [facility] [place] Comment on above: Patient Question Start: 07-13-2023 End: 07-13-2023 Emergency department patient visit Dr. Lisa Peter Work Phone: [facility]-Emergency Department Work Phone: Start: 07-05-2023 End: 07-05-[address] Lisa Peter Work Phone: [facility] Work Phone: Start: 05-14-2023 End: 05-14-[address] Lisa Peter Work Phone: [facility] Work Phone: Start: 05-11-2023 End: 05-11-2023 ambulatory Maru House PT Work Phone: [facility] Comment on above: Incontinence of fece s, unspecified fecal incontinence type (Primary Dx) Start: 04-26-2023 Refill Lisa Toussaint Work Phone: Internal Medicine [place] Comment on above: Refill Request Start: 04-09-2023 End: 04-09-[address] Lisa Peter Work Phone: [facility] Work Phone: Start: 04-09-2023 End: 04-09-[address] Lisa Peter Work Phone: [facility] Work Phone: Start: 03-20-2023 End: 03-20-2023 ambulatory Maru House PT Work Phone: [facility] Comment on above: Incontinence of fece s, unspecified fecal incontinence type (Primary Dx) Start: 03-07-2023 End: 03-07-[address] Lisa Peter Work Phone: [facility]-Laboratory Work Phone: Start: 03-07-2023 End: 03-07-[address] Lisa Peter Work Phone: [facility] Surgery Work Phone: Start: 03-03-2023 Refill Lisa Toussaint Work Phone: Internal Medicine [place] Comment on above: Refill Request Start: 02-01-2023 Telephone encounter Darius Mace MD Work Phone: Family [facility] Comment on above: Patient Question Start: 01-31-2023 Refill Lisa Toussaint Work Phone: Family [facility] Comment on above: Refill Request Start: 01-30-2023 End: 01-30-2023 Patient encounter procedure Chanell Givens MD Work Phone: General Surgery Comment on above: Incontinence of fece s, unspecified fecal incontinence type; Rectal bleeding Start: 01-30-2023 End: 01-30-2023 Subsequent hospital visit by physician [facility] Work Phone: Radiology Comment on above: Kidney cyst, acquire d [N28.1] Lung nodules [R91.8] Start: 01-18-2023 End: 01-18-2023 Patient encounter procedure Darius Mace MD Work Phone: [facility] Comment on above: Colitis (Primary Dx) ; Rectal bleeding; Liver cyst; Kidney cyst, acquired; Lung nodule; Lung nodules; Hyperlipidemia, unspecified hyperlipidemia type Start: 01-17-2023 Non-patient / Non-visit Dr. Hussein Peter Work Phone: [facility] Work Phone: Start: 01-17-2023 Non-patient / Non-visit Dr. Hussein Peter Work Phone: [facility] Start: 01-17-2023 End: 01-17-[address] Lisa Peter Work Phone: [facility] Work Phone: Start: 01-17-2023 End: 01-17-[address] Lisa Peter Work Phone: [facility]Cardiovascula r Services Work Phone: Start: 01-09-2023 ambulatory Lisa Toussaint Work Phone: Internal Medicine [place] Comment on above: Rectal Problem Start: 01-02-2023 End: 01-02-[address] Lisa Peter Work Phone: [facility] Work Phone: Start: 12-11-2022 ambulatory Lisa Toussaint Work Phone: Internal Medicine [place] Comment on above: Back Pain Start: 10-23-2022 End: 10-23-2022 Subsequent hospital visit by physician [facility] (I-Stat) Work Phone: Cat Scan Comment on above: Pulmonary nodule [R9 1.1] Start: 10-13-2022 End: 10-13-2022 Patient encounter procedure Jillian Wray APRN.CNP Work Phone: Internal Medicine [place] Comment on above: Muscle cramps (Prima ry Dx); RLS (restless legs syndrome); Sinus pressure; Dysfunction of Eustachian tube, unspecified laterality; PVD (peripheral vascular disease) ([facility]) Start: 10-10-2022 ambulatory Lisa Toussaint Work Phone: Internal [facility] Start: 08-10-2022 End: 08-10-[address] Lisa Peter Work Phone: [facility] Work Phone: Start: 08-10-2022 End: 08-10-[address] Lisa Peter Work Phone: [facility]-Physical Therapy Start: 07-25-2022 Telephone encounter Lisa gomez MD Work Phone: Internal Medicine [place] Comment on above: Results Start: 07-10-2022 End: 07-10-2022 Patient encounter procedure Avni Casillas MD Work Phone: Orthopaedics Comment on above: Cervical stenosis of spinal canal (Primary Dx); Carpal tunnel syndrome of right wrist Start: 06-08-2022 Refill Lisa Toussaint Work Phone: Internal Medicine [place] Comment on above: Refill Request Start: 05-31-2022 Telephone encounter Lisa gomez MD Work Phone: Internal Medicine [place] Comment on above: Ear Pain Start: 05-26-2022 Telephone encounter Lisa gomez MD Work Phone: Internal Medicine [place] Comment on above: Patient Update Start: 05-19-2022 End: 05-19-[address] Lisa Peter Work Phone: [facility] Work Phone: Start: 05-19-2022 End: 05-19-[address] Lisa Peter Work Phone: [facility]-Laboratory Start: 05-17-2022 End: 05-17-[address] Lisa Peter Work Phone: [facility] [facility] Start: 04-21-2022 ambulatory No Pcp (Historical) Ref erring Physician Start: 04-06-2022 Refill Lisa Toussaint Work Phone: Internal Medicine [place] Comment on above: Refill Request Start: 04-04-2022 ambulatory [facility] [place] Comment on above: test results Start: 04-04-2022 E-mail encounter fro m caregiver [facility] [place] Start: 04-03-2022 Telephone encounter Jillian Wray APRN.EXHIBIT SPECIALIST Work Phone: Internal Medicine [place] Comment on above: Results Start: 03-31-2022 End: 03-31-2022 ambulatory Emg 850) Neurology Comment on above: EMG Start: 03-31-2022 End: 03-31-2022 Patient encounter procedure Emg 2 Neur Mike (Max Weight: 850) MIKE Start: 03-29-2022 ambulatory Lisa Toussaint Work Phone: Internal Medicine [place] Comment on above: presign in Start: 03-23-2022 Telephone encounter Jillian Wray APRN.EXHIBIT SPECIALIST Work Phone: Internal Medicine [place] Comment on above: Results Start: 03-17-2022 End: 03-17-2022 Subsequent hospital visit by physician Xr [facility] [place] Work Phone: Radiology Comment on above: Numbness and tinglin g of right arm [R20.0, R20.2] Start: 03-17-2022 End: 03-17-2022 Patient encounter procedure Jillian Wray APRN.EXHIBIT SPECIALIST Work Phone: Internal Medicine [place] Comment on above: Numbness and tinglin g of right arm (Primary Dx); Acute pain of right shoulder Start: 02-22-2022 Refill Lisa Toussaint Work Phone: [facility] [place] Comment on above: Refill Request Start: 12-16-2021 Telephone encounter Lisa gomez MD Work Phone: Internal Medicine [place] Comment on above: Results Start: 12-08-2021 End: 12-08-2021 Patient encounter procedure Jillian Wray APRN.EXHIBIT SPECIALIST Work Phone: Internal Medicine [place] Comment on above: Diarrhea, unspecifie d type (Primary Dx); History of IBS; Grief reaction; Essential hypertension; Hypertensive kidney disease with stage 3 chronic kidney disease, unspecified whether stage 3a or 3b CKD (HCC); Hypothyroidism, unspecified type; Hyperlipidemia, unspecified hyperlipidemia type; Closed nondisplaced fracture of head of right radius, sequela; Gastroesophageal reflux disease without esophagitis Start: 11-29-2021 End: 11-29-2021 Emergency department patient visit [facility]Emergency Department Start: 10-31-2021 Telephone encounter Lisa gomez MD Work Phone: Internal Medicine [place] Comment on above: Orders (placard) Start: 10-26-2021 Refill Lisa Toussaint Work Phone: Family Medicine [place] Comment on above: Refill Request Start: 10-20-2021 Telephone encounter Lisa gomez MD Work Phone: Internal Medicine [place] Comment on above: Handicap placard for m Start: 07-21-2021 End: 07-21-2021 Subsequent hospital visit by physician Yasmine Fhrobbi Das Work Phone: Radiology Comment on above: Lumbar radiculopathy [M54.16] Procedures Date Procedure Procedure Detail Performing Clinician Start: 08-12-2024 Urnls dip stick/tablet rgnt auto w/o microscopy Eric Lockett PA-C Work Phone: Start: 07-02-2024 Dup-scan xtr veins unilateral/limited study Eric Lockett PA-C Work Phone: Start: 07-31-2023 Radex shoulder complete minimum 2 views Barbara Green EVENTS INTERN.EXHIBIT SPECIALIST Work Phone: Start: 07-24-2023 COVID & INFLUENZA A/B NAAT, ROUTINE Nisreen RITCHIEC Work Phone: Start: 07-23-2023 Us abdominal real time w/image limited Darius Mace MD Work Phone: Start: 07-13-2023 Computed tomography of abdomen and pelvis with intravenous contrast Dr. Lisa Peter Work Phone: Start: 07-13-2023 Measurement of occult blood in stool specimen using immunoassay Dr. Lisa Peter Work Phone: Start: 04-09-2023 CT angiography of head and neck Dr. Lisa Peter Work Phone: Start: 01-30-2023 Us retroperitoneal real time w/image complete Darius Mace MD Work Phone: Start: 01-30-2023 Ct thorax w/o contrast material Darius Mace MD Work Phone: Start: 10-23-2022 Ct thorax w/o contrast material Lisa Peter MD Work Phone: Start: 03-31-2022 Nerve conduction studies 5-6 studies Jillian Wray EVENTS INTERN.EXHIBIT SPECIALIST Work Phone: Start: 03-17-2022 Radex spine cervical 2 or 3 views Jillian Wray EVENTS INTERN.EXHIBIT SPECIALIST Work Phone: Start: 11-29-2021 Plain x-ray of elbow Start: 08-08-2021 Colonoscopy Lisa Peter MD Work Phone: Start: 07-21-2021 Radex hip unilateral with pelvis 2-3 views Lisa Peter MD Work Phone: Start: 05-22-2019 History of placement of stent for coronary artery disease History of coronary artery stent placement Plan of Treatment Date Care Activity Detail Author Start: 08-25-2027 Urine microalbumin profile [facility] Start: 08-16-2027 Diabetes Screening Diabetes Screenin g [facility] Start: 06-24-2027 Diabetes Screening Diabetes Screenin g [facility] Start: 08-08-2026 Colonoscopy COLONOSCOPY [facility] Start: 08-08-2026 COLORECTAL CANCER SCREENING COLORECTAL CANCER SCREENING [facility] Start: 08-08-2026 Screening for malign ant neoplasm of colon [facility] Start: 01-29-2026 DIABETES SCREEN DIABETES SCREEN [facility] Start: 01-29-2026 [facility] Start: 11-02-2025 DIABETES SCREEN DIABETES SCREEN [facility] Start: 08-15-2025 Covid-19 Vaccine ( season) Covid-19 Vaccine ( season) [facility] Comment on above: Postponed from 02/09 (Declined at this time) Start: 08-15-2025 Hepatitis B surface antibody level LDL Cholesterol [facility] Start: 02-09-2025 Influenza vaccination Influenz a Vaccine (Season Ended) [facility] Start: 01-27-2025 End: 01-27-2025 Patient encounter procedure 01/27/2025 8:00 AM EDT Office Visit Podiatry [address] [place], [place] [id number] Rob Rai [address] [place] [address] Hammer toes of both feet [M20.41, M20.42] Podiatry Comment on above: Hammer toes of both feet [M20.41, M20.42] Start: 12-22-2024 End: 12-22-2024 Patient encounter procedure 12/22/2024 8:00 AM EDT Office Visit Pulmonary Medicine [address] [place] [address] Val Hassan MD [address] [address] Pulmonary nodule [R91.1] Pulmonary Medicine Comment on above: Pulmonary nodule [R9 1.1] Start: 12-15-2024 End: 12-15-2024 Patient encounter procedure 12/15/2024 10:00 AM EDT Office Visit [facility] [place] [address] [facility] [place] [address] Lisa Peter MD [address] [facility] [place], [place] [id number] medicare wellness [facility] [place] Comment on above: medicare wellness Start: 12-08-2024 DIABETES SCREEN DIABETES SCREEN [facility] Start: 12-08-2024 Influenza vaccination Influenza Vacc ine (#1) [facility] Comment on above: Postponed from 02/09 (Declined at this time) Start: 11-22-2024 End: 02-21-2025 Thyrotropin [Units/volume] in Serum or Plasma THYROID STIMULATING HORMONE Lab Routine Acquired hypothyroidism Expected: 11/22/2024 (Approximate), Expires: 02/21/2025 [facility] Work Phone: Comment on above: Expected: 11/22/2024 (Approximate), Expires: 02/21/2025 Start: 11-17-2024 End: 11-17-2024 Patient encounter procedure 11/17/2024 9:00 AM EDT Appointment Cat Scan [address] [place] [address] Pulmonary nodule [R91.1] Cat Scan Comment on above: Pulmonary nodule [R9 1.1] Start: 11-14-2024 End: 11-14-2024 Patient encounter procedure 11/14/2024 10:00 AM EDT Office Visit Internal Medicine [place] [address] [facility] [place], [place] [phone] Lisa Peter MD [address] [facility] [place], [place] [id number] diarrhea after she takes pills [facility] [place] Comment on above: diarrhea after she t akes pills Start: 10-24-2024 End: 10-24-2024 Patient encounter procedure 10/24/2024 9:30 AM EDT Office Visit Podiatry [address] [place], [place] [id number] Rob Rai [address] [place], [place] [address] Hammer toes of both feet [M20.41, M20.42] Podiatry Comment on above: Hammer toes of both feet [M20.41, M20.42] Start: 08-15-2024 End: 11-14-2024 Lipid 1996 panel - Serum or Plasma [facility] Comment on above: Expected: 08/15/2024 , Expires: 11/14/2024 Start: 08-15-2024 End: 11-14-2024 Thyrotropin [Units/volume] in Serum or Plasma [facility] Work Phone: Comment on above: Expected: 08/15/2024 , Expires: 11/14/2024 Start: 07-26-2024 DIABETES SCREEN DIABETES SCREEN [facility] Start: 07-24-2024 Covid-19 Vaccine ( season) Covid-19 Vaccine (2022- season) [facility] Comment on above: Postponed from 02/09 (Current Illness) Start: 07-24-2024 RSV Vaccine (1 - 1-d ose 60+ series) RSV Vaccine (1 - 1-dose 60+ series) [facility] Comment on above: Postponed from 06/22 (Insurance Coverage) Start: 07-24-2024 RSV Vaccine (1 - 1-d ose 75+ series) RSV Vaccine (1 - 1-dose 75+ series) [facility] Comment on above: Postponed from 06/22 (Insurance Coverage) Start: 06-16-2024 End: 06-16-2024 Patient encounter procedure 06/16/2024 9:20 AM EST Office Visit [facility] [place] [address] [place] [address] Lisa Peter MD [address] [facility] [place] [address] 3 month follow up [facility] [place] Comment on above: 3 month follow up Start: 06-11-2024 Advance Directive Discussion Advance Directive Discussion [facility] Start: 03-11-2024 End: 03-11-2024 Patient encounter procedure 03/11/2024 9:00 AM EDT Office Visit Family Medicine [place] [address] [place] [address] Eric Lockett PA-C [address] [place] [address] follow up, Fatigue [facility] [place] Comment on above: follow up, Fatigue Start: 03-04-2024 End: 06-03-2024 CREATININE BLD [facility] Comment on above: Expected: 03/04/2024 , Expires: 06/03/2024 Start: 02-28-2024 End: 02-28-2024 Patient encounter procedure [facility] [place] Comment on above: 6 month f/u Annual Wellness - 6 month f/u Start: 02-10-2024 Covid-19 Vaccine ( season) Covid-19 Vaccine ( season) [facility] Start: 02-10-2024 Covid-19 Vaccine ( season) Covid-19 Vaccine ( season) [facility] Start: 02-10-2024 [facility] Start: 01-30-2024 Hepatitis B surface antibody level LDL CHOLESTEROL [facility] Start: 12-09-2023 Influenza vaccination Influenza Vacc ine (#1) [facility] Comment on above: Postponed from 02/09 (Declined at this time) Start: 07-24-2023 End: 10-23-2023 Bacteria identified in Urine by Culture [facility] Work Phone: Comment on above: Expected: 07/24/2023 , Expires: 10/23/2023 Start: 07-24-2023 End: 10-23-2023 Urinalysis complete panel - Urine [facility] Work Phone: Comment on above: Expected: 07/24/2023 , Expires: 10/23/2023 Start: 07-21-2023 End: 09-20-2023 Lipid 1996 panel - Serum or Plasma LIPID PANEL BASIC Lab Routine Hyperlipidemia, unspecified hyperlipidemia type Expected: 07/21/2023, Expires: 09/20/2023 [facility] Work Phone: Comment on above: Expected: 07/21/2023 , Expires: 09/20/2023 Start: 07-21-2023 End: 02-17-2024 US ABD RIGHT UPPER QUADRANT US ABD RIGHT UPPER QUADRANT Radiology Routine Liver cyst Expected: 07/21/2023, Expires: 02/17/2024 [facility] Work Phone: Comment on above: Expected: 07/21/2023 , Expires: 02/17/2024 Start: 07-13-2023 [facility] Start: 06-11-2023 Advance Directive Discussion Advance Directive Discussion [facility] Start: 06-11-2023 Behavioral Health Screening Behavioral Health Screening [facility] Start: 06-11-2023 Depression Assessment Depression Ass essment [facility] Start: 02-09-2023 Covid-19 Vaccine ( season) Covid-19 Vaccine ( season) [facility] Start: 02-09-2023 Influenza vaccination [facility] Start: 01-18-2023 End: 03-20-2023 CBC W Auto Differential panel - Blood CBC + DIFF Lab Routine Colitis Rectal bleeding Expected: 01/18/2023, Expires: 03/20/2023 [facility] Work Phone: Comment on above: Expected: 01/18/2023 , Expires: 03/20/2023 Start: 01-18-2023 End: 03-20-2023 Comprehensive metabolic 2000 panel - Serum or Plasma COMP METABOLIC PANEL Lab Routine Hyperlipidemia, unspecified hyperlipidemia type Expected: 01/18/2023, Expires: 03/20/2023 [facility] Work Phone: Comment on above: Expected: 01/18/2023 , Expires: 03/20/2023 Start: 12-08-2022 COVID-19 VACCINE (2 - Booster for Marybel series) COVID-19 VACCINE (2 - Booster for Marybel series) [facility] Comment on above: Postponed from 02/15 (Declined at this time) Start: 12-08-2022 Hepatitis B surface antibody level LDL CHOLESTEROL [facility] Start: 10-13-2022 End: 12-13-2022 Basic metabolic 2000 panel - Serum or Plasma [facility] Work Phone: Comment on above: Expected: 10/13/2022 , Expires: 12/13/2022 Start: 10-13-2022 End: 12-13-2022 Ferritin [Mass/volume] in Serum or Plasma [facility] Work Phone: Comment on above: Expected: 10/13/2022 , Expires: 12/13/2022 Start: 10-13-2022 End: 12-13-2022 Iron and Iron binding capacity panel - Serum or Plasma [facility] Work Phone: Comment on above: Expected: 10/13/2022 , Expires: 12/13/2022 Start: 10-13-2022 End: 12-13-2022 Magnesium [Mass/volume] in Serum or Plasma [facility] Work Phone: Comment on above: Expected: 10/13/2022 , Expires: 12/13/2022 Start: 10-10-2022 End: 12-10-2022 CBC panel - Blood by Automated count CBC Lab Routine Hypertensive kidney disease with chronic kidney disease stage III (HCC) Expected: 10/10/2022, Expires: 12/10/2022 [facility] Work Phone: Comment on above: Expected: 10/10/2022 , Expires: 12/10/2022 Start: 10-10-2022 End: 12-10-2022 Thyrotropin [Units/volume] in Serum or Plasma TSH BLD Lab Routine Hypothyroidism Expected: 10/10/2022, Expires: 12/10/2022 [facility] Work Phone: Comment on above: Expected: 10/10/2022 , Expires: 12/10/2022 Start: 06-11-2022 ADVANCE DIRECTIVE DISCUSSION ADVANCE DIRECTIVE DISCUSSION [facility] Start: 06-11-2022 DEPRESSION ASSESSMENT DEPRESSION ASS ESSMENT [facility] Start: 03-29-2022 FECAL OCCULT BLOOD FECAL OCCULT BLOO D [facility] Start: 03-29-2022 Screening for malign ant neoplasm of colon Fecal Occult Blood [facility] Start: 02-09-2022 Influenza vaccination C [facility] Start: 12-08-2021 End: 02-07-2022 Comprehensive metabolic 2000 panel - Serum or Plasma [facility] Work Phone: Comment on above: Expected: 12/08/2021 , Expires: 02/07/2022 Start: 12-08-2021 End: 02-07-2022 Lipid 1996 panel - Serum or Plasma [facility] Work Phone: Comment on above: Expected: 12/08/2021 , Expires: 02/07/2022 Start: 12-08-2021 End: 02-07-2022 Thyrotropin [Units/volume] in Serum or Plasma [facility] Work Phone: Comment on above: Expected: 12/08/2021 , Expires: 02/07/2022 Start: 06-11-2021 ADVANCE DIRECTIVE DISCUSSION ADVANCE DIRECTIVE DISCUSSION [facility] Start: 06-11-2021 [facility] Start: 02-15-2021 COVID-19 VACCINE (2 - Booster for Marybel series) COVID-19 VACCINE (2 - Booster for Mayrbel series) [facility] Start: 02-09-2021 Hepatitis B surface antibody level LDL CHOLESTEROL [facility] Start: 2014 RSV Vaccine (1 - 1-d ose 75+ series) RSV Vaccine (1 - 1-dose 75+ series) [facility] Start: 04-26-2013 PNEUMOCOCCAL: 65+ (1 - PCV) PNEUMOCOCCAL: 65+ (1 - PCV) [facility] Start: 1999 RSV Vaccine (1 - 1-d ose 60+ series) RSV Vaccine (1 - 1-dose 60+ series) [facility] Start: 1984 COLOGUARD (FIT-DNA) COLOGUARD (FIT-D NA) [facility] Start: [address] COLONOGRAPHY [facility] Start: 1984 Screening for malign ant neoplasm of colon [facility] Start: 1984 SIGMOIDOSCOPY SIGMOIDOSCOPY [facility] Start: 1957 Depression Screening Depression Scre ening [facility] End: 03-29-2025 BD DXA TRABECULAR BONE SCORE (TBS) BD DXA TRABECULAR BONE SCORE (TBS) Radiology Routine Screening for osteoporosis 1 Occurrences starting 02/28/2024 until 03/29/2025 [facility] Comment on above: 1 Occurrences starti ng 02/28/2024 until 03/29/2025 COVID & INFLUENZA A/ B & RSV PCR, ROUTINE COVID & INFLUENZA A/B & RSV PCR, ROUTINE Microbiology Routine Acute cough Body aches Ordered: 08/12/2024 [facility] Work Phone: Comment on above: Ordered: 08/12/2024 End: 04-03-2025 CT Abdomen and Pelvis W contrast IV CT ABD/PEL W IVCON Radiology Routine Left lower quadrant abdominal pain 1 Occurrences starting 03/04/2024 until 04/03/2025 [facility] Work Phone: Comment on above: 1 Occurrences starti ng 03/04/2024 until 04/03/2025 End: 12-14-2025 CT Chest WO contrast CT CHEST WO IVCON Radiology Routine Pulmonary nodule 1 Occurrences starting 11/14/2024 until 12/14/2025 [facility] Work Phone: Comment on above: 1 Occurrences starti ng 11/14/2024 until 12/14/2025 CT Chest WO contrast CT CHEST WO IVCON Radiology Routine Pulmonary nodule 11/17/2024 9:25 AM EDT [facility] Work Phone: End: 02-17-2024 Ct thorax w/o contrast material CT CHEST WO IVCON Radiology Routine Lung nodules 1 Occurrences starting 01/18/2023 until 02/17/2024 [facility] Work Phone: Comment on above: 1 Occurrences starti ng 01/18/2023 until 02/17/2024 End: 03-29-2025 DXA Skeletal system.axial Views for bone density DXA-AXIAL SKELETON Radiology Routine Screening for osteoporosis 1 Occurrences starting 02/28/2024 until 03/29/2025 [facility] Work Phone: Comment on above: 1 Occurrences starti ng 02/28/2024 until 03/29/2025 ECG COMPLETE ECG COMPLETE ECG Routine Body aches Nausea Ordered: 08/12/2024 [facility] Comment on above: Ordered: 08/12/2024 End: 03-17-2023 EMG(NEURO/NI) EMG(NEURO/NI) EMG Routine Numbness and tingling of right arm 1 Occurrences starting 03/17/2022 until 03/17/2023 [facility] Work Phone: Comment on above: 1 Occurrences starti ng 03/17/2022 until 03/17/2023 End: 09-25-2024 MR Shoulder - right WO contrast MRI SHOULDER WO IVCON RIGHT Radiology Routine Acute pain of right shoulder Injury of right shoulder, subsequent encounter 1 Occurrences starting 08/27/2023 until 09/25/2024 [facility] Work Phone: Comment on above: 1 Occurrences starti ng 08/27/2023 until 09/25/[address] [facility] Work Phone: Patient referral [facility] Work Phone: End: 10-14-2023 PVR ANK PRESS [facility] Vascular Lab Routine Muscle cramps PVD (peripheral vascular disease) (HCC) 1 Occurrences starting 10/13/2022 until 10/14/2023 [facility] Work Phone: Comment on above: 1 Occurrences starti ng 10/13/2022 until 10/14/2023 End: 04-16-2023 Radex spine cervical 2 or 3 views XR CERV GENERAL 2V AP/LAT Radiology Routine Numbness and tingling of right arm Acute pain of right shoulder 1 Occurrences starting 03/17/2022 until 04/16/2023 [facility] Work Phone: Comment on above: 1 Occurrences starti ng 03/17/2022 until 04/16/2023 Radex spine cervical 2 or 3 views XR CERV GENERAL 2V AP/LAT Radiology Routine Numbness and tingling of right arm Acute pain of right shoulder 03/17/2022 12:36 PM EDT [facility] Work Phone: UA DIP, URINE (POC) UA DIP, URIN E (POC) Lab Routine Difficulty urinating Urinary frequency Ordered: 07/24/2023 [facility] Work Phone: Comment on above: Ordered: 07/24/2023 US Carotid arteries [facility] End: 02-17-2024 US KIDNEY/BLADDER US KIDNEY/BLADDER Radiology Routine Kidney cyst, acquired 1 Occurrences starting 01/18/2023 until 02/17/2024 [facility] Work Phone: Comment on above: 1 Occurrences starti ng 01/18/2023 until 02/17/2024 XR Foot - bilateral AP and Lateral and oblique XR FOOT GENERAL 3V AP/LAT/OBL BILATERAL Radiology Routine Bilateral foot pain 10/24/2024 8:41 AM EDT [facility] Work Phone: End: 04-16-2023 XR SHOULDER [id number] AP/TRUE AP RIGHT XR SHOULDER [id number] AP/TRUE AP RIGHT Radiology Routine Numbness and tingling of right arm Acute pain of right shoulder 1 Occurrences starting 03/17/2022 until 04/16/2023 [facility] Work Phone: Comment on above: 1 Occurrences starti ng 03/17/2022 until 04/16/2023 XR SHOULDER LIMITED2 V AP/TRUE AP RIGHT XR SHOULDER [id number] AP/TRUE AP RIGHT Radiology Routine Numbness and tingling of right arm Acute pain of right shoulder 03/17/2022 12:36 PM EDT [facility] Work Phone: XR Tibia and Fibula - left AP and Lateral XR TIBIA FIBULA 2V AP/LAT LEFT Radiology Routine Left leg pain Leg cramp 06/24/2024 12:18 PM EST [facility] Work Phone: [facility] Immunizations Immunization Date Immunization Notes Care Provider Fa viviana 12-21-2020 COVID-19 vaccine (MARYBEL) Lisa Peter MD Work Phone: [facility] 06-24-2019 zoster vaccine recombinant Lisa Peter MD Work Phone: [facility] 10-10-2018 zoster vaccine recombinant Lisa Peter MD Work Phone: [facility] Work Phone: 06-26-2018 influenza virus vacc ine, unspecified formulation Lisa Peter MD Work Phone: [facility] 04-23-2018 zoster vaccine recombinant Lisa Peter MD Work Phone: [facility] 08-24-2017 tetanus and diphther ia toxoids, adsorbed, preservative free, for adult use (5 Lf of tetanus toxoid and 2 Lf of diphtheria toxoid) Lisa Peter MD Work Phone: [facility] 03-02-2015 pneumococcal conjuga te vaccine, 13 valent Lisa Peter MD Work Phone: [facility] 06-24-2013 influenza virus vacc ine, unspecified formulation Nisreen Bermudez PA-C Work Phone: [facility] 06-21-2012 influenza virus vacc ine, unspecified formulation Lisa Peter MD Work Phone: [facility] Work Phone: 04-26-2012 pneumococcal polysaccharide vaccine, 23 valent Lisa Peter MD Work Phone: [facility] 04-05-2008 influenza virus vacc ine, unspecified formulation Lisa Peter MD Work Phone: [facility] Work Phone: 04-05-2008 pneumococcal conjuga te vaccine, 7 valent Lisa Peter MD Work Phone: [facility] Work Phone: 03-28-2007 rabies vaccine, for intramuscular injection Nisreen Denbow PA-C Work Phone: [facility] 03-14-2007 lithuanian encephaliti s vaccine for intramuscular administration Lisa Peter MD Work Phone: [facility] Work Phone: 03-14-2007 rabies vaccine, for intramuscular injection Nisreen Bermudez PA-C Work Phone: [facility] 03-14-2007 rabies vaccine, unspecified formulation Lisa Peter MD Work Phone: [facility] Work Phone: 03-07-2007 lithuanian encephaliti s vaccine for intramuscular administration Lisa Peter MD Work Phone: [facility] Work Phone: 03-07-2007 rabies vaccine, for intramuscular injection Nisreen Bermudez PA-C Work Phone: [facility] 03-07-2007 rabies vaccine, unspecified formulation Lisa Peter MD Work Phone: [facility] Work Phone: 02-07-2007 hepatitis A vaccine, unspecified formulation Lisa Peter MD Work Phone: [facility] Work Phone: 01-18-2007 diphtheria and tetan us toxoids, adsorbed for pediatric use Lisa Peter MD Work Phone: [facility] Work Phone: 01-18-2007 poliovirus vaccine, inactivated Lisa Peter MD Work Phone: [facility] Work Phone: 01-18-2007 tetanus and diphther ia toxoids, adsorbed, preservative free, for adult use (2 Lf of tetanus toxoid and 2 Lf of diphtheria toxoid) Nisreen Bermudez PA-C Work Phone: [facility] 01-18-2007 typhoid vaccine, unspecified formulation Lisa Peter MD Work Phone: [facility] Work Phone: 04-22-1995 hepatitis B vaccine, adult dosage Lisa Peter MD Work Phone: [facility] Work Phone: 11-01-1994 hepatitis B vaccine, adult dosage Lisa Peter MD Work Phone: [facility] Work Phone: 09-25-1994 hepatitis B vaccine, adult dosage Lisa Peter MD Work Phone: [facility] Work Phone: Payers Date Payer Category Payer [employer] others) [id number] 2023 Self-pay [id number] 2023 [employer] others) [id number] 2023 [employer] others) [id number] 2022 Medicare (Managed Care) [employer] PPO [id number] 2022 Medicare [id number] 2022 Government (not [facility] care or Medicaid) FOR LIFE [id number] 2022 [employer] ( and others) [id number] 2004 Medicare MEDICARE MEDICAR E A AND B [id number] 2004-Present [phone] [place] [address] Medicare [id number] 2004 Medicare [id number] 2004 Medicare [id number] 2004 Unknown FOR LIFE [id number] 2004-Present [phone] [address] [place] [address] Indemnity [id number] 2004 Unknown [id number] Medicare [employer] MEDICARE PPO [id number] Unknown [id number] Unknown [id number] Unknown [id number] Unknown [id number] Unknown [id number] Unknown [id number] Unknown [id number] Social History Date Type Detail Facility Start: 06-21-2011 Tobacco smoking status NHIS Never smoked tobacco [facility] Start: 08-29-2021 End: 11-14-2024 Alcohol intake Current drinker of alcohol (finding) [facility] Start: 06-14-2021 History SDOH Alcohol Frequency 2 [facility] Start: 06-14-2021 History SDOH Alcohol Std Drinks 1 [facility] Start: 09-07-2009 History SDOH Alcohol Comment rare glass of wine [facility] Start: 06-14-2021 History SDOH Social Connections Phone 4 [facility] Start: 06-14-2021 History SDOH Social Connections Get Together 3 [facility] Start: 06-14-2021 History SDOH Financial 5 [facility] Start: 02-10-2020 Education 17 [facility] Start: 1940 Sex Assigned At Female [facility] Start: 11-29-2021 End: 07-13-2023 Tobacco smoking status NHIS Unknown if ever smoked [facility] Start: 05-03-2021 None [facility] Start: 05-03-2021 Homeless [facility] Start: 05-03-2021 Non-smoker [facility] Start: 06-20-2021 End: 03-31-2022 Exposure to SARS-CoV-2 (event) Not sure [facility] Start: 06-21-2011 Tobacco use and exposure Smokeless tobacco non-user [facility] Start: 07-25-2022 End: 10-13-2022 History of Social function [facility] Work Phone: Start: 07-25-2022 End: 10-13-2022 Tobacco use panel [facility] Work Phone: Adult Depression Screening Assessment 2 [facility] Work Phone: Start: 02-28-2020 Gender identity Identifies as female gender (finding) [facility] Start: 02-28-2020 Sexual orientation Heterosexual (finding) [facility] Do you belong to any clubs or organizations such as worship groups, unions, fraAnexon or athletic groups, or school groups? Yes [facility] Are you now , , , , never or living with a partner? [facility] How often to you hav e a drink containing alcohol? Monthly or less [facility] How often do you hav e 6 or more drinks on 1 occasion? Never [facility] Do you feel stress - tense, restless, nervous, or anxious, or unable to sleep at night because your mind is troubled all the time - these days [OSQ] Not at all [facility] The food that (I/we) bought just didn't last, and (I/we) didn't have money to get more. Never true [facility] In the past 12 month s, was there a time when you were not able to pay the mortgage or rent on time? No [facility] Are you now , , , , never or living with a partner? [facility] How many standard dr inks containing alcohol do you have on a typical day? 1 or 2 [facility] Do you feel stress - tense, restless, nervous, or anxious, or unable to sleep at night because your mind is troubled all the time - these days [OSQ] Only a little [facility] Functional Status Date Assessment Result Facility 12-28-2014 Are you deaf, or do you have serious difficulty hearing No 12/28/2014 12:02 PM Carolin Glass C[facility] No [facility] 12-28-2014 Are you blind, or do you have serious difficulty seeing, even when wearing glasses No 12/28/2014 12:02 PM Carolin Glass [facility] No [facility] 12-28-2014 Do you have serious difficulty walking or climbing stairs No 12/28/2014 12:02 PM Carolin Glass [facility] No [facility] 12-28-2014 Do you have difficul ty dressing or bathing No 12/28/2014 12:02 PM EDT Carolin Ahuja [facility] No [facility] 12-28-2014 Because of a physica l, mental, or emotional condition, do you have difficulty doing errands alone such as visiting a physician's office or shopping No 12/28/2014 12:02 PM EDT Carolin Ahuja [facility] No [facility] Mental Status Date Assessment Result Facility 12-28-2014 Because of a physica l, mental, or emotional condition, do you have serious difficulty concentrating, remembering, or making decisions No 12/28/2014 12:02 PM EDT ElanaolgaCarolin osborne C[facility] No [facility] Clinical Notes 05-22-2019 to 11-17-2024 Whitney Patel RT(Chelsie) - 11/17/2024 9:00 AM EDTPatient Lisa Camilo MD - 11/14/2024 12:54 PM EDTTelephone Encounter - Abby Tsai RN - 11/13/2024 11:21 AM EDT Note Date & Type Note Facility 11-17-2024 History of Present illness Narrative Radiology Service Progress Note PATIENT NAME: Lisette Enamorado DATE OF SERVICE: November 17, 2024 TIME: 3:08 PM PATIENT IDENTITY VERIFICATION COMPLETED USING TWO (2) IDENTIFIERS: Name and Date of confirmed by patient verbally. FALL SCREENING: Has the patient had 2 falls in the last year or 1 fall with injury or currently using an Ambulatory Assistive Device (Walker, Cane, Wheelchair, Crutches, etc.)? No PATIENT GENDER DATA: Assigned male at PATIENT RELEVANT IMPLANT DATA REVIEWED: Yes PATIENT PRESENTS WITH AN IMPLANTABLE OR ATTACHED DCS ENGINEER: No RADIOLOGY DEPARTMENT: CT; Exam(s) Completed: Chest PERIPHERAL IV DATA: Not applicable SIGNED BY: RT Summer(Chelsie) November 17, 2024 3:08 PM documented in this encounter [facility] 11-17-2024 Note HNO ID: [id number] Author: WHITNEY PATEL RT(Chelsie) Service: ? Author Type: Harvesting Supervisor Type: Progress Notes Filed: 11/17/2024 15:08 Note Text: Radiology Service Progress Note PATIENT NAME: Lisette Enamorado DATE OF SERVICE: November 17, 2024 TIME: 3:08 PM PATIENT IDENTITY VERIFICATION COMPLETED USING TWO (2) IDENTIFIERS: Name and Date of confirmed by patient verbally. FALL SCREENING: Has the patient had 2 falls in the last year or 1 fall with injury or currently using an Ambulatory Assistive Device (Walker, Cane, Wheelchair, Crutches, etc.)? No PATIENT GENDER DATA: Assigned male at PATIENT RELEVANT IMPLANT DATA REVIEWED: Yes PATIENT PRESENTS WITH AN IMPLANTABLE OR ATTACHED DCS ENGINEER: No RADIOLOGY DEPARTMENT: CT; Exam(s) Completed: Chest PERIPHERAL IV DATA: Not applicable SIGNED BY: RT Summer(R) November 17, 2024 3:08 PM [facility] 11-14-2024 Instructions Lisa Peter MD - 11/14/2024 1:21 PM EDT We discussed your medications: - You are currently taking the following medications: aspirin, amlodipine, vitamin D, colestipol, metoprolol, levothyroxine, and Trospium. Please continue taking these as prescribed. - You are not taking Brilinta due to bleeding issues. This has been discontinued. - Zetia has been sent to your preferred pharmacy ([facility]). Please pick it up and start taking it as prescribed. - You are not currently taking Nexium (esomeprazole). This may help with your cough if it is related to reflux. If you would like to restart it, please let me know. - Consider taking Tums and Imodium with you during your upcoming travel for potential gas or diarrhea issues. We discussed your cough: - Your lungs sound clear, and your throat does not show signs of reflux. The cough may be related to allergies or reflux, but no definitive cause was identified during this visit. - You are coughing up mucus, which worsens at night. If the cough persists or worsens, follow up with a lung specialist. - A CT chest scan is recommended to evaluate a pulmonary nodule that was previously noted. This will help rule out any underlying issues contributing to your symptoms. We discussed your diarrhea: - Diarrhea may be related to anxiety, recent medication changes, or other factors. You reported improvement after taking Imodium. - Continue taking colestipol as it may help manage diarrhea. Keep Imodium on hand for travel in case symptoms recur. Follow-up instructions: - Schedule and complete a CT chest scan to evaluate the pulmonary nodule. - Follow up with a lung specialist (records clerk) for further evaluation of your cough and pulmonary nodule. - supervisor beater room Zetia from [facility] and begin taking it as prescribed. - Monitor your symptoms, including cough and diarrhea, and let us know if they worsen or do not improve. Safe travels, and please reach out if you have any concerns before your trip. documented in this encounter [facility] 11-14-2024 Note HNO ID: [id number] Author: LISA PETER MD Service: ? Author Type: Physician Type: Progress Notes Filed: 11/14/2024 16:22 Note Text: Reason for Visit Cough and other concerns HPI Paola Enamorado is a 84-year-old female with a history of hypercholesterolemia, hypothyroidism, and hypertension, presenting for evaluation of a cough and recent episodes of diarrhea. Paola reports a worsening cough over the past 4 days, more pronounced at night than during the day. She describes the cough as dry but notes that she occasionally expectorates mucus. She denies frequent throat clearing, rhinorrhea, or facial pain, but mentions occasional sneezing, which she attributes to potential allergies. She also reports a little tickle on the left side of her throat. She denies a history of asthma and is not currently taking Nexium (esomeprazole), which she had previously been prescribed. Additionally, Paola reports episodes of diarrhea that began on Sunday and continued through . She notes that the diarrhea started after taking her usual medications following breakfast. She took Imodium yesterday, which she believes may have stopped the diarrhea, as she has not had any bowel movements today but feels a shade of discomfort. She is concerned that her medications may be causing the diarrhea and is unsure if she should continue taking them. Paola is currently taking a variety of medications, including vitamin D, colestipol, Norvasc, Zetia, levothyroxine, metoprolol, and aspirin. She has stopped taking Brilinta due to bleeding issues and is unsure if she should continue taking Zetia. She is also taking calcium and Prevagen but plans to discontinue these during an upcoming trip. She is preparing for a month-long trip and is concerned about managing her medications and potential health issues while traveling. Social History Tobacco Use Smoking status: Never Smokeless tobacco: Never Vaping Use Vaping status: Never Used Substance Use Topics Alcohol use: Yes Comment: rare glass of wine Drug use: No Past medical history, appointments, medications, allergies reviewed. Pertinent Lab/Diagnostic Studies are reviewed and discussed today Current Outpatient Medications: levothyroxine (SYNTHROID) 88 mcg tablet Cholecalciferol, Vitamin D3, (VITAMIN D-3) 50 mcg (2,000 unit) cap amLODIPine (NORVASC) 5 mg tablet metoprolol tartrate, short acting, (LOPRESSOR) 50 mg tablet Aspirin 81 mg Tab trospium (SANCTURA) 20 mg tablet ezetimibe (ZETIA) 10 mg tablet colestipol (COLESTID) 1 gram tablet Health Maintenance Depression Screening RSV Vaccine(1 - 1-dose 75+ series) Advance Directive Discussion@ Review Of Systems Ears/Nose/Mouth/Throat: (+) hearing difficulty, (+) sneezing, (+) throat tickle, (-) runny nose, (-) facial pain Respiratory: (+) productive cough Gastrointestinal: (+) abdominal discomfort, (-) diarrhea Skin: (+) cutaneous bleeding Psychiatric: (+) anxiety Physical Exam BP 138/66 Pulse 73 Resp 16 Wt 68.4 kg (150 lb 12.8 oz) SpO2 99% BMI 27.58 kg/m? GENERAL: NAD, alert and oriented. SKIN: Unremarkable, no rash or skin lesions. HEAD: Normocephalic. EYES: PERRLA, EOMI, conjunctiva clear. EARS: External ears normal, canals clear, TM's normal. NOSE/SINUSES: Nares normal. Septum midline. OROPHARYNX: Lips, mucosa, and tongue normal, good dentition. No oral lesions noted. NECK: Supple, no lymphadenopathy, normal thyroid, no carotid bruits. LUNGS: Clear to auscultation bilaterally, no wheezes/rhonchi/rales. HEART: Regular rate and rhythm, no murmurs. No ectopy. EXTREMITIES: Normal, no deformities, no skin discoloration, no edema. NEURO: Awake, alert and oriented x3, cranial nerves II-XII grossly intact, normal gait, no involuntary motions. Assessment and Plan 1. 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 Continue trospium as prescribed. 2. Essential hypertension (I10) Controlled with amlodipine and metoprolol. Continue current antihypertensive regimen. 3. Pulmonary nodule (R91.1) Incidental finding; requires further evaluation. - Ordered CT chest for further evaluation of the pulmonary nodule. - Referral to pulmonology for further management. 4. Chronic cough (R05.3) Intermittent, productive of mucus, worse at night. Lungs clear on auscultation; no signs of acute infection or asthma. Possible etiologies include allergies or GERD. - Resume esomeprazole to address potential GERD-related cough. - Referral to pulmonology for further evaluation. 5. Diarrhea, unspecified type (R19.7) Recent onset, possibly related to medication or anxiety. Currently managed with colestipol and Imodium. - Continue colestipol and Imodium as needed. - Monitor for resolution of symptoms. 6. 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 Continue levothyroxine as prescribed. Voice recognition (more content not included)... [facility] 11-14-2024 History of Present illness Narrative Reason for Visit Cough and other concerns HPI Paola Enamorado is a 84-year-old female with a history of hypercholesterolemia, hypothyroidism, and hypertension, presenting for evaluation of a cough and recent episodes of diarrhea. Paola reports a worsening cough over the past 4 days, more pronounced at night than during the day. She describes the cough as dry but notes that she occasionally expectorates mucus. She denies frequent throat clearing, rhinorrhea, or facial pain, but mentions occasional sneezing, which she attributes to potential allergies. She also reports a little tickle on the left side of her throat. She denies a history of asthma and is not currently taking Nexium (esomeprazole), which she had previously been prescribed. Additionally, Paola reports episodes of diarrhea that began on Sunday and continued through . She notes that the diarrhea started after taking her usual medications following breakfast. She took Imodium yesterday, which she believes may have stopped the diarrhea, as she has not had any bowel movements today but feels a shade of discomfort. She is concerned that her medications may be causing the diarrhea and is unsure if she should continue taking them. Paola is currently taking a variety of medications, including vitamin D, colestipol, Norvasc, Zetia, levothyroxine, metoprolol, and aspirin. She has stopped taking Brilinta due to bleeding issues and is unsure if she should continue taking Zetia. She is also taking calcium and Prevagen but plans to discontinue these during an upcoming trip. She is preparing for a month-long trip and is concerned about managing her medications and potential health issues while traveling. Social History Tobacco Use Smoking status: Never Smokeless tobacco: Never Vaping Use Vaping status: Never Used Substance Use Topics Alcohol use: Yes Comment: rare glass of wine Drug use: No Past medical history, appointments, medications, allergies reviewed. Pertinent Lab/Diagnostic Studies are reviewed and discussed today Current Outpatient Medications: levothyroxine (SYNTHROID) 88 mcg tablet Cholecalciferol, Vitamin D3, (VITAMIN D-3) 50 mcg (2,000 unit) cap amLODIPine (NORVASC) 5 mg tablet metoprolol tartrate, short acting, (LOPRESSOR) 50 mg tablet Aspirin 81 mg Tab trospium (SANCTURA) 20 mg tablet ezetimibe (ZETIA) 10 mg tablet colestipol (COLESTID) 1 gram tablet Health Maintenance Depression Screening RSV Vaccine(1 - 1-dose 75+ series) Advance Directive Discussion@ Review Of Systems Ears/Nose/Mouth/Throat: (+) hearing difficulty, (+) sneezing, (+) throat tickle, (-) runny nose, (-) facial pain Respiratory: (+) productive cough Gastrointestinal: (+) abdominal discomfort, (-) diarrhea Skin: (+) cutaneous bleeding Psychiatric: (+) anxiety Physical Exam BP 138/66 Pulse 73 Resp 16 Wt 68.4 kg (150 lb 12.8 oz) SpO2 99% BMI 27.58 kg/m GENERAL: NAD, alert and oriented. SKIN: Unremarkable, no rash or skin lesions. HEAD: Normocephalic. EYES: PERRLA, EOMI, conjunctiva clear. EARS: External ears normal, canals clear, TM's normal. NOSE/SINUSES: Nares normal. Septum midline. OROPHARYNX: Lips, mucosa, and tongue normal, good dentition. No oral lesions noted. NECK: Supple, no lymphadenopathy, normal thyroid, no carotid bruits. LUNGS: Clear to auscultation bilaterally, no wheezes/rhonchi/rales. HEART: Regular rate and rhythm, no murmurs. No ectopy. EXTREMITIES: Normal, no deformities, no skin discoloration, no edema. NEURO: Awake, alert and oriented x3, cranial nerves II-XII grossly intact, normal gait, no involuntary motions. Assessment and Plan 1. 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 Continue trospium as prescribed. 2. Essential hypertension (I10) Controlled with amlodipine and metoprolol. Continue current antihypertensive regimen. 3. Pulmonary nodule (R91.1) Incidental finding; requires further evaluation. - Ordered CT chest for further evaluation of the pulmonary nodule. - Referral to pulmonology for further management. 4. Chronic cough (R05.3) Intermittent, productive of mucus, worse at night. Lungs clear on auscultation; no signs of acute infection or asthma. Possible etiologies include allergies or GERD. - Resume esomeprazole to address potential GERD-related cough. - Referral to pulmonology for further evaluation. 5. Diarrhea, unspecified type (R19.7) Recent onset, possibly related to medication or anxiety. Currently managed with colestipol and Imodium. - Continue colestipol and Imodium as needed. - Monitor for resolution of symptoms. 6. 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 Continue levothyroxine as prescribed. Voice recognition software was used to compose this office note. Please excuse any unintended typographical errors. Recording using ambient [employer] [place] software for draft documentation of the visit was discussed with the patient/authorized outside industrial sales representative; all questions welcomed and answered. Patient/authorized outside industrial sales representative agreed to proceed Spent more than 40 mins with the patient, direct interview as she has difficulty understanding and needed much reassurance and repetition Lisa Peter MD documented in this encounter [facility] 11-13-2024 Telephone encounter Note Patient calls and is upset because after she takes her morning pills she gets episode of diarrhea. Patient is unclear which pill she takes in the morning. Patient states that she thinks it is the pink pill that is causing the issue. Patient states that [place] is going [place] of country and she needs to get this issue solved. Asked patient which pills she takes in the morning. Patient states that Dr. Peter should know which pill. Advised patient that office knows which pills are ordered however we don't know when she takes each pill. Advised patient that she needs to come into office to discuss this. Appointment scheduled tomorrow morning with Dr. Peter. Patient states that she is going to bring pill container in that she sets up. Advised patient that she needs to know which pill is which so we know what she takes in the morning. Patient voiced understanding. Abby Tsai RN [facility] 11-13-2024 Miscellaneous Notes Patient calls and is upset because after she takes her morning pills she gets episode of diarrhea. Patient is unclear which pill she takes in the morning. Patient states that she thinks it is the pink pill that is causing the issue. Patient states that she is [place] and she needs to get this issue solved. Asked patient which pills she takes in the morning. Patient states that Dr. Peter should know which pill. Advised patient that office knows which pills are ordered however we don't know when she takes each pill. Advised patient that she needs to come into office to discuss this. Appointment scheduled tomorrow morning with Dr. Peter. Patient states that she is going to bring pill container in that she sets up. Advised patient that she needs to know which pill is which so we know what she takes in the morning. Patient voiced understanding. Abby Tsai RN documented in this encounter [facility] 10-28-2024 Note HNO ID: [id number] Author: ERIC LOCKETT PA-C Service: ? Author Type: Physician Sap Portal Architect Type: Progress Notes Filed: 10/28/2024 10:06 Note Text: Recording using [employer] software for draft documentation of the visit was discussed with the patient/authorized outside industrial sales representative; all questions welcomed and answered. Patient/authorized outside industrial sales representative agreed to proceed 10/28/2024 Medication Review: - Confusion regarding medication lists; discrepancies noted between different lists. - Uses a pill box but acknowledges not all medications are included. - Uncertain about the necessity of certain medications, including Nexium- Not taking, not having any acid refulx symptoms - Stopped taking Brilinta due to bleeding issues, reportedly advised by cardiology-Dr. Zarate - Reports dry mouth at night, questioning if calcium supplementation is the cause. - Recent episode of loose bowel movements, treated with Imodium. - Experiences leg cramps, previously used Flexeril but not currently taking it. - Concerns about managing medications during an upcoming month-long vacation. Hypothyroidism: - Currently taking Synthroid 75 mcg, with a recent increase to 88 mcg by DOUG Frey. - Has not started the new dose yet. Hyperlipidemia: - Taking Zetia and colestipol. - Out of Zetia and unsure about the necessity of continuing it. Prescribed by cardiology-Dr. Zarate HTN: - Taking metoprolol and Norvasc (amlodipine) for blood pressure management. Current Outpatient Medications on File Prior to Visit Medication Sig ticagrelor (BRILINTA) 90 mg tablet Take 90 mg by mouth once daily. Cholecalciferol, Vitamin D3, (VITAMIN D-3) 50 mcg (2,000 unit) cap Take 1 capsule by mouth once daily. docusate sodium (COLACE) 100 mg capsule Take 1 capsule by mouth two times a day as needed for constipation. ezetimibe (ZETIA) 10 mg tablet Take 1 tablet by mouth once daily. trospium (SANCTURA) 20 mg tablet Take 1 tablet by mouth once daily. amLODIPine (NORVASC) 5 mg tablet Take 1 tablet by mouth once daily. metoprolol tartrate, short acting, (LOPRESSOR) 50 mg tablet Take 1 tablet by mouth three times daily. Aspirin 81 mg Tab Take 1 tablet by mouth once daily. Take with food. No current facility-administered medications on file prior to visit. PAST MEDICAL HISTORY Diagnosis Date Coronary artery disease Diarrhea Generalized anxiety disorder Generalized osteoarthrosis, unspecified site lumbar and c-spine Hematochezia 03/31/2021 Incomplete bladder emptying 05/11/2005 Irritable bowel syndrome Pure hypercholesterolemia Thyroid disease Unspecified essential hypertension Allergies: Ditropan [Oxybutyni* GI Upset Lisinopril Cough Ears/Nose/Mouth/Throat: (+) xerostomia Gastrointestinal: (-) heartburn, (+) diarrhea -resolved. Musculoskeletal: (+) left leg cramps Hematologic/Lymphatic: (+) easy bruising, (+) bleeding, stopped Brilinta BP 121/68 Pulse 76 Resp 16 Wt 68.5 kg (151 lb) BMI 27.62 kg/m? GENERAL: NAD, alert and oriented NEURO: Awake, alert and oriented x3 Labs: - Renal function test: Elevated, history of CKD 1. Acquired hypothyroidism (E03.9) - Current dose of levothyroxine 75 mcg is to be discontinued. - Prescribed levothyroxine 88 mcg daily; prescription sent to [facility]. - Repeat thyroid function tests to be performed before the next visit with Dr. Peter. 2. Hyperlipidemia, unspecified hyperlipidemia type (E78.5) - Continue Zetia; refill ordered. - Continue colestipol 1 g twice daily. 3. Essential (primary) hypertension (I10) - Continue metoprolol twice daily. - Continue amlodipine 5 mg daily. 4. Urinary frequency (R35.0) - Continue trospium as prescribed. 5. Gastro-esophageal reflux disease without esophagitis (K21.9) - Nexium was last ordered in January; not currently experiencing symptoms. - Discontinue Nexium. 6. Constipation, unspecified constipation type (K59.00) - Continue docusate sodium as needed. 7. Chronic ischemic heart disease (I25.9) - Brilinta discontinued due to easy bleeding; cardiology advised to stop. - Continue aspirin 81 mg daily. - Nitroglycerin to be used as needed. The patient indicates understanding of these issues and agrees with the plan. Reviewed red flags and when to seek care sooner. Eric Lockett PA-C 10/28/2024 [facility] 10-25-2024 Note HNO ID: [id number] Author: ROB RAI, ? Service: ? Author Type: Physician Type: Progress Notes Filed: 10/25/2024 10:48 Note Text: Consultation requested by Dr. Peter for an opinion regarding painful toneails. My final recommendations will be communicated back to the requesting physician by way of shared Medical record or letter to requesting physician via US mail. Rachel Guevara is an 84-year-old female presenting for evaluation of painful toenails, bunions, and hammer toes. Toenail Pain: - Reports bleeding and pain in toenails, with one nail split and bleeding. - Denies previous nail removal. - Concerns about foot condition due to upcoming vacation involving extensive walking. Bunions and Hammer Toes: - Reports swelling in the pads of the toes. - Family history of hammer toes. Musculoskeletal: (+) toe pain, (-) foot pain on balls of feet Skin: (+) bleeding toenails, (+) thick toenails, (+) nail splitting, (+) toenail pain, (+) toe swelling PAST MEDICAL HISTORY Diagnosis Date Coronary artery disease Diarrhea Generalized anxiety disorder Generalized osteoarthrosis, unspecified site lumbar and c-spine Hematochezia 03/31/2021 Incomplete bladder emptying 05/11/2005 Irritable bowel syndrome Pure hypercholesterolemia Thyroid disease Unspecified essential hypertension Current Outpatient Medications Medication Sig Dispense Refill cyclobenzaprine HCl (CYCLOBENZAPRINE ORAL) Take 10 mg by mouth three times a day as needed. levothyroxine (SYNTHROID) 88 mcg tablet Take 1 tablet by mouth daily before breakfast. 90 tablet 0 Cholecalciferol, Vitamin D3, (VITAMIN D-3) 50 mcg (2,000 unit) cap Take 1 capsule by mouth once daily. 90 capsule 1 docusate sodium (COLACE) 100 mg capsule Take 1 capsule by mouth two times a day as needed for constipation. 60 capsule 0 acetaminophen (TYLENOL EXTRA STRENGTH) 500 mg tablet Take 1 tablet by mouth every 6 hours as needed for pain. Take this or the hydrocodone/acetaminophen every 6 hours as needed for pain 30 tablet 1 ezetimibe (ZETIA) 10 mg tablet Take 1 tablet by mouth once daily. 90 tablet 3 esomeprazole (NEXIUM) 40 mg capsule Take 1 capsule by mouth daily before breakfast. 90 capsule 3 trospium (SANCTURA) 20 mg tablet Take 1 tablet by mouth once daily. 30 tablet 4 amLODIPine (NORVASC) 5 mg tablet Take 1 tablet by mouth once daily. 14 tablet 0 metoprolol tartrate, short acting, (LOPRESSOR) 50 mg tablet Take 1 tablet by mouth three times daily. 270 tablet 3 Aspirin 81 mg Tab Take 1 tablet by mouth once daily. Take with food. 1 tablet 0 ondansetron (ZOFRAN) 4 mg tablet Take 1 tablet by mouth every 8 hours as needed for nausea/vomiting. (Patient not taking: Reported on 10/24/2024) 15 tablet 0 ketoconazole (NIZORAL) 2 % cream Apply 1 application to affected area two times a day. (Patient not taking: Reported on 10/24/2024) 30 g 0 nystatin (MYCOSTATIN) cream Apply to affected area two times a day. Continue for 1 week after rash resolves (Patient not taking: Reported on 10/24/2024) 30 g 0 No current facility-administered medications for this visit. Family History Problem Relation Age of Onset Heart Mother CABG x3 Hypertension Mother Breast Cancer Mother Heart Father other (lung problems) Father Objective There were no vitals taken for this visit. - Cardiovascular: Dorsalis pedis and posterior tibial pulses non-palpable bilaterally; capillary refill time delayed bilaterally. - Skin: Skin temperature warm to cool. - Musculoskeletal: - Feet: - Bunion deformity bilaterally; hammer toe deformity of bilateral second toes. - Neurological: Protective sensation intact bilaterally; vibratory sensation intact bilaterally. - Dermatological: Toenails 1-5 bilaterally with increased thickening and discomfort; splitting of the left great toenail with lifting; slight callus along the medial aspect of bilateral hallux and medial aspect of bilateral second toes. Imaging: (10/24/2024) Bilateral Foot X-rays: No acute fracture. Evidence of hammer toe deformity in bilateral second toes. Bilateral heel spurs. Slight arthritic changes in both hallux. 1. 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 Bilateral bunions (M21.611) - X-rays from October 24, 2024, confirm hammer toe deformity of bilateral second toe and bunion deformity in both feet. - Slight callus formation along the medial aspect of bilateral hallux and second toe due to friction. - Provided toe spacers to reduce friction and callus formation. callus was reduced with dremmel - Discussed use of orthotic inserts to alleviate pressure and discomfort. 3. Onychomycosis (B35.1) - Toenails 1 through 5 bilateral show increased thickening with discomfort; splitting of the left great toenail with lifting observed. - Trimmed and filed toenails to reduce discomfort. toenails 1-5 b/l debrided in length and thickness - Discussed options for ongoing management, incl (more content not included)... [facility] 10-25-2024 History of Present illness Narrative Consultation requested by Dr. Peter for an opinion regarding painful toneails. My final recommendations will be communicated back to the requesting physician by way of shared Medical record or letter to requesting physician via [place] mail. Subjective Paola is an 84-year-old female presenting for evaluation of painful toenails, bunions, and hammer toes. Toenail Pain: - Reports bleeding and pain in toenails, with one nail split and bleeding. - Denies previous nail removal. - Concerns about foot condition due to upcoming vacation involving extensive walking. Bunions and Hammer Toes: - Reports swelling in the pads of the toes. - Family history of hammer toes. Musculoskeletal: (+) toe pain, (-) foot pain on balls of feet Skin: (+) bleeding toenails, (+) thick toenails, (+) nail splitting, (+) toenail pain, (+) toe swelling PAST MEDICAL HISTORY Diagnosis Date Coronary artery disease Diarrhea Generalized anxiety disorder Generalized osteoarthrosis, unspecified site lumbar and c-spine Hematochezia 03/31/2021 Incomplete bladder emptying 05/11/2005 Irritable bowel syndrome Pure hypercholesterolemia Thyroid disease Unspecified essential hypertension Current Outpatient Medications Medication Sig Dispense Refill cyclobenzaprine HCl (CYCLOBENZAPRINE ORAL) Take 10 mg by mouth three times a day as needed. levothyroxine (SYNTHROID) 88 mcg tablet Take 1 tablet by mouth daily before breakfast. 90 tablet 0 Cholecalciferol, Vitamin D3, (VITAMIN D-3) 50 mcg (2,000 unit) cap Take 1 capsule by mouth once daily. 90 capsule 1 docusate sodium (COLACE) 100 mg capsule Take 1 capsule by mouth two times a day as needed for constipation. 60 capsule 0 acetaminophen (TYLENOL EXTRA STRENGTH) 500 mg tablet Take 1 tablet by mouth every 6 hours as needed for pain. Take this or the hydrocodone/acetaminophen every 6 hours as needed for pain 30 tablet 1 ezetimibe (ZETIA) 10 mg tablet Take 1 tablet by mouth once daily. 90 tablet 3 esomeprazole (NEXIUM) 40 mg capsule Take 1 capsule by mouth daily before breakfast. 90 capsule 3 trospium (SANCTURA) 20 mg tablet Take 1 tablet by mouth once daily. 30 tablet 4 amLODIPine (NORVASC) 5 mg tablet Take 1 tablet by mouth once daily. 14 tablet 0 metoprolol tartrate, short acting, (LOPRESSOR) 50 mg tablet Take 1 tablet by mouth three times daily. 270 tablet 3 Aspirin 81 mg Tab Take 1 tablet by mouth once daily. Take with food. 1 tablet 0 ondansetron (ZOFRAN) 4 mg tablet Take 1 tablet by mouth every 8 hours as needed for nausea/vomiting. (Patient not taking: Reported on 10/24/2024) 15 tablet 0 ketoconazole (NIZORAL) 2 % cream Apply 1 application to affected area two times a day. (Patient not taking: Reported on 10/24/2024) 30 g 0 nystatin (MYCOSTATIN) cream Apply to affected area two times a day. Continue for 1 week after rash resolves (Patient not taking: Reported on 10/24/2024) 30 g 0 No current facility-administered medications for this visit. Family History Problem Relation Age of Onset Heart Mother CABG x3 Hypertension Mother Breast Cancer Mother Heart Father other (lung problems) Father Objective There were no vitals taken for this visit. - Cardiovascular: Dorsalis pedis and posterior tibial pulses non-palpable bilaterally; capillary refill time delayed bilaterally. - Skin: Skin temperature warm to cool. - Musculoskeletal: - Feet: - Bunion deformity bilaterally; hammer toe deformity of bilateral second toes. - Neurological: Protective sensation intact bilaterally; vibratory sensation intact bilaterally. - Dermatological: Toenails 1-5 bilaterally with increased thickening and discomfort; splitting of the left great toenail with lifting; slight callus along the medial aspect of bilateral hallux and medial aspect of bilateral second toes. Imaging: (10/24/2024) Bilateral Foot X-rays: No acute fracture. Evidence of hammer toe deformity in bilateral second toes. Bilateral heel spurs. Slight arthritic changes in both hallux. 1. 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 Bilateral bunions (M21.611) - X-rays from October 24, 2024, confirm hammer toe deformity of bilateral second toe and bunion deformity in both feet. - Slight callus formation along the medial aspect of bilateral hallux and second toe due to friction. - Provided toe spacers to reduce friction and callus formation. callus was reduced with dremmel - Discussed use of orthotic inserts to alleviate pressure and discomfort. 3. Onychomycosis (B35.1) - Toenails 1 through 5 bilateral show increased thickening with discomfort; splitting of the left great toenail with lifting observed. - Trimmed and filed toenails to reduce discomfort. toenails 1-5 b/l debrided in length and thickness - Discussed options for ongoing management, including regular trimming every 3 months. - Considered topical antifungal treatment, though effectiveness may be limited due to severe thickening. - Discussed potential for toenail removal if conservative measures fail; would require vascular assessment prior to procedure. 4. Diminished pulses in lower extremity (R09.89) - Dorsalis pedis and posterior tibial pulses non-palpable bilaterally; capillary refill time delayed. - Skin temperature warm to cool. - Discussed implications for toenail care and potential coverage by insurance due to vascular insufficiency. 5. Pain in toe of left foot (M79.675) 6. Pain in toe of right foot (M79.674) - Pain primarily localized to toenails due to thickening and splitting. - Trimmed and filed toenails to alleviate pain. - Provided toe spacers to reduce friction and prevent further discomfort. - Scheduled follow-up every 3 months for toenail care. Attestation Recording using [employer] software for draft documentation of the visit was discussed with the patient/authorized outside industrial sales representative; all questions welcomed and answered. Patient/authorized outside industrial sales representative agreed to proceed Rob Rai DPM Per Dr. Rai, Lisette was provided with powerstep gel inserts, size 7, and instructed/educated in its application, wear, and care. All questions were answered, and patient was able to demonstrate competence with the necessary skills to utilize the above equipment. Peggy House LPN AMB ROOMING INTAKE FLOWSHEET DATA Pain Pain Level: 2 Pain Location: Other: See Comment (left foot worse than right) Description: Sharp Frequency: Continuous Intervention/Comfort measure: Reposition, Relaxation Patient presents with: Left Foot - Hammer Toe, Pain, nail deformity , New, Bunion, Swelling Right Foot - Hammer Toe, Pain, nail deformity , New, Bunion, Swelling Peggy House LPN documented in this encounter [facility] 10-24-2024 Note HNO ID: [id number] Author: PEGGY HOUSE LPN Service: ? Author Type: LICENSED NURSE Type: Progress Notes Filed: 10/25/2024 10:48 Note Text: Per Dr. Rai, Lisette was provided with powerstep gel inserts, size 7, and instructed/educated in its application, wear, and care. All questions were answered, and patient was able to demonstrate competence with the necessary skills to utilize the above equipment. Peggy House LPN [facility] 10-24-2024 Instructions Rob Rai - 10/24/2024 10:17 AM EDT Powerstep Original Full length. Can purchase at [facility] [employer] and boots,shoes and more here in [place], [employer] in [place] or [place]. Also can find in [place] in [facility]. Powersteps can also be purchased online, starting around $45.00 If you have a metatarsal or dancer pad for your feet apply the pad directly to the insole so you can interchange between your shoes. Find a shoe with a removable insole and take this out and replace with your powerstep insole. Always bring powersteps with you when shopping for shoes so that you can make sure that everything fits well together documented in this encounter [facility] 10-24-2024 Note HNO ID: [id number] Author: PEGGY HOUSE LPN Service: ? Author Type: LICENSED NURSE Type: Progress Notes Filed: 10/25/2024 10:48 Note Text: AMB ROOMING INTAKE FLOWSHEET DATA Pain Pain Level: 2 Pain Location: Other: See Comment (left foot worse than right) Description: Sharp Frequency: Continuous Intervention/Comfort measure: Reposition, Relaxation Patient presents with: Left Foot - Hammer Toe, Pain, nail deformity , New, Bunion, Swelling Right Foot - Hammer Toe, Pain, nail deformity , New, Bunion, Swelling Peggy LUIS M House [facility] 10-24-2024 History of Present illness Narrative Radiology Service Progress Note PATIENT NAME: Lisette Enamorado DATE OF SERVICE: October 24, 2024 TIME: 8:25 AM PATIENT IDENTITY VERIFICATION COMPLETED USING TWO (2) IDENTIFIERS: Name and Date of confirmed by patient verbally. FALL SCREENING: Has the patient had 2 falls in the last year or 1 fall with injury or currently using an Ambulatory Assistive Device (Walker, Cane, Wheelchair, Crutches, etc.)? No PATIENT GENDER DATA: Assigned female at . status: : No status: NO. PATIENT RELEVANT IMPLANT DATA REVIEWED: Yes PATIENT PRESENTS WITH AN IMPLANTABLE OR ATTACHED DCS ENGINEER: No RADIOLOGY DEPARTMENT: General X-ray: Exam(s) Completed: Lower Extremity X-Ray(s): Foot, Bilateral PERIPHERAL IV DATA: Not applicable SIGNED BY: RT David(Chelsie) October 24, 2024 8:25 AM documented in this encounter [facility] 10-24-2024 Note HNO ID: [id number] Author: VIRAL PATTON RT(Chelsie) Service: ? Author Type: Harvesting Supervisor Type: Progress Notes Filed: 10/24/2024 08:40 Note Text: Radiology Service Progress Note PATIENT NAME: Lisette Enamorado DATE OF SERVICE: October 24, 2024 TIME: 8:25 AM PATIENT IDENTITY VERIFICATION COMPLETED USING TWO (2) IDENTIFIERS: Name and Date of confirmed by patient verbally. FALL SCREENING: Has the patient had 2 falls in the last year or 1 fall with injury or currently using an Ambulatory Assistive Device (Walker, Cane, Wheelchair, Crutches, etc.)? No PATIENT GENDER DATA: Assigned female at . status: : No status: NO. PATIENT RELEVANT IMPLANT DATA REVIEWED: Yes PATIENT PRESENTS WITH AN IMPLANTABLE OR ATTACHED DCS ENGINEER: No RADIOLOGY DEPARTMENT: General X-ray: Exam(s) Completed: Lower Extremity X-Ray(s): Foot, Bilateral PERIPHERAL IV DATA: Not applicable SIGNED BY: RT David(R) October 24, 2024 8:25 AM [facility] 10-21-2024 Note HNO ID: [id number] Author: LISA PETER MD Service: ? Author Type: Physician Type: Progress Notes Filed: 10/21/2024 18:40 Note Text: Reason for Visit Travel advice HPI Paola is a 84-year-old female, with a history of hammer toes, bunions, diastolic dysfunction, and CAD, presenting for evaluation of foot pain and to discuss the need for a transport chair for an upcoming trip to [place]. Paola reports chronic foot pain secondary to hammer toes and bunions, which exacerbates with ambulation, particularly over long distances. She can ambulate short distances without pain, but experiences significant discomfort when walking longer distances, such as at train stations or airports. She recalls a recent visit to the [facility], where she was unable to complete the uphill return walk and required a cart for assistance. She estimates her walking tolerance to be less than 0.2 miles before needing to rest. Paola is planning a month-long trip to [place] with her son, which will involve extensive walking. Her son has suggested obtaining a transport chair to assist with mobility during the trip. She has contacted , which requires a physician's prescription for the chair. Paola is seeking medical evaluation to determine the necessity of the chair and to obtain the required documentation. She has not seen a high school math tutor in several years and is concerned about the potential for foot infections, citing a neighbor's experience with a foot sore that led to a toe amputation. She denies current bleeding from her feet but notes a history of minor bleeding. Additionally, Paola reports persistent fatigue and poor sleep quality. Social History Tobacco Use Smoking status: Never Smokeless tobacco: Never Vaping Use Vaping status: Never Used Substance Use Topics Alcohol use: Yes Comment: rare glass of wine Drug use: No Past medical history, appointments, medications, allergies reviewed. Pertinent Lab/Diagnostic Studies are reviewed and discussed today Current Outpatient Medications: levothyroxine (SYNTHROID) 88 mcg tablet ticagrelor (BRILINTA) 90 mg tablet ondansetron (ZOFRAN) 4 mg tablet Cholecalciferol, Vitamin D3, (VITAMIN D-3) 50 mcg (2,000 unit) cap colestipol (COLESTID) 1 gram tablet colestipol (COLESTID) 1 gram tablet ketoconazole (NIZORAL) 2 % cream nystatin (MYCOSTATIN) cream docusate sodium (COLACE) 100 mg capsule acetaminophen (TYLENOL EXTRA STRENGTH) 500 mg tablet ezetimibe (ZETIA) 10 mg tablet esomeprazole (NEXIUM) 40 mg capsule amLODIPine (NORVASC) 5 mg tablet metoprolol tartrate, short acting, (LOPRESSOR) 50 mg tablet Aspirin 81 mg Tab trospium (SANCTURA) 20 mg tablet Health Maintenance Depression Screening RSV Vaccine(1 - 1-dose 75+ series) Advance Directive Discussion@ Review Of Systems Constitutional: (+) fatigue, (+) sleep disturbance Musculoskeletal: (+) foot pain with prolonged walking Physical Exam BP 159/67 Pulse 75 Resp 16 Wt 68.9 kg (152 lb) BMI 27.80 kg/m? GENERAL: NAD, alert and oriented. SKIN: unremarkable, no rash or skin lesions. HEAD: normocephalic. LUNGS: Clear to auscultation bilaterally, no wheezes/rhonchi/rales. HEART: Regular rate and rhythm, no murmurs. No ectopy. EXTREMITIES: Hammer toes on second and third toes bilaterally, bunions present. Erythema noted on second and third toes bilaterally. No edema. NEURO: Awake, alert and oriented x3, cranial nerves II-XII grossly intact, normal gait, no involuntary motions. Assessment and Plan 1. 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 - Recommended consultation with a high school math tutor for custom orthotic inserts to alleviate pressure and improve comfort during ambulation. - Initiated prescription for a [place] Transport Chair, lightweight (20 lbs), to assist with mobility during extended travel in [place]. 2. Grade II diastolic dysfunction (I51.89) Chronic condition, contributing to decreased exercise tolerance and fatigue. 3. Coronary artery disease involving [place] coronary artery of [place] heart without angina pectoris (I25.10) Stable, no current angina pectoris reported. Voice recognition software was used to compose this office note. Please excuse any unintended typographical errors. Recording using ambient AI software for draft documentation of the visit was discussed with the patient/authorized outside industrial sales representative; all questions welcomed and answered. Patient/authorized outside industrial sales representative agreed to proceed Lisa Peter MD [facility] 10-21-2024 History of Present illness Narrative Reason for Visit Travel advice HPI Paola is a 84-year-old female, with a history of hammer toes, bunions, diastolic dysfunction, and CAD, presenting for evaluation of foot pain and to discuss the need for a transport chair for an upcoming trip to [place]. Paola reports chronic foot pain secondary to hammer toes and bunions, which exacerbates with ambulation, particularly over long distances. She can ambulate short distances without pain, but experiences significant discomfort when walking longer distances, such as at train stations or airports. She recalls a recent visit to the [facility], where she was unable to complete the uphill return walk and required a cart for assistance. She estimates her walking tolerance to be less than 0.2 miles before needing to rest. Paola is planning a month-long trip to [place] with her son, which will involve extensive walking. Her son has suggested obtaining a transport chair to assist with mobility during the trip. She has contacted [facility], which requires a physician's prescription for the chair. Paola is seeking medical evaluation to determine the necessity of the chair and to obtain the required documentation. She has not seen a high school math tutor in several years and is concerned about the potential for foot infections, citing a neighbor's experience with a foot sore that led to a toe amputation. She denies current bleeding from her feet but notes a history of minor bleeding. Additionally, Paola reports persistent fatigue and poor sleep quality. Social History Tobacco Use Smoking status: Never Smokeless tobacco: Never Vaping Use Vaping status: Never Used Substance Use Topics Alcohol use: Yes Comment: rare glass of wine Drug use: No Past medical history, appointments, medications, allergies reviewed. Pertinent Lab/Diagnostic Studies are reviewed and discussed today Current Outpatient Medications: levothyroxine (SYNTHROID) 88 mcg tablet ticagrelor (BRILINTA) 90 mg tablet ondansetron (ZOFRAN) 4 mg tablet Cholecalciferol, Vitamin D3, (VITAMIN D-3) 50 mcg (2,000 unit) cap colestipol (COLESTID) 1 gram tablet colestipol (COLESTID) 1 gram tablet ketoconazole (NIZORAL) 2 % cream nystatin (MYCOSTATIN) cream docusate sodium (COLACE) 100 mg capsule acetaminophen (TYLENOL EXTRA STRENGTH) 500 mg tablet ezetimibe (ZETIA) 10 mg tablet esomeprazole (NEXIUM) 40 mg capsule amLODIPine (NORVASC) 5 mg tablet metoprolol tartrate, short acting, (LOPRESSOR) 50 mg tablet Aspirin 81 mg Tab trospium (SANCTURA) 20 mg tablet Health Maintenance Depression Screening RSV Vaccine(1 - 1-dose 75+ series) Advance Directive Discussion@ Review Of Systems Constitutional: (+) fatigue, (+) sleep disturbance Musculoskeletal: (+) foot pain with prolonged walking Physical Exam BP 159/67 Pulse 75 Resp 16 Wt 68.9 kg (152 lb) BMI 27.80 kg/m GENERAL: NAD, alert and oriented. SKIN: unremarkable, no rash or skin lesions. HEAD: normocephalic. LUNGS: Clear to auscultation bilaterally, no wheezes/rhonchi/rales. HEART: Regular rate and rhythm, no murmurs. No ectopy. EXTREMITIES: Hammer toes on second and third toes bilaterally, bunions present. Erythema noted on second and third toes bilaterally. No edema. NEURO: Awake, alert and oriented x3, cranial nerves II-XII grossly intact, normal gait, no involuntary motions. Assessment and Plan 1. 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 - Recommended consultation with a high school math tutor for custom orthotic inserts to alleviate pressure and improve comfort during ambulation. - Initiated prescription for a [place] Transport Chair, lightweight (20 lbs), to assist with mobility during extended travel in [place]. 2. Grade II diastolic dysfunction (I51.89) Chronic condition, contributing to decreased exercise tolerance and fatigue. 3. Coronary artery disease involving [place] coronary artery of [place] heart without angina pectoris (I25.10) Stable, no current angina pectoris reported. Voice recognition software was used to compose this office note. Please excuse any unintended typographical errors. Recording using ambient [employer] [place] software for draft documentation of the visit was discussed with the patient/authorized outside industrial sales representative; all questions welcomed and answered. Patient/authorized outside industrial sales representative agreed to proceed Lisa Peter MD documented in this encounter [facility] 10-15-2024 Telephone encounter Note Daughter in law notified, states no longer needed and they mat still go ahead with the plans for travel chair but will let office know. [facility] 10-15-2024 Miscellaneous Notes Daughter in law notified, states no longer needed and they mat still go ahead with the plans for travel chair but will let office know. We dont usually give recommendations like that. If there is a reason that we dont want someone to travel we usually let them know. For instance they have an impending surgery and are unstable etc. I dont see a reason as such for patient I can put in there that there is no change in her condition. I can cancel the script. It will still show a trail but it should be ok Regards, Lisa Peter MD Pts daughter in law Starr called and is notified of providers message. She voices understanding, but is asking if provider could put that the Pt already had the bunions and the hammer toes, and her health is stable. She wanted to know if provider could cancel the request for the transport chair. I told her she could, but it would still show I the system that she had put it in. She states when they try to get travel insurance on her mother in law they will look to see if there were any changes in her treatment, and they would consider that a change. She said they just wanted the travel chair as a precaution. She wanted to know providers opinion if she thinks the Pt is able to travel or not. She said if the provider doesn't think she is ok to travel she would like a call back, so they can make other plans. Please call and advise. Lori Aldana RN I dont think I can change the history I wrote about the bunions and the hammer toes. RegardsLisa MD Pts daughter in law Starr called in and states she doesn't want the provider to send in the order for the transfer chair. I let her know that provider had already put in the order for the chair, but I don't think it had been sent yet. She states if there is any change in treatment for her that her insurance won't cover her for travel. She reports they are still going to get the chair but on their own. She asked if the provider could document that she didn't have any change in condition if it's ok for her to travel. I let her know I would have provider get back to her. Lori Aldana RN documented in this encounter [facility] 10-15-2024 Telephone encounter Note We dont usually give recommendations like that. If there is a reason that we dont want someone to travel we usually let them know. For instance they have an impending surgery and are unstable etc. I dont see a reason as such for patient I can put in there that there is no change in her condition. I can cancel the script. It will still show a trail but it should be ok Lisa Nunez MD [facility] 10-15-2024 Telephone encounter Note Patient calling and states that she is almost out of colestipol. Advised patient that there should be refill of medication at [facility] and that she should contact [facility] for refill. Patient voiced understanding. Patient will call back if she has any problems getting refill. Abby Tsai RN [facility] 10-15-2024 Miscellaneous Notes Patient calling and states that she is almost out of colestipol. Advised patient that there should be refill of medication at [facility] and that she should contact [facility] for refill. Patient voiced understanding. Patient will call back if she has any problems getting refill. Abby Tsai RN documented in this encounter [facility] 10-15-2024 Telephone encounter Note Pts daughter in law Starr called and is notified of providers message. She voices understanding, but is asking if provider could put that the Pt already had the bunions and the hammer toes, and her health is stable. She wanted to know if provider could cancel the request for the transport chair. I told her she could, but it would still show I the system that she had put it in. She states when they try to get travel insurance on her mother in law they will look to see if there were any changes in her treatment, and they would consider that a change. She said they just wanted the travel chair as a precaution. She wanted to know providers opinion if she thinks the Pt is able to travel or not. She said if the provider doesn't think she is ok to travel she would like a call back, so they can make other plans. Please call and advise. Lori Aldana RN [facility] 10-14-2024 Telephone encounter Note I dont think I can change the history I wrote about the bunions and the hammer toes. Regards, Lisa Peter MD [facility] 10-13-2024 Telephone encounter Note Pts daughter in law Starr called in and states she doesn't want the provider to send in the order for the transfer chair. I let her know that provider had already put in the order for the chair, but I don't think it had been sent yet. She states if there is any change in treatment for her that her insurance won't cover her for travel. She reports they are still going to get the chair but on their own. She asked if the provider could document that she didn't have any change in condition if it's ok for her to travel. I let her know I would have provider get back to her. Lori Aldana RN [facility] 08-15-2024 History of Present illness Narrative CC: Patient presents with: Follow Up HPI Lisette Enamorado is a 84 year old female who presents today for above. She was seen on 08/12 for body aches, cough and runny nose x 1 day. She was started on Tamiflu until testing resulted however she was negative for COVID, influenza and RSV. Today patient reports she is feeling much better and all symptoms have completely resolved. Denies any new symptoms. She needs a refill on levothyroxine. Taking daily on an empty stomach. Last TSH was almost two years ago. She is overdue for routine follow-up, has only been seen in the past couple years for acute visits. Review of Systems Constitutional: Negative for chills, diaphoresis, fatigue and fever. HENT: Negative for congestion, postnasal drip, rhinorrhea, sinus pressure, sinus pain, sneezing and sore throat. Respiratory: Negative for cough, shortness of breath and wheezing. Cardiovascular: Negative for chest pain, palpitations and leg swelling. PAST MEDICAL HISTORY Diagnosis Date Coronary artery [...] SPEC WHEN PFRMD 08/11/2019 [facility] VARICIES INJ 08/08/2021 ESOPHAGOGASTRODUODENOSCOPY TRANSORAL DIAGNOSTIC 08/09/2015 EGD ESOPHAGOGASTRODUODENOSCOPY TRANSORAL DIAGNOSTIC 08/11/2019 EGD LEFT HEART CATH,PERCUTANEOUS 09/26/2012 Cardiac cath, L heart [facility] - chest pain STENT PLACEMENT 03/22, 09/21 medicated cardiac stent TONSILLECTOMY HX TONSILLECTOMY PRIMARY/SECONDARY <AGE 12 Tonsillectomy ALLERGIES Ditropan [Oxybutynin Chloride] and Lisinopril MEDICATIONS ondansetron (ZOFRAN) 4 mg tablet Take 1 tablet by mouth every 8 hours as needed for nausea/vomiting. Cholecalciferol, Vitamin D3, (VITAMIN D-3) 50 mcg (2,000 unit) cap Take 1 capsule by mouth once daily. colestipol (COLESTID) 1 gram tablet Take 1 tablet by mouth two times a day. docusate sodium (COLACE) 100 mg capsule Take 1 capsule by mouth two times a day as needed for constipation. acetaminophen (TYLENOL EXTRA STRENGTH) 500 mg tablet Take 1 tablet by mouth every 6 hours as needed for pain. Take this or the hydrocodone/acetaminophen every 6 hours as needed for pain ezetimibe (ZETIA) 10 mg tablet Take 1 tablet by mouth once daily. levothyroxine (SYNTHROID) 75 mcg tablet Take 1 tablet by mouth daily before breakfast. esomeprazole (NEXIUM) 40 mg capsule Take 1 capsule by mouth daily before breakfast. amLODIPine (NORVASC) 5 mg tablet Take 1 tablet by mouth once daily. metoprolol tartrate, short acting, (LOPRESSOR) 50 mg tablet Take 1 tablet by mouth three times daily. Aspirin 81 mg Tab Take 1 tablet by mouth once daily. Take with food. ticagrelor (BRILINTA) 90 mg tablet Take 1 tablet by mouth one time only for 1 dose. oseltamivir (TAMIFLU) 75 mg capsule Take 1 capsule by mouth two times a day for 5 days. colestipol (COLESTID) 1 gram tablet Take 1 tablet by mouth two times a day. Dr. Zarate ketoconazole (NIZORAL) 2 % cream Apply 1 application to affected area two times a day. nystatin (MYCOSTATIN) cream Apply to affected area two times a day. Continue for 1 week after rash resolves trospium (SANCTURA) 20 mg tablet Take 1 tablet by mouth once daily. FAMILY HISTORY Problem Relation Age of Onset Heart Mother CABG x3 Hypertension Mother Breast Cancer Mother Heart Father other (lung problems) Father Social History Tobacco Use Smoking status: Never Smokeless tobacco: Never Vaping Use Vaping status: Never Used Substance Use Topics Alcohol use: Yes Comment: rare glass of wine Drug use: No BP 114/72 Pulse 68 Resp 14 Wt 66.9 kg (147 lb 7.8 oz) SpO2 96% BMI 26.98 kg/m Physical Exam Vitals reviewed. Constitutional: Appearance: Normal appearance. Cardiovascular: Rate and Rhythm: Normal rate and regular rhythm. Pulmonary: Effort: Pulmonary effort is normal. Breath sounds: Normal breath sounds. No wheezing, rhonchi or rales. Skin: General: Skin is warm and dry. Neurological: Mental Status: She is alert. Psychiatric: Mood and Affect: Mood normal. DATA REVIEWED: Most recent labs ASSESSMENT/PLAN: 1. Acquired hypothyroidism - ICD9: 244.9, ICD10: E03.9 (primary diagnosis) - Instructed patient on importance of taking on an empty stomach either first thing in the morning or at bedtime. - check TSH today - continue current dose of Synthroid for now - LIPID PANEL BASIC 2. Hyperlipidemia, unspecified hyperlipidemia type - ICD9: 272.4, ICD10: E78.5 - Control undetermined, due for labs - THYROID STIMULATING HORMONE 3. Flu-like symptoms - ICD9: 780.99, ICD10: R68.89 Etiology unclear. Testing negative. Resolved Prescription instructions reviewed with patient as applicable. Potential red flag symptoms discussed with the patient. Reviewed appropriate action plan to take if red flag symptoms occur. Patient agreeable to treatment plan. Shante Yeboah APRN.CNP Medical Decision Making: Problems: Moderate: 2+ stable chronic illnesses Data: Unique test result(s) reviewed: 1 Unique test(s) ordered: 1 Risk: Minimal: Minimal risk from testing/treatment Moderate: Drug management Medical Decision Making Level: 4 - Moderate documented in this encounter [facility] 08-15-2024 Note HNO ID: [id number] Author: SHANTE YEBOAH APRN.CNP Service: ? Author Type: Nurse Practitioner Type: Progress Notes Filed: 08/15/2024 10:13 Note Text: CC: Patient presents with: Follow Up HPI Lisette Enamorado is a 84 year old female who presents today for above. She was seen on 08/12 for body aches, cough and runny nose x 1 day. She was started on Tamiflu until testing resulted however she was negative for COVID, influenza and RSV. Today patient reports she is feeling much better and all symptoms have completely resolved. Denies any new symptoms. She needs a refill on levothyroxine. Taking daily on an empty stomach. Last TSH was almost two years ago. She is overdue for routine follow-up, has only been seen in the past couple years for acute visits. Review of Systems Constitutional: Negative for chills, diaphoresis, fatigue and fever. HENT: Negative for congestion, postnasal drip, rhinorrhea, sinus pressure, sinus pain, sneezing and sore throat. Respiratory: Negative for cough, shortness of breath and wheezing. Cardiovascular: Negative for chest pain, palpitations and leg swelling. PAST MEDICAL HISTORY Diagnosis Date Coronary artery [...] HEART CATH,PERCUTANEOUS 09/26/2012 Cardiac cath, L heart [facility] - chest pain STENT PLACEMENT 03/22, 09/21 medicated cardiac stent TONSILLECTOMY HX TONSILLECTOMY PRIMARY/SECONDARY Tonsillectomy ALLERGIES Ditropan [Oxybutynin Chloride] and Lisinopril MEDICATIONS ondansetron (ZOFRAN) 4 mg tablet Take 1 tablet by mouth every 8 hours as needed for nausea/vomiting. Cholecalciferol, Vitamin D3, (VITAMIN D-3) 50 mcg (2,000 unit) cap Take 1 capsule by mouth once daily. colestipol (COLESTID) 1 gram tablet Take 1 tablet by mouth two times a day. docusate sodium (COLACE) 100 mg capsule Take 1 capsule by mouth two times a day as needed for constipation. acetaminophen (TYLENOL EXTRA STRENGTH) 500 mg tablet Take 1 tablet by mouth every 6 hours as needed for pain. Take this or the hydrocodone/acetaminophen every 6 hours as needed for pain ezetimibe (ZETIA) 10 mg tablet Take 1 tablet by mouth once daily. levothyroxine (SYNTHROID) 75 mcg tablet Take 1 tablet by mouth daily before breakfast. esomeprazole (NEXIUM) 40 mg capsule Take 1 capsule by mouth daily before breakfast. amLODIPine (NORVASC) 5 mg tablet Take 1 tablet by mouth once daily. metoprolol tartrate, short acting, (LOPRESSOR) 50 mg tablet Take 1 tablet by mouth three times daily. Aspirin 81 mg Tab Take 1 tablet by mouth once daily. Take with food. ticagrelor (BRILINTA) 90 mg tablet Take 1 tablet by mouth one time only for 1 dose. oseltamivir (TAMIFLU) 75 mg capsule Take 1 capsule by mouth two times a day for 5 days. colestipol (COLESTID) 1 gram tablet Take 1 tablet by mouth two times a day. Dr. Zarate ketoconazole (NIZORAL) 2 % cream Apply 1 application to affected area two times a day. nystatin (MYCOSTATIN) cream Apply to affected area two times a day. Continue for 1 week after rash resolves trospium (SANCTURA) 20 mg tablet Take 1 tablet by mouth once daily. FAMILY HISTORY Problem Relation Age of Onset Heart Mother CABG x3 Hypertension Mother Breast Cancer Mother Heart Father other (lung problems) Father Social History Tobacco Use Smoking status: Never Smokeless tobacco: Never Vaping Use Vaping status: Never Used Substance Use Topics Alcohol use: Yes Comment: rare glass of wine Drug use: No BP 114/72 Pulse 68 Resp 14 Wt 66.9 kg (147 lb 7.8 oz) SpO2 96% BMI 26.98 kg/m? Physical Exam Vitals reviewed. Constitutional: Appearance: Normal appearance. Cardiovascular: Rate and Rhythm: Normal rate and regular rhythm. Pulmonary: Effort: Pulmonary effort is normal. Breath sounds: Normal breath sounds. No wheezing, rhonchi or rales. Skin: General: Skin is warm and dry. Neurological: Mental Status: She is alert. Psychiatric: Mood and Affect: Mood normal. (more content not included)... [facility] 08-13-2024 Telephone encounter Note Left message to return call to schedule a follow up appointment Lesly Beverly MA [facility] 08-13-2024 Miscellaneous Notes Left message to return call to schedule a follow up appointment Lesly Beverly MA I spoke with patient this morning and let her know that COVID/flu/RSV were negative. Please schedule a follow up appointment at the end of this week for recheck. I did order labs if not improving, and would consider a CXR. She is overall slightly better this morning. Still having some upper back and arm pain and body aches. Cough throughout the night, but slightly better this morning. Denies any SOB, chest pain, pressure, dizziness. No additional vomiting. Reviewed red flags and when to seek care sooner in ED Eric Lockett PA-C 08/13/2024 documented in this encounter [facility] 08-13-2024 Telephone encounter Note I spoke with patient this morning and let her know that COVID/flu/RSV were negative. Please schedule a follow up appointment at the end of this week for recheck. I did order labs if not improving, and would consider a CXR. She is overall slightly better this morning. Still having some upper back and arm pain and body aches. Cough throughout the night, but slightly better this morning. Denies any SOB, chest pain, pressure, dizziness. No additional vomiting. Reviewed red flags and when to seek care sooner in ED Eric Lockett PA-C 08/13/2024 [facility] 08-12-2024 Note SARS-COV-2 (AGENT OF COVID-19) RNA: Not detected INFLUENZA A RNA: Not detected INFLUENZA B RNA: Not detected RESPIRATORY SYNCYTIAL VIRUS (RSV) RNA: Not detected [facility] Comment on above: Performed By: #### [id number] ####[facility]CLIA [id number] [address] [place] 08-12-2024 Note HNO ID: [id number] Author: ERIC LOCKETT PA-C Service: ? Author Type: Physician Sap Portal Architect Type: Progress Notes Filed: 08/12/2024 18:28 Note Text: 08/12/2024 No chief complaint on file. SUBJECTIVE: This is a 84 year old that is here today for Complaint(s) of body aches x early yesterday morning. Notes chills. Has had rhinorrhea and occasional cough associated. Has not measured her temperature, but has chills. Describes pain across her upper back and into her shoulders, in her back, and notes leg pain DIONNE. Overall having body aches. Has tried tylenol/motrin. No calf edema. No recent travel. Has had chronic leg pain, and a recent US leg that was negative for DVT. Denies chest pain, SOB, nausea, vomiting, abdominal pain, dysuria, numbness/tingling, paralysis, dizziness. Has not taken her BP or other medications today. She has had intermittent, CORONEL,denies any CORONEL currently. Denies worst CORONEL of life. Has urinary frequency, but this is a chronic issue for patient. No dysuria, hematuria. No lfu shot this year. PAST MEDICAL HISTORY Diagnosis Date Coronary artery disease Diarrhea Generalized anxiety disorder Generalized osteoarthrosis, unspecified site lumbar and c-spine Hematochezia 03/31/2021 Incomplete bladder emptying 05/11/2005 Irritable bowel syndrome Pure hypercholesterolemia Thyroid disease Unspecified essential hypertension ALLERGIES Ditropan [Oxybutynin Chloride] and Lisinopril MEDICATIONS Current Outpatient Medications Medication Sig Cholecalciferol, Vitamin D3, (VITAMIN D-3) 50 mcg (2,000 unit) cap Take 1 capsule by mouth once daily. colestipol (COLESTID) 1 gram tablet Take 1 tablet by mouth two times a day. Dr. Zarate (Patient not taking: Reported on 06/24/2024) colestipol (COLESTID) 1 gram tablet Take 1 tablet by mouth two times a day. ketoconazole (NIZORAL) 2 % cream Apply 1 application to affected area two times a day. nystatin (MYCOSTATIN) cream Apply to affected area two times a day. Continue for 1 week after rash resolves docusate sodium (COLACE) 100 mg capsule Take 1 capsule by mouth two times a day as needed for constipation. acetaminophen (TYLENOL EXTRA STRENGTH) 500 mg tablet Take 1 tablet by mouth every 6 hours as needed for pain. Take this or the hydrocodone/acetaminophen every 6 hours as needed for pain ticagrelor (BRILINTA) 90 mg tablet Take 1 tablet by mouth two times a day. (Patient not taking: Reported on 12/07/2023) ezetimibe (ZETIA) 10 mg tablet Take 1 tablet by mouth once daily. levothyroxine (SYNTHROID) 75 mcg tablet Take 1 tablet by mouth daily before breakfast. esomeprazole (NEXIUM) 40 mg capsule Take 1 capsule by mouth daily before breakfast. trospium (SANCTURA) 20 mg tablet Take 1 tablet by mouth once daily. amLODIPine (NORVASC) 5 mg tablet Take 1 tablet by mouth once daily. metoprolol tartrate, short acting, (LOPRESSOR) 50 mg tablet Take 1 tablet by mouth three times daily. Aspirin 81 mg Tab Take 1 tablet by mouth once daily. Take with food. No current facility-administered medications for this visit. SOCIAL HISTORY Social History Tobacco Use Smoking status: Never Smokeless tobacco: Never Vaping Use Vaping status: Never Used Substance Use Topics Alcohol use: Yes Comment: rare glass of wine Drug use: No REVIEW OF SYSTEMS See HPI OBJECTIVE: There were no vitals taken for this visit. APPEARANCE alert, in no acute distress, well-hydrated, well nourished. Became nauseous and slightly lightheaded and vomited in the office. After laying down patient significantly improved. Denies nausea. Patient chilling with blankets in office visit. Speaking clearly and appropriate response to provider. EYES PERRLA, conjunctiva and sclera normal. EARS External ears normal, NOSE/SINUS Nares normal. Septum midline. Mucosa normal. + clear drainage, no sinus tenderness. THROAT normal, no erythema NECK Supple, no adenopathy; HEART RRR with normal S1 and S2, LUNG clear to auscultation, No wheezing, rhonchi, rales. ABDOMEN bowel sounds normoactive, no bruits, soft, non-tender, non-distended, without organomegaly or palpable masses, no tenderness to palpation. Negative Estrada's, McBurney's, Rovsing's, no rebound, rigidity or guarding. BACK: Normal exam, no CVA TTP. EXTREMITIES Extremities normal, No deformities, No skin discoloration, No edema, and Normal pulses bilaterally. Mild TTP anterior shins DIONNE. Negative Homans' DIONNE. No edema, no calf TTP. NEURO Awake, alert and oriented x 3, Cranial nerves II-XII grossly intact, Reflexes symmetrical, Normal gait, and No involuntary motions. ASSESSMENT/PLAN: 1. Acute cough - ICD9: 786.2, ICD10: R05.1 (primary diagnosis) Suspicious for possible flu, start tamiflu while awaiting results, test today. Reviewed red flags and when to seek care sooner in ED Patient will have neighbor pick her up and take her home. - COVID AND INFLUENZA A/B AND RSV PCR, ROUTINE - OS (more content not included)... [facility] 08-12-2024 History of Present illness Narrative 08/12/2024 No chief complaint on file. SUBJECTIVE: This is a 84 year old that is here today for Complaint(s) of body aches x early yesterday morning. Notes chills. Has had rhinorrhea and occasional cough associated. Has not measured her temperature, but has chills. Describes pain across her upper back and into her shoulders, in her back, and notes leg pain DIONNE. Overall having body aches. Has tried tylenol/motrin. No calf edema. No recent travel. Has had chronic leg pain, and a recent US leg that was negative for DVT. Denies chest pain, SOB, nausea, vomiting, abdominal pain, dysuria, numbness/tingling, paralysis, dizziness. Has not taken her BP or other medications today. She has had intermittent, CORONEL,denies any CORONEL currently. Denies worst CORONEL of life. Has urinary frequency, but this is a chronic issue for patient. No dysuria, hematuria. No lfu shot this year. PAST MEDICAL HISTORY Diagnosis Date Coronary artery disease Diarrhea Generalized anxiety disorder Generalized osteoarthrosis, unspecified site lumbar and c-spine Hematochezia 03/31/2021 Incomplete bladder emptying 05/11/2005 Irritable bowel syndrome Pure hypercholesterolemia Thyroid disease Unspecified essential hypertension ALLERGIES Ditropan [Oxybutynin Chloride] and Lisinopril MEDICATIONS Current Outpatient Medications Medication Sig Cholecalciferol, Vitamin D3, (VITAMIN D-3) 50 mcg (2,000 unit) cap Take 1 capsule by mouth once daily. colestipol (COLESTID) 1 gram tablet Take 1 tablet by mouth two times a day. Dr. Zarate (Patient not taking: Reported on 06/24/2024) colestipol (COLESTID) 1 gram tablet Take 1 tablet by mouth two times a day. ketoconazole (NIZORAL) 2 % cream Apply 1 application to affected area two times a day. nystatin (MYCOSTATIN) cream Apply to affected area two times a day. Continue for 1 week after rash resolves docusate sodium (COLACE) 100 mg capsule Take 1 capsule by mouth two times a day as needed for constipation. acetaminophen (TYLENOL EXTRA STRENGTH) 500 mg tablet Take 1 tablet by mouth every 6 hours as needed for pain. Take this or the hydrocodone/acetaminophen every 6 hours as needed for pain ticagrelor (BRILINTA) 90 mg tablet Take 1 tablet by mouth two times a day. (Patient not taking: Reported on 12/07/2023) ezetimibe (ZETIA) 10 mg tablet Take 1 tablet by mouth once daily. levothyroxine (SYNTHROID) 75 mcg tablet Take 1 tablet by mouth daily before breakfast. esomeprazole (NEXIUM) 40 mg capsule Take 1 capsule by mouth daily before breakfast. trospium (SANCTURA) 20 mg tablet Take 1 tablet by mouth once daily. amLODIPine (NORVASC) 5 mg tablet Take 1 tablet by mouth once daily. metoprolol tartrate, short acting, (LOPRESSOR) 50 mg tablet Take 1 tablet by mouth three times daily. Aspirin 81 mg Tab Take 1 tablet by mouth once daily. Take with food. No current facility-administered medications for this visit. SOCIAL HISTORY Social History Tobacco Use Smoking status: Never Smokeless tobacco: Never Vaping Use Vaping status: Never Used Substance Use Topics Alcohol use: Yes Comment: rare glass of wine Drug use: No REVIEW OF SYSTEMS See HPI OBJECTIVE: There were no vitals taken for this visit. APPEARANCE alert, in no acute distress, well-hydrated, well nourished. Became nauseous and slightly lightheaded and vomited in the office. After laying down patient significantly improved. Denies nausea. Patient chilling with blankets in office visit. Speaking clearly and appropriate response to provider. EYES PERRLA, conjunctiva and sclera normal. EARS External ears normal, NOSE/SINUS Nares normal. Septum midline. Mucosa normal. + clear drainage, no sinus tenderness. THROAT normal, no erythema NECK Supple, no adenopathy; HEART RRR with normal S1 and S2, LUNG clear to auscultation, No wheezing, rhonchi, rales. ABDOMEN bowel sounds normoactive, no bruits, soft, non-tender, non-distended, without organomegaly or palpable masses, no tenderness to palpation. Negative Estrada's, McBurney's, Rovsing's, no rebound, rigidity or guarding. BACK: Normal exam, no CVA TTP. EXTREMITIES Extremities normal, No deformities, No skin discoloration, No edema, and Normal pulses bilaterally. Mild TTP anterior shins DIONNE. Negative Homans' DIONNE. No edema, no calf TTP. NEURO Awake, alert and oriented x 3, Cranial nerves II-XII grossly intact, Reflexes symmetrical, Normal gait, and No involuntary motions. ASSESSMENT/PLAN: 1. Acute cough - ICD9: 786.2, ICD10: R05.1 (primary diagnosis) Suspicious for possible flu, start tamiflu while awaiting results, test today. Reviewed red flags and when to seek care sooner in ED Patient will have neighbor pick her up and take her home. - COVID & INFLUENZA A/B & RSV PCR, ROUTINE - OSELTAMIVIR 75 MG CAPSULE No chest pain or SOB at visit today. Again Reviewed red flags and when to seek care in ED. 2. Body aches - ICD9: 780.96, ICD10: R52 As above - COVID & INFLUENZA A/B & RSV PCR, ROUTINE - OSELTAMIVIR 75 MG CAPSULE - ECG COMPLETE, NSR, 85 bmp. reviewed with supervising physician, Dr. West. . Cautioned patient on use of NSAIDs with history of CKD, advise tylenol. 3. Nausea - ICD9: 787.02, ICD10: R11.0 As above. Resolved. Will prescribe zofran to have on hand prn with tamiflu prescription and possible viral illness. - ONDANSETRON HCL 4 MG TABLET - ECG COMPLETE UA dip negative. Reviewed red flags and when to seek care sooner in ED. Spoke with daughter on the phone and neighbor. F/u in 3-5 days if not improving, sooner if worsening. Eric Lockett PA-C documented in this encounter [facility] 08-12-2024 Telephone encounter Note Pt reports she started having pain in her shoulders, arms, back last night and it continues today, and is all over her body. Reports she took tylenol but it didn't help. Pt doesn't know what is causing the pain- did not have a fall, did not have an injury. Asking for pain medication. Scheduled same day appt. [facility] 08-12-2024 Miscellaneous Notes Pt reports she started having pain in her shoulders, arms, back last night and it continues today, and is all over her body. Reports she took tylenol but it didn't help. Pt doesn't know what is causing the pain- did not have a fall, did not have an injury. Asking for pain medication. Scheduled same day appt. documented in this encounter [facility] 07-02-2024 History of Present illness Narrative Radiology Service Progress Note PATIENT NAME: Lisette Enamorado DATE OF SERVICE: July 02, 2024 TIME: 1:35 PM PATIENT IDENTITY VERIFICATION COMPLETED USING TWO (2) IDENTIFIERS: Name and Date of confirmed by patient verbally. FALL SCREENING: Has the patient had 2 falls in the last year or 1 fall with injury or currently using an Ambulatory Assistive Device (Walker, Cane, Wheelchair, Crutches, etc.)? No PATIENT GENDER DATA: Assigned female at . status: : No status: NO. PATIENT RELEVANT IMPLANT DATA REVIEWED: Not Applicable PATIENT PRESENTS WITH AN IMPLANTABLE OR ATTACHED DCS ENGINEER: No RADIOLOGY DEPARTMENT: Ultrasound PERIPHERAL IV DATA: Not applicable SIGNED BY: Mattie Benton RDMS July 02, 2024 1:35 PM documented in this encounter [facility] 07-02-2024 Note HNO ID: [id number] Author: MATTIE BENTON RDMS Service: ? Author Type: Harvesting Supervisor Type: Progress Notes Filed: 07/02/2024 13:35 Note Text: Radiology Service Progress Note PATIENT NAME: Lisette Enamorado DATE OF SERVICE: July 02, 2024 TIME: 1:35 PM PATIENT IDENTITY VERIFICATION COMPLETED USING TWO (2) IDENTIFIERS: Name and Date of confirmed by patient verbally. FALL SCREENING: Has the patient had 2 falls in the last year or 1 fall with injury or currently using an Ambulatory Assistive Device (Walker, Cane, Wheelchair, Crutches, etc.)? No PATIENT GENDER DATA: Assigned female at . status: : No status: NO. PATIENT RELEVANT IMPLANT DATA REVIEWED: Not Applicable PATIENT PRESENTS WITH AN IMPLANTABLE OR ATTACHED DCS ENGINEER: No RADIOLOGY DEPARTMENT: Ultrasound PERIPHERAL IV DATA: Not applicable SIGNED BY: Mattie Benton RDMS July 02, 2024 1:35 PM [facility] 06-24-2024 History of Present illness Narrative Radiology Service Progress Note PATIENT NAME: Lisette Enamorado DATE OF SERVICE: June 24, 2024 TIME: 11:59 AM PATIENT IDENTITY VERIFICATION COMPLETED USING TWO (2) IDENTIFIERS: Name and Date of confirmed by patient verbally. FALL SCREENING: Has the patient had 2 falls in the last year or 1 fall with injury or currently using an Ambulatory Assistive Device (Walker, Cane, Wheelchair, Crutches, etc.)? No PATIENT GENDER DATA: Assigned female at . status: : No status: NO. PATIENT RELEVANT IMPLANT DATA REVIEWED: Yes PATIENT PRESENTS WITH AN IMPLANTABLE OR ATTACHED DCS ENGINEER: No RADIOLOGY DEPARTMENT: General X-ray: Exam(s) Completed: Lower Extremity X-Ray(s): Tibia Fibula, Left PERIPHERAL IV DATA: Not applicable SIGNED BY: RT David(Chelsie) June 24, 2024 11:59 AM documented in this encounter [facility] 06-24-2024 Note HNO ID: [id number] Author: VIRAL PATTON RT(Chelsie) Service: ? Author Type: Harvesting Supervisor Type: Progress Notes Filed: 06/24/2024 12:17 Note Text: Radiology Service Progress Note PATIENT NAME: Lisette Enamorado DATE OF SERVICE: June 24, 2024 TIME: 11:59 AM PATIENT IDENTITY VERIFICATION COMPLETED USING TWO (2) IDENTIFIERS: Name and Date of confirmed by patient verbally. FALL SCREENING: Has the patient had 2 falls in the last year or 1 fall with injury or currently using an Ambulatory Assistive Device (Walker, Cane, Wheelchair, Crutches, etc.)? No PATIENT GENDER DATA: Assigned female at . status: : No status: NO. PATIENT RELEVANT IMPLANT DATA REVIEWED: Yes PATIENT PRESENTS WITH AN IMPLANTABLE OR ATTACHED DCS ENGINEER: No RADIOLOGY DEPARTMENT: General X-ray: Exam(s) Completed: Lower Extremity X-Ray(s): Tibia Fibula, Left PERIPHERAL IV DATA: Not applicable SIGNED BY: RT David(R) June 24, 2024 11:59 AM [facility] 06-24-2024 Note HNO ID: [id number] Author: ERIC LOCKETT PA-C Service: ? Author Type: Physician Sap Portal Architect Type: Progress Notes Filed: 06/26/2024 12:38 Note Text: 06/24/2024 Patient presents with: Musculoskeletal Problem: Left leg cramping/spasticity x 1 month SUBJECTIVE: This is a 84 year old that is here today for Complaint(s) of let leg pain and cramping, intermittent. Has had this for greater than a year. Tells me they occur more frequently at bedtime or middle of the night. States her leg will go stiff and in pain and has to rub it out. She does have a dull ache persisting in the left leg persisting on the anterior/lateral aspect of the byrne. No pain with walking. No swelling, redness, warmth. Has had these symptoms for over a year, but seems to be increasing in frequency. Always occurred at night before, and now has had this occur after sitting for a period during the day. She will have times where she has no symptoms. No recent travel, surgeries, non-smoker. Admits she drinks a lot of coffee, likely not drinking enough water. She has added gatorade and bananas to her diet recently, overall not helping. Denies any calf pain with walking. Denies chest pain, SOB, back pain, numbness/tingling, weakness, rash. Just started taking magnesium as well. No injury/trauma. PAST MEDICAL HISTORY Diagnosis Date Coronary artery disease Diarrhea Generalized anxiety disorder Generalized osteoarthrosis, unspecified site lumbar and c-spine Hematochezia 03/31/2021 Incomplete bladder emptying 05/11/2005 Irritable bowel syndrome Pure hypercholesterolemia Thyroid disease Unspecified essential hypertension ALLERGIES Ditropan [Oxybutynin Chloride] and Lisinopril MEDICATIONS Current Outpatient Medications Medication Sig colestipol (COLESTID) 1 gram tablet Take 1 tablet by mouth two times a day. ketoconazole (NIZORAL) 2 % cream Apply 1 application to affected area two times a day. nystatin (MYCOSTATIN) cream Apply to affected area two times a day. Continue for 1 week after rash resolves docusate sodium (COLACE) 100 mg capsule Take 1 capsule by mouth two times a day as needed for constipation. acetaminophen (TYLENOL EXTRA STRENGTH) 500 mg tablet Take 1 tablet by mouth every 6 hours as needed for pain. Take this or the hydrocodone/acetaminophen every 6 hours as needed for pain ezetimibe (ZETIA) 10 mg tablet Take 1 tablet by mouth once daily. levothyroxine (SYNTHROID) 75 mcg tablet Take 1 tablet by mouth daily before breakfast. esomeprazole (NEXIUM) 40 mg capsule Take 1 capsule by mouth daily before breakfast. amLODIPine (NORVASC) 5 mg tablet Take 1 tablet by mouth once daily. metoprolol tartrate, short acting, (LOPRESSOR) 50 mg tablet Take 1 tablet by mouth three times daily. cholecalciferol, vitamin D3, 4,000 unit cap Take 1 Dose by mouth once daily. Aspirin 81 mg Tab Take 1 tablet by mouth once daily. Take with food. colestipol (COLESTID) 1 gram tablet Take 1 tablet by mouth two times a day. Dr. Zarate (Patient not taking: Reported on 06/24/2024) ticagrelor (BRILINTA) 90 mg tablet Take 1 tablet by mouth two times a day. (Patient not taking: Reported on 12/07/2023) trospium (SANCTURA) 20 mg tablet Take 1 tablet by mouth once daily. cyclobenzaprine (FLEXERIL) 10 mg tablet Take 0.5 tablets by mouth three times daily as needed for muscle spasm or pain. (Patient not taking: Reported on 08/27/2023) No current facility-administered medications for this visit. SOCIAL HISTORY Social History Tobacco Use Smoking status: Never Smokeless tobacco: Never Vaping Use Vaping status: Never Used Substance Use Topics Alcohol use: Yes Comment: rare glass of wine Drug use: No REVIEW OF SYSTEMS See HPI OBJECTIVE: BP 136/74 Pulse 66 Resp 16 Wt 67.6 kg (149 lb) SpO2 95% BMI 27.25 kg/m? APPEARANCE Well appearing, alert, in no acute distress, well-hydrated, well nourished. HEART RRR with normal S1 and S2, no murmurs, no gallops, no JVD appreciated LUNG clear to auscultation EXTREMITIES No deformities, No skin discoloration, No edema, and Normal pulses bilaterally. Normal ROM ankles and knees DIONNE. No calf TTP, negative Homans' DIONNE. No erythema or warmth. + mild TTP anterior distal LE overlying fibula. ASSESSMENT/PLAN: 1. Left leg pain - ICD9: 729.5, ICD10: M79.605 (primary diagnosis) Encouraged increased hydration, limiting caffeine Gentle stretching exercises before bed Check labs, electrolytes XR today Consider US LE -no significant edema, calf pain - COMPREHENSIVE METABOLIC PANEL - IRON AND TIBC - FERRITIN - VITAMIN B12 - VITAMIN D 25 HYDROXY - MAGNESIUM - XR TIBIA FIBULA 2V AP/LAT LEFT - COMPLETE BLOOD COUNT AND DIFFERENTIAL 2. Leg cramp - ICD9: 729.82, ICD10: R25.2 As above - COMPREHENSIVE METABOLIC PANEL - IRON AND TIBC - FERRITIN - VITAMIN B12 - VITAMIN D 25 HYDROXY - MAGNESIUM - XR TIBIA FIBULA 2V AP/LAT LEFT - COMPLETE B (more content not included)... [facility] 06-24-2024 History of Present illness Narrative 06/24/2024 Patient presents with: Musculoskeletal Problem: Left leg cramping/spasticity x 1 month SUBJECTIVE: This is a 84 year old that is here today for Complaint(s) of let leg pain and cramping, intermittent. Has had this for greater than a year. Tells me they occur more frequently at bedtime or middle of the night. States her leg will go stiff and in pain and has to rub it out. She does have a dull ache persisting in the left leg persisting on the anterior/lateral aspect of the byrne. No pain with walking. No swelling, redness, warmth. Has had these symptoms for over a year, but seems to be increasing in frequency. Always occurred at night before, and now has had this occur after sitting for a period during the day. She will have times where she has no symptoms. No recent travel, surgeries, non-smoker. Admits she drinks a lot of coffee, likely not drinking enough water. She has added gatorade and bananas to her diet recently, overall not helping. Denies any calf pain with walking. Denies chest pain, SOB, back pain, numbness/tingling, weakness, rash. Just started taking magnesium as well. No injury/trauma. PAST MEDICAL HISTORY Diagnosis Date Coronary artery disease Diarrhea Generalized anxiety disorder Generalized osteoarthrosis, unspecified site lumbar and c-spine Hematochezia 03/31/2021 Incomplete bladder emptying 05/11/2005 Irritable bowel syndrome Pure hypercholesterolemia Thyroid disease Unspecified essential hypertension ALLERGIES Ditropan [Oxybutynin Chloride] and Lisinopril MEDICATIONS Current Outpatient Medications Medication Sig colestipol (COLESTID) 1 gram tablet Take 1 tablet by mouth two times a day. ketoconazole (NIZORAL) 2 % cream Apply 1 application to affected area two times a day. nystatin (MYCOSTATIN) cream Apply to affected area two times a day. Continue for 1 week after rash resolves docusate sodium (COLACE) 100 mg capsule Take 1 capsule by mouth two times a day as needed for constipation. acetaminophen (TYLENOL EXTRA STRENGTH) 500 mg tablet Take 1 tablet by mouth every 6 hours as needed for pain. Take this or the hydrocodone/acetaminophen every 6 hours as needed for pain ezetimibe (ZETIA) 10 mg tablet Take 1 tablet by mouth once daily. levothyroxine (SYNTHROID) 75 mcg tablet Take 1 tablet by mouth daily before breakfast. esomeprazole (NEXIUM) 40 mg capsule Take 1 capsule by mouth daily before breakfast. amLODIPine (NORVASC) 5 mg tablet Take 1 tablet by mouth once daily. metoprolol tartrate, short acting, (LOPRESSOR) 50 mg tablet Take 1 tablet by mouth three times daily. cholecalciferol, vitamin D3, 4,000 unit cap Take 1 Dose by mouth once daily. Aspirin 81 mg Tab Take 1 tablet by mouth once daily. Take with food. colestipol (COLESTID) 1 gram tablet Take 1 tablet by mouth two times a day. Dr. Zarate (Patient not taking: Reported on 06/24/2024) ticagrelor (BRILINTA) 90 mg tablet Take 1 tablet by mouth two times a day. (Patient not taking: Reported on 12/07/2023) trospium (SANCTURA) 20 mg tablet Take 1 tablet by mouth once daily. cyclobenzaprine (FLEXERIL) 10 mg tablet Take 0.5 tablets by mouth three times daily as needed for muscle spasm or pain. (Patient not taking: Reported on 08/27/2023) No current facility-administered medications for this visit. SOCIAL HISTORY Social History Tobacco Use Smoking status: Never Smokeless tobacco: Never Vaping Use Vaping status: Never Used Substance Use Topics Alcohol use: Yes Comment: rare glass of wine Drug use: No REVIEW OF SYSTEMS See HPI OBJECTIVE: BP 136/74 Pulse 66 Resp 16 Wt 67.6 kg (149 lb) SpO2 95% BMI 27.25 kg/m APPEARANCE Well appearing, alert, in no acute distress, well-hydrated, well nourished. HEART RRR with normal S1 and S2, no murmurs, no gallops, no JVD appreciated LUNG clear to auscultation EXTREMITIES No deformities, No skin discoloration, No edema, and Normal pulses bilaterally. Normal ROM ankles and knees DIONNE. No calf TTP, negative Homans' DIONNE. No erythema or warmth. + mild TTP anterior distal LE overlying fibula. ASSESSMENT/PLAN: 1. Left leg pain - ICD9: 729.5, ICD10: M79.605 (primary diagnosis) Encouraged increased hydration, limiting caffeine Gentle stretching exercises before bed Check labs, electrolytes XR today Consider US LE -no significant edema, calf pain - COMPREHENSIVE METABOLIC PANEL - IRON AND TIBC - FERRITIN - VITAMIN B12 - VITAMIN D 25 HYDROXY - MAGNESIUM - XR TIBIA FIBULA 2V AP/LAT LEFT - COMPLETE BLOOD COUNT AND DIFFERENTIAL 2. Leg cramp - ICD9: 729.82, ICD10: R25.2 As above - COMPREHENSIVE METABOLIC PANEL - IRON AND TIBC - FERRITIN - VITAMIN B12 - VITAMIN D 25 HYDROXY - MAGNESIUM - XR TIBIA FIBULA 2V AP/LAT LEFT - COMPLETE BLOOD COUNT AND DIFFERENTIAL Reviewed red flags and when to seek care sooner. The patient indicates understanding of these issues and agrees with the plan. Eric Lockett PA-C documented in this encounter [facility] 04-14-2024 Telephone encounter Note Previous script in March was sent to local pharmacy. This should have been [facility] to [facility]. Patient is going to need short term sent to [facility] to [facility]. The patient has been identified by name and date of : Yes Caregiver verified no other encounters exist for this prescription request: Yes Caregiver confirmed with patient/requestor that no other refills are due, in the near future, with this provider at this time: Yes The last office visit in the department: 12/07/2023 Does the patient have a future office visit with this provider/department: Yes 06/16/2024 Requested Prescriptions Pending Prescriptions Disp Refills colestipol (COLESTID) 1 gram tablet 14 tablet 0 Sig: Take 1 tablet by mouth two times a day. Dr. Zarate colestipol (COLESTID) 1 gram tablet 180 tablet 3 Sig: Take 1 tablet by mouth two times a day. Abby Tsai RN April 14, 2024 2:07 PM [facility] 04-14-2024 Miscellaneous Notes Previous script in March was sent to local pharmacy. This should have been sent to [facility]. Patient is going to need short term sent to [facility] to [facility]. The patient has been identified by name and date of : Yes Caregiver verified no other encounters exist for this prescription request: Yes Caregiver confirmed with patient/requestor that no other refills are due, in the near future, with this provider at this time: Yes The last office visit in the department: 12/07/2023 Does the patient have a future office visit with this provider/department: Yes 06/16/2024 Requested Prescriptions Pending Prescriptions Disp Refills colestipol (COLESTID) 1 gram tablet 14 tablet 0 Sig: Take 1 tablet by mouth two times a day. Dr. Zarate colestipol (COLESTID) 1 gram tablet 180 tablet 3 Sig: Take 1 tablet by mouth two times a day. Abby Tsai RN April 14, 2024 2:07 PM documented in this encounter [facility] 03-27-2024 Telephone encounter Note Patient reports she is having constant severe dizziness since yesterday morning. Movement makes it worse. Reports she holds onto things to get to the bathroom. Has not eaten since night. Vomited 3 times yesterday- then slept most of the day. Vomited her medication up yesterday. Protocol recommends ER now. Patient is alone. Advised to call 911 and make sure her door is unlocked. Patient agreeable. Reason for Disposition SEVERE dizziness (e.g., unable to stand, requires support to walk, feels like passing out now) Answer Assessment - Initial Assessment Questions 1. DESCRIPTION: Patient reports she was vomiting yesterday, vomited 3 times, and has been dizzy since woke up yesterday morning. Today is still dizziness and having upset stomach with nausea. Today drinking water, and able to keep it down. The dizziness has been constant since woke up yesterday. Reports she laid around, slept off and on, all day yesterday. Didn't eat all day yesterday. Hasn't eaten today. 2. LIGHTHEADED: Lightheaded / dizzy with movement, and when stands up. 3. VERTIGO: No. 4. SEVERITY: Severe. Dizziness is worse with movement. Patient is sitting in her chair right now. Patient is alone. 5. ONSET: Constant since yesterday morning. 6. AGGRAVATING FACTORS: Movement, change in position. 7. HEART RATE: Unable. 8. CAUSE: Reports she might have eaten some cheese that had mold, evening. 9. RECURRENT SYMPTOM: Reports she's had dizziness before somtime throughout her lifetime. 10. OTHER SYMPTOMS: No fever. No CP. Has upset stomach today, uncomfortable in stomach area. No CORONEL but head feels like theres pressure inside, ears are ringing. No diarrhea. Took 3 asa this morning. As soon as turns head- feels dizziness the most. 11. : No. Protocols used: Dizziness - [id number] [facility] 03-27-2024 Miscellaneous Notes Patient reports she is having constant severe dizziness since yesterday morning. Movement makes it worse. Reports she holds onto things to get to the bathroom. Has not eaten since night. Vomited 3 times yesterday- then slept most of the day. Vomited her medication up yesterday. Protocol recommends ER now. Patient is alone. Advised to call 911 and make sure her door is unlocked. Patient agreeable. Reason for Disposition SEVERE dizziness (e.g., unable to stand, requires support to walk, feels like passing out now) Answer Assessment - Initial Assessment Questions 1. DESCRIPTION: Patient reports she was vomiting yesterday, vomited 3 times, and has been dizzy since woke up yesterday morning. Today is still dizziness and having upset stomach with nausea. Today drinking water, and able to keep it down. The dizziness has been constant since woke up yesterday. Reports she laid around, slept off and on, all day yesterday. Didn't eat all day yesterday. Hasn't eaten today. 2. LIGHTHEADED: Lightheaded / dizzy with movement, and when stands up. 3. VERTIGO: No. 4. SEVERITY: Severe. Dizziness is worse with movement. Patient is sitting in her chair right now. Patient is alone. 5. ONSET: Constant since yesterday morning. 6. AGGRAVATING FACTORS: Movement, change in position. 7. HEART RATE: Unable. 8. CAUSE: Reports she might have eaten some cheese that had mold, evening. 9. RECURRENT SYMPTOM: Reports she's had dizziness before somtime throughout her lifetime. 10. OTHER SYMPTOMS: No fever. No CP. Has upset stomach today, uncomfortable in stomach area. No CORONEL but head feels like theres pressure inside, ears are ringing. No diarrhea. Took 3 asa this morning. As soon as turns head- feels dizziness the most. 11. : No. Protocols used: Dizziness - [id number] documented in this encounter [facility] 03-12-2024 Telephone encounter Note Already addressed in other encounter. Jillian Wray APRN.CNP [facility] 03-12-2024 Miscellaneous Notes Already addressed in other encounter. Jillian Wray APRN.CNP Patient states her current Colestipol medication lasts her only 45 days. She is requesting a 90 day supply. Asking if provider would send new script to [facility] mail order. Order pended. No call back needed to patient if provider agreeable to send Rx. Thank you. documented in this encounter [facility] 03-11-2024 Telephone encounter Note Patient states her current Colestipol medication lasts her only 45 days. She is requesting a 90 day supply. Asking if provider would send new script to [facility] mail order. Order pended. No call back needed to patient if provider agreeable to send Rx. Thank you. [facility] 03-11-2024 Note HNO ID: [id number] Author: ERIC LOCKETT PA-C Service: ? Author Type: Physician Sap Portal Architect Type: Progress Notes Filed: 03/20/2024 07:54 Note Text: 03/11/2024 Patient presents with: Follow Up: c/o fatigue and depression SUBJECTIVE: This is a 83 year old that is here today for follow up fatigue and depression. Patient tells me she is doing better today. Her abdominal pain has completely resolved. 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 Her . They used to travel together. Her friends are mostly all still with living spouses and travel together. Her children both live out of state. She stays active with a park her and her took over, but it's getting ot be a lot of work. She goes to [employer] and other groups. However, she still wishes she had companionship and someone to help with decisions. Denies any SI/HI, plan, intent, attempt. She does not feel she needs medication at this time. PAST MEDICAL HISTORY Diagnosis Date Coronary artery disease Diarrhea Generalized anxiety disorder Generalized osteoarthrosis, unspecified site lumbar and c-spine Hematochezia 03/31/2021 Incomplete bladder emptying 05/11/2005 Irritable bowel syndrome Pure hypercholesterolemia Thyroid disease Unspecified essential hypertension ALLERGIES Ditropan [Oxybutynin Chloride] and Lisinopril MEDICATIONS Current Outpatient Medications Medication Sig ketoconazole (NIZORAL) 2 % cream Apply 1 application to affected area two times a day. colestipol (COLESTID) 1 gram tablet Take 1 tablet by mouth two times a day. Dr. Zarate colestipol (COLESTID) 1 gram tablet Take 1 tablet by mouth two times a day. Dr. Zarate nystatin (MYCOSTATIN) cream Apply to affected area two times a day. Continue for 1 week after rash resolves docusate sodium (COLACE) 100 mg capsule Take 1 capsule by mouth two times a day as needed for constipation. acetaminophen (TYLENOL EXTRA STRENGTH) 500 mg tablet Take 1 tablet by mouth every 6 hours as needed for pain. Take this or the hydrocodone/acetaminophen every 6 hours as needed for pain ticagrelor (BRILINTA) 90 mg tablet Take 1 tablet by mouth two times a day. (Patient not taking: Reported on 12/07/2023) ezetimibe (ZETIA) 10 mg tablet Take 1 tablet by mouth once daily. levothyroxine (SYNTHROID) 75 mcg tablet Take 1 tablet by mouth daily before breakfast. esomeprazole (NEXIUM) 40 mg capsule Take 1 capsule by mouth daily before breakfast. trospium (SANCTURA) 20 mg tablet Take 1 tablet by mouth once daily. amLODIPine (NORVASC) 5 mg tablet Take 1 tablet by mouth once daily. metoprolol tartrate, short acting, (LOPRESSOR) 50 mg tablet Take 1 tablet by mouth three times daily. cyclobenzaprine (FLEXERIL) 10 mg tablet Take 0.5 tablets by mouth three times daily as needed for muscle spasm or pain. (Patient not taking: Reported on 08/27/2023) cholecalciferol, vitamin D3, 4,000 unit cap Take 1 Dose by mouth once daily. Aspirin 81 mg Tab Take 1 tablet by mouth once daily. Take with food. No current facility-administered medications for this visit. SOCIAL HISTORY Social History Tobacco Use Smoking status: Never Smokeless tobacco: Never Vaping Use Vaping status: Never Used Substance Use Topics Alcohol use: Yes Comment: rare glass of wine Drug use: No REVIEW OF SYSTEMS See HPI OBJECTIVE: BP 120/70 (BP Site: Left Arm, BP Position: Sitting, BP Cuff Size: Regular Adult) Pulse 66 Temp 36.6 ?C (97.8 ?F) Resp 12 Ht 157.5 cm (5' 2) Wt 65.3 kg (144 lb) SpO2 97% BMI 26.34 kg/m? APPEARANCE Well appearing, alert, in no acute distress, well-hydrated, well nourished. ABDOMEN soft, non-tender, non-distended, without organomegaly or palpable masses, no tenderness to palpation ASSESSMENT/PLAN: 1. Situational depression - ICD9: 309.0, ICD10: F43.21 Discussed medication options. Will wait at this time She will continue to stay active and involved. Discussed counseling, prefers to wait. I spent 35 minutes in this visit with patient. I spent 35 minutes in the visit, with more than 50% of the total [id number] time of the visit in counseling / coordination of care. The patient indicates understanding of these issues and agrees with the plan. Reviewed red flags and when to seek care sooner. Eric Lockett PA-C [facility] 03-11-2024 History of Present illness Narrative 03/11/2024 Patient presents with: Follow Up: c/o fatigue and depression SUBJECTIVE: This is a 83 year old that is here today for follow up fatigue and depression. Patient tells me she is doing better today. Her abdominal pain has completely resolved. 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 Her . They used to travel together. Her friends are mostly all still with living spouses and travel together. Her children both live out of state. She stays active with a park her and her took over, but it's getting ot be a lot of work. She goes to [employer] and other groups. However, she still wishes she had companionship and someone to help with decisions. Denies any SI/HI, plan, intent, attempt. She does not feel she needs medication at this time. PAST MEDICAL HISTORY Diagnosis Date Coronary artery disease Diarrhea Generalized anxiety disorder Generalized osteoarthrosis, unspecified site lumbar and c-spine Hematochezia 03/31/2021 Incomplete bladder emptying 05/11/2005 Irritable bowel syndrome Pure hypercholesterolemia Thyroid disease Unspecified essential hypertension ALLERGIES Ditropan [Oxybutynin Chloride] and Lisinopril MEDICATIONS Current Outpatient Medications Medication Sig ketoconazole (NIZORAL) 2 % cream Apply 1 application to affected area two times a day. colestipol (COLESTID) 1 gram tablet Take 1 tablet by mouth two times a day. Dr. Zarate colestipol (COLESTID) 1 gram tablet Take 1 tablet by mouth two times a day. Dr. Zarate nystatin (MYCOSTATIN) cream Apply to affected area two times a day. Continue for 1 week after rash resolves docusate sodium (COLACE) 100 mg capsule Take 1 capsule by mouth two times a day as needed for constipation. acetaminophen (TYLENOL EXTRA STRENGTH) 500 mg tablet Take 1 tablet by mouth every 6 hours as needed for pain. Take this or the hydrocodone/acetaminophen every 6 hours as needed for pain ticagrelor (BRILINTA) 90 mg tablet Take 1 tablet by mouth two times a day. (Patient not taking: Reported on 12/07/2023) ezetimibe (ZETIA) 10 mg tablet Take 1 tablet by mouth once daily. levothyroxine (SYNTHROID) 75 mcg tablet Take 1 tablet by mouth daily before breakfast. esomeprazole (NEXIUM) 40 mg capsule Take 1 capsule by mouth daily before breakfast. trospium (SANCTURA) 20 mg tablet Take 1 tablet by mouth once daily. amLODIPine (NORVASC) 5 mg tablet Take 1 tablet by mouth once daily. metoprolol tartrate, short acting, (LOPRESSOR) 50 mg tablet Take 1 tablet by mouth three times daily. cyclobenzaprine (FLEXERIL) 10 mg tablet Take 0.5 tablets by mouth three times daily as needed for muscle spasm or pain. (Patient not taking: Reported on 08/27/2023) cholecalciferol, vitamin D3, 4,000 unit cap Take 1 Dose by mouth once daily. Aspirin 81 mg Tab Take 1 tablet by mouth once daily. Take with food. No current facility-administered medications for this visit. SOCIAL HISTORY Social History Tobacco Use Smoking status: Never Smokeless tobacco: Never Vaping Use Vaping status: Never Used Substance Use Topics Alcohol use: Yes Comment: rare glass of wine Drug use: No REVIEW OF SYSTEMS See HPI OBJECTIVE: BP 120/70 (BP Site: Left Arm, BP Position: Sitting, BP Cuff Size: Regular Adult) Pulse 66 Temp 36.6 C (97.8 F) Resp 12 Ht 157.5 cm (5' 2) Wt 65.3 kg (144 lb) SpO2 97% BMI 26.34 kg/m APPEARANCE Well appearing, alert, in no acute distress, well-hydrated, well nourished. ABDOMEN soft, non-tender, non-distended, without organomegaly or palpable masses, no tenderness to palpation ASSESSMENT/PLAN: 1. Situational depression - ICD9: 309.0, ICD10: F43.21 Discussed medication options. Will wait at this time She will continue to stay active and involved. Discussed counseling, prefers to wait. I spent 35 minutes in this visit with patient. I spent 35 minutes in the visit, with more than 50% of the total [id number] time of the visit in counseling / coordination of care. The patient indicates understanding of these issues and agrees with the plan. Reviewed red flags and when to seek care sooner. Eric Lockett PA-C documented in this encounter [facility] 03-11-2024 Telephone encounter Note I spoke with patient yesterday when sthe stopped into the office. She reported taking two a day until recently when she was running out because her prescription wouldn't last the 90 days. Pt is aware that she needs to take BID; but she needs correct quantity to do so. Nisreen Anand MA [facility] 03-11-2024 Miscellaneous Notes I spoke with patient yesterday when sthe stopped into the office. She reported taking two a day until recently when she was running out because her prescription wouldn't last the 90 days. Pt is aware that she needs to take BID; but she needs correct quantity to do so. Nisreen Anand MA Please verify patient with how she is taking this. She got 90 all last year so concerned she is only taking once a day. Thank you Jillian Wray APRN.CNP Colestipol 1 g tablet 1 tab BID #90 was sent to [facility] on 01/11/24. Sig does not match quantity. Please send corrected order that is pended. Nisreen Anand MA documented in this encounter [facility] 03-10-2024 Telephone encounter Note Please verify patient with how she is taking this. She got 90 all last year so concerned she is only taking once a day. Thank you Jillian Wray APRN.CNP [facility] 03-10-2024 Telephone encounter Note Colestipol 1 g tablet 1 tab BID #90 was sent to [facility] on 01/11/24. Sig does not match quantity. Please send corrected order that is pended. Nisreen Anand MA [facility] 03-05-2024 Note HNO ID: [id number] Author: CHAD JARA MA Service: ? 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 Sent mychart message. AD already on file. 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 Sent Eloquahart message. AD already on file. AWV was cx for 02/28/24 Reason for Outreach Care Gap/HCC or Scheduling Wellness Visits Care Gaps due: Medicare Annual Wellness Visit Flu Vaccine Patient Contacted: Unable or unnecessary to reach patient: Left message [employer] message sent HCC related Navigation Signature: Chad Jara MA March 05, 2024 2:41 PM documented in this encounter [facility] 03-05-2024 Note Patient Outreach (ARNOLDO GALEANOAV) LISETTE ENAMORADO ([id number]) 1940 F Date Time Provider Department 03/05/24 MONSKE, CHAD A NETNAV During your visit today, we recorded the following information about you: Chad Jara MA 03/05/2024 2:43 PM Signed POPULATION HEALTH NAVIGATION OUTREACH Action/FYI Patient is on [facility] CURRENT ROSTER Work[employer] list for below and needs appointment to address: Depression Screening Advance Directive Discussion LDL Cholesterol Covid-19 Vaccine( season) Influenza Vaccine(1) No results found for: HBA1C Patient due for: Medicare Annual Wellness Visit Flu Vaccine Advance Directives [employer] Active: Yes Left message for patient to call back. Sent Qraved message. AD already on file. AWV was cx for 02/28/24 Reason for Outreach Care Gap/HCC or Scheduling Wellness Visits Care Gaps due: Medicare Annual Wellness Visit Flu Vaccine Patient Contacted: Unable or unnecessary to reach patient: Left message [employer] message sent HCC related Navigation Signature: Chad Jara MA March 05, 2024 2:41 PM Allergies As of Date: 03/05/2024 Noted Allergy Reaction DITROPAN (OXYBUTYNIN CHLORIDE) 02/24/2019 8 - GI Upset LISINOPRIL 06/30/2011 3 - Cough Date Reviewed: 03/04/2024 Reviewed by: Kirit Matamoros LPN - Fully Assessed Reason for Visit: Population Health Navigation Outreach [3910] Cmt: Alyssa Pickens Clarissa Das PCSA Prescriptions as of 03/05/2024 - iv contrast (will be provided with radiology test) CT ABD/PEL -Inject, intravenously, once for 1 dose.No IV access, insert saline lock prior to the beginning of sedation, infusion, injection of imaging exam. Discontinue saline lock post exam. If Pt. has a central line or IVAD, may access for administration according to line specific nursing protocol. Once exam is complete flush line and de-access according to line specific nursing protocol in the CT contrast administration guidelines link. - enteric contrast (will be provided with radiology test) For CT ABD/PEL W IVCON Routine order Administer, As Directed One Time Only, via Oral, Rectal, both Oral and Rectal, Enteric Tube, Stoma or Indwelling Catheter, Enteric Contrast as designated per enteric contrast guidelines - ketoconazole (NIZORAL) 2 % cream Apply 1 application to affected area two times a day. - colestipol (COLESTID) 1 gram tablet Take 1 tablet by mouth two times a day. Dr. Zarate - colestipol (COLESTID) 1 gram tablet Take 1 tablet by mouth two times a day. Dr. Zarate - nystatin (MYCOSTATIN) cream Apply to affected area two times a day. Continue for 1 week after rash resolves - docusate sodium (COLACE) 100 mg capsule Take 1 capsule by mouth two times a day as needed for constipation. - acetaminophen (TYLENOL EXTRA STRENGTH) 500 mg tablet Take 1 tablet by mouth every 6 hours as needed for pain. Take this or the hydrocodone/acetaminophen every 6 hours as needed for pain - ticagrelor (BRILINTA) 90 mg tablet Take 1 tablet by mouth two times a day. - ezetimibe (ZETIA) 10 mg tablet Take 1 tablet by mouth once daily. - levothyroxine (SYNTHROID) 75 mcg tablet Take 1 tablet by mouth daily before breakfast. - esomeprazole (NEXIUM) 40 mg capsule Take 1 capsule by mouth daily before breakfast. - trospium (SANCTURA) 20 mg tablet Take 1 tablet by mouth once daily. - amLODIPine (NORVASC) 5 mg tablet Take 1 tablet by mouth once daily. - metoprolol tartrate, short acting, (LOPRESSOR) 50 mg tablet Take 1 tablet by mouth three times daily. - cyclobenzaprine (FLEXERIL) 10 mg tablet Take 0.5 tablets by mouth three times daily as needed for muscle spasm or pain. - cholecalciferol, vitamin D3, 4,000 unit cap Take 1 Dose by mouth once daily. - Aspirin 81 mg Tab Take 1 tablet by mouth once daily. Take with food. Problem List As Of Date 03/05/2024 Noted Resolved INCOMPLETE BLADDER EMPTYING [R33.9] 05/11/2005 Essential hypertension [I10] History of IBS [Z87.19] GENERALIZED ANXIETY DIS [F41.1] GENERAL OSTEOARTHROSIS [M15.9] RETENTION OF URINE UNSPEC [R33.9] 08/22/2005 CERVICALGIA [M54.2] 07/24/2006 DIARRHEA NOS [R19.7] 06/16/2008 DIVERTICULOSIS OF COLON W/O BLEED [K57.30] 06/16/2008 Bilateral carotid artery stenosis [I65.23] 06/10/2009 Coronary artery disease involving [place]*01/20/2010 Unspecified Myalgia and Myositis [[id number]] 02/28/2010 Sleep apnea [G47.30] 10/18/2011 Onychia and paronychia of toe [L03.039] 02/20/2012 Lumbago [M54.50] 04/30/2012 Bursitis of left shoulder [M75.52] 08/22/2012 Right cervical radiculopathy [M54.12] 08/22/2012 Right carpal tunnel syndrome [G56.01] 08/22/2012 Hyperlipidemia [E78.5] 09/17/2012 Hypothyroidism [E03.9] 09/17/2012 Sensorineural hearing loss, bilateral [H90.3] 02/19/2015 Otalgia [H92.09] 02/19/2015 Bilateral impacted cerumen [H61.23] (more content not included)... [facility] 03-04-2024 Note HNO ID: [id number] Author: ERIC LOCKETT PA-C Service: ? Author Type: Physician Sap Portal Architect Type: Progress Notes Filed: 03/05/2024 09:13 Note Text: 03/04/2024 Patient presents with: Same Day Appointment: cramps prior to bowel movements, stool black in past SUBJECTIVE: This is a 83 year old that is here today for Complaint(s) of cramping prior to BMs in the lower abdomen , mostly LLQ. States she had this 1 year ago, diagnosed with colitis per patient, but it resolved. Had black stools in past. Notes she has small, ball like BM, constipated. No blood in stools or black and tarry stools. Pain only comes right before a BM. Overall feels slightly uncomfortable. Last BM today, small, hard. Has metamucil but hasn't been using. No previous history of diverticular disease. Last colonoscopy 2 years ago, normal. Denies fever/chills, vomiting, dysuria, hematuria, chest pain, SOB, cough. Also mentions a rash on lower abdomen in skin fold and groin region that is itchy. PAST MEDICAL HISTORY Diagnosis Date Coronary artery disease Diarrhea Generalized anxiety disorder Generalized osteoarthrosis, unspecified site lumbar and c-spine Hematochezia 03/31/2021 Incomplete bladder emptying 05/11/2005 Irritable bowel syndrome Pure hypercholesterolemia Thyroid disease Unspecified essential hypertension ALLERGIES Ditropan [Oxybutynin Chloride] and Lisinopril MEDICATIONS Current Outpatient Medications Medication Sig colestipol (COLESTID) 1 gram tablet Take 1 tablet by mouth two times a day. Dr. Zarate colestipol (COLESTID) 1 gram tablet Take 1 tablet by mouth two times a day. Dr. Zarate nystatin (MYCOSTATIN) cream Apply to affected area two times a day. Continue for 1 week after rash resolves docusate sodium (COLACE) 100 mg capsule Take 1 capsule by mouth two times a day as needed for constipation. acetaminophen (TYLENOL EXTRA STRENGTH) 500 mg tablet Take 1 tablet by mouth every 6 hours as needed for pain. Take this or the hydrocodone/acetaminophen every 6 hours as needed for pain ticagrelor (BRILINTA) 90 mg tablet Take 1 tablet by mouth two times a day. (Patient not taking: Reported on 12/07/2023) ezetimibe (ZETIA) 10 mg tablet Take 1 tablet by mouth once daily. levothyroxine (SYNTHROID) 75 mcg tablet Take 1 tablet by mouth daily before breakfast. esomeprazole (NEXIUM) 40 mg capsule Take 1 capsule by mouth daily before breakfast. trospium (SANCTURA) 20 mg tablet Take 1 tablet by mouth once daily. amLODIPine (NORVASC) 5 mg tablet Take 1 tablet by mouth once daily. metoprolol tartrate, short acting, (LOPRESSOR) 50 mg tablet Take 1 tablet by mouth three times daily. cyclobenzaprine (FLEXERIL) 10 mg tablet Take 0.5 tablets by mouth three times daily as needed for muscle spasm or pain. (Patient not taking: Reported on 08/27/2023) cholecalciferol, vitamin D3, 4,000 unit cap Take 1 Dose by mouth once daily. Aspirin 81 mg Tab Take 1 tablet by mouth once daily. Take with food. No current facility-administered medications for this visit. SOCIAL HISTORY Social History Tobacco Use Smoking status: Never Smokeless tobacco: Never Vaping Use Vaping status: Never Used Substance Use Topics Alcohol use: Yes Comment: rare glass of wine Drug use: No REVIEW OF SYSTEMS See HPI OBJECTIVE: BP 136/62 (BP Site: Left Arm, BP Position: Sitting, BP Cuff Size: Regular Adult) Pulse 87 Resp 14 Ht 157.5 cm (5' 2) Wt 66.2 kg (146 lb) SpO2 98% BMI 26.70 kg/m? APPEARANCE Well appearing, alert, in no acute distress, well-hydrated, well nourished. NECK Supple, no adenopathy; thyroid symmetric, normal size, no bruits HEART RRR with normal S1 and S2, no murmurs, no gallops, no JVD appreciated LUNG clear to auscultation ABDOMEN bowel sounds normoactive, no bruits, soft, non-tender, non-distended, without organomegaly or palpable masses, no tenderness to palpation BACK: Normal exam Skin: red well demarcated eruption with numerous pinpoint satellite papules/pustules lower abdomen waistline. ASSESSMENT/PLAN: 1. Acute constipation - ICD9: 564.00, ICD10: K59.00 (primary diagnosis) Suspect likely constipation Trial of metamucil daily with plenty of water Colace daily Miralax until stools are soft. 2. Left lower quadrant abdominal pain - ICD9: 789.04, ICD10: R10.32 Suspect constipation, consider diverticular disease-ordered CT, patient prefers to try constipation treatment for the next couple days first. I think this is reasonable. If worsening -schedule CT same day. Trial of increased liquids, bland/liquid diet. Reviewed red flags and when to seek care sooner in ED including fever >100, worsening pain, vomiting. - CT ABD/PEL W IVCON - CREATININE BLD Recheck 3-4 days if not improving. 3. Skin rash - ICD9: 782.1, ICD10: R21 Suspect intertrigo. - KETOCONAZOLE 2 % TOPICAL CREAM The patient indicates understanding of these issues and agrees with the (more content not included)... [facility] 03-04-2024 History of Present illness Narrative 03/04/2024 Patient presents with: Same Day Appointment: cramps prior to bowel movements, stool black in past SUBJECTIVE: This is a 83 year old that is here today for Complaint(s) of cramping prior to BMs in the lower abdomen , mostly LLQ. States she had this 1 year ago, diagnosed with colitis per patient, but it resolved. Had black stools in past. Notes she has small, ball like BM, constipated. No blood in stools or black and tarry stools. Pain only comes right before a BM. Overall feels slightly uncomfortable. Last BM today, small, hard. Has metamucil but hasn't been using. No previous history of diverticular disease. Last colonoscopy 2 years ago, normal. Denies fever/chills, vomiting, dysuria, hematuria, chest pain, SOB, cough. Also mentions a rash on lower abdomen in skin fold and groin region that is itchy. PAST MEDICAL HISTORY Diagnosis Date Coronary artery disease Diarrhea Generalized anxiety disorder Generalized osteoarthrosis, unspecified site lumbar and c-spine Hematochezia 03/31/2021 Incomplete bladder emptying 05/11/2005 Irritable bowel syndrome Pure hypercholesterolemia Thyroid disease Unspecified essential hypertension ALLERGIES Ditropan [Oxybutynin Chloride] and Lisinopril MEDICATIONS Current Outpatient Medications Medication Sig colestipol (COLESTID) 1 gram tablet Take 1 tablet by mouth two times a day. Dr. Zarate colestipol (COLESTID) 1 gram tablet Take 1 tablet by mouth two times a day. Dr. Zarate nystatin (MYCOSTATIN) cream Apply to affected area two times a day. Continue for 1 week after rash resolves docusate sodium (COLACE) 100 mg capsule Take 1 capsule by mouth two times a day as needed for constipation. acetaminophen (TYLENOL EXTRA STRENGTH) 500 mg tablet Take 1 tablet by mouth every 6 hours as needed for pain. Take this or the hydrocodone/acetaminophen every 6 hours as needed for pain ticagrelor (BRILINTA) 90 mg tablet Take 1 tablet by mouth two times a day. (Patient not taking: Reported on 12/07/2023) ezetimibe (ZETIA) 10 mg tablet Take 1 tablet by mouth once daily. levothyroxine (SYNTHROID) 75 mcg tablet Take 1 tablet by mouth daily before breakfast. esomeprazole (NEXIUM) 40 mg capsule Take 1 capsule by mouth daily before breakfast. trospium (SANCTURA) 20 mg tablet Take 1 tablet by mouth once daily. amLODIPine (NORVASC) 5 mg tablet Take 1 tablet by mouth once daily. metoprolol tartrate, short acting, (LOPRESSOR) 50 mg tablet Take 1 tablet by mouth three times daily. cyclobenzaprine (FLEXERIL) 10 mg tablet Take 0.5 tablets by mouth three times daily as needed for muscle spasm or pain. (Patient not taking: Reported on 08/27/2023) cholecalciferol, vitamin D3, 4,000 unit cap Take 1 Dose by mouth once daily. Aspirin 81 mg Tab Take 1 tablet by mouth once daily. Take with food. No current facility-administered medications for this visit. SOCIAL HISTORY Social History Tobacco Use Smoking status: Never Smokeless tobacco: Never Vaping Use Vaping status: Never Used Substance Use Topics Alcohol use: Yes Comment: rare glass of wine Drug use: No REVIEW OF SYSTEMS See HPI OBJECTIVE: BP 136/62 (BP Site: Left Arm, BP Position: Sitting, BP Cuff Size: Regular Adult) Pulse 87 Resp 14 Ht 157.5 cm (5' 2) Wt 66.2 kg (146 lb) SpO2 98% BMI 26.70 kg/m APPEARANCE Well appearing, alert, in no acute distress, well-hydrated, well nourished. NECK Supple, no adenopathy; thyroid symmetric, normal size, no bruits HEART RRR with normal S1 and S2, no murmurs, no gallops, no JVD appreciated LUNG clear to auscultation ABDOMEN bowel sounds normoactive, no bruits, soft, non-tender, non-distended, without organomegaly or palpable masses, no tenderness to palpation BACK: Normal exam Skin: red well demarcated eruption with numerous pinpoint satellite papules/pustules lower abdomen waistline. ASSESSMENT/PLAN: 1. Acute constipation - ICD9: 564.00, ICD10: K59.00 (primary diagnosis) Suspect likely constipation Trial of metamucil daily with plenty of water Colace daily Miralax until stools are soft. 2. Left lower quadrant abdominal pain - ICD9: 789.04, ICD10: R10.32 Suspect constipation, consider diverticular disease-ordered CT, patient prefers to try constipation treatment for the next couple days first. I think this is reasonable. If worsening -schedule CT same day. Trial of increased liquids, bland/liquid diet. Reviewed red flags and when to seek care sooner in ED including fever >100, worsening pain, vomiting. - CT ABD/PEL W IVCON - CREATININE BLD Recheck 3-4 days if not improving. 3. Skin rash - ICD9: 782.1, ICD10: R21 Suspect intertrigo. - KETOCONAZOLE 2 % TOPICAL CREAM The patient indicates understanding of these issues and agrees with the plan. Reviewed red flags and when to seek care sooner. Eric Lockett PA-C documented in this encounter [facility] 02-28-2024 Note HNO ID: [id number] Author: YELENA WOODRUFF, ? Service: ? Author Type: Patient Assistant Drafter Type: Progress Notes Filed: 02/28/2024 13:09 Note Text: POPULATION HEALTH NAVIGATION OUTREACH Action/FYI Left message and my chart sent to schedule DXA Reason for Outreach Care Gap/HCC or Scheduling Wellness Visits Care Gaps due: N/A Patient Contacted: Unable or unnecessary to reach patient: Left message MyChart message sent Navigation Signature: Yelena Woodruff Population Health Navigator February 28, 2024 1:08 PM [facility] 02-28-2024 History of Present illness Narrative POPULATION HEALTH NAVIGATION OUTREACH Action/FYI Left message and my chart sent to schedule DXA Reason for Outreach Care Gap/HCC or Scheduling Wellness Visits Care Gaps due: N/A Patient Contacted: Unable or unnecessary to reach patient: Left message MyChart message sent Navigation Signature: Yelena Woodruff Population Health Navigator February 28, 2024 1:08 PM POPULATION HEALTH NAVIGATION OUTREACH Action/FYI Hedis measure Reason for Outreach Care Gap/HCC or Scheduling Wellness Visits Care Gaps due: N/A Patient Contacted: Navigation Signature: Yelena Woodruff Population Health Navigator February 28, 2024 7:04 AM documented in this encounter [facility] 02-28-2024 Note HNO ID: [id number] Author: YELENA WOODRUFF, ? Service: ? Author Type: Patient Assistant Drafter Type: Progress Notes Filed: 02/28/2024 12:57 Note Text: POPULATION HEALTH NAVIGATION OUTREACH Action/FYI Hedis measure Reason for Outreach Care Gap/HCC or Scheduling Wellness Visits Care Gaps due: N/A Patient Contacted: Navigation Signature: Yelena Woodruff Population Health Navigator February 28, 2024 7:04 AM [facility] 02-28-2024 Note Patient Outreach (ARNOLDO TNAV) LISETTE ENAMORADO ([id number]) 1940 F Date Time Provider Department 02/28/24 YELENA WOODRUFF During your visit today, we recorded the following information about you: Yelena Woodruff 02/28/2024 12:57 PM Signed POPULATION HEALTH NAVIGATION OUTREACH Action/FYI Hedis measure Reason for Outreach Care Gap/HCC or Scheduling Wellness Visits Care Gaps due: N/A Patient Contacted: Navigation Signature: Yelena Woodruff Population Health Navigator February 28, 2024 7:04 AM Yelena Woodruff 02/28/2024 1:09 PM Signed POPULATION HEALTH NAVIGATION OUTREACH Action/FYI Left message and my chart sent to schedule DXA Reason for Outreach Care Gap/HCC or Scheduling Wellness Visits Care Gaps due: N/A Patient Contacted: Unable or unnecessary to reach patient: Left message [employer] message sent Navigation Signature: Yelena Woodruff Population Health Navigator February 28, 2024 1:08 PM Allergies As of Date: 02/28/2024 Noted Allergy Reaction DITROPAN (OXYBUTYNIN CHLORIDE) 02/24/2019 8 - GI Upset LISINOPRIL 06/30/2011 3 - Cough Date Reviewed: 12/07/2023 Reviewed by: Morenita Shepard LPN - Fully Assessed Reason for Visit: Population Health Navigation Outreach [3910] Cmt: omw Primary Visit Diagnosis:Screening for osteoporosis [Z13.820] Order(s):DXA-AXIAL SKELETON [[id number]] Order #: [id number] FUTURE BD DXA TRABECULAR BONE SCORE (TBS) [[id number]] Order #: [id number] FUTURE Prescriptions as of 02/28/2024 - colestipol (COLESTID) 1 gram tablet Take 1 tablet by mouth two times a day. Dr. Zarate - colestipol (COLESTID) 1 gram tablet Take 1 tablet by mouth two times a day. Dr. Zarate - nystatin (MYCOSTATIN) cream Apply to affected area two times a day. Continue for 1 week after rash resolves - docusate sodium (COLACE) 100 mg capsule Take 1 capsule by mouth two times a day as needed for constipation. - acetaminophen (TYLENOL EXTRA STRENGTH) 500 mg tablet Take 1 tablet by mouth every 6 hours as needed for pain. Take this or the hydrocodone/acetaminophen every 6 hours as needed for pain - ticagrelor (BRILINTA) 90 mg tablet Take 1 tablet by mouth two times a day. - ezetimibe (ZETIA) 10 mg tablet Take 1 tablet by mouth once daily. - levothyroxine (SYNTHROID) 75 mcg tablet Take 1 tablet by mouth daily before breakfast. - esomeprazole (NEXIUM) 40 mg capsule Take 1 capsule by mouth daily before breakfast. - trospium (SANCTURA) 20 mg tablet Take 1 tablet by mouth once daily. - amLODIPine (NORVASC) 5 mg tablet Take 1 tablet by mouth once daily. - metoprolol tartrate, short acting, (LOPRESSOR) 50 mg tablet Take 1 tablet by mouth three times daily. - cyclobenzaprine (FLEXERIL) 10 mg tablet Take 0.5 tablets by mouth three times daily as needed for muscle spasm or pain. - cholecalciferol, vitamin D3, 4,000 unit cap Take 1 Dose by mouth once daily. - Aspirin 81 mg Tab Take 1 tablet by mouth once daily. Take with food. Problem List As Of Date 02/28/2024 Noted Resolved INCOMPLETE BLADDER EMPTYING [R33.9] 05/11/2005 Essential hypertension [I10] History of IBS [Z87.19] GENERALIZED ANXIETY DIS [F41.1] GENERAL OSTEOARTHROSIS [M15.9] RETENTION OF URINE UNSPEC [R33.9] 08/22/2005 CERVICALGIA [M54.2] 07/24/2006 DIARRHEA NOS [R19.7] 06/16/2008 DIVERTICULOSIS OF COLON W/O BLEED [K57.30] 06/16/2008 Bilateral carotid artery stenosis [I65.23] 06/10/2009 Coronary artery disease involving [place]*01/20/2010 Unspecified Myalgia and Myositis [[id number]] 02/28/2010 Sleep apnea [G47.30] 10/18/2011 Onychia and [...] with chronic kidney*10/26/2021 Hiatal hernia [K44.9] 07/25/2022 Lung nodule [R91.1] 02/01/2023 Incontinence of feces [R15.9] 03/20/2023 Encounter Status:Closed by YELENA WOODRUFF on 02/28/24 [facility] 01-11-2024 Telephone encounter Note The patient has been identified by name and date of : Yes Caregiver verified no other encounters exist for this prescription request: Yes Caregiver confirmed with patient/requestor that no other refills are due, in the near future, with this provider at this time: Yes The last office visit in the department: 12/07/2023 Does the patient have a future office visit with this provider/department: Yes 02/28/2024 Requested Prescriptions Pending Prescriptions Disp Refills colestipol (COLESTID) 1 gram tablet 90 tablet 3 Sig: Take 1 tablet by mouth two times a day. Dr. Marley nevillestipol (COLESTID) 1 gram tablet 14 tablet 0 Sig: Take 1 tablet by mouth two times a day. Dr. Zarate Patient has 3 left, wants short term locally Debra Willard LPN January 11, 2024 3:06 PM [facility] 01-11-2024 Miscellaneous Notes The patient has been identified by name and date of : Yes Caregiver verified no other encounters exist for this prescription request: Yes Caregiver confirmed with patient/requestor that no other refills are due, in the near future, with this provider at this time: Yes The last office visit in the department: 12/07/2023 Does the patient have a future office visit with this provider/department: Yes 02/28/2024 Requested Prescriptions Pending Prescriptions Disp Refills colestipol (COLESTID) 1 gram tablet 90 tablet 3 Sig: Take 1 tablet by mouth two times a day. Dr. Zarate colestipol (COLESTID) 1 gram tablet 14 tablet 0 Sig: Take 1 tablet by mouth two times a day. Dr. Zarate Patient has 3 left, wants short term locally Debra Willard LPN January 11, 2024 3:06 PM documented in this encounter [facility] 01-09-2024 Note HNO ID: [id number] Author: YELENA WOODRUFF, ? Service: ? Author Type: Patient Assistant Drafter Type: Progress Notes Filed: 01/09/2024 09:35 Note Text: POPULATION HEALTH NAVIGATION OUTREACH Action/FYI Orders removed since provider did not sign within 7 days and encounter closed. Please have the office reach out to the patient to coordinate any further testing/appointment needs. Reason for Outreach Care Gap/HCC or Scheduling Wellness Visits Care Gaps due: Specialty Scheduling Patient Contacted: Navigation Signature: Yelena Woodruff Population Health Navigator January 09, 2024 9:35 AM [facility] 01-09-2024 History of Present illness Narrative POPULATION HEALTH NAVIGATION OUTREACH Action/FYI Orders removed since provider did not sign within 7 days and encounter closed. Please have the office reach out to the patient to coordinate any further testing/appointment needs. Reason for Outreach Care Gap/HCC or Scheduling Wellness Visits Care Gaps due: Specialty Scheduling Patient Contacted: Navigation Signature: Yelena Woodruff Population Health Navigator January 09, 2024 9:35 AM POPULATION HEALTH NAVIGATION OUTREACH Action/I REQUEST: Alyssa PORTILLO measures: Due by: 03-11-2024 We are bringing this patient to your attention to request your assessment and consideration for either a Bone Density (BMD) order and/or a prescription for a medication to treat or prevent osteoporosis, if appropriate. Reason for Outreach Care Gap/HCC or Scheduling Wellness Visits Care Gaps due: Specialty Scheduling Patient Contacted: Navigation Signature: Yelena Woodruff Population [employer] Navigator December 31, 2023 2:40 PM documented in this encounter [facility] 12-31-2023 Note HNO ID: [id number] Author: YELENA WOODRUFF, ? Service: ? Author Type: Patient Assistant Drafter Type: Progress Notes Filed: 01/09/2024 09:35 Note Text: POPULATION HEALTH NAVIGATION OUTREACH Action/ REQUEST: Alyssa PORTILLO measures: Due by: 03-11-2024 We are bringing this patient to your attention to request your assessment and consideration for either a Bone Density (BMD) order and/or a prescription for a medication to treat or prevent osteoporosis, if appropriate. Reason for Outreach Care Gap/HCC or Scheduling Wellness Visits Care Gaps due: Specialty Scheduling Patient Contacted: Navigation Signature: Yelena Woodruff Population [employer] Navigator December 31, 2023 2:40 PM [facility] 12-31-2023 Note Patient Outreach (ARNOLDO GALEANOAV) LISETTE ENAMORADO ([id number]) 1940 F Date Time Provider Department 12/31/23 YELENA WOODRUFF During your visit today, we recorded the following information about you: Yelena Woodruff 01/09/2024 9:35 AM Signed POPULATION HEALTH NAVIGATION OUTREACH Action/FYI REQUEST: Alyssa PORTILLO measures: Due by: 03-11-2024 We are bringing this patient to your attention to request your assessment and consideration for either a Bone Density (BMD) order and/or a prescription for a medication to treat or prevent osteoporosis, if appropriate. Reason for Outreach Care Gap/HCC or Scheduling Wellness Visits Care Gaps due: Specialty Scheduling Patient Contacted: Navigation Signature: Yelena Woodruff [facility] Navigator December 31, 2023 2:40 PM Yelena Woodruff 01/09/2024 9:35 AM Signed POPULATION HEALTH NAVIGATION OUTREACH Action/FYI Orders removed since provider did not sign within 7 days and encounter closed. Please have the office reach out to the patient to coordinate any further testing/appointment needs. Reason for Outreach Care Gap/HCC or Scheduling Wellness Visits Care Gaps due: Specialty Scheduling Patient Contacted: Navigation Signature: Yelena Woodruff [facility] Navigator January 09, 2024 9:35 AM Allergies As of Date: 12/31/2023 Noted Allergy Reaction DITROPAN (OXYBUTYNIN CHLORIDE) 02/24/2019 8 - GI Upset LISINOPRIL 06/30/2011 3 - Cough Date Reviewed: 12/07/2023 Reviewed by: Morenita Shepard LPN - Fully Assessed Reason for Visit: Population Health Navigation Outreach [3910] Cmt: omw Primary Visit Diagnosis:Screening for osteoporosis [Z13.820] Prescriptions as of 02/28/2024 - colestipol (COLESTID) 1 gram tablet Take 1 tablet by mouth two times a day. Dr. Zarate - colestipol (COLESTID) 1 gram tablet Take 1 tablet by mouth two times a day. Dr. Zarate - nystatin (MYCOSTATIN) cream Apply to affected area two times a day. Continue for 1 week after rash resolves - docusate sodium (COLACE) 100 mg capsule Take 1 capsule by mouth two times a day as needed for constipation. - acetaminophen (TYLENOL EXTRA STRENGTH) 500 mg tablet Take 1 tablet by mouth every 6 hours as needed for pain. Take this or the hydrocodone/acetaminophen every 6 hours as needed for pain - ticagrelor (BRILINTA) 90 mg tablet Take 1 tablet by mouth two times a day. - ezetimibe (ZETIA) 10 mg tablet Take 1 tablet by mouth once daily. - levothyroxine (SYNTHROID) 75 mcg tablet Take 1 tablet by mouth daily before breakfast. - esomeprazole (NEXIUM) 40 mg capsule Take 1 capsule by mouth daily before breakfast. - trospium (SANCTURA) 20 mg tablet Take 1 tablet by mouth once daily. - amLODIPine (NORVASC) 5 mg tablet Take 1 tablet by mouth once daily. - metoprolol tartrate, short acting, (LOPRESSOR) 50 mg tablet Take 1 tablet by mouth three times daily. - cyclobenzaprine (FLEXERIL) 10 mg tablet Take 0.5 tablets by mouth three times daily as needed for muscle spasm or pain. - cholecalciferol, vitamin D3, 4,000 unit cap Take 1 Dose by mouth once daily. - Aspirin 81 mg Tab Take 1 tablet by mouth once daily. Take with food. Problem List As Of Date 12/31/2023 Noted Resolved INCOMPLETE BLADDER EMPTYING [R33.9] 05/11/2005 Essential hypertension [I10] History of IBS [Z87.19] GENERALIZED ANXIETY DIS [F41.1] GENERAL OSTEOARTHROSIS [M15.9] RETENTION OF URINE UNSPEC [R33.9] 08/22/2005 CERVICALGIA [M54.2] 07/24/2006 DIARRHEA NOS [R19.7] 06/16/2008 DIVERTICULOSIS OF COLON W/O BLEED [K57.30] 06/16/2008 Bilateral carotid artery stenosis [I65.23] 06/10/2009 Coronary artery disease involving [place]*01/20/2010 Unspecified Myalgia and Myositis [PHG3448] 02/28/2010 Sleep apnea [G47.30] 10/18/2011 Onychia and [...] with chronic kidney*10/26/2021 Hiatal hernia [K44.9] 07/25/2022 Lung nodule [R91.1] 02/01/2023 Incontinence of feces [R15.9] 03/20/2023 Encounter Status:Closed by YELENA WOODRUFF on 01/09/24 [facility] 12-28-2023 Note HNO ID: [id number] Author: CHAD JARA MA Service: ? Author Type: It Support Consultant Type: Progress Notes Filed: 12/28/2023 10:24 Note Text: POPULATION HEALTH NAVIGATION OUTREACH Action/FYI Patient is on [facility] for below and needs appointment to address: Advance Directive Discussion Behavioral Health Screening No results found for: HBA1C Patient due for: Medicare Annual Wellness Visit Advance Directives Upcoming OV converted per [facility] protocol to AWV. Updated notes to address due care gap and HCC gap closure AD already on file Reason for Outreach Care Gap/HCC or Scheduling Wellness Visits Care Gaps due: Medicare Annual Wellness Visit Patient Contacted: Unable or unnecessary to reach patient: Patient already scheduled Updated appointment notes Navigation Signature: Chad Jara MA December 28, 2023 7:02 AM [facility] 12-28-2023 History of Present illness Narrative POPULATION HEALTH NAVIGATION OUTREACH Action/FYI Patient is on [facility] CURRENT [facility] Workbench list for below and needs appointment to address: Advance Directive Discussion Behavioral Health Screening No results found for: HBA1C Patient due for: Medicare Annual Wellness Visit Advance Directives Upcoming OV converted per [facility] protocol to AWV. Updated notes to address due care gap and HCC gap closure AD already on file Reason for Outreach Care Gap/HCC or Scheduling Wellness Visits Care Gaps due: Medicare Annual Wellness Visit Patient Contacted: Unable or unnecessary to reach patient: Patient already scheduled Updated appointment notes Navigation Signature: Chad Jara MA December 28, 2023 7:02 AM documented in this encounter [facility] 12-28-2023 Note Patient Outreach (ARNOLDO GALEANOAV) LISETTE ENAMORADO ([id number]) 1940 F Date Time Provider Department 12/28/23 CHAD JARA NETADRIANNAV During your visit today, we recorded the following information about you: Chad Jara MA 12/28/2023 10:24 AM Signed POPULATION HEALTH NAVIGATION OUTREACH Action/ Patient is on [facility] CURRENT [facility] Workbench list for below and needs appointment to address: Advance Directive Discussion Behavioral Health Screening No results found for: HBA1C Patient due for: Medicare Annual Wellness Visit Advance Directives Upcoming OV converted per [facility] protocol to AWV. Updated notes to address due care gap and HCC gap closure AD already on file Reason for Outreach Care Gap/HCC or Scheduling Wellness Visits Care Gaps due: Medicare Annual Wellness Visit Patient Contacted: Unable or unnecessary to reach patient: Patient already scheduled Updated appointment notes Navigation Signature: Chad Jara MA December 28, 2023 7:02 AM Allergies As of Date: 12/28/2023 Noted Allergy Reaction DITROPAN (OXYBUTYNIN CHLORIDE) 02/24/2019 8 - GI Upset LISINOPRIL 06/30/2011 3 - Cough Date Reviewed: 12/07/2023 Reviewed by: Morenita Shepard LPN - Fully Assessed Reason for Visit: Population Health Navigation Outreach [3910] Cmt: Alyssa [facility] CURRENT [facility] workbench - AWV, Care gaps, HCC gap closure - [place] [facility] Prescriptions as of 12/28/2023 - nystatin (MYCOSTATIN) cream Apply to affected area two times a day. Continue for 1 week after rash resolves - docusate sodium (COLACE) 100 mg capsule Take 1 capsule by mouth two times a day as needed for constipation. - acetaminophen (TYLENOL EXTRA STRENGTH) 500 mg tablet Take 1 tablet by mouth every 6 hours as needed for pain. Take this or the hydrocodone/acetaminophen every 6 hours as needed for pain - ticagrelor (BRILINTA) 90 mg tablet Take 1 tablet by mouth two times a day. - colestipol (COLESTID) 1 gram tablet Take 1 tablet by mouth two times a day. Dr. Zarate - ezetimibe (ZETIA) 10 mg tablet Take 1 tablet by mouth once daily. - levothyroxine (SYNTHROID) 75 mcg tablet Take 1 tablet by mouth daily before breakfast. - esomeprazole (NEXIUM) 40 mg capsule Take 1 capsule by mouth daily before breakfast. - trospium (SANCTURA) 20 mg tablet Take 1 tablet by mouth once daily. - amLODIPine (NORVASC) 5 mg tablet Take 1 tablet by mouth once daily. - metoprolol tartrate, short acting, (LOPRESSOR) 50 mg tablet Take 1 tablet by mouth three times daily. - cyclobenzaprine (FLEXERIL) 10 mg tablet Take 0.5 tablets by mouth three times daily as needed for muscle spasm or pain. - cholecalciferol, vitamin D3, 4,000 unit cap Take 1 Dose by mouth once daily. - Aspirin 81 mg Tab Take 1 tablet by mouth once daily. Take with food. Problem List As Of Date 12/28/2023 Noted Resolved INCOMPLETE BLADDER EMPTYING [R33.9] 05/11/2005 Essential hypertension [I10] History of IBS [Z87.19] GENERALIZED ANXIETY DIS [F41.1] GENERAL OSTEOARTHROSIS [M15.9] RETENTION OF URINE UNSPEC [R33.9] 08/22/2005 CERVICALGIA [M54.2] 07/24/2006 DIARRHEA NOS [R19.7] 06/16/2008 DIVERTICULOSIS OF COLON W/O BLEED [K57.30] 06/16/2008 Bilateral carotid artery stenosis [I65.23] 06/10/2009 Coronary artery disease involving [place]*01/20/2010 Unspecified Myalgia and Myositis [IEW1486] 02/28/2010 Sleep apnea [G47.30] 10/18/2011 Onychia and [...] with chronic kidney*10/26/2021 Hiatal hernia [K44.9] 07/25/2022 Lung nodule [R91.1] 02/01/2023 Incontinence of feces [R15.9] 03/20/2023 Encounter Status:Closed by CHAD JARA on 12/28/23 [facility] 12-07-2023 Telephone encounter Note Patient calling requesting name of prescription ordered. Patient denies any new or worsening symptoms of which a provider is not aware:N/A pt disconnected after being notified nystatin cream. [facility] 12-07-2023 Miscellaneous Notes Patient calling requesting name of prescription ordered. Patient denies any new or worsening symptoms of which a provider is not aware:N/A pt disconnected after being notified nystatin cream. documented in this encounter [facility] 12-07-2023 Instructions Alber Max MD - 12/07/2023 4:01 PM EDT For bottom: Zinc oxide A&D ointment Cornstarch powder Imodium after each loose stool up to 4 times a day. May use prior to travel if needed. documented in this encounter [facility] 12-07-2023 Note HNO ID: [id number] Author: ALBER MXA MD Service: ? Author Type: Physician Type: Progress Notes Filed: 01/10/2024 00:43 Note Text: This note was created using [employer]. Subjective Lisette Enamorado is a 83 year old female. Patient presents with: Same Day Appointment: Diarrhea since last evening and starting to experience other symptoms SUBJECTIVE: Lisette Enamorado is a 83 year old year old lady here today for follow up appointment for review of medical conditions: diarrhea and rectum sore with bleeding from rectal irritation. Vaseline was a bit irritating. Stomach upset a little bit ago. Has not tried Imodium yet. To get on plane 6AM so will be picked up 4AM. At least 10 to12 BMs since last night. Every time gets up to walk, has to have BM. Last BM was 2 hours ago. Soft stools, not watery. No blood in the stools. No change in diet Dinner was eating out at a meeting at the [employer]. Hot dog, macaroni salad (barely a spoonful). baked beans. PAST MEDICAL HISTORY Diagnosis Date Coronary artery disease Diarrhea Generalized anxiety disorder Generalized osteoarthrosis, unspecified site lumbar and c-spine Hematochezia 03/31/2021 Incomplete bladder emptying 05/11/2005 Irritable bowel syndrome Pure hypercholesterolemia Thyroid disease Unspecified essential hypertension Current Outpatient Medications Medication Sig docusate sodium (COLACE) 100 mg capsule Take 1 capsule by mouth two times a day as needed for constipation. acetaminophen (TYLENOL EXTRA STRENGTH) 500 mg tablet Take 1 tablet by mouth every 6 hours as needed for pain. Take this or the hydrocodone/acetaminophen every 6 hours as needed for pain colestipol (COLESTID) 1 gram tablet Take 1 tablet by mouth two times a day. Dr. Zarate ezetimibe (ZETIA) 10 mg tablet Take 1 tablet by mouth once daily. levothyroxine (SYNTHROID) 75 mcg tablet Take 1 tablet by mouth daily before breakfast. esomeprazole (NEXIUM) 40 mg capsule Take 1 capsule by mouth daily before breakfast. amLODIPine (NORVASC) 5 mg tablet Take 1 tablet by mouth once daily. metoprolol tartrate, short acting, (LOPRESSOR) 50 mg tablet Take 1 tablet by mouth three times daily. cholecalciferol, vitamin D3, 4,000 unit cap Take 1 Dose by mouth once daily. Aspirin 81 mg Tab Take 1 tablet by mouth once daily. Take with food. ticagrelor (BRILINTA) 90 mg tablet Take 1 tablet by mouth two times a day. (Patient not taking: Reported on 12/07/2023) trospium (SANCTURA) 20 mg tablet Take 1 tablet by mouth once daily. cyclobenzaprine (FLEXERIL) 10 mg tablet Take 0.5 tablets by mouth three times daily as needed for muscle spasm or pain. (Patient not taking: Reported on 08/27/2023) No current facility-administered medications for this visit. Review of Systems Objective BP 122/68 Pulse 72 Temp 36.7 ?C (98.1 ?F) Resp 18 Wt 64.9 kg (143 lb) SpO2 99% BMI 26.16 kg/m? Physical Exam Constitutional: Appearance: Normal appearance. HENT: Head: Normocephalic. Eyes: Conjunctiva/sclera: Conjunctivae normal. Cardiovascular: Rate and Rhythm: Normal rate and regular rhythm. Heart sounds: Normal heart sounds. Pulmonary: Effort: Pulmonary effort is normal. Breath sounds: Normal breath sounds. Abdominal: General: Abdomen is flat. Bowel sounds are normal. Palpations: Abdomen is soft. Tenderness: There is no abdominal tenderness. Genitourinary: Comments: Redness around rectal area Skin: General: Skin is warm and dry. Neurological: General: No focal deficit present. Mental Status: She is alert and oriented to person, place, and time. Psychiatric: Mood and Affect: Mood normal. Behavior: Behavior normal. Thought Content: Thought content normal. Judgment: Judgment normal. Assessment and Plan ASSESSMENT/PLAN: 1. Diarrhea, unspecified type - ICD9: 787.91, ICD10: R19.7 (primary diagnosis) Uncertain the cause, but maybe something had eaten last night versus acute viral gastroenteritis. Appears to be resolving. [place] diet, low residual for now; slowly advance as tolerated. Avoid milk products for now and add as tolerated. No persistent or significant bleeding noted 2. Rectal irritation - ICD9: 569.49, ICD10: K62.89 Due to frequent diarrhea. - NYSTATIN 100,000 UNIT/GRAM TOPICAL CREAM May try other topicals as used for diaper rash, such as zinc oxide with petrolatum. Further evaluation and treatment as indicated. Alber Max MD [facility] 12-07-2023 History of Present illness Narrative This note was created using [employer]. Subjective Lisette Enamorado is a 83 year old female. Patient presents with: Same Day Appointment: Diarrhea since last evening and starting to experience other symptoms SUBJECTIVE: Lisette Enamorado is a 83 year old year old lady here today for follow up appointment for review of medical conditions: diarrhea and rectum sore with bleeding from rectal irritation. Vaseline was a bit irritating. Stomach upset a little bit ago. Has not tried Imodium yet. To get on plane 6AM so will be picked up 4AM. At least 10 to12 BMs since last night. Every time gets up to walk, has to have BM. Last BM was 2 hours ago. Soft stools, not watery. No blood in the stools. No change in diet Dinner was eating out at a meeting at the [employer]. Hot dog, macaroni salad (barely a spoonful). baked beans. PAST MEDICAL HISTORY Diagnosis Date Coronary artery disease Diarrhea Generalized anxiety disorder Generalized osteoarthrosis, unspecified site lumbar and c-spine Hematochezia 03/31/2021 Incomplete bladder emptying 05/11/2005 Irritable bowel syndrome Pure hypercholesterolemia Thyroid disease Unspecified essential hypertension Current Outpatient Medications Medication Sig docusate sodium (COLACE) 100 mg capsule Take 1 capsule by mouth two times a day as needed for constipation. acetaminophen (TYLENOL EXTRA STRENGTH) 500 mg tablet Take 1 tablet by mouth every 6 hours as needed for pain. Take this or the hydrocodone/acetaminophen every 6 hours as needed for pain colestipol (COLESTID) 1 gram tablet Take 1 tablet by mouth two times a day. Dr. Zarate ezetimibe (ZETIA) 10 mg tablet Take 1 tablet by mouth once daily. levothyroxine (SYNTHROID) 75 mcg tablet Take 1 tablet by mouth daily before breakfast. esomeprazole (NEXIUM) 40 mg capsule Take 1 capsule by mouth daily before breakfast. amLODIPine (NORVASC) 5 mg tablet Take 1 tablet by mouth once daily. metoprolol tartrate, short acting, (LOPRESSOR) 50 mg tablet Take 1 tablet by mouth three times daily. cholecalciferol, vitamin D3, 4,000 unit cap Take 1 Dose by mouth once daily. Aspirin 81 mg Tab Take 1 tablet by mouth once daily. Take with food. ticagrelor (BRILINTA) 90 mg tablet Take 1 tablet by mouth two times a day. (Patient not taking: Reported on 12/07/2023) trospium (SANCTURA) 20 mg tablet Take 1 tablet by mouth once daily. cyclobenzaprine (FLEXERIL) 10 mg tablet Take 0.5 tablets by mouth three times daily as needed for muscle spasm or pain. (Patient not taking: Reported on 08/27/2023) No current facility-administered medications for this visit. Review of Systems Objective BP 122/68 Pulse 72 Temp 36.7 C (98.1 F) Resp 18 Wt 64.9 kg (143 lb) SpO2 99% BMI 26.16 kg/m Physical Exam Constitutional: Appearance: Normal appearance. HENT: Head: Normocephalic. Eyes: Conjunctiva/sclera: Conjunctivae normal. Cardiovascular: Rate and Rhythm: Normal rate and regular rhythm. Heart sounds: Normal heart sounds. Pulmonary: Effort: Pulmonary effort is normal. Breath sounds: Normal breath sounds. Abdominal: General: Abdomen is flat. Bowel sounds are normal. Palpations: Abdomen is soft. Tenderness: There is no abdominal tenderness. Genitourinary: Comments: Redness around rectal area Skin: General: Skin is warm and dry. Neurological: General: No focal deficit present. Mental Status: She is alert and oriented to person, place, and time. Psychiatric: Mood and Affect: Mood normal. Behavior: Behavior normal. Thought Content: Thought content normal. Judgment: Judgment normal. Assessment and Plan ASSESSMENT/PLAN: 1. Diarrhea, unspecified type - ICD9: 787.91, ICD10: R19.7 (primary diagnosis) Uncertain the cause, but maybe something had eaten last night versus acute viral gastroenteritis. Appears to be resolving. [place] diet, low residual for now; slowly advance as tolerated. Avoid milk products for now and add as tolerated. No persistent or significant bleeding noted 2. Rectal irritation - ICD9: 569.49, ICD10: K62.89 Due to frequent diarrhea. - NYSTATIN 100,000 UNIT/GRAM TOPICAL CREAM May try other topicals as used for diaper rash, such as zinc oxide with petrolatum. Further evaluation and treatment as indicated. Alber Max MD documented in this encounter [facility] 12-07-2023 Telephone encounter Note Patient call in for diarrhea since last night with blood on toilet paper after wiping. Nurse Triage assessment completed with protocol recommending for disposition of See PCP in 4 hours[address] Patient scheduled with Dr. Max at 2:40. Care advice reviewed with patient, patient stated understanding. Patient advised to contact office or seek evaluation in urgent care or ER if symptoms persist or gets worse. Reason for Disposition Diarrhea is main symptom [1] SEVERE diarrhea (e.g., 7 or more times / day more than normal) AND [2] age > 60 years Answer Assessment - Initial Assessment Questions 1. APPEARANCE of BLOOD: Blood on tissue when she wipes 2. AMOUNT: Every time she goes she has blood on tissue when she wipes. 3. FREQUENCY: 5 or 6 now. 4. ONSET: Today; Patient started with loose stool. 5. DIARRHEA: Patient states that she cannot say. Patient stays that it is constant. 20-30 times states colon does not feel right. 6. CONSTIPATION: Denies. 7. RECURRENT SYMPTOMS: Yes but was more from internal bleeding. 8. BLOOD THINNERS: [place] 9. OTHER SYMPTOMS: Pain in colon area Answer Assessment - Initial Assessment Questions 1. DIARRHEA SEVERITY: Severe Diarrhea; 20-30 times 2. ONSET: Last night 3. BM CONSISTENCY: Diarrhea 4. VOMITING: Denies 5. ABDOMEN PAIN: States that colon does not feel right 6. ABDOMEN PAIN SEVERITY: Denies pain 7. ORAL INTAKE: Only 2 cups of coffee; Boost 8. HYDRATION: Legs starting to get shaky 9. EXPOSURE: Denies 10. ANTIBIOTIC USE: Denies 11. OTHER SYMPTOMS: Blood in stool Protocols used: Rectal [id number], [id number] [facility] 12-07-2023 Miscellaneous Notes Patient call in for diarrhea since last night with blood on toilet paper after wiping. Nurse Triage assessment completed with protocol recommending for disposition of See PCP in 4 hours. Patient scheduled with Dr. Max at 2:40. Care advice reviewed with patient, patient stated understanding. Patient advised to contact office or seek evaluation in urgent care or ER if symptoms persist or gets worse. Reason for Disposition Diarrhea is main symptom [1] SEVERE diarrhea (e.g., 7 or more times / day more than normal) AND [2] age > 60 years Answer Assessment - Initial Assessment Questions 1. APPEARANCE of BLOOD: Blood on tissue when she wipes 2. AMOUNT: Every time she goes she has blood on tissue when she wipes. 3. FREQUENCY: 5 or 6 now. 4. ONSET: Today; Patient started with loose stool. 5. DIARRHEA: Patient states that she cannot say. Patient stays that it is constant. 20-30 times states colon does not feel right. 6. CONSTIPATION: Denies. 7. RECURRENT SYMPTOMS: Yes but was more from internal bleeding. 8. BLOOD THINNERS: [place] 9. OTHER SYMPTOMS: Pain in colon area Answer Assessment - Initial Assessment Questions 1. DIARRHEA SEVERITY: Severe Diarrhea; 20-30 times 2. ONSET: Last night 3. BM CONSISTENCY: Diarrhea 4. VOMITING: Denies 5. ABDOMEN PAIN: States that colon does not feel right 6. ABDOMEN PAIN SEVERITY: Denies pain 7. ORAL INTAKE: Only 2 cups of coffee; Boost 8. HYDRATION: Legs starting to get shaky 9. EXPOSURE: Denies 10. ANTIBIOTIC USE: Denies 11. OTHER SYMPTOMS: Blood in stool Protocols used: Rectal [id number], [id number] documented in this encounter [facility] 11-06-2023 History of Present illness Narrative POPULATION HEALTH NAVIGATION OUTREACH Action/FYI Orders removed since provider did not sign within 7 days and encounter closed. Please have the office reach out to the patient to coordinate any further testing/appointment needs. Reason for Outreach Care Gap/HCC or Scheduling Wellness Visits Care Gaps due: Specialty Scheduling Patient Contacted: Unable or unnecessary to reach patient: Navigation Signature: Yelena Woodruff Population Health Navigator November 06, 2023 2:49 PM POPULATION HEALTH NAVIGATION OUTREACH Action/FYI REQUEST: Alyssa MARTÍNEZ measures: We are bringing this patient to your attention to request your assessment and consideration for either a Bone Density (BMD) order and/or a prescription for a medication to treat or prevent osteoporosis, if appropriate. Reason for Outreach Care Gap/HCC or Scheduling Wellness Visits Care Gaps due: Specialty Scheduling Patient Contacted: Unable or unnecessary to reach patient: Navigation Signature: Yelena Woodruff Population Health Navigator October 29, 2023 7:22 AM documented in this encounter [facility] 10-08-2023 History of Present illness Narrative This note was created using [employer]. Subjective Lisette Enamorado is a 83 year old female. HPI Pt was outside about 5 days ago and ended up finding about 20 ticks. Pt has generalized body aches. Patient is somewhat vague stating that the bugs were crawling all over her but she states that the people who saw them also felt they were ticks. Review of Systems Constitutional: Negative for fatigue and fever. Gastrointestinal: Positive for diarrhea. Musculoskeletal: Positive for myalgias. Skin: Negative for rash. Objective BP 124/67 Pulse 67 Temp 37.2 C (98.9 F) Resp 21 Wt 65.4 kg (144 lb 2.9 oz) SpO2 97% BMI 26.37 kg/m Physical Exam Vitals and nursing note reviewed. Constitutional: General: She is not in acute distress. Appearance: Normal appearance. She is not ill-appearing. HENT: Head: Normocephalic. Mouth/Throat: Mouth: Mucous membranes are moist. Eyes: Conjunctiva/sclera: Conjunctivae normal. Cardiovascular: Rate and Rhythm: Normal rate and regular rhythm. Pulmonary: Effort: Pulmonary effort is normal. Breath sounds: Normal breath sounds. Musculoskeletal: General: Normal range of motion. Cervical back: Normal range of motion. Skin: General: Skin is warm and dry. Findings: No rash. Neurological: General: No focal deficit present. Mental Status: She is alert. Psychiatric: Mood and Affect: Mood normal. Behavior: Behavior normal. Assessment and Plan ASSESSMENT/PLAN: 1. Tick bite of multiple sites - ICD9: 919.4, E906.4, ICD10: W57.XXXA As patient notes concern for tick bites with at least 24 hours of engorgement patient was started on doxycycline for 14 days. I did encourage her to contact her PCP and arrange for continued evaluation and management. We did discuss testing for Lyme disease and I informed her that to my knowledge the Lyme test was not overly sensitive or specific and patient preferred not to have the testing done at this time. Raffy Hanley APRN.HAM documented in this encounter [facility] 08-27-2023 Instructions Katey Solano APRN.CNS - 08/27/2023 11:43 AM EDT Take hydrocodone acetaminophen as needed for shoulder pain. This can make you drowsy so avoid using it if you need to be alert. It can cause constipation so take docusate if noting constipation once or twice daily. Schedule appointment with orthopedic provider. Schedule an MRI of your right shoulder documented in this encounter [facility] 08-27-2023 History of Present illness Narrative SUBJECTIVE: Advance Directive Discussion due on 06/11/2023 Depression Assessment due on 06/11/2023 MALIKA Marcelinoton is a 83 year old female. PMH significant for ACTIVE PROBLEM LIST Incomplete Bladder Emptying Essential Hypertension History of Ibs Generalized Anxiety Disorder Generalized Osteoarthrosis, Unspecified Site Retention of Urine, Unspecified Cervicalgia Diarrhea Diverticulosis of Colon (Without Mention of Hemorrhage) Bilateral Carotid Artery Stenosis Coronary Artery Disease Involving [place] Coronary Artery of [place] Heart Without Angina Pectoris Myalgia and Myositis, Unspecified Sleep Apnea Onychia and Paronychia of Toe Lumbago Bursitis of Left Shoulder Right Cervical Radiculopathy Right Carpal Tunnel Syndrome Hyperlipidemia Hypothyroidism Sensorineural Hearing Loss, Bilateral Otalgia Bilateral Impacted Cerumen Ckd (Chronic Kidney Disease) Stage 3, Gfr 30-59 Ml/Min (Formerly [facility]) Pvd (Peripheral Vascular Disease) (Formerly [facility]) Grade II Diastolic Dysfunction Heme Positive Stool Hypertensive Kidney Disease With Chronic Kidney Disease Stage Iii (Formerly [facility]) Hiatal Hernia Lung Nodule Incontinence of Feces Presents today right shoulder pain after a fall. She was seen in [facility] on July 31, 2023 for acute pain of right shoulder. She reported a fall on July 30 when she was quite dancing tripping and falling landing on her right shoulder. She noted pain with lifting her right arm, noted preserved range of motion. X-ray completed and did not show a fracture. She was treated with Tylenol. Present today noting restricted range of motion and pain of the right shoulder. Pain is mostly with motion such as with raising her right arm, reaching behind her back, moving her arm laterally. She reports unable to do any of these motions due to pain. She reports using Tylenol as needed but pain has been moderately severe and kept her awake all night yesterday. Review of Systems Musculoskeletal: Positive for arthralgias. Objective BP 128/72 Pulse 74 Resp 16 Wt 64.9 kg (143 lb) BMI 26.16 kg/m Physical Exam Vitals and nursing note reviewed. Constitutional: Appearance: Normal appearance. HENT: Head: Normocephalic and atraumatic. Eyes: Conjunctiva/sclera: Conjunctivae normal. Cardiovascular: Rate and Rhythm: Normal rate. Pulmonary: Effort: Pulmonary effort is normal. Musculoskeletal: Right shoulder: Tenderness and bony tenderness present. Decreased range of motion. Decreased strength. Normal pulse. Skin: General: Skin is warm and dry. Neurological: General: No focal deficit present. Mental Status: She is alert and oriented to person, place, and time. ALLERGIES Allergen Reactions Ditropan [Oxybutyni* GI Upset Lisinopril Cough Medications ticagrelor (BRILINTA) 90 mg tablet Take 1 tablet by mouth two times a day. colestipol (COLESTID) 1 gram tablet Take 1 tablet by mouth two times a day. Dr. Zarate ezetimibe (ZETIA) 10 mg tablet Take 1 tablet by mouth once daily. levothyroxine (SYNTHROID) 75 mcg tablet Take 1 tablet by mouth daily before breakfast. esomeprazole (NEXIUM) 40 mg capsule Take 1 capsule by mouth daily before breakfast. amLODIPine (NORVASC) 5 mg tablet Take 1 tablet by mouth once daily. metoprolol tartrate, short acting, (LOPRESSOR) 50 mg tablet Take 1 tablet by mouth three times daily. cholecalciferol, vitamin D3, 4,000 unit cap Take 1 Dose by mouth once daily. Aspirin 81 mg Tab Take 1 tablet by mouth once daily. Take with food. HYDROcodone-Acetaminophen (NORCO) 7.5-325 mg per tablet Take 1 tablet by mouth every 6 hours as needed for pain for up to 7 days. For shoulder pain docusate sodium (COLACE) 100 mg capsule Take 1 capsule by mouth two times a day as needed for constipation. acetaminophen (TYLENOL EXTRA STRENGTH) 500 mg tablet Take 1 tablet by mouth every 6 hours as needed for pain. Take this or the hydrocodone/acetaminophen every 6 hours as needed for pain trospium (SANCTURA) 20 mg tablet Take 1 tablet by mouth once daily. cyclobenzaprine (FLEXERIL) 10 mg tablet Take 0.5 tablets by mouth three times daily as needed for muscle spasm or pain. (Patient not taking: Reported on 08/27/2023) PAST MEDICAL HISTORY Diagnosis Date Coronary artery disease Diarrhea Generalized anxiety disorder Generalized osteoarthrosis, unspecified site lumbar and c-spine Hematochezia 03/31/2021 Incomplete bladder emptying 05/11/2005 Irritable bowel syndrome Pure hypercholesterolemia Thyroid disease Unspecified essential hypertension Social History Tobacco Use Smoking status: Never Smokeless tobacco: Never Vaping Use Vaping Use: Never used Substance Use Topics Alcohol use: Yes Comment: rare glass of wine Drug use: No Creatinine Date Value Ref Range Status 01/29/2023 1.09 (H) 0.58 - 0.96 mg/dL Final 11/02/2022 1.19 (H) 0.58 - 0.96 mg/dL Final 10/13/2022 1.47 (H) 0.58 - 0.96 mg/dL Final 12/08/2021 1.04 (H) 0.58 - 0.96 mg/dL Final ASSESSMENT/PLAN: 1. Acute pain of right shoulder - ICD9: 719.41, ICD10: M25.511 (primary diagnosis) 2. Injury of right shoulder, subsequent encounter - ICD9: V58.89, 959.2, ICD10: S49.91XD She was seen in [facility] for right shoulder pain and injury approximately 3 weeks ago. Pain is persisting and moderately severe she is not taking NSAIDs due to and range of motion is significantly decreased from when previously seen. Chronic kidney disease. Due to severely decreased range of motion of the right shoulder recommend MRI for further evaluation and treatment as indicated. Treat with Tylenol or hydrocodone as needed for pain. Schedule an appointment with orthopedic provider for further evaluation and treatment as indicated - HYDROCODONE 7.5 MG-ACETAMINOPHEN 325 MG TABLET - CONSULT TO ORTHOPAEDICS - DOCUSATE SODIUM 100 MG CAPSULE - CONSULT TO PHYSICAL THERAPY - MRI SHOULDER WO IVCON RIGHT 1 mo recheck Katey Solano APRN.GERIATRICIAN 6 mo follow up MD Katey Hardy APRN.CNS Medical Decision Making: Problems: Low: Acute, uncomplicated illness or injury Data: Unique test(s) ordered: 1 Risk: Moderate: Drug management Medical Decision Making Level: 3 - Low documented in this encounter [facility] 08-03-2023 Miscellaneous Notes Patient calling said she needs referral faxed to Dr Reeves office, did not have fax number. Printed face sheet, insurance card copy, consult, office notes and faxed to [phone]. Pt called in asking about Gastro appointment. I told her I could put her through to our schedulers, but it would be an out of town appointment. She said she lives by herself so she would prefer to stay local. I gave her Dr Friend's phone # to see if he is accepting new Pts but let her know I didn't think he was. I also gave her Dr Reeves's number. She will call back and let us know where to send the information. documented in this encounter [facility] 07-31-2023 Instructions Barbara Green APRN.HAM - 07/31/2023 4:39 PM EST Tylenol (generic acetaminophen) 500 mg-2 tabs every 8 hrs. as needed for fever and aches Rest, gentle stretches If no improvement follow up with orthopedic doctor documented in this encounter [facility] 07-31-2023 History of Present illness Narrative Radiology Service Progress Note PATIENT NAME: Lisette Enamorado DATE OF SERVICE: July 31, 2023 TIME: 4:03 PM PATIENT IDENTITY VERIFICATION COMPLETED USING TWO (2) IDENTIFIERS: Name and Date of confirmed by patient verbally. FALL SCREENING: Has the patient had 2 falls in the last year or 1 fall with injury or currently using an Ambulatory Assistive Device (Walker, Cane, Wheelchair, Crutches, etc.)? No PATIENT GENDER DATA: Female. status: : No status: NO. PATIENT RELEVANT IMPLANT DATA REVIEWED: Yes PATIENT PRESENTS WITH AN IMPLANTABLE OR ATTACHED DCS ENGINEER: No RADIOLOGY DEPARTMENT: General X-ray: Exam(s) Completed: Upper Extremity X-Ray(s): Shoulder, AP / TRUE AP / AXILLARY right PERIPHERAL IV DATA: Not applicable SIGNED BY: RT Jean-Paul(R) July 31, 2023 4:03 PM documented in this encounter [facility] 07-31-2023 Miscellaneous Notes Spoke with pt and information listed below given. Pt verbalizes understanding. Merna Knox LPN TC to pt. GIO full - will try again later. Please call patient inform that her urine was negative for UTI, however she was positive for COVID 19 on 07/24/23. Inform of the following: Follow the CDC guidelines for isolation: 10 days since symptoms first appeared, 24 hours with no fever without the use of fever-reducing medications, and other symptoms of COVID-19 are improving. Please start home isolation, monitor your symptoms, and for any worrisome symptoms, please reach out. Nisreen Bermudez PA-C documented in this encounter [facility] 07-31-2023 History of Present illness Narrative Subjective HPI HPI Lisette Enamorado is a 83 year old female who presents today for CC of right shoulder pain after a fall yesterday when square dancing, she tripped, landing on right shoulder. She is able to move shoulder but experiences pain with lifting. BP 122/62 Pulse 75 Temp 37.6 C (99.6 F) (Tympanic) Resp 18 Wt 66.1 kg (145 lb 12.8 oz) SpO2 96% BMI 26.67 kg/m Social History Tobacco Use Smoking status: Never Smokeless tobacco: Never Vaping Use Vaping Use: Never used Substance Use Topics Alcohol use: Yes Comment: rare glass of wine Drug use: No PAST MEDICAL HISTORY Diagnosis Date Coronary artery disease Diarrhea Generalized anxiety disorder Generalized osteoarthrosis, unspecified site lumbar and c-spine Hematochezia 03/31/2021 Incomplete bladder emptying 05/11/2005 Irritable bowel syndrome Pure hypercholesterolemia Thyroid disease Unspecified essential hypertension I have confirmed and edited as necessary, the [facility] Review of Systems Constitutional: Negative for chills and fever. HENT: Negative for congestion, ear pain, sinus pain and sore throat. Respiratory: Negative for cough, sputum production, shortness of breath and wheezing. Cardiovascular: Negative for chest pain. Musculoskeletal: Positive for joint pain (right shoulder area) and myalgias (right shoulder area). Neurological: Negative for headaches. Objective Physical Exam Vitals and nursing note reviewed. Cardiovascular: Pulses: Radial pulses are 2+ on the right side and 2+ on the left side. Musculoskeletal: Right shoulder: Tenderness present. No swelling, deformity, effusion, laceration, bony tenderness or crepitus. Decreased range of motion. Normal strength. Normal pulse. Left shoulder: Normal. Skin: General: Skin is warm and dry. Neurological: Mental Status: She is alert and oriented to person, place, and time. Sensory: Sensation is intact. Psychiatric: Mood and Affect: Affect normal. ASSESSMENT/PLAN: 1. Acute pain of right shoulder - ICD9: 719.41, ICD10: M25.511 Tylenol as discussed due to altered kidney function Rest, ice/heat Gentle stretches. - XR SHOULDER GENERAL 3V OR MORE AP/TRUE AP/OTHER RIGHT RESULTS: The bones are intact and normally aligned. There are no underlying bone lesions. The joint spaces appear normal. There are no periarticular calcifications. IMPRESSION: Within normal limits. No fracture or other acute changes. Interpreted by : FREDERIC TERAN MD Diagnosis and treatment plan were discussed and questions were answered to the patient's satisfaction. Pt acknowledged understanding of concepts and follow up plan. Specific signs and symptoms that would indicate the need for higher level of care were discussed in detail warranting prompt ER evaluation. Barbara Green APRN.EXHIBIT SPECIALIST documented in this encounter [facility] 07-24-2023 Miscellaneous Notes Addended by: NISREEN BERMUDEZ on: 07/24/2023 03:53 PM Modules accepted: Orders Addended by: KIRIT LUONG LPN on: 07/24/2023 03:50 PM Modules accepted: Orders documented in this encounter [facility] 07-24-2023 History of Present illness Narrative CC: Patient presents with: ER F/U: 07/13/23; GI Bleed, blood/mucus in stool with DIONNE abdominal pain; 07/22 onset of flu like SX HPI Lisette Enamorado is a 83 year old female who presents today for ER follow-up, to discuss abdominal US results, and for evaluation of new onset flu sx. C/o fever, coughing, body aches, sneezing since Sunday. Facility: [facility] Date of visit: 07/13/23 Reason for visit: Blood and mucus in stool, Right sided abdominal pain Hospital course: IV fluids given. FIT testing positive. Remarkable labs as follows: Creatinine 1.[address] scan of abdomen w/ contrast revealed focal area of bowel wall thickening in the distal transverse colon. Possibly focal colitis. Pt was txed w/ abx for colitis in ED (Augmentin) and discharged home on outpatient prescription. Given Diagnosis: Focal colitis, Bacterial diarrhea, blood in stool Discharge: Home, Discharged on course of Augmentin x 10 days. Current symptoms: No longer having blood and mucus in the stools. Notes this is the third time this has occurred. Discuss abd US results (msg from Dr. Mace). ER f/u 07/13/23 for blood in stool and abd pain at [facility]. Labs and CT abd/pelvis w/ contrast performed and showed possible focal colitis. I'm having a really hard time urinating. States she drinks a lot of wate Drinks a lot of water but states it doesn't seem to be quenching her thirst x quite awhile. REVIEW OF SYSTEMS GI: No nausea, vomiting, or diarrhea See HPI PAST MEDICAL HISTORY Diagnosis Date [...] SPEC WHEN PFRMD 08/11/2019 Colonoscopy EGD W/O [facility] SPEC VARICIES INJ 08/08/2021 ESOPHAGOGASTRODUODENOSCOPY TRANSORAL DIAGNOSTIC 08/09/2015 EGD ESOPHAGOGASTRODUODENOSCOPY TRANSORAL DIAGNOSTIC 08/11/2019 EGD LEFT HEART CATH,PERCUTANEOUS 09/26/2012 Cardiac cath, L heart [facility] - chest pain STENT PLACEMENT 03/22, 09/21 medicated cardiac stent TONSILLECTOMY HX TONSILLECTOMY PRIMARY/SECONDARY <AGE 12 Tonsillectomy ALLERGIES Ditropan [Oxybutynin Chloride] and Lisinopril MEDICATIONS ticagrelor (BRILINTA) 90 mg tablet Take 1 tablet by mouth two times a day. colestipol (COLESTID) 1 gram tablet Take 1 tablet by mouth two times a day. Dr. Zarate ezetimibe (ZETIA) 10 mg tablet Take 1 tablet by mouth once daily. levothyroxine (SYNTHROID) 75 mcg tablet Take 1 tablet by mouth daily before breakfast. esomeprazole (NEXIUM) 40 mg capsule Take 1 capsule by mouth daily before breakfast. amLODIPine (NORVASC) 5 mg tablet Take 1 tablet by mouth once daily. metoprolol tartrate, short acting, (LOPRESSOR) 50 mg tablet Take 1 tablet by mouth three times daily. cholecalciferol, vitamin D3, 4,000 unit cap Take 1 Dose by mouth once daily. Aspirin 81 mg Tab Take 1 tablet by mouth once daily. Take with food. trospium (SANCTURA) 20 mg tablet Take 1 tablet by mouth once daily. cyclobenzaprine (FLEXERIL) 10 mg tablet Take 0.5 tablets by mouth three times daily as needed for muscle spasm or pain. (Patient not taking: Reported on 01/30/2023) FAMILY HISTORY Problem Relation Age of Onset Heart Mother CABG x3 Hypertension Mother Breast Cancer Mother Heart Father other (lung problems) Father Social History Tobacco Use Smoking status: Never Smokeless tobacco: Never Vaping Use Vaping Use: Never used Substance Use Topics Alcohol use: Yes Comment: rare glass of wine Drug use: No PHYSICAL EXAM BP 115/66 Pulse 91 Temp (!) 38.3 C (101 F) (Oral) Resp 20 Wt 63.7 kg (140 lb 6.4 oz) SpO2 99% BMI 25.68 kg/m General Appearance: Ill-appearing, in no acute distress, alert Pysch: mood and affect broad and appropriate Skin: Skin color, texture, turgor normal for age; HEENT: Wearing N95 on presentation, +PND, clear rhinorrhea Lymph nodes: No cervical lymphadenopathy Lungs: Lungs clear to auscultation. No wheezing, rhonchi, rales. Heart: RRR without murmur, gallop, or rubs. No ectopy Abdomen: Abdomen soft, no tenderness to palpation. Bowel sounds normal. No masses, organomegaly No rigidity, guarding, or other evidence of acute abdomen demonstrated on exam Extremities: No gross deformities, significant edema, skin discoloration, clubbing or cyanosis. Neurological: Gait normal. No focal neurological deficits. Sensation grossly intact. ASSESSMENT/PLAN: 1. Flu-like symptoms - ICD9: 780.99, ICD10: R68.89 (primary diagnosis) Suspect flu based on clinical presentation. COVID and flu testing ordered; Results will be released to [facility] in 24-48 hours.Discussed quarantine, social distancing, hand washing/proper hygiene. Rest, fluids, Symptomatic tx with IBU and Tylenol discussed. Explained that if positive, this is a viral process, and will go away despite treatment. - COVID & INFLUENZA A/B NAAT, ROUTINE 2. Colitis - ICD9: 558.9, ICD10: K52.9 Finishing up course of Augmentin. Symptoms are resolved at this point in time. Has had this dx on 3 separate occasions, and is concerned about if there is a cure. Advised GI consult for further evaluation and management. - CONSULT TO GASTROENTEROLOGY 3. Blood in stool - ICD9: 578.1, ICD10: K92.1 Resolved at this point in time, however unclear cause of this-see above regarding GI consult - CONSULT TO GASTROENTEROLOGY 4. Difficulty urinating - ICD9: 788.99, ICD10: R39.198 Will check urine dip.. Possibly related to incomplete bladder emptying, as noted on medical history. Consider uro-TRIAL ATTORNEY referral if issues persist - UA DIP, URINE (POC) 5. Urinary frequency - ICD9: 788.41, ICD10: R35.0 See above - UA DIP, URINE (POC) Follow-up 1-2 weeks when not actively sick, routine visit Prescription instructions reviewed with patient as applicable. Potential red flag symptoms discussed with the patient. Reviewed appropriate action plan to take if red flag symptoms occur. Patient agreeable to treatment plan. documented in this encounter [facility] 07-23-2023 Miscellaneous Notes Pt just had US done. Called and left a voicemail for the Patient to call back and ask for a nurse to receive the providers message. Lori Aldana RN Looks like this was ordered by Dr. Mace. Ultrasound can show different things than CT scan so if he felt it was needed then yes, she should get this done. Pt called in and reports she just had an abdominal and pelvis CT at [facility]. She has a liver US scheduled for 07/23/23 that was ordered in January 2023. Pt is asking if provider thinks she can cancel the US. documented in this encounter [facility] 07-23-2023 History of Present illness Narrative Radiology Service Progress Note PATIENT NAME: Lisette Enamorado DATE OF SERVICE: July 23, 2023 TIME: 9:13 AM PATIENT IDENTITY VERIFICATION [...] PATIENT RELEVANT IMPLANT DATA REVIEWED: Not Applicable PATIENT PRESENTS WITH AN IMPLANTABLE OR ATTACHED DCS ENGINEER: No RADIOLOGY DEPARTMENT: Ultrasound PERIPHERAL IV DATA: Not applicable SIGNED BY: Mattie Benton RDMS July 23, 2023 9:13 AM documented in this encounter [facility] 05-11-2023 History of Present illness Narrative Episode Visit Count: 2 Therapist That Will Accept/Oversee The Plan Of Care: [facility] Start of Care Date: 03/20/23 Onset [...] 05/11/2023 and treatment included: Therapeutic exercise and Self-chcf management. Goals for Episode of Care: created [...] : 904 Session Stop Time : 932 [facility] PT documented in this encounter [facility] 04-26-2023 Miscellaneous Notes Patient has been identified by name and date of : No Patient phones for refill(s): Requested Prescriptions Pending Prescriptions Disp Refills ticagrelor (BRILINTA) 90 mg tablet 60 tablet 3 Sig: Take 1 tablet by mouth two times a day. colestipol (COLESTID) 1 gram tablet 90 tablet 3 Sig: Take 1 tablet by mouth two times a day. Dr. Zarate ezetimibe (ZETIA) 10 mg tablet 90 tablet [...] BP: 01/30/2023 108/68 Please advise. Thank you. Kirit Luong. Patient has been identified by name and date of : Yes Requested Prescriptions Pending Prescriptions Disp Refills ticagrelor (BRILINTA) 90 mg tablet 60 tablet 3 Sig: Take 1 tablet by mouth two times a day. colestipol (COLESTID) 1 gram tablet 90 tablet 3 Sig: Take 1 tablet by mouth two times a day. Dr. Zarate ezetimibe (ZETIA) 10 mg tablet 90 tablet 3 Sig: Take 1 tablet by mouth once daily. Patient asking for 90 days with 3 refills. RX INSTRUCTIONS: Patient aware RX will be sent to pharmacy. No need to notify patient. Vy Yousif documented in this encounter [facility] 03-20-2023 History of Present illness Narrative Episode Visit Count: 1 Therapist That Will Accept/Oversee The Plan Of Care: [facility] Start of Care Date: 03/20/23 Onset [...] Planned: 2 Planned Treatment Interventions: Therapeutic exercise (96456), Manual therapy (26739), Self-chcf management (16007), Patient/Family/Caregiver Education PLAN FOR NEXT VISIT: assign [...] HEART CATH,PERCUTANEOUS 09/26/2012 Cardiac cath, L heart [facility] - chest pain STENT PLACEMENT 03/22, 09/21 [...] Demonstration TREATMENT: PT Treatment Interventions: Therapeutic Exercise, Self-Mcc Management Evaluation Therapeutic Exercise: 1: *kegal holds, [...] program to facilitate proper performance and compliance. Self-Mcc Management: 1: Reviewed pelvic floor anatomy and [...] : 836 Session Stop Time : 926 [facility] PT documented in this encounter [facility] 03-03-2023 Miscellaneous Notes Patient has been identified by name and date of : No Patient phones for refill(s): Requested Prescriptions Pending Prescriptions Disp Refills ticagrelor (BRILINTA) 90 mg tablet 60 tablet 3 Sig: Take 1 tablet by mouth twice daily. colestipol (COLESTID) 1 gram tablet 0 Sig: Take 1 tablet by mouth twice daily. Dr. Zarate ezetimibe (ZETIA) 10 mg tablet Si tablet. Date of last office visit in primary care: 01/18/23 Last 2 Encounter Wt Readings: Date: Wt: 01/30/2023 64.8 kg (142 lb 12.8 oz) 01/18/2023 64.4 kg (142 lb) Previous labs/tests for medication: Not applicable Please advise. Thank you. Kirit Luong Patient has been identified by name [...] 1 tablet by mouth twice daily. Dr. Zarate ezetimibe (ZETIA) 10 mg tablet Si tablet. Please review and advise. Dana Mae documented in this encounter [facility] 02-01-2023 Miscellaneous Notes Patient returned [...] yet. Please advise documented in this encounter [facility] 01-31-2023 Miscellaneous Notes Patient has [...] 06/01/2021 4.280 uU/mL Please advise. Thank you. Kirit Boucher LPN Patient has been identified by [...] patient. Tosin Sparks documented in this encounter [facility] 01-30-2023 Instructions Chanell Givens MD - 01/30/2023 9:54 AM EDT 25 - 30 grams of fiber supplements 8- 10 glasses of free water per day Refer to Physical therapy for pelvic floor exercises documented in this encounter [facility] 01-30-2023 History of Present illness Narrative Lisette Enamorado 1940 REFERRING PHYSICIAN: Darius Mace MD CHIEF COMPLAINT: Rectal Colitis HPI: The patient is a 82 year old female presents with episodes of loose stools, this has been occurring for several weeks. She also noted fecal urgency, some incontinence. She states that immodium helped. She notes hard balls (stool) that pop out. She feels that she can't feel and that it is hard to go. She states that she feels like she lost feeling down there. She notes not colon cancer in her [...] SPEC WHEN PFRMD 08/11/2019 Colonoscopy EGD W/O [facility] SPEC VARICIES INJ 08/08/2021 ESOPHAGOGASTRODUODENOSCOPY TRANSORAL DIAGNOSTIC 08/09/2015 EGD ESOPHAGOGASTRODUODENOSCOPY TRANSORAL DIAGNOSTIC 08/11/2019 EGD LEFT HEART CATH,PERCUTANEOUS 09/26/2012 Cardiac cath, L heart [facility] - chest pain STENT PLACEMENT 03/22, 09/21 [...] 1 tablet by mouth twice daily. Dr. Zarate Aspirin 81 mg Tab Take 1 tablet [...] entered by the nurse and reviewed by ok Nursing Notes: Angy Rodgers RN 01/30/2023 9:36 [...] resp. rate 14, height 157.5 cm (5' 2), weight 64.8 kg (142 lb 12.8 oz), [...] I will refer patient to PT in [place]. The patient acknowledges above. She is encouraged to return to this clinic if any worsening signs/symptoms. I have answered all questions to the patient s satisfaction and the patient has no further questions. I have confirmed and edited as necessary, the PFSH and ROS obtained by others. Consultation requested by Dr. Darius Mace for an opinion regarding patient's fecal [...] of any pertinent laboratory studies/radiological imaging/medical records, [id number] patient care, obtaining oral medical history from the patient in this encounter, performing a medically appropriate examination, counseling and educating the patient/family/caregiver, and ordering and/or scheduling of medications/tests/procedures, and completing appropriate medical documentation. Chanell Givens MD documented in this encounter [facility] 01-30-2023 Nurse Note REVIEW OF [...] ago Last Colonoscopy: 08/08/21 Angy Rodgers RN documented in this encounter [facility] 01-30-2023 History of Present illness [...] IV DATA: Not applicable SIGNED BY: Mattie Benton RDMS January 30, 2023 9:13 AM documented in this encounter [facility] 01-30-2023 History of Present illness [...] IV DATA: Not applicable SIGNED BY: RT Summer(Chelsie) January 30, 2023 8:51 AM documented in this encounter [facility] 01-18-2023 History of Present illness Narrative Patient presents with: ED Follow-up HPI: Patient presents today for office visit for er follow up. HOSPITAL/ER FOLLOW UP: Reason for visit: rectal bleeding Which facility: [facility] Date of visit: 01/11/23 Diagnosis: GI bleeding, [...] 1 tablet by mouth twice daily. Dr. Zarate Aspirin 81 mg Tab Take 1 tablet [...] HEART CATH,PERCUTANEOUS 09/26/2012 Cardiac cath, L heart [facility] - chest pain STENT PLACEMENT 03/22, 09/21 [...] COMP METABOLIC PANEL - LIPID PANEL BASIC Darius Mace MD Follow up with IM team for check up. Or prn. documented in this encounter [facility] 01-09-2023 Miscellaneous Notes Patient reports she is in [place], and 2 days ago had a lot [...] dizzy-resolved quickly. Today feels tired. Is in [place] visiting her son. No fever. 10. : Post menopausal. Protocols used: Rectal Gwevznii-OMELB-XZ documented in this encounter [facility] 12-11-2022 Miscellaneous Notes Call placed to patient and updated on providers continued recommendation for ER treatment. Patient continues to have back pain that radiates to chest with sharp shooting pains when she takes a deep breath. Patient will continue to wait to hear back from oral and maxillofacial surgery resident. She reports that the message stated they [...] further action needed at this time. Clari Ford, RN Noted, agree with ED Patient calls to report left upper back pain that radiates to left chest and left shoulder/arm with sharp pain with deep breaths. Nurse triage completed. Protocol recommends go to ED now. Patient at first agreed and would have someone transport her then said she would contact oral and maxillofacial surgery resident for further advise. Care advice reviewed. Patient [...] or blood in urine. Protocols used: Back Zxoh-NUDJY-XE, Chest Hlfj-KAJKM-PO documented in this encounter [facility] 10-23-2022 History of Present illness Narrative [...] 2022 4:11 PM documented in this encounter [facility] 10-13-2022 History of Present illness Narrative CC: Patient presents with: Recheck: Follow up, pressure in the ears HPI Lisette Enamorado is a 82 year old female who presents today for decreased hearing. Went to food checkers and cashiers supervisor for decrease in hearing thinking her hearing aides needed adjusted, which they did adjust, but per patient the food checkers and cashiers supervisor said her ears were closed and there [...] SPEC WHEN PFRMD 08/11/2019 Colonoscopy EGD W/O [facility] SPEC VARICIES INJ 08/08/2021 ESOPHAGOGASTRODUODENOSCOPY TRANSORAL DIAGNOSTIC 08/09/2015 EGD ESOPHAGOGASTRODUODENOSCOPY TRANSORAL DIAGNOSTIC 08/11/2019 EGD LEFT HEART CATH,PERCUTANEOUS 09/26/2012 Cardiac cath, L heart [facility] - chest pain STENT PLACEMENT 03/22, 09/21 [...] 1 tablet by mouth twice daily. Dr. Zarate Aspirin 81 mg Tab Take 1 tablet [...] occur. Patient agreeable to treatment plan. Jillian Wray APRN.CNP documented in this encounter [facility] 08-19-2022 Miscellaneous Notes Spoke to Paola, given below recommendation, will call if she has any acid reflux s/s. Current medication is helping. Ashley Jackson LPN Left message for return call. Please inform patient that if she has any gi symptoms of reflux then she should be scoped according to the surgeon who scoped her last year , Else it can wait Regards, Lisa Peter MD Dear Dr Morocho Patient had an EGD with you sometime now last year. She was in [place] for holidays around the time of May [...] which is available in care everywhere from [facility]. There is a hiatal hernia with some thickening of the distal esophagus. Clinical correlation is recommended. Adrenal glands normal. Thoracic spine demonstrates degenerative change. Thank you for your help in this matter Regards, Lisa Peter MD documented in this encounter [facility] 08-10-2022 Discharge summary Note Date/Time August 10, 2022 12:33pm [facility] Physical Therapy [facility] [address] [place] [address] / REHABILITATION SERVICES DISCHARGE SUMMARY MR#: [id number] Acct: [id number] Name: LISETTE ENAMORADO Rep #: [id number] : 1940 82 From: Jahaira Estes PT, Cert. MDT Referring Dr.: Dr. Avni Casillas MD Status: REG RCR Insurance: [employer] PPO WPS FOR LIFE It has been my pleasure to treat LISETTE ENAMORADO referred by Dr. Avni Casillas MD, with the diagnosis of CERVICAL STENOSIS for a total of 6 visit(s). Discharge Date: Please see the following information for a summary of their discharge status. Subjective: I HAVE NOT HAD ONE PROBLEM SINCE LAST VISIT. I HAVEN'T BEEN AWAKEND AT NIGHT EITHER. I JUST HOPE IT STAYS THAT WAY. PATIENT REPORTS SHE PROBABLY DOESN'T NEED PT ANYMORE. STATES SHE HAS BEEN STICKING WITH HER EX'S AND PLANS TO CONTINUE. SHE STATES SHE HAS A [employer] PROGRAM THAT SHE PLANS TO RESUME. STATES SHE PULLED OUT BRICKS AND CLEANED OUT WEEDS, REPLACED BRICKS AND SHOVELED DIRT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 coronary artery of [place] without angina pectoris Essential hypertension Unspecified essential hypertension documented in this encounter [facility]* Diagnosis Incontinence of feces, unspecified fecal incontinence type- Primary documented in this encounter [facility]* Diagnosis Liver cyst Other specified disorders of liver documented in this encounter [facility]* Diagnosis Flu-like symptoms- Primary Other general symptoms Colitis Other and unspecified noninfectious gastroenteritis and colitis Blood in stool Difficulty urinating Other symptoms involving urinary system Urinary frequency documented in this encounter [facility]* Diagnosis Acute pain of right shoulder- Primary documented in this encounter [facility]* Diagnosis Acute pain of right shoulder- Primary Injury of right shoulder, subsequent encounter documented in this encounter [facility]* Diagnosis Tick bite of multiple sites- Primary Other, multiple, and unspecified sites, insect bite, nonvenomous, without mention of infection documented in this encounter [facility]* Diagnosis Screening for osteoporosis- Primary Special screening for osteoporosis documented in this encounter [facility]* Diagnosis Screening for osteoporosis- Primary Special screening for osteoporosis [facility]* Diagnosis Diarrhea, unspecified type- Primary Rectal irritation Other specified disorder of rectum and anus [facility] this [facility]* Diagnosis Coronary artery disease involving [place] coronary artery of [place] without angina pectoris documented in this encounter [facility]* Diagnosis Pre-operative examination- Primary Preoperative examination, unspecified Heme positive stool Nonspecific abnormal finding in stool contents Coronary artery disease involving [place] coronary artery of [place] heart without angina pectoris Essential hypertension Unspecified essential hypertension Grade II diastolic dysfunction Hyperlipidemia, unspecified hyperlipidemia type PVD (peripheral vascular disease) ([facility]) Peripheral vascular disease, unspecified Bilateral carotid artery stenosis Occlusion and stenosis of carotid artery without mention of cerebral infarction Sleep apnea, unspecified type CKD (chronic kidney disease) stage 3, GFR 30-59 ml/min ([facility]) Chronic kidney disease, Stage III (moderate) Acquired hypothyroidism Unspecified hypothyroidism Chronic bilateral low back pain with left-sided sciatica Right cervical radiculopathy Brachial neuritis or radiculitis nos Generalized anxiety disorder Sensorineural hearing loss, bilateral Acute pain of right shoulder [facility] this encounter [facility]* Diagnosis Pre-operative examination- Primary Preoperative examination, unspecified Heme positive stool Nonspecific abnormal finding in stool contents Coronary artery disease involving [place] coronary artery of [place] without angina pectoris Essential hypertension Unspecified essential hypertension Grade II diastolic dysfunction Hyperlipidemia, unspecified hyperlipidemia type PVD (peripheral vascular disease) (HCC) Peripheral vascular disease, unspecified Bilateral carotid artery stenosis Occlusion and stenosis of carotid artery without mention of cerebral infarction Sleep apnea, unspecified type CKD (chronic kidney disease) stage 3, GFR 30-59 ml/min ([facility]) Chronic kidney disease, Stage III (moderate) Acquired hypothyroidism Unspecified hypothyroidism Chronic bilateral low back pain with left-sided sciatica Right cervical radiculopathy Brachial neuritis or radiculitis nos Generalized anxiety disorder Sensorineural hearing loss, bilateral Screening for osteoporosis- Primary Special screening for osteoporosis [facility] this [facility]* Diagnosis Pre-operative examination- Primary Preoperative examination, unspecified Heme positive stool Nonspecific abnormal finding in stool contents Coronary artery disease involving [place] coronary artery of [place] heart without angina pectoris Essential hypertension Unspecified essential hypertension Grade II diastolic dysfunction Hyperlipidemia, unspecified hyperlipidemia type PVD (peripheral vascular disease) ([facility]) Peripheral vascular disease, unspecified Bilateral carotid artery stenosis Occlusion and stenosis of carotid artery without mention of cerebral infarction Sleep apnea, unspecified type CKD (chronic kidney disease) stage 3, GFR 30-59 ml/min ([facility]) Chronic kidney disease, Stage III (moderate) Acquired hypothyroidism Unspecified hypothyroidism Chronic bilateral low back pain with left-sided sciatica Right cervical radiculopathy Brachial neuritis or radiculitis nos Generalized anxiety disorder Sensorineural hearing loss, bilateral Acute constipation- Primary Unspecified constipation LLQ abdominal pain Abdominal pain, left lower quadrant Left lower quadrant abdominal pain Skin rash Rash and other nonspecific skin eruption documented in this encounter [facility]* Diagnosis Pre-operative examination- Primary Preoperative examination, unspecified Heme positive stool Nonspecific abnormal finding in stool contents Coronary artery disease involving [place] coronary artery of [place] without angina pectoris Essential hypertension Unspecified essential hypertension Grade II diastolic dysfunction Hyperlipidemia, unspecified hyperlipidemia type PVD (peripheral vascular disease) ([facility]) Peripheral vascular disease, unspecified Bilateral carotid artery stenosis Occlusion and stenosis of carotid artery without mention of cerebral infarction Sleep apnea, unspecified type CKD (chronic kidney disease) stage 3, GFR 30-59 ml/min ([facility]) Chronic kidney disease, Stage III (moderate) Acquired hypothyroidism Unspecified hypothyroidism Chronic bilateral low back pain with left-sided sciatica Right cervical radiculopathy Brachial neuritis or radiculitis nos Generalized anxiety disorder Sensorineural hearing loss, bilateral Numbness and tingling of right arm Disturbance of skin sensation Acute pain of right shoulder [facility] this encounter [facility]* Diagnosis Pre-operative examination- Primary Preoperative examination, unspecified Heme positive stool Nonspecific abnormal finding in stool contents Coronary artery disease involving [place] coronary artery of [place] without angina pectoris Essential hypertension Unspecified essential hypertension Grade II diastolic dysfunction Hyperlipidemia, unspecified hyperlipidemia type PVD (peripheral vascular disease) ([facility]) Peripheral vascular disease, unspecified Bilateral carotid artery stenosis Occlusion and stenosis of carotid artery without mention of cerebral infarction Sleep apnea, unspecified type CKD (chronic kidney disease) stage 3, GFR 30-59 ml/min ([facility]) Chronic kidney disease, Stage III (moderate) Acquired hypothyroidism Unspecified hypothyroidism Chronic bilateral low back pain with left-sided sciatica Right cervical radiculopathy Brachial neuritis or radiculitis nos Generalized anxiety disorder Sensorineural hearing loss, bilateral Lumbar radiculopathy Thoracic or lumbosacral neuritis or radiculitis, unspecified documented in this encounter [facility]* Diagnosis Pre-operative examination- Primary Preoperative examination, unspecified Heme positive stool Nonspecific abnormal finding in stool contents Coronary artery disease involving [place] coronary artery of [place] without angina pectoris Essential hypertension Unspecified essential hypertension Grade II diastolic dysfunction Hyperlipidemia, unspecified hyperlipidemia type PVD (peripheral vascular disease) ([facility]) Peripheral vascular disease, unspecified Bilateral carotid artery stenosis Occlusion and stenosis of carotid artery without mention of cerebral infarction Sleep apnea, unspecified type CKD (chronic kidney disease) stage 3, GFR 30-59 ml/min ([facility]) Chronic kidney disease, Stage III (moderate) Acquired hypothyroidism Unspecified hypothyroidism Chronic bilateral low back pain with left-sided sciatica Right cervical radiculopathy Brachial neuritis or radiculitis nos Generalized anxiety disorder Sensorineural hearing loss, bilateral Coronary artery disease involving [place] coronary artery of [place] without angina pectoris documented in this encounter [facility]* Diagnosis Pre-operative examination- Primary Preoperative examination, unspecified Heme positive stool Nonspecific abnormal finding in stool contents Coronary artery disease involving [place] coronary artery of [place] heart without angina pectoris Essential hypertension Unspecified essential hypertension Grade II diastolic dysfunction Hyperlipidemia, unspecified hyperlipidemia type PVD (peripheral vascular disease) ([facility]) Peripheral vascular disease, unspecified Bilateral carotid artery stenosis Occlusion and stenosis of carotid artery without mention of cerebral infarction Sleep apnea, unspecified type CKD (chronic kidney disease) stage 3, GFR 30-59 ml/min ([facility]) Chronic kidney disease, Stage III (moderate) Acquired hypothyroidism Unspecified hypothyroidism Chronic bilateral low back pain with left-sided sciatica Right cervical radiculopathy Brachial neuritis or radiculitis nos Generalized anxiety disorder Sensorineural hearing loss, bilateral Situational depression- Primary Adjustment disorder with depressed mood documented [facility] this encounter [facility]* Diagnosis Pre-operative examination- Primary Preoperative examination, unspecified Heme positive stool Nonspecific abnormal finding in stool contents Coronary artery disease involving [place] coronary artery of [place] heart without angina pectoris Essential hypertension Unspecified essential hypertension Grade II diastolic dysfunction Hyperlipidemia, unspecified hyperlipidemia type PVD (peripheral vascular disease) ([facility]) Peripheral vascular disease, unspecified Bilateral carotid artery stenosis Occlusion and stenosis of carotid artery without mention of cerebral infarction Sleep apnea, unspecified type CKD (chronic kidney disease) stage 3, GFR 30-59 ml/min ([facility]) Chronic kidney disease, Stage III (moderate) Acquired hypothyroidism Unspecified hypothyroidism Chronic bilateral low back pain with left-sided sciatica Right cervical radiculopathy Brachial neuritis or radiculitis nos Generalized anxiety disorder Sensorineural hearing loss, bilateral Coronary artery disease involving [place] coronary artery of [place] without angina pectoris documented [facility] this encounter [facility]* Diagnosis Pre-operative examination- Primary Preoperative examination, unspecified Heme positive stool Nonspecific abnormal finding in stool contents Coronary artery disease involving [place] coronary artery of [place] heart without angina pectoris Essential hypertension Unspecified essential hypertension Grade II diastolic dysfunction Hyperlipidemia, unspecified hyperlipidemia type PVD (peripheral vascular disease) ([facility]) Peripheral vascular disease, unspecified Bilateral carotid artery stenosis Occlusion and stenosis of carotid artery without mention of cerebral infarction Sleep apnea, unspecified type CKD (chronic kidney disease) stage 3, GFR 30-59 ml/min ([facility]) Chronic kidney disease, Stage III (moderate) Acquired hypothyroidism Unspecified hypothyroidism Chronic bilateral low back pain with left-sided sciatica Right cervical radiculopathy Brachial neuritis or radiculitis nos Generalized anxiety disorder Sensorineural hearing loss, bilateral Left leg pain Pain in limb Leg cramp Cramp of limb documented [facility] this encounter [facility]* Diagnosis Pre-operative examination- Primary Preoperative examination, unspecified Heme positive stool Nonspecific abnormal finding in stool contents Coronary artery disease involving [place] coronary artery of [place] heart without angina pectoris Essential hypertension Unspecified essential hypertension Grade II diastolic dysfunction Hyperlipidemia, unspecified hyperlipidemia type PVD (peripheral vascular disease) ([facility]) Peripheral vascular disease, unspecified Bilateral carotid artery stenosis Occlusion and stenosis of carotid artery without mention of cerebral infarction Sleep apnea, unspecified type CKD (chronic kidney disease) stage 3, GFR 30-59 ml/min ([facility]) Chronic kidney disease, Stage III (moderate) Acquired hypothyroidism Unspecified hypothyroidism Chronic bilateral low back pain with left-sided sciatica Right cervical radiculopathy Brachial neuritis or radiculitis nos Generalized anxiety disorder Sensorineural hearing loss, bilateral Left leg pain- Primary Pain in limb Leg cramp Cramp of limb Left leg pain Pain in limb Leg cramp Cramp of limb documented [facility] this encounter [facility]* Diagnosis Pre-operative examination- Primary Preoperative examination, unspecified Heme positive stool Nonspecific abnormal finding in stool contents Coronary artery disease involving [place] [place] artery [place] heart without angina pectoris Essential hypertension Unspecified essential hypertension Grade II diastolic dysfunction Hyperlipidemia, unspecified hyperlipidemia type PVD (peripheral vascular disease) ([facility]) Peripheral vascular disease, unspecified Bilateral carotid artery stenosis Occlusion and stenosis of carotid artery without mention of cerebral infarction Sleep apnea, unspecified type CKD (chronic kidney disease) stage 3, GFR 30-59 ml/min ([facility]) Chronic kidney disease, Stage III (moderate) Acquired hypothyroidism Unspecified hypothyroidism Chronic bilateral low back pain with left-sided sciatica Right cervical radiculopathy Brachial neuritis or radiculitis nos Generalized anxiety disorder Sensorineural hearing loss, bilateral Left leg pain Pain in limb [facility] Diagnosis Pre-operative examination- Primary Preoperative examination, unspecified Heme positive stool Nonspecific abnormal finding in stool contents Coronary artery disease involving [place] coronary artery of [place] heart without angina pectoris Essential hypertension Unspecified essential hypertension Grade II diastolic dysfunction Hyperlipidemia, unspecified hyperlipidemia type PVD (peripheral vascular disease) ([facility]) Peripheral vascular disease, unspecified Bilateral carotid artery stenosis Occlusion and stenosis of carotid artery without mention of cerebral infarction Sleep apnea, unspecified type CKD (chronic kidney disease) stage 3, GFR 30-59 ml/min ([facility]) Chronic kidney disease, Stage III (moderate) Acquired hypothyroidism Unspecified hypothyroidism Chronic bilateral low back pain with left-sided sciatica Right cervical radiculopathy Brachial neuritis or radiculitis nos Generalized anxiety disorder Sensorineural hearing loss, bilateral Acute cough- Primary Body aches Generalized pain Nausea Nausea alone [facility] Diagnosis Pre-operative examination- Primary Preoperative examination, unspecified Heme positive stool Nonspecific abnormal finding in stool contents Coronary artery disease involving [place] coronary artery of [place] heart without angina pectoris Essential hypertension Unspecified essential hypertension Grade II diastolic dysfunction Hyperlipidemia, unspecified hyperlipidemia type PVD (peripheral vascular disease) ([facility]) Peripheral vascular disease, unspecified Bilateral carotid artery stenosis Occlusion and stenosis of carotid artery without mention of cerebral infarction Sleep apnea, unspecified type CKD (chronic kidney disease) stage 3, GFR 30-59 ml/min ([facility]) Chronic kidney disease, Stage III (moderate) Acquired hypothyroidism Unspecified hypothyroidism Chronic bilateral low back pain with left-sided sciatica Right cervical radiculopathy Brachial neuritis or radiculitis nos Generalized anxiety disorder Sensorineural hearing loss, bilateral Acquired hypothyroidism- Primary Unspecified hypothyroidism Hyperlipidemia, unspecified hyperlipidemia type Flu-like symptoms Other general symptoms [facility] Diagnosis Pre-operative examination- Primary Preoperative examination, unspecified Heme positive stool Nonspecific abnormal finding in stool contents Coronary artery disease involving [place] coronary artery of [place] heart without angina pectoris Essential hypertension Unspecified essential hypertension Grade II diastolic dysfunction Hyperlipidemia, unspecified hyperlipidemia type PVD (peripheral vascular disease) Peripheral vascular disease, unspecified Bilateral carotid artery stenosis Occlusion and stenosis of carotid artery without mention of cerebral infarction Sleep apnea, unspecified type CKD (chronic kidney disease) stage 3, GFR 30-59 ml/min (HCC) Chronic kidney disease, Stage III (moderate) Acquired hypothyroidism Unspecified hypothyroidism Chronic bilateral low back pain with left-sided sciatica Right cervical radiculopathy Brachial neuritis or radiculitis nos Generalized anxiety disorder Sensorineural hearing loss, bilateral Body aches- Primary Generalized pain Acute cough [facility] Diagnosis Pre-operative examination- Primary Preoperative examination, unspecified Heme positive stool Nonspecific abnormal finding in stool contents Coronary artery disease involving [place] coronary artery of [place] heart without angina pectoris Essential hypertension Unspecified essential hypertension Grade II diastolic dysfunction Hyperlipidemia, unspecified hyperlipidemia type PVD (peripheral vascular disease) Peripheral vascular disease, unspecified Bilateral carotid artery stenosis Occlusion and stenosis of carotid artery without mention of cerebral infarction Sleep apnea, unspecified type CKD (chronic kidney disease) stage 3, GFR 30-59 ml/min (HCC) Chronic kidney disease, Stage III (moderate) Acquired hypothyroidism Unspecified hypothyroidism Chronic bilateral low back pain with left-sided sciatica Right cervical radiculopathy Brachial neuritis or radiculitis nos Generalized anxiety disorder Sensorineural hearing loss, bilateral Coronary artery disease involving [place] coronary artery of [place] heart without angina pectoris [facility] Diagnosis Pre-operative examination- Primary Preoperative examination, unspecified Heme positive stool Nonspecific abnormal finding in stool contents Coronary artery disease involving [place] coronary artery of [place] heart without angina pectoris Essential hypertension Unspecified essential hypertension Grade II diastolic dysfunction Hyperlipidemia, unspecified hyperlipidemia type PVD (peripheral vascular disease) Peripheral vascular disease, unspecified Bilateral carotid artery stenosis Occlusion and stenosis of carotid artery without mention of cerebral infarction Sleep apnea, unspecified type CKD (chronic kidney disease) stage 3, GFR 30-59 ml/min (HCC) Chronic kidney disease, Stage III (moderate) Acquired hypothyroidism Unspecified hypothyroidism Chronic bilateral low back pain with left-sided sciatica Right cervical radiculopathy Brachial neuritis or radiculitis nos Generalized anxiety disorder Sensorineural hearing loss, bilateral Hammer toes of both feet- Primary Bilateral bunions Bunion Grade II diastolic dysfunction Coronary artery disease involving [place] coronary artery of [place] heart without angina pectoris [facility] Diagnosis Pre-operative examination- Primary Preoperative examination, unspecified Heme positive stool Nonspecific abnormal finding in stool contents Coronary artery disease involving [place] coronary artery of [place] heart without angina pectoris Essential hypertension Unspecified essential hypertension Grade II diastolic dysfunction Hyperlipidemia, unspecified hyperlipidemia type PVD (peripheral vascular disease) Peripheral vascular disease, unspecified Bilateral carotid artery stenosis Occlusion and stenosis of carotid artery without mention of cerebral infarction Sleep apnea, unspecified type CKD (chronic kidney disease) stage 3, GFR 30-59 ml/min (HCC) Chronic kidney disease, Stage III (moderate) Acquired hypothyroidism Unspecified hypothyroidism Chronic bilateral low back pain with left-sided sciatica Right cervical radiculopathy Brachial neuritis or radiculitis nos Generalized anxiety disorder Sensorineural hearing loss, bilateral Acquired hypothyroidism- Primary Unspecified hypothyroidism [facility] Diagnosis Pre-operative examination- Primary Preoperative examination, unspecified Heme positive stool Nonspecific abnormal finding in stool contents Coronary artery disease involving [place] coronary artery of [place] heart without angina pectoris Essential hypertension Unspecified essential hypertension Grade II diastolic dysfunction Hyperlipidemia, unspecified hyperlipidemia type PVD (peripheral vascular disease) Peripheral vascular disease, unspecified Bilateral carotid artery stenosis Occlusion and stenosis of carotid artery without mention of cerebral infarction Sleep apnea, unspecified type CKD (chronic kidney disease) stage 3, GFR 30-59 ml/min (HCC) Chronic kidney disease, Stage III (moderate) Acquired hypothyroidism Unspecified hypothyroidism Chronic bilateral low back pain with left-sided sciatica Right cervical radiculopathy Brachial neuritis or radiculitis nos Generalized anxiety disorder Sensorineural hearing loss, bilateral Bilateral foot pain Pain in limb [facility]* Diagnosis Pre-operative examination- Primary Preoperative examination, unspecified Heme positive stool Nonspecific abnormal finding in stool contents Coronary artery disease involving [place] coronary artery of [place] heart without angina pectoris Essential hypertension Unspecified essential hypertension Grade II diastolic dysfunction Hyperlipidemia, unspecified hyperlipidemia type PVD (peripheral vascular disease) Peripheral vascular disease, unspecified Bilateral carotid artery stenosis Occlusion and stenosis of carotid artery without mention of cerebral infarction Sleep apnea, unspecified type CKD (chronic kidney disease) stage 3, GFR 30-59 ml/min (HCC) Chronic kidney disease, Stage III (moderate) Acquired hypothyroidism Unspecified hypothyroidism Chronic bilateral low back pain with left-sided sciatica Right cervical radiculopathy Brachial neuritis or radiculitis nos Generalized anxiety disorder Sensorineural hearing loss, bilateral Onychomycosis- Primary Dermatophytosis of nail Hammer toes of both feet Bilateral bunions Bunion Diminished pulses in lower extremity Other symptoms involving cardiovascular system Pain in toe of left foot Pain in limb Pain in toe of right foot Pain in limb [facility]* Diagnosis Pre-operative examination- Primary Preoperative examination, unspecified Heme positive stool Nonspecific abnormal finding in stool contents Coronary artery disease involving [place] coronary artery of [place] heart without angina pectoris Essential hypertension Unspecified essential hypertension Grade II diastolic dysfunction Hyperlipidemia, unspecified hyperlipidemia type PVD (peripheral vascular disease) Peripheral vascular disease, unspecified Bilateral carotid artery stenosis Occlusion and stenosis of carotid artery without mention of cerebral infarction Sleep apnea, unspecified type CKD (chronic kidney disease) stage 3, GFR 30-59 ml/min ([facility]) Chronic kidney disease, Stage III (moderate) Acquired hypothyroidism Unspecified hypothyroidism Chronic bilateral low back pain with left-sided sciatica Right cervical radiculopathy Brachial neuritis or radiculitis nos Generalized anxiety disorder Sensorineural hearing loss, bilateral Pulmonary nodule- Primary Solitary pulmonary nodule Chronic cough Cough 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) Essential hypertension Unspecified essential hypertension Diarrhea, unspecified type Hypothyroidism due to medication [facility]* Diagnosis Pre-operative examination- Primary Preoperative examination, unspecified Heme positive stool Nonspecific abnormal finding in stool contents Coronary artery disease involving [place] coronary artery of [place] heart without angina pectoris Essential hypertension Unspecified essential hypertension Grade II diastolic dysfunction Hyperlipidemia, unspecified hyperlipidemia type PVD (peripheral vascular disease) Peripheral vascular disease, unspecified Bilateral carotid artery stenosis Occlusion and stenosis of carotid artery without mention of cerebral infarction Sleep apnea, unspecified type CKD (chronic kidney disease) stage 3, GFR 30-59 ml/min (HCC) Chronic kidney disease, Stage III (moderate) Acquired hypothyroidism Unspecified hypothyroidism Chronic bilateral low back pain with left-sided sciatica Right cervical radiculopathy Brachial neuritis or radiculitis nos Generalized anxiety disorder Sensorineural hearing loss, bilateral Pulmonary nodule Solitary pulmonary nodule documented in this encounter [facility] for referral (narrative)* Outpatient Procedure (Routine) - Authorized Specialty Diagnoses / Procedures Referred By Contac t Referred To Contact [facility] Diagnoses Numbness and tingling of right arm Procedures EMG(NEURO/NI) NERVE CONDUCTION STUDIES 9-10 STUDIES Jillian Wray APRN.EXHIBIT SPECIALIST [address] [place] [address] [facility] [place] [address] [place] [address] Referral ID Status Reason Start Date Expiration Date Visits Requested Visits Authorized [id number] Authorized Auto-Generat ed Referral 03/17/2022 03/17/2023 1 1 * Diagnostic Procedure Only (Routine) - Closed Specialty Diagnoses / Procedures Referred By Contac t Referred To Contact XR IMAGING Diagnoses Numbness and tingling of right arm Acute pain of right shoulder Procedures XR SHOULDER [id number] AP/TRUE AP RIGHT RADEX SHOULDER COMPLETE MINIMUM 2 VIEWS Jillian Wray APRN.EXHIBIT SPECIALIST [address] [place] [address] [facility] Referral ID Status Reason Start Date Expiration Date V isits Requested Visits Authorized [id number] Closed Auto-Generate d Referral 03/17/2022 04/16/2023 1 1 * Diagnostic Procedure Only (Routine) - Closed Specialty Diagnoses / Procedures Referred By Contac t Referred To Contact XR IMAGING Diagnoses Numbness and tingling of right arm Acute pain of right shoulder Procedures XR CERV GENERAL 2V AP/LAT RADEX SPINE CERVICAL 2 OR 3 VIEWS Jillian Wray APRN.EXHIBIT SPECIALIST [address] [place] [address] [facility] Referral ID Status Reason Start Date Expiration Date V isits Requested Visits Authorized [id number] Closed Auto-Generate d Referral 03/17/2022 04/16/2023 1 1 [facility] for referral (narrative)* Outpatient Procedure (Routine) - Pending Review Specialty Diagnoses / Procedures Referred By Contac t Referred To Contact [facility] Diagnoses Muscle cramps PVD (peripheral vascular disease) ([facility]) Procedures PVR ANK PRESS DIONNE VAS LAB NON-INVAS PHYSIOLOGIC STD EXTREMITY ART 2 Jillian Redding APRN.CNP [address] [place] [address] [facility] [place] [address] [place] [address] Referral ID Status Reason Start Date Expiration Date Visits Requested Visits Authorized [id number] Pending Review Auto-Generat ed Referral 10/13/2022 10/13/2023 1 1 [facility] for referral (narrative)* Diagnostic Procedure Only (Routine) - Authorized Specialty Diagnoses / Procedures Referred By Contac t Referred To Contact US IMAGING Diagnoses Kidney cyst, acquired Procedures US KIDNEY/BLADDER US RETROPERITONEAL REAL TIME W/IMAGE COMPLETE Darius Mace MD [address] [place] [id number] Us Imaging Referral ID Status Reason Start Date Expiration Date Visits Requested Visits Authorized [id number] Authorized Auto-Generat ed Referral 01/18/2023 02/17/2024 1 1 * Diagnostic Procedure Only (Routine) - Authorized Specialty Diagnoses / Procedures Referred By Contac t Referred To Contact US IMAGING Diagnoses Liver cyst Procedures US ABD RIGHT UPPER QUADRANT US ABDOMINAL REAL TIME W/IMAGE LIMITED Darius Mace MD [facility] [place] [address] Us Imaging Referral ID Status Reason Start Date Expiration Date Visits Requested Visits Authorized [id number] Authorized Auto-Generat ed Referral 07/21/2023 02/17/2024 1 1 * Consult, Test, Treat (Routine) - Pending Review Specialty Diagnoses / Procedures Referred By Contac t Referred To Contact General Surgery Diagnoses Colitis Rectal bleeding Procedures CONSULT TO GENERAL SURGERY OFFICE/OUTPATIENT [facility] MDM 60-74 MINUTES Darius Mace MD [address] [place] [address] Referral ID Status Reason Start Date Expiration Date Visits Requested Visits Authorized [id number] Pending Review PCP Requested Referral 01/18/2023 01/18/2024 1 1 * MRI/CT (Routine) - Authorized Specialty Diagnoses / Procedures Referred By Marlon t Referred To Contact CT IMAGING Diagnoses Lung nodules Procedures CT CHEST WO IVCON DIAGNOSTIC COMPUTED TOMOGRAPHY THORAX W/O CNTRST Darius Mace MD [address] [place] [address] Ct Imaging Referral ID Status Reason Start Date Expiration Date Visits Requested Visits Authorized [id number] Authorized Auto-Generat ed Referral 01/18/2023 02/17/2024 1 1 [facility] for referral (narrative)* Diagnostic Procedure Only (Routine) - Closed Specialty Diagnoses / Procedures Referred By Marlon t Referred To Contact US IMAGING Diagnoses Kidney cyst, acquired Procedures US KIDNEY/BLADDER US RETROPERITONEAL REAL TIME W/IMAGE COMPLETE Darius Mace MD [address] [place] [address] [place] [address] Referral ID Status Reason Start Date Expiration Date V isits Requested Visits Authorized [id number] Closed Auto-Generate d Referral 01/18/2023 02/17/2024 1 1 [facility] for referral (narrative)* Diagnostic Procedure Only (Routine) - Closed Specialty Diagnoses / Procedures Referred By Marlon t Referred To Contact US IMAGING Diagnoses Liver cyst Procedures US ABD RIGHT UPPER QUADRANT US ABDOMINAL REAL TIME W/IMAGE LIMITED Darius Mace MD [address] [place] [address] [place] [address] Referral ID Status Reason Start Date Expiration Date V isits Requested Visits Authorized [id number] Closed Auto-Generate d Referral 07/21/2023 02/17/2024 1 1 [facility] for referral (narrative)* Diagnostic Procedure Only (Urgent) - Closed Specialty Diagnoses / Procedures Referred By Contac t Referred To Contact XR IMAGING Diagnoses Acute pain of right shoulder Procedures XR SHOULDER GENERAL 3V OR MORE AP/TRUE AP/OTHER RIGHT RADEX SHOULDER COMPLETE MINIMUM 2 VIEWS Barbara Green APRN.EXHIBIT SPECIALIST [address] [id number] [place] [address] Referral ID Status Reason Start Date Expiration Date V isits Requested Visits Authorized [id number] Closed Auto-Generate d Referral 07/31/2023 08/29/2024 1 1 [facility] for referral (narrative)* Diagnostic Procedure Only (Urgent) - Closed Specialty Diagnoses / Procedures Referred By Contac t Referred To Contact XR IMAGING Diagnoses Acute pain of right shoulder Procedures XR SHOULDER GENERAL 3V OR MORE AP/TRUE AP/OTHER RIGHT RADEX SHOULDER COMPLETE MINIMUM 2 VIEWS Barbara Green APRN.EXHIBIT SPECIALIST [address] [id number] [place] [address] Referral ID Status Reason Start Date Expiration Date V isits Requested Visits Authorized [id number] Closed Auto-Generate d Referral 07/31/2023 08/29/2024 1 1 [facility] for referral (narrative)* Diagnostic Procedure Only (Routine) - New Request Specialty Diagnoses / Procedures Referred By Contac t Referred To Contact XR IMAGING Diagnoses Screening for osteoporosis Procedures DXA-AXIAL SKELETON DXA BONE DENSITY STUDY 1/> SITES AXIAL Tho Muñoz MD [address] [facility] [place] [address] [place] [address] Referral ID Status Reason Start Date Expiration Date Visits Requested Visits Authorized [id number] New Request Auto-Generat ed Referral 02/28/2024 03/29/2025 1 1 [facility] for referral (narrative)* Diagnostic Procedure Only (Routine) - Closed Specialty Diagnoses / Procedures Referred By Contac t Referred To Contact XR IMAGING Diagnoses Numbness and tingling of right arm Acute pain of right shoulder Procedures XR SHOULDER [id number] AP/TRUE AP RIGHT RADEX SHOULDER COMPLETE MINIMUM 2 VIEWS Jillian Wray APRN.EXHIBIT SPECIALIST [address] [place] [address] [place] [address] Referral ID Status Reason Start Date Expiration Date V isits Requested Visits Authorized [id number] Closed Auto-Generate d Referral 03/17/2022 04/16/2023 1 1 * Diagnostic Procedure Only (Routine) - Closed Specialty Diagnoses / Procedures Referred By Contac t Referred To Contact XR IMAGING Diagnoses Numbness and tingling of right arm Acute pain of right shoulder Procedures XR CERV GENERAL 2V AP/LAT RADEX SPINE CERVICAL 2 OR 3 VIEWS Jillian Wray APRN.EXHIBIT SPECIALIST [address] [place] [address] [place] [address] Referral ID Status Reason Start Date Expiration Date V isits Requested Visits Authorized [id number] Closed Auto-Generate d Referral 03/17/2022 04/16/2023 1 1 [facility] for referral (narrative)* Diagnostic Procedure Only (Routine) - Closed Specialty Diagnoses / Procedures Referred By Contac t Referred To Contact XR IMAGING Diagnoses Lumbar radiculopathy Procedures XR LUMBAR GENERAL 3V AP/LAT/L5-S1 RADEX SPINE LUMBOSACRAL 2/3 VIEWS Lisa Peter MD [address] [place] [address] [place] [address] Referral ID Status Reason Start Date Expiration Date V isits Requested Visits Authorized [id number] Closed Auto-Generate d Referral 07/21/2021 08/20/2022 1 1 * Diagnostic Procedure Only (Routine) - Closed Specialty Diagnoses / Procedures Referred By Contac t Referred To Contact XR IMAGING Diagnoses Lumbar radiculopathy Procedures XR HIP GENERAL 3V PELV/AP/LAT LEFT RADEX HIP UNILATERAL WITH PELVIS 2-3 VIEWS Lisa Peter MD [address] [place] [address] [place] [address] Referral ID Status Reason Start Date Expiration Date V isits Requested Visits Authorized [id number] Closed Auto-Generate d Referral 07/21/2021 08/20/2022 1 1 [facility] for referral (narrative)* Diagnostic Procedure Only (Routine) - Closed Specialty Diagnoses / Procedures Referred By Contac t Referred To Contact XR IMAGING Diagnoses Left leg pain Leg cramp Procedures XR TIBIA FIBULA 2V AP/LAT LEFT RADIOLOGIC EXAMINATION TIBIA & FIBULA 2 VIEWS Eric Lockett PA-C [address] [place] [address] [place] [address] Referral ID Status Reason Start Date Expiration Date V isits Requested Visits Authorized [id number] Closed Auto-Generate d Referral 06/24/2024 07/24/2025 1 1 [facility] for referral (narrative)* Diagnostic Procedure Only (Routine) - Closed Specialty Diagnoses / Procedures Referred By Contac t Referred To Contact US IMAGING Diagnoses Left leg pain Procedures US DVT LOWER LEFT DUP-SCAN XTR VEINS UNILATERAL/LIMITED STUDY Eric Lockett PA-C [address] [place] [address] [place] [address] Referral ID Status Reason Start Date Expiration Date V isits Requested Visits Authorized [id number] Closed Auto-Generate d Referral 06/30/2024 07/30/2025 1 1 [facility] for visit Narrative* Diagnostic Procedure Only (Urgent) - Closed Specialty Diagnoses / Procedures Referred By Contac t Referred To Contact XR IMAGING Diagnoses Acute pain of right shoulder Procedures XR SHOULDER GENERAL 3V OR MORE AP/TRUE AP/OTHER RIGHT RADEX SHOULDER COMPLETE MINIMUM 2 VIEWS Barbara Green, EVENTS INTERN.EXHIBIT SPECIALIST [address] [place] [address] [place] [address] Referral ID Status Reason Start Date Expiration Date V isits Requested Visits Authorized [id number] Closed Auto-Generate d Referral 07/31/2023 08/29/2024 1 1 [facility] for visit Narrative* Diagnostic Procedure Only (Routine) - Closed Specialty Diagnoses / Procedures Referred By Contac t Referred To Contact XR IMAGING Diagnoses Numbness and tingling of right arm Acute pain of right shoulder Procedures XR SHOULDER [id number] AP/TRUE AP RIGHT RADEX SHOULDER COMPLETE MINIMUM 2 VIEWS Jillian Wray EVENTS INTERN.EXHIBIT SPECIALIST [address] [place] [address] [place] [address] Referral ID Status Reason Start Date Expiration Date V isits Requested Visits Authorized [id number] Closed Auto-Generate d Referral 03/17/2022 04/16/2023 1 1 [facility] for visit Narrative* Diagnostic Procedure Only (Routine) - Closed Specialty Diagnoses / Procedures Referred By Contac t Referred To Contact XR IMAGING Diagnoses Lumbar radiculopathy Procedures XR LUMBAR GENERAL 3V AP/LAT/L5-S1 RADEX SPINE LUMBOSACRAL 2/3 VIEWS Lisa Peter MD [address] [place] [address] [place] [address] Referral ID Status Reason Start Date Expiration Date V isits Requested Visits Authorized [id number] Closed Auto-Generate d Referral 07/21/2021 08/20/2022 1 1 [facility] for visit Narrative* Diagnostic Procedure Only (Routine) - Closed Specialty Diagnoses / Procedures Referred By Contac t Referred To Contact XR IMAGING Diagnoses Left leg pain Leg cramp Procedures XR TIBIA FIBULA 2V AP/LAT LEFT RADIOLOGIC EXAMINATION TIBIA & FIBULA 2 VIEWS Eric Lockett PA-C [address] [place] [address] [place] [address] Referral ID Status Reason Start Date Expiration Date V isits Requested Visits Authorized [id number] Closed Auto-Generate d Referral 06/24/2024 07/24/2025 1 [facility] Diagnostic Procedure Only (Routine) - Closed Specialty Diagnoses / Procedures Referred By Contac t Referred To Contact XR IMAGING Diagnoses Bilateral foot pain Procedures XR FOOT GENERAL 3V AP/LAT/OBL BILATERAL RADEX FOOT COMPLETE MINIMUM 3 VIEWS Rob Rai [address] [place] [address] Phone: tel: fax: [place] [address] Referral ID Status Reason Start Date Expiration Date V isits Requested Visits Authorized [id number] Closed Auto-Generate d Referral 10/22/2024 11/21/2025 1 1 [facility] Summary Purpose Family History No Family History Records Found Relationship Condition Age at Onset Recorded Date/T rohan mother Coronary artery disease Unknown grandmother Coronary artery disease Unknown Advance Directives No Advanced Directives Records FoundDocuments on File Type Date Recorded Patient Resource Coordinator Expl anation Advance Directive(s) 08/08/2021 9:17 AM Advance Directive(s) 08/11/2019 11:45 AM Advance Directive(s) 07/18/2019 2:00 PM Advance Directive(s) 08/09/2015 12:09 PM Advance Directive(s) 07/22/2015 3:45 PM Advance Directive(s) 06/24/2008 8:55 AM Advance Directive Response Recorded Date/ Time Advance Directives Yes August 13 10:33am Living Will Yes November 29, 2021 8:37am Power of Blower Feeder Dyed Raw Stock No November 29 8:37am Documents on File Type Date Recorded Patient Resource Coordinator Expl anation Advance Directive(s) 06/24/2008 8:55 AM Documents on File Type Date Recorded Patient Resource Coordinator Expl anation Advance Directive(s) 06/24/2008 8:55 AM Advance Directive Response Recorded Date/ Time Advance Directives Yes August 13 9:33am Living Will Yes November 29, 2021 7:37am Power of Blower Feeder Dyed Raw Stock No November 29 7:37am Advance Directive Response Recorded Date/ Time Advance Directives Yes August 13 9:33am Living Will No July 13 5:33pm Power of Blower Feeder Dyed Raw Stock No July 13, 2023 5:33pm Chief Complaint and Reason for Visit Chief Complaint right arm injury Chief Complaint 1 Y FU EORDERS//REDRAW Reason for Visit [id number] Essential (primary) hypertension Pure hypercholesterolemia Chief Complaint 1 Y FU EORDERS//REDRAW CERVICAL STENOSIS. RX HERE Reason for Visit [id number] Essential (primary) hypertension Pure hypercholesterolemia Chief Complaint 3 m fu E ORDERS CAROTID ARTERY DISEASE Amb Documentation Reason for Visit Diminished pulse Essential (primary) hypertension Pure hypercholesterolemia Stenosis of left carotid artery History of coronary artery stent placement Chief Complaint 3 m fu E ORDERS CAROTID ARTERY DISEASE Amb Documentation DISCUSS RESULTS INT LABS OCCLUSION OF STENOSIS OF LEFT CAROTID ARTERY Reason for Visit Diminished pulse Essential (primary) hypertension Pure hypercholesterolemia Stenosis of left carotid artery History of coronary artery stent placement Nocturnal muscle cramps Stenosis of left carotid artery Chief Complaint OCCLUSION OF STENOSI S OF LEFT CAROTID ARTERY DISCUSS CTA 1 Y FU GI Reason for Visit Stenosis of left car otid artery Essential (primary) hypertension Pure hypercholesterolemia History of coronary artery stent placement Reason for Referral Specialty Diagnoses / Procedures Referred By Marlon jj Referred To Contact Neurology Diagnoses Numbness and tingling of right arm Cervical spondylosis Procedures CONSULT TO NEUROLOGY OFFICE/OUTPATIENT [facility] 60-74 MINUTES Older, Jillian, EVENTS INTERN.EXHIBIT SPECIALIST [address] [place] [address] Referral ID Status Reason Start Date Expiration Date Visits Requested Visits Authorized [id number] Authorized PCP Requested Referral 2 03/23/2023 1 1 Specialty Diagnoses / Procedures Referred By Marlon jj Referred To Contact Orthopedics Diagnoses Carpal tunnel syndrome of right wrist Procedures CONSULT TO ORTHOPAEDICS OFFICE/OUTPATIENT [facility] 60-74 MINUTES Older, Jillian, EVENTS INTERN.EXHIBIT SPECIALIST [address] [place] [address] Referral ID Status Reason Start Date Expiration Date Visits Requested Visits Authorized [id number] Authorized PCP Requested Referral 2 04/03/2023 1 1 Specialty Diagnoses / Procedures Referred By Contac t Referred To Contact [facility] Diagnoses Cervical stenosis of spinal canal Procedures CONSULT TO PHYSICAL THERAPY PHYSICAL THERAPY EVALUATION HIGH COMPLEX 45 MINS Avni Casillas MD [address] [facility] [place] [address] [facility] [address] [address] Referral ID Status Reason Start Date Expiration Date Visits Requested Visits Authorized [id number] Pending Review Auto-Generat ed Referral 07/10/2022 07/10/2023 1 1 Specialty Diagnoses / Procedures Referred By Contac t Referred To Contact [facility] Diagnoses Incontinence of feces, unspecified fecal incontinence type Procedures CONSULT TO PHYSICAL THERAPY PHYSICAL THERAPY EVALUATION HIGH COMPLEX 45 MINS Chanell Givens MD [address] [place] [address] [facility] [address] [address] Referral ID Status Reason Start Date Expiration Date Visits Requested Visits Authorized [id number] Pending Review Auto-Generat ed Referral 01/30/2023 01/30/2024 1 1 Specialty Diagnoses / Procedures Referred By Contac t Referred To Contact CT IMAGING Diagnoses Pulmonary nodule Procedures CT CHEST WO IVCON DIAGNOSTIC COMPUTED TOMOGRAPHY THORAX W/O CNTRST Lisa Peter MD [address] [place] [address] [address] [facility] Referral ID Status Reason Start Date Expiration Date V isits Requested Visits Authorized [id number] Closed Auto-Generate d Referral 10/22/2022 08/24/2023 1 1 Specialty Diagnoses / Procedures Referred By Contac t Referred To Contact CT IMAGING Diagnoses Lung nodules Procedures CT CHEST WO IVCON DIAGNOSTIC COMPUTED TOMOGRAPHY THORAX W/O CNTRSDarius Samayoa MD [facility] [place] [address] Ct Imaging [facility] Referral ID Status Reason Start Date Expiration Date V isits Requested Visits Authorized [id number] Closed Auto-Generate d Referral 01/18/2023 02/17/2024 1 1 Specialty Diagnoses / Procedures Referred By Contac t Referred To Contact Gastroenterology Diagnoses Colitis Blood in stool Procedures CONSULT TO GASTROENTEROLOGY OFFICE/OUTPATIENT [facility] 60 MINUTES Nisreen Bermudez PA-C [address] [place] [address] Referral ID Status Reason Start Date Expiration Date Visits Requested Visits Authorized [id number] Authorized PCP Requested Referral 07/24/2023 07/23/2024 1 1 Specialty Diagnoses / Procedures Referred By Contac t Referred To Contact MR IMAGING Diagnoses Acute pain of right shoulder Injury of right shoulder, subsequent encounter Procedures MRI SHOULDER WO IVCON RIGHT MRI ANY JT UPPER EXTREMITY W/O CONTRAST MATRL Katey Solano APRN.GERIATRICIAN [address] [place] [address] [place] [address] Referral ID Status Reason Start Date Expiration Date Visits Requested Visits Authorized [id number] Authorized Auto-Generat ed Referral 08/27/2023 09/25/2024 1 1 Specialty Diagnoses / Procedures Referred By Contac t Referred To Contact [facility] Diagnoses Acute pain of right shoulder Injury of right shoulder, subsequent encounter Procedures CONSULT TO PHYSICAL THERAPY PHYSICAL THERAPY EVALUATION HIGH COMPLEX 45 MINS Katey Solano APRN.GERIATRICIAN [address] [place] [address] [facility] [place] [address] [place] [address] Referral ID Status Reason Start Date Expiration Date Visits Requested Visits Authorized [id number] Pending Review Auto-Generat ed Referral 08/27/2023 08/26/2024 1 1 Specialty Diagnoses / Procedures Referred By Contac t Referred To Contact Orthopedics Diagnoses Acute pain of right shoulder Injury of right shoulder, subsequent encounter Procedures CONSULT TO ORTHOPAEDICS OFFICE/OUTPATIENT [facility] 60 MINUTES Katey Solano APRN.GERIATRICIAN [address] [place] [address] Referral ID Status Reason Start Date Expiration Date Visits Requested Visits Authorized [id number] Authorized PCP Requested Referral 08/27/2023 08/26/2024 1 1 Specialty Diagnoses / Procedures Referred By Contac t Referred To Contact CT IMAGING Diagnoses Left lower quadrant abdominal pain Procedures CT ABD/PEL W IVCON CT ABD & PELVIS W/CONTRAST Eric Lockett PA-C [address] [place] [address] [place] [address] Referral ID Status Reason Start Date Expiration Date Visits Requested Visits Authorized [id number] New Request Auto-Generat ed Referral 03/04/2024 04/03/2025 1 1 Health Concerns Infection Onset Date Last Indicated Resolved Time COVID-19 Confirmed 07/24/2023 07/24/2023 Infection Onset Date Last Indicated Resolved Time COVID-19 Confirmed 07/24/2023 07/24/2023 Infection Onset Date Last Indicated Resolved Time COVID-19 Confirmed 07/24/2023 07/24/2023 8:51 PM EST Additional Source Comments INFORMATION SOURCE (unrecogn ized section and content) DATE CREATED AUTHOR 08/13/2019 [facility] DATE CREATED AUTHOR AUTHOR'S ORGANIZ ATION 03/19/2020 [facility] DATE CREATED AUTHOR AUTHOR'S ORGANIZ ATION 07/25/2024 [facility] DATE CREATED AUTHOR AUTHOR'S ORGANIZ ATION 11/25/2024 [facility] Source Comments (unrecognize d section and content) In the event this informatio n is protected by the Federal Confidentiality of Alcohol and Drug Abuse Patient Records regulations: The Federal rules restrict any use of the information to criminally investigate or prosecute any alcohol or drug abuse patient.[facility] the event this information is protected by the Federal Confidentiality of Alcohol and Drug Abuse Patient Records regulations: The Federal rules restrict any use of the information to criminally investigate or prosecute any alcohol or drug abuse patient.[facility] the event this information is protected by the Federal Confidentiality of Alcohol and Drug Abuse Patient Records regulations: The Federal rules restrict any use of the information to criminally investigate or prosecute any alcohol or drug abuse patient.[facility] HospitalIn the event this information is protected by the Federal Confidentiality of Alcohol and Drug Abuse Patient Records regulations: The Federal rules restrict any use of the information to criminally investigate or prosecute any alcohol or drug abuse patient.[facility] the event this information is protected by the Federal Confidentiality of Alcohol and Drug Abuse Patient Records regulations: The Federal rules restrict any use of the information to criminally investigate or prosecute any alcohol or drug abuse patient.[facility] the event this information is protected by the Federal Confidentiality of Alcohol and Drug Abuse Patient Records regulations: The Federal rules restrict any use of the information to criminally investigate or prosecute any alcohol or drug abuse patient.[facility] Hospital[facility] the event this information is protected by the Federal Confidentiality of Alcohol and Drug Abuse Patient Records regulations: The Federal rules restrict any use of the information to criminally investigate or prosecute any alcohol or drug abuse patient.[facility] Hospital[facility] the event this information is protected by the Federal Confidentiality of Alcohol and Drug Abuse Patient Records regulations: The Federal rules restrict any use of the information to criminally investigate or prosecute any alcohol or drug abuse patient.[facility] Hospital[facility] the event this information is protected by the Federal Confidentiality of Alcohol and Drug Abuse Patient Records regulations: The Federal rules restrict any use of the information to criminally investigate or prosecute any alcohol or drug abuse patient.[facility] HospitalIn the event this information is protected by the Federal Confidentiality of Alcohol and Drug Abuse Patient Records regulations: The Federal rules restrict any use of the information to criminally investigate or prosecute any alcohol or drug abuse patient.[facility] HospitalIn the event this information is protected by the Federal Confidentiality of Alcohol and Drug Abuse Patient Records regulations: The Federal rules restrict any use of the information to criminally investigate or prosecute any alcohol or drug abuse patient.[facility] HospitalIn the event this information is protected by the Federal Confidentiality of Alcohol and Drug Abuse Patient Records regulations: The Federal rules restrict any use of the information to criminally investigate or prosecute any alcohol or drug abuse patient.[facility] HospitalIn the event this information is protected by the Federal Confidentiality of Alcohol and Drug Abuse Patient Records regulations: The Federal rules restrict any use of the information to criminally investigate or prosecute any alcohol or drug abuse patient.[facility] HospitalIn the event this information is protected by the Federal Confidentiality of Alcohol and Drug Abuse Patient Records regulations: The Federal rules restrict any use of the information to criminally investigate or prosecute any alcohol or drug abuse patient.[facility] HospitalIn the event this information is protected by the Federal Confidentiality of Alcohol and Drug Abuse Patient Records regulations: The Federal rules restrict any use of the information to criminally investigate or prosecute any alcohol or drug abuse patient.[facility] HospitalIn the event this information is protected by the Federal Confidentiality of Alcohol and Drug Abuse Patient Records regulations: The Federal rules restrict any use of the information to criminally investigate or prosecute any alcohol or drug abuse patient.[facility] HospitalIn the event this information is protected by the Federal Confidentiality of Alcohol and Drug Abuse Patient Records regulations: The Federal rules restrict any use of the information to criminally investigate or prosecute any alcohol or drug abuse patient.[facility] HospitalIn the event this information is protected by the Federal Confidentiality of Alcohol and Drug Abuse Patient Records regulations: The Federal rules restrict any use of the information to criminally investigate or prosecute any alcohol or drug abuse patient.[facility] HospitalIn the event this information is protected by the Federal Confidentiality of Alcohol and Drug Abuse Patient Records regulations: The Federal rules restrict any use of the information to criminally investigate or prosecute any alcohol or drug abuse patient.[facility] HospitalIn the event this information is protected by the Federal Confidentiality of Alcohol and Drug Abuse Patient Records regulations: The Federal rules restrict any use of the information to criminally investigate or prosecute any alcohol or drug abuse patient.[facility] HospitalIn the event this information is protected by the Federal Confidentiality of Alcohol and Drug Abuse Patient Records regulations: The Federal rules restrict any use of the information to criminally investigate or prosecute any alcohol or drug abuse patient.[facility] HospitalIn the event this information is protected by the Federal Confidentiality of Alcohol and Drug Abuse Patient Records regulations: The Federal rules restrict any use of the information to criminally investigate or prosecute any alcohol or drug abuse patient.[facility] HospitalIn the event this information is protected by the Federal Confidentiality of Alcohol and Drug Abuse Patient Records regulations: The Federal rules restrict any use of the information to criminally investigate or prosecute any alcohol or drug abuse patient.[facility] HospitalIn the event this information is protected by the Federal Confidentiality of Alcohol and Drug Abuse Patient Records regulations: The Federal rules restrict any use of the information to criminally investigate or prosecute any alcohol or drug abuse patient.[facility] HospitalIn the event this information is protected by the Federal Confidentiality of Alcohol and Drug Abuse Patient Records regulations: The Federal rules restrict any use of the information to criminally investigate or prosecute any alcohol or drug abuse patient.[facility] HospitalIn the event this information is protected by the Federal Confidentiality of Alcohol and Drug Abuse Patient Records regulations: The Federal rules restrict any use of the information to criminally investigate or prosecute any alcohol or drug abuse patient.[facility] HospitalIn the event this information is protected by the Federal Confidentiality of Alcohol and Drug Abuse Patient Records regulations: The Federal rules restrict any use of the information to criminally investigate or prosecute any alcohol or drug abuse patient.[facility] HospitalIn the event this information is protected by the Federal Confidentiality of Alcohol and Drug Abuse Patient Records regulations: The Federal rules restrict any use of the information to criminally investigate or prosecute any alcohol or drug abuse patient.[facility] HospitalIn the event this information is protected by the Federal Confidentiality of Alcohol and Drug Abuse Patient Records regulations: The Federal rules restrict any use of the information to criminally investigate or prosecute any alcohol or drug abuse patient.[facility] HospitalIn the event this information is protected by the Federal Confidentiality of Alcohol and Drug Abuse Patient Records regulations: The Federal rules restrict any use of the information to criminally investigate or prosecute any alcohol or drug abuse patient.[facility] HospitalIn the event this information is protected by the Federal Confidentiality of Alcohol and Drug Abuse Patient Records regulations: The Federal rules restrict any use of the information to criminally investigate or prosecute any alcohol or drug abuse patient.[facility] HospitalIn the event this information is protected by the Federal Confidentiality of Alcohol and Drug Abuse Patient Records regulations: The Federal rules restrict any use of the information to criminally investigate or prosecute any alcohol or drug abuse patient.[facility] HospitalIn the event this information is protected by the Federal Confidentiality of Alcohol and Drug Abuse Patient Records regulations: The Federal rules restrict any use of the information to criminally investigate or prosecute any alcohol or drug abuse patient.[facility] HospitalIn the event this information is protected by the Federal Confidentiality of Alcohol and Drug Abuse Patient Records regulations: The Federal rules restrict any use of the information to criminally investigate or prosecute any alcohol or drug abuse patient.[facility] HospitalIn the event this information is protected by the Federal Confidentiality of Alcohol and Drug Abuse Patient Records regulations: The Federal rules restrict any use of the information to criminally investigate or prosecute any alcohol or drug abuse patient.[facility] HospitalIn the event this information is protected by the Federal Confidentiality of Alcohol and Drug Abuse Patient Records regulations: The Federal rules restrict any use of the information to criminally investigate or prosecute any alcohol or drug abuse patient.[facility] HospitalIn the event this information is protected by the Federal Confidentiality of Alcohol and Drug Abuse Patient Records regulations: The Federal rules restrict any use of the information to criminally investigate or prosecute any alcohol or drug abuse patient.[facility] HospitalIn the event this information is protected by the Federal Confidentiality of Alcohol and Drug Abuse Patient Records regulations: The Federal rules restrict any use of the information to criminally investigate or prosecute any alcohol or drug abuse patient.[facility] HospitalIn the event this information is protected by the Federal Confidentiality of Alcohol and Drug Abuse Patient Records regulations: The Federal rules restrict any use of the information to criminally investigate or prosecute any alcohol or drug abuse patient.[facility] HospitalIn the event this information is protected by the Federal Confidentiality of Alcohol and Drug Abuse Patient Records regulations: The Federal rules restrict any use of the information to criminally investigate or prosecute any alcohol or drug abuse patient.[facility] HospitalIn the event this information is protected by the Federal Confidentiality of Alcohol and Drug Abuse Patient Records regulations: The Federal rules restrict any use of the information to criminally investigate or prosecute any alcohol or drug abuse patient.[facility] HospitalIn the event this information is protected by the Federal Confidentiality of Alcohol and Drug Abuse Patient Records regulations: The Federal rules restrict any use of the information to criminally investigate or prosecute any alcohol or drug abuse patient.[facility] HospitalIn the event this information is protected by the Federal Confidentiality of Alcohol and Drug Abuse Patient Records regulations: The Federal rules restrict any use of the information to criminally investigate or prosecute any alcohol or drug abuse patient.[facility] HospitalIn the event this information is protected by the Federal Confidentiality of Alcohol and Drug Abuse Patient Records regulations: The Federal rules restrict any use of the information to criminally investigate or prosecute any alcohol or drug abuse patient.[facility] HospitalIn the event this information is protected by the Federal Confidentiality of Alcohol and Drug Abuse Patient Records regulations: The Federal rules restrict any use of the information to criminally investigate or prosecute any alcohol or drug abuse patient.[facility] HospitalIn the event this information is protected by the Federal Confidentiality of Alcohol and Drug Abuse Patient Records regulations: The Federal rules restrict any use of the information to criminally investigate or prosecute any alcohol or drug abuse patient.[facility] HospitalIn the event this information is protected by the Federal Confidentiality of Alcohol and Drug Abuse Patient Records regulations: The Federal rules restrict any use of the information to criminally investigate or prosecute any alcohol or drug abuse patient.[facility] HospitalIn the event this information is protected by the Federal Confidentiality of Alcohol and Drug Abuse Patient Records regulations: The Federal rules restrict any use of the information to criminally investigate or prosecute any alcohol or drug abuse patient.[facility] HospitalIn the event this information is protected by the Federal Confidentiality of Alcohol and Drug Abuse Patient Records regulations: The Federal rules restrict any use of the information to criminally investigate or prosecute any alcohol or drug abuse patient.[facility] HospitalIn the event this information is protected by the Federal Confidentiality of Alcohol and Drug Abuse Patient Records regulations: The Federal rules restrict any use of the information to criminally investigate or prosecute any alcohol or drug abuse patient.[facility] HospitalIn the event this information is protected by the Federal Confidentiality of Alcohol and Drug Abuse Patient Records regulations: The Federal rules restrict any use of the information to criminally investigate or prosecute any alcohol or drug abuse patient.[facility] HospitalIn the event this information is protected by the Federal Confidentiality of Alcohol and Drug Abuse Patient Records regulations: The Federal rules restrict any use of the information to criminally investigate or prosecute any alcohol or drug abuse patient.[facility] HospitalIn the event this information is protected by the Federal Confidentiality of Alcohol and Drug Abuse Patient Records regulations: The Federal rules restrict any use of the information to criminally investigate or prosecute any alcohol or drug abuse patient.[facility] HospitalIn the event this information is protected by the Federal Confidentiality of Alcohol and Drug Abuse Patient Records regulations: The Federal rules restrict any use of the information to criminally investigate or prosecute any alcohol or drug abuse patient.[facility] HospitalIn the event this information is protected by the Federal Confidentiality of Alcohol and Drug Abuse Patient Records regulations: The Federal rules restrict any use of the information to criminally investigate or prosecute any alcohol or drug abuse patient.[facility] HospitalIn the event this information is protected by the Federal Confidentiality of Alcohol and Drug Abuse Patient Records regulations: The Federal rules restrict any use of the information to criminally investigate or prosecute any alcohol or drug abuse patient.[facility] HospitalIn the event this information is protected by the Federal Confidentiality of Alcohol and Drug Abuse Patient Records regulations: The Federal rules restrict any use of the information to criminally investigate or prosecute any alcohol or drug abuse patient.[facility] HospitalIn the event this information is protected by the Federal Confidentiality of Alcohol and Drug Abuse Patient Records regulations: The Federal rules restrict any use of the information to criminally investigate or prosecute any alcohol or drug abuse patient.[facility] HospitalIn the event this information is protected by the Federal Confidentiality of Alcohol and Drug Abuse Patient Records regulations: The Federal rules restrict any use of the information to criminally investigate or prosecute any alcohol or drug abuse patient.[facility] HospitalIn the event this information is protected by the Federal Confidentiality of Alcohol and Drug Abuse Patient Records regulations: The Federal rules restrict any use of the information to criminally investigate or prosecute any alcohol or drug abuse patient.[facility] HospitalIn the event this information is protected by the Federal Confidentiality of Alcohol and Drug Abuse Patient Records regulations: The Federal rules restrict any use of the information to criminally investigate or prosecute any alcohol or drug abuse patient.[facility] HospitalIn the event this information is protected by the Federal Confidentiality of Alcohol and Drug Abuse Patient Records regulations: The Federal rules restrict any use of the information to criminally investigate or prosecute any alcohol or drug abuse patient.[facility] HospitalIn the event this information is protected by the Federal Confidentiality of Alcohol and Drug Abuse Patient Records regulations: The Federal rules restrict any use of the information to criminally investigate or prosecute any alcohol or drug abuse patient.[facility] HospitalIn the event this information is protected by the Federal Confidentiality of Alcohol and Drug Abuse Patient Records regulations: The Federal rules restrict any use of the information to criminally investigate or prosecute any alcohol or drug abuse patient.[facility] HospitalIn the event this information is protected by the Federal Confidentiality of Alcohol and Drug Abuse Patient Records regulations: The Federal rules restrict any use of the information to criminally investigate or prosecute any alcohol or drug abuse patient.[facility] HospitalIn the event this information is protected by the Federal Confidentiality of Alcohol and Drug Abuse Patient Records regulations: The Federal rules restrict any use of the information to criminally investigate or prosecute any alcohol or drug abuse patient.[facility] HospitalIn the event this information is protected by the Federal Confidentiality of Alcohol and Drug Abuse Patient Records regulations: The Federal rules restrict any use of the information to criminally investigate or prosecute any alcohol or drug abuse patient.[facility] HospitalIn the event this information is protected by the Federal Confidentiality of Alcohol and Drug Abuse Patient Records regulations: The Federal rules restrict any use of the information to criminally investigate or prosecute any alcohol or drug abuse patient.[facility] HospitalIn the event this information is protected by the Federal Confidentiality of Alcohol and Drug Abuse Patient Records regulations: The Federal rules restrict any use of the information to criminally investigate or prosecute any alcohol or drug abuse patient.[facility] HospitalIn the event this information is protected by the Federal Confidentiality of Alcohol and Drug Abuse Patient Records regulations: The Federal rules restrict any use of the information to criminally investigate or prosecute any alcohol or drug abuse patient.[facility] HospitalIn the event this information is protected by the Federal Confidentiality of Alcohol and Drug Abuse Patient Records regulations: The Federal rules restrict any use of the information to criminally investigate or prosecute any alcohol or drug abuse patient.[facility] HospitalIn the event this information is protected by the Federal Confidentiality of Alcohol and Drug Abuse Patient Records regulations: The Federal rules restrict any use of the information to criminally investigate or prosecute any alcohol or drug abuse patient.[facility] HospitalIn the event this information is protected by the Federal Confidentiality of Alcohol and Drug Abuse Patient Records regulations: The Federal rules restrict any use of the information to criminally investigate or prosecute any alcohol or drug abuse patient.[facility] HospitalIn the event this information is protected by the Federal Confidentiality of Alcohol and Drug Abuse Patient Records regulations: The Federal rules restrict any use of the information to criminally investigate or prosecute any alcohol or drug abuse patient.[facility] HospitalIn the event this information is protected by the Federal Confidentiality of Alcohol and Drug Abuse Patient Records regulations: The Federal rules restrict any use of the information to criminally investigate or prosecute any alcohol or drug abuse patient.[facility] HospitalIn the event this information is protected by the Federal Confidentiality of Alcohol and Drug Abuse Patient Records regulations: The Federal rules restrict any use of the information to criminally investigate or prosecute any alcohol or drug abuse patient.[facility] Reason for Visit (unrecogniz ed section and content) Reason Comments PT Discharge Specialty Diagnoses / Procedures Referred By Marlon jj Referred To Contact [facility] Diagnoses Incontinence of feces, unspecified fecal incontinence type Procedures CONSULT TO PHYSICAL THERAPY PHYSICAL THERAPY EVALUATION HIGH COMPLEX 45 MINS Chanell Givens MD [address] [place] [address] [facility] [place] [address] [place] [address] Referral ID Status Reason Start Date Expiration Date Visits Requested Visits Authorized [id number] Authorized Auto-Generat ed Referral 08/09/2022 06/10/2023 20 [...] 03/31/2022 Specialty Diagnoses / Procedures Referred By Marlon jj Referred To [facility] Diagnoses Numbness and tingling of right arm Procedures EMG(NEURO/NI) NERVE CONDUCTION STUDIES 9-10 STUDIES Jillian Wray APRN.EXHIBIT SPECIALIST [address] [place] [address] [facility] [place] [address] [place] [address] Referral ID Status Reason Start Date Expiration Date V isits Requested Visits Authorized [id number] Closed Auto-Generate d Referral 03/17/2022 03/17/2023 1 1 Reason Onset Date Comments Refill Request 04/06/2022 Reason Comments Patient Update Reason Comments Ear Pain Reason Onset Date Comments Refill Request 06/08/2022 Reason Comments New Referred by Jillian Wray Last seen 08/22/12 Right CTS and cervical radiculopathy Specialty Diagnoses / Procedures Referred By Contac t Referred To Contact Orthopedics Diagnoses Carpal tunnel syndrome of right wrist Procedures CONSULT TO ORTHOPAEDICS OFFICE/OUTPATIENT NEW HIGH MDM 60-74 MINUTES Jillian Wray APRN.EXHIBIT SPECIALIST [address] [place] [address] Referral ID Status Reason Start Date Expiration Date V isits Requested Visits Authorized [id number] Closed PCP Requested Referral 04/03/2022 04/03/2023 1 [...] bleeding Procedures CONSULT TO GENERAL SURGERY OFFICE/OUTPATIENT NEW [facility] 60-74 MINUTES Darius Mace MD [address] [place] [address] Referral ID Status Reason Start Date Expiration Date Visits Requested Visits Authorized [id number] Pending Review PCP Requested Referral 01/18/2023 01/18/2024 1 1 Reason Onset Date Comments Refill Request 03/03/2023 Reason Comments PT Eval Reason Comments Radiology US Specialty Diagnoses / Procedures Referred By Contac t Referred To Contact [facility] Diagnoses Kidney cyst, acquired Procedures US KIDNEY/BLADDER US RETROPERITONEAL REAL TIME W/IMAGE COMPLETE Darius Mace MD [address] [place] [address] [place] [address] Referral ID Status Reason Start Date Expiration Date V isits Requested Visits Authorized [id number] Closed Auto-Generate d Referral 01/18/2023 02/17/2024 1 [address] Specialty Diagnoses / Procedures Referred By Contac t Referred To Contact CT [facility] Diagnoses Pulmonary nodule Procedures CT CHEST WO IVCON DIAGNOSTIC COMPUTED TOMOGRAPHY THORAX W/O Lisa Humphreys MD [address] [place] [address] [place] [address] Referral ID Status Reason Start Date Expiration Date V isits Requested Visits Authorized [id number] Closed Auto-Generate d Referral 10/22/2022 08/24/2023 1 1 Specialty Diagnoses / Procedures Referred By Contac t Referred To Contact [facility] Diagnoses Lung nodules Procedures CT CHEST WO IVCON DIAGNOSTIC COMPUTED TOMOGRAPHY THORAX W/O Darius Hernandez MD [address] [place] [address] [place] [address] Referral ID Status Reason Start Date Expiration Date V isits Requested Visits Authorized [id number] Closed Auto-Generate d Referral 01/18/2023 02/17/2024 1 1 Reason Onset Date Comments Refill Request 04/26/2023 Specialty Diagnoses / Procedures Referred By Contac t Referred To Contact [facility] Diagnoses Liver cyst Procedures US ABD RIGHT UPPER QUADRANT US ABDOMINAL REAL TIME W/IMAGE LIMITED Darius Mace MD [address] [place] [address] [place] [address] Referral ID Status Reason Start Date Expiration Date V isits Requested Visits Authorized [id number] Closed Auto-Generate d Referral 07/21/2023 02/17/2024 1 1 Reason Comments ER F/U 07/13/23; GI Bleed, bl ood/mucus in stool with DIONNE abdominal pain;07/22 onset of flu like SX Reason Comments right shoulder pain Fell yesterday Reason Comments Appointment Reason Comments Pain r arm pain x 3 weeks Reason Comments Trauma Multiple tick bites all over x 5 days Reason Onset Date Comments Population Health Navigation Outreach 10/29/2023 [facility] Reason Comments Medication Question Reason Onset Date Comments Population Health Navigation Outreach 12/28/2023 [facility]lyss[facility] CURRENT [facility] workbench - AWV, Care gaps, HCC gap closure - [place] Reason Onset Date Comments Population [facility] Navigation Outreach 12/31/2023 [facility] Reason Comments Same Day Appointment Diarrhea since last evening and starting to experience other symptoms Reason Onset Date Comments Population [facility] Navigation Outreach 02/28/2024 [facility] Reason Comments Same Day Appointment cramps prior to bow el movements, stool black in past Reason Onset Date Comments Population [facility] Outreach 03/05/2024 [place] [facility] - [place] Reason Onset Date Comments Refill Request 03/10/2024 Reason Comments Patient Request Reason Comments Follow Up c/o fatigue and depr ession Reason Comments Dizziness Reason Onset Date Comments Refill Request 04/14/2024 Reason Comments Musculoskeletal Problem Left leg crampin g/spasticity x 1 month Specialty Diagnoses / Procedures Referred By Marlon t Referred To Contact [facility] Diagnoses Left leg pain Procedures US DVT LOWER LEFT DUP-SCAN XTR VEINS UNILATERAL/LIMITED STUDY Eric Lockett PA-C [address] [place] [address] [place] [address] Referral ID Status Reason Start Date Expiration Date V isits Requested Visits Authorized [id number] Closed Auto-Generate d Referral 06/30/2024 07/30/2025 1 1 Reason Comments Follow Up Reason Onset Date Comments Refill Request 10/15/2024 Reason Comments Patient Update Orders Reason Comments Acute Visit Left big toe nail av ulsion with intermittent drainage & lower extremity edema; Need for wheelchair Reason Comments Hammer Toe Pain nail deformity New Bunion Swelling Specialty Diagnoses / Procedures Referred By Marlon t Referred To Contact Podiatry Diagnoses Hammer toes of both feet Bilateral bunions Procedures CONSULT TO PODIATRY OFFICE/OUTPATIENT [facility] 60 MINUTES Lisa Peter MD [address] [place] [address] Phone: tel: fax: Referral ID Status Reason Start Date Expiration Date V isits Requested Visits Authorized [id number] Closed PCP Requested Referral 10/13/2024 10/13/2025 1 1 Reason Comments Diarrhea X2 days Reason Comments Radiology CT Specialty Diagnoses / Procedures Referred By Marlon t Referred To Contact CT [facility] Diagnoses Pulmonary nodule Procedures CT CHEST WO IVCON DIAGNOSTIC COMPUTED TOMOGRAPHY THORAX W/O CNTRST Lisa Peter MD [address] [facility] [place] [address] Phone: tel: fax: [place] [address] Referral ID Status Reason Start Date Expiration Date V isits Requested Visits Authorized [id number] Closed Auto-Generate d Referral 11/14/2024 12/14/2025 1 1 Care Teams (unrecognized sec tion and content) Systems Engineering Manager Relationship Specialty Start Date End Date Lisa Peter MD [address] [facility] [place] [address] PCP - General Internal Medicine 04/06/16 Systems Engineering Manager Relationship Specialty Start Date End Date Lisa Peter MD [address] [place] [place] [address] PCP - General Internal Medicine 04/06/16 Systems Engineering Manager Relationship Specialty Start Date End Date Lisa Peter MD [address] [place] [place] [address] PCP - General Internal Medicine 04/06/16 Systems Engineering Manager Relationship Specialty Start Date End Date Lisa Peter MD [address] [place] [place] [address] PCP - General Internal Medicine 04/06/16 Systems Engineering Manager Relationship Specialty Start Date End Date Lisa Peter MD [address] [place] [place] [address] PCP - General Internal Medicine 04/06/16 Systems Engineering Manager Relationship Specialty Start Date End Date Lisa Peter MD [address] [place] [place] [address] PCP - General Internal Medicine 04/06/16 Systems Engineering Manager Relationship Specialty Start Date End Date Lisa Peter MD [address] [place] [address] PCP - General Internal Medicine 04/06/16 Systems Engineering Manager Relationship Specialty Start Date End Date Lisa Peter MD [address] [place] [address] PCP - General Internal Medicine 04/06/16 Systems Engineering Manager Relationship Specialty Start Date End Date Lisa Peter MD [address] [facility] [place] [address] PCP - General Internal Medicine 04/06/16 Systems Engineering Manager Relationship Specialty Start Date End Date Lisa Peter MD [address] [facility] [place] [address] PCP - General Internal Medicine 04/06/16 Systems Engineering Manager Relationship Specialty Start Date End Date Lisa Peter MD [address] [facility] [place] [address] PCP - General Internal Medicine 04/06/16 Systems Engineering Manager Relationship Specialty Start Date End Date Lisa Peter MD [address] [facility] [place] [address] PCP - General Internal Medicine 04/06/16 Systems Engineering Manager Relationship Specialty Start Date End Date Lisa Peter MD [address] [facility] [place] [address] PCP - General Internal Medicine 04/06/16 Systems Engineering Manager Relationship Specialty Start Date End Date Lisa Peter MD [address] [facility] [place] [address] PCP - General Internal Medicine 04/06/16 Team Status: Active Member Role Status Dates Dr. Lisa Peter MD Family Provider Active Dr. Lisa Peter MD Primary Care Provider Active Team Status: Inactive Member Role Status Dates Dr. Lisa Peter MD Primary Care Provider, Referring Provider Active Dr. Enrique Zarate MD Active Selma MEJIA, PA Attending Provider Active Team Status: Inactive Member Role Status Dates Dr. Lisa Peter MD Primary Care Provider Active Selma MEJIA, [place] Attending Provider, Referr ing Provider Active Team Status: Inactive Member Role Status Dates Dr. Lisa Peter MD Primary Care Provider Active Dr. Avni Casillas MD Attending Provider, Referring Provider Active Systems Engineering Manager Relationship Specialty Start Date End Date Lisa Peter MD [address] [place] [address] PCP - General Internal Medicine 04/06/16 Systems Engineering Manager Relationship Specialty Start Date End Date Lisa Peter MD [address] [place] [address] PCP - General Internal Medicine 04/06/16 Systems Engineering Manager Relationship Specialty Start Date End Date Lisa Peter MD [address] [place] [address] PCP - General Internal Medicine 04/06/16 Systems Engineering Manager Relationship Specialty Start Date End Date Lisa Peter MD [address] [place] [address] PCP - General Internal Medicine 04/06/16 Systems Engineering Manager Relationship Specialty Start Date End Date Lisa Peter MD [address] [place], [place] [address] PCP - General Internal Medicine 04/06/16 Team Status: Inactive Member Role Status Dates Dr. Lisa Peter MD Primary Care Provider, Referring Provider Active Obey Ballard SCHEDULING MANAGER, SCHEDULING MANAGER-C Attending Provider Active Team Status: Active Member Role Status Dates Dr. Lisa Peter MD Primary Care Provider Active Dr. Edu Caceres MD Attending Provider Active Team Status: Active Member Role Status Dates Dr. Lisa Peter MD Primary Care Provider Active Obey Ballard SCHEDULING MANAGER, SCHEDULING MANAGER-C Attending Provider Active Team Status: Inactive Member Role Status Dates Dr. Lisa Peter MD Primary Care Provider Active Obey Ballard SCHEDULING MANAGER, SCHEDULING MANAGER-C Attending Provider, Referring Pro vider Active Systems Engineering Manager Relationship Specialty Start Date End Date Lisa Peter MD [address] [place], [place] [address] PCP - General Internal Medicine 04/06/16 Systems Engineering Manager Relationship Specialty Start Date End Date Lisa Peter MD [address] [place] [address] PCP - General Internal Medicine 04/06/16 Systems Engineering Manager Relationship Specialty Start Date End Date Lisa Peter MD [address] [place] [address] PCP - General Internal Medicine 04/06/16 Systems Engineering Manager Relationship Specialty Start Date End Date Lisa Peter MD [address] [place] [address] PCP - General Internal Medicine 04/06/16 Systems Engineering Manager Relationship Specialty Start Date End Date Lisa Peter MD [address] [place] [address] PCP - General Internal Medicine 04/06/16 Team Status: Active Member Role Status Dates Dr. Lisa Peter MD Primary Care Provider Active Dr. Edu Caceres MD Attending Provider Active Obey Ballard SCHEDULING MANAGER, SCHEDULING MANAGER-C Referring Provider Active Team Status: Inactive Member Role Status Dates Dr. Lisa Peter MD Primary Care Provider, Referring Provider Active ROBERTO Pagan Attending Provider Active Team Status: Inactive Member Role Status Dates Dr. Lisa Peter MD Primary Care Provider Active ROBERTO Pagan Attending Provider, Referring Provid er Active Systems Engineering Manager Relationship Specialty Start Date End Date Lisa Peter MD [address] [place] [address] PCP - General Internal Medicine 04/06/16 Systems Engineering Manager Relationship Specialty Start Date End Date Lisa Peter MD [address] [place] [address] PCP - General Internal Medicine 04/06/16 Team Status: Inactive Member Role Status Dates Dr. Lisa Peter MD Primary Care Provider, Referring Provider Active Dr. Enrique Zarate MD Attending Provider Active Team Status: Inactive Member Role Status Dates Dr. Lisa Peter MD Primary Care Provider, Referring Provider Active Dr. Edu Caceres MD Attending Provider Active Team Status: Inactive Member Role Status Dates Dr. Lisa Peter MD Primary Care Provider Active Dr. Carolin Nolasco MD Emergency Provider Active Systems Engineering Manager Relationship Specialty Start Date End Date Lisa Peter MD [address] [facility] [place] [address] PCP - General Internal Medicine 04/06/16 Systems Engineering Manager Relationship Specialty Start Date End Date Lisa Peter MD [address] [facility] [place] [address] PCP - General Internal Medicine 04/06/16 Systems Engineering Manager Relationship Specialty Start Date End Date Lisa Peter MD [address] [place] [address] PCP - General Internal Medicine 04/06/16 Systems Engineering Manager Relationship Specialty Start Date End Date Lisa Peter MD [address] [facility] [place] [address] PCP - General Internal Medicine 04/06/16 Systems Engineering Manager Relationship Specialty Start Date End Date Lisa Peter MD [address] [place] [address] PCP - General Internal Medicine 04/06/16 Systems Engineering Manager Relationship Specialty Start Date End Date Lisa Peter MD [address] [facility] [place] [address] PCP - General Internal Medicine 04/06/16 Systems Engineering Manager Relationship Specialty Start Date End Date Lisa Peter MD [address] [facility] [place] [address] PCP - General Internal Medicine 04/06/16 Systems Engineering Manager Relationship Specialty Start Date End Date Lisa Peter MD [address] [facility] [place] [address] PCP - General Internal Medicine 04/06/16 Systems Engineering Manager Relationship Specialty Start Date End Date Lisa Peter MD [address] [facility] [place] [address] PCP - General Internal Medicine 04/06/16 Systems Engineering Manager Relationship Specialty Start Date End Date Lisa Peter MD [address] [facility] [address] PCP - General Internal Medicine 04/06/16 Systems Engineering Manager Relationship Specialty Start Date End Date Lisa Peter MD [address] [facility] [place] [address] PCP - General Internal Medicine 04/06/16 Systems Engineering Manager Relationship Specialty Start Date End Date Lisa Peter MD [address] [facility] [place] [address] PCP - General Internal Medicine 04/06/16 Systems Engineering Manager Relationship Specialty Start Date End Date Lisa Peter MD [address] [facility] [place] [address] PCP - General Internal Medicine 04/06/16 Systems Engineering Manager Relationship Specialty Start Date End Date Lisa Peter MD [address] [facility] [address] PCP - General Internal Medicine 04/06/16 Systems Engineering Manager Relationship Specialty Start Date End Date Lisa Peter MD [address] [facility] [place] [address] PCP - General Internal Medicine 04/06/16 Systems Engineering Manager Relationship Specialty Start Date End Date Lisa Peter MD [address] [place] [address] PCP - General Internal Medicine 04/06/16 Systems Engineering Manager Relationship Specialty Start Date End Date Lisa Peter MD [address] [place] [address] PCP - General Internal Medicine 04/06/16 Systems Engineering Manager Relationship Specialty Start Date End Date Lisa Peter MD [address] [place] [address] PCP - General Internal Medicine 04/06/16 Nisreen Bermudez PA-C [address] [place] [phone] Email Marketing Assistant Family Medicine 05/18/24 Jillian Wray APRN.CNP [address] [place] [address] Email Marketing Assistant Internal Medicine 05/18/24 Eric Lockett PA-C [address] [place] [address] Email Marketing Assistant Family Medicine 05/18/24 Systems Engineering Manager Relationship Specialty Start Date End Date Lisa Peter MD [address] [place] [address] PCP - General Internal Medicine 04/06/16 Nisreen Bermudez PA-C [address] [place], [place] [id number] [phone] Email Marketing Assistant Family Medicine 05/18/24 Jillian Wray APRN.EXHIBIT SPECIALIST [address] [place] [address] Email Marketing Assistant Internal Medicine 05/18/24 rEic Lockett PA-C [address] [place] [address] Email Marketing Assistant Family [facility] 05/18/24 Systems Engineering Manager Relationship Specialty Start Date End Date Lisa Peter MD [address] [place] [address] PCP - General Internal Medicine 04/06/16 Nisreen Bermudez PA-C [address] [place] [address] Email Marketing Assistant Family Medicine 05/18/24 Jillian Wray APRN.EXHIBIT SPECIALIST [address] [place] [address] Email Marketing Assistant Internal Medicine 05/18/24 Eric Lockett PA-C [address] [place] [address] Email Marketing Assistant Family [facility] 05/18/24 Systems Engineering Manager Relationship Specialty Start Date End Date Lisa Peter MD [address] [place] [address] PCP - General Internal Medicine 04/06/16 Nisreen Bermudez PA-C [address] [place], [place] [phone] Email Marketing Assistant Family Medicine 05/18/24 Jillian Wray APRN.EXHIBIT SPECIALIST [address] [place] [address] Email Marketing Assistant Internal Medicine 05/18/24 Eric Lockett PA-C [address] [place] [address] Email Marketing Assistant Family Medicine 05/18/24 Systems Engineering Manager Relationship Specialty Start Date End Date Lisa Peter MD [address] [place] [address] PCP - General Internal Medicine 04/06/16 Nisreen Bermudez PA-C [address] [place] [phone] Email Marketing Assistant Family Medicine 05/18/24 Jillian Wray APRN.EXHIBIT SPECIALIST [address] [place] [address] Email Marketing Assistant Internal Medicine 05/18/24 Eric Lockett PA-C [address] [place] [address] Email Marketing Assistant Family Medicine 05/18/24 Systems Engineering Manager Relationship Specialty Start Date End Date Lisa Peter MD [address] [place] [address] PCP - General Internal Medicine 04/06/16 Nisreen Bermudez PA-C [address] [place] [address] Email Marketing Assistant Family Medicine 05/18/24 Jillian Wray APRN.EXHIBIT SPECIALIST [address] [place] [address] Email Marketing Assistant Internal Medicine 05/18/24 Eric Lockett PA-C [address] [facility] [place] [address] Email Marketing Assistant Family Medicine 05/18/24 Systems Engineering Manager Relationship Specialty Start Date End Date Lisa Peter MD [address] [facility] [place] [address] PCP - General Internal Medicine 04/06/16 Nisreen Bermudez PA-C [address] [place] [phone] Email Marketing Assistant Family Medicine 05/18/24 08/31/24 Jillian Wray APRN.EXHIBIT SPECIALIST [address] [place] [address] Email Marketing Assistant Internal Medicine 05/18/24 Eric Lockett PA-C [address] [facility] [place] [address] Email Marketing Assistant Family Medicine 05/18/24 08/31/24 Systems Engineering Manager Relationship Specialty Start Date End Date Lisa Peter MD [address] [facility] [place] [address] PCP - General Internal Medicine 04/06/16 Jillian Wray APRN.EXHIBIT SPECIALIST [address] [place] [address] Email Marketing Assistant Internal Medicine 05/18/24 Systems Engineering Manager Relationship Specialty Start Date End Date Lisa Peter MD [address] [place] [address] PCP - General Internal Medicine 04/06/16 Jillian Wray APRN.EXHIBIT SPECIALIST [address] [place] [address] Email Marketing Assistant Internal Medicine 05/18/24 Systems Engineering Manager Relationship Specialty Start Date End Date Lisa Peter MD [address] [place] [address] PCP - General Internal Medicine 04/06/16 Jillian Wray APRN.EXHIBIT SPECIALIST [address] [place] [address] Email Marketing Assistant Internal Medicine 05/18/24 Systems Engineering Manager Relationship Specialty Start Date End Date Lisa Peter MD [address] [place], [place] [address] PCP - General Internal Medicine 04/06/16 Nisreen Bermudez PA-C [address] [place] [phone] Email Marketing Assistant Family Medicine 05/18/24 08/31/24 Jillian Wray APRN.EXHIBIT SPECIALIST [address] [place] [address] Email Marketing Assistant Internal Medicine 05/18/24 Eric Lockett PA-C [address] [place], [place] [address] Email Marketing Assistant Family Medicine 05/18/24 08/31/24 Systems Engineering Manager Relationship Specialty Start Date End Date Lisa Peter MD [address] [place] [address] PCP - General Internal Medicine 04/06/16 Jillian Wray APRN.EXHIBIT SPECIALIST [address] [place] [address] Email Marketing Assistant Internal Medicine 05/18/24 Systems Engineering Manager Relationship Specialty Start Date End Date Lisa Peter MD [address] [place] [address] PCP - General Internal Medicine 04/06/16 Jillian Wray APRN.EXHIBIT SPECIALIST [address] [place] [address] [facility] Internal [facility] 05/18/24 Systems Engineering Manager Relationship Specialty Start Date End Date Lisa Peter MD [address] [place], [place] [address] PCP - General Internal Medicine 04/06/16 Jillian Wray APRN.EXHIBIT SPECIALIST [address] [place], [place] [id number] [facility] Internal [facility] 05/18/24 Goals (unrecognized section and content) Goals may be documented in a n alternate sectionGoals may be documented in an alternate sectionGoals may be documented in an alternate sectionGoals may be documented in an alternate sectionGoals may be documented in an alternate sectionGoals may be documented in an alternate sectionGoals may be documented in an alternate sectionGoals may be documented in an alternate section FOR RECORDS PERTAINING TO PATIENTS WHO ARE [...] BE BASED ON THE PRIMARY CLINICAL RECORDS. [facility] [employer] [facility]. provides no warranty or guarantee of the accuracy or completeness of information in this document.
--- NOTE | 2025-01-24 23:06 | EDS_ITS ---
HPI History of Present Illness Chief Complaint: Chest Pain Informant: patient Narrative Narrative: 84-year-old female presenting with chest discomfort that has been present for about 11 hours. She states that started around noon today, just after she had eaten. It felt like dull discomfort in her right upper back, a little bit in her right chest, nonpleuritic. She took a nitroglycerin because she has a history of 5 stents that started with discomfort in her back of some sort she is not sure if it was similar or not, but the nitro did not help. She took another nitro later and it did help and now her symptoms are significant better, upon evaluation she states they are going to I move around a little bit. Then she has a discomfort until she stops moving and it is gone again. She denies any other associated symptoms such as dyspnea, syncope, palpitations, diaphoresis. She did have a little bit of abdominal cramping earlier and nausea, she does not have that now. [facility] Medical History Stenosis of left carotid artery Essential (primary) hypertension Pure hypercholesterolemia Atherosclerosis of [place] coronary artery of [place] heart without angina pectoris Intermittent claudication Home Medications ?Medication ?Instructions ?Recorded ?Last Taken ?Type esomeprazole magnesium 40 mg 40 mg PO DAILY 05/17/22 U nknown History capsule,delayed release aspirin 81 mg tablet,delayed 81 mg PO DAILY #90 tabs 0 08/16/22 Unknown Rx release ezetimibe 10 mg tablet See Rx Instructions .Route 0 08/16/22 Unknown Rx .COMPLEX #90 TABLETS nitroglycerin 0.4 mg sublingual 0.4 mg sublingual Q5M PRN Chest 08/16/22 Unknown Rx tablet Pain #25 tabs levothyroxine 75 mcg tablet 75 mcg PO DAILY thyroid #9 0 tabs 10/31/23 Unknown Rx cholecalciferol (vitamin D3) 25 1,000 unit PO DAILY lawson pplement 07/02/24 Unknown History mcg (1,000 unit) tablet calcium carbonate 500 mg PO QDAY supplement Unknown History metoprolol tartrate 50 mg tablet 50 mg PO BID #180 tab s 10/15/24 Unknown Rx amlodipine 5 mg tablet 5 mg PO DAILY #90 tabs 11/05 Unknown Rx cholecalciferol (vitamin D3) 50 50 mcg PO DAILY Unknown History mcg (2,000 unit) capsule colestipol 1 gram tablet 1 g PO BID 01/24/25 Unknown History Allergy/AdvReac Type Severity Reaction Status Date / Time DEIRDRE Inhibitors Allergy Unknown Verified 01/24/25 22:20 ARB-Angiotensin Receptor Allergy Unknown Verified 01/24/25 22:20 Antagonist lisinopril AdvReac Intermediate Other Verified 01/24/25 22:20 atorvastatin calcium (From AdvReac Mild Unknown Verified 01/24/25 22:20 Lipitor) pravastatin (From Pravachol) AdvReac Mild Unknown Verified 01/24/25 22:20 Family History Mother CAD (coronary artery disease) Grandmother CAD (coronary artery disease) Surgical History History of appendectomy History of tonsillectomy History of left heart catheterization (08/13/17) History of coronary artery stent placement (05/22/19) Social History household members: none Smoking Status: Never smoker alcohol intake: never substance use type: does not use caffeine: No ROS ROS ED Constitutional Constitutional ED: Denies chills or fever(s) Eyes Eyes: Denies change in vision or diplopia ENT ENT ED: Denies rhinorrhea or sore throat Cardiovascular Cardiovascular: Reports as per HPI and chest pain; Denies palpitations or radiating jaw, neck or arm pain Respiratory/Chest Respiratory/Chest: Denies cough or dyspnea Gastrointestinal Gastrointestinal: Denies abdominal pain, diarrhea, nausea or vomiting Genitourinary Genitourinary ED: Denies dysuria or hematuria Musculoskeletal Musculoskeletal: Reports back pain; Denies neck pain Integumentary Denies abscess or rash Neurologic Neurologic: Denies headache(s), paresthesias or weakness Psychiatric Psychiatric: Denies anxiety or suicidal thoughts EXAM Physical Exam Const Vital Signs: 01/24/25 22:19 01/24/25 22:45 01/24/25 23:01 Temperature 98 F Temperature Source Temporal Pulse Rate 63 Respiratory Rate 18 Respiratory Effort Normal Non-Labored Blood Pressure 176/66 H Blood Pressure Mean 102 Pulse Ox 98 Oxygen Delivery Method Room Air Room Air 01/24/25 23:19 01/25/25 00:00 01/25/25 01:00 Temperature Temperature Source Pulse Rate 68 70 62 Respiratory Rate 12 16 17 Respiratory Effort Blood Pressure 169/71 H 151/68 H 160/73 H Blood Pressure Mean 103 95 102 Pulse Ox 100 97 99 Oxygen Delivery Method Room Air Room Air Room Air Positive well nourished and well developed Constitutional Narrative: Well-appearing pleasant no distress General Appearance ED: well developed and NAD HEENT Reports moist mucous membranes normocephalic and atraumatic Eyes PERRL and EOMs intact bilaterally Neck full ROM and supple Resp normal respiratory effort and clear to auscultation bilaterally Cardio regular rate, regular rhythm and no murmurs Rate: Negative for tachycardic Peripheral Pulses: pulses 2+ throughout GI non-distended GI Narrative: Mildly tender epigastrium otherwise benign abdomen no guarding or rebound negative Estrada Auscultation: normoactive bowel sounds Palpation: soft Back/Spine no CVA tenderness General Back: other FROM Extremity normal to inspection General Extremety ED: Negative for edema, pulses abnormal or tenderness General Extremity: Negative for edema or pulses abnormal Neuro oriented x3, CN's II-XII intact bilaterally and no sensory deficits noted Sensorium / Orientation: awake and alert Motor Exam: strength 5/5 throughout Psych mental status grossly normal Skin no rashes or lesions noted and no wounds Heart Score History: Moderately Suspicious ECG: Normal Age: >/= 65 years Risk Factors: >/= 3 Risk Factors or History of CAD Troponin: </= Normal Limit Score: 5 MDM MDM MDM Narrative Medical decision making narrative: Patient's EKG is reassuringly normal there is no repolarization abnormality. Certainly with her history of CAD, she needs a workup for possible acute coronary syndrome. I think this is not likely to be a PE. Her pulse is in the 60s and her oxygen saturations are 98% and symptoms are less compatible with that diagnosis. 1 view chest x-ray my interpretation does not show pneumonia or pneumothorax and is otherwise unremarkable. Her pulses are equal, she does not say this was sharp and tearing, was more of a dull discomfort, less likely to be an aortic dissection. 2 sequential troponin measurements are normal, actually decreasing. The rest of her labs are normal except for mild renal insufficiency which is nonspecific and probably unrelated. She was given a GI cocktail. Afterwards, she walked to and from the bathroom a couple times and she had no recurrence of her discomfort. At this time uncomfortable letting her go home. This is a relatively low risk chest pain event, close outpatient follow-up advised after the weekend. Lab Data Attestation: I reviewed the patient's lab results. Labs: Laboratory Results - last 24 hr 01/24/25 01/25/25 22:47 00:49 WBC 9.0 RBC 4.51 Hgb 13.2 Hct 38.0 MCV 84.3 MCH 29.3 MCHC 34.7 RDW Std Deviation 39.5 RDW Coeff of Taylor 13.0 Plt Count 189 MPV 12.0 Immature Gran % (Auto) 0.300 Neut % (Auto) 67.3 Lymph % (Auto) 20.0 [place] % (Auto) 8.8 Eos % (Auto) 3.0 Baso % (Auto) 0.6 Absolute Neuts (auto) 6.0 Absolute Lymphs (auto) 1.79 Nucleated RBC % 0 Sodium 139 Potassium 4.7 Chloride 104 Carbon Dioxide 23.8 Anion Gap 11 BUN 32 H Creatinine 1.22 H Estim Creat Clear Calc 30.58 L Est GFR (MDRD) Non-Af 43 L BUN/Creatinine Ratio 26.1 H Glucose 98 Calcium 9.7 Troponin T High Sens 11 Troponin T Hi Sens 2 Hr 10 Radiography Diagnostic Testing: Clinical Impression(s) from Imaging Studies Chest X-Ray 01/24/25 22:59 IMPRESSION: No evidence of acute cardiopulmonary disease. Reading Location: [id number] Rhythm Strip Rhythm Strip: Sinus Rhythm Rate: 63 Ectopy: None EKG Initial EKG: Attestation: I personally reviewed and interpreted this EKG as follows: Interpretation: Sinus Rhythm and No Acute Injury Pattern Comments: Nml axis & intervals; nml EKG Discharge Plan Triage Chief Complaint: Chest Pain ED Provider: Avni Anderson Dx/Rx/DC Orders Clinical Impression: Chest pain, unspecified Instructions: ED Chest Pain, Noncardiac Prescriptions: No Action esomeprazole magnesium 40 mg capsule,delayed release(DR/EC) 40 mg PO DAILY ezetimibe 10 mg tablet See Rx Instructions .ROUTE .COMPLEX Qty: 90 3RF Dose Instruction: TAKE 1 TABLET DAILY Rx Instructions: TAKE 1 TABLET DAILY aspirin 81 mg tablet,delayed release (DR/EC) 81 mg PO DAILY Qty: 90 3RF nitroglycerin 0.4 mg tablet, sublingual 0.4 mg SUBLINGUAL Q5M PRN (Reason: Chest Pain) Qty: 25 3RF cholecalciferol (vitamin D3) 25 mcg (1,000 unit) tablet 1,000 unit PO DAILY Patient Comments: Pt stated it was decreased calcium carbonate 500 mg calcium (1,250 mg) tablet 500 mg PO QDAY colestipol 1 gram tablet 1 g PO BID cholecalciferol (vitamin D3) 50 mcg (2,000 unit) capsule 50 mcg PO DAILY levothyroxine 75 mcg tablet 75 mcg PO DAILY Qty: 90 3RF metoprolol tartrate 50 mg tablet 50 mg PO BID Qty: 180 3RF amlodipine 5 mg tablet 5 mg PO DAILY Qty: 90 3RF Primary Care Provider: Mamie Mendez Referrals: Mamie Mendez MD [Primary Care Provider] - 5-7 Days Print Language: Kazakh Disposition Disposition: Home, Self Care
[2025-01-24] MEDS: Lidocaine 2% Viscous15 ML UDC 15 ML PO (23:12)
[2025-01-24 23:19] VITALS: BP 169/71; PULSE 68; RESP 12; O2SAT 100
[2025-01-24 23:31] LABS: Differential Indicated SCAN CRITERIA MET; Hematocrit 38.0 % (37-47); Hemoglobin 13.2 g/dL (12.0-15.0); Immature Granulocytes Count 0.030 X10^3/uL (0.0-0.0); Mean Corp Hgb Conc 34.7 g/dL (32-36); Mean Corpuscular Volume 84.3 fL (81-99); Mean Platelet Vol. 12.0 fl (6.2-12.0); NRBC Flagged by Analyzer 0 % (0-5); POSITIVE COUNT YES; RBC Distribution Width CV 13.0 % (11.6-14.6); RBC Distribution Width SD 39.5 fl (35.1-43.9); Red Blood Count 4.51 M/mm3 (4.2-5.4); White Blood Count 9.0 K/mm3 (4.4-11.0)
[2025-01-24 23:36] LABS: Troponin T High Sensitivity 11 ng/L (<=14)
[2025-01-24 23:38] LABS: Anion Gap 11 (5-15); BUN 32 mg/dL (4-19); BUN/Creat Ratio 26.1 RATIO (10-20); Calcium,Total 9.7 mg/dL (7.6-11.0); Carbon Dioxide 23.8 mmol/L (21.0-32.0); Chloride 104 mmol/L (98-108); Estimated Creatinine Clearance 30.58 ml/min (50-250); Glucose 98 mg/dL (70-99); Potassium 4.7 mmol/L (3.3-5.1)
[2025-01-24 23:58] LABS: Platelet Count 189 K/mm3 (150-450)
[2025-01-25] VITALS: BP 151/68; PULSE 70; RESP 16; O2SAT 97
[2025-01-25 01:00] VITALS: BP 160/73; PULSE 62; RESP 17; O2SAT 99
[2025-01-25 01:10] LABS: Troponin T High Sens 2 HR 10 ng/L (<=14)
[2025-01-25 01:44] VITALS: BP 151/67; PULSE 70; RESP 18; TEMP 36.6; O2SAT 98
== END 2025-01-25 01:44 | disposition home or self-care (01) ==
PROVIDERS: Emergency Provider Emergency Medicine; PCP Internal Medicine; Visit Provider Emergency Medicine
DX: R07.89 Other chest pain (principal); I25.10 Atherosclerotic heart disease of native coronary artery without angina pectoris; I10 Essential (primary) hypertension; Z95.5 Presence of coronary angioplasty implant and graft; Z79.82 Long term (current) use of aspirin; Z79.899 Other long term (current) drug therapy
CPT/HCPCS: 71045; 80048; 84484; 85025; 93005; 99284; A4216